=== PATIENT | female | born 2000 | race Caucasian/White ===

== ENCOUNTER → 2020-01-01 | Outpatient (CLI) | payer MEDICAID, SELFPAY ==
[2020-01-01 13:32] VITALS: BMI 37.9
[2020-01-01 17:34] LABS: Amphetamine Urine VISTA NEGATIVE (<1000 ng/mL); Barbiturate Urine VISTA NEGATIVE (< 200 ng/mL); Benzodiazepine Urine VISTA NEGATIVE (< 200 ng/mL); Cocaine Urine VISTA NEGATIVE (< 300 ng/mL); Ecstacy Urine VISTA NEGATIVE (< 500 ng/mL); Methadone Urine VISTA NEGATIVE (< 300 ng/mL); PCP Urine VISTA NEGATIVE (< 25 ng/mL); THC Urine VISTA POSITIVE (< 50 ng/mL); Vista UDS pH Range 6
[2020-01-01 20:36] LABS: Chlamydia Trachomatis by PCR Negative (Negative); Neisserai gonorrhoeae by PCR Negative (Negative); Probe Check PASS; Sample Adequacy Control PASS; Specimen Processing Control PASS
== END | disposition home or self-care (01) ==
LOC: LABSPEC 16:46
PROVIDERS: PCP Nurse Practitioner Family; Referring Provider Nurse Practitioner Women's Health; Visit Provider Nurse Practitioner Women's Health
DX: Z34.91 Encounter for supervision of normal pregnancy, unspecified, first trimester (principal)
CPT/HCPCS: 80307; 87086; 87088; 87491; 87591

== ENCOUNTER → 2020-01-13 16:02 | Outpatient (CLI) | payer MEDICAID, SELFPAY ==
[2020-01-01 13:32] VITALS: BMI 37.9
[2020-01-13 16:41] LABS: Absolute Lymphocyte Count 2.37 X10^3/uL (0.83-4.51); Absolute Neutrophil Count 10.4 X10^3/uL (2.0-7.7); Basophil# 0.05 X10^3/uL; Basophil% 0.4 % (0-1); Eosinophil# 0.09 X10^3/uL; Eosinophils% 0.7 % (0-5); Hematocrit 36.2 % (37-47); Hemoglobin 12.2 g/dL (12.0-15.0); Lymphocyte # 2.37 X10^3/ul (4.0); Lymphocyte % 17.6 % (19-41); Mean Corp Hgb Conc 33.7 g/dL (32-36); Mean Corpuscular Hgb 30.2 pg (27.0-32.0); Mean Corpuscular Volume 89.6 fL (81-99); Mean Platelet Vol. 9.8 fl (6.2-12.0); Monocyte# 0.53 X10^3/uL; Monocyte% 3.9 % (0-10); NRBC Flagged by Analyzer 0 % (0-5); Neutrophil # 10.38 X10^3/uL (2.7-7.7); Neutrophil % 76.8 % (47-70); Platelet Count 376 K/mm3 (150-450); RBC Distribution Width CV 13.7 % (11.6-14.6); RBC Distribution Width SD 45.1 fl (35.1-43.9); Red Blood Count 4.04 M/mm3 (4.2-5.4); White Blood Count 13.5 K/mm3 (4.4-11.0)
[2020-01-13 17:11] LABS: NATERA MAILED SPECIMEN
[2020-01-14 10:53] LABS: HIV - WCH Non-Reactive (Nonreactive); Hepatitis B Surface Antigen Non-Reactive (Nonreactive); Hepatitis C Antibody Non-Reactive (Nonreactive); Rubella IgG 307.7 IU/mL
[2020-01-15 03:25] LABS: Rapid Plasmin Reagin (RPR) NONREACTIVE (NONREACTIVE)
== END ==
PROVIDERS: PCP Nurse Practitioner Family; Referring Provider Nurse Practitioner Women's Health; Visit Provider Nurse Practitioner Women's Health
DX: Z31.430 Encounter of female for testing for genetic disease carrier status for procreative management (principal)
CPT/HCPCS: 36415; 85025; 86592; 86703; 86762; 86803; 86850; 86900; 86901; 87340

== ENCOUNTER → 2020-01-30 | Outpatient (CLI) | payer MEDICAID, SELFPAY ==
[2020-01-30 13:47] VITALS: BMI 37.9
[2020-01-30 17:07] LABS: Amphetamine Urine VISTA NEGATIVE (<1000 ng/mL); Barbiturate Urine VISTA NEGATIVE (< 200 ng/mL); Benzodiazepine Urine VISTA NEGATIVE (< 200 ng/mL); Cocaine Urine VISTA NEGATIVE (< 300 ng/mL); Ecstacy Urine VISTA NEGATIVE (< 500 ng/mL); Methadone Urine VISTA NEGATIVE (< 300 ng/mL); PCP Urine VISTA NEGATIVE (< 25 ng/mL); THC Urine VISTA POSITIVE (< 50 ng/mL); Vista UDS pH Range 6
== END | disposition home or self-care (01) ==
LOC: LABSPEC 16:17
PROVIDERS: PCP Nurse Practitioner Family; Referring Provider Obstetrics & Gynecology; Visit Provider Obstetrics & Gynecology
DX: O09.90 Supervision of high risk pregnancy, unspecified, unspecified trimester (principal); O23.40 Unspecified infection of urinary tract in pregnancy, unspecified trimester; O99.320 Drug use complicating pregnancy, unspecified trimester; F12.90 Cannabis use, unspecified, uncomplicated; Z3A.00 Weeks of gestation of pregnancy not specified
CPT/HCPCS: 80307; 87086; 87088

== ENCOUNTER → 2020-02-26 | Outpatient (CLI) | payer MEDICAID, SELFPAY ==
[2020-02-26 15:05] VITALS: BMI 37.9
== END | disposition home or self-care (01) ==
LOC: LABSPEC 15:52
PROVIDERS: PCP Nurse Practitioner Family; Referring Provider Obstetrics & Gynecology; Visit Provider Obstetrics & Gynecology
DX: Z36.9 Encounter for antenatal screening, unspecified (principal)
CPT/HCPCS: 36415

== ENCOUNTER → 2020-03-16 15:18 | Outpatient (CLI) | payer MEDICAID, SELFPAY ==
[2020-02-26 15:05] VITALS: BMI 37.9
[2020-03-16 15:30] VITALS: BP 127/75; PULSE 83; RESP 16; TEMP 36.1; O2SAT 97; BMI 40.7
[2020-03-16] MEDS: 0.9% NaCl Peripheral Flush Adult/Peds IV (15:45)
[2020-03-16] MEDS: Dextrose 5%-Lactated Ringers 1,000 ML 999 ML IV (15:45)
[2020-03-16] MEDS: Ondansetron 4 MG/2 ML Vial IV (16:01)
[2020-03-16 16:59] VITALS: BP 145/71; PULSE 79; TEMP 36.7
== END ==
PROVIDERS: PCP Nurse Practitioner Family; Referring Provider Nurse Practitioner Women's Health; Visit Provider Nurse Practitioner Women's Health
DX: E86.0 Dehydration (principal)
CPT/HCPCS: 96361; 96374; A4216; J2405

== ENCOUNTER → 2020-03-24 | Outpatient (CLI) | payer MEDICAID, SELFPAY ==
[2020-03-24 13:24] VITALS: BMI 41.1
[2020-03-24 18:54] LABS: Amphetamine Urine VISTA NEGATIVE (<1000 ng/mL); Barbiturate Urine VISTA NEGATIVE (< 200 ng/mL); Benzodiazepine Urine VISTA NEGATIVE (< 200 ng/mL); Cocaine Urine VISTA NEGATIVE (< 300 ng/mL); Ecstacy Urine VISTA NEGATIVE (< 500 ng/mL); Methadone Urine VISTA NEGATIVE (< 300 ng/mL); PCP Urine VISTA NEGATIVE (< 25 ng/mL); THC Urine VISTA POSITIVE (< 50 ng/mL); Vista UDS pH Range 5
== END | disposition home or self-care (01) ==
LOC: LABSPEC 17:30
PROVIDERS: PCP Nurse Practitioner Family; Referring Provider Nurse Practitioner Women's Health; Visit Provider Nurse Practitioner Women's Health
DX: F12.90 Cannabis use, unspecified, uncomplicated (principal)
CPT/HCPCS: 80307

== ENCOUNTER 2020-04-23 16:00 | Emergency (ER) | payer MEDICAID, SELFPAY ==
[2020-03-24 13:24] VITALS: BMI 41.1
[2020-04-23 16:01] VITALS: BP 135/88; PULSE 82; RESP 15; TEMP 36.3; O2SAT 100; BMI 42.0
--- NOTE | 2020-04-23 16:28 | ED.DCSUM_ITS ---
History of Present Illness Chief Complaint: Chest Other Informant: Patient Narrative: Patient states that she woke about 5 days ago with pain of the anterior aspect of the left lower chest. It is worse with movement touch breathing. She went to urgent care and was felt to be a pulled muscle. States that she was told to follow-up with her [employer] so she called them and they told her to come to the emergency department. She denies any significant cough or fevers. No rashes. She denies any known trauma. She noticed the pain when she woke from sleep. She does state that yesterday she took it easy and it felt better today. Past Medical History - Allergies and Home Meds Allergies/Adverse Reactions: Allergies No Known Allergies Allergy (Verified 04/23/20 16:04) Primary Care Physician: Bianca Borrero NP, TRACK REPAIRER-C [Primary Care Provider] - 1 Week if not improving Prior records reviewed: Yes Past Medical History: None Surgical History: noncontributory Smoking Status: Former smoker Drugs: None Review of Systems General: Denies: Chills, Fever, Sweats Eyes: Denies: Visual changes - bilaterally, Diplopia ENT: Denies: Rhinorrhea, Sore throat Cardiovascular: Reports: Chest pain. Denies: Palpitations Respiratory: Denies: Dyspnea, Cough, Dyspnea on exertion Gastrointestinal: Denies: Abdominal pain, Nausea, Vomiting, Diarrhea, Melena, Hematochezia Genitourinary: Denies: Dysuria, Hematuria, Frequency Musculoskeletal: Denies: Back pain, Extremity Pain Skin: Denies: Rash, Wounds Neurological: Denies: Headache, Weakness, Numbness Physical Exam Vital Signs/Narrative: Vital Signs Temp Pulse Resp BP Pulse Ox 04/23/20 16:01 97.3 F L 82 15 135/88 H 100 General: Well nourished, Well developed, No Acute Distress Head: Normocephalic, Atraumatic Eyes: Perrl, EOMI ENT: Moist mucous membranes, No rhinorrhea Neck: Supple, Nontender Cardiovascular: Regular rate, Regular rhythm, No murmurs Respiratory: No distress, CTA bilaterally, Chest tenderness - To palpation anterior lower left chest wall. Reproduces her pain. Abdomen: Soft, Nontender, Nondistended, Normal bowel sounds Back: Nontender, Normal Inspection Extremities: Nontender, No edema Skin: Normal color, No rash Neurological: Alert, Oriented x3, Cranial nerves II-XII grossly intact, Normal Strength, Normal Sensation Psychological: Normal affect, Normal Mood Diagnostic/Tx/Re-eval - Medical Decision Making Rib series does not show anything acute. I believe this to be chest wall related. Would recommend anti-inflammatories and rest. ED Disposition - Plan for ED Patient: Disposition: Home or Assisted Living Diagnosis: Chest wall pain Instructions: ED CHEST PAIN [place], ED Strain Chest Wall Referrals: Bianca Borrero TRACK REPAIRER, TRACK REPAIRER-C [Primary Care Provider] - 1 Week if not improving Additional Instructions: I would recommend taking Motrin 600 mg with food every 6-8 hours.
--- NOTE | 2020-04-23 16:35 | RAD_ITS ---
STUDY: X-RAY - UNILATERAL RIBS ( LEFT ) WITH CHEST REASON FOR EXAM: Female, 19 years old. LEFT ANTERIOR RIB PAIN UNDER BREAST. NO KNOWN INJURY. TECHNIQUE - RIBS: 4 view(s) of the ribs. TECHNIQUE - CHEST: Frontal view of the chest COMPARISON: None. FINDINGS - RIBS: Normal visualized ribs without a demonstrated fracture. FINDINGS - CHEST: The lungs are clear and expanded. There is no demonstrated pleural abnormality. Normal size heart. Normal mediastinum and marlene. Normal visualized pulmonary arteries. Normal visualized aortic arch and descending thoracic aorta. Normal visualized thoracic spine. Normal visualized ribs, clavicles, and shoulders. There is no demonstrated abnormality of the visualized soft tissue structures of the upper abdomen. RAD/Ribs Uni Min 3V w/PA Chest IMPRESSION: RIBS: Normal x-ray examination of the ribs. CHEST: Normal x-ray examination of the chest. Electronically Signed: Tony Harkins, at 16:53 EDT Tel , Service support ,
== END 2020-04-23 17:05 | disposition home or self-care (01) ==
LOC: ED 16:58
PROVIDERS: Emergency Provider Emergency Medicine; PCP Nurse Practitioner Family
DX: R07.89 Other chest pain (principal); Z87.891 Personal history of nicotine dependence
CPT/HCPCS: 71101; 99281

== ENCOUNTER → 2020-05-24 15:19 | Outpatient (CLI) | payer MEDICAID, SELFPAY ==
[2020-04-26 13:39] VITALS: BMI 42.7
[2020-05-24 15:28] LABS: Absolute Lymphocyte Count 2.11 X10^3/uL (0.83-4.51); Absolute Neutrophil Count 10.6 X10^3/uL (2.0-7.7); Basophil# 0.06 X10^3/uL; Basophil% 0.4 % (0-1); Eosinophil# 0.08 X10^3/uL; Eosinophils% 0.6 % (0-5); Hematocrit 34.8 % (37-47); Hemoglobin 11.3 g/dL (12.0-15.0); Lymphocyte # 2.11 X10^3/ul (4.0); Lymphocyte % 15.3 % (19-41); Mean Corp Hgb Conc 32.5 g/dL (32-36); Mean Corpuscular Hgb 29.7 pg (27.0-32.0); Mean Corpuscular Volume 91.3 fL (81-99); Mean Platelet Vol. 9.9 fl (6.2-12.0); Monocyte# 0.77 X10^3/uL; Monocyte% 5.6 % (0-10); NRBC Flagged by Analyzer 0 % (0-5); Neutrophil # 10.56 X10^3/uL (2.7-7.7); Neutrophil % 76.8 % (47-70); Platelet Count 352 K/mm3 (150-450); RBC Distribution Width CV 13.8 % (11.6-14.6); RBC Distribution Width SD 45.8 fl (35.1-43.9); Red Blood Count 3.81 M/mm3 (4.2-5.4); White Blood Count 13.8 K/mm3 (4.4-11.0)
[2020-05-24 15:39] LABS: Glucose Challenge Gest 1H 50g 122 mg/dL (70-140)
== END ==
PROVIDERS: PCP Nurse Practitioner Family; Referring Provider Obstetrics & Gynecology; Visit Provider Obstetrics & Gynecology
DX: Z34.90 Encounter for supervision of normal pregnancy, unspecified, unspecified trimester (principal); Z13.1 Encounter for screening for diabetes mellitus
CPT/HCPCS: 36415; 82950; 85025

== ENCOUNTER 2020-07-06 11:45 | Outpatient (CLI) | payer MEDICAID, SELFPAY ==
[2020-07-05 15:45] VITALS: BMI 45.7
[2020-07-06] VITALS (7 sets, daily range): BP systolic 132–140; BP diastolic 80–95; PULSE 79–90; TEMP 36.6–36.8; O2SAT 98; BMI 44.6
[2020-07-06] MEDS: Lactated Ringers 1,000 ML 999 ML IV (13:15)
[2020-07-06 13:31] LABS: Hematocrit 36.8 % (37-47); Hemoglobin 11.9 g/dL (12.0-15.0); Mean Corp Hgb Conc 32.3 g/dL (32-36); Mean Corpuscular Hgb 28.5 pg (27.0-32.0); Mean Corpuscular Volume 88.2 fL (81-99); Mean Platelet Vol. 10.6 fl (6.2-12.0); Platelet Count 329 K/mm3 (150-450); RBC Distribution Width SD 45.1 fl (35.1-43.9); Red Blood Count 4.17 M/mm3 (4.2-5.4); White Blood Count 14.4 K/mm3 (4.4-11.0)
[2020-07-06] MEDS: Ondansetron 4 MG/2 ML Vial IV (13:33)
[2020-07-06] MEDS: HYDROmorphone 1 MG/ML Syringe IV ×2 (13:40→15:37)
[2020-07-06 14:01] LABS: ALB/GLOB Ratio 0.7 RATIO (0.9-2.4); AST(SGOT) 10 U/L (15-37); Alanine Aminotransfer ALT/SGPT 8 U/L (13-56); Albumin, Serum 2.7 g/dL (3.2-5.0); Alkaline Phosphatase 145 U/L (45-117); Anion Gap 9 (5-15); BUN 11 mg/dL (7-18); BUN/Creat Ratio 17.7 RATIO (10-20); Chloride 107 mmol/L (98-107); Creatinine, Serum 0.62 mg/dL (0.55-1.02); EST Glomerular Filtration Rate 130 mL/min (>60); Est Glom Filt Rate - Afr Amer 158 mL/min (>60); Globulin 4.1 g/dL (2.2-4.2); Glucose 94 mg/dL (74-106); Protein, Total 6.8 g/dL (6.4-8.2); Sodium Level 138 mmol/L (136-145)
[2020-07-06] MEDS: Lactated Ringers 1,000 ML 200 ML IV (14:17)
--- NOTE | 2020-07-06 14:54 | US_ITS ---
STUDY: RENAL ULTRASOUND - COMPLETE REASON FOR EXAM: Female, 19 years old. right flank pain . Third trimester . TECHNIQUE: Ultrasound evaluation of the kidneys was performed with real-time and static soler-scale imaging. COMPARISON: None. FINDINGS: RIGHT KIDNEY: Normal location of the right kidney, which is normal in size. The right kidney measures 13.7 x 7.1 x 6.1 cm. There is a normal cortex of the right kidney. The renal cortex measures 1.7 cm. There is no right renal mass or cyst. There are no right renal calculi. There is mild to moderate right hydronephrosis. DISTAL RIGHT URETER: There is non-visualization of the distal right ureter. There is no demonstrated right ureterovesical junction calculus. There is no demonstrated right ureteral jet. LEFT KIDNEY: Normal location of the left kidney, which is normal in size. The left kidney measures 12.6 x 6.0 x 6.0 cm. There is a normal cortex of the left kidney. The renal cortex measures 1.9 cm. There is no left renal mass or cyst. There are no left renal calculi. There is an extra-renal pelvis of the left kidney. There is no distention of the renal calyces. DISTAL LEFT URETER: There is non-visualization of the distal left ureter. There is no demonstrated left ureterovesical junction calculus. There is no demonstrated left ureteral jet. BLADDER: Nonvisualized. US/Kidney and Bladder IMPRESSION: Mild to moderate hydronephrosis of the right kidney. Electronically Signed: Estevan Yusuf MD at 17:52 EST , Service support ,
[2020-07-06 15:12] LABS: Bacteria 0 SEEN /hpf (None Seen); Red Blood Cells-Urine 0 SEEN /hpf (0-5)
[2020-07-06 15:20] LABS: Color, Urine Yellow (Yellow); Glucose, Dipstick Normal (Normal); Ketone-Dipstick 50 mg/dl (Negative); Leukocyte Esterase-Dipstick Negative /ul (Negative); Nitrite-Dipstick Negative (Negative); Occult Blood-Urine Negative /ul (Negative); Protein-Dipstick Negative (Negative); Urine Bilirubin Dipstick Negative (Negative); Urine Clarity Sl. Cloudy (Clear); Urine Urobilinogen Normal (Normal)
[2020-07-06 16:08] LABS: Amorphous Sediment 1+ URATE; Mucous, Urine RARE /hpf (<or=2+); Squamous Epithelial Cells - UA 0-5 SEEN /hpf (5-10); White Blood Cells 0-5 SEEN /hpf (0-5)
--- NOTE | 2020-07-06 18:13 | OB.TRI.PN_ITS ---
Progress Notes Date of Service: 07/06/20 Progress Note: Patient presents for triage evaluation secondary to right flank pain kidney stones suspected FHT: 140 Moderate variability reactive no decelerations category I tracing [place]: no regular Contractions Assessment and plan: suspected nephrolithiasis- renal ultrasound no blockage seen, ivfs and iv narcotic given, Reactive NST, reassuring maternal and status patient discharged to home to follow-up as scheduled in office percocet given to go home. See problem list details for additional plan information. Laboratory Studies: Laboratory Tests 07/06/20 07/06/20 07/06/20 Range/Units 15:05 13:15 13:15 WBC 14.4 H (4.4-11.0) K/mm3 RBC 4.17 L (4.2-5.4) M/mm3 Hgb 11.9 L (12.0-15.0) g/dL Hct 36.8 L (37-47) % MCV 88.2 (81-99) fL MCH 28.5 (27.0-32.0) pg MCHC 32.3 (32-36) g/dL RDW Std Deviation 45.1 H (35.1-43.9) fl RDW Coeff of Elver 14.0 (11.6-14.6) % Plt Count 329 (150-450) K/mm3 MPV 10.6 (6.2-12.0) fl Sodium 138 (136-145) mmol/L Potassium 4.0 (3.5-5.1) mmol/L Chloride 107 (98-107) mmol/L Carbon Dioxide 22.0 (21.0-32.0) mmol/L Anion Gap 9 (5-15) BUN 11 (7-18) mg/dL Creatinine 0.62 (0.55-1.02) mg/dL Est GFR (MDRD) Af Amer 158 (>60) mL/min Est GFR (MDRD) Non-Af 130 (>60) mL/min BUN/Creatinine Ratio 17.7 (10-20) RATIO Glucose 94 (74-106) mg/dL Calcium 9.0 (8.5-10.1) mg/dL Total Bilirubin 0.20 (0.20-1.00) mg/dL AST 10 L (15-37) U/L ALT 8 L (13-56) U/L Alkaline Phosphatase 145 H (45-117) U/L Total Protein 6.8 (6.4-8.2) g/dL Albumin 2.7 L (3.2-5.0) g/dL Globulin 4.1 (2.2-4.2) g/dL Albumin/Globulin Ratio 0.7 L (0.9-2.4) RATIO Urine Color Yellow (Yellow) Urine Clarity Sl. Cloudy (Clear) Urine pH 6.0 (5.0 - 8.0) Ur Specific [place] 1.020 (1.002-1.030) Urine Protein Negative (Negative) mg/dl Urine Glucose (UA) Normal (Normal) mg/dl Urine Ketones 50 H (Negative) mg/dl Urine Occult Blood Negative (Negative) /ul Urine Nitrite Negative (Negative) Urine Bilirubin Negative (Negative) mg/dL Urine Urobilinogen Normal (Normal) mg/dl Ur Leukocyte Esterase Negative (Negative) /ul Urine RBC 0 SEEN (0-5) /hpf Urine WBC 0-5 SEEN (0-5) /hpf Ur Squamous Epith Cells 0-5 SEEN (5-10) /hpf Amorphous Sediment 1+ URATE Urine Bacteria 0 SEEN (None Seen) /hpf Urine Mucus RARE (<or=2+) /hpf - Problem List (1) Nephrolithiasis Status: Acute Comment: triage 07/06 suspected given 10 percocet script to fill PRN (2) Influenza vaccine administered Status: Acute Comment: 03/24/2020sc (3) Supervision of high-risk Status: Acute Qualifiers: Comment: PRR ANNA MARIE 08/08/20 boy Andre IV boyfriend Andre (goes by Reuben) (4) Marijuana use Status: Acute Comment: encouraged cessation, plan random tox screen. Positive 12/06/19, 01/30/20, 03/24/20 (5) Status: Acute Qualifiers: Comment: NIPT low risk, carrier negative . AFP negative, anatomy normal Multi Select Codes - Urinary/Genital Urinary/Genital CPT Codes: 70522-16 non-stress test Interp
== END 2020-07-06 18:20 | disposition home or self-care (01) ==
LOC: WPOUT 11:50 → WP 11:51
PROVIDERS: PCP Nurse Practitioner Family; Referring Provider Obstetrics & Gynecology; Visit Provider Obstetrics & Gynecology
DX: O99.891 Other specified diseases and conditions complicating pregnancy (principal); N13.30 Unspecified hydronephrosis; O09.93 Supervision of high risk pregnancy, unspecified, third trimester; O99.323 Drug use complicating pregnancy, third trimester; F12.90 Cannabis use, unspecified, uncomplicated; Z3A.00 Weeks of gestation of pregnancy not specified
CPT/HCPCS: 96361 ×5; 96374; 96375; 96376; 36415; 59025; 59050; 76770; 80053; 81001; 85027; 99218; J7120; G0378; J2405

== ENCOUNTER 2020-07-10 09:10 | Outpatient (CLI) | payer MEDICAID, SELFPAY ==
[2020-07-06 14:03] VITALS: BMI 44.6
[2020-07-10] VITALS (10 sets, daily range): BP systolic 128–145; BP diastolic 68–86; PULSE 82–90; TEMP 36.2–36.3; BMI 45.7
[2020-07-10] MEDS: Acetaminophen/Butalbital/Caffe 1 Tablet 2 TABLET PO (10:00)
[2020-07-10 10:19] LABS: Hemoglobin 11.3 g/dL (12.0-15.0); Mean Corp Hgb Conc 32.3 g/dL (32-36); Mean Corpuscular Volume 89.7 fL (81-99); Mean Platelet Vol. 10.6 fl (6.2-12.0); Platelet Count 324 K/mm3 (150-450); RBC Distribution Width CV 14.1 % (11.6-14.6); RBC Distribution Width SD 45.4 fl (35.1-43.9); White Blood Count 11.6 K/mm3 (4.4-11.0)
[2020-07-10 10:28] LABS: Protein, Urine (Random) 22.2 mg/dL (<11.9); Protein:Creat Ratio 255 mg/g CRE (0-200)
[2020-07-10 10:35] LABS: AST(SGOT) 9 U/L (15-37); Alanine Aminotransfer ALT/SGPT 7 U/L (13-56); Creatinine, Serum 0.59 mg/dL (0.55-1.02); EST Glomerular Filtration Rate 139 mL/min (>60); Est Glom Filt Rate - Afr Amer 168 mL/min (>60); Estimated Creatinine Clearance 126.87 ml/min; Uric Acid 4.8 mg/dL (2.6-6.0)
[2020-07-10] MEDS: Betamethasone/Betamethasone 30 MG/5 ML Vial 12 MG IM (10:57)
--- NOTE | 2020-07-10 12:37 | OB.TRI.NOTE ---
- Problem List (1) Gestational hypertension Status: Acute Comment: seen 07/10 given bmz x 1 bps 140/90 nl labs home bp checks repeat celestone fu in office sunday (2) Nephrolithiasis Status: Acute Comment: triage 07/06 suspected given 10 percocet script to fill PRN (3) Influenza vaccine administered Status: Acute Comment: 03/24/2020sc (4) Supervision of high-risk Status: Acute Qualifiers: Comment: PRR ANNA MARIE 08/08/20 boy Andre IV boyfriend Andre (goes by Reuben) (5) Marijuana use Status: Acute Comment: encouraged cessation, plan random tox screen. Positive 12/06/19, 01/30/20, 03/24/20 (6) Status: Acute Qualifiers: Comment: NIPT low risk, carrier negative . AFP negative, anatomy normal History of Present Illness Date of Service: 07/10/20 Was patient seen by the physician?: Yes Reason For Visit: ELEVATED BLOOD PRESSURE History of Present Illness: 19-year-old at 3 5 weeks 6 days presents with elevated blood pressure and right frontal headache. Headache resolved with Fioricet and blood pressures were in the 140s over 90s. Patient has been treated for kidney stones this week. Patient denies any change in vision or right upper quadrant pain. She denies any vaginal bleeding or loss of fluid admits good movement no regular contractions Allergies No Known Allergies Allergy (Verified 07/10/20 09:26) - Pertinent Past Medical History Medical History: Past Medical History (Last Reviewed 07/05/20 @ 15:47 by Silvia Christine) Anxiety Laboratory Studies: Laboratory Tests 07/10/20 07/10/20 07/10/20 Range/Units 09:58 09:58 09:58 WBC 11.6 H (4.4-11.0) K/mm3 RBC 3.90 L (4.2-5.4) M/mm3 Hgb 11.3 L (12.0-15.0) g/dL Hct 35.0 L (37-47) % MCV 89.7 (81-99) fL MCH 29.0 (27.0-32.0) pg MCHC 32.3 (32-36) g/dL RDW Std Deviation 45.4 H (35.1-43.9) fl RDW Coeff of Elver 14.1 (11.6-14.6) % Plt Count 324 (150-450) K/mm3 MPV 10.6 (6.2-12.0) fl Creatinine 0.59 (0.55-1.02) mg/dL Estim Creat Clear Calc 126.87 ml/min Est GFR (MDRD) Af Amer 168 (>60) mL/min Est GFR (MDRD) Non-Af 139 (>60) mL/min Uric Acid 4.8 (2.6-6.0) mg/dL AST 9 L (15-37) U/L ALT 7 L (13-56) U/L U Random Total Protein 22.2 H (<11.9) mg/dL Urine Creatinine 87.10 (NO RANGE EST.) mg/dL Protein/Creatinin Ratio 255 H (0-200) mg/g CRE Physical Exam Vitals: Vital Signs Temp Pulse BP 97.3 F L 87 145/86 H 07/10/20 09:31 07/10/20 10:52 07/10/20 10:52 General: Alert, Oriented x3 HEENT: Normocephalic Cardiovascular: Regular rate Lungs: Clear to auscultation Abdomen: Soft, Non Tender, Non-Distended Neurological: Deep Tendon Reflexes 2+/4 and Symmetrical, Neuro grossly intact. Negative for: Clonus NST - FHR Rate Baby A Baseline: 140 Variability:: Moderate Accelerations:: 15 x 15 Decelerations:: None NST Reactive:: Yes, Appropriate for gestational age FHR Category:: Category I Uterine Activity:: no Regular Impression/Plan 19-year-old at 35 weeks 6 days with gestational hypertension, plan home blood pressure checks and follow-up in the office on Sunday. Celestone given now and will repeat tomorrow in 24 hours. Reviewed preeclampsia precautions. Preeclampsia panel within normal limits negative proteinuria. Multi Select Codes - Visit Charges Office Visit/Consults: 11359 OV L3 Est - Urinary/Genital Urinary/Genital CPT Codes: 73443-07 non-stress test Interp
== END 2020-07-10 11:05 | disposition home or self-care (01) ==
LOC: WPOUT 09:14 → WP 09:14
PROVIDERS: PCP Nurse Practitioner Family; Referring Provider Obstetrics & Gynecology; Visit Provider Obstetrics & Gynecology
DX: O13.3 Gestational [pregnancy-induced] hypertension without significant proteinuria, third trimester (principal); O09.93 Supervision of high risk pregnancy, unspecified, third trimester; O99.323 Drug use complicating pregnancy, third trimester; F12.90 Cannabis use, unspecified, uncomplicated; Z3A.35 35 weeks gestation of pregnancy
CPT/HCPCS: 36415; 59025; 59050; 82565; 82570; 84156; 84450; 84460; 84550; 85027; 96372; 99218; G0378; J0702

== ENCOUNTER 2020-07-11 11:05 | Outpatient (CLI) | payer MEDICAID, SELFPAY ==
[2020-07-10 09:19] VITALS: BMI 45.7
[2020-07-11 11:18] VITALS: BP 137/82; PULSE 84; O2SAT 99
--- NOTE | 2020-07-11 11:19 | NURSING ---
Patient vital sign: 96.0 temporal 80 bpm monitor 137/82 R. upper arm 99% room air
[2020-07-11] MEDS: Betamethasone/Betamethasone 30 MG/5 ML Vial 12 MG IM (11:58)
--- NOTE | 2020-07-11 13:34 | OB.TRI.PN ---
Progress Notes Date of Service: 07/11/20 Progress Note: celestone given for ghtn and prematurity Multi Select Codes - Urinary/Genital Urinary/Genital CPT Codes: No Charge - report visit
--- NOTE | 2020-07-11 13:42 | NURSING ---
Dr. Johnson notified of patient's vital signs. Ok with plan to have patient seen in office on July 12.
== END 2020-07-11 12:05 | disposition home or self-care (01) ==
LOC: WPOUT 11:07 → WP 11:08
PROVIDERS: PCP Nurse Practitioner Family; Visit Provider Obstetrics & Gynecology
DX: O13.9 Gestational [pregnancy-induced] hypertension without significant proteinuria, unspecified trimester (principal); O60.00 Preterm labor without delivery, unspecified trimester; Z3A.00 Weeks of gestation of pregnancy not specified
CPT/HCPCS: 96372; 99218; G0378; J0702

== ENCOUNTER → 2020-07-12 | Outpatient (CLI) | payer MEDICAID, SELFPAY ==
[2020-07-12 16:29] VITALS: BMI 44.6
[2020-07-12 18:40] LABS: Protein, Urine (Random) 23.5 mg/dL (<11.9); Protein:Creat Ratio 358 mg/g CRE (0-200)
== END | disposition home or self-care (01) ==
LOC: LABSPEC 18:09
PROVIDERS: PCP Nurse Practitioner Family; Visit Provider Obstetrics & Gynecology
DX: O16.3 Unspecified maternal hypertension, third trimester (principal); Z3A.00 Weeks of gestation of pregnancy not specified
CPT/HCPCS: 82570; 84156

== ENCOUNTER → 2020-07-15 13:46 | Outpatient (CLI) | payer MEDICAID, SELFPAY ==
[2020-07-12 16:29] VITALS: BMI 44.6
--- NOTE | 2020-07-15 13:49 | US_ITS ---
STUDY: SECOND AND THIRD TRIMESTER OBSTETRICAL ULTRASOUND - LIMITED REASON FOR EXAM: Female, 19 years old GROWTH, HYPERTENSION LMP: PRIOR ULTRASOUND: None. TECHNIQUE: Transabdominal TECHNICAL QUALITY: Adequate. FINDINGS: There is a single intrauterine fetus. The fetus is in a cephalic presentation. There is demonstrated cardiac activity with a heart rate of 167 bpm. There is a normal amniotic fluid volume. The largest amniotic fluid pocket measures 5.5 cm. The amniotic fluid index (LUCERO) is 13.6 cm. The placenta is anterior in location and is not low lying. There are Grade 2 placental changes. BIOMETRY: BPD: 8.9 cm: 35 weeks, 6 days HC: 31.7 cm: 35 weeks, 4 days AC: 34.63 cm: 38 weeks, 3 days FL: 6.98 cm: 25 weeks, 5 days Age by LMP: 36 weeks, 4 days. ANNA MARIE by LMP: 08/08/2020. age by current US: 35 weeks, 6 days. ANNA MARIE by current US: 08/13/2020. Estimated weight: 3232 grams, +/- 485 grams, 78 percentile. US/OB Limited With Biometrics IMPRESSION: Single live intrauterine gestation with mean gestational age of 35 weeks and 6 days. Electronically Signed: Eduardo Eugene, at 15:18 EST , Service support ,
== END ==
PROVIDERS: PCP Nurse Practitioner Family; Visit Provider Obstetrics & Gynecology
DX: O09.93 Supervision of high risk pregnancy, unspecified, third trimester (principal); O13.3 Gestational [pregnancy-induced] hypertension without significant proteinuria, third trimester; Z3A.35 35 weeks gestation of pregnancy
CPT/HCPCS: 76816; 87081

== ENCOUNTER 2020-07-18 18:53 | Inpatient (IN) | payer MEDICAID, SELFPAY ==
[2020-07-15 14:47] VITALS: BMI 43.4
[2020-07-18 19:35] VITALS: BMI 44.7
[2020-07-18 19:36] VITALS: BP 142/70; PULSE 103; TEMP 37.1; O2SAT 98
[2020-07-18 19:37] VITALS: BP 142/70; PULSE 105
[2020-07-18] MEDS: Lactated Ringers 1,000 ML 50 ML IV (19:50)
--- NOTE | 2020-07-18 19:55 | PCM.HPOB.BLA ---
- Problem List (1) Encounter for induction of labor Status: Acute (2) 36 weeks gestation of Status: Acute Comment: electronic covid test ordered 07/16/20 (3) Pre-eclampsia Status: Acute Comment: home bp monitoring, plan IOL 37 weeks. nl growth and LUCERO reviewed preeclampsia precautions (4) Nephrolithiasis Status: Acute Comment: triage 07/06 suspected given 10 percocet script to fill PRN (5) Influenza vaccine administered Status: Acute Comment: 03/24/2020sc (6) Supervision of high-risk Status: Acute Qualifiers: Comment: PRR ANNA MARIE 08/08/20 boy Andre IV boyfriend Andre (goes by Reuben) (7) Marijuana use Status: Acute Comment: encouraged cessation, plan random tox screen. Positive 12/06/19, 01/30/20, 03/24/20 (8) Status: Acute Qualifiers: Comment: NIPT low risk, carrier negative . AFP negative, anatomy normal History and Physical Date of Admission: 07/18/20 Intake Vital Signs 07/15/20 Height 5 ft 4 in 07/15/20 Weight: 253 lb 4 oz 07/15/20 BP 144/100 H Intake Visit Reasons: BP check, coming after Growth u/s Allergies No Known Allergies Allergy (Verified 07/12/20 16:30) Last Menstral Period: 11/02/19 [facility] Medical History Anxiety (Acute) Family History Mother Diabetes Grandfather Diabetes Social History (Updated 07/15/20 @ 17:[address] Fadumo Johnson MD) Smoking Status: Former smoker alcohol intake: never substance use type: marijuana caffeine: Yes what type of physical activity do you participate in: none seatbelt use: always do you feel safe at home: Yes additional social history: Patient works at [employer]- Works at [employer] Pregancy History 1 Elective abortions Hx Para Spontaneous abortions Hx # Term Pregnancies Ectopic pregnancies Hx # Pregnancies Multiple births # of living children HPI BP check, coming after Growth u/s: Details: AZAEL JOHNSON is a 19 year old @ 37 weeks presents for IOL preeclampsia. she was given bmz 1 week ago for GHTN and then developed proteinuria the end of this past week. She denies any PANTOJA BV admits good FM no regular ctx. OB Visit ANNA MARIE Calculator Estimated Delivery Date Method Current WG Current Estimate 08/08/20 LMP (Certain) 36w 4d Expected Delivery Route/Plan Labor Preferences- CB/BF classes: considering labor support person: Reuben labor intervention preferences: [] pain management options preferred: undecided cut cord/dad catch: maybe : yes PP control planned: discussed possible routes of delivery and associated risks: [] special requests: [] Specific Issue/Plans flu vaccine: given tdap vaccine: given rhogam: na LARC form signed: yes movement and labor precautions reviewed. Initial Weight: 227 lb Date EGA Weight BP Urine Prot Glucose FHR FuHt Pres Dilation Effaced St Visit Note 01/01/20 8w 4d 227 lb 8 oz (+8 oz) 114/76 163 01/30/20 12w 5d 226 lb 6 oz (-10 oz) 122/80 Negative Negative 155 SM- no vb cramping SM- no vb cramping, questionable uti symptoms- repeat urine culture 02/26/20 16w 4d 232 lb 6 oz (+5 lb 6 oz) 130/80 Negative Negative 155 Sm- no vb cramping afp today 03/24/20 20w 3d 232 lb (+5 lb) 130/80 Negative Negative 142 MH-No VB, LOF. Feeling flutters. MH-No VB, LOF. Feeling flutters. 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 Rpt tox screen. Unable to swollow PNV, Rx flintstone chewables. 04/26/20 25w 1d 241 lb (+14 lb) 110/88 140 SM- no vb lof good fm no regualr ctx 05/24/20 29w 1d 243 lb (+16 lb) 112/78 135 29 SM- no vb lof good fm no regular ctx tdap today nl cbc gct 06/07/20 31w 1d 245 lb (+18 lb) 118/76 Trace Negative 159 31 MH-NO Vb, LOF. Good FM. 07/05/20 35w 1d 258 lb (+31 lb) 122/84 Negative Negative 140 35 SM- no vb lof good fm no regular ctx 07/12/20 36w 1d 260 lb (+33 lb) 132/83 Trace Negative 140 36 SM- reivewed bps at home, isolated elevation overall normal, repeat urine protein today and fu . s/p BMZ x 2. reviewed preeclampsia precautions 07/15/20 36w 4d 253 lb 4 oz (+26 lb 4 oz) 144/100 ACOG Second Trimester Second Trimester: Signs and Symptoms of Labor, Selecting a care provider, Reproductive Life Planning, Care Planning, Depression/Anxiety and Intimate Partner Violence; discussed Tobacco Cessation Diagnostics Diagnostics Diagnostics Blood Type O POSITIVE 01/13/20 Antibody Screen NEGATIVE 01/13/20 Glucose 1 Hr 50 gm 122 mg/dL (70-140) 05/24/20 HIV 1&2 Antibody Non-Reactive (Nonreactive) 01/13/20 Rubella IgG Antibody 307.7 IU/mL 01/13/20 Hgb 11.3 g/dL (12.0-15.0) L 07/10/20 Hct 35.0 % (37-47) L 07/10/20 RPR NONREACTIVE (NONREACTIVE) 01/13/20 Details: HIV: Urine Culture: Sequential Screen: NIPT Screen: ROS Const Reports system reviewed and no additional complaints, except as docu Card Reports system reviewed and no additional complaints, except as docu Resp Reports system reviewed and no additional complaints, except as docu GI Reports system reviewed and no additional complaints, except as docu, Reports nausea Reports system reviewed and no additional complaints, except as docu Musc Reports system reviewed and no additional complaints, except as docu Exam Const General: cooperative, healthy appearing, comfortable, anxious [facility] Head: normal to inspection Nose: external nose normal Face and sinus: normal facial exam Neck Neck: normal visual inspection, full ROM, no lymphadenopathy Thyroid: thyroid normal Chest Chest palpation & inspection: normal inspection of the chest Resp Effort & Inspection: normal respiratory effort GI Inspection: normal to inspection Palpation: soft, other (gravid uterus) Other: infant vertex and appropriate size for gestational age Other: Cervical Exam: 0 thi high Extrem General: pedal edema Assessment & Plan Problems 1. Pre-eclampsia O14.90 home bp monitoring, plan IOL 37 weeks. nl growth and LUCERO reviewed preeclampsia precautions 2. Influenza vaccine administered Z23 03/24/2020sc 3. Supervision of high-risk O09.90 PRR ANNA MARIE 08/08/20 boy Andre IV boyfriend Andre (goes by Reuben) 4. Marijuana use F12.90 encouraged cessation, plan random tox screen. Positive 12/06/19, 01/30/20, 03/24/20 5. Z34.90 NIPT low risk, carrier negative . AFP negative, anatomy normal Plan plan IOL at 37 weeks Patient presents IOL, plan management for with cytotec. Pain management: plans epidural. Management of any complications: preeclampsia with mild features I have reviewed the [facility] and made any clinically relevant updates. Orders Orders: Comprehensive Metabolic Profil Today O14.93 CBC W/Diff, Automated Today O14.93 Culture, Group B Streptococcus Today O09.90 Coding Level of Care Code Off vis,est,level 3 Diagnoses Pre-eclampsia O14.90 Influenza vaccine administered Z23 Supervision of high-risk O09.90 Marijuana use F12.90 Z34.90
[2020-07-18 20:12] LABS: Absolute Lymphocyte Count 2.22 X10^3/uL (0.83-4.51); Absolute Neutrophil Count 10.3 X10^3/uL (2.0-7.7); Basophil# 0.07 X10^3/uL; Basophil% 0.5 % (0-1); Eosinophil# 0.05 X10^3/uL; Eosinophils% 0.4 % (0-5); Hematocrit 34.1 % (37-47); Hemoglobin 11.3 g/dL (12.0-15.0); Lymphocyte # 2.22 X10^3/ul (4.0); Lymphocyte % 16.1 % (19-41); Mean Corp Hgb Conc 33.1 g/dL (32-36); Mean Corpuscular Hgb 29.2 pg (27.0-32.0); Mean Corpuscular Volume 88.1 fL (81-99); Mean Platelet Vol. 10.7 fl (6.2-12.0); Monocyte% 6.5 % (0-10); NRBC Flagged by Analyzer 0 % (0-5); Neutrophil # 10.34 X10^3/uL (2.7-7.7); Platelet Count 331 K/mm3 (150-450); RBC Distribution Width CV 14.2 % (11.6-14.6); RBC Distribution Width SD 45.6 fl (35.1-43.9); Red Blood Count 3.87 M/mm3 (4.2-5.4); White Blood Count 13.8 K/mm3 (4.4-11.0)
[2020-07-18 20:17] LABS: Partial Thromboplast Time 27.5 Seconds (24.1-36.2); Prothrombin Time (Protime)PT. 12.6 SECONDS (11.7-14.9)
[2020-07-18 20:27] LABS: AST(SGOT) 9 U/L (15-37); Alanine Aminotransfer ALT/SGPT 7 U/L (13-56); Creatinine, Serum 0.79 mg/dL (0.55-1.02); EST Glomerular Filtration Rate 99 mL/min (>60); Est Glom Filt Rate - Afr Amer 119 mL/min (>60); Estimated Creatinine Clearance 94.75 ml/min; Uric Acid 4.2 mg/dL (2.6-6.0)
[2020-07-18] MEDS: miSOPROStol 25 MCG TABLET VAGINAL (20:39)
[2020-07-18 21:05] VITALS: TEMP 36.6
[2020-07-18 21:06] VITALS: BP 134/83; PULSE 93; O2SAT 97
[2020-07-18 21:30] LABS: Protein, Urine (Random) 44.2 mg/dL (<11.9); Protein:Creat Ratio 354 mg/g CRE (0-200)
[2020-07-18 22:17] LABS: Amphetamine Urine VISTA NEGATIVE (<1000 ng/mL); Barbiturate Urine VISTA POSITIVE (< 200 ng/mL); Benzodiazepine Urine VISTA NEGATIVE (< 200 ng/mL); Cocaine Urine VISTA NEGATIVE (< 300 ng/mL); Ecstacy Urine VISTA NEGATIVE (< 500 ng/mL); Methadone Urine VISTA NEGATIVE (< 300 ng/mL); PCP Urine VISTA NEGATIVE (< 25 ng/mL); THC Urine VISTA POSITIVE (< 50 ng/mL); Vista UDS pH Range 5
[2020-07-18] MEDS: DiphenhydrAMINE 25 MG Capsule 50 MG PO (22:39)
[2020-07-18 22:46] LABS: Group B Strep DNA By PCR Negative (Negative); Internal Control PASS; Probe Check PASS; Specimen Processing Control PASS
[2020-07-18] MEDS: Lactated Ringers 500 ML 999 ML IV (22:51)
[2020-07-19] VITALS (38 sets, daily range): BP systolic 109–178; BP diastolic 56–104; PULSE 58–105; TEMP 36.1–37.2; O2SAT 82–100
[2020-07-19] MEDS: miSOPROStol 50 MCG TABLET VAGINAL (00:45)
[2020-07-19] MEDS: Mag Hydrox/Al Hydrox/Simeth 30 ML UDC PO (00:52)
[2020-07-19] MEDS: Ondansetron 4 MG/2 ML Vial IV ×2 (04:43→19:59)
[2020-07-19] MEDS: miSOPROStol 25 MCG TABLET PO (08:50)
[2020-07-19] MEDS: 0.9% Normal Saline Single 100 ML IV.SOLN. INTRA-UTER (08:51)
[2020-07-19] MEDS: Acetaminophen 500 MG Tablet PO (09:20)
[2020-07-19] MEDS: Lactated Ringers 500 ML 999 ML IV ×3 (10:00→19:34)
[2020-07-19] MEDS: fentaNYL-bupivacaine (epidural) 100 ML BAG EPIDURAL ×2 (12:10→19:55)
[2020-07-19] MEDS: Oxytocin 30 units/NS 500 ml 30 UNITS/500 ML IV.SOLN IV (13:10)
[2020-07-19] MEDS: Lactated Ringers 1,000 ML 200 ML IV ×2 (13:18→19:02)
[2020-07-19] MEDS: proCHLORPERazine 10 MG/2 ML Vial IV (22:40)
[2020-07-20] VITALS (26 sets, daily range): BP systolic 114–189; BP diastolic 63–95; PULSE 74–113; RESP 18; TEMP 36.5–38.1; O2SAT 93–100
[2020-07-20] MEDS: Lactated Ringers 1,000 ML 200 ML IV ×2 (00:23→05:39)
[2020-07-20] MEDS: fentaNYL-bupivacaine (epidural) 100 ML BAG EPIDURAL ×3 (02:05→10:39)
[2020-07-20] MEDS: Ondansetron 4 MG/2 ML Vial IV ×2 (05:39→14:42)
[2020-07-20] MEDS: Lactated Ringers 500 ML 999 ML IV ×2 (06:24→11:45)
[2020-07-20] MEDS: Oxytocin 30 units/NS 500 ml 30 UNITS/500 ML IV.SOLN IV (06:24)
[2020-07-20] MEDS: Acetaminophen 500 MG Tablet PO (08:20)
[2020-07-20] MEDS: DiphenhydrAMINE 50 MG/ML Syringe IV (09:59)
--- NOTE | 2020-07-20 11:50 | PN_ITS ---
Progress Note Patient now transitioning into active labor has may change from 6 to 8 cm 100% and +1 station with caput and some cervical swelling Antibiotics were started due to rising temp and tachycardia suspected triple I current tracing: FHT: 160 minimal to moderate variability no decelerations positive scalp stimulation no decelerations cat II [place]: iupc replaced multiple times but still difficult to read, appears to have regular contractions reviewed tracing abnormalities since last note: Periods of absent to minimal variability no recurrent decelerations. Patient making adequate cervical change now, Pitocin decreased and fluid bolus given. Will monitor and if no change in cat II tracing will reevaluate labor management STROKE Vital Signs/Narrative: Vital Signs Temp Pulse BP Pulse Ox 07/20/20 11:26 98.0 F 96 126/85 H 100 07/20/20 10:30 85 134/82 H 98 07/20/20 09:52 98.3 F 81 135/85 H 97 07/20/20 08:28 82 136/63 H 98
--- NOTE | 2020-07-20 12:45 | PCM.PN.BLA ---
Progress Note clindamycin added for elevated temp, suspected triple I and on amp, gent, and clinda now. 10 cm will start pushing STROKE Vital Signs/Narrative: Vital Signs Temp Pulse BP Pulse Ox 07/20/20 12:34 100.6 F H 100 121/92 H 98 07/20/20 11:26 98.0 F 96 126/85 H 100 07/20/20 10:30 85 134/82 H 98 07/20/20 09:52 98.3 F 81 135/85 H 97
[2020-07-20] MEDS: Oxytocin 30 units/NS 500 ml 30 UNITS/500 ML IV.SOLN 334 UNITS IV (14:09)
[2020-07-20] MEDS: Methylergonovine 0.2 MG/ML Ampul IM (14:11)
[2020-07-20] MEDS: Carboprost Tromethamine 250 MCG/ML Ampul IM (14:13)
--- NOTE | 2020-07-20 14:32 | PLAC_PTH ---
PATIENT: AZALE SULTANA LOC: WP U#:[id number] AGE/SX: 19 ROOM: WP002 RE07/18/[address]: Dr. Fadumo Johnson MD : 2000 BED: 1 DIS: 07/22/2020 SPEC #: [id number] RECD: 07/20/20 15:00 STATUS: JOSH PAUL #: [id number] REMY: 07/20/20 14:[address]: Fadumo Johnson DEPT: SURGICAL PATHOLOGY RECD BY: Eros Snyder ENTERED: 07/21/20 11:06 SP TYPE: PLACENTA OTHR DR: Bianca Borrero, CLIENT TECHNICAL PROFESSIONAL-C Tissues: Placenta, NOS Procedures: Surgery Specimen Level V HEADER OPERATION: Vaginal delivery PRE-OP DIAGNOSIS: Labor TISSUE SUBMITTED: Placenta MICROSCOPIC DIAGNOSIS Ingram placenta (463 gm): Umbilical cord - trivascular with no evidence of inflammation. Placental membranes - acute chorioamnionitis and acute deciduitis. Placental disc - Hector-Ruben change and acute vasculitis of superficial placental vessels and focal organizing intraparenchymal hemorrhage. AM:katlin 07/22/2020 MICROSCOPIC DESCRIPTION Slides are reviewed. GROSS DESCRIPTION SPECIMEN: PLACENTA / CLINICAL INFORMATION: A. Weight: 3.49 kg B. Gestational Age: 37 weeks C. Sex: Male PLACENTAL WEIGHT (POST FIXATION): 463 gm PLACENTAL DIMENSIONS: 18.5 x 18 x 3 cm PLACENTAL SHAPE: Usual ovoid PLACENTAL WEIGHT FOR GESTATIONAL AGE: Within 10-99th percentile (over/under percentile) MEMBRANES - Present A. Insertion: Marginal B. Site of rupture from edge: At edge of placental disc C. Color of membrane: Spencer-mcclellan D. Abnormalities: None UMBILICAL CORD - Present A. Color: Spencer-mcclellan B. Insertion: Eccentric C. Length: 35 cm D. Diameter: 1.2 cm E. Number of vessels: Three F. Abnormalities: None PLACENTAL DISC - Present A. Color of surface: Spencer-mcclellan B. surface abnormalities: None C. Maternal cotyledons: Intact with minimal tears D. Attached retro placental clot: No clot E. Cut surface: Dark red and spongy F. Lesions: None G. Separate clot: Absent SECTIONS SUBMITTED: 1. Umbilical cord ( end notched) 2. Umbilical cord, placental end 3. Membrane roll 4. Placental disc, and maternal surfaces 5. Placental disc, and maternal surfaces 6. Placental disc, and maternal surfaces AM:katlin 07/21/20 TC:2 CPT: 53587
[2020-07-20 15:02] LABS: Pathology Specimen OB SEE PATHOLOGY REPORT
--- NOTE | 2020-07-20 17:06 | PCM.OPRPT ---
Problem List (1) Encounter for induction of labor Status: Acute (2) 36 weeks gestation of Status: Acute Comment: electronic covid test ordered 07/16/20 (3) Pre-eclampsia Status: Acute Comment: home bp monitoring, plan IOL 37 weeks. nl growth and LUCERO reviewed preeclampsia precautions (4) Nephrolithiasis Status: Acute Comment: triage 07/06 suspected given 10 percocet script to fill PRN (5) Influenza vaccine administered Status: Acute Comment: 03/24/2020sc (6) Supervision of high-risk Status: Acute Qualifiers: Comment: PRR ANNA MARIE 08/08/20 elizabeth Powell IV boyfriensmith Powell (goes by Reuben) (7) Marijuana use Status: Acute Comment: encouraged cessation, plan random tox screen. Positive 12/06/19, 01/30/20, 03/24/20 (8) Status: Acute Qualifiers: Comment: NIPT low risk, carrier negative . AFP negative, anatomy normal Vaginal Delivery Maternal Presentation: Medically Indicated Induction iol preeclampsia Method of Induction: Pitocin Medical Reason for Induction: Preeclampsia, eclampsia Amniotic Membrane Rupture Type: Artificial Amniotic Fluid Description: Clear Final ANNA MARIE: 08/08/20 Gestational age: 37 Weeks and 2 Days Date of Procedure: 07/20/20 Pre-Operative Diagnosis: iol preeclampsia suspected triple I with tachycardia Post-Operative Diagnosis: same Surgery/ Procedure Performed: Vacuum Assisted Vaginal Delivery Type of Anesthesia: Epidural Description of Procedure: Patient began pushing and had tachycardia with progressive minimal variability and therefore the decision was made to proceed with operative vaginal delivery. Patient was consented and agreed. It was noted to be KYAW in the +3 station. Kiwi vacuum was applied within the green zone of pressure and with 2 pulls during 1:58 contractions with no pop offs the head delivered without complication and a mild to moderate shoulder dystocia was encountered which was managed with Wagner and suprapubic pressure to deliver the left shoulder as the anterior shoulder. The rest the delivered was placed on the maternal abdomen. Cord was clamped and cut and cord gases were sent. Second-degree perineal laceration was noted and repaired in the usual fashion with 3-0 Vicryl Rapide. EBL 500 cc with mild atony treated with Methergine and Hemabate and Pitocin and bimanual massage. Placental Delivery Description: Spontaneous Placenta Disposition: [facility] Codes - Urinary/Genital Urinary/Genital CPT Codes: 33587 Vaginal Delivery global pkg - vacuum
[2020-07-20] MEDS: Naproxen 250 MG Tablet 500 MG PO (19:54)
[2020-07-20] MEDS: Acetaminophen 500 MG Tablet 1000 MG PO (23:58)
[2020-07-20] MEDS: 0.9% Saline Lock 10 ML Syringe IV (23:59)
[2020-07-21 02:25] VITALS: BP 118/68; PULSE 87; RESP 18; TEMP 35.9
[2020-07-21] MEDS: Enoxaparin 40 MG/0.4 ML Syringe SC (04:45)
[2020-07-21 05:00] VITALS: BP 130/84; PULSE 88; RESP 18; TEMP 36.7
[2020-07-21 06:09] LABS: Hematocrit 25.4 % (37-47); Hemoglobin 8.7 g/dL (12.0-15.0); Mean Corp Hgb Conc 34.3 g/dL (32-36); Mean Corpuscular Hgb 29.9 pg (27.0-32.0); Mean Corpuscular Volume 87.3 fL (81-99); Mean Platelet Vol. 10.4 fl (6.2-12.0); Platelet Count 238 K/mm3 (150-450); RBC Distribution Width CV 14.3 % (11.6-14.6); RBC Distribution Width SD 44.8 fl (35.1-43.9); Red Blood Count 2.91 M/mm3 (4.2-5.4); White Blood Count 15.8 K/mm3 (4.4-11.0)
[2020-07-21 11:37] VITALS: BP 124/66; PULSE 89; RESP 18; TEMP 35.9
[2020-07-21] MEDS: Senna/Docusate Sodium 1 Tablet PO (11:51)
[2020-07-21] MEDS: Naproxen 250 MG Tablet 500 MG PO ×2 (11:52→21:10)
--- NOTE | 2020-07-21 17:00 | CASEMGMT ---
Social Work Assessment Labor and Delivery Unit Patient Address: [address] [place] [address] Phone number: [phone] Date of Referral: 07.18.2020 Time of Referral: 1946 Referred By: Dr. Johnson Date of Intervention: 07.21.20 Time of Intervention: 170 Reason for Referral: maternal history of THC use. History obtained from: medical records and mother of baby (MOB) Susie Mendoza; father of baby (FOB) Andre Cain also present for part of conversation. Household composition: MOB and the FOB live together and home situation is reported as safe and adequate. Plan to take to this residence. Patient's parent/guardian status: JOE is a 19 year old female, to the FOB who is 21 years old ( 7). Together for 2 years, and in December 2019. Privately, JOE denies any form of abuse in relationship with the FOB. baby is the first for both parents. is to be named, Andre Cain IV (born 07.20.2020). Medical History: JOE is G1, P0 to 1 after delivering Baby Andre. care started at 8 weeks gestation and regular thereafter. Deliver at 37 weeks. Agpars 8 and 9 at 1 and 5 minutes of life. Birthweight for Baby Andre pounds 11 ounces. Educational Status: JOE reports to have graduated from high school. No issues with reading, writing, or learning comprehension. Financial Status: JOE works at the [employer] and at [employer]. FOAshleigh works at [employer] but is in process of trying to be hired at [employer]. Infant Supplies: MOB and FOB report to have needed supplies including bassinet, crib, pack-n-play, cradle, car seat, clothing, diapers, wipes. Planning to both breast and bottle feed at this time. Childcare/Caregiver(s): MOB and FOB combined. Transportation: Both parents report to drive. Programs/Agencies Involved: Involved with [facility] for medical. Active with WIC. Verbally agrees to a [facility] referral. History of counseling, but not currently. Children Services/Legal Issues: MOB denies any legal issues. VIRA is on probation until December 2019. No reported children services involvement. Behavioral Health Issues: Mental Health History: MOB reports history of anxiety. Denies any history of suicidal ideation, planning or intent. [place] depression screen at score of 5 this date. Substance Use History: MOB reports history of substance use since teen years and even went to [facility] residential treatment through [facility] when MOB was 16. MOB endorses use of marijuana during and unable to provide a particulare reason that used this substance throughout. Last use is reported as 07.14.2020. MOB reports was prescribed Percocet from OBGYN office 2 weeks ago for kidney stones, and took 2 of those pills. MOB reports was given Dilaudid when at hospital for kidney pain issues. Also reports was given Flexeril. Has used Benadryl as needed. Besides these mentioned drugs, MOB denies nay other substance use during . 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 MOB denies history of heroin, opiates, other pills, ecstasy. Family History: Reports a brother with Bipolar disorder. FOB reports history of substance use issues, has used meth in the past and has reportedly been sober of this about a year Drug Screens: Maternal drug screens consistently positive for marijuana during with positive screens on - 7., 01.30.2020, 03.24.2020, and 07.18.2020. Screen on 07.18.2020 also showing positive for Barbiturates. MOB states to be unsure how this happened and denies use of barbiturates. 's urine drug screen positive for marijuana. Meconium is pending. Family/Social Stressors: [place] , but accepted. Both parents with history of substance use issues, and maternal use of marijuana in . MOB voices being upset about the positive barbiturates as states to be uncertain how this could be in system. Baby has been admitted to the [facility] for respiratory distress issues, for which has been a stress as well. Support Systems: MOB reports FOB, MOB's mother and grandmother rex all supports. Family lives in the area and are reportedly willing to help MOB with baby when and if needed. MOB reports to know about local AA and NA meetings, with preference for AA should MOB feel the need to get more support again in the future regarding substance use concerns. Depression/Shaken Baby/Safe Sleeping: MOB and FOB educated to shaken baby prevention and safe sleeping. Educated to depression, anxiety, psychosis. Educated that both moms and dads can be affected, risk factors, and importance of seeking out help and support should symptoms arise. Touched on the Baby Blues versus PPD. ASSESSMENT: Met with MOB and FOB together and then with MOB alone. Parents both cooperative and pleasant with social and political studies professor. Nondefensive in conversation, good eye contact. Mood anxious, affect constricted. MOB did become tearful and cried when discussing drug use in and worry about why MOB had Barbiturates in system, concern about baby's health. Supportive listening and encouragement given; emotional support offered. Discussed possibility of children service involvement due tot exposure to drugs in utero. Allowed opportunity to ask questions. Parents reports to have needed supplies to care for baby and access to outside sober supports to help with baby if needed. Parents agree to a [facility] referral. MOB declines a referral to counseling at this time. Educated MOB and FOB that this senior mortgage underwriter provides social work to the [facility] and that information from assessment will also be use for the [facility] social work assessment. MOB expressed understanding. Safe Plan of Care for related to substance use: Abstain from substance use. If something changes would not breast feed, would give formula to baby. Would have a sober person care for the baby. PLAN: MOB has been provided with packet on mood and anxiety disorders and a [facility] resource list. Will be calling [facility] Children Services due to substance exposed in utero. Will continue to follow. -ANNAMARIA Holloway, BLOSSOM
[2020-07-21 18:00] VITALS: BP 123/75; PULSE 92; RESP 18; TEMP 36.3
[2020-07-21 21:12] VITALS: BP 139/73; PULSE 99; RESP 16; TEMP 36.4
[2020-07-22 01:20] VITALS: BP 138/76; PULSE 95; RESP 16; TEMP 36.4
[2020-07-22] MEDS: Enoxaparin 40 MG/0.4 ML Syringe SC (03:55)
--- NOTE | 2020-07-22 07:40 | PN.OBGYN_ITS ---
Patient Problems: Active and Suspected Problems (Last Reviewed 07/15/20 @ 14:47 by Maribel Crisostomo) Encounter for induction of labor (Acute) 36 weeks gestation of (Acute) electronic covid test ordered 07/16/20 Pre-eclampsia (Acute) home bp monitoring, plan IOL 37 weeks. nl growth and LUCERO reviewed preeclampsia precautions Nephrolithiasis (Acute) triage 07/06 suspected given 10 percocet script to fill PRN Influenza vaccine administered (Acute) 03/24/2020sc Supervision of high-risk (Acute) PRR ANNA MARIE 08/08/20 boy Andre IV boyfriend Andre (goes by Reuben) Marijuana use (Acute) encouraged cessation, plan random tox screen. Positive 12/06/19, 01/30/20, 03/24/20 (Acute) NIPT low risk, carrier negative . AFP negative, anatomy normal Subjective: LATE ENTRY: PATIENT SEEN 07/21/20 at 0730 Patient doing well without complaints. Tolerating PO. Ambulating and voiding without difficulty. Breast feeding well. Denies chest pain, shortness of breath, calf pain/swelling, fevers, chills, lightheadedness. Objective: Laboratory Tests 07/21/20 07/18/20 07/18/20 Range/Units 06:05 21:00 21:00 WBC 15.8 H (4.4-11.0) K/mm3 RBC 2.91 L (4.2-5.4) M/mm3 Hgb 8.7 L (12.0-15.0) g/dL Hct 25.4 L (37-47) % MCV 87.3 (81-99) fL MCH 29.9 (27.0-32.0) pg MCHC 34.3 (32-36) g/dL RDW Std Deviation 44.8 H (35.1-43.9) fl RDW Coeff of Elver 14.3 (11.6-14.6) % Plt Count 238 (150-450) K/mm3 MPV 10.4 (6.2-12.0) fl Immature Gran % (Auto) (0.0-0.9) % Neut % (Auto) (47-70) % Lymph % (Auto) (19-41) % [place] % (Auto) (0-10) % Eos % (Auto) (0-5) % Baso % (Auto) (0-1) % Absolute Neuts (auto) (2.0-7.7) X10^3/uL Absolute Lymphs (auto) (0.83-4.51) X10^3/uL Nucleated RBC % (0-5) % PT (11.7-14.9) SECONDS INR APTT (24.1-36.2) Seconds Creatinine (0.55-1.02) mg/dL Estim Creat Clear Calc ml/min Est GFR (MDRD) Af Amer (>60) mL/min Est GFR (MDRD) Non-Af (>60) mL/min Uric Acid (2.6-6.0) mg/dL AST (15-37) U/L ALT (13-56) U/L U Random Total Protein 44.2 H (<11.9) mg/dL Urine Creatinine 125.00 (NO RANGE EST.) mg/dL Protein/Creatinin Ratio 354 H (0-200) mg/g CRE Urine Opiates Screen NEGATIVE (< 300 ng/mL) Urine Methadone Screen NEGATIVE (< 300 ng/mL) Ur Barbiturates Screen POSITIVE H (< 200 ng/mL) Ur Phencyclidine Scrn NEGATIVE (< 25 ng/mL) Ur Amphetamines Screen NEGATIVE (<1000 ng/mL) U Methamphetamin-MDMA NEGATIVE (< 500 ng/mL) U Benzodiazepines Scrn NEGATIVE (< 200 ng/mL) Urine Cocaine Screen NEGATIVE (< 300 ng/mL) U Cannabinoids Screen POSITIVE H (< 50 ng/mL) Ur Drug Screen Comment Group B Strep DNA (Negative) Specimen Comment Blood Type Antibody Screen 07/18/20 07/18/20 07/18/20 Range/Units 21:00 19:20 19:20 WBC (4.4-11.0) K/mm3 RBC (4.2-5.4) M/mm3 Hgb (12.0-15.0) g/dL Hct (37-47) % MCV (81-99) fL MCH (27.0-32.0) pg MCHC (32-36) g/dL RDW Std Deviation (35.1-43.9) fl RDW Coeff of Elver (11.6-14.6) % Plt Count (150-450) K/mm3 MPV (6.2-12.0) fl Immature Gran % (Auto) (0.0-0.9) % Neut % (Auto) (47-70) % Lymph % (Auto) (19-41) % [place] % (Auto) (0-10) % Eos % (Auto) (0-5) % Baso % (Auto) (0-1) % Absolute Neuts (auto) (2.0-7.7) X10^3/uL Absolute Lymphs (auto) (0.83-4.51) X10^3/uL Nucleated RBC % (0-5) % PT 12.6 (11.7-14.9) SECONDS INR 1.0 APTT 27.5 (24.1-36.2) Seconds Creatinine 0.79 (0.55-1.02) mg/dL Estim Creat Clear Calc 94.75 ml/min Est GFR (MDRD) Af Amer 119 (>60) mL/min Est GFR (MDRD) Non-Af 99 (>60) mL/min Uric Acid 4.2 (2.6-6.0) mg/dL AST 9 L (15-37) U/L ALT 7 L (13-56) U/L U Random Total Protein (<11.9) mg/dL Urine Creatinine (NO RANGE EST.) mg/dL Protein/Creatinin Ratio (0-200) mg/g CRE Urine Opiates Screen (< 300 ng/mL) Urine Methadone Screen (< 300 ng/mL) Ur Barbiturates Screen (< 200 ng/mL) Ur Phencyclidine Scrn (< 25 ng/mL) Ur Amphetamines Screen (<1000 ng/mL) U Methamphetamin-MDMA (< 500 ng/mL) U Benzodiazepines Scrn (< 200 ng/mL) Urine Cocaine Screen (< 300 ng/mL) U Cannabinoids Screen (< 50 ng/mL) Ur Drug Screen Comment Group B Strep DNA Negative (Negative) Specimen Comment Not Reportable Blood Type Antibody Screen 07/18/20 07/18/20 Range/Units 19:20 19:20 WBC 13.8 H (4.4-11.0) K/mm3 RBC 3.87 L (4.2-5.4) M/mm3 Hgb 11.3 L (12.0-15.0) g/dL Hct 34.1 L (37-47) % MCV 88.1 (81-99) fL MCH 29.2 (27.0-32.0) pg MCHC 33.1 (32-36) g/dL RDW Std Deviation 45.6 H (35.1-43.9) fl RDW Coeff of Elver 14.2 (11.6-14.6) % Plt Count 331 (150-450) K/mm3 MPV 10.7 (6.2-12.0) fl Immature Gran % (Auto) 1.500 H (0.0-0.9) % Neut % (Auto) 75.0 H (47-70) % Lymph % (Auto) 16.1 L (19-41) % [place] % (Auto) 6.5 (0-10) % Eos % (Auto) 0.4 (0-5) % Baso % (Auto) 0.5 (0-1) % Absolute Neuts (auto) 10.3 H (2.0-7.7) X10^3/uL Absolute Lymphs (auto) 2.22 (0.83-4.51) X10^3/uL Nucleated RBC % 0 (0-5) % PT (11.7-14.9) SECONDS INR APTT (24.1-36.2) Seconds Creatinine (0.55-1.02) mg/dL Estim Creat Clear Calc ml/min Est GFR (MDRD) Af Amer (>60) mL/min Est GFR (MDRD) Non-Af (>60) mL/min Uric Acid (2.6-6.0) mg/dL AST (15-37) U/L ALT (13-56) U/L U Random Total Protein (<11.9) mg/dL Urine Creatinine (NO RANGE EST.) mg/dL Protein/Creatinin Ratio (0-200) mg/g CRE Urine Opiates Screen (< 300 ng/mL) Urine Methadone Screen (< 300 ng/mL) Ur Barbiturates Screen (< 200 ng/mL) Ur Phencyclidine Scrn (< 25 ng/mL) Ur Amphetamines Screen (<1000 ng/mL) U Methamphetamin-MDMA (< 500 ng/mL) U Benzodiazepines Scrn (< 200 ng/mL) Urine Cocaine Screen (< 300 ng/mL) U Cannabinoids Screen (< 50 ng/mL) Ur Drug Screen Comment Group B Strep DNA (Negative) Specimen Comment Blood Type O POSITIVE Antibody Screen NEGATIVE - Physical Exam Vitals/I&O's: Vital Signs Temp Pulse Resp BP Pulse Ox 97.6 F L 95 16 138/76 H 98 07/22/20 01:20 07/22/20 01:20 07/22/20 01:20 07/22/20 01:20 07/20/20 12:34 Oxygen Delivery Method Room Air Weight: 256 lb 13.416 oz Body Mass Index (BMI) 44.7 Intake and Output for Last 24 Hours 07/20/20 07/21/20 07/22/20 23:59 23:59 23:59 Intake Total 5966.72 / 5966.72 106 / 106 Output Total 2400 / 2400 Balance 3566.72 / 3566.72 106 / 106 General: Alert, Oriented x3, Cooperative HEENT: Atraumatic, PERRLA, EOMI, Normocephalic Neck: Supple, No JVD Lungs: Clear to auscultation, Normal air movement Cardiovascular: Regular rate, No murmurs Abdomen: Bowel Sounds Present, Soft, Non Tender, - - fundus firm Extremities: No edema, No Calf Tenderness Neurological: Cranial nerves II-XII grossly intact, Neuro grossly intact Psych/Mental Status: Normal Affect, Appropriate Microbiology Past 72 Hours 07/18/20 Unknown Genital vaginal Group B Streptococcus Culture - Final Group B Beta Streptococcus is not isolated. Current Medications Acetaminophen (Acetaminophen 500 Mg Tablet) 1,000 mg PO Q8H PRN PRN PRN Reason: Pain Score 1-3 Last Admin: 07/20/20 23:58 Dose: 1,000 mg Documented by: Bisacodyl (Bisacodyl 10 Mg Suppository) 10 mg RECTAL UD PRN PRN Reason: If no BM Dibucaine (Dibucaine 30 Gm Tube) 1 applic TOPICAL TID PRN PRN; Protocol PRN Reason: Discomfort Enoxaparin Sodium (Enoxaparin 40 Mg/0.4 Ml Syringe) 40 mg SC DAILY@0300 PETRA Last Admin: 07/22/20 03:55 Dose: 40 mg Documented by: Hydrocortisone (Hydrocortisone 2.5% Crm) 1 applic TOPICAL TID PRN PRN; Protocol PRN Reason: Discomfort Methylergonovine Maleate (Methylergonovine 0.2 Mg/Ml Ampul) 0.2 mg IM X1 PRN PRN Reason: Excess bleeding/uterine atony Last Admin: 07/20/20 14:11 Dose: 0.2 mg Documented by: Naproxen (Naproxen 250 Mg Tablet) 500 mg PO Q8H PRN PRN PRN Reason: Pain Score 1-3 Last Admin: 07/21/20 21:10 Dose: 500 mg Documented by: Ondansetron HCl (Ondansetron 4 Mg/2 Ml Vial) 4 mg IV Q4H PRN PRN PRN Reason: Nausea Oxycodone HCl (Oxycodone 5 Mg Tablet) 5 - 10 mg PO Q4H PRN PRN PRN Reason: Pain Score 4-10 Senna/Docusate Sodium (Senna/Docusate Sodium 1 Tablet) 1 - 2 tablet PO DAILY PRN PRN PRN Reason: Constipation Last Admin: 07/21/20 11:51 Dose: 2 tablet Documented by: Simethicone (Simethicone 80 Mg Tablet) 80 mg PO PCHS PRN PRN Reason: Indigestion/Stomach pain Sodium Chloride (0.9% Saline Lock 10 Ml Syringe) 5 - 15 ml IV UD PRN PRN Reason: SALINE FLUSH Last Admin: 07/20/20 23:59 Dose: 10 ml Documented by: Medical Necessity - Tobacco Use Smoking Status: Former smoker Assessment/Plan All Active Problems (Last Reviewed 07/15/20 @ 14:47 by Maribel Crisostomo) Encounter for induction of labor (Acute) 36 weeks gestation of (Acute) Pre-eclampsia (Acute) Nephrolithiasis (Acute) Influenza vaccine administered (Acute) Supervision of high-risk (Acute) Marijuana use (Acute) (Acute) Proteinuria affecting in third trimester (Resolved) Gestational hypertension (Ruled-out) s/p PPD # 1 1. routine post delivery care 2. breast feeding- support given 3. rh positive 4. rubella immune
--- NOTE | 2020-07-22 08:21 | DCINST_ITS ---
Discharge Diet: No Restrictions Discharge Activity: Return to Normal Activity, May not drive while taking narcotic pain medications., May Shower May resume sexual activity in: 4-6 weeks Call your doctor if your incision/area has: Continuous Slow Oozing, Sudden Increased Bleeding, Increased Pain/ Swelling, Increased Redness, Foul Smelling Discharge Additional Instructions: If you experience any of the following, contact your healthcare provider. * Bleeding that soaks a pad every hour for 2 hours * Fever 100.4 or higher * Unrelieved incision or abdominal pain * Swelling, redness, discharge or bleeding from your incision or episiotomy site * Your incision begins to separate * Problems urinating (including inability to urinate or burning while urinating). * Visual changes * Severe headache * Flu-like symptoms * Pain or redness in one of both of your breasts * Pain, warmth, tenderness or swelling in your legs, especially the calf area * Frequent nausea and vomiting * Symptoms of depression or anxiety If you experience any of the following, call 911 or go to the nearest Emergency Room. * Chest pain * Problems breathing * Seizure activity * Partial or complete paralysis of a body part, slurred speech, weakness or drooping of the face, or a sudden inability to walk or hold your balance Allergies/Adverse Reactions: Allergies No Known Allergies Allergy (Verified 07/12/20 16:30) Medications to take at Discharge vitamin#30 30 mg iron-10 mg iron-folic acid 1 mg-omg3 capsule 1 cap PO DAILY 04/26/20 Acetaminophen [Tylenol Extra Strength] 1,000 mg PO Q6H PRN PRN 07/06/20 oxycodone 5 mg capsule 5 mg PO Q6H PRN #15 cap 07/07/20 Naproxen [Naprosyn] 250 - 500 mg PO Q8H PRN PRN #30 tab 07/22/20 The following prescriptions were given: Naproxen [Naprosyn] 250 - 500 mg PO Q8H PRN PRN #30 tab PRN Reason: MILD PAIN Transmission Status: Pending to [facility] Please Follow Up With: Fadumo Johnson MD - [phone] When: Call to make an appointment with your doctor in 6 weeks. If you had elevated Blood pressure or 4th degree laceration you will need to be seen in 2 weeks. Primary Care Physician: Bianca Borrero NP, [employer] [Primary Care Provider] - Test Results: Test results from this visit will be discussed in further detail at your follow- up appointment, if applicable.
--- NOTE | 2020-07-22 08:21 | PCM.PN.OB ---
Patient Problems: Active and Suspected Problems Nephrolithiasis (Acute) triage 07/06 suspected given 10 percocet script to fill PRN Influenza vaccine administered (Acute) 03/24/2020sc Marijuana use (Acute) encouraged cessation, plan random tox screen. Positive 12/06/19, 01/30/20, 03/24/20 Subjective: Patient doing well without complaints. Tolerating PO. Ambulating and voiding without difficulty. feeding well. Denies chest pain, shortness of breath, calf pain/swelling, fevers, chills, lightheadedness. - Physical Exam Vitals/I&O's: Vital Signs Temp Pulse Resp BP Pulse Ox 97.6 F L 95 16 138/76 H 98 07/22/20 01:20 07/22/20 01:20 07/22/20 01:20 07/22/20 01:20 07/20/20 12:34 Oxygen Delivery Method Room Air Weight: 256 lb 13.416 oz Body Mass Index (BMI) 44.7 Intake and Output for Last 24 Hours 07/20/20 07/21/20 07/22/20 23:59 23:59 23:59 Intake Total 5966.72 / 5966.72 106 / 106 Output Total 2400 / 2400 Balance 3566.72 / 3566.72 106 / 106 General: Alert, Oriented x3 Microbiology Past 72 Hours 07/18/20 Unknown Genital vaginal Group B Streptococcus Culture - Final Group B Beta Streptococcus is not isolated. Current Medications Acetaminophen (Acetaminophen 500 Mg Tablet) 1,000 mg PO Q8H PRN PRN PRN Reason: Pain Score 1-3 Last Admin: 07/20/20 23:58 Dose: 1,000 mg Documented by: Bisacodyl (Bisacodyl 10 Mg Suppository) 10 mg RECTAL UD PRN PRN Reason: If no BM Dibucaine (Dibucaine 30 Gm Tube) 1 applic TOPICAL TID PRN PRN; Protocol PRN Reason: Discomfort Enoxaparin Sodium (Enoxaparin 40 Mg/0.4 Ml Syringe) 40 mg SC DAILY@0300 PETRA Last Admin: 07/22/20 03:55 Dose: 40 mg Documented by: Hydrocortisone (Hydrocortisone 2.5% Crm) 1 applic TOPICAL TID PRN PRN; Protocol PRN Reason: Discomfort Methylergonovine Maleate (Methylergonovine 0.2 Mg/Ml Ampul) 0.2 mg IM X1 PRN PRN Reason: Excess bleeding/uterine atony Last Admin: 07/20/20 14:11 Dose: 0.2 mg Documented by: Naproxen (Naproxen 250 Mg Tablet) 500 mg PO Q8H PRN PRN PRN Reason: Pain Score 1-3 Last Admin: 07/21/20 21:10 Dose: 500 mg Documented by: Ondansetron HCl (Ondansetron 4 Mg/2 Ml Vial) 4 mg IV Q4H PRN PRN PRN Reason: Nausea Oxycodone HCl (Oxycodone 5 Mg Tablet) 5 - 10 mg PO Q4H PRN PRN PRN Reason: Pain Score 4-10 Senna/Docusate Sodium (Senna/Docusate Sodium 1 Tablet) 1 - 2 tablet PO DAILY PRN PRN PRN Reason: Constipation Last Admin: 07/21/20 11:51 Dose: 2 tablet Documented by: Simethicone (Simethicone 80 Mg Tablet) 80 mg PO PCHS PRN PRN Reason: Indigestion/Stomach pain Sodium Chloride (0.9% Saline Lock 10 Ml Syringe) 5 - 15 ml IV UD PRN PRN Reason: SALINE FLUSH Last Admin: 07/20/20 23:59 Dose: 10 ml Documented by: Medical Necessity - Tobacco Use Smoking Status: Former smoker Assessment/Plan All Active Problems (Last Updated 07/22/20 @ 09:11 by Angy Ayon) Nephrolithiasis (Acute) Influenza vaccine administered (Acute) Marijuana use (Acute) 36 weeks gestation of (Resolved) Encounter for induction of labor (Resolved) Pre-eclampsia (Resolved) (Resolved) Supervision of high-risk (Resolved) Proteinuria affecting in third trimester (Resolved) Gestational hypertension (Ruled-out) s/p PPD # 2 1. routine post delivery care 2. breast feeding- support given 3. rh positive 4. rubella immune
--- NOTE | 2020-07-22 08:21 | PCM.DCVAG ---
Discharge Diet: No Restrictions Discharge Activity: Return to Normal Activity, May not drive while taking narcotic pain medications., May Shower May resume sexual activity in: 4-6 weeks Call your doctor if your incision/area has: Continuous Slow Oozing, Sudden Increased Bleeding, Increased Pain/ Swelling, Increased Redness, Foul Smelling Discharge Additional Instructions: If you experience any of the following, contact your healthcare provider. Bleeding that soaks a pad every hour for 2 hours Fever 100.4 or higher Unrelieved incision or abdominal pain Swelling, redness, discharge or bleeding from your incision or episiotomy site Your incision begins to separate Problems urinating (including inability to urinate or burning while urinating). Visual changes Severe headache Flu-like symptoms Pain or redness in one of both of your breasts Pain, warmth, tenderness or swelling in your legs, especially the calf area Frequent nausea and vomiting Symptoms of depression or anxiety If you experience any of the following, call 911 or go to the nearest Emergency Room. Chest pain Problems breathing Seizure activity Partial or complete paralysis of a body part, slurred speech, weakness or drooping of the face, or a sudden inability to walk or hold your balance Allergies/Adverse Reactions: Allergies No Known Allergies Allergy (Verified 07/12/20 16:30) Medications to take at Discharge vitamin#30 30 mg iron-10 mg iron-folic acid 1 mg-omg3 capsule 1 cap PO DAILY 04/26/20 Acetaminophen [Tylenol Extra Strength] 1,000 mg PO Q6H PRN PRN 07/06/20 oxycodone 5 mg capsule 5 mg PO Q6H PRN #15 cap 07/07/20 Naproxen [Naprosyn] 250 - 500 mg PO Q8H PRN PRN #30 tab 07/22/20 The following prescriptions were given: Naproxen [Naprosyn] 250 - 500 mg PO Q8H PRN PRN #30 tab PRN Reason: MILD PAIN Transmission Status: Pending to [facility] Please Follow Up With: Fadumo Johnson MD - [phone] When: Call to make an appointment with your doctor in 6 weeks. If you had elevated Blood pressure or 4th degree laceration you will need to be seen in 2 weeks. Primary Care Physician: Bianca Borrero NP, [employer] [Primary Care Provider] - Test Results: Test results from this visit will be discussed in further detail at your follow-up appointment, if applicable.
[2020-07-22 10:23] VITALS: BP 134/65; PULSE 87; RESP 16; TEMP 36.3
--- NOTE | 2020-07-22 16:30 | CASEMGMT ---
Social Work Labor and Delivery Unit Referral to [facility] ([facility]) today, to Michelle De Los Santos, regarding substance exposed infant in utero. Other concerns/risk factors reviewed. Brief maternal and histories provided. Received call from Kamila Dowd at [facility] who is the assigned worker to this family, to investigate referral made by this bond underwriter. Kamila will attempt phone contact with the MOB today. MOB is discharging today, but will remain in a courtesy room on the unit so as to be close to bay who remains in the [facility]. Social work will continue to follow this family while baby is hospitalized in the [facility]. MOB has been given community resource information for [facility] and mood and anxiety disorder packet. [facility]G referral will be completed at time of baby's discharge from the [facility]. No other services requested or indicated. -ROBERT Holloway, WIPER BLENDER
--- NOTE | 2020-07-27 16:00 | CASEMGMT ---
Social Work Labor and Delivery Patient has been discharged as a patient, but for continuity of care from this delivery admission (this policy writer typist has continued to work with family while the baby is on the [facility]) this policy writer typist assisted MOB with a mental health follow up for intake assessment at [facility]. Release of information signed by patient/mother of baby this date. Follow up set for 08.27.2020 at 1000 with Yon Kebede. This will be a phone interview. Typed out information and provided to the patient. No other services requested or indicated. -ROBERT Holloway, CLERICAL WAREHOUSE WORKER
== END 2020-07-22 12:10 | disposition home or self-care (01) | DRG 560 ==
PROVIDERS: Admitting Provider Obstetrics & Gynecology; PCP Nurse Practitioner Family; Visit Provider Obstetrics & Gynecology
DX: O14.04 Mild to moderate pre-eclampsia, complicating childbirth (principal); O75.2 Pyrexia during labor, not elsewhere classified; O66.0 Obstructed labor due to shoulder dystocia; O70.1 Second degree perineal laceration during delivery; Z3A.36 36 weeks gestation of pregnancy; Z37.0 Single live birth
CPT/HCPCS: 59025; 59050; 76816; 80307; 82565; 82570; 84156; 84450; 84460; 84550; 85025; 85027; 85610; 85730; 86850; 86900; 86901; 87081; 87426; 87653; 88307; 99218; J7120; A4216; G0378; J2405

== ENCOUNTER → 2020-08-03 15:31 | Outpatient (CLI) | payer MEDICAID, SELFPAY ==
[2020-07-27 13:27] VITALS: BMI 41.0
[2020-08-03 16:04] LABS: Absolute Lymphocyte Count 2.37 X10^3/uL (0.83-4.51); Absolute Neutrophil Count 11.2 X10^3/uL (2.0-7.7); Basophil# 0.12 X10^3/uL; Basophil% 0.8 % (0-1); Eosinophil# 0.24 X10^3/uL; Eosinophils% 1.6 % (0-5); Hematocrit 34.6 % (37-47); Hemoglobin 11.1 g/dL (12.0-15.0); Lymphocyte # 2.37 X10^3/ul (4.0); Mean Corp Hgb Conc 32.1 g/dL (32-36); Mean Corpuscular Hgb 28.6 pg (27.0-32.0); Mean Corpuscular Volume 89.2 fL (81-99); Mean Platelet Vol. 9.6 fl (6.2-12.0); Monocyte# 0.72 X10^3/uL; Monocyte% 4.9 % (0-10); NRBC Flagged by Analyzer 0 % (0-5); Neutrophil # 11.21 X10^3/uL (2.7-7.7); POSITIVE COUNT YES; Platelet Count 583 K/mm3 (150-450); RBC Distribution Width CV 13.7 % (11.6-14.6); RBC Distribution Width SD 44.8 fl (35.1-43.9); Red Blood Count 3.88 M/mm3 (4.2-5.4); White Blood Count 14.8 K/mm3 (4.4-11.0)
[2020-08-03 16:06] LABS: Differential Indicated SCAN CRITERIA MET
[2020-08-03 16:27] LABS: ALB/GLOB Ratio 0.8 RATIO (0.9-2.4); AST(SGOT) 20 U/L (15-37); Alanine Aminotransfer ALT/SGPT 11 U/L (13-56); Albumin, Serum 3.2 g/dL (3.2-5.0); Alkaline Phosphatase 151 U/L (45-117); Anion Gap 6 (5-15); BUN 18 mg/dL (7-18); BUN/Creat Ratio 26.6 RATIO (10-20); Calcium,Total 9.5 mg/dL (8.5-10.1); Chloride 109 mmol/L (98-107); Creatinine, Serum 0.68 mg/dL (0.55-1.02); EST Glomerular Filtration Rate 118 mL/min (>60); Est Glom Filt Rate - Afr Amer 143 mL/min (>60); Globulin 4.1 g/dL (2.2-4.2); Glucose 76 mg/dL (74-106); Potassium 4.4 mmol/L (3.5-5.1); Protein, Total 7.3 g/dL (6.4-8.2); Sodium Level 139 mmol/L (136-145)
[2020-08-03 16:49] LABS: Differential Comment SCANNED
== END ==
PROVIDERS: PCP Nurse Practitioner Family; Referring Provider Obstetrics & Gynecology; Visit Provider Obstetrics & Gynecology
DX: R03.0 Elevated blood-pressure reading, without diagnosis of hypertension (principal)
CPT/HCPCS: 36415; 80053; 85025

== ENCOUNTER 2021-07-05 11:09 | Emergency (ER) | payer MEDICAID, SELFPAY ==
[2021-07-05 11:11] VITALS: BP 122/84; PULSE 105; RESP 18; TEMP 36.1; O2SAT 99; BMI 43.5
--- NOTE | 2021-07-05 13:01 | US_ITS ---
STUDY: FIRST TRIMESTER OBSTETRICAL ULTRASOUND REASON FOR EXAM: Female, 20 years old preg and bleeding LMP: 05/26/2021 TECHNIQUE: Transvaginal TECHNICAL QUALITY: Adequate. PRIOR ULTRASOUND: None. FINDINGS: There is visualization of a single gestational sac in a normal intrauterine position. The mean sac diameter (MSD) measures 5 mm, indicating an estimated gestational age (EGA) of 5 weeks, 1 days. The gestational sac shape is within normal limits. There is no demonstrated yolk sac.. The placenta is non-visualized. There is visualization of a embryo. The crown-rump length (CRL) measures 2 mm, indicating an estimated gestational age (EGA) of weeks, days.. The estimated gestation age (EGA) by LMP is 5 weeks, 5 days. The estimated date of delivery (ANNA MARIE) by LMP is 03/02/2022. The estimated gestation age (EGA) by US is 5 weeks, 1 days. The estimated date of delivery (ANNA MARIE) by US is 03/06/2022. The uterus measures 7.8 x 3.8 x 4.0 cm. There is no demonstrated uterine fibroid. The cervix is closed. The right ovary measures 1.6 x 1.3 x 1.8 cm. There is no right ovarian cyst. There is no visualized right adnexal mass or complex lesion. The left ovary measures 2.1 x 1.4 x 1.4 cm. There is no left ovarian cyst. There is no visualized left adnexal mass or complex lesion. There is no fluid in the cul de sac. US/Transvaginal w/Preg US IMPRESSION: Early intrauterine gestational sac in the lower uterine segment with no definite heart tones. Differential diagnosis includes an early intrauterine , intrauterine demise with incomplete . Correlation with serial beta HC measurements is recommended. Electronically Signed: Keenan Alvarado MD at 14:40 EST Tel , Service support ,
--- NOTE | 2021-07-05 13:03 | EDS_ITS ---
HPI HPI - Female History of Present Illness Chief Complaint: Vag Bld, Preg Informant: patient Pain Pain: Positive for Pelvic Pain Onset: Yesterday Context: Gradual Onset Timing: Intermittent Quality: Positive for Cramping Current Severity: Mild Maximum Severity: Mild Bleeding Issue: Positive for Vaginal bleeding and Passing clots Onset: Today and Yesterday Timing: Intermittent Current Severity: Mild Associated Symptoms Test: Positive P: 1 Ab: 0 Narrative Narrative: 20-year-old female G2, P1 Ab0. Had a child beginning of 2020. Currently is about 5 weeks . She has had no care. Her last menstrual period was around May 26. She has had no care as of yet. Said last night she started some mild vaginal bleeding today had a few small clots. No tissue. And mild pelvic cramping. No discharge. No dysuria. She was seen in the emergency department last night reportedly had an ultrasound that was okay according to her. Stated the bleeding started after that. Prior similar symptoms: No Recent Illness/Hospitalization: No PFSH PFSH Medical History (Updated 07/05/21 @ 15:[address] Guero Oviedo MD) Anxiety Pre-eclampsia Home Medications NK 07/05/21 [History Last Taken Unknown] Allergy/AdvReac Type Severity Reaction Status Date / Time No Known Allergies Allergy Verified 07/05/21 11:11 Family History Mother Diabetes Grandfather Diabetes Social History Smoking Status: Current some day smoker tobacco type: cigarettes alcohol intake: never substance use type: marijuana caffeine: Yes what type of physical activity do you participate in: none seatbelt use: always do you feel safe at home: Yes additional social history: Patient works at [employer]- Works at [employer] ROS ROS ED ROS Narrative Vaginal bleeding. Review of Systems ROS Unobtainable: Denies due to encephalopathy Constitutional Constitutional ED: Denies chills, fever(s) or subjective Eyes Eyes: Denies blurry vision or change in vision ENT ENT ED: Denies ear pain or rhinorrhea Cardiovascular Cardiovascular: Denies chest pain or palpitations Respiratory/Chest Respiratory/Chest: Denies cough or dyspnea Gastrointestinal Gastrointestinal: Denies abdominal pain, diarrhea, nausea or vomiting Genitourinary Genitourinary ED: Denies dysuria Musculoskeletal Musculoskeletal: Denies arthralgias or myalgias Integumentary Denies abscess or rash Neurologic Neurologic: Denies headache(s) or weakness Psychiatric Psychiatric: Denies anxiety or depression Endocrine Endocrinology: Denies polydipsia or polyuria Hematologic/Lymphatic Hematologic/Lymphatic: Denies easy bruising Allergic/Immunologic Allergic/Immunologic ED: Denies urticaria EXAM Physical Exam Narrative Exam Narrative: 20-year-old female no acute distress. Vital signs stable afebrile. HEENT exam unremarkable. Lungs are clear. Heart regular rhythm no murmur. Abdomen soft nontender. Moving all 4 extremities. Nontender no edema. Const Vital Signs: 07/05/21 11:11 07/05/21 13:08 Temperature 97.0 F L Temperature Source Temporal Pulse Rate 105 H 82 Respiratory Rate 18 16 Blood Pressure 122/84 H 128/85 H Blood Pressure Mean 96 99 Pulse Ox 99 97 Oxygen Delivery Method Room Air Room Air Positive well nourished, well developed and obese; Negative for cachectic, contractures or unkempt General Appearance ED: well developed and NAD; Negative for unkempt, cachectic, contractures or pallor Nutritional Appearance: obese; Negative for cachectic HEENT Reports moist mucous membranes Negative for trauma or tenderness Eyes PERRL and EOMs intact bilaterally Neck no lymphadenopathy, supple and no JVD Thyroid: Negative for tender Chest Wall inspection of chest normal and palpation of chest normal Resp normal respiratory effort and clear to auscultation bilaterally Cardio regular rate, regular rhythm, S1 normal heart sound and no murmurs; Negative for no JVD Rhythm: Negative for abnormal rhythm GI normal to inspection, nondistended, normoactive bowel sounds, soft to palpation, non-tender, non-distended and no masses Auscultation: normoactive bowel sounds Palpation: Negative for tender, guarding or rigid Back/Spine no CVA tenderness General Back: Negative for CVA tenderness Extremity normal to inspection and full ROM General Extremety ED: Negative for edema or tenderness General Extremity: Negative for edema Neuro oriented x3 Sensorium / Orientation: alert, oriented to person, oriented to place and oriented to time Motor Exam: strength 5/5 throughout Psych mental status grossly normal Appearance: Negative for unkempt Mood & Affect: Negative for depressed or tearful Skin no rashes or lesions noted and no wounds General Skin Exam: Negative for jaundice or pallor MDM MDM MDM Narrative Medical decision making narrative: Old G2, P1 AB female with vaginal bleeding started last night and currently 5 weeks . On old labs her prior blood type is O+. We will get a quant and a pelvic ultrasound. Quantitative hCG was 1013. Ultrasound showed a sac with no heart tones. Consistent with either early or early incomplete miscarriage. I discussed this with the patient. I spoke to her MULTIMEDIA ARTIST Dr. Fadumo Johnson. Patient has appointment to see her on . Most likely they will repeat a quant and/or ultrasound. Patient is comfortable being discharged home. She knows return if she has heavy bleeding. Lab Data Attestation: I reviewed the patient's lab results. Labs: Laboratory Results - last 24 hr 07/05/21 13:17 HCG, Quant 1013 H Radiography Diagnostic Testing: Clinical Impression(s) from Imaging Studies Obstetrics Ultrasound 07/05/21 13:01 IMPRESSION: Early intrauterine gestational sac in the lower uterine segment with no definite heart tones. Differential diagnosis includes an early intrauterine , intrauterine demise with incomplete . Correlation with serial beta HC measurements is recommended. Electronically Signed: Keenan Alvarado MD at 14:40 EST Tel , Service support , Discharge Plan Triage Chief Complaint: Vag Bld, Preg ED Provider: Guero Oviedo Dx/Rx/DC Orders Clinical Impression: Intrauterine , Vaginal bleeding, Threatened miscarriage Instructions: ED Possible Miscarriage ... Prescriptions: No Action NK RF: 0 Primary Care Provider: Bianca Borrero NP Referrals: Fadumo Johnson MD [STAFF PHYSICIAN] - 2 Days Bianca Borrero NP, [employer]-[facility] [Primary Care Provider] - Activity Restrictions/Additional Instructions: Keep your scheduled appointment to see Dr. Fadumo Johnson. Most likely they will do a repeat quant and a repeat ultrasound in 48 hours. This could be a threatened miscarriage or still could possibly be an early which is vaginal bleeding. Tylenol for pain. No heavy lifting. No intercourse. Return if heavy bleeding with clots. Otherwise follow-up with your MULTIMEDIA ARTIST's office on . Disposition Disposition: Home, Self Care
[2021-07-05 13:08] VITALS: BP 128/85; PULSE 82; RESP 16; O2SAT 97
[2021-07-05 14:22] LABS: hCG Titer Quant., Serum 1013 mIU/mL (1-3)
[2021-07-05 15:14] VITALS: BP 128/82; PULSE 88; RESP 16; O2SAT 98
== END 2021-07-05 15:16 | disposition home or self-care (01) ==
PROVIDERS: Emergency Provider Emergency Medicine; PCP Nurse Practitioner Family; Visit Provider Emergency Medicine
DX: O20.0 Threatened abortion (principal); O99.321 Drug use complicating pregnancy, first trimester; F12.90 Cannabis use, unspecified, uncomplicated; R10.2 Pelvic and perineal pain; Z3A.01 Less than 8 weeks gestation of pregnancy; F17.210 Nicotine dependence, cigarettes, uncomplicated; O99.331 Smoking (tobacco) complicating pregnancy, first trimester
CPT/HCPCS: 76817; 84702; 99283; J7030

== ENCOUNTER 2021-07-06 17:45 | Outpatient (CLI) | payer MEDICAID, SELFPAY ==
[2021-07-06 18:45] LABS: hCG Titer Quant., Serum 697 mIU/mL (1-3)
== END 2021-07-06 23:59 | disposition short-term general hospital (02) ==
PROVIDERS: PCP Nurse Practitioner Family; Visit Provider Obstetrics & Gynecology
DX: O20.9 Hemorrhage in early pregnancy, unspecified (principal); Z3A.00 Weeks of gestation of pregnancy not specified
CPT/HCPCS: 36415; 84702

== ENCOUNTER → 2023-01-25 | Outpatient (CLI) | payer OTHER, MEDICAID, SELFPAY ==
--- NOTE | 2023-01-25 12:26 | US_ITS ---
STUDY: FIRST TRIMESTER OBSTETRICAL ULTRASOUND REASON FOR EXAM: Female, 22 years old . Dating. LMP: November 23, 2022. TECHNIQUE: Transvaginal TECHNICAL QUALITY: Adequate. PRIOR ULTRASOUND: None. FINDINGS: There is visualization of a single gestational sac in a normal intrauterine position. The mean sac diameter (MSD) measures 3.3 cm, indicating an estimated gestational age (EGA) of 8 weeks, 3 days. The gestational sac shape is within normal limits. There is a visualized yolk sac. The yolk sac measures 4 mm.. The placenta is non-visualized. There is visualization of a live embryo. The crown-rump length (CRL) measures 2.3 cm, indicating an estimated gestational age (EGA) of 8 weeks, 5 days. There is demonstrated cardiac activity with a heart rate of 179 bpm. The estimated gestation age (EGA) by LMP is 9 weeks, 0 days. The estimated date of delivery (ANNA MARIE) by LMP is August. The estimated gestation age (EGA) by US is 8 weeks, 4 days. The estimated date of delivery (ANNA MARIE) by US is September 01, 2022. The uterus measures 9.8 cm x 7 cm x 6.1 cm. There is no demonstrated uterine fibroid. The cervix is closed. The right ovary measures 1.6 cm x 1 cm x 1.1 cm. There is no right ovarian cyst. There is no visualized right adnexal mass or complex lesion. The left ovary measures 2.1 cm x 1.8 cm x 1.5 cm. There is no left ovarian cyst. There is no visualized left adnexal mass or complex lesion. There is no fluid in the cul de sac. US/Transvaginal w/Preg US IMPRESSION: Single live intrauterine gestation with a mean gestational age of 8 weeks and 4 days. Electronically Signed: Eduardo Eugene MD at 15:35 EDT ,
[2023-01-25 13:59] LABS: Amphetamine Urine VISTA NEGATIVE (<1000 ng/mL); Barbiturate Urine VISTA NEGATIVE (< 200 ng/mL); Benzodiazepine Urine VISTA NEGATIVE (< 200 ng/mL); Cocaine Urine VISTA NEGATIVE (< 300 ng/mL); Ecstacy Urine VISTA NEGATIVE (< 500 ng/mL); Methadone Urine VISTA NEGATIVE (< 300 ng/mL); PCP Urine VISTA NEGATIVE (< 25 ng/mL); THC Urine VISTA POSITIVE (< 50 ng/mL); Vista UDS pH Range 5
[2023-01-25 14:01] LABS: Protein, Urine (Random) 44.5 mg/dL (<11.9); Protein:Creat Ratio 129 mg/g CRE (0-200)
[2023-01-27 12:08] LABS: Chlamydia By Nucleic Acid AMP Positive (Negative); Gonococcus By Nucleic Acid AMP Negative (Negative)
[2023-01-29 16:09] LABS: HPV APTIMA, High Risk Negative (Negative)
== END | disposition home or self-care (01) ==
PROVIDERS: PCP Nurse Practitioner Family; Referring Provider Obstetrics & Gynecology; Visit Provider Obstetrics & Gynecology
DX: O09.299 Supervision of pregnancy with other poor reproductive or obstetric history, unspecified trimester (principal); F12.99 Cannabis use, unspecified with unspecified cannabis-induced disorder; O99.320 Drug use complicating pregnancy, unspecified trimester; Z3A.00 Weeks of gestation of pregnancy not specified
CPT/HCPCS: 76817; 80307; 82570; 84156; 87086; 87088; 87491; 87591; 87624; 88175; G0145

== ENCOUNTER → 2023-02-08 | Outpatient (CLI) | payer OTHER, MEDICAID, SELFPAY ==
[2023-02-08 14:04] LABS: Absolute Neutrophil Count 9.1 X10^3/uL (2.0-7.7); Basophil# 0.05 X10^3/uL; Basophil% 0.4 % (0-1); Eosinophil# 0.07 X10^3/uL; Eosinophils% 0.6 % (0-5); Hematocrit 38.2 % (37-47); Hemoglobin 12.5 g/dL (12.0-15.0); Lymphocyte % 17.8 % (19-41); Mean Corp Hgb Conc 32.7 g/dL (32-36); Mean Corpuscular Hgb 29.4 pg (27.0-32.0); Mean Corpuscular Volume 89.9 fL (81-99); Mean Platelet Vol. 9.6 fl (6.2-12.0); Monocyte% 3.4 % (0-10); NRBC Flagged by Analyzer 0 % (0-5); Platelet Count 375 K/mm3 (150-450); RBC Distribution Width CV 14.5 % (11.6-14.6); RBC Distribution Width SD 47.7 fl (35.1-43.9); Red Blood Count 4.25 M/mm3 (4.2-5.4); White Blood Count 11.8 K/mm3 (4.4-11.0)
[2023-02-08 14:35] LABS: ALB/GLOB Ratio 0.7 RATIO (0.9-2.4); AST(SGOT) 9 U/L (15-37); Alanine Aminotransfer ALT/SGPT < 6 U/L (13-56); Alkaline Phosphatase 92 U/L (45-117); Anion Gap 7 (5-15); BUN 8 mg/dL (7-18); BUN/Creat Ratio 13.9 RATIO (10-20); Calcium,Total 9.1 mg/dL (8.5-10.1); Chloride 105 mmol/L (98-107); Creatinine, Serum 0.58 mg/dL (0.55-1.02); EST Glomerular Filtration Rate 139 mL/min (>60); Est Glom Filt Rate - Afr Amer 168 mL/min (>60); Globulin 4.3 g/dL (2.2-4.2); Glucose 187 mg/dL (74-106); Glucose Challenge Gest 1H 50g 187 mg/dL (70-140); Potassium 3.8 mmol/L (3.5-5.1); Protein, Total 7.3 g/dL (6.4-8.2); Sodium Level 136 mmol/L (136-145)
[2023-02-08 14:55] LABS: NATERA MAILED SPECIMEN
[2023-02-08 15:13] LABS: HIV - WCH Non-Reactive (Nonreactive); Hepatitis B Surface Antigen Non-Reactive (Nonreactive); Hepatitis C Antibody Non-Reactive (Nonreactive); Rubella IgG Reactive (Nonreactive); Syphilis Antibodies Non-reactive
== END | disposition home or self-care (01) ==
LOC: PAVLAB 13:27
PROVIDERS: PCP Nurse Practitioner Family; Referring Provider Obstetrics & Gynecology; Visit Provider Obstetrics & Gynecology
DX: O09.299 Supervision of pregnancy with other poor reproductive or obstetric history, unspecified trimester (principal); O99.210 Obesity complicating pregnancy, unspecified trimester; Z3A.00 Weeks of gestation of pregnancy not specified
CPT/HCPCS: 36415; 80053; 82950; 85025; 86703; 86762; 86780; 86803; 86850; 86900; 86901; 87340

== ENCOUNTER → 2023-03-23 | Outpatient (CLI) | payer MEDICAID, SELFPAY ==
[2023-03-26 22:06] LABS: Chlamydia By Nucleic Acid AMP Negative (Negative); Gonococcus By Nucleic Acid AMP Negative (Negative)
== END | disposition home or self-care (01) ==
PROVIDERS: PCP Nurse Practitioner Family; Referring Provider Obstetrics & Gynecology; Visit Provider Obstetrics & Gynecology
DX: O98.819 Other maternal infectious and parasitic diseases complicating pregnancy, unspecified trimester (principal); A74.9 Chlamydial infection, unspecified; Z3A.00 Weeks of gestation of pregnancy not specified
CPT/HCPCS: 87491; 87591

== ENCOUNTER → 2023-04-12 | Outpatient (CLI) | payer SELFPAY ==
--- NOTE | 2023-04-12 13:39 | US_ITS ---
STUDY: SECOND AND THIRD TRIMESTER OBSTETRICAL ULTRASOUND REASON FOR EXAM: Female, 22 years old Anatomy Scan LMP: 11/23/2022. TECHNIQUE: Transabdominal TECHNICAL QUALITY: Adequate. PRIOR ULTRASOUND: 01/25/2023. FINDINGS: There is a single intrauterine fetus. The fetus is in a cephalic presentation. There is demonstrated cardiac activity with a heart rate of 150 bpm. There is a normal amniotic fluid volume. The largest amniotic fluid pocket measures 4.9 cm. The placenta is anterior in location and is not low lying. There are Grade 0 placental changes. The cervix measures 3.5 cm in length. The cervix is closed. The adnexal regions are not visualized. BIOMETRY: BPD: 4.79 cm: 20 weeks, 3 days HC: 17.51 cm: 20 weeks, 4 days AC: 14.88 cm: 20 weeks, 1 days FL: 3.3 cm: 20 weeks, 2 days CI: 77.82 FL/BPD: 69.21 FL/HC: 18.82 FL/AC: 22.16 HC/AC: 1.18 age by current US: 20 weeks, 0 days. ANNA MARIE by current US: 08/30/2023. Estimated weight: 342 grams, +/- 51 grams, 60 %. ANNA MARIE by prior US: 09/02/2023. Age by LMP: 20 weeks, 0 days. ANNA MARIE by LMP: 08/30/2023. ANATOMY: Gender: Male Cranium: Normal lateral ventricles. Normal choroid plexus. Normal cerebellum. Normal cisterna magna. Normal face, nose and lips. Chest: Normal 4-chamber heart. Abdomen/Pelvis: Normal diaphragm. Normal stomach. Normal abdominal wall. Normal cord insertion. Normal 3 vessel cord. Normal kidneys. Normal bladder. Spine: Suboptimally seen spine with some of the axial plane images otherwise unremarkable spine with no gross dysraphism seen. Extremities: Normal visualized bilateral upper extremities. Normal visualized bilateral lower extremities. US/OB Anatomy w/ Transvaginal IMPRESSION: Single intrauterine with ultrasound age of 20 weeks and 0 days and estimated date of delivery of 08/30/2023. Vertex presentation. Anterior placenta with no previa. Normal amniotic fluid. Normal cardiac activity. Limited anatomy with no gross anomaly. Electronically Signed: Ernestina Chavez MD at 22:58 EDT ,
== END | disposition home or self-care (01) ==
PROVIDERS: PCP Nurse Practitioner Family; Referring Provider Obstetrics & Gynecology; Visit Provider Obstetrics & Gynecology
DX: O09.90 Supervision of high risk pregnancy, unspecified, unspecified trimester (principal); Z3A.00 Weeks of gestation of pregnancy not specified
CPT/HCPCS: 76805; 76817

== ENCOUNTER 2023-06-14 13:42 | Outpatient (CLI) | payer MEDICAID, SELFPAY ==
--- NOTE | 2023-06-14 13:43 | US_ITS ---
STUDY: RENAL ULTRASOUND - COMPLETE REASON FOR EXAM: Female, 22 years old. Back pain/flank pain. Patient is 28 weeks . TECHNIQUE: Ultrasound evaluation of the kidneys was performed with real-time and static soler-scale imaging. COMPARISON: 07/06/2020. FINDINGS: RIGHT KIDNEY: Normal location of the right kidney, which is normal in size. The right kidney measures 12.5 x 5.3 x 6.0 cm. There is a normal cortex of the right kidney. The renal cortex measures 1.4 cm. There is no right renal mass or cyst. There are no right renal calculi. There is no right hydronephrosis. DISTAL RIGHT URETER: There is non-visualization of the distal right ureter. There is no demonstrated right ureterovesical junction calculus. There is a visualized right ureteral jet. LEFT KIDNEY: Normal location of the left kidney, which is normal in size. The left kidney measures 13.1 x 4.7 x 5.5 cm. There is a normal cortex of the left kidney. The renal cortex measures 1.9 cm. There is no left renal mass or cyst. There are no left renal calculi. There is no left hydronephrosis. DISTAL LEFT URETER: There is non-visualization of the distal left ureter. There is no demonstrated left ureterovesical junction calculus. There is a visualized left ureteral jet. BLADDER: The distended urinary bladder has a volume of 20.96 ml. No post void urinary bladder was obtained. There is a normal 2.4 mm wall thickness of the distended urinary bladder. There is no demonstrated mass within the urinary bladder. There are no demonstrated bladder calculi. US/Kidney and Bladder IMPRESSION: 1. Normal ultrasound of the kidneys and urinary bladder. 2. Interval improvement of right hydronephrosis when compared to 07/06/2020. Electronically Signed: Berny Purdy MD at 16:38 EST ,
--- OUTSIDE RECORDS SUMMARY | 2023-06-14 14:12 | XMS RPT_ITS | CCD ---
Author Name Unknown Address [address] [place] [address] Organization [facility] Care Team Providers Care [employer] Name Role Phone Sukumar Joya Unavailable Unavailable *SELF, REFERRED Unavailable Unavailable Sukumar Joya Unavailable Unavailable CAROLYNE CURRY Unavailable Unavailable Michelle Roberts Unavailable Unavailable Maribel Mccabe Unavailable Unavailable BIRD RUIZ CNP Consulting Unavailable BIRD RUIZ CNP Attending Unavailable BIRD RUIZ CNP Admitting Unavailable BIRD RUIZ CNP Primary Care Unavailable PROVIDER, UNKNOWN Consulting Unavailable PROVIDER, UNKNOWN Consulting Unavailable TRISTA SAMS-C Admitting Unavaila ble SAMSTRISTA BRIGGS HYPO DIPPER-C Primary Care Unavaila tera SAMSTRISTA BRIGGS-C Attending Unavaila BIRD Barros CNP Consulting Unavailable PROVIDER, UNKNOWN Consulting Unavailable PROVIDER, UNKNOWN Consulting Unavailable BIRD RUIZ CNP Consulting Unavailable BIRD RUIZ CNP Attending Unavailable BIRD RUIZ CNP Admitting Unavailable BIRD RUIZ CNP Primary Care Unavailable PROVIDER, UNKNOWN Consulting Unavailable PROVIDER, UNKNOWN Consulting Unavailable BIRD RUIZ CNP Attending Unavailable BIRD RUIZ CNP Admitting Unavailable BIRD RUIZ CNP Primary Care Unavailable BIRD RUIZ CNP Consulting Unavailable PROVIDER, UNKNOWN Consulting Unavailable PROVIDER, UNKNOWN Consulting Unavailable Problems Active Problems Problem Classification Problem Date Documented Da te Episodic/Chronic Malaise and fatigue (1 source) Other fatigue; Translations: [Other fatigue] Onset: 10-16-2022 Episodic Mood disorders (1 source) Major depressive disorder, single episode, unspecified; Translations: [Major depressive disorder, single episode, unspecified] Onset: 10-16-2022 Chronic Other screening for suspected conditions (not mental disorders or infectious disease) (1 source) Encounter for screening for lipoid disorders; Translations: [Encounter for screening for lipoid disorders] Onset: 10-16-2022 Episodic Substance-related disorders (1 source) Other psychoactive substance abuse, in remission; Translations: [Other psychoactive substance abuse, in remission] Onset: 10-16-2022 Chronic Unclassified (1 source) Nausea / R11.0(ICD-10) Onset: 07-31-2017 Unclassified (1 source) Unspecified abdominal pain / R10.9(ICD-10) Onset: 07-31-2017 Unclassified (1 source) Obesity, unspecified / E66.9(ICD-10) Onset: 07-31-2017 Unclassified (2 sources) Unknown / UNK(Unknown) Onset: 04-02-2017 Past or Other Problems Problem Classification Problem Date Documented Da te Episodic/Chronic Unclassified (1 source) PRE EMP UDS [place] Onset: 06-05-2017 Unclassified (1 source) Z79.899 Onset: 04-02-2017 Results Test Name Value Interpretation Reference Range Facil ity Encounters Encounter Date Encounter Type Care Provider Facility Start: 12-07-2022 End: 12-07-2022 ambulatory BIRD [facility] Start: 11-09-2022 End: 11-09-2022 ambulatory TRISTA VALLE [facility] Start: 10-16-2022 End: 10-16-2022 ambulatory BIRD [facility] Start: 07-18-2022 End: 07-18-2022 ambulatory BIRD [facility] Start: 08-14-2017 Ambulatory Ali Alban Mahnaz Facil ity:[facility] Start: 07-31-2017 Ambulatory Ali Alban Mahnaz Facil ity:[facility] Start: 06-05-2017 Ambulatory CAROLYNE Lowe ty:[facility] Start: 04-02-2017 Ambulatory Michelle Baez y:[facility] Payers Date Payer Category Payer Unknown [id number] 2000 Unknown [id number] 2.16.84 [id number] 2000 Unknown [id number] 2.16.84 [id number] 2000 Unknown [id number] 2.16.84 [id number] 2000 Unknown [id number] 2.16.84 [id number] Unknown [id number] Unknown M Worker's Compensation [id number] Summary Purpose Family History No Family History Records FoundNo Family History Records FoundNo Family History Records FoundNo Family History Records FoundNo Family History Records FoundNo Family History Records Found Advance Directives No Advanced Directives Records FoundNo Advanced Directives Records FoundNo Advanced Directives Records FoundNo Advanced Directives Records FoundNo Advanced Directives Records FoundNo Advanced Directives Records Found Additional Source Comments INFORMATION SOURCE (unrecogn ized section and content) DATE CREATED AUTHOR AUTHOR'S ORGANIZ ATION 12/25/2017 [facility] DATE CREATED AUTHOR AUTHOR'S ORGANIZ ATION 12/26/2017 [facility] DATE CREATED AUTHOR AUTHOR'S ORGANIZ ATION 11/28/2018 [facility] DATE CREATED AUTHOR AUTHOR'S ORGANIZ ATION 12/12/2022 [facility] DATE CREATED AUTHOR AUTHOR'S ORGANIZ ATION 05/12/2023 [facility] ([place]) FOR RECORDS PERTAINING TO PATIENTS WHO ARE OR HAVE BEEN ENROLLED IN A CHEMICAL DEPENDENCY/SUBSTANCEABUSE PROGRAM, SOME INFORMATION MAY BE OMITTED. This clinical summary was aggregated from multiple sources. Caution should be exercised in using it in the provision of clinical care. This summary normalizes information from multiple sources, and as a consequence, information in this document may materially change the coding, format and clinical context of patient data. In addition, data may be omitted in some cases. CLINICAL DECISIONS SHOULD BE BASED ON THE PRIMARY CLINICAL RECORDS. [facility]. provides no warranty or guarantee of the accuracy or completeness of information in this document.
[2023-06-14 14:25] LABS: Absolute Lymphocyte Count 1.82 X10^3/uL (0.83-4.51); Absolute Neutrophil Count 9.1 X10^3/uL (2.0-7.7); Basophil# 0.05 X10^3/uL; Basophil% 0.4 % (0-1); Eosinophil# 0.08 X10^3/uL; Eosinophils% 0.7 % (0-5); Hematocrit 35.3 % (37-47); Hemoglobin 11.2 g/dL (12.0-15.0); Lymphocyte # 1.82 X10^3/ul (0.83-4.51); Lymphocyte % 15.6 % (19-41); Mean Corp Hgb Conc 31.7 g/dL (32-36); Mean Corpuscular Hgb 29.6 pg (27.0-32.0); Mean Corpuscular Volume 93.1 fL (81-99); Monocyte# 0.45 X10^3/uL; Monocyte% 3.9 % (0-10); NRBC Flagged by Analyzer 0 % (0-5); Neutrophil # 9.07 X10^3/uL (2.7-7.7); Neutrophil % 77.7 % (47-70); Platelet Count 315 K/mm3 (150-450); RBC Distribution Width SD 47.8 fl (35.1-43.9); Red Blood Count 3.79 M/mm3 (4.2-5.4); White Blood Count 11.7 K/mm3 (4.4-11.0)
[2023-06-14 15:16] LABS: HIV - WCH Non-Reactive (Nonreactive); Syphilis Antibodies Non-reactive
== END 2023-06-14 23:59 | disposition home or self-care (01) ==
PROVIDERS: PCP Nurse Practitioner Family; Referring Provider Nurse Practitioner Women's Health; Visit Provider Nurse Practitioner Women's Health
DX: O99.891 Other specified diseases and conditions complicating pregnancy (principal); M54.9 Dorsalgia, unspecified; Z3A.00 Weeks of gestation of pregnancy not specified; O09.90 Supervision of high risk pregnancy, unspecified, unspecified trimester
CPT/HCPCS: 36415; 76770; 85025; 86703; 86780

== ENCOUNTER → 2023-06-20 | Outpatient (CLI) | payer MEDICAID, SELFPAY ==
--- NOTE | 2023-06-20 11:19 | US_ITS ---
STUDY: ABDOMINAL ULTRASOUND - RIGHT UPPER QUADRANT REASON FOR VISIT: Female, 22 years old RUQ pain TECHNIQUE: Ultrasound evaluation of the right upper quadrant was performed with real-time and static mcclellan-scale imaging. TECHNICAL QUALITY: Adequate. COMPARISON: None. FINDINGS: Liver: The liver measures 16.3 cm. There is mild increased echogenicity consistent with mild degree of fatty infiltration. The bile ducts are within normal limits. There is hepatic color flow. The direction of portal flow is hepatopetal. There is no demonstrated mass lesion. Gallbladder: Normal distended gallbladder. The gallbladder wall measures 2.3 mm. There is a negative sonographic Alvarado''s sign. There is no pericholecystic fluid. There are no gallstones. Common Bile Duct (C.B.D.): The common bile duct measures 4.0 mm. Pancreas: Normal size of the head, body of the pancreas. The tail portion is obscured due to overlying bowel gas. There is normal echogenicity of the pancreas. There is no demonstrated pancreatic mass or cyst. Right Kidney: Normal size of the right kidney. The right kidney measures 12.3 cm x 6.1 cm x 4.9 cm. Normal renal cortex. The right cortex measures 1.6 cm. There is no demonstrated renal mass or cyst. There is no right hydronephrosis. US/Gallbladder IMPRESSION: Mild degree of fatty infiltration of the liver. Electronically Signed: Eduardo Eugene MD at 14:57 EST ,
== END | disposition home or self-care (01) ==
LOC: US 11:17
PROVIDERS: PCP Nurse Practitioner Family; Referring Provider Nurse Practitioner Women's Health; Visit Provider Nurse Practitioner Women's Health
DX: O99.891 Other specified diseases and conditions complicating pregnancy (principal); M54.9 Dorsalgia, unspecified; Z3A.00 Weeks of gestation of pregnancy not specified
CPT/HCPCS: 76705

== ENCOUNTER → 2023-07-06 | Outpatient (CLI) | payer MEDICAID, SELFPAY ==
--- NOTE | 2023-07-06 14:12 | US_ITS ---
STUDY: OBSTETRICAL ULTRASOUND - BIOPHYSICAL PROFILE REASON FOR EXAM: Female, 22 years old Gestational diabetes LMP: Unknown. PRIOR ULTRASOUND: April 12, 2023 TECHNIQUE: Transabdominal TECHNICAL QUALITY: Adequate. FINDINGS: There is a single intrauterine fetus. The fetus is in a cephalic presentation. There is demonstrated cardiac activity with a heart rate of 148 bpm. There is a normal amniotic fluid volume. The largest amniotic fluid pocket measures 5.9 cm. The amniotic fluid index (LUCERO) is 12.8 cm. The placenta is anterior in location and is not low lying. There are Grade 1 placental changes. age by current US: 33 weeks, 3 days. ANNA MARIE by current US: August 21, 2023. BIOPHYSICAL PROFILE: Breathing Movements (FBM): 2 Gross Body Movements (GBM): 2 Tone (FT): 2 Amniotic Fluid Volume (AFV): 2 TOTAL SCORE: 8 / 8 US/Biophysical Prof W/O Non Stres IMPRESSION: Normal biophysical profile of 02/06. Electronically Signed: Chris Sullivan MD at 15:30 EST ,
--- NOTE | 2023-07-06 14:12 | US_ITS ---
STUDY: SECOND AND THIRD TRIMESTER OBSTETRICAL ULTRASOUND - LIMITED REASON FOR EXAM: Female, 22 years old . Gestational diabetes, well being LMP: Unknown. PRIOR ULTRASOUND: April 12, 2023 TECHNIQUE: Transabdominal TECHNICAL QUALITY: Adequate. FINDINGS: There is a single intrauterine fetus. The fetus is in a cephalic presentation. There is demonstrated cardiac activity with a heart rate of 148 bpm. There is a normal amniotic fluid volume. The largest amniotic fluid pocket measures 5.9 cm. The amniotic fluid index (LUCERO) is 12.8 cm. The placenta is anterior in location and is not low lying. There are Grade 1 placental changes. BIOMETRY: BPD: 8.5 cm: 34 weeks, 1 days HC: 30.9 cm: 34 weeks, 3 days AC: 9.0 cm: 33 weeks, 0 days FL: 6.2 cm: 32 weeks, 2 days age by current US: 33 weeks, 3 days. ANNA MARIE by current US: August 21, 2023. Estimated weight: 2117 grams, +/- 318 grams US/OB Limited With Biometrics IMPRESSION: Single intrauterine gestation 33 weeks 3 days with estimated due date August 21, 2023. Estimated weight 2117 g. Electronically Signed: Chris Sullivan MD at 15:32 EST ,
--- OUTSIDE RECORDS SUMMARY | 2023-07-06 14:30 | XMS RPT_ITS | CCD ---
Author Name Unknown Address [address] [place] [address] Organization [facility] Care Team Providers Care Buttermilk Drier Operator Name Role Phone Sukumar Joya Unavailable Unavailable *SELF, REFERRED Unavailable Unavailable Sukumar Joya Unavailable Unavailable CAROLYNE CURRY Unavailable Unavailable Michelle Roberts Unavailable Unavailable Maribel Mccabe Unavailable Unavailable BIRD RUIZ CNP Consulting Unavailable BIRD RUIZ CNP Attending Unavailable BIRD RUIZ CNP Admitting Unavailable BIRD RUIZ CNP Primary Care Unavailable PROVIDER, UNKNOWN Consulting Unavailable PROVIDER, UNKNOWN Consulting Unavailable TRISTA SAMS-C Admitting Unavaila ble SAMSTRISTA BRIGGS OPTICAL FABRICATOR-C Primary Care Unavaila tera SAMSTRISTA BRIGGS-C Attending [...] Facility Start: 12-07-2022 End: 12-07-2022 ambulatory [facility] Start: 11-09-2022 End: 11-09-2022 ambulatory TRISTA VALLE [facility] Start: 10-16-2022 End: 10-16-2022 ambulatory [facility] Start: 07-18-2022 End: 07-18-2022 ambulatory [facility] Start: 08-14-2017 Ambulatory Ali Alban Mahnaz Facil ity:[facility] Start: 07-31-2017 Ambulatory Ali Alban Mahnaz Facil ity:[facility] Start: 06-05-2017 Ambulatory CAROLYNE Lowe ty:UNI Start: 04-02-2017 Ambulatory Michelle Baez y:[facility] Payers Date Payer Category Payer Unknown [id number] 2000 Unknown [id number] 2.16.84 [id number] 2000 Unknown [id number] 2.16.84 [id number] 2000 Unknown [id number] 2.16.84 [id number] 2000 Unknown [id number] 2.16.84 [id number] Unknown [id number] Unknown M Worker's Compensation [id number] Summary Purpose Family History No Family [...] DATE CREATED AUTHOR AUTHOR'S ORGANIZ ATION 12/25/2017 [facility] DATE CREATED AUTHOR AUTHOR'S ORGANIZ ATION 12/26/2017 [facility] DATE CREATED AUTHOR AUTHOR'S ORGANIZ ATION 11/28/2018 [facility] DATE CREATED AUTHOR AUTHOR'S ORGANIZ ATION 12/12/2022 [facility] DATE CREATED AUTHOR AUTHOR'S ORGANIZ ATION 05/12/2023 [facility] FOR RECORDS PERTAINING TO PATIENTS WHO ARE [...] BE BASED ON THE PRIMARY CLINICAL RECORDS. [facility] [email or web address] [facility]. provides no warranty or guarantee of the accuracy or completeness of information in this document.
== END | disposition home or self-care (01) ==
PROVIDERS: PCP Nurse Practitioner Family; Referring Provider Nurse Practitioner Women's Health; Visit Provider Nurse Practitioner Women's Health
DX: O24.419 Gestational diabetes mellitus in pregnancy, unspecified control (principal); Z3A.00 Weeks of gestation of pregnancy not specified
CPT/HCPCS: 76816; 76819

== ENCOUNTER → 2023-07-24 | Outpatient (CLI) | payer MEDICAID, SELFPAY ==
--- OUTSIDE RECORDS SUMMARY | 2023-07-24 16:40 | XMS RPT_ITS | CCD ---
Author Name Unknown Address [address] [place] [address] Organization [facility] Care Team Providers Care Neon Sign Servicer Name Role Phone Sukumar Joya Unavailable Unavailable *SELF, REFERRED Unavailable Unavailable Sukumar Joya Unavailable Unavailable CAROLYNE CURRY Unavailable Unavailable Michelle Roberts Unavailable Unavailable Maribel Mccabe Unavailable Unavailable BIRD RUIZ CNP Consulting Unavailable BIRD RUIZ CNP Attending Unavailable BIRD RUIZ CNP Admitting Unavailable BIRD RUIZ CNP Primary Care Unavailable PROVIDER, UNKNOWN Consulting Unavailable PROVIDER, UNKNOWN Consulting Unavailable TRISTA SAMS-C Admitting Unavaila ble SAMSTRISTA BRIGGS RESIDENTIAL APPRAISER-C Primary Care Unavaila tera SAMSTRISTA BRIGGS-C Attending [...] Facility Start: 12-07-2022 End: 12-07-2022 ambulatory [facility] Start: 11-09-2022 End: 11-09-2022 ambulatory TRISTA VALLE [facility] Start: 10-16-2022 End: 10-16-2022 ambulatory [facility] Start: 07-18-2022 End: 07-18-2022 ambulatory [facility] Start: 08-14-2017 Ambulatory Ali Alban Mahnaz Facil ity:[facility] Start: 07-31-2017 Ambulatory Ali Alban Mahnaz Facil ity:[facility] Start: 06-05-2017 Ambulatory CAROLYNE Lowe ty:UNI Start: 04-02-2017 Ambulatory Michelle Baez y:[facility] Payers Date Payer Category Payer Unknown [id number] 2000 Unknown [id number] 2.16.84 [id number] 2000 Unknown [id number] 2.16.84 [id number] 2000 Unknown [id number] 2.16.84 [id number] 2000 Unknown [id number] 2.16.84 [id number] Unknown [id number] Unknown M Worker's Compensation [id number] Summary Purpose Family History No Family [...] CREATED AUTHOR AUTHOR'S ORGANIZ ATION 12/25/2017 [facility] DATE CREATED AUTHOR AUTHOR'S ORGANIZ ATION 12/26/2017 [facility] DATE CREATED AUTHOR AUTHOR'S ORGANIZ ATION 11/28/2018 [facility] DATE CREATED AUTHOR AUTHOR'S ORGANIZ ATION 12/12/2022 [facility] DATE CREATED AUTHOR AUTHOR'S ORGANIZ ATION 05/12/[address] [facility] FOR RECORDS PERTAINING TO PATIENTS WHO ARE [...] BE BASED ON THE PRIMARY CLINICAL RECORDS. [facility] [employer] [facility]. provides no warranty or guarantee of the accuracy or completeness of information in this document.
== END | disposition home or self-care (01) ==
LOC: LABSPEC 16:30
PROVIDERS: PCP Nurse Practitioner Family; Referring Provider Advanced Practice Midwife; Visit Provider Advanced Practice Midwife
DX: R35.0 Frequency of micturition (principal)
CPT/HCPCS: 87086

== ENCOUNTER 2023-07-25 15:00 | Outpatient (CLI) | payer MEDICAID, SELFPAY ==
[2023-07-25] VITALS (10 sets, daily range): BP systolic 119–145; BP diastolic 65–74; PULSE 85–102; TEMP 36.7; O2SAT 98; BMI 46.0
[2023-07-25 16:07] LABS: ROM Internal Control Test YES-OK TO RESULT pt. (Internal QC); ROM Patient Test Negative (Negative)
--- NOTE | 2023-07-25 16:59 | OB.TRI.HP_ITS ---
HPI - General General Date of Admission: 07/25/23 HPI Narrative AZAEL SULTANA, is a 22 y/o @ 34 weeks 6 days who presents to L&D to rule out rupture of membranes. She denies vaginal bleeding or decreased movement. Maternal Data Information ANNA MARIE Calculator Estimated Delivery Date Method Current WG Current Estimate 08/30/23 LMP (Certain) 34w 6d Other Estimates 09/02/23 Ultrasound #1 34w 3d PFSH PFSH Medical History Adopted Anxiety Complete Gestational diabetes Marijuana use Pre-eclampsia Home Medications multivit-min no.71-iron fum 28 mg-folate no.1 1 mg-dha 300 mg capsule (PNV- [place]) cap PO 01/11/23 [History Last Taken 07/24/23] aspirin 81 mg tablet,delayed release 81 mg PO DAILY #90 tabs 01/25/23 [Rx Last Taken Unknown] blood sugar diagnostic (Blood Glucose Test strips) #120 ea 02/08/23 [Rx Last Taken Unknown] 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 meter #1 ea 02/08/23 [Rx Last Taken Unknown] lancets #200 ea 02/08/23 [Rx Last Taken Unknown] BD Ultra-Fine Shelley Pen Needle 32 gauge x 5/32 (pen needle, diabetic) #150 ea 02/13/23 [Rx Last Taken Unknown] 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 sensor (FreeStyle Dot 3 Sensor device) #2 ea 02/13/23 [Rx Last Taken Unknown] insulin degludec 200 unit/mL (3 mL) subcutaneous pen (Tresiba FlexTouch U-200 insulin) 36 unit subcut DAILY 06/06/23 [History Last Taken Unknown] Allergy/AdvReac Type Severity Reaction Status Date / Time No Known Allergies Allergy Verified 07/24/23 14:03 Family History Mother Diabetes Grandfather Diabetes Surgical History History of dental surgery Social History adopted: Yes (limited family medical history known) household members: family number of children: 1 current occupational status: employed current occupation: [employer] current occupational exposures/hazards: No pets and animals: Yes (Not managing litterbox) pets and animals: cat(s) and dog(s) history of recent travel: No sexually active: Yes Smoking Status: Former smoker quit date: 10/30/22 quit status: quit date established counseling given: counseling >3 minutes alcohol intake: former details: social drinking prior to substance use type: marijuana well-balanced diet: daily or most days caffeine: Yes Type: carbonated beverages Number of servings: 1 eating out: 1-3 times/week during the past year weight has: remained stable what type of physical activity do you participate in: walking frequency: 1-2 times per week duration: 30-45 minutes/day matt/uatsdin: None seatbelt use: always do you feel safe at home: Yes additional social history: Patient works at [employer]- Works at [employer] History 3 Elective abortions Hx Para 1 Spontaneous abortions 1 Hx # Term Pregnancies 1 Ectopic pregnancies Hx # Pregnancies Multiple births # of living children 1 Past Pregnancies Del. Date Name GA/Weeks Outcome Route Bth Weight Gen Labor Lgth Anesthesia Del Locatn Provider FOB 07/20/20 Andre 37 live - full term vacuum Male [facility] Marcanthony Delivery Date: 07/20/20 Last Updated by: Angy Ayon IOL pre-eclampsia VAVD triple I Visit Details Expected Delivery Route/Plan Labor Preferences- CB/BF classes: no labor support person: Andre (goes by Reuben) labor intervention preferences: [] pain management options preferred: epidural cut cord/dad catch: cord : maybe PP control planned: discussed discussed possible routes of delivery and associated risks: [] special requests: [] Plans Covid status: discussed Flu vaccine: discussed Tdap vaccine: done Rhogam: na LARC form signed: done Problem list reviewed and updated with the most current plan of care details and appropriate orders placed. Relevant counseling for the gestational age provided. Continue routine care and follow up unless otherwise noted in visit notes/problem list details OB Flowsheet Initial Weight: 240 lb Date -?-?-?-?-?-?-?-?-?-?-?-?- EGA Weight BP Urine Prot -?-?-?-?-?-?-?-?-?-?-?-?- Glucose FHR FuHt Pres Dilation -?-?-?-?-?-?-?-?-?-?-?-?- Effaced St Visit Note 01/25/23 -?-?-?-?-?-?-?-?-?-?-?-?- 9w 0d 240 lb 8 oz (+8 oz) 129/80 -?-?-?-?-?-?-?-?-?-?-?-?- -?-?-?-?-?-?-?-?-?-?-?-?- JV- bedside ultr asound shows + FHt and CRL measurs 25.5 mm 9 weeks 3 days. formal scan ordered for better visualization. desires NIPT. starting baby asa, pih baseline labs, phenergan for nausea. 02/23/23 -?-?-?-?-?-?-?-?-?-?-?-?- 13w 1d 243 lb (+3 lb) 112/80 Negative -?-?-?-?-?-?-?-?-?-?-?-?- 500 g/dL 159 -?-?-?-?-?-?-?-?-?-?-?-?- KW- no vb/crampi ng. Discussed AFP. Formal US ordered. Reports good BS, sees Dr Vaughan. on 22 units of insulin in the evening. 03/23/23 -?-?-?-?-?-?-?-?-?-?-?-?- 17w 1d 244 lb (+4 lb) 110/69 Negative -?-?-?-?-?-?-?-?-?-?-?-?- Negative 150 -?-?-?-?-?-?-?-?-?-?-?-?- SM no vb lof aircraft refueler mping 05/18/23 -?-?-?-?-?-?-?-?-?-?-?-?- 25w 1d 247 lb 7 oz (+7 lb 7 oz) 130/83 Negative -?-?-?-?-?-?-?-?-?-?-?-?- Negative 145 -?-?-?-?-?-?-?-?-?-?-?-?- KW- no vb/lof/ct x. good fm. 36 units of insulin at HS. BS controlled. discussed NSTs at 32 weeks. Requesting waiting to repeat urine tox screen until a later appt due to testing positive last week for work. 06/06/23 -?-?-?-?-?-?-?-?-?-?-?-?- 27w 6d 258 lb (+18 lb) 116/82 Negative -?-?-?-?-?-?-?-?-?-?-?-?- Negative 150 28 -?-?-?-?-?-?-?-?-?-?-?-?- MH-No VB, LOF. G ood FM. States insulin same dosage, reports to Dr Vuaghan. Audra, tdap, 28 wk labs 06/20/23 -?-?-?-?-?-?-?-?-?-?-?-?- 29w 6d 257 lb 5 oz (+17 lb 5 oz) 122/82 Negative -?-?-?-?-?-?-?-?-?-?-?-?- Negative -?-?-?-?-?-?-?-?-?-?-?-?- -nurse visit f or vision issues. No headache. Normal BP and urine. Pain mid to upper back-GB US today 06/22/23 -?-?-?-?-?-?-?-?-?-?-?-?- 30w 1d 258 lb 4 oz (+18 lb 4 oz) 91/53 Negative -?-?-?-?-?-?-?-?-?-?-?-?- Negative 145 34 -?-?-?-?-?-?-?-?-?-?-?-?- kw-no vb/lof/ctx . good fm. blood sugars in the 50s throughout day. pt asymptomatic. encouraged to contact Dr Vaughan with numbers to see if insulin needs adjusted. BP low today and reports not drinking much fluid. encouraged to hydrate. overall doing well. 07/06/23 -?-?-?-?-?-?-?-?-?-?-?-?- 32w 1d 268 lb (+28 lb) 120/76 Negative -?-?-?-?-?-?-?-?-?-?-?-?- Negative 140 150 32 -?-?-?-?-?-?-?-?-?-?-?-?- SM- unable to ke ep on monitor for nst due to body habitus, sent for bpp. no vb lof good fm n oregular ctx BS controlled 07/13/23 -?-?-?-?-?-?-?-?-?-?-?-?- 33w 1d 259 lb 6 oz (+19 lb 6 oz) 124/80 -?-?-?-?-?-?-?-?-?-?-?-?- 140 -?-?-?-?-?-?-?-?-?-?-?-?- JV- nst reactivc e. normal growth last week. has rpt at 36 weeks. glucose levels normal but had to go up a little on her insulin. 07/17/23 -?-?-?-?-?-?-?-?-?-?-?-?- 33w 5d 262 lb (+22 lb) 122/77 Negative -?-?-?-?-?-?-?-?-?-?-?-?- Negative 140 -?-?-?-?-?-?-?-?-?-?-?-?- NST only reactiv e 07/24/23 -?-?-?-?-?-?-?-?-?-?-?-?- 34w 5d 262 lb 2 oz (+22 lb 2 oz) 120/81 -?-?-?-?-?-?-?-?-?-?-?-?- 140 35 -?-?-?-?-?-?-?-?-?-?-?-?- KW- no vb/crampi ng. good fm. reactive NST. Increase in insulin again. good fm. having increase urinary frequency. urine culture sent. ROS Constitutional Constitutional: Reports systems reviewed and no addt'l complaints, except as documented Gastrointestinal Gastrointestinal: Denies bloating, constipation, cramping, diarrhea, nausea or vomiting Genitourinary Genitourinary: Reports other Details: Denies vaginal odor, vaginal bleeding, or vaginal discharge ; Denies difficulty urinating or flank pain NST FHR Rate Baby A Baseline: 140 Variability:: Moderate Accelerations:: 15 x 15 Decelerations:: None NST Reactive:: Yes FHR Category:: Category I Assessment & Plan (1) Back pain affecting : QUALIFIERS: Trimester: second trimester Qualified Code(s): O99.891 - Other specified diseases and conditions complicating ; M54.9 - Dorsalgia, unspecified (2) Gestational diabetes: QUALIFIERS: Gestational diabetes mellitus control: insulin- controlled Trimester: first trimester Qualified Code(s): O24.414 - Gestational diabetes mellitus in , insulin controlled COMMENT: on insulin started at 11 weeks. 40 units insulin NSTs starting 32 weeks twice weekly (3) Chlamydia infection affecting : QUALIFIERS: Trimester: third trimester Qualified Code(s): O98.813 - Other maternal infectious and parasitic diseases complicating , third trimester; A74.9 - Chlamydial infection, unspecified COMMENT: Treated 01/29/23. 02/07/23:reexposure and retreated. 03/23/23- neg (4) History of shoulder dystocia in prior , currently : COMMENT: check growth US at end of . 07/06/23 EFW 66% (5) Obesity affecting : QUALIFIERS: Trimester: third trimester Obesity type affecting : unspecified obesity Qualified Code(s): O99.213 - Obesity complicating , third trimester COMMENT: 1 tm gct abnl, encouraged healthy weight gain (6) Former cigarette smoker: COMMENT: Quit in October 2022. (7) H/O pre-eclampsia in prior , currently : COMMENT: baseline PIH labs at start of preg- prot: cr normal. (8) H/O depression, currently : (9) Marijuana use: COMMENT: encouraged cessation, plan random tox screen. Positive 12/06/19, 01/30/20, 03/24/20-01/24/23 Pt has medical marijuana card. Pt is using marijuana vape 2-3 times per day and states trying to quit. Counseling provided. (10) Supervision of high risk , antepartum: COMMENT: PRR , ANNA MARIE 08/30/23, boy, PC Andre, Andre (11) : QUALIFIERS: Weeks of gestation: 34 weeks Qualified Code(s): Z3A.34 - 34 weeks gestation of COMMENT: NIPT low risk, declined carrier testing (12) False labor before 37 completed weeks of gestation in third trimester: COMMENT: ROM plus negative on 07/25/23 PLAN: Plan rom plus negative. cx 1 cm dilated per nurse ok to dc to home with labor precautions. keep next scheduled appt in the office. Charges/Coding Multi Select Codes Urinary/Genital Urinary/Genital CPT Codes: 69770-67 non-stress test Interp
== END 2023-07-25 16:35 | disposition home or self-care (01) ==
LOC: WPOUT 15:05 → WP 15:05
PROVIDERS: PCP Nurse Practitioner Family; Referring Provider Obstetrics & Gynecology; Visit Provider Obstetrics & Gynecology
DX: O47.03 False labor before 37 completed weeks of gestation, third trimester (principal); O24.414 Gestational diabetes mellitus in pregnancy, insulin controlled; O98.813 Other maternal infectious and parasitic diseases complicating pregnancy, third trimester; A74.9 Chlamydial infection, unspecified; O99.213 Obesity complicating pregnancy, third trimester; Z87.891 Personal history of nicotine dependence; Z79.899 Other long term (current) drug therapy; Z3A.34 34 weeks gestation of pregnancy
CPT/HCPCS: 59025; 59050; 84112; 99221; G0378

== ENCOUNTER → 2023-08-03 | Outpatient (CLI) | payer MEDICAID, SELFPAY ==
--- NOTE | 2023-08-03 12:33 | US_ITS ---
STUDY: SECOND AND THIRD TRIMESTER OBSTETRICAL ULTRASOUND - LIMITED REASON FOR EXAM: Female, 22 years old well being . Gestational diabetes. LMP: November 23, 2022. PRIOR ULTRASOUND: Comparison is made with prior examination dated January 04, 2024. TECHNIQUE: Transabdominal TECHNICAL QUALITY: Adequate. FINDINGS: There is a single intrauterine fetus. The fetus is in a cephalic presentation. There is demonstrated cardiac activity with a heart rate of 148 bpm. There is a normal amniotic fluid volume. The largest amniotic fluid pocket measures 7.7 cm. The amniotic fluid index (LUCERO) is 17.1 cm. The placenta is anterior in location and is not low lying. There are Grade 1 placental changes. The cervical length was not measured due to the head position. BIOMETRY: BPD: 9.32 cm: 37 weeks, 6 days HC: 33.9 cm: 38 weeks, 6 days AC: 32.84 cm: 36 weeks, 5 days FL: 6.87 cm: 35 weeks, 2 days Age by LMP: 36 weeks, 1 days. ANNA MARIE by LMP: August 30, 2023. age by prior US: 37 weeks, 3 days. ANNA MARIE by prior US: August 21, 2023. age by current US: 37 weeks, 3 days. ANNA MARIE by current US: August 21, 2023. Estimated weight: 3008 grams, +/- 451 grams, 67 percentile. US/OB Limited With Biometrics IMPRESSION: Single live uterine gestation with a mean gestational age of 37 weeks and 3 days. The measurements obtained today fall within the normal expected range. Electronically Signed: Eduardo Eugene MD at 15:02 EST ,
--- OUTSIDE RECORDS SUMMARY | 2023-08-03 15:54 | XMS RPT_ITS | CCD ---
Author Name Unknown Address [address] [place] [address] Organization [facility] Care Team Providers Care Automobile [employer] Travel Counselor Name Role Phone Sukumar Joya Unavailable Unavailable *SELF, REFERRED Unavailable Unavailable Sukumar Joya Unavailable Unavailable CAROLYNE CURRY Unavailable Unavailable Michelle Roberts Unavailable Unavailable Maribel Mccabe Unavailable Unavailable BIRD RUIZ CNP Consulting Unavailable BIRD RUIZ CNP Attending Unavailable BIRD RUIZ CNP Admitting Unavailable BIRD RUIZ CNP Primary Care Unavailable PROVIDER, UNKNOWN Consulting Unavailable PROVIDER, UNKNOWN Consulting Unavailable TRISTA SAMS-C Admitting Unavaila ble SAMSTRISTA BRIGGS SAUSAGE STRINGER-C Primary Care Unavaila tera SAMSTRISTA BRIGGS-C Attending [...] Facility Start: 12-07-2022 End: 12-07-2022 ambulatory BIRD [facility] Start: 11-09-2022 End: 11-09-2022 ambulatory TRISTA VALLE [facility] Start: 10-16-2022 End: 10-16-2022 ambulatory [facility] Start: 07-18-2022 End: 07-18-2022 ambulatory [facility] Start: 08-14-2017 Ambulatory Ali Alban Mahnaz Facil ity:[facility] Start: 07-31-2017 Ambulatory Ali Alban Mahnaz Facil ity:[facility] Start: 06-05-2017 Ambulatory CAROLYNE Lowe ty:UNI Start: 04-02-2017 Ambulatory Michelle Baez y:[facility] Payers Date Payer Category Payer Unknown [id number] 2000 Unknown [id number] 2.16.84 [id number] 2000 Unknown [id number] 2.16.84 [id number] 2000 Unknown [id number] 2.16.84 [id number] 2000 Unknown [id number] 2.16.84 [id number] Unknown [id number] Unknown M Worker's Compensation [id number] Summary Purpose Family History No Family [...] AUTHOR AUTHOR'S ORGANIZ ATION 12/25/2017 [facility] DATE CREATED AUTHOR AUTHOR'S ORGANIZ ATION 12/26/2017 [facility] DATE CREATED AUTHOR AUTHOR'S ORGANIZ ATION 11/28/2018 [facility] DATE CREATED AUTHOR AUTHOR'S ORGANIZ ATION 12/12/2022 [facility] DATE CREATED AUTHOR AUTHOR'S ORGANIZ ATION 05/12/2023 [facility] FOR RECORDS PERTAINING TO PATIENTS WHO ARE [...] BE BASED ON THE PRIMARY CLINICAL RECORDS. [facility] [employer] [facility]. provides no warranty or guarantee of the accuracy or completeness of information in this document.
[2023-08-03 18:01] LABS: Group B Strep DNA By PCR Negative (Negative); Internal Control PASS; Probe Check PASS; Specimen Processing Control PASS
== END | disposition home or self-care (01) ==
PROVIDERS: Advanced Practice Midwife; PCP Nurse Practitioner Family; Referring Provider Nurse Practitioner Women's Health; Visit Provider Nurse Practitioner Women's Health
DX: O24.419 Gestational diabetes mellitus in pregnancy, unspecified control (principal); Z3A.00 Weeks of gestation of pregnancy not specified
CPT/HCPCS: 76816; 87081; 87653

== ENCOUNTER → 2023-08-07 | Outpatient (CLI) | payer MEDICAID, SELFPAY ==
--- OUTSIDE RECORDS SUMMARY | 2023-08-07 16:31 | XMS RPT_ITS | CCD ---
Author Name Unknown Address [address] [place] [address] Organization [facility] Care Team Providers Care Rn Wellness Name Role Phone Sukumar Joya Unavailable Unavailable *SELF, REFERRED Unavailable Unavailable Sukumar Joya Unavailable Unavailable CAROLYNE CURRY Unavailable Unavailable Michelle Roberts Unavailable Unavailable Maribel Mccabe Unavailable Unavailable BIRD RUIZ CNP Consulting Unavailable BIRD RUIZ CNP Attending Unavailable BIRD RUIZ CNP Admitting Unavailable BIRD RUIZ CNP Primary Care Unavailable PROVIDER, UNKNOWN Consulting Unavailable PROVIDER, UNKNOWN Consulting Unavailable TRISTA SAMS-C Admitting Unavaila ble SAMSTRISTA BRIGGS MEDICAL CONCIERGE-C Primary Care Unavaila tera SAMSTRISTA BRIGGS-C Attending [...] Facility Start: 12-07-2022 End: 12-07-2022 ambulatory BIRD [facility] Start: 11-09-2022 End: 11-09-2022 ambulatory TRISTA VALLE [facility] Start: 10-16-2022 End: 10-16-2022 ambulatory B[facility] Start: 07-18-2022 End: 07-18-2022 ambulatory BIRD [facility] Start: 08-14-2017 Ambulatory Ali Alban Mahnaz Facil ity:[facility] Start: 07-31-2017 Ambulatory Ali Alban Mahnaz Facil ity:[facility] Start: 06-05-2017 Ambulatory CAROLYNE Lowe ty:UNI Start: 04-02-2017 Ambulatory Michelle Baez y:[facility] Payers Date Payer Category Payer Unknown [id number] 2000 Unknown [id number] 2.16.84 [id number] 2000 Unknown [id number] 2.16.84 [id number] 2000 Unknown [id number] 2.16.84 [id number] 2000 Unknown [id number] 2.16.84 [id number] Unknown [id number] Unknown M Worker's Compensation [id number] Summary Purpose Family History No Family [...] CREATED AUTHOR AUTHOR'S ORGANIZ ATION 12/25/2017 [facility] DATE CREATED AUTHOR AUTHOR'S ORGANIZ ATION 12/26/2017 [facility] DATE CREATED AUTHOR AUTHOR'S ORGANIZ ATION 11/28/2018 [facility] DATE CREATED AUTHOR AUTHOR'S ORGANIZ ATION 12/12/2022 [facility] DATE CREATED AUTHOR AUTHOR'S ORGANIZ ATION 05/12/2023 [facility] [place] [facility] FOR RECORDS PERTAINING TO PATIENTS WHO ARE [...] PRIMARY CLINICAL RECORDS. [facility]. provides no warranty or guarantee of the accuracy or completeness of information in this document.
== END | disposition home or self-care (01) ==
LOC: LABSPEC 12:10
PROVIDERS: PCP Nurse Practitioner Family; Referring Provider Advanced Practice Midwife; Visit Provider Advanced Practice Midwife
DX: O98.819 Other maternal infectious and parasitic diseases complicating pregnancy, unspecified trimester (principal); A74.9 Chlamydial infection, unspecified; Z3A.00 Weeks of gestation of pregnancy not specified
CPT/HCPCS: 87491; 87591

== ENCOUNTER → 2023-08-17 | Outpatient (CLI) | payer MEDICAID, SELFPAY ==
--- NOTE | 2023-08-17 08:41 | US_ITS ---
STUDY: OBSTETRICAL ULTRASOUND - BIOPHYSICAL PROFILE REASON FOR EXAM: Female, 22 years old GDM LMP: November 23, 2022. PRIOR ULTRASOUND: Comparison is made with prior study of August 03, 2023. TECHNIQUE: Transabdominal TECHNICAL QUALITY: Adequate. FINDINGS: There is a single intrauterine fetus. The fetus is in a cephalic presentation. There is demonstrated cardiac activity with a heart rate of 132 bpm. There is a normal amniotic fluid volume. The largest amniotic fluid pocket measures 4.9 cm. The amniotic fluid index (LUCERO) is 11 cm. The placenta is anterior in location and is not low lying. There are Grade 2 placental changes. Age by LMP: 38 weeks, 1 days. ANNA MARIE by LMP: August 30, 2023. age by prior US: 39 weeks, 3 days. ANNA MARIE by prior US: August 21, 2023. BIOPHYSICAL PROFILE: Breathing Movements (FBM): 2 Gross Body Movements (GBM): 2 Tone (FT): 2 Amniotic Fluid Volume (AFV): 2 TOTAL SCORE: 8 / 8 US/Biophysical Prof W/O Non Stres IMPRESSION: Normal biophysical profile of 02/06. Electronically Signed: Eduardo Eugene MD at 9:40 EST ,
--- OUTSIDE RECORDS SUMMARY | 2023-08-17 08:55 | XMS RPT_ITS | CCD ---
Author Name Unknown Address [address] [place] [address] Organization [facility] Care Team Providers Care Consumer Loan Manager Name Role Phone Sukumar Joya Unavailable Unavailable *SELF, REFERRED Unavailable Unavailable Sukumar Joya Unavailable Unavailable CAROLYNE CURRY Unavailable Unavailable Michelle Roberts Unavailable Unavailable Maribel Mccabe Unavailable Unavailable BIRD RUIZ CNP Consulting Unavailable BIRD RUIZ CNP Attending Unavailable BIRD RUIZ CNP Admitting Unavailable BIRD RUIZ CNP Primary Care Unavailable PROVIDER, UNKNOWN Consulting Unavailable PROVIDER, UNKNOWN Consulting Unavailable TRISTA SAMS-C Admitting Unavaila ble SAMSTRISTA BRIGGS SIGN WIRER-C Primary Care Unavaila tera SAMSTRISTA BRIGGS-C Attending [...] Facility Start: 12-07-2022 End: 12-07-2022 ambulatory BIRD [facility] Start: 11-09-2022 End: 11-09-2022 ambulatory TRISTA VALLE [facility] Start: 10-16-2022 End: 10-16-2022 ambulatory BIRD [facility] Start: 07-18-2022 End: 07-18-2022 ambulatory BIRD [facility] Start: 08-14-2017 Ambulatory Ali Alban Mahnaz Facil ity:[facility] Start: 07-31-2017 Ambulatory Ali Alban Mahnaz Facil ity:[facility] Start: 06-05-2017 Ambulatory CAROLYNE Lowe ty:UNI Start: 04-02-2017 Ambulatory Michelle Baez y:[facility] Payers Date Payer Category Payer Unknown [id number] 2000 Unknown [id number] 2.16.84 [id number] 2000 Unknown [id number] 2.16.84 [id number] 2000 Unknown [id number] 2.16.84 [id number] 2000 Unknown [id number] 2.16.84 [id number] Unknown [id number] Unknown M Worker's Compensation [id number] Summary Purpose Family History No Family [...] DATE CREATED AUTHOR AUTHOR'S ORGANIZ ATION 12/25/2017 [facility] DATE CREATED AUTHOR AUTHOR'S ORGANIZ ATION 12/26/2017 [facility] DATE CREATED AUTHOR AUTHOR'S ORGANIZ ATION 11/28/2018 [facility] DATE CREATED AUTHOR AUTHOR'S ORGANIZ ATION 12/12/2022 [facility] DATE CREATED AUTHOR AUTHOR'S ORGANIZ ATION 05/12/2023 [facility] ([place]) FOR RECORDS PERTAINING TO PATIENTS WHO ARE [...] BE BASED ON THE PRIMARY CLINICAL RECORDS. [facility] [employer] [facility]. provides no warranty or guarantee of the accuracy or completeness of information in this document.
== END | disposition home or self-care (01) ==
LOC: US 08:38
PROVIDERS: PCP Nurse Practitioner Family; Referring Provider Obstetrics & Gynecology; Visit Provider Obstetrics & Gynecology
DX: O24.419 Gestational diabetes mellitus in pregnancy, unspecified control (principal); Z3A.00 Weeks of gestation of pregnancy not specified
CPT/HCPCS: 76819

== ENCOUNTER 2023-08-20 05:30 | Inpatient (IN) | payer MEDICAID, SELFPAY ==
[2023-08-20] VITALS (18 sets, daily range): BP systolic 120–143; BP diastolic 58–87; PULSE 64–99; RESP 12–22; TEMP 35.8–36.8; O2SAT 96–100; BMI 47.9
--- NOTE | 2023-08-20 05:43 | NURSING ---
Pt has continuous blood glucose monitor in right arm, current blood sugar 116.
[2023-08-20] MEDS: Lactated Ringers 1,000 ML 999 ML IV (05:50)
[2023-08-20] MEDS: Acetaminophen 500 MG Tablet 1000 MG PO ×3 (06:10→19:19)
[2023-08-20 06:19] LABS: Absolute Lymphocyte Count 2.62 X10^3/uL (0.83-4.51); Absolute Neutrophil Count 10.9 X10^3/uL (2.0-7.7); Basophil# 0.11 X10^3/uL; Basophil% 0.7 % (0-1); Eosinophil# 0.11 X10^3/uL; Eosinophils% 0.7 % (0-5); Hematocrit 34.7 % (37-47); Hemoglobin 11.2 g/dL (12.0-15.0); Lymphocyte # 2.62 X10^3/ul (0.83-4.51); Lymphocyte % 17.6 % (19-41); Mean Corp Hgb Conc 32.3 g/dL (32-36); Mean Corpuscular Hgb 28.4 pg (27.0-32.0); Mean Corpuscular Volume 88.1 fL (81-99); Monocyte# 0.91 X10^3/uL; Monocyte% 6.1 % (0-10); NRBC Flagged by Analyzer 0 % (0-5); Neutrophil # 10.89 X10^3/uL (2.7-7.7); Neutrophil % 73.2 % (47-70); Platelet Count 335 K/mm3 (150-450); RBC Distribution Width CV 14.6 % (11.6-14.6); Red Blood Count 3.94 M/mm3 (4.2-5.4); White Blood Count 14.9 K/mm3 (4.4-11.0)
[2023-08-20 07:10] LABS: Amphetamine Urine VISTA NEGATIVE (<1000 ng/mL); Barbiturate Urine VISTA NEGATIVE (< 200 ng/mL); Benzodiazepine Urine VISTA NEGATIVE (< 200 ng/mL); Cocaine Urine VISTA NEGATIVE (< 300 ng/mL); Ecstacy Urine VISTA NEGATIVE (< 500 ng/mL); Methadone Urine VISTA NEGATIVE (< 300 ng/mL); PCP Urine VISTA NEGATIVE (< 25 ng/mL); THC Urine VISTA POSITIVE (< 50 ng/mL); Vista UDS pH Range 5
--- NOTE | 2023-08-20 07:35 | HP.PCM_ITS ---
History and Physical Date of Admission: 08/20/23 Vital Signs 05/18/2313:53 08/10/2413:17 08/14/2410:12 08/14/2410:12 Height 5 ft 3 in 5 ft 3 in 5 ft 3 in 5 ft 3 in Weight: 267 lb 2 oz BMI 47.3 BP 124/79 H Intake Visit Reasons: NST Basin Cleaner Required: No Is patient in pain?: No Allergies No Known Allergies Allergy (Verified 08/14/23 11:11) Medications multivit-min no.71-iron fum 28 mg-folate no.1 1 mg-dha 300 mg capsule (PNV- [place]) cap PO 01/11/23 [History Confirmed 08/14/23] aspirin 81 mg tablet,delayed release 81 mg PO DAILY #90 tabs 01/25/23 [Rx Confirmed 08/14/23] blood sugar diagnostic (Blood Glucose Test strips) #120 ea 02/08/23 [Rx Confirmed 08/14/23] 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 meter #1 ea 02/08/23 [Rx Confirmed 08/14/23] lancets #200 ea 02/08/23 [Rx Confirmed 08/14/23] BD Ultra-Fine Shelley Pen Needle 32 gauge x 5/32 (pen needle, diabetic) #150 ea 02/13/23 [Rx Confirmed 08/14/23] 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 sensor (FreeStyle Dot 3 Sensor device) #2 ea 02/13/23 [Rx Confirmed 08/14/23] insulin degludec 200 unit/mL (3 mL) subcutaneous pen (Tresiba FlexTouch U-200 insulin) 60 unit subcut DAILY 08/14/23 [History Confirmed 08/14/23] Last Menstrual Period: 11/23/22 Zika: Zika virus screening: Negative : No PFSH PFSH Medical History (Updated 08/19/23 @ 12:[address] Fadumo Johnson MD) Adopted Anxiety Complete Gestational diabetes Marijuana use Pre-eclampsia Surgical History History of dental surgery Family History Mother DiabetesGrandfather Diabetes Social History adopted: Yes (limited family medical history known) household members: family number of children: 1 current occupational status: employed current occupation: [employer] current occupational exposures/hazards: No pets and animals: Yes (Not managing litterbox) pets and animals: cat(s) and dog(s) history of recent travel: No sexually active: Yes Smoking Status: Former smoker quit date: 10/30/22 quit status: quit date established counseling given: counseling >3 minutes alcohol intake: former details: social drinking prior to substance use type: marijuana well-balanced diet: daily or most days caffeine: Yes Type: carbonated beverages Number of servings: 1 eating out: 1-3 times/week during the past year weight has: remained stable what type of physical activity do you participate in: walking frequency: 1-2 times per week duration: 30-45 minutes/day matt/confucianist: None seatbelt use: always do you feel safe at home: Yes additional social history: Patient works at [employer] Andre- Works at [employer] History 3 Elective abortions Hx Para 1 Spontaneous abortions 1 Hx # Term Pregnancies 1 Ectopic pregnancies Hx # Pregnancies Multiple births # of living children 1 Past Pregnancies Del. Date Name GA/Weeks Outcome Route Bth Weight Gen Labor Lgth Anesthesia Del Locatn Provider FOB 07/20/20 Andre 37 live - full term va cuum Male [facility] Delivery Date: 07/20/20 Last Updated by: Angy Ayon IOL pre-eclampsia VAVD triple I HPI NST Details: AZAEL SULTANA is a 22 year old @ 38w4d who presents for primary low transverse section due to uncontrolled diabetes, increased insulin demands and history of shoulder dystocia with EFW similar to previous infant. patient was counseled regarding risks of shoulder dystocia recurrence and prematurity, and decision is made to proceed with delivery. OB Visit ANNA MARIE Calculator Estimated Delivery Date Method Current WG Current Estimate 08/30/23 LMP (Certain) 38w 3d Other Estimates 09/02/23 Ultrasound #1 38w 0d Expected Delivery Route/Plan Labor Preferences- CB/BF classes: no labor support person: Andre (goes by Reuben) labor intervention preferences: [] pain management options preferred: epidural cut cord/dad catch: cord : maybe PP control planned: discussed discussed possible routes of delivery and associated risks: [] special requests: [] Specific Issue/Plans Covid status: discussed Flu vaccine: discussed Tdap vaccine: done Rhogam: na LARC form signed: done Problem list reviewed and updated with the most current plan of care details and appropriate orders placed. Relevant counseling for the gestational age provided. Continue routine care and follow up unless otherwise noted in visit notes/problem list details Initial Weight: 240 lb Date -?-?-?-?-?-?-?-?-?-?-?-?- EGA Weight BP Urine Prot -?-?-?-?-?-?-?-?-?-?-?-?- Glucose FHR FuHt Pres Dilation -?-?-?-?-?-?-?-?-?-?-?-?- Effaced St Visit Note 01/25/23-?-?-?-?-?-?-?-?-?-?-?-?- 9w 0d 240 lb 8 oz(+8 oz) 129/80 -?-?-?-?-?-?-?-?-?-?-?-?- -?-?-?-?-?-?-?-?-?-?-?-?- JV- bedside ultrasound shows + FHt and CRL measurs 25.5 mm 9 weeks 3 days. formal scan ordered for better visualization. desires NIPT. starting baby asa, pih baseline labs, phenergan for nausea. 02/23/23-?-?-?-?-?-?-?-?-?-?-?-?- 13w 1d 243 lb(+3 lb) 112/80 Negative -?-?-?-?-?-?-?-?-?-?-?-?- 500 g/dL 159 -?-?-?-?-?-?-?-?-?-?-?-?- KW- no vb/cramping. Discussed AFP. Formal US ordered. Reports good BS, sees Dr Vaughan. on 22 units of insulin in the evening. 03/23/23-?-?-?-?-?-?-?-?-?-?-?-?- 17w 1d 244 lb(+4 lb) 110/69 Negative -?-?-?-?-?-?-?-?-?-?-?-?- Negative 150 -?-?-?-?-?-?-?-?-?-?-?-?- SM no vb lof cramping 05/18/23-?-?-?-?-?-?-?-?-?-?-?-?- 25w 1d 247 lb 7 oz(+7 lb 7 oz) 130/83 Negative -?-?-?-?-?-?-?-?-?-?-?-?- Negative 145 -?-?-?-?-?-?-?-?-?-?-?-?- KW- no vb/lof/ctx. good fm. 36 units of insulin at HS. BS controlled. discussed NSTs at 32 weeks. Requesting waiting to repeat urine tox screen until a later appt due to testing positive last week for work. 06/06/23-?-?-?-?-?-?-?-?-?-?-?-?- 27w 6d 258 lb(+18 lb) 116/82 Negative -?-?-?-?-?-?-?-?-?-?-?-?- Negative 150 28 -?-?-?-?-?-?-?-?-?-?-?-?- -No VB, LOF. Good FM. States insulin same dosage, reports to Dr Vaughan. Audra, tdap, 28 wk labs 06/20/23-?-?-?-?-?-?-?-?-?-?-?-?- 29w 6d 257 lb 5 oz(+17 lb 5 oz) 122/82 Negative -?-?-?-?-?-?-?-?-?-?-?-?- Negative -?-?-?-?-?-?-?-?-?-?-?-?- -nurse visit for vision issues. No headache. Normal BP and urine. Pain mid to upper back-GB US today 06/22/23-?-?-?-?-?-?-?-?-?-?-?-?- 30w 1d 258 lb 4 oz(+18 lb 4 oz) 91/53 Negative -?-?-?-?-?-?-?-?-?-?-?-?- Negative 145 34 -?-?-?-?-?-?-?-?-?-?-?-?- kw-no vb/lof/ctx. good fm. blood sugars in the 50s throughout day. pt asymptomatic. encouraged to contact Dr Vaughan with numbers to see if insulin needs adjusted. BP low today and reports not drinking much fluid. encouraged to hydrate. overall doing well. 07/06/23-?-?-?-?-?-?-?-?-?-?-?-?- 32w 1d 268 lb(+28 lb) 120/76 Negative -?-?-?-?-?-?-?-?-?-?-?-?- Negative [id number] 32 -?-?-?-?-?-?-?-?-?-?-?-?- SM- unable to keep on monitor for nst due to body habitus, sent for bpp. no vb lof good fm n oregular ctx BS controlled 07/13/23-?-?-?-?-?-?-?-?-?-?-?-?- 33w 1d 259 lb 6 oz(+19 lb 6 oz) 124/80 -?-?-?-?-?-?-?-?-?-?-?-?- 140 -?-?-?-?-?-?-?-?-?-?-?-?- JV- nst reactivce. normal growth last week. has rpt at 36 weeks. glucose levels normal but had to go up a little on her insulin. 07/17/23-?-?-?-?-?-?-?-?-?-?-?-?- 33w 5d 262 lb(+22 lb) 122/77 Negative -?-?-?-?-?-?-?-?-?-?-?-?- Negative 140 -?-?-?-?-?-?-?-?-?-?-?-?- NST only reactive 07/24/23-?-?-?-?-?-?-?-?-?-?-?-?- 34w 5d 262 lb 2 oz(+22 lb 2 oz) 120/81 -?-?-?-?-?-?-?-?-?-?-?-?- 140 35 -?-?-?-?-?-?-?-?-?-?-?-?- KW- no vb/cramping. good fm. reactive NST. Increase in insulin again. good fm. having increase urinary frequency. urine culture sent. 07/27/23-?-?-?-?-?-?-?-?-?-?-?-?- 35w 1d 262 lb 2 oz(+22 lb 2 oz) 113/79 Negative -?-?-?-?-?-?-?-?-?-?-?-?- Negative 140 -?-?-?-?-?-?-?-?-?-?-?-?- JV- nst reactive. up to 50 of NPH at night. planning 39 week delivery. pt wants to avoid induction. may not be possible to avoid. 07/31/23-?-?-?-?-?-?-?-?-?-?-?-?- 35w 5d 260 lb(+20 lb) 124/84 Negative -?-?-?-?-?-?-?-?-?-?-?-?- Negative 140 -?-?-?-?-?-?-?-?-?-?-?-?- kw- NST only. reactive. growth US on sunday before appt 08/03/23-?-?-?-?-?-?-?-?-?-?-?-?- 36w 1d 263 lb(+23 lb) 123/77 Negative -?-?-?-?-?-?-?-?-?-?-?-?- Negative 145 Cephalic 2-?-?-?-?-?-?-?-?-?-?-?-?- 70 -1 kw- no vb/lof/cramping. g rowth today 66%. gbs today kw- no vb/lof/cramping. growth today 66%. gbs today. would like to discuss timing of delivery with physician due to another increase in insulin over the last week. kw- no vb/lof/cramping. growth today 66%. gbs today. would like to discuss timing of delivery with physician due to another increase in insulin over the last week. Rescreen gcc next week. 08/07/23-?-?-?-?-?-?-?-?-?-?-?-?- 36w 5d 267 lb(+27 lb) 120/76 Negative -?-?-?-?-?-?-?-?-?-?-?-?- Negative 145 Cephalic -?-?-?-?--?-?-?-?-?-?-?-?- kw- NST only. urine GCC sent 08/10/23-?-?-?-?-?-?-?-?-?-?-?-?- 37w 1d 267 lb 2 oz(+27 lb 2 oz) 125/84 Negative -?-?-?-?-?-?-?-?-?-?-?-?- Negative 145 Cephalic 3-?-?-?-?-?-?-?-?-?-?-?-?- 60 -2 KW-Reactive NST. KW-Reactive NST. GCC neg. good fm. labor precautions reviewed. Had SD with 6hg43jp (approx 3486g) baby. This baby EFW 3458 at 38 weeks. Discussed possible P C/S with patient for Hx SD. Risk and benefits of vs P C/S. many questions addressed. Will discuss with SM on . 08/14/23-?-?-?-?-?-?-?-?-?-?-?-?- 37w 5d 267 lb 2 oz(+27 lb 2 oz) 124/79 Negative -?-?-?-?-?-?-?-?-?-?-?-?- Negative 140 -?-?-?-?-?-?-?-?-?-?-?-?- SM- BS reviewed and continuing increased insulin demands- uncontrolled. reviewed risks of shoulder dystocia, recommend primary cseciton due to EFW similar to last baby and now she is a diabetic. also uncontrolled diabetes recommend 38 week delivery due to this. will proceed with 38 weeks delivery. due to c seciton availability scheduled for sunday, phoebe scheudled for end of week, if reassuring proceed with delivery sunday ACOG First Trimester First Trimester: Discussed Second Trimester Second Trimester: Signs and Symptoms of Labor, Selecting a care provider, Reproductive Life Planning & Contreception, Care Planning, Depression/Anxiety and Intimate Partner Violence; Discussed Tobacco Cessation Third Trimester Third Trimester: Pain Management Plans, Labor support person(s), Immediate Larc, Circumcision preference, Movement Monitoring, Signs and Symptoms of Preeclampsia, Infant Feeding No and Family Medical Leave or Disability Forms; Discussed Tobacco Cessation ROS Const Reports system reviewed and no additional complaints, except as documented Card Reports system reviewed and no additional complaints, except as documented Resp Reports system reviewed and no additional complaints, except as documented GI Reports system reviewed and no additional complaints, except as documented and Reports nausea Reports system reviewed and no additional complaints, except as documented Musc Reports system reviewed and no additional complaints, except as documented Exam Const General: cooperative, healthy appearing, comfortable and anxious HENNV Head: normal to inspection Nose: external nose normal Face and sinus: normal facial exam Neck Neck: normal visual inspection, full ROM and no lymphadenopathy Thyroid: thyroid normal Chest Chest palpation & inspection: normal inspection of the chest Resp Effort & Inspection: normal respiratory effort GI Inspection: normal to inspection Palpation: soft and other (gravid uterus) Other: infant vertex and appropriate size for gestational age Other: Cervical Exam: Extrem General: pedal edema Office Procedures Non-stress Test Non-Stress Test Indications for Monitoring: Yes diabetes Heart Rate Baseline: 140 Heart Rate Variability: moderate Movement: Present Heart Rate Accelerations: Present Decelerations: Absent Contractions: Absent Impression: Yes Reactive Non-Stress Test Category 1 Results POC Urinalysis 2 Dip (Clinic) Office Urine Glucose Negative Last Edit by Maribel Crisostomo on 08/14/23 11:55 Office Urine Protein Negative Last Edit by Maribel Crisostomo on 08/14/23 11:55 Coding Level of Care Code Off vis,est,level 3 Diagnoses False labor before 37 completed weeks of gestation in third trimester O47.03 Back pain affecting in second trimester O99.891; M54.9 Trimester: second trimester Insulin controlled gestational diabetes mellitus (GDM) in first trimester O24.414 Gestational diabetes mellitus control: insulin-controlled Trimester: first trimester Chlamydia infection affecting in third trimester O98.813; A74.9 Trimester: third trimester History of shoulder dystocia in prior , currently O09.299 Obesity affecting in third trimester, unspecified obesity type O99.213 Obesity type affecting : unspecified obesity Trimester: third trimester Former cigarette smoker Z87.891 H/O pre-eclampsia in prior , currently O09.299 H/O depression, currently O99.891; Z86.59 Marijuana use F12.90 Supervision of high risk , antepartum O09.90 37 weeks gestation of Z3A.37 Weeks of gestation: 37 weeks CPT Codes Non-Stress Test (32707) Assessment and Plan Assessment and Plan (1) False labor before 37 completed weeks of gestation in third trimester: Status: Acute Comment: ROM plus negative on 07/25/23 (2) Back pain affecting : Status: Acute Qualifiers: Trimester: second trimester Qualified Code(s): O99.891 - Other specified diseases and conditions complicating ; M54.9 - Dorsalgia, unspecified (3) Gestational diabetes: Status: Acute Qualifiers: Gestational diabetes mellitus control: insulin-controlled Trimester: first trimester Qualified Code(s): O24.414 - Gestational diabetes mellitus in , insulin controlled Comment: primary csection 08/20 @ 7:15 with SM on insulin started at 11 weeks. NSTs starting 32 weeks twice weekly Growth US at 37 wk:67%. increasing insulin demands weekly, with limited control recommend delivery at 38 weeks (4) Chlamydia infection affecting : Status: Acute Qualifiers: Trimester: third trimester Qualified Code(s): O98.813 - Other maternal infectious and parasitic diseases complicating , third trimester; A74.9 - Chlamydial infection, unspecified Comment: Treated 01/29/23. 02/07/23:reexposure and retreated. 03/23/23- neg 08/07/23-neg (5) History of shoulder dystocia in prior , currently : Status: Acute Comment: EFW similar to last baby with moderate shoulder dystocia, and this rpegnancy is complicated with uncontrolled diabetes. recommend proceeding with primary cseciton at 38 weeks (6) Obesity affecting : Status: Acute Qualifiers: Obesity type affecting : unspecified obesity Trimester: third trimester Qualified Code(s): O99.213 - Obesity complicating , third trimester Comment: 1 tm gct abnl, encouraged healthy weight gain (7) Former cigarette smoker: Status: Acute Comment: Quit in October 2022. (8) H/O pre-eclampsia in prior , currently : Status: Acute Comment: baseline PIH labs at start of preg- prot: cr normal. (9) H/O depression, currently : Status: Acute (10) Marijuana use: Status: Acute Comment: encouraged cessation, plan random tox screen. Positive 12/06/19, 01/30/20, 03/24/20-01/24/23 Pt has medical marijuana card. Pt is using marijuana vape 2-3 times per day and states trying to quit. Counseling provided. (11) Supervision of high risk , antepartum: Status: Acute Comment: PRR , ANNA MARIE 08/30/23, boy, MAX Powell, Andre (12) : Status: Acute Qualifiers: Weeks of gestation: 37 weeks Qualified Code(s): Z3A.37 - 37 weeks gestation of Comment: GBS neg, NIPT low risk, declined carrier testing Orders: Orders proceed with LTCS for history of shoulder dystocia, proceed now due to uncontrolled diabetes with increased insulin needs.
--- NOTE | 2023-08-20 07:40 | OP.PCM_ITS ---
Assessment & Plan (1) Chlamydia infection affecting : QUALIFIERS: Trimester: third trimester Qualified Code(s): O98.813 - Other maternal infectious and parasitic diseases complicating , third trimester; A74.9 - Chlamydial infection, unspecified COMMENT: Treated 01/29/23. 02/07/23:reexposure and retreated. 03/23/23- neg 08/07/23-neg (2) History of shoulder dystocia in prior , currently : COMMENT: EFW similar to last baby with moderate shoulder dystocia, and this rpegnancy is complicated with uncontrolled diabetes. recommend proceeding with primary cseciton at 38 weeks (3) Obesity affecting : QUALIFIERS: Obesity type affecting : unspecified obesity Trimester: third trimester Qualified Code(s): O99.213 - Obesity complicating , third trimester COMMENT: 1 tm gct abnl, encouraged healthy weight gain (4) Former cigarette smoker: COMMENT: Quit in October 2022. (5) H/O pre-eclampsia in prior , currently : COMMENT: baseline PIH labs at start of preg- prot: cr normal. (6) H/O depression, currently : (7) Supervision of high risk , antepartum: COMMENT: PRR , ANNA MARIE 08/30/23, boy, MAX Powell, Andre (8) : QUALIFIERS: Weeks of gestation: 37 weeks Qualified Code(s): Z3A.37 - 37 weeks gestation of COMMENT: GBS neg, NIPT low risk, declined carrier testing (9) Gestational diabetes: QUALIFIERS: Gestational diabetes mellitus control: insulin- controlled Trimester: first trimester Qualified Code(s): O24.414 - Gestational diabetes mellitus in , insulin controlled COMMENT: primary csection 08/20 @ 7:15 with SM on insulin started at 11 weeks. NSTs starting 32 weeks twice weekly Growth US at 37 wk:67%. increasing insulin demands weekly, with limited control recommend delivery at 38 weeks (10) Marijuana use: COMMENT: encouraged cessation, plan random tox screen. Positive 12/06/19, 01/30/20, 03/24/20-01/24/23 Pt has medical marijuana card. Pt is using marijuana vape 2-3 times per day and states trying to quit. Counseling provided. (11) delivery delivered: COMMENT: SM boy 38 GDM LTCS history of shoulder dystocia Maternal Data Information ANNA MARIE Calculator Estimated Delivery Date Method Current WG Current Estimate 08/30/23 LMP (Certain) 38w 4d Other Estimates 09/02/23 Ultrasound #1 38w 1d Final ANNA MARIE Source: LMP Details Operative Information Date of Procedure: 08/20/23 Pre-Operative Diagnosis: history shoulder dystocia, uncontrolled diabetes Post-Operative Diagnosis: same Indications for : - (history shoulder dysotcia, uncontrolled diabetes) Indications Narrative: Surgeon: Fadumo Johnson MD Classification: Scheduled Procedure Type: low transverse Type of Anesthesia: Spinal Special Medications: none Drain: Arceo to straight drain Fluids Replaced: crystalloid Procedure Start Time: 08:56 Procedure Stop Time: 09:33 Findings Description of Procedure: Spinal anesthesia was placed without difficulty. Arceo catheter was placed. The patient was placed in the dorsal supine position with leftward tilt. Patient was prepped and draped in the normal sterile fashion. Pfannenstiel skin incision was made with the scalpel and carried through to the underlying layer of fascia with the scalpel. Fascia was nicked in the midline and the incision extended laterally. The rectus bellies were dissected off superiorly and inferiorly with out complication both sharply and bluntly. The peritoneum was entered digitally. The incision was stretched and a low transverse uterine incision was made with the scalpel. The infant's head was delivered atraumatically followed by the anterior and posterior shoulders without complication the rest of the delivered. The cord was clamped and cut and the infant was handed off to awaiting nurse. The placenta was delivered spontaneously immediately following and was noted to be intact and have a three- vessel cord. The uterus was exteriorized cleared of all clots and debris, and the incision was closed in a single layer closure using #1 Monocryl. The ovaries and fallopian tubes were noted to be within normal limits. The uterus was returned to the maternal abdomen and gutters were cleared of all clots and debris. The peritoneum was closed with 3-0 Monocryl in a running fashion. Fascia was closed with 0 PDS in a running fashion. Subcutaneous tissue was copiously irrigated and the skin was closed with 3-0 Monocryl in a subcuticular fashion. Mepilex dressing was applied without complication. Patient was taken to recovery in stable condition. It was discussed with the patient that based on the clinical information obtained during this encounter, combined with her history, at this time I would recommend cesareans for future deliveries if further pregnancies are desired. Amniotic Membrane Rupture Type: Artificial Amniotic Fluid Description: Clear Placenta Disposition: [facility] Cord Vessel Description: 3 Vessels Delayed Cord Clamping: Yes Complications Risks of Surgery Discussed w/Patient: Bleeding, Infection, Need for Future C- Sections and Injury to surrounding structure(s) including bowel and bladder Vaginal Delivery Complication Complications: None Admit VTE Documentation VTE Present on Admission: No VTE Mechan Device Prophylaxis: SCD's Procedures Urinary/Genital 52xxx-59xxx: 11340 delivery+PP Care([facility])
--- NOTE | 2023-08-20 07:45 | PCM.DC ---
Discharge Instructions Diet Discharge Diet: No restrictions Activity Discharge Activity: May Not Drive (for 2 weeks or while taking narcotic pain medications.), May Shower and May Take a Tub Bath (in 7 days) May shower in (days): 0 May resume sexual activity in: 4-6 weeks Weight Bearing Status: Full weight bearing Lifting Restrictions: 20 pounds Dressing / Incision Call your doctor if your incision/area has: Continuous Slow Oozing, Sudden Increased Bleeding, Increased Pain/ Swelling, Increased Redness and Foul Smelling Discharge Call your doctor if you observe: Fever of 101 or Higher and Using more than 1 pad per hour (for 2 hours) Suture Line Care: Avoid Pulling/Pushing and Avoid Pinching/Bending Cleanse incision/area with: Soap & Water and Keep Dressing Clean & Dry Follow Up Care Please Follow Up With: Fadumo Johnson MD When: Call [phone] to make an appointment for an incision check in 1-2 weeks. Test Results: Test results from this visit will be discussed in further detail at your follow-up appointment, if applicable. Discharge Plan Admission Admit Date/Time: 08/20/23 05:30 Attending Provider: Fadumo Johnson Primary Care Provider: Bianca Borrero EXPORT SPECIALIST Discharge Orders/Prescriptions Prescriptions: No Action PNV-[place] 28-1-300 mg capsule 300 cap PO DAILY aspirin 81 mg tablet,delayed release (DR/EC) 81 mg PO DAILY Qty: 90 3RF insulin degludec [Tresiba FlexTouch U-200] 200 unit/mL (3 mL) insulin pen 60 unit subcut DAILY Rx Instructions: 60 units HS (DME) pen needle, diabetic [BD Ultra-Fine Shelley Pen Needle] 32 gauge x 5/32 needle See Rx Instructions .ROUTE .MEDSUPPLY Qty: 150 6RF Rx Instructions: 4 times daily (DME) FreeStyle Dot 3 Sensor Device See Rx Instructions .Route Qty: 2 6RF Rx Instructions: As directed (DME) 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 meter Misc See Rx Instructions .MEDSUPPLY Qty: 1 0RF Rx Instructions: As directed- Test fasting and 2 hours after meals (DME) lancets Misc See Rx Instructions .MEDSUPPLY Qty: 200 8RF Rx Instructions: As directed- fasting and 2 HR post meals (DME) Blood Glucose Test Strip See Rx Instructions .Route Qty: 120 11RF Rx Instructions: As directed fasting and 2 hr post meals Referrals / Follow Up: Bianca Borrero NP, EXPORT SPECIALIST-C [Primary Care Provider] - Disposition Disposition (needs filled in before D/C Order can be placed): Home, Self Care
[2023-08-20 07:56] LABS: Syphilis Antibodies Non-reactive
[2023-08-20] MEDS: Sodium Citrate/Citric Acid 30 ML UDC PO (08:23)
[2023-08-20] MEDS: Cefazolin 3 GM in 0.9% Normal Saline (100mL Bag) 100 ML IV (08:43)
[2023-08-20] MEDS: Oxytocin 15 Units/NS 250ml 15 UNITS/250 ML IV.SOLN 83 UNITS IV (09:55)
[2023-08-20] MEDS: Ketorolac 30 MG/ML Syringe IV ×3 (10:04→23:48)
[2023-08-20 10:33] LABS: Bedside Glucose 121 mg/dL (74-106)
[2023-08-20] MEDS: HYDROmorphone Inj 0.2 MG/ML SYRINGE 0.200000000000000011 MG IV ×2 (11:56→20:17)
[2023-08-20 14:14] LABS: Bedside Glucose 90 mg/dL (74-106)
[2023-08-20] MEDS: Senna/Docusate Sodium 1 Tablet PO (15:04)
[2023-08-20 19:52] LABS: Bedside Glucose 56 mg/dL (74-106)
[2023-08-20] MEDS: Enoxaparin 40 MG/0.4 ML Syringe SC (20:08)
[2023-08-20 20:41] LABS: Bedside Glucose 78 mg/dL (74-106)
[2023-08-20 23:10] LABS: Bedside Glucose 118 mg/dL (74-106)
[2023-08-20] MEDS: 0.9% Saline Lock 10 ML Syringe IV (23:48)
[2023-08-21] MEDS: Acetaminophen 500 MG Tablet 1000 MG PO ×4 (00:42→20:17)
[2023-08-21 03:10] VITALS: BP 134/73; PULSE 88; RESP 18; TEMP 36.5; O2SAT 99
[2023-08-21] MEDS: Ketorolac 30 MG/ML Syringe IV (05:26)
[2023-08-21] MEDS: 0.9% Saline Lock 10 ML Syringe IV (05:26)
[2023-08-21 05:47] LABS: Hematocrit 26.5 % (37-47); Hemoglobin 8.3 g/dL (12.0-15.0); Mean Corp Hgb Conc 31.3 g/dL (32-36); Mean Corpuscular Volume 89.5 fL (81-99); Mean Platelet Vol. 10.1 fl (6.2-12.0); Platelet Count 250 K/mm3 (150-450); RBC Distribution Width CV 14.6 % (11.6-14.6); RBC Distribution Width SD 47.7 fl (35.1-43.9); Red Blood Count 2.96 M/mm3 (4.2-5.4); White Blood Count 11.2 K/mm3 (4.4-11.0)
[2023-08-21 07:18] LABS: Bedside Glucose 100 mg/dL (74-106)
--- NOTE | 2023-08-21 08:07 | PN.OBGYN_ITS ---
Subjective Subjective Patient doing well without complaints. Tolerating PO. Ambulating and voiding without difficulty. Feeding well. Denies chest pain, shortness of breath, calf pain/swelling, fevers, chills, lightheadedness. Objective Data Objective Data Vital Signs: Vital Signs Temp Pulse Resp BP Pulse Ox O2 Del Method 97.7 F L 88 18 134/73 H 99 Room Air 08/21/23 03:10 08/21/23 03:10 08/21/23 03:10 08/21/23 03:10 08/21/23 03:10 08/21/23 03:10 Oxygen Delivery Method Room Air Weight: 270 lb 9.6 oz Body Mass Index (BMI) 47.9 Intake & Output: Intake and Output for Last 24 Hours 08/19/23 08/20/23 08/21/23 23:59 23:59 23:59 Intake Total 1365 / 1365 Output Total 1400 / 1400 200 / 200 Balance -35 / -35 -200 / -200 Lab / Micro Data Attestation: I reviewed the patient's lab results. 08/21/23 05:37 Labs: Laboratory Results - last 24 hr 08/20/23 10:10: POC Glucose 121 H 08/20/23 13:55: POC Glucose 90 08/20/23 19:24: POC Glucose 56 L 08/20/23 20:01: POC Glucose 78 08/20/23 22:05: POC Glucose 118 H 08/21/23 05:37: WBC 11.2 H, RBC 2.96 L, Hgb 8.3 L, Hct 26.5 L, MCV 89.5, MCH 28.0, MCHC 31.3 L, RDW Std Deviation 47.7 H, RDW Coeff of Elver 14.6, Plt Count 250, MPV 10.1 08/21/23 06:59: POC Glucose 100 ROS Constitutional Constitutional: Reports systems reviewed and no addt'l complaints, except as documented; Denies anorexia or headache(s) Cardiovascular Cardiovascular: Reports systems reviewed and no addt'l complaints, except as documented; Denies dizziness, dyspnea, nausea or tachypnea Respiratory/Chest Respiratory/Chest: Reports systems reviewed and no addt'l complaints, except as documented; Denies cough, dyspnea, shortness of breath at rest or tachypnea Gastrointestinal Gastrointestinal: Reports systems reviewed and no addt'l complaints, except as documented; Denies abdominal pain, constipation or nausea Genitourinary Genitourinary: Reports systems reviewed and no addt'l complaints, except as documented; Denies burning urination, difficulty urinating, dysuria, urinary frequency or urinary incontinence Musculoskeletal Musculoskeletal: Reports systems reviewed and no addt'l complaints, except as documented Integumentary Integumentary: Reports systems reviewed and no addt'l complaints, except as documented Neurologic Neurologic: Reports systems reviewed and no addt'l complaints, except as documented; Denies abnormal speech, dizziness or headache(s) Psychiatric Psychiatric: Reports systems reviewed and no addt'l complaints, except as documented Endocrine Endocrinology: Reports systems reviewed and no addt'l complaints, except as documented Hematologic/Lymphatic Hematologic/Lymphatic: Reports systems reviewed and no addt'l complaints, except as documented Physical Exam Const alert, oriented x3 and no apparent distress Neck full ROM Resp normal respiratory effort, normal air movement and no retractions Effort and Inspection: able to speak in complete sentences and symmetric chest movement GI soft to palpation Inspection: incision intact Bladder / Kidney Exam: bladder normal to palpation Uterus Palpation: uterus fundus Extremity normal to inspection and full ROM Skin no rashes or lesions noted Neuro moves all extremities Psych mental status grossly normal, thought process normal and cooperative Assessment & Plan (1) delivery delivered: COMMENT: SM boy 38 GDM LTCS history of shoulder dystocia PLAN: s/p LTCS PPD # 1 1. routine post care 2. breast feeding- support given 3. rh positive 4. rubella immune 5. Discharge Home (2) Gestational diabetes: QUALIFIERS: Gestational diabetes mellitus control: insulin- controlled Trimester: first trimester Qualified Code(s): O24.414 - Gestational diabetes mellitus in , insulin controlled COMMENT: primary csection 08/20 @ 7:15 with SM on insulin started at 11 weeks. NSTs starting 32 weeks twice weekly Growth US at 37 wk:67%. increasing insulin demands weekly, with limited control recommend delivery at 38 weeks (3) Marijuana use: COMMENT: encouraged cessation, plan random tox screen. Positive 12/06/19, 01/30/20, 03/24/20-01/24/23 Pt has medical marijuana card. Pt is using marijuana vape 2-3 times per day and states trying to quit. Counseling provided. Charges/Coding Multi Select Codes Urinary/Genital Urinary/Genital CPT Codes: No Charge
[2023-08-21] MEDS: Enoxaparin 40 MG/0.4 ML Syringe SC ×2 (08:16→20:18)
[2023-08-21 08:34] VITALS: BP 118/66; PULSE 88; RESP 16; TEMP 36.6; O2SAT 98
[2023-08-21] MEDS: Senna/Docusate Sodium 1 Tablet PO (10:42)
[2023-08-21] MEDS: Naproxen 500 MG Tablet PO ×2 (10:42→18:24)
[2023-08-21 12:21] LABS: Bedside Glucose 83 mg/dL (74-106)
[2023-08-21 12:44] LABS: Hemoglobin 8.8 g/dL (12.0-15.0); Mean Corp Hgb Conc 32.6 g/dL (32-36); Mean Corpuscular Hgb 28.6 pg (27.0-32.0); Mean Corpuscular Volume 87.7 fL (81-99); Mean Platelet Vol. 10.7 fl (6.2-12.0); Platelet Count 284 K/mm3 (150-450); RBC Distribution Width CV 14.7 % (11.6-14.6); RBC Distribution Width SD 46.5 fl (35.1-43.9); Red Blood Count 3.08 M/mm3 (4.2-5.4); White Blood Count 11.7 K/mm3 (4.4-11.0)
--- NOTE | 2023-08-21 14:04 | CASEMGMT ---
Social Work Assessment Labor and Delivery Unit Patient Address:[address] [place] [address] Phone number: [phone] Date of Referral: 08/20/23 Time of Referral:? 629 Referred By: Fadumo Johnson Date of Intervention: ?08/21/23? Time of Intervention:? 1000 Reason for Referral:? THC use, anxiety, depression Sw completed chart review and acknowledges social work consult received. Sw presented to bedside and introduced self to mother of baby (MOB- Susie) and father of baby (FOB- Andre). Sw explained reason for sw intervention and completed psychosocial assessment. Sw asked FOB to step out of room momentarily so that MOB could complete [place] Depression Scale and SDOH. FOB left room respectfully and without issue. History obtained from: medical records, MOB and FOB Household composition: JOE states that currently herself, FOB, their two year old son and now reside with her parent. No concerns with housing at this time. Somehow SDOH was tripped, and indicated that there are housing concerns. JOE completed SDOH screening tool and states that at this time she has reliable and safe housing and is not in jeopardy of losing it. Patient's parent/guardian status:? ?JOE states that she and FOB have been together for 5 years, they were introduced to each other by a mutual friend. While meeting with MOB privately, she denies any concerns with domestic violence or intimate partner violence. Medical History: ?JOE is 22 year old female who is 3, para 1-now 2 following labor and deliery of . JOE received routine care during with [facility]. JOE delivered baby on 08/20/23 via scheduled at 38 weeks gestation. Baby boy, named Radames Elizondo, was born weighing 7lb 8oz and his apgars were 8 and 9 at one and five minutes of life, respectfully. Baby will be followed by Dr. Hutson for pediatrics. JOE states that she is breast feeding and it is going well. JOE states that her first baby has hypoglycemia and struggled with feeds, which resulted in an admission at [facility] where he was given an NG tube. JOE states that this time she is still planning on breast feeding since it is going well, but hopes that this baby does not have same issues that her first baby did. Sw provided support and encouraged JOE to utilize assistance from when warranted. Educational Status:? FOAshleigh graduated from high school. MOB is currently in classes to obtain her nursing degree. Parents deny concerns with reading, learning or comprehension. Financial Status: Both parents are gainfully employed outside of the home. 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 Supplies:?? Parents state that they have obtained all necessary baby supplies, including: car seat, safe sleep space, clothes, diapers and wipes. Childcare/Caregiver(s):?MOB is the primary caregiver to baby, along with FOB when he is not at work. MOB states that her parents are also a big help when it comes to childcare needs. Transportation:??Both parents have their drivers license and reliable means of transportation. No barriers at this time. Programs/Agencies Involved: ??MOB states that they are not connected to any community resources that assist them financially at this time. Children Services/Legal Issues: When their first child was born (Andre: 07/20/20) a referral was made to Children Services due to MOB substance use during (THC). MOB states that she was also prescribed percocept during due to kidney stone, so when baby was born she tested positive for an opiate. MOB states that at that time children services remains involved due to that issue. - REID informed MOB that there is need for sw to make referral at this time due to MOB use of THC during . MOB expressed understanding. - Reid called [facility] and spoke to hotline screenerMalu. Behavioral Health Issues: ??Mental Health History:?FOB states that he has been recently diagnosed with anxiety, and is prescribed zoloft. FOB states that he works third shift, and when he would come home from work it would be hard for him to shut his brain off. FOB states that since starting the medication he has been less anxious. MOB states that she has been diagnosed with anxiety, and was formerly prescribed zoloft. MOB states that after her first son was born he was transferred to the Special Care Unit, and then to [facility] due to feeding difficulties. MOB states that during that time it was also COVID and she was struggling to balance life between home and the NICU and this contributed to her mental health significantly. MOB states that she did experience depression at that time due to this issues. MOB completed [place] depression scale and her score was a 5. Sw provided education and support. ?? Substance Use History:?JOE admits to smoking THC regularly throughout this due to loss of appetite. MOB states that she does have her medical card. 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 FOB admits to also using marijuana but not as frequent as MOB. ? Family History: MOB states that her father also smokes marijuana. ? Drug Screens: ??Drug screens for MOB and baby at time of delivery were positive for THC. Family/Social Stressors:? Parents deny concerns or stressors at this time. Support Systems: JOE states that FOB and her parents are her biggest supports. Depression/Shaken Baby/Safe Sleeping:? Sw educated parents on signs and symptoms of baby blues and depression, parents express understanding. Sw educated parents on shaken baby prevention and ABCs of safe sleep, parents express understanding. ASSESSMENT:? MOB and baby admitted following labor and delivery. MOB required and will be admitted through tomorrow. MOB and FOB actively participated in completion of psychosocial assessment. Parents open and honest regarding history of and current substance use. MOB observed providing loving and appropriate hands on care of . Parents have obtained all necessary baby supplies for baby and have natural supports in place. MOB with mental health history positive for anxiety and depression. MOB encouraged to talk to OBGYN if she feels as though her mental health is struggling and get back on medication or start counseling. MOB receptive to recommendations. Safe Plan of Care for infant related to substance use:? JOE does not plan to continue smoking now that baby has been born. Both parents provided education and encouraged to smoke outside of the home and to change clothes/ wash hands. Parents express understanding. PLAN:? MOB and baby to be discharged when medically ready. If Children Services screens in referral they will follow up with them at home once discharged. ?No other services requested or indicated. Jenna Martel, CONCESSION CASHIER, MARKETING COMPLIANCE MANAGER
[2023-08-21 15:00] VITALS: BP 108/55; PULSE 82; RESP 18; TEMP 36.6; O2SAT 98
[2023-08-21 18:10] LABS: Bedside Glucose 80 mg/dL (74-106)
[2023-08-21 20:30] VITALS: BP 152/91; PULSE 88; RESP 16; TEMP 36.4; O2SAT 98
[2023-08-21 21:40] VITALS: BP 145/85
[2023-08-22] MEDS: Naproxen 500 MG Tablet PO (02:30)
[2023-08-22] MEDS: Acetaminophen 500 MG Tablet 1000 MG PO ×2 (02:30→08:35)
[2023-08-22 02:35] VITALS: BP 136/70; PULSE 82; RESP 18; TEMP 36.3; O2SAT 100
--- NOTE | 2023-08-22 07:53 | PN.OBGYN_ITS ---
Subjective Subjective Patient doing well without complaints. Tolerating PO. Ambulating and voiding without difficulty. Feeding well. Denies chest pain, shortness of breath, calf pain/swelling, fevers, chills, lightheadedness. Objective Data Objective Data Vital Signs: Vital Signs Temp Pulse Resp BP Pulse Ox O2 Del Method 97.3 F L 82 18 136/70 H 100 Room Air 08/22/23 02:35 08/22/23 02:35 08/22/23 02:35 08/22/23 02:35 08/22/23 02:35 08/22/23 02:35 Oxygen Delivery Method Room Air Weight: 270 lb 9.6 oz Body Mass Index (BMI) 47.9 Intake & Output: Intake and Output for Last 24 Hours 08/20/23 08/21/23 08/22/23 23:59 23:59 23:59 Intake Total 1365 / 1365 Output Total 1400 / 1400 200 / 200 Balance -35 / -35 -200 / -200 Lab / Micro Data 08/21/23 12:26 Labs: Laboratory Results - last 24 hr 08/21/23 12:03: POC Glucose 83 08/21/23 12:26: WBC 11.7 H, RBC 3.08 L, Hgb 8.8 L, Hct 27.0 L, MCV 87.7, MCH 28.6, MCHC 32.6, RDW Std Deviation 46.5 H, RDW Coeff of Elver 14.7 H, Plt Count 284, MPV 10.7 08/21/23 17:52: POC Glucose 80 Physical Exam Const alert and oriented x3 HEENT normocephalic Eyes PERRL Neck full ROM Resp normal respiratory effort GI soft to palpation GI Narrative: FF below U. Dressing dry and intact Palpation: tender other (appropriately) Assessment & Plan (1) delivery delivered: COMMENT: SM boy 38 GDM LTCS history of shoulder dystocia (2) Gestational diabetes: QUALIFIERS: Gestational diabetes mellitus control: insulin- controlled Trimester: first trimester Qualified Code(s): O24.414 - Gestational diabetes mellitus in , insulin controlled COMMENT: primary csection 08/20 @ 7:15 with SM on insulin started at 11 weeks. PLAN: Plan s/p LTCS PPD # 2 1. routine post care 2. breast feeding- support given 3. rh positive 4. rubella immune 5. glucose and BP stable 6. home today
[2023-08-22] MEDS: Enoxaparin 40 MG/0.4 ML Syringe SC (08:34)
[2023-08-22] MEDS: Senna/Docusate Sodium 1 Tablet PO (08:35)
[2023-08-22 08:42] VITALS: BP 124/70; PULSE 93; RESP 16; TEMP 36.3; O2SAT 98
== END 2023-08-22 10:00 | disposition home or self-care (01) | DRG 540 ==
PROVIDERS: Advanced Practice Midwife; Admitting Provider Obstetrics & Gynecology; PCP Nurse Practitioner Family; Visit Provider Obstetrics & Gynecology
PROC: 10D00Z1 Extraction of Products of Conception, Low, Open Approach (ICD-10-PCS; CPT 59514; principal; 2023-08-20 07:00)
DX: O24.424 Gestational diabetes mellitus in childbirth, insulin controlled (principal); O98.32 Other infections with a predominantly sexual mode of transmission complicating childbirth; F12.90 Cannabis use, unspecified, uncomplicated; O99.324 Drug use complicating childbirth; O99.214 Obesity complicating childbirth; E66.8 Other obesity; Z37.0 Single live birth; Z3A.38 38 weeks gestation of pregnancy; Z87.891 Personal history of nicotine dependence; A74.9 Chlamydial infection, unspecified; Z86.59 Personal history of other mental and behavioral disorders
CPT/HCPCS: 59025; 59050; 76819; 80307; 82962; 85025; 85027; 86780; 86850; 86900; 86901; 99221; J7120; A4216; G0378; J2405

== ENCOUNTER 2024-01-07 17:11 | Outpatient (RCR) | payer OTHER, MEDICAID, SELFPAY ==
--- NOTE | 2024-01-08 15:08 | HP.PTEVAL_ITS ---
Patient's Visit Information Visit Information Visit Information: AZAEL SULTANA is a 23 year old F referred to Physical Therapy by Rubia Barker CNM with a diagnosis of URINARY INCONTINENCE. Date of Evaluation: 01/07/24 Physical Therapist: Megan Serrato PT, Cert MDT Visit Plan Frequency: 1x/Week Duration: 2-4 Months Plan: PF THERAPY FOR STRENGTHENING, LENGTHENING/RELAXATION AND ENDURANCE TRA INING. URINARY URGE AND FREQUENCY EDUCATION. HEALTHY BLADDER HABIT EDUCATION. TRAINING IN COORDINATION OF PELVIC FLOOR MUSCULATURE WITH HIP AND CORE (TRANSVERSE ABDOMINUS) MUSCULATURE. CORE STRENGTHENING. JOSEPHINE LE ROM, STRETCHING AND STRENGTHENING. TRAINING IN ABDOMINAL CAVITY PRESSURE MGMT WITH ADL'S. 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 2 KIDS AGES 3 AND 4 MONTHS. FIRST DELIVERY WAS VAGINAL AND SECOND WAS . PATIENT REPORTS HER FIRST BABY GOT STUCK BUT BABY AND MOM WERE BOTH OK. Present symptoms: URINARY INCONTINENE. PATIENT REPORTS SHE IS NOT HERE FOR PAIN. Present since: 2018 Is it getting better, worse or staying the same: STAYING THE SAME Commenced as a result of: NO APPARENT REASON BUT STARTED DURING . Symptoms at onset: STARTED OCCURING WITH VOMITING AND PATIENT REPORTS SHE HAD A LOT OF MORNING SICKNESS. Worse: RISING FROM SITTING, GETTING UP FROM LYING DOWN, ROLLING OVER IN LYING, JUMPING ON TRAMPOLINE, RUNNING, COUGHING, SNEEZING, SOMETIMES JUST WALKING, SQUATTING, PUSHING AND PULLING CLIENTS AT WORK, SON JUMPING ON STOMACH, GETTING OUT OF TRUCK (HIGH SO JUMPING DOWN). Better: WENT AWAY FOR ABOUT A WEEK AFTER . Disturbed sleep: URINATING 1-2 TIMES AT NIGHT APPROX'LY Previous history/Previous treatment: NO PRIOR TREATMENTS. Treatment this episode: NO CURRENT TREATMENTS. Gait: NORMAL How long can you delay the need to urinate: 5 TO 30 MINUTES Prolapse (Falling out feeling): YES - FIRST NOTICED THIS ABOUT 2 YEARS AGO BUT HAS NOT MENTIONED IT TO A DOCTOR. HAPPENED ONCE ON TRAMPOLINE AND THEN FELT IT AGAIN SHORTLY AFTER LAST PHYSICIAN VISIT WHEN WIPING INTERMITTENTLY. WILL NOTIFY DOCTOR. Frequency of Urination: ABOUT EVERY 2 HOURS. Ability to stop urine flow: ABLE TO SLOW IT DOWN BUT NOT STOP IT Ability to initiate urine stream: YES Dyspareunia: SOMETIMES Bowel Incontinence: NO Accidents: NO Unexplained weight loss: NO Imaging: NO PMH/Recent major surgery: LOW BACK PAIN AND UPPER BACK PAIN - TREATED WITH CHIROPRACTIC. ANXIETY. OTHER: CURRENTLY BREAST FEEDING. Objective Objective: Sitting/Standing Posture: ANT PELVIC TILT. NO RELEVANT LATERAL SHIFT Other Observations: INDEP GAIT AND TRANSFERS Sensory deficit: JOSEPHINE LE LIGHT TOUCH SENSATION GROSSLY INTACT AND SYMMETRICAL ROM deficit: MILD JOSEPHINE LE HS AND HIP ER TIGHTNESS. Motor deficit: JOSEPHINE LE'S GROSSLY 5/5 WITH MMT'ING. PELVIC FLOOR STRENGHT GRADED 3/5 WITH INTERNAL MANUAL VAGAINAL TESTING X 4 SEC X 4. Dural Signs: NEGATIVE JOSEPHINE LE'S. Lumbar mvmt loss: flex - NIL ext - MIN R SG - NIL L SG - NIL PATIENT C/O SOME SORENESS AND TIGHTNESS WHEN MOVING SIDE TO SIDE BUT NW A RESULT. Core strength: FAIR Palpation: NO TENDERNESS, HIGH TONE OR TRIGGER POINTS PALPATED WITH INTERNAL MANUAL VAGINAL PALPATION OF PELVIC FLOOR MUSCUALTURE. FUNCTIONAL SCREEN: Incontinence Impact Questionnaire Score: 12 Urogenital Distress Inventory Score: 9 Goals Goal 1:: DECREASE URINARY LEAKAGE EPISODES TO ONE OR LESS PER DAY Goal Time Frame: 8-12 Weeks Goal 2:: PATIENT WILL SUCCESSFULLY DELAY VOIDING LONG NEEDED WHEN URGENCY OCCURS TO SUCCESSFULLY MAKE IT TO THE BATHROOM. Goal Time Frame: 6-8 Weeks Goal 3:: PATIENT WILL DEMONSTRATE/COMMUNICATE 10 CONSISTENT AND CONSECUTIVE 10 SECOND PELVIC FLOOR MUSCLE CONTRACTIONS TO DEMONSTRATE IMPROVED PELVIC FLOOR ENDURANCE. Goal Time Frame: 8-12 Weeks Goal 4:: DEVELOP HEALTHY FLUID INTAKE HABITS WITH FLUID INTAKE OF ? BODY WEIGHT IN OUNCES PER DAY AND 2/3 BEING WATER. Goal Time Frame: 2-4 Weeks Goal 5:: NORMALIZE VOIDING FREQUENCEY TO EVERY 3-4 HOURS. Goal Time Frame: 4-6 Weeks Goal 6:: PATIENT WILL BE INDEP WITH A HEP/HOME INSTRUCTIONS FOR CONTINUED IMPROVEMENT ONCE FORMAL PHYSICAL THERAPY CONCLUDES. Goal Time Frame: 8-12 Weeks Rehabilitation Potential Physical Therapy Diagnosis: URINARY INCONTINENCE WITH CORE AND PELVIC FLOOR WEAKNESS AND LE TIGHTNESS. Rehabilitation Potential: Good Anticipated Interventions Patient/Client Instruction: Educate patient on: Condition, Plan of Care and Risk Factors For the Purpose of:: To improve self management Therapeutic Exercise to Include: Strength training, Endurance training, Coordination, Body mechanics, Postural training, Flexibilty training, Neuromotor development and Relaxation training For the Purpose of:: To improve muscle performance and motor function, To improve ability of physical actions for home/community/work/leisure, To increase flexibility/ROM and To improve self management Text: Thank you for the opportunity to evaluate your patient. For Medicare and Medicare HMO plans, please review the plan of care and approve it. It will need to be FAXED BACK to us at [phone] for Medicare purposes. For Medicare only, by signing this I certify the plan of care. Please let me know if there are questions or concerns regarding this plan of care. Physician Signature: Date:
--- NOTE | 2024-06-26 14:28 | HP.PTDCNRP_ITS ---
Patient Information Patient Information: AZAEL SULTANA was seen in my office for initial evaluation on 01/07/24. The following Plan of Care was established for this patient: POC Established Initial Frequency: 1x/Week Initial Duration: 2-4 Months Anticipated Interventions Patient/Client Instruction: Educate patient on: Condition, Plan of Care and Risk Factors For the Purpose of:: To improve self management Therapeutic Exercise to Include: Strength training, Endurance training, Coordination, Body mechanics, Postural training, Flexibilty training, Neuromotor development and Relaxation training For the Purpose of:: To improve muscle performance and motor function, To improve ability of physical actions for home/community/work/leisure, To increase flexibility/ROM and To improve self management Last Seen Last Seen: This patient was last seen in our office 01/07/24. Pertinent comments regarding their Physical therapy will appear below: It has been my pleasure to see this patient for a total of 1 visits. This patient has not returned to Physical Therapy for more visits and is appropriate to return to MD for further follow-up as needed. At this point I will be discontinuing this patient from physical therapy. I wou ld be happy to see this patient again in the future if found appropriate by the physician. Thank you! Megan Serrato, PT, Cert MDT
== END 2024-01-07 19:00 | disposition home or self-care (01) ==
LOC: PT 17:11
PROVIDERS: PCP Nurse Practitioner Family; Referring Provider Registered Nurse; Visit Provider Registered Nurse
DX: R32 Unspecified urinary incontinence (principal)
CPT/HCPCS: 97162

== ENCOUNTER → 2024-07-03 | Outpatient (CLI) | payer MEDICAID, SELFPAY ==
[2024-07-08 07:06] LABS: Chlamydia By Nucleic Acid AMP Negative (Negative); Gonococcus By Nucleic Acid AMP Negative (Negative)
== END | disposition home or self-care (01) ==
LOC: LABSPEC 15:30
PROVIDERS: PCP Nurse Practitioner Family; Referring Provider Advanced Practice Midwife; Visit Provider Advanced Practice Midwife
DX: O00.90 Unspecified ectopic pregnancy without intrauterine pregnancy (principal); O99.210 Obesity complicating pregnancy, unspecified trimester; O09.299 Supervision of pregnancy with other poor reproductive or obstetric history, unspecified trimester
CPT/HCPCS: 87086; 87088; 87491; 87591

== ENCOUNTER → 2024-07-21 | Outpatient (CLI) | payer MEDICAID, SELFPAY ==
[2024-07-21 16:35] LABS: Absolute Lymphocyte Count 1.97 X10^3/uL (0.83-4.51); Absolute Neutrophil Count 6.5 X10^3/uL (2.0-7.7); Basophil# 0.03 X10^3/uL; Basophil% 0.3 % (0-1); Eosinophil# 0.08 X10^3/uL; Eosinophils% 0.9 % (0-5); Hematocrit 35.2 % (37-47); Hemoglobin 11.4 g/dL (12.0-15.0); Lymphocyte # 1.97 X10^3/ul (0.83-4.51); Lymphocyte % 21.8 % (19-41); Mean Corp Hgb Conc 32.4 g/dL (32-36); Mean Corpuscular Hgb 28.6 pg (27.0-32.0); Mean Corpuscular Volume 88.4 fL (81-99); Mean Platelet Vol. 10.2 fl (6.2-12.0); Monocyte# 0.45 X10^3/uL; NRBC Flagged by Analyzer 0 % (0-5); Neutrophil # 6.46 X10^3/uL (2.7-7.7); Neutrophil % 71.6 % (47-70); Platelet Count 329 K/mm3 (150-450); RBC Distribution Width CV 15.9 % (11.6-14.6); Red Blood Count 3.98 M/mm3 (4.2-5.4)
[2024-07-21 16:45] LABS: Glucose Challenge Gest 1H 50g 130 mg/dL (70-140)
[2024-07-21 16:57] LABS: ALB/GLOB Ratio 0.7 RATIO (0.9-2.4); AST(SGOT) 8 U/L (15-37); Alanine Aminotransfer ALT/SGPT 11 U/L (13-56); Albumin, Serum 2.8 g/dL (3.2-5.0); Alkaline Phosphatase 82 U/L (45-117); Anion Gap 5 (5-15); BUN 8 mg/dL (7-18); BUN/Creat Ratio 15.8 RATIO (10-20); Chloride 106 mmol/L (98-107); EST Glomerular Filtration Rate 160 mL/min (>60); Est Glom Filt Rate - Afr Amer 193 mL/min (>60); Globulin 3.9 g/dL (2.2-4.2); Glucose 138 mg/dL (74-106); Potassium 3.6 mmol/L (3.5-5.1); Protein, Total 6.7 g/dL (6.4-8.2); Sodium Level 135 mmol/L (136-145)
[2024-07-21 17:00] LABS: Protein, Urine (Random) 12.9 mg/dL (<11.9); Protein:Creat Ratio 98 mg/g CRE (0-200)
[2024-07-21 17:03] LABS: Hemoglobin A1c 5.5 % (3.8-5.6)
[2024-07-21 17:30] LABS: Amphetamine Urine NEGATIVE (<1000 ng/mL); Barbiturate Urine VISTA NEGATIVE (< 200 ng/mL); Benzodiazepine Urine VISTA NEGATIVE (< 200 ng/mL); Cocaine Urine VISTA NEGATIVE (< 300 ng/mL); Ecstacy Urine VISTA NEGATIVE (< 500 ng/mL); HIV - WCH Non-Reactive (Nonreactive); Hepatitis B Surface Antigen Non-Reactive (Nonreactive); Hepatitis C Antibody Non-Reactive (Nonreactive); Methadone Urine VISTA NEGATIVE (< 300 ng/mL); PCP Urine VISTA NEGATIVE (< 25 ng/mL); Rubella IgG Reactive (Nonreactive); Syphilis Antibodies Non-reactive; THC Urine VISTA POSITIVE (< 50 ng/mL); Vista UDS pH Range 5
== END | disposition home or self-care (01) ==
LOC: BWCLAB 14:35
PROVIDERS: PCP Nurse Practitioner Family; Referring Provider Advanced Practice Midwife; Visit Provider Advanced Practice Midwife
DX: O99.320 Drug use complicating pregnancy, unspecified trimester (principal); F12.20 Cannabis dependence, uncomplicated; Z3A.00 Weeks of gestation of pregnancy not specified; O99.210 Obesity complicating pregnancy, unspecified trimester; O09.299 Supervision of pregnancy with other poor reproductive or obstetric history, unspecified trimester; Z13.1 Encounter for screening for diabetes mellitus
CPT/HCPCS: 36415; 80053; 80307; 82570; 82950; 83036; 84156; 85025; 86703; 86762; 86780; 86803; 86850; 86900; 86901; 87340

== ENCOUNTER → 2024-11-11 | Outpatient (CLI) | payer SELFPAY ==
[2024-11-11 16:02] LABS: Absolute Lymphocyte Count 1.79 X10^3/uL (0.83-4.51); Absolute Neutrophil Count 8.6 X10^3/uL (2.0-7.7); Basophil# 0.06 X10^3/uL; Basophil% 0.5 % (0-1); Eosinophil# 0.11 X10^3/uL; Hematocrit 35.7 % (37-47); Hemoglobin 11.8 g/dL (12.0-15.0); Lymphocyte # 1.79 X10^3/ul (0.83-4.51); Mean Corp Hgb Conc 33.1 g/dL (32-36); Mean Corpuscular Hgb 29.6 pg (27.0-32.0); Mean Corpuscular Volume 89.7 fL (81-99); Mean Platelet Vol. 10.7 fl (6.2-12.0); Monocyte# 0.42 X10^3/uL; Monocyte% 3.8 % (0-10); NRBC Flagged by Analyzer 0 % (0-5); Neutrophil # 8.59 X10^3/uL (2.7-7.7); Neutrophil % 76.6 % (47-70); Platelet Count 347 K/mm3 (150-450); RBC Distribution Width SD 45.7 fl (35.1-43.9); Red Blood Count 3.98 M/mm3 (4.2-5.4); White Blood Count 11.2 K/mm3 (4.4-11.0)
[2024-11-11 17:08] LABS: Glucose Challenge Gest 1H 50g 194 mg/dL (70-140); HIV Nonreactive (Nonreactive); Syphilis Antibodies Nonreactive (Nonreactive)
== END | disposition home or self-care (01) ==
PROVIDERS: Advanced Practice Midwife; PCP Nurse Practitioner Family; Referring Provider Nurse Practitioner Women's Health; Visit Provider Nurse Practitioner Women's Health
DX: O09.90 Supervision of high risk pregnancy, unspecified, unspecified trimester (principal); Z3A.26 26 weeks gestation of pregnancy
CPT/HCPCS: 36415; 82950; 85025; 86703; 86780

== ENCOUNTER → 2024-12-17 | Outpatient (CLI) | payer MEDICAID, SELFPAY ==
--- NOTE | 2024-12-17 15:38 | US_ITS ---
PROCEDURE: OB LIMITED WITH BIOMETRICS 12/17/2024 REASON FOR EXAM: 31WK GESTATION GROWTH US TECHNIQUE: OB LIMITED WITH BIOMETRICS COMPARISON: None FINDINGS Number: 1 Position: Vertex Placental Position: Anterior Placental Abnormalities: No evidence of previa. DIMENSIONS: Biparietal Diameter: 8 cm: 32 weeks and 1 day: 26th percentile/ Head Circumference: 30.7 cm: 34 weeks and 2 days: 53rd percentile/ Abdominal Circumference: 30.1 cm: 34 weeks and 1 day: 86 percentile/ Femur Length: 6.7 cm: 33 weeks and 2 days: 52nd percentile/ ESTIMATED WEIGHT: 2237 g plus/-336 g ESTIMATED WEIGHT PERCENTILE (24+ weeks): 69 ESTIMATED GESTATIONAL AGE: Baseline: 32 weeks and 5 days By Ultrasound: 33 weeks and 3 days ESTIMATED DATE OF DELIVERY: Baseline: February 06, 2025 By Ultrasound: February 01, 2025 BIOPHYSICAL ASSESSMENT: Amniotic Fluid Volume: 3.9 Amniotic Fluid Index: 10.5 (8-24 cm normal range) Cardiac Motion: 164 beats per minute (average) Trunk and Limb Motion: Present. MATERNAL ANATOMY: Adnexa: Neither maternal ovary is successfully identified. Cervical Length (if measured): 4 cm US/OB Limited With Biometrics IMPRESSION: Single live intrauterine gestation with a mean gestational age of 33 weeks and 3 days. Reading Location: [facility]-
== END | disposition home or self-care (01) ==
LOC: US 15:35
PROVIDERS: PCP Nurse Practitioner Family; Referring Provider Advanced Practice Midwife; Visit Provider Advanced Practice Midwife
DX: O43.113 Circumvallate placenta, third trimester (principal); Z3A.31 31 weeks gestation of pregnancy
CPT/HCPCS: 76816

== ENCOUNTER → 2024-12-26 | Outpatient (CLI) | payer MEDICAID, SELFPAY ==
[2024-12-26 15:04] LABS: Absolute Lymphocyte Count 2.01 X10^3/uL (0.83-4.51); Absolute Neutrophil Count 10.1 X10^3/uL (2.0-7.7); Basophil# 0.07 X10^3/uL; Basophil% 0.5 % (0-1); Eosinophil# 0.08 X10^3/uL; Eosinophils% 0.6 % (0-5); Hematocrit 37.3 % (37-47); Hemoglobin 12.3 g/dL (12.0-15.0); Lymphocyte # 2.01 X10^3/ul (0.83-4.51); Lymphocyte % 15.3 % (19-41); Mean Corpuscular Hgb 29.5 pg (27.0-32.0); Mean Corpuscular Volume 89.4 fL (81-99); Mean Platelet Vol. 10.4 fl (6.2-12.0); Monocyte# 0.63 X10^3/uL; Monocyte% 4.8 % (0-10); NRBC Flagged by Analyzer 0 % (0-5); Neutrophil # 10.11 X10^3/uL (2.7-7.7); Neutrophil % 77.2 % (47-70); Platelet Count 340 K/mm3 (150-450); RBC Distribution Width CV 14.6 % (11.6-14.6); RBC Distribution Width SD 47.1 fl (35.1-43.9); Red Blood Count 4.17 M/mm3 (4.2-5.4); White Blood Count 13.1 K/mm3 (4.4-11.0)
[2024-12-26 15:16] LABS: Protein, Urine (Random) 28.8 mg/dL (0.0-12.0); Protein:Creat Ratio 182 mg/g CRE (0-200)
[2024-12-26 15:28] LABS: ALB/GLOB Ratio 1.2 RATIO (0.9-2.4); AST(SGOT) 12 U/L (<=31); Alanine Aminotransfer ALT/SGPT < 5 U/L (<=34); Albumin, Serum 3.7 g/dL (3.5-5.0); Alkaline Phosphatase 124 U/L (35-104); Anion Gap 12 (5-15); BUN 7 mg/dL (4-19); BUN/Creat Ratio 14.4 RATIO (10-20); Calcium,Total 9.6 mg/dL (7.6-11.0); Carbon Dioxide 21.8 mmol/L (21.0-32.0); Chloride 100 mmol/L (98-108); Creatinine, Serum 0.49 mg/dL (0.70-1.20); EST Glomerular Filtration Rate 135 (>60); Globulin 3.1 g/dL (2.2-4.2); Glucose 109 mg/dL (70-99); Protein, Total 6.8 g/dL (5.9-8.4); Sodium Level 133 mmol/L (133-145); Total Bilirubin 0.18 mg/dL (0.00-1.30)
== END | disposition home or self-care (01) ==
PROVIDERS: PCP Nurse Practitioner Family; Referring Provider Obstetrics & Gynecology; Visit Provider Obstetrics & Gynecology
DX: O16.9 Unspecified maternal hypertension, unspecified trimester (principal); Z3A.00 Weeks of gestation of pregnancy not specified
CPT/HCPCS: 36415; 80053; 82570; 84156; 85025

== ENCOUNTER → 2025-01-01 | Outpatient (CLI) | payer SELFPAY | END | disposition home or self-care (01) | PROVIDERS: PCP Nurse Practitioner Family; Referring Provider Advanced Practice Midwife; Visit Provider Advanced Practice Midwife | DX: O26.899 Other specified pregnancy related conditions, unspecified trimester (principal); R51.9 Headache, unspecified; Z3A.34 34 weeks gestation of pregnancy | CPT/HCPCS: 76819 ==

== ENCOUNTER 2025-01-08 12:36 | Outpatient (CLI) | payer SELFPAY ==
[2025-01-08] VITALS (7 sets, daily range): BP systolic 118–146; BP diastolic 59–74; PULSE 76–89; RESP 16; TEMP 36.1; O2SAT 98; BMI 47.9
--- NOTE | 2025-01-08 12:39 | US_ITS ---
PROCEDURE: OB BIOPHYSICAL PROF W/O NST 01/08/2025 REASON FOR EXAM: WELL BEING TECHNIQUE: OB BIOPHYSICAL PROF W/O NST COMPARISON: January 01, 2025. FINDINGS Number: 1 Position: Vertex Placental Position: Anterior and not low-lying. Placental Abnormalities: No evidence of previa. ESTIMATED GESTATIONAL AGE: Baseline: 35 weeks and 6 days By Ultrasound: ESTIMATED DATE OF DELIVERY: Baseline: BIOPHYSICAL ASSESSMENT: Amniotic Fluid Volume: 9.4 cm Amniotic Fluid Index: 20.5 (8-24 cm normal range) Cardiac Motion: 155 beats per minute (average) Trunk and Limb Motion: Present. MATERNAL ANATOMY: Adnexa: Neither maternal ovary is successfully identified. Biophysical profile: Breathing movements: 2 Gross body movements: 2 tone: 2 Amniotic fluid volume: 2 Total score: 8/8 US/OB Biophysical Prof W/O NST IMPRESSION: Normal biophysical profile score of 8/8 Reading Location: [place] [address]
[2025-01-08 14:56] LABS: Hematocrit 34.3 % (37-47); Hemoglobin 11.4 g/dL (12.0-15.0); Mean Corp Hgb Conc 33.2 g/dL (32-36); Mean Corpuscular Volume 88.4 fL (81-99); Mean Platelet Vol. 10.8 fl (6.2-12.0); Platelet Count 301 K/mm3 (150-450); RBC Distribution Width CV 14.7 % (11.6-14.6); RBC Distribution Width SD 47.6 fl (35.1-43.9); Red Blood Count 3.88 M/mm3 (4.2-5.4); White Blood Count 11.7 K/mm3 (4.4-11.0)
[2025-01-08 16:08] LABS: Uric Acid 4.9 mg/dL (2.6-6.0)
[2025-01-08 16:09] LABS: AST(SGOT) 12 U/L (<=31); Alanine Aminotransfer ALT/SGPT < 5 U/L (<=34); Estimated Creatinine Clearance 212.26 ml/min (50-250)
[2025-01-08 17:02] LABS: Creatinine, Urine (random) 263.00 mg/dL (28.00-217.00); Protein, Urine (Random) 25.5 mg/dL (0.0-12.0); Protein:Creat Ratio 97 mg/g CRE (0-200)
--- NOTE | 2025-01-08 19:15 | OB.TRI.NOTE ---
HPI - General General Date of Admission: 01/08/25 HPI Narrative AZAEL SULTANA, is a 24 y/o @ 35 weeks 6 days who presents to L&D with headaches. She had a bp in the office of 140/80. She states that she has had a headache on and off during the and today it is actually better than it has been. Maternal Data Information ANNA MARIE Calculator Estimated Delivery Date Method Current WG Current Estimate 02/06/25 LMP (Certain) 35w 6d Other Estimates 02/05/25 Ultrasound #1 36w 0d PFSH PFSH Medical History Seasonal allergies Hx of chlamydia infection Adopted Chlamydia infection affecting Anxiety Home Medications ?Medication ?Instructions ?Recorded ?Last Taken ?Type multivit-min no.71-iron fum 28 300 cap PO DAILY 01/11/23 08/18/23 History mg-folate no.1 1 mg-dha 300 mg capsule ([facility]) ondansetron 4 mg disintegrating 4 mg PO Q4H PRN nausea and 06/18/24 Unknown Rx tablet vomiting #60 tabs metoclopramide HCl 10 mg tablet 10 mg PO TID nausea #90 tabs 08/27/24 Unknown Rx (Reglan) 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 sensor (FreeStyle #1 ea 12/03/24 Unknown Rx Dot 3 Sensor device) 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,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,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 ea 12/03/24 Unknown Rx (FreeStyle Dot 3 [place]) metformin 1,000 mg tablet 1,000 mg PO BID #60 tabs 12/16/24 Unknown Rx insulin degludec 100 unit/mL (3 30 unit subcut QHS 01/08/25 Unknown History mL) subcutaneous pen (Tresiba FlexTouch U-100 insulin) Allergy/AdvReac Type Severity Reaction Status Date / Time adhesive tape Allergy Mild Rash Verified 01/08/25 13:48 Family History Mother Diabetes Grandfather Diabetes Surgical History History of dental surgery Social History adopted: Yes (limited family medical history known) household members: spouse, family and children number of children: 2 current occupational status: employed current occupation: [employer] current occupational exposures/hazards: No pets and animals: Yes pets and animals: dog(s) history of recent travel: No sexually active: Yes Smoking Status: Former smoker quit date: 10/30/22 how long ago did patient quit smokin year ago quit status: quit date established alcohol intake: former details: social drinking prior to substance use type: marijuana well-balanced diet: about half the time caffeine: Yes Type: carbonated beverages Number of servings: 1 eating out: 1-3 times/week during the past year weight has: increased > 10 lbs what type of physical activity do you participate in: none matt/oriental orthodox: None seatbelt use: always do you feel safe at home: Yes additional social history: Patient works at [employer]- Works at [employer] History 4 Elective abortions Hx Para 2 Spontaneous abortions 1 Hx # Term Pregnancies 2 Ectopic pregnancies Hx # Pregnancies Multiple births # of living children 2 Past Pregnancies Del. Date Name GA/Weeks Outcome Route Bth Weight Infant Gen Labor Lgth Anesthesia Del Locatn Provider FOB 07/20/20 Andre 37 live - full term vacuum 8# 11oz Male [facility] Alex 08/20/23 Radames Elizondo 38 live - full term 7lbs 8oz Male [facility] Delivery Date: 07/20/20 Last Updated by: Fadumo Johnson MD IOL pre-eclampsia VAVD triple I, shoulder dystocia Delivery Date: 08/20/23 Last Updated by: Fadumo Johnson MD secondary to shoulder dystocia with the first Visit Details Expected Delivery Route/Plan RLTCS Labor Preferences- CB/BF classes: n0 labor support person: Andre-rpt c section labor intervention preferences: [] pain management options preferred: [] cut cord/dad catch: [] : [] PP control planned: [] discussed possible routes of delivery and associated risks: [] special requests: [] Plans Covid status: [] Flu vaccine: [] Tdap vaccine: given Rhogam: na LARC form signed: yes Problem list reviewed and updated with the most current plan of care details and appropriate orders placed. Relevant counseling for the gestational age provided. Continue routine care and follow up unless otherwise noted in visit notes/problem list details OB Flowsheet Initial Weight: 247 lb Date <del>?</del> EGA Weight BP Urine Prot <del>?</del> Glucose FHR FuHt Pres Dilation <del>?</del> Effaced St Visit Note 07/03/24 <del>?</del> 8w 6d 247 lb 6 oz (+6 oz) 127/78 <del>?</del> 174 <del>?</del> KW- CRL cons with dates. accepts NIPT. KW- CRL cons with dates. accepts NIPT. planning early gct due to hx of GDM and obesity. will start asa at 12 weeks 08/01/24 <del>?</del> 13w 0d 250 lb 6 oz (+3 lb 6 oz) 124/83 Negative <del>?</del> Negative 150 <del>?</del> SM- no vb lof cramping having trouble sleeping 08/27/24 <del>?</del> 16w 5d 255 lb 4 oz (+8 lb 4 oz) 135/82 <del>?</del> 150 <del>?</del> SM- having headaches and dizziness, approve intermittent FMLA as needed for symptoms. discussed supprotive care ordered reglan. anatomy us ordered 10/02/24 <del>?</del> 21w 6d 258 lb 2 oz (+11 lb 2 oz) 122/82 <del>?</del> 150 <del>?</del> KW- no vb/cramping. +fm. no longer having headaches. US reviewed. growth US q 4 weeks- requesting to do them at [facility] because insurance lapsed. 10/31/24 <del>?</del> 26w 0d 264 lb 4 oz (+17 lb 4 oz) 129/84 Negative <del>?</del> Negative 145 <del>?</del> KW- no vb/lof/ctx. good fm. glucose info given for next visit. US scheduled for 11/1311/11/24 <del>?</del> 27w 4d 261 lb 8 oz (+14 lb 8 oz) 120/82 Negative <del>?</del> Negative 135 33 <del>?</del> KW- no vb/lof/ctx. good fm. glucose done. request for PFPT for pelvic pain. R c/s requested at 39 weeks-but wants to consider 12/11/24 <del>?</del> 31w 6d 263 lb 4 oz (+16 lb 4 oz) 124/78 Negative <del>?</del> Negative 152 34 <del>?</del> MH-NO VB, LOF. Good FM. Growth Us ordered and gave number to call. Glucose readings not brought with her but states 2 hr pp running 150s. Sees Dr Vaughan early next week to discuss insulin. 12/26/24 <del>?</del> 34w 0d 264 lb 6 oz (+17 lb 6 oz) 138/82 Trace <del>?</del> Negative 140 36 <del>?</del> SM- no vb lof good fm n oregular ctx feeling uncomfortable, going to start leave now 01/08/25 <del>?</del> 35w 6d 271 lb 4 oz (+24 lb 4 oz) 140/82 Trace <del>?</del> Negative 142 38 <del>?</del> MH-No VB, LOF. Good FM. States had normal BPP earlier today. Slight headache. Dr Vaughan increased insulin to 30 U QHS today. To [facility] for further evaluation/discussed with NORA CORMIER Constitutional Constitutional: Reports systems reviewed and no addt'l complaints, except as documented Gastrointestinal Gastrointestinal: Denies bloating, constipation, cramping, diarrhea, nausea or vomiting Genitourinary Genitourinary: Reports other Details: Denies vaginal odor, vaginal bleeding, or vaginal discharge ; Denies difficulty urinating or flank pain NST FHR Rate Baby A Baseline: 140 Variability:: Moderate Accelerations:: 15 x 15 Decelerations:: None NST Reactive:: Yes FHR Category:: Category I Assessment & Plan (1) Headache in : QUALIFIERS: Trimester: third trimester Qualified Code(s): O26.893 - Other specified related conditions, third trimester; R51.9 - Headache, unspecified (2) Gestational diabetes mellitus (GDM) affecting , antepartum: (3) Circumvallate placenta: QUALIFIERS: Trimester: third trimester Qualified Code(s): O43.113 - Circumvallate placenta, third trimester COMMENT: growth US Q4w (4) Obesity affecting : QUALIFIERS: Trimester: third trimester Obesity type affecting : unspecified obesity Qualified Code(s): O99.213 - Obesity complicating , third trimester COMMENT: HgbA1c (5) History of miscarriage, currently : (6) Anxiety: (7) Mild depression: (8) Adopted: COMMENT: limited known family history (9) Marijuana use: COMMENT: positive at NOB, encouraged cessation, pt aware of random tox screens, Pt states uses 4 days/week in morning due to lack of appetite (10) History of pre-eclampsia in prior , currently : COMMENT: asa and pre e labs (11) Hx of gestational diabetes in prior , currently : COMMENT: early 1 hour gct (12) Supervision of high-risk : QUALIFIERS: Trimester: third trimester Qualified Code(s): O09.93 - Supervision of high risk , unspecified, third trimester COMMENT: PRR, , ANNA MARIE 02[birth year], PC Radames Powell, Andre- goes by Reuben (13) : QUALIFIERS: Weeks of gestation: 35 weeks Qualified Code(s): Z3A.35 - 35 weeks gestation of COMMENT: NIPT low risk (14) Previous section: PLAN: Plan pre-e workup negative and normal bp's with exception of one in the 140's/ 70's when her child was in the room. reactive nst ok to dc to home with close office follow up Charges/Coding Multi Select Codes Urinary/Genital Urinary/Genital CPT Codes: 32005-53 non-stress test Interp
== END 2025-01-08 17:33 | disposition home or self-care (01) ==
LOC: US 14:24 → WP 14:28
PROVIDERS: PCP Nurse Practitioner Family; Referring Provider Obstetrics & Gynecology; Visit Provider Obstetrics & Gynecology
DX: O99.891 Other specified diseases and conditions complicating pregnancy (principal); R80.9 Proteinuria, unspecified; Z87.891 Personal history of nicotine dependence; N96 Recurrent pregnancy loss; O24.419 Gestational diabetes mellitus in pregnancy, unspecified control; O43.113 Circumvallate placenta, third trimester; O99.213 Obesity complicating pregnancy, third trimester; O99.343 Other mental disorders complicating pregnancy, third trimester; F41.9 Anxiety disorder, unspecified; Z3A.35 35 weeks gestation of pregnancy; F32.A Depression, unspecified; O34.219 Maternal care for unspecified type scar from previous cesarean delivery; O99.323 Drug use complicating pregnancy, third trimester; F12.99 Cannabis use, unspecified with unspecified cannabis-induced disorder; R51.9 Headache, unspecified
CPT/HCPCS: 59050; 76819; 82565; 82570; 84156; 84450; 84460; 84550; 85027; 99221; G0378

== ENCOUNTER 2025-01-13 18:37 | Outpatient (CLI) | payer SELFPAY ==
--- NOTE | 2025-01-13 19:12 | OB.TRI.HP_ITS ---
HPI - General HPI Narrative AZAEL SULTANA, is a 24 y/o @ 36 weeks 4 days who presents to L&D with possible rupture of membranes. Maternal Data Information ANNA MARIE Calculator Estimated Delivery Date Method Current WG Current Estimate 02/06/25 LMP (Certain) 36w 6d Other Estimates 02/05/25 Ultrasound #1 37w 0d PFSH PFSH Medical History Seasonal allergies Hx of chlamydia infection Adopted Chlamydia infection affecting Anxiety Home Medications ?Medication ?Instructions ?Recorded ?Last Taken ?Type multivit-min no.71-iron fum 28 300 cap PO DAILY pregna ncy 01/11/23 01/12/25 History mg-folate no.1 1 mg-dha 300 mg capsule (PNV-[place]) ondansetron 4 mg disintegrating 4 mg PO Q4H PRN nausea and 06/18/24 Unknown Rx tablet vomiting #60 tabs metoclopramide HCl 10 mg tablet 10 mg PO TID nausea #9 0 tabs 08/27/24 Unknown Rx (Reglan) 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 sensor (FreeStyle #1 ea 12/03/24 Unknown Rx Dot 3 Sensor device) 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,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,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 ea 12/03/24 Unknown Rx (FreeStyle Dto 3 [place]) insulin degludec 100 unit/mL (3 42 unit subcut QHS 04/2501/12/25 History mL) subcutaneous pen (Tresiba FlexTouch U-100 insulin) Allergy/AdvReac Type Severity Reaction Status Date / Time adhesive tape Allergy Mild Rash Verified 01/13/25 19:20 Family History Mother Diabetes Grandfather Diabetes Surgical History History of dental surgery Social History adopted: Yes (limited family medical history known) household members: spouse, family and children number of children: 2 current occupational status: employed current occupation: [employer] current occupational exposures/hazards: No pets and animals: Yes pets and animals: dog(s) history of recent travel: No sexually active: Yes Smoking Status: Former smoker quit date: 10/30/22 how long ago did patient quit smokin year ago quit status: quit date established alcohol intake: former details: social drinking prior to substance use type: marijuana well-balanced diet: about half the time caffeine: Yes Type: carbonated beverages Number of servings: 1 eating out: 1-3 times/week during the past year weight has: increased > 10 lbs what type of physical activity do you participate in: none matt/hindu: None seatbelt use: always do you feel safe at home: Yes additional social history: Patient works at [employer] Andre- Works at [employer] History 4 Elective abortions Hx Para 2 Spontaneous abortions 1 Hx # Term Pregnancies 2 Ectopic pregnancies Hx # Pregnancies Multiple births # of living children 2 Past Pregnancies Del. Date Name GA/Weeks Outcome Route Bth Weight Gen Labor Lgth Anesthesia Del Locatn Provider FOB 07/20/20 Andre 37 live - full term vacuum 8# 11oz Male [facility] Alex 08/20/23 Radames Mikhail 38 live - full term 7lbs 8oz Male [facility] Delivery Date: 07/20/20 Last Updated by: Fadumo Johnson MD IOL pre-eclampsia VAVD triple I, shoulder dystocia Delivery Date: 08/20/23 Last Updated by: Fadumo Johnson MD secondary to shoulder dystocia with the first Visit Details Expected Delivery Route/Plan RLTCS Labor Preferences- CB/BF classes: n0 labor support person: Andre-adilene c section labor intervention preferences: [] pain management options preferred: [] cut cord/dad catch: [] : [] PP control planned: [] discussed possible routes of delivery and associated risks: [] special requests: [] Plans Covid status: [] Flu vaccine: [] Tdap vaccine: given Rhogam: na LARC form signed: yes Problem list reviewed and updated with the most current plan of care details and appropriate orders placed. Relevant counseling for the gestational age provided. Continue routine care and follow up unless otherwise noted in visit notes/problem list details OB Flowsheet Initial Weight: 247 lb Date -?-?-?-?-?-?-?-?-?-?-?-?- EGA Weight BP Urine Prot -?-?-?-?-?-?-?-?-?-?-?-?- Glucose FHR FuHt Pres Dilation -?-?-?-?-?-?-?-?-?-?-?-?- Effaced St Visit Note 07/03/24 -?-?-?-?-?-?-?-?-?-?-?-?- 8w 6d 247 lb 6 oz (+6 oz) 127/78 -?-?-?-?-?-?-?--?-?-?-?-?- 174 -?-?-?-?-?-?-?-?-?-?-?-?- KW- CRL cons wit h dates. accepts NIPT. KW- CRL cons with dates. acc epts NIPT. planning early gct due to hx of GDM and obesity. will start asa at 12 weeks 08/01/24 -?-?-?-?-?-?-?-?-?-?-?-?- 13w 0d 250 lb 6 oz (+3 lb 6 oz) 124/83 Negative -?-?-?-?-?-?-?-?-?-?-?--?- Negative 150 -?-?-?-?-?-?-?-?-?-?-?-?- SM- no vb lof cr amping having trouble sleeping 08/27/24 -?-?-?-?-?-?-?-?-?-?-?-?- 16w 5d 255 lb 4 oz (+8 lb 4 oz) 135/82 -?-?-?-?-?-?-?-?-?-?-?-?- 150 -?-?-?-?-?-?-?-?-?-?-?-?- SM- having heada ches and dizziness, approve intermittent FMLA as needed for symptoms. discussed supprotive care ordered reglan. anatomy us ordered 10/02/24 -?-?-?-?-?-?-?-?-?-?-?-?- 21w 6d 258 lb 2 oz (+11 lb 2 oz) 122/82 -?-?-?-?-?-?-?-?-?-?-?-?- 150 -?-?-?-?-?-?-?-?-?-?-?-?- KW- no vb/crampi ng. +fm. no longer having headaches. US reviewed. growth US q 4 weeks- requesting to do them at [facility] because insurance lapsed. 10/31/24 -?-?-?-?-?-?-?-?-?-?-?-?- 26w 0d 264 lb 4 oz (+17 lb 4 oz) 129/84 Negative -?-?-?-?-?-?-?-?-?-?-?-?- Negative 145 -?-?-?-?-?-?-?-?-?-?-?-?- KW- no vb/lof/ct x. good fm. glucose info given for next visit. US scheduled for 11/1311/11/24 -?-?-?-?-?-?-?-?-?-?-?-?- 27w 4d 261 lb 8 oz (+14 lb 8 oz) 120/82 Negative -?-?-?-?-?-?-?-?-?-?-?-?- Negative 135 33 -?-?-?-?-?-?-?-?-?-?-?-?- KW- no vb/lof/ct x. good fm. glucose done. request for PFPT for pelvic pain. R c/s requested at 39 weeks-but wants to consider 12/11/24 -?-?-?-?-?-?-?-?-?-?-?-?- 31w 6d 263 lb 4 oz (+16 lb 4 oz) 124/78 Negative -?-?-?-?-?-?-?-?-?-?-?-?- Negative 152 34 -?-?-?-?-?-?-?-?-?-?-?-?- MH-NO VB, LOF. G ood FM. Growth Us ordered and gave number to call. Glucose readings not brought with her but states 2 hr pp running 150s. Sees Dr Vaughan early next week to discuss insulin. 12/26/24 -?-?-?-?-?-?-?-?-?-?-?-?- 34w 0d 264 lb 6 oz (+17 lb 6 oz) 138/82 Trace -?-?-?-?-?-?-?-?-?-?--?-?- Negative 140 36 -?-?-?-?-?-?-?-?-?-?-?-?- SM- no vb lof go od fm n oregular ctx feeling uncomfortable, going to start leave now 01/08/25 -?-?-?-?-?-?-?-?-?-?-?-?- 35w 6d 271 lb 4 oz (+24 lb 4 oz) 140/82 Trace -?-?-?-?-?-?-?-?-?-?-?-?- Negative 142 38 -?-?-?-?-?-?-?--?-?-?-?-?- MH-No VB, LOF. G ood FM. States had normal BPP earlier today. Slight headache. Dr Vaughan increased insulin to 30 U QHS today. To for further evaluation/discussed with NORA CORMIER Constitutional Constitutional: Reports systems reviewed and no addt'l complaints, except as documented Gastrointestinal Gastrointestinal: Denies bloating, constipation, cramping, diarrhea, nausea or vomiting Genitourinary Genitourinary: Reports other Details: Denies vaginal odor, vaginal bleeding, or vaginal discharge ; Denies difficulty urinating or flank pain NST FHR Rate Baby A Baseline: 140 Variability:: Moderate Accelerations:: 15 x 15 Decelerations:: None NST Reactive:: Yes FHR Category:: Category I Assessment & Plan (1) Headache in : QUALIFIERS: Trimester: third trimester Qualified Code(s): O26.893 - Other specified related conditions, third trimester; R51.9 - H eadache, unspecified (2) Gestational diabetes mellitus (GDM) affecting , antepartum: (3) Circumvallate placenta: QUALIFIERS: Trimester: third trimester Qualified Code(s): O43.113 - Circumvallate placenta, third trimester COMMENT: growth US Q4w (4) Obesity affecting : QUALIFIERS: Trimester: third trimester Obesity type affecting : unspecified obesity Qualified Code(s): O99.213 - Obesity complicating , third trimester COMMENT: HgbA1c (5) History of miscarriage, currently : (6) Anxiety: (7) Mild depression: (8) Adopted: COMMENT: limited known family history (9) Marijuana use: COMMENT: positive at NOB, encouraged cessation, pt aware of random tox screens, Pt states uses 4 days/week in morning due to lack of appetite (10) History of pre-eclampsia in prior , currently : COMMENT: asa and pre e labs (11) Hx of gestational diabetes in prior , currently : COMMENT: early 1 hour gct (12) Supervision of high-risk : QUALIFIERS: Trimester: third trimester Qualified Code(s): O09.93 - Supervision of high risk , unspecified, third trimester COMMENT: PRR, , ANNA MARIE 02/06/25, PC Radames Powell, Andre- goes by Reuben (13) : QUALIFIERS: Weeks of gestation: 35 weeks Qualified Code(s): Z3A.35 - 35 weeks gestation of COMMENT: NIPT low risk (14) Previous section: (15) Pelvic floor dysfunction in female: (16) Allergy to adhesive tape: PLAN: Plan false labor- rom + neg NST reactive ok to dc to home. Charges/Coding Multi Select Codes Urinary/Genital Urinary/Genital CPT Codes: 66055-92 non-stress test Interp
--- NOTE | 2025-01-13 19:12 | OB.TRI.HP_ITS ---
HPI - General HPI Narrative AZAEL SULTANA, is a 24 y/o @ 36 weeks 4 days who presents to L&D with possible rupture of membranes. Maternal Data Information ANNA MARIE Calculator Estimated Delivery Date Method Current WG Current Estimate 02/06/25 LMP (Certain) 36w 6d Other Estimates 02/05/25 Ultrasound #1 37w 0d PFSH PFSH Medical History Seasonal allergies Hx of chlamydia infection Adopted Chlamydia infection affecting Anxiety Home Medications ?Medication ?Instructions ?Recorded ?Last Taken ?Type multivit-min no.71-iron fum 28 300 cap PO DAILY pregna ncy 01/11/23 01/12/25 History mg-folate no.1 1 mg-dha 300 mg capsule (PNV-[place]) ondansetron 4 mg disintegrating 4 mg PO Q4H PRN nausea and 06/18/24 Unknown Rx tablet vomiting #60 tabs metoclopramide HCl 10 mg tablet 10 mg PO TID nausea #9 0 tabs 08/27/24 Unknown Rx (Reglan) 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 sensor (FreeStyle #1 ea 12/03/24 Unknown Rx Dot 3 Sensor device) 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,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,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 12/03/24 Unknown Rx (FreeStyle Dot 3 [place]) insulin degludec 100 unit/mL (3 42 unit subcut QHS 04/2501/12/25 History mL) subcutaneous pen (Tresiba FlexTouch U-100 insulin) Allergy/AdvReac Type Severity Reaction Status Date / Time adhesive tape Allergy Mild Rash Verified 01/13/25 19:20 Family History Mother Diabetes Grandfather Diabetes Surgical History History of dental surgery Social History adopted: Yes (limited family medical history known) household members: spouse, family and children number of children: 2 current occupational status: employed current occupation: [employer] current occupational exposures/hazards: No pets and animals: Yes pets and animals: dog(s) history of recent travel: No sexually active: Yes Smoking Status: Former smoker quit date: 10/30/22 how long ago did patient quit smokin year ago quit status: quit date established alcohol intake: former details: social drinking prior to substance use type: marijuana well-balanced diet: about half the time caffeine: Yes Type: carbonated beverages Number of servings: 1 eating out: 1-3 times/week during the past year weight has: increased > 10 lbs what type of physical activity do you participate in: none matt/confucianist: None seatbelt use: always do you feel safe at home: Yes additional social history: Patient works at [employer]- Works at [employer] History 4 Elective abortions Hx Para 2 Spontaneous abortions 1 Hx # Term Pregnancies 2 Ectopic pregnancies Hx # Pregnancies Multiple births # of living children 2 Past Pregnancies Del. Date Name GA/Weeks Outcome Route Bth Weight Gen Labor Lgth Anesthesia Del Locatn Provider FOB 07/20/20 Andre 37 live - full term vacuum 8# 11oz Male [facility] Alex 08/20/23 Radames Mikhail 38 live - full term 7lbs 8oz Male [facility] Delivery Date: 07/20/20 Last Updated by: Fadumo Johnson MD IOL pre-eclampsia VAVD triple I, shoulder dystocia Delivery Date: 08/20/23 Last Updated by: Fadumo Johnson MD secondary to shoulder dystocia with the first Visit Details Expected Delivery Route/Plan RLTCS Labor Preferences- CB/BF classes: n0 labor support person: Andre-adilene c section labor intervention preferences: [] pain management options preferred: [] cut cord/dad catch: [] : [] PP control planned: [] discussed possible routes of delivery and associated risks: [] special requests: [] Plans Covid status: [] Flu vaccine: [] Tdap vaccine: given Rhogam: na LARC form signed: yes Problem list reviewed and updated with the most current plan of care details and appropriate orders placed. Relevant counseling for the gestational age provided. Continue routine care and follow up unless otherwise noted in visit notes/problem list details OB Flowsheet Initial Weight: 247 lb Date -?-?-?-?-?-?-?-?-?-?-?-?- EGA Weight BP Urine Prot -?-?-?-?-?-?-?-?-?-?-?-?- Glucose FHR FuHt Pres Dilation -?-?-?-?-?-?-?-?-?-?-?-?- Effaced St Visit Note 07/03/24 -?-?-?-?-?-?-?-?-?-?-?-?- 8w 6d 247 lb 6 oz (+6 oz) 127/78 -?-?-?-?-?-?-?--?-?-?-?-?- 174 -?-?-?-?-?-?-?-?-?-?-?-?- KW- CRL cons wit h dates. accepts NIPT. KW- CRL cons with dates. acc epts NIPT. planning early gct due to hx of GDM and obesity. will start asa at 12 weeks 08/01/24 -?-?-?-?-?-?-?-?-?-?-?-?- 13w 0d 250 lb 6 oz (+3 lb 6 oz) 124/83 Negative -?-?-?-?-?-?-?-?-?-?-?--?- Negative 150 -?-?-?-?-?-?-?-?-?-?-?-?- SM- no vb lof cr amping having trouble sleeping 08/27/24 -?-?-?-?-?-?-?-?-?-?-?-?- 16w 5d 255 lb 4 oz (+8 lb 4 oz) 135/82 -?-?-?-?-?-?-?-?-?-?-?-?- 150 -?-?-?-?-?-?-?-?-?-?-?-?- SM- having heada ches and dizziness, approve intermittent FMLA as needed for symptoms. discussed supprotive care ordered reglan. anatomy us ordered 10/02/24 -?-?-?-?-?-?-?-?-?-?-?-?- 21w 6d 258 lb 2 oz (+11 lb 2 oz) 122/82 -?-?-?-?-?-?-?-?-?-?-?-?- 150 -?-?-?-?-?-?-?-?-?-?-?-?- KW- no vb/crampi ng. +fm. no longer having headaches. US reviewed. growth US q 4 weeks- requesting to do them at [facility] because insurance lapsed. 10/31/24 -?-?-?-?-?-?-?-?-?-?-?-?- 26w 0d 264 lb 4 oz (+17 lb 4 oz) 129/84 Negative -?-?-?-?-?-?-?-?-?-?-?-?- Negative 145 -?-?-?-?-?-?-?-?-?-?-?-?- KW- no vb/lof/ct x. good fm. glucose info given for next visit. US scheduled for 11/1311/11/24 -?-?-?-?-?-?-?-?-?-?-?-?- 27w 4d 261 lb 8 oz (+14 lb 8 oz) 120/82 Negative -?-?-?-?-?-?-?-?-?-?-?-?- Negative 135 33 -?-?-?-?-?-?-?-?-?-?-?-?- KW- no vb/lof/ct x. good fm. glucose done. request for PFPT for pelvic pain. R c/s requested at 39 weeks-but wants to consider 12/11/24 -?-?-?-?-?-?-?-?-?-?-?-?- 31w 6d 263 lb 4 oz (+16 lb 4 oz) 124/78 Negative -?-?-?-?-?-?-?-?-?-?-?-?- Negative 152 34 -?-?-?-?-?-?-?-?-?-?-?-?- MH-NO VB, LOF. G ood FM. Growth Us ordered and gave number to call. Glucose readings not brought with her but states 2 hr pp running 150s. Sees Dr Vaughan early next week to discuss insulin. 12/26/24 -?-?-?-?-?-?-?-?-?-?-?-?- 34w 0d 264 lb 6 oz (+17 lb 6 oz) 138/82 Trace -?-?-?-?-?-?-?-?-?-?--?-?- Negative 140 36 -?-?-?-?-?-?-?-?-?-?-?-?- SM- no vb lof go od fm n oregular ctx feeling uncomfortable, going to start leave now 01/08/25 -?-?-?-?-?-?-?-?-?-?-?-?- 35w 6d 271 lb 4 oz (+24 lb 4 oz) 140/82 Trace -?-?-?-?-?-?-?-?-?-?-?-?- Negative 142 38 -?-?-?-?-?-?-?--?-?-?-?-?- MH-No VB, LOF. G ood FM. States had normal BPP earlier today. Slight headache. Dr Vaughan increased insulin to 30 U QHS today. To for further evaluation/discussed with NORA CORMIER Constitutional Constitutional: Reports systems reviewed and no addt'l complaints, except as documented Gastrointestinal Gastrointestinal: Denies bloating, constipation, cramping, diarrhea, nausea or vomiting Genitourinary Genitourinary: Reports other Details: Denies vaginal odor, vaginal bleeding, or vaginal discharge ; Denies difficulty urinating or flank pain NST FHR Rate Baby A Baseline: 140 Variability:: Moderate Accelerations:: 15 x 15 Decelerations:: None NST Reactive:: Yes FHR Category:: Category I Assessment & Plan (1) Headache in : QUALIFIERS: Trimester: third trimester Qualified Code(s): O26.893 - Other specified related conditions, third trimester; R51.9 - H eadache, unspecified (2) Gestational diabetes mellitus (GDM) affecting , antepartum: (3) Circumvallate placenta: QUALIFIERS: Trimester: third trimester Qualified Code(s): O43.113 - Circumvallate placenta, third trimester COMMENT: growth US Q4w (4) Obesity affecting : QUALIFIERS: Trimester: third trimester Obesity type affecting : unspecified obesity Qualified Code(s): O99.213 - Obesity complicating , third trimester COMMENT: HgbA1c (5) History of miscarriage, currently : (6) Anxiety: (7) Mild depression: (8) Adopted: COMMENT: limited known family history (9) Marijuana use: COMMENT: positive at NOB, encouraged cessation, pt aware of random tox screens, Pt states uses 4 days/week in morning due to lack of appetite (10) History of pre-eclampsia in prior , currently : COMMENT: asa and pre e labs (11) Hx of gestational diabetes in prior , currently : COMMENT: early 1 hour gct (12) Supervision of high-risk : QUALIFIERS: Trimester: third trimester Qualified Code(s): O09.93 - Supervision of high risk , unspecified, third trimester COMMENT: PRR, , ANNA MARIE 02/06/25, PC Radames Powell, Andre- goes by Reuben (13) : QUALIFIERS: Weeks of gestation: 35 weeks Qualified Code(s): Z3A.35 - 35 weeks gestation of COMMENT: NIPT low risk (14) Previous section: (15) Pelvic floor dysfunction in female: (16) Allergy to adhesive tape: PLAN: Plan false labor- rom + neg NST reactive ok to dc to home. Charges/Coding Multi Select Codes Urinary/Genital Urinary/Genital CPT Codes: 35297-48 non-stress test Interp
[2025-01-13 19:17] VITALS: BP 128/66; PULSE 86; RESP 16; TEMP 36.4
[2025-01-13 19:19] VITALS: BMI 48.5
[2025-01-13 19:29] LABS: ROM Internal Control Test YES-OK TO RESULT pt. (Internal QC); ROM Patient Test Negative (Negative); Record Kit Lot#, ROM+ K3358
== END 2025-01-13 19:51 | disposition home or self-care (01) ==
LOC: WPOUT 18:51 → WP 18:52
PROVIDERS: PCP Nurse Practitioner Family; Referring Provider Obstetrics & Gynecology; Visit Provider Obstetrics & Gynecology
DX: O26.893 Other specified pregnancy related conditions, third trimester (principal); O24.419 Gestational diabetes mellitus in pregnancy, unspecified control; N96 Recurrent pregnancy loss; Z3A.36 36 weeks gestation of pregnancy; Z87.891 Personal history of nicotine dependence; O99.213 Obesity complicating pregnancy, third trimester; O43.113 Circumvallate placenta, third trimester; R51.9 Headache, unspecified; O34.219 Maternal care for unspecified type scar from previous cesarean delivery; O99.323 Drug use complicating pregnancy, third trimester; F12.99 Cannabis use, unspecified with unspecified cannabis-induced disorder; O99.343 Other mental disorders complicating pregnancy, third trimester; F32.A Depression, unspecified; F41.9 Anxiety disorder, unspecified
CPT/HCPCS: 59025; 59050; 84112; 99221; G0378

== ENCOUNTER → 2025-01-16 | Outpatient (CLI) | payer SELFPAY ==
--- NOTE | 2025-01-16 16:38 | US_ITS ---
PROCEDURE: OB LIMITED WITH BIOMETRICS 01/16/2025 REASON FOR EXAM: GROWTH US EVERY 4 WEEKS TECHNIQUE: OB LIMITED WITH BIOMETRICS COMPARISON: January 08, 2025 FINDINGS There is a live intrauterine . Position is cephalic, placenta is anterior not low, grade 2. Cervix is not visible. heart motion = 155 beats per minute LUCERO = 17.2 cm, max pocket = 6.0 cm. BPD = 9.22 cm, 37 weeks 3 days, 77% OFD = 11.21 cm, 37 weeks 1 day, 60% Head circumference = 32.74 cm, 37 weeks 1 day, 28% Abdominal circumference = 34.97 cm, 38 weeks 6 days, 96% Femur length = 7.11 cm, 36 weeks 3 days, 34% Estimated weight 3412 g, 83rd percentile age by current ultrasound = 37 weeks 2 days Estimated due date by current ultrasound February 04, 2025 survey was not performed. US/OB Limited With Biometrics IMPRESSION: age by current ultrasound = 37 weeks 2 days Estimated due date by current ultrasound February 04, 2025 Reading Location: [facility]
== END | disposition home or self-care (01) ==
PROVIDERS: PCP Nurse Practitioner Family; Referring Provider Obstetrics & Gynecology; Visit Provider Obstetrics & Gynecology
DX: O09.93 Supervision of high risk pregnancy, unspecified, third trimester (principal); Z3A.00 Weeks of gestation of pregnancy not specified
CPT/HCPCS: 76816; 87081

== ENCOUNTER 2025-01-22 13:33 | Outpatient (CLI) | payer SELFPAY ==
--- NOTE | 2025-01-22 13:34 | US_ITS ---
PROCEDURE: OB BIOPHYSICAL PROF W/O NST 01/22/2025 REASON FOR EXAM: WELL BEING TECHNIQUE: OB BIOPHYSICAL PROF W/O NST COMPARISON: Prior study dated January 08, 2025. FINDINGS Number: 1 Position: Vertex Placental Position: Anterior and not low-lying Placental Abnormalities: No evidence of previa. ESTIMATED GESTATIONAL AGE: Baseline: 37 weeks and 6 days Delete ESTIMATED DATE OF DELIVERY: Baseline: February 06, 2025. BIOPHYSICAL ASSESSMENT: Amniotic Fluid Volume: 6.6 cm Amniotic Fluid Index: 17 (8-24 cm normal range) Cardiac Motion: 153 beats per minute (average) Trunk and Limb Motion: Present. MATERNAL ANATOMY: Adnexa: Neither maternal ovary is successfully identified. Biophysical profile: Breathing movements: 2 Gross body movements: 2 tone: 2 Amniotic fluid volume: 2 Total score: 8/8 US/OB Biophysical Prof W/O NST IMPRESSION: Normal biophysical profile with a score of 8/8. Reading Location: [place]
--- OUTSIDE RECORDS SUMMARY | 2025-01-22 22:44 | XMS RPT_ITS | CCD ---
Author Organization [facility] Care Team Providers Care Management Professor Name Role Phone Mahnaz, Ali Alban Unavailable Unavailable *SELF, REFERRED Unavailable Unavailable Sukumar Joya Unavailable Unavailable CAROLYNE CURRY Unavailable Unavailable Michelle Roberts Unavailable Unavailable Maribel Mccabe Unavailable Unavailable Joseph INDUSTRIAL PSYCHOLOGY PROFESSOR, INDUSTRIAL PSYCHOLOGY PROFESSOR-C Bird Primary Care Provider [phone] Joseph INDUSTRIAL PSYCHOLOGY PROFESSOR, INDUSTRIAL PSYCHOLOGY PROFESSOR-C Bird Referring Provider [phone] Dr. Evelin Cardona Attending Provider Dr. Sha Vaughan Attending Provider RACHAEL Ghosh Attending Provider [phone] Dr. Fadumo Zelaya Attending Provider Joseph ZURITA, INDUSTRIAL PSYCHOLOGY PROFESSOR-C Bird Primary Care Provider [phone] Joseph ZURITA, INDUSTRIAL PSYCHOLOGY PROFESSOR-C Bird Referring Provider [phone] RACHAEL Ghosh Attending Provider Dr. Fadumo Zelaya Attending Provider Dr. Sha Vaughan Attending Provider Neymar INDUSTRIAL PSYCHOLOGY PROFESSOR, INDUSTRIAL PSYCHOLOGY PROFESSOR-C Anisa Attending Provider Joseph ZURITA, INDUSTRIAL PSYCHOLOGY PROFESSOR-C Bird Primary Care Provider Joseph ZURITA, INDUSTRIAL PSYCHOLOGY PROFESSOR-C Bird Referring Provider RACHAEL Ghosh Attending Provider [phone] Joseph INDUSTRIAL PSYCHOLOGY PROFESSOR, INDUSTRIAL PSYCHOLOGY PROFESSOR-C Bird Primary Care Provider Joseph INDUSTRIAL PSYCHOLOGY PROFESSOR, INDUSTRIAL PSYCHOLOGY PROFESSOR-C Bird Referring Provider [phone] Dr. Fadumo Zelaya Attending Provider Dr. Evelin Cardona Attending Provider [phone] Dr. Evelin Cardona Referring Provider [phone] Dr. Evelin Cardona Other Provider Dr. Fadumo Zelaya Admit Provider [phone] Dr. Fadumo Zelaya Other Provider [phone] JOSEPH, BIRD CERVANTES Primary Care Unavailable JOSEPH, BIRD HALAL BUTCHER Consulting Unavailable JOSEPH, BIRD HALAL BUTCHER Attending Unavailable JOSEPH, BIRD HALAL BUTCHER Admitting Unavailable PROVIDER, UNKNOWN Consulting Unavailable PROVIDER, UNKNOWN Consulting Unavailable JOSEPH, BIRD HALAL BUTCHER Primary Care Unavailable JOSEPH, BIRD HALAL BUTCHER Consulting Unavailable JOSEPH, BIRD HALAL BUTCHER Attending Unavailable JOSEPH, BIRD HALAL BUTCHER Admitting Unavailable PROVIDER, UNKNOWN Consulting Unavailable PROVIDER, UNKNOWN Consulting Unavailable JOSEPH, BIRD HALAL BUTCHER Primary Care Unavailable JOSEPH, BIRD HALAL BUTCHER Consulting Unavailable JOSEPH, BIRD HALAL BUTCHER Attending Unavailable JOSEPH, BIRD HALAL BUTCHER Admitting Unavailable PROVIDER, UNKNOWN Consulting Unavailable PROVIDER, UNKNOWN Consulting Unavailable Joseph INDUSTRIAL PSYCHOLOGY PROFESSOR-C, Bird Primary Care Provider Marietta Ghosh CNM Attending Provider [phone] Marietta Ghosh CNM Referring Provider [phone] Joseph INDUSTRIAL PSYCHOLOGY PROFESSOR-C, Bird Referring Provider Dr. Fadumo Zelaya MD Attending Provider Neymar INDUSTRIAL PSYCHOLOGY PROFESSOR-CAnisa Attending Provider [phone] Neymar INDUSTRIAL PSYCHOLOGY PROFESSOR-CAnisa Referring Provider [phone] BIRD RUIZ Primary Care Unavailable FADUMO ZELAYA Referring Unavailabl e FADUMO ZELAYA Attending Unavailabl e FADUMO ZELAYA Attending Unavailabl e BIRD RUIZ Primary Care Unavailable FADUMO ZELAYA Referring Unavailabl e Joseph INDUSTRIAL PSYCHOLOGY PROFESSOR-C, Bird Primary Care Provider [phone] Joseph ZURITA-CBird Referring Provider Dr. Fadumo Zelaya MD Attending Provider Marietta Ghosh CNM Attending Provider [phone] Dr. Sha Vaughan MD Attending Provider Augie CNM, [place] Referring Provider [phone] Joseph INDUSTRIAL PSYCHOLOGY PROFESSOR-C, Bird Primary Care Provider [phone] Joseph INDUSTRIAL PSYCHOLOGY PROFESSOR-C, Bird Referring Provider [phone] Alex LUNA, Dr. Thorne Attending Provider Alex LUNA, Dr. Thorne Referring Provider [phone] Alex LUNA, Dr. Thorne Other Provider [phone] Pooja Porter DO, Dr. Waters Attending Provider Pooja Porter DO, Dr. Waters Other Provider [phone] Pooja Porter DO, Dr. Waters Referring Provider Joseph INDUSTRIAL PSYCHOLOGY PROFESSOR, Bird Referring Unavailable Joseph INDUSTRIAL PSYCHOLOGY PROFESSOR, Bird Primary Care Unavailable [place] Ghosh Attending Unavailable Joseph INDUSTRIAL PSYCHOLOGY PROFESSOR, Bird Referring Unavailable Joseph INDUSTRIAL PSYCHOLOGY PROFESSOR, Bird Primary Care Unavailable [place] Ghosh Attending Unavailable MarcanthonyReddyon Referring Unavailable MarcanthonyFadumo Consulting Unavailable Joseph INDUSTRIAL PSYCHOLOGY PROFESSOR, Bird Primary Care Unavailable Vande Velsergio Evelin Attending Unavailabl e Vande Velde, Evelin Consulting Unavailabl e Joseph INDUSTRIAL PSYCHOLOGY PROFESSOR, Bird Referring Unavailable Joseph INDUSTRIAL PSYCHOLOGY PROFESSOR, Bird Primary Care Unavailable Augie [place] Attending Unavailable Marcanthony, Fadumo Referring Unavailable Joseph INDUSTRIAL PSYCHOLOGY PROFESSOR, Bird Primary Care Unavailable Fadumo Zelaya Attending Unavailable Fadumo Zelaya Referring Unavailable Joseph INDUSTRIAL PSYCHOLOGY PROFESSOR, Bird Primary Care Unavailable Fadumo Zelaya Attending Unavailable Joseph INDUSTRIAL PSYCHOLOGY PROFESSOR, Bird Primary Care Unavailable Augie [place] Referring Unavailable Augie [place] Attending Unavailable Joseph INDUSTRIAL PSYCHOLOGY PROFESSOR, Bird Primary Care Unavailable Vande Velde, Evelin Attending Unavailabl e Vande Velde, Evelin Referring Unavailabl e Vande Velde, Evelin Consulting Unavailabl e Joseph INDUSTRIAL PSYCHOLOGY PROFESSOR, Bird Referring Unavailable Joseph INDUSTRIAL PSYCHOLOGY PROFESSOR, Bird Primary Care Unavailable Neymar INDUSTRIAL PSYCHOLOGY PROFESSOR, Anisa Attending Unavailable Joseph INDUSTRIAL PSYCHOLOGY PROFESSOR, Bird Referring Unavailable Joseph INDUSTRIAL PSYCHOLOGY PROFESSOR, Bird Primary Care Unavailable [place] INDUSTRIAL PSYCHOLOGY PROFESSOR, Anisa Attending Unavailable Joseph INDUSTRIAL PSYCHOLOGY PROFESSOR, Bird Referring Unavailable Marcanthony, Fadumo Attending Unavailable Joseph INDUSTRIAL PSYCHOLOGY PROFESSOR, Bird Primary Care Unavailable Joseph INDUSTRIAL PSYCHOLOGY PROFESSOR, Bird Referring Unavailable MykeanthonyReddyon Attending Unavailable Joseph INDUSTRIAL PSYCHOLOGY PROFESSOR, Bird Primary Care Unavailable Marcanthony, Fadumo Attending Unavailable Joseph INDUSTRIAL PSYCHOLOGY PROFESSOR, Bird Referring Unavailable Joseph INDUSTRIAL PSYCHOLOGY PROFESSOR, Bird Primary Care Unavailable Augie, [place] Attending Unavailable Augie, [place] Referring Unavailable Joseph INDUSTRIAL PSYCHOLOGY PROFESSOR, Bird Primary Care Unavailable Augie, [place] Attending Unavailable Aguie, [place] Referring Unavailable Joseph INDUSTRIAL PSYCHOLOGY PROFESSOR, Bird Primary Care Unavailable Marcanthony, Fadumo Consulting Unavailable Joseph INDUSTRIAL PSYCHOLOGY PROFESSOR, Bird Primary Care Unavailable Augie, [place] Attending Unavailable Augie, [place] Referring Unavailable Marcanthony, Fadumo Attending Unavailable Marcanthony, Fadumo Referring Unavailable Joseph INDUSTRIAL PSYCHOLOGY PROFESSOR, Bird Primary Care Unavailable Joseph INDUSTRIAL PSYCHOLOGY PROFESSOR, Bird Primary Care Unavailable [place] INDUSTRIAL PSYCHOLOGY PROFESSOR, Anisa Attending Unavailable Neymar INDUSTRIAL PSYCHOLOGY PROFESSOR, Anisa Referring Unavailable Joseph INDUSTRIAL PSYCHOLOGY PROFESSOR, Bird Referring Unavailable Augie, [place] Attending Unavailable Joseph INDUSTRIAL PSYCHOLOGY PROFESSOR, Bird Primary Care Unavailable Joseph INDUSTRIAL PSYCHOLOGY PROFESSOR, Bird Primary Care Unavailable Pooja Porter, Evelin Attending Unavailabl e Nicolee Velde, Evelin Referring Unavailabl e Marcanthony, Fadumo Referring Unavailable Marcanthony, Fadumo Consulting Unavailable Joseph INDUSTRIAL PSYCHOLOGY PROFESSOR, Bird Primary Care Unavailable Pooja Porter, Evelin Attending Unavailabl e Joseph INDUSTRIAL PSYCHOLOGY PROFESSOR, Bird Referring Unavailable Joseph INDUSTRIAL PSYCHOLOGY PROFESSOR, Bird Primary Care Unavailable Neymar INDUSTRIAL PSYCHOLOGY PROFESSOR, Anisa Attending Unavailable Joseph INDUSTRIAL PSYCHOLOGY PROFESSOR, Bird Referring Unavailable Joseph INDUSTRIAL PSYCHOLOGY PROFESSOR, Bird Primary Care Unavailable Marcanthony, Fadumo Attending Unavailable Joseph INDUSTRIAL PSYCHOLOGY PROFESSOR, Bird Referring Unavailable Joseph INDUSTRIAL PSYCHOLOGY PROFESSOR, Bird Primary Care Unavailable Augie, [place] Attending Unavailable Joseph INDUSTRIAL PSYCHOLOGY PROFESSOR, Bidr Referring Unavailable Joseph INDUSTRIAL PSYCHOLOGY PROFESSOR, Bird Primary Care Unavailable Sha Vaughan Attending Unavailable Joseph INDUSTRIAL PSYCHOLOGY PROFESSOR, Bird Referring Unavailable Joseph INDUSTRIAL PSYCHOLOGY PROFESSOR, Bird Primary Care Unavailable Arturo Valentine Attending Unavailable Allergies Allergy Classification Reported Allergen(s) Allergy Type Date of Onset Reaction(s) Facility (15 sources) Adhesive Tape; Translations: [adhesive tape] Allergy to substance 11-11-2024 [facility] Comment on above: mepilex dressing Medications Current Medications Medication Drug Class(es) Dates Sig (Normalized) Sig (Original) Blood-Glucose Meter (11 sources) Start: 02-08-2023 Blood-Glucose Meter Active 0 .MEDSUPPLY 1 February 07, 2023 11:00pm As directed- Test fasting and 2 hours after meals Start: 02-08-2023 Blood-Glucose Meter Active 0 .MEDSUPPLY 1 February 08, 2023 12:00am As directed- Test fasting and 2 hours after meals Blood-Glucose Sensor (Freest yle Dot 3 Sensor) device (20 sources) Start: 12-03-2024 Blood-Glucose Sensor (Freestyle Dot 3 Sensor) device Active 0 .Route 1 8 December 03, 2024 12:00am As directed Start: 12-03-2024 Blood-Glucose Sensor (Freestyle Dot 3 Sensor) device Active 0 .Route 1 December 03, 2024 12:00am As directed Start: 02-13-2023 End: 09-04-2023 Blood-Glucose Sensor (Freest yle Dot 3 Sensor) device Discontinued 0 .Route 2 February 13, 2023 12:00am September 04, 2023 11:00am As directed Start: 02-13-2023 End: 09-04-2023 Blood-Glucose Sensor (Freest yle Dot 3 Sensor) device Discontinued 0 .Route 2 February 13, 2023 12:00am September 04, 2023 11:00am As directed Start: 02-13-2023 Blood-Glucose Sensor (Freestyle Dot 3 Sensor) device Active 0 .Route 2 February 12, 2023 11:00pm As directed Start: 02-13-2023 Blood-Glucose Sensor (Freestyle Dot 3 Sensor) device Active 0 .Route 2 February 13, 2023 12:00am As directed Blood-Glucose,Cooperative Manager,Cont (Freestyle Dot 3 Jenners) misc (12 sources) Start: 12-03-2024 Blood-Glucose,Cooperative Manager,Cont (Freestyle Dot 3 Jenners) misc Active 0 .Route 1 0 December 03, 2024 12:00am As directed Start: 12-03-2024 Blood-Glucose, Cooperative Manager,Cont (Freestyle Dot 3 Jenners) misc Active 0 .Route 1 December 03, 2024 12:00am As directed Insulin Degludec (Tresiba Flextouch U-100) 100 unit/mL (3 mL) insulin pen (10 sources) Start: 01-16-2025 Insulin Deglud ec (Tresiba Flextouch U-100) 100 unit/mL (3 mL) insulin pen Active 46 U SC AT BEDTIME January 16, 2025 4:07pm Start: 01-08-2025 End: 01-16-2025 Insulin Degludec (Tresiba Fl extouch U-100) 100 unit/mL (3 mL) insulin pen Discontinued 42 U SC AT BEDTIME January 08, 2025 12:00am January 16, 2025 4:07pm Start: 01-08-2025 Insulin Deglud ec (Tresiba Flextouch U-100) 100 unit/mL (3 mL) insulin pen Active 42 U SC AT BEDTIME January 08, 2025 12:00am Start: 01-08-2025 Insulin Deglud ec (Tresiba Flextouch U-100) 100 unit/mL (3 mL) insulin pen Active 30 U SC AT BEDTIME January 08, 2025 12:00am metoclopramide 10 mg oral tablet (14 sources) Dopamine-2 Receptor Antagonist Start: 08-27-2024 take 5 tablets by mouth three times daily as needed Metoclopramide Hcl (Reglan) 10 mg tablet Active 10 mg PO THREE TIMES A DAY August 27, 2024 1:00am nausea take as needed for headaches with 1000mg of tylenol and 50 mg of caffeine Mv-Mins 18-Ywwy-Uywoz No.1-Dha (Pnv-Clothier) 28-1-300 mg capsule (20 sources) Start: 01-11-2023 Mv-Mins 49-Nwrw-Enkhe No.1-Dha (Pnv-Clothier) 28-1-300 mg capsule Active 300 NMA PO DAILY January 11, 2023 12:00am Start: 01-11-2023 Mv-Mins 71-Iro n-Folic No.1-Dha (Pnv-Clothier) 28-1-300 mg capsule Active 300 NMA PO DAILY January 11, 2023 12:00am Start: 01-11-2023 take 1 capsule by mo uth once daily Mv-Mins 78-Cmco-Kkhzb No.1-Dha (Pnv-Clothier) 28-1-300 mg capsule Active 300 CAP PO DAILY January 10, 2023 11:00pm Start: 01-11-2023 take 1 capsule by mouth once M v-Mins 81-Uyhp-Bamhf No.1-Dha (Pnv-Clothier) 28-1-300 mg capsule Active CAP PO January 10, 2023 11:00pm Start: 01-11-2023 take 1 capsule by mouth once M v-Mins 40-Gxmq-Frqyp No.1-Dha (Pnv-Clothier) 28-1-300 mg capsule Active CAP PO January 11, 2023 12:00am ondansetron 4 mg disintegrating oral tablet (20 sources) Serotonin-3 Receptor Antagonist Start: 06-18-2024 take 1 tablet by mouth every four hours as needed for nausea and vomiting Ondansetron 4 mg tablet,disintegrating Active 4 mg PO Q4H as needed for nausea and vomiting 60 2 June 18, 2024 1:00am Start: 08-23-2023 End: 09-04-2023 take 1 tablet by mouth every eight hours Ondansetron Hcl 4 mg tablet Discontinued 4 mg PO Q8H 30 August 23, 2023 4:12pm September 04, 2023 11:00am N/V Start: 07-24-2017 End: 01-01-2020 take 1 tablet by mouth every eight hours as needed for nausea Ondansetron 4 MG tablet Discontinued 4 mg PO EVERY 8 HOURS NEEDED as needed for Nausea July 24, 2017 1:00am January 01, 2020 1:30pm Completed/Discontinued Medications Medication Drug Class(es) Dates Sig (Normalized) Sig (Original) acetaminophen 500 mg oral tablet (20 sources) Start: 07-06-2020 End: 08-16-2020 take 1-10 tablets by mouth every six hours as needed for pain Acetaminophen 500 MG tablet Discontinued 1000 mg PO EVERY 6 HOURS NEEDED as needed for Pain 1-10 Or Fever July 06, 2020 1:00am August 16, 2020 3:35pm Start: 07-06-2020 End: 08-16-2020 take 1000 mg by mouth every six hours as needed Acetaminophen Discontinued 1000 MG PO EVERY 6 HOURS NEEDED July 06, 2020 12:00am August 16, 2020 2:35pm aspirin 81 mg delayed release oral tablet (20 sources) Platelet Aggregation Inhibitor, Nonsteroidal Anti-inflammatory Drug Start: 01-25-2023 End: 09-04-2023 take 1 tablet by mouth once daily Aspirin 81 mg tablet,delayed release (DR/EC) Discontinued 81 mg PO DAILY 90 3 January 25, 2023 12:00am September 04, 2023 11:00am pre-e prevention azithromycin 500 mg oral tablet (20 sources) Macrolide Antimicrobial Start: 01-29-2023 End: 02-13-2023 Azithromycin 500 mg tablet Discontinued 1000 mg PO .COMPLEX 2 0 February 07, 2023 1:17pm February 13, 2023 8:39am 1 dose. Start: 01-29-2023 End: 02-13-2023 Azithromycin Discontinued 10 00 MG PO .COMPLEX 2 February 07, 2023 12:17pm February 13, 2023 7:39am 1 dose. betamethasone 0.5 mg/ml / clotrimazole 10 mg/ml topical cream (14 sources) Azole Antifungal, Corticosteroid Start: 09-04-2023 End: 06-30-2024 Clotrimazole-Betamethasone 1-0.05 % cream Discontinued 1 NMA TOPICAL TWICE A DAY 45 14 September 04, 2023 1:00am June 30, 2024 12:21pm Blood-Glucose Meter misc (14 sources) Start: 02-08-2023 End: 09-04-2023 Blood-Glucose Meter misc Discontinued 0 .MEDSUPPLY 1 0 February 08, 2023 12:00am September 04, 2023 11:00am As directed- Test fasting and 2 hours after meals Start: 02-08-2023 End: 09-04-2023 Blood-Glucose Meter misc Dis continued 0 .MEDSUPPLY 1 February 08, 2023 12:00am September 04, 2023 11:00am As directed- Test fasting and 2 hours after meals Flash Glucose Scanning Reade r (Freestyle Dot 2 Jenners) misc (13 sources) Start: 11-12-2024 End: 12-16-2024 Flash Glucose Scanning Reade r (Freestyle Dot 2 Jenners) misc Discontinued 0 .Route 1 0 November 12, 2024 12:00am December 16, 2024 10:41am As directed Start: 11-12-2024 End: 12-16-2024 Flash Glucose Scanning Reade r (Freestyle Dot 2 Jenners) misc Discontinued 0 .Route 1 November 12, 2024 12:00am December 16, 2024 10:41am As directed Start: 11-12-2024 Flash Glucose Scanning Jenners (Freestyle Dot 2 Jenners) misc Active 0 .Route 1 November 12, 2024 12:00am As directed Flash Glucose Sensor (Freest yle Dot 2 Sensor) kit (13 sources) Start: 11-12-2024 End: 12-16-2024 Flash Glucose Sensor (Freest yle Dot 2 Sensor) kit Discontinued 0 .Route 1 0 November 12, 2024 12:00am December 16, 2024 10:41am As directed Start: 11-12-2024 End: 12-16-2024 Flash Glucose Sensor (Freest yle Dot 2 Sensor) kit Discontinued 0 .Route 1 November 12, 2024 12:00am December 16, 2024 10:41am As directed Start: 11-12-2024 Flash Glucose Sensor (Freestyle Dot 2 Sensor) kit Active 0 .Route 1 November 12, 2024 12:00am As directed 3 ml insulin degludec 200 unt/ml pen injector (20 sources) Insulin Analog Start: 02-13-2023 End: 03-23-2023 Insulin Degludec (Tresiba Flextouch U-200) 200 unit/mL (3 mL) insulin pen Discontinued 40 U SC DAILY 03 07February 13, 2023 12:00am March 23, 2023 2:13pm Insulin Degludec (Tresiba Flextouch U-200) 200 unit/mL (3 mL) insulin pen (20 sources) Start: 08-14-2023 End: 09-04-2023 Insulin Degludec (Tresiba Flextouch U-200) 200 unit/mL (3 mL) insulin pen Discontinued 60 U SC DAILY August 14, 2023 12:22pm September 04, 2023 11:00am gestational diabetes 60 units HS Start: 08-14-2023 End: 09-04-2023 Insulin Degludec (Tresiba Fl extouch U-200) 200 unit/mL (3 mL) insulin pen Discontinued 60 U SC DAILY August 14, 2023 12:22pm September 04, 2023 11:00am 60 units HS Start: 08-14-2023 Insulin Deglud ec (Tresiba Flextouch U-200) 200 unit/mL (3 mL) insulin pen Active 60 UNIT SC DAILY August 14, 2023 11:22am 60 units HS Start: 08-03-2023 End: 08-14-2023 Insulin Degludec (Tresiba Fl extouch U-200) 200 unit/mL (3 mL) insulin pen Discontinued 55 U SC DAILY August 03, 2023 2:21pm August 14, 2023 12:22pm Start: 08-03-2023 End: 08-14-2023 Insulin Degludec (Tresiba Fl extouch U-200) 200 unit/mL (3 mL) insulin pen Discontinued 55 UNIT SC DAILY August 03, 2023 1:21pm August 14, 2023 11:22am Start: 08-03-2023 Insulin Deglud ec (Tresiba Flextouch U-200) 200 unit/mL (3 mL) insulin pen Active 55 UNIT SC DAILY August 03, 2023 1:21pm Start: 06-06-2023 End: 08-03-2023 Insulin Degludec (Tresiba Fl extouch U-200) 200 unit/mL (3 mL) insulin pen Discontinued 36 U SC DAILY June 06, 2023 2:40pm August 03, 2023 2:21pm Start: 06-06-2023 End: 08-03-2023 Insulin Degludec (Tresiba Fl extouch U-200) 200 unit/mL (3 mL) insulin pen Discontinued 36 UNIT SC DAILY June 06, 2023 1:40pm August 03, 2023 1:21pm Start: 06-06-2023 Insulin Deglud ec (Tresiba Flextouch U-200) 200 unit/mL (3 mL) insulin pen Active 36 UNIT SC DAILY June 06, 2023 1:40pm Start: 03-23-2023 End: 06-06-2023 Insulin Degludec (Tresiba Fl extouch U-200) 200 unit/mL (3 mL) insulin pen Discontinued 28 U SC DAILY March 23, 2023 2:13pm June 06, 2023 2:41pm Start: 03-23-2023 End: 06-06-2023 Insulin Degludec (Tresiba Fl extouch U-200) 200 unit/mL (3 mL) insulin pen Discontinued 28 UNIT SC DAILY March 23, 2023 1:13pm June 06, 2023 1:41pm Start: 03-23-2023 Insulin Deglud ec (Tresiba Flextouch U-200) 200 unit/mL (3 mL) insulin pen Active 28 UNIT SC DAILY March 23, 2023 2:13pm metFORMIN hydrochloride 1000 mg oral tablet (11 sources) Biguanide Start: 12-16-2024 End: 01-13-2025 take 1 tablet by mouth twice daily Metformin 1,000 mg tablet Discontinued 1000 mg PO TWICE A DAY 60 1 December 16, 2024 12:00am January 13, 2025 7:22pm naproxen 500 mg oral tablet (20 sources) Nonsteroidal Anti-inflammatory Drug Start: 03-11-2024 End: 06-30-2024 take 1 tablet by mouth twice daily as needed for pain Naproxen 500 mg tablet Discontinued 500 mg PO TWICE A DAY as needed for pain 28 0 March 11, 2024 12:00am June 30, 2024 12:22pm Start: 07-22-2020 End: 08-16-2020 take 250-500 mg by mouth every eight hours as needed for pain Naproxen 250 MG tablet Discontinued 250 - 500 mg PO EVERY 8 HOURS NEEDED as needed for MILD PAIN 30 1 July 22, 2020 1:00am August 16, 2020 3:35pm oxyCODONE hydrochloride 5 mg oral tablet (20 sources) Opioid Agonist Start: 08-21-2023 End: 09-04-2023 take 5-10 mg by mouth every four hours as needed for pain Oxycodone 5 mg Tablet Discontinued 5 - 10 mg PO EVERY 4 HOURS NEEDED as needed for Pain Score 6-10 10 3 0 August 21, 2023 September 04, 2023 11:00am delivery delivered Encounter for delivery without indication Start: 07-07-2020 End: 08-16-2020 take 1 capsule by mouth every six hours as needed for pain Oxycodone 5 mg capsule Discontinued 5 mg PO EVERY 6 HOURS as needed for pain 15 0 July 07, 2020 August 16, 2020 3:35pm Pediatric Yvzlyypz-Vwtu-Mgd (Flintstones Complete (Iron)) tablet,chewable (20 sources) Start: 03-24-2020 End: 04-26-2020 Pediatric Jcaebznk-Qaol-Ssf (Flintstones Complete (Iron)) tablet,chewable Discontinued 2 {tbl} PO DAILY 90 3 March 24, 2020 12:00am April 26, 2020 1:40pm administer with a meal Start: 03-24-2020 End: 04-26-2020 Pediatric Aygerzvf-Mucs-Xcb (Flintstones Complete (Iron)) tablet,chewable Discontinued 2 {tbl} PO DAILY March 24, 2020 12:00am April 26, 2020 1:40pm administer with a meal Start: 03-24-2020 End: 04-26-2020 take 2 tablets by mouth once daily Pediatric Gfzsrmrw-Pnlc-Oja (Flintstones Complete (Iron)) tablet,chewable Discontinued 2 TABLET PO DAILY March 23, 2020 11:00pm April 26, 2020 12:40pm administer with a meal Start: 03-24-2020 End: 04-26-2020 take 2 tablets by mouth once daily Pediatric Hrmqeccp-Zjan-Bgf (Flintstones Complete (Iron)) tablet,chewable Discontinued 2 TABLET PO DAILY March 24, 2020 12:00am April 26, 2020 1:40pm administer with a meal Pnv #09-Volo-Auvdm Acid-Omeg a3 30 mg iron-10 mg iron-1 mg capsule (20 sources) Start: 04-26-2020 End: 08-16-2020 Pnv #68-Dfam-Atkcw Acid-Omeg a3 30 mg iron-10 mg iron-1 mg capsule Discontinued 1 NMA PO DAILY April 26, 2020 12:00am August 16, 2020 3:35pm vitamin Start: 04-26-2020 End: 08-16-2020 Pnv #75-Utte-Prghw Acid-Omeg a3 30 mg iron-10 mg iron-1 mg capsule Discontinued 1 NMA PO DAILY April 26, 2020 12:00am August 16, 2020 3:35pm Start: 01-19-2020 End: 01-30-2020 Pnv #91-Qvyq-Wrdyq Acid-Omeg a3 30 mg iron-10 mg iron-1 mg capsule Discontinued 1 NMA PO daily 30 06January 19, 2020 1:47pm January 30, 2020 1:50pm Start: 01-19-2020 End: 01-30-2020 Pnv #04-Cbtj-Jikxn Acid-Omeg a3 30 mg iron-10 mg iron-1 mg capsule Discontinued 1 NMA PO daily January 19, 2020 1:47pm January 30, 2020 1:50pm Start: 01-01-2020 End: 01-19-2020 Pnv #23-Exfi-Qskvl Acid-Omeg a3 30 mg iron-10 mg iron-1 mg capsule Discontinued NMA PO January 01, 2020 12:00am January 19, 2020 1:48pm [id number] 400 mcg-om3 35 mg-dha 25 mg-epa 5 mg-fish oil chewable tablet (12 sources) Start: 01-30-2020 End: 03-24-2020 take 2 tablets by mouth once daily [id number] 400 mcg-om3 35 mg-dha 25 mg-epa 5 mg-fish oil chewable tablet Discontinued 2 TABLET PO DAILY 60 January 29, 2020 11:00pm March 24, 2020 12:38pm Start: 01-30-2020 End: 03-24-2020 take 2 tablets by mouth once daily [id number] 400 mcg-om3 35 mg-dha 25 mg-epa 5 mg-fish oil chewable tablet Discontinued 2 TABLET PO DAILY 60 January 30, 2020 12:00am March 24, 2020 1:38pm Njr88-Ay-Gr1-Umc-Nph-Bvuq Oi l ( Gummy) 400 mcg-35 mg -25 mg-5 mg tablet,chewable (14 sources) Start: 01-30-2020 End: 03-24-2020 Wwt53-Xo-Sl0-Pdt-Kne-Qujv Oi l ( Gummy) 400 mcg-35 mg -25 mg-5 mg tablet,chewable Discontinued 2 {tbl} PO DAILY 60 January 30, 2020 12:00am March 24, 2020 1:38pm Start: 01-30-2020 End: 03-24-2020 Mjy56-Yo-Vz1-Gyw-Fgk-Aczy Oi l ( Gummy) 400 mcg-35 mg - 25 mg-5 mg tablet,chewable Discontinued 2 {tbl} PO DAILY 60 January 30, 2020 12:00am March 24, 2020 1:38pm vitamin#30 30 mg iron-10 mg iron-folic acid 1 mg-omg3 capsule (20 sources) Start: 04-26-2020 End: 08-16-2020 take 1 capsule by mouth once daily vitamin#30 30 mg iron-10 mg iron-folic acid 1 mg-omg3 capsule Discontinued 1 CAP PO DAILY April 25, 2020 11:00pm August 16, 2020 2:35pm Start: 04-26-2020 End: 08-16-2020 take 1 capsule by mouth once daily vitamin#30 30 mg iron-10 mg iron-folic acid 1 mg-omg3 capsule Discontinued 1 CAP PO DAILY April 26, 2020 12:00am August 16, 2020 3:35pm Start: 01-19-2020 End: 01-30-2020 take 1 capsule by mouth once daily vitamin#30 30 mg iron-10 mg iron-folic acid 1 mg-omg3 capsule Discontinued 1 CAP PO daily January 19, 2020 12:47pm January 30, 2020 12:50pm Start: 01-19-2020 End: 01-30-2020 take 1 capsule by mouth once daily vitamin#30 30 mg iron-10 mg iron-folic acid 1 mg-omg3 capsule Discontinued 1 CAP PO daily January 19, 2020 1:47pm January 30, 2020 1:50pm Start: 01-01-2020 End: 01-19-2020 vitamin#30 30 mg ir on-10 mg iron-folic acid 1 mg-omg3 capsule Discontinued CAP PO December 31, 2019 11:00pm January 19, 2020 12:48pm Start: 01-01-2020 End: 01-19-2020 vitamin#30 30 mg ir on-10 mg iron-folic acid 1 mg-omg3 capsule Discontinued CAP PO January 01, 2020 12:00am January 19, 2020 1:48pm promethazine hydrochloride 25 mg oral tablet (20 sources) Phenothiazine Start: 08-01-2024 End: 10-02-2024 take 1 tablet by mouth every six hours as needed for headache Promethazine 25 mg tablet Discontinued 25 mg PO EVERY 6 HOURS as needed for headache 60 2 August 01, 2024 1:00am October 02, 2024 2:59pm Start: 01-25-2023 End: 02-24-2023 take 1-2 tablets by mouth every six hours as needed for nausea Promethazine 12.5 mg tablet Discontinued 12.5 mg PO EVERY 6 HOURS as needed for nausea 120 30 0 January 25, 2023 12:00am February 23, 2023 12:00am February 24, 2023 12:10am 1-2 tabs every 6 hours as needed for nausea Start: 01-01-2020 End: 03-15-2020 take 1 tablet by mouth every six hours as needed for nausea and vomiting Promethazine 12.5 mg tablet Discontinued 12.5 mg PO EVERY 6 HOURS as needed for nausea and vomiting 60 2 January 01, 2020 12:00am March 15, 2020 8:44am Problems Active Problems Problem Classification Problem Date Documented Date Episodic/Chronic Abdominal pain (1 source) Pelvic and perineal pain; Translations: [Pelvic and perineal pain] Onset: 12-26-2024 Episodic Administrative/social admission (20 sources) Adopted; Translations: [Encounter for adoption services] Onset: 06-13-2024 01-11-2023 Episodic Comment on above: limited known family history Allergic reactions (20 sources) Allergy to adhesive agent; Translations: [Other nonmedicinal substance allergy status] Onset: 01-16-2025 08-23-2023 Episodic Anxiety disorders (20 sources) Anxiety; Translations: [Anxiety disorder, unspecified] Onset: 01-16-2025 06-30-2024 Chronic Calculus of urinary tract (20 sources) Kidney stone; Translations: [Calculus of kidney] 07-07-2021 Episodic Comment on above: triage 07/06 suspected given 10 percocet script to fill PRN Conditions associated with dizziness or vertigo (14 sources) Lightheadedness; Translations: [Dizziness and giddiness] 06-30-2024 Episodic Diabetes or abnormal glucose tolerance complicating ; childbirth; or the puerperium (1 source) Pre-existing diabetes mellitus in ; Translations: [Unspecified pre-existing diabetes mellitus in , first trimester] 02-08-2023 Chronic Diabetes or abnormal glucose tolerance complicating ; childbirth; or the puerperium (20 sources) Gestational diabetes mellitus; Translations: [Gestational diabetes mellitus in , unspecified control] Onset: 01-16-2025 02-13-2023 Episodic Comment on above: primary csection 08/02 9 @ 7:15 with SMon insulin started at 11 weeks.2 hour GTT recommended and ordered. testing 4 QID, nutri tion consult continuous monitorin g/seeing Dr Vaughan. nutrition consult on NPH insulin at [facility]. discussed if polyhydramnios may recommend 38 week delivery Early or threatened labor (20 sources) False labor before 37 completed weeks of gestation; Translations: [False labor before 37 completed weeks of gestation, third trimester] 07-25-2023 Episodic Comment on above: ROM plus negative on 07/25/23 Genitourinary symptoms and ill-defined conditions (14 sources) Urinary incontinence; Translations: [Unspecified urinary incontinence] 06-30-2024 Chronic Comment on above: stress and urge inco ntinences. s/p cs at 38 weeks. Genitourinary symptoms and ill-defined conditions (2 sources) Proteinuria, unspecified; Translations: [Proteinuria, unspecified] Onset: 01-15-2025 Episodic Headache; including migraine (2 sources) Headache; including migraine; Translations: [Headache, unspecified] Onset: 12-26-2024 Hemorrhage during ; abruptio placenta; placenta previa (20 sources) Threatened miscarriage; Translations: [Threatened ] 07-13-2021 Episodic Hypertension complicating ; childbirth and the puerperium (1 source) Unspecified maternal hypertension, unspecified trimester; Translations: [Unspecified maternal hypertension, unspecified trimester] Onset: 01-20-2025 Chronic Hypertension complicating ; childbirth and the puerperium (20 sources) Pre-eclampsia; Translations: [Unspecified pre-eclampsia, unspecified trimester] 07-22-2020 Episodic Comment on above: home bp monitoring, plan IOL 37 weeks. nl growth and LUCERO reviewed preeclampsia precautions Immunizations and screening for infectious disease (20 sources) Influenza vaccination given; Translations: [Encounter for immunization] 07-07-2021 Episodic Comment on above: 03/24/2020sc Mood disorders (20 sources) Mild depression; Translations: [Mild depression] 06-30-2024 Chronic Mood disorders (2 sources) Mood disorders; Translations: [Depression, unspecified] Onset: 01-16-2025 Nonspecific chest pain (20 sources) Chest wall pain; Translations: [Other chest pain] 04-24-2020 Episodic Other complications of ; puerperium affecting management of mother (16 sources) Deliveries by ; Translations: [Encounter for delivery without indication] 08-22-2023 Episodic Comment on above: SM boy Radames 38 GDM [facility] history of shoulder dystocia Other complications of ; puerperium affecting management of mother (2 sources) Encounter for delivery without indication; Translations: [ delivery, without mention of indication, delivered, with or without mention of antepartum condition] 08-22-2023 Episodic Other complications of (20 sources) Maternal obesity complicating , childbirth and the puerperium, antepartum; Translations: [Obesity complicating , unspecified trimester] 01-25-2023 Chronic Comment on above: HgbA1c 1 tm gct abnl, encou raged healthy weight gain Other complications of (20 sources) Obesity complicating , unspecified trimester; Translations: [Obesity complicating , childbirth, or the puerperium, unspecified as to episode of care or not applicable] Onset: 12-24-2024 01-25-2023 Chronic Other complications of (2 sources) Obesity complicating , third trimester; Translations: [Obesity complicating , third trimester] Onset: 01-16-2025 Chronic Other complications of (20 sources) H/O: miscarriage; Translations: [Supervision of with other poor reproductive or obstetric history, unspecified trimester] 01-11-2023 Episodic Other complications of (20 sources) High risk ; Translations: [Supervision of high risk , unspecified, unspecified trimester] 07-22-2020 Episodic Comment on above: PRR, , ANNA MARIE 5, Radames Samuel, Andre- goes by Reuben PRR ANNA MARIE 08/08/20 boy Andre IV boyfriend Andre (goes by Reuben) PRR , ANNA MARIE , boy, MAX Powell, Andre PRR, , ANNA MARIE 5, girl Radames Samuel, Andre- goes by Reuben Other complications of (20 sources) Proteinuria; Translations: [Gestational proteinuria, third trimester] 07-18-2020 Episodic Comment on above: home bp monitoring, overall nl bps but isolated elevation. repeat office evaluation and labs, growth us NL Other complications of (20 sources) Chlamydia trachomatis infection in ; Translations: [Other maternal infectious and parasitic diseases complicating , unspecified trimester] 01-29-2023 Episodic Comment on above: Treated 01/29/23. 02/07:reexposure and retreated. 9/22/23- neg2/12/23-neg Other complications of (20 sources) History of pre-eclampsia; Translations: [Supervision of with other poor reproductive or obstetric history, unspecified trimester] 01-25-2023 Episodic Comment on above: asa and pre e labs baseline PIH labs at start of preg- prot: cr normal. Other complications of (20 sources) H/O: depression; Translations: [History of depression, currently ] 01-11-2023 Episodic Other complications of (20 sources) History of shoulder dystocia; Translations: [Supervision of with other poor reproductive or obstetric history, unspecified trimester] 01-25-2023 Episodic Comment on above: EFW similar to last baby with moderate shoulder dystocia, and this rpegnancy is complicated with uncontrolled diabetes. recommend proceeding with primary cseciton at 38 weeks Other complications of (20 sources) Supervision of with other poor reproductive or obstetric history, unspecified trimester; Translations: [Supervision of high-risk with history of ] Onset: 01-16-2025 01-25-2023 Episodic Other complications of (20 sources) Supervision of high risk , unspecified, unspecified trimester; Translations: [Supervision of unspecified high-risk ] Onset: 12-24-2024 01-25-2023 Episodic Other complications of (20 sources) Other maternal infectious and parasitic diseases complicating , unspecified trimester; Translations: [Other viral diseases in the mother, unspecified as to episode of care or not applicable] 02-23-2023 Episodic Other complications of (20 sources) Back pain complicating ; Translations: [Back pain affecting ] 06-06-2023 Episodic Other complications of (20 sources) History of gestational diabetes mellitus; Translations: [Supervision of with other poor reproductive or obstetric history, unspecified trimester] 07-03-2024 Episodic Comment on above: early 1 hour gct Other complications of (20 sources) Placenta circumvallata; Translations: [Circumvallate placenta, unspecified trimester] 09-17-2024 Episodic Comment on above: growth US Q4w Other complications of (20 sources) Headache; Translations: [Other specified related conditions, unspecified trimester] 12-26-2024 Episodic Other complications of (2 sources) Other specified related conditions, unspecified trimester; Translations: [Other specified related conditions, unspecified trimester] Onset: 01-09-2025 Episodic Other complications of (2 sources) Circumvallate placenta, unspecified trimester; Translations: [Circumvallate placenta, unspecified trimester] Onset: 12-24-2024 Episodic Other complications of (2 sources) Circumvallate placenta, third trimester; Translations: [Circumvallate placenta, third trimester] Onset: 01-16-2025 Episodic Other complications of (2 sources) Supervision of high risk , unspecified, third trimester; Translations: [Supervision of high risk , unspecified, third trimester] Onset: 01-16-2025 Episodic Other complications of (1 source) Other specified related conditions, third trimester; Translations: [Other specified related conditions, third trimester] Onset: 01-19-2025 Episodic Other complications of (1 source) Supervision of with other poor reproductive or obstetric history, third trimester; Translations: [Supervision of with other poor reproductive or obstetric history, third trimester] Onset: 01-19-2025 Episodic Other connective tissue disease (20 sources) Female pelvic floor dysfunction; Translations: [Other specified disorders of muscle] 11-16-2023 Episodic Other connective tissue disease (2 sources) Other specified disorders of muscle; Translations: [Other specified disorders of muscle] Onset: 01-16-2025 Episodic Other female genital disorders (20 sources) Vaginal bleeding; Translations: [Abnormal uterine and vaginal bleeding, unspecified] 07-13-2021 Chronic Other and delivery including normal (20 sources) Patient encounter status; Translations: [Encounter for supervision of normal , unspecified, unspecified trimester] 07-22-2020 Episodic Comment on above: NIPT low risk NIPT low risk, ilene er negative . AFP negative, anatomy normal GBS neg, NIPT low ri sk, declined carrier testing Other upper respiratory disease (20 sources) Seasonal allergy; Translations: [Other seasonal allergic rhinitis] 01-11-2023 Chronic Other upper respiratory disease (9 sources) Other seasonal allergic rhinitis; Translations: [Allergic rhinitis, cause unspecified] 01-25-2023 Chronic Residual codes; unclassified (20 sources) Maternal history of diabetes mellitus; Translations: [Family history of diabetes mellitus] 04-23-2020 Episodic Comment on above: biological mother Residual codes; unclassified (2 sources) History of uterine scar from previous surgery; Translations: [History of uterine scar from previous surgery] Onset: 01-16-2025 Episodic Residual codes; unclassified (1 source) 37 weeks gestation of ; Translations: [37 weeks gestation of ] Onset: 01-16-2025 Episodic Residual codes; unclassified (1 source) 35 weeks gestation of ; Translations: [35 weeks gestation of ] Onset: 01-19-2025 Episodic Residual codes; unclassified (1 source) 31 weeks gestation of ; Translations: [31 weeks gestation of ] Onset: 12-11-2024 Episodic Residual codes; unclassified (1 source) 27 weeks gestation of ; Translations: [27 weeks gestation of ] Onset: 11-11-2024 Episodic Residual codes; unclassified (1 source) 26 weeks gestation of ; Translations: [26 weeks gestation of ] Onset: 12-24-2024 Episodic Screening and history of mental health and substance abuse codes (20 sources) Ex-cigarette smoker; Translations: [Personal history of nicotine dependence] 01-11-2023 Episodic Comment on above: Quit in October 2022. Spontaneous (20 sources) with abortive outcome; Translations: [Complete or unspecified spontaneous without complication] 07-07-2021 Episodic Comment on above: quant decreasing, US shows 6 mm lining no GS seen now. repeat HCG in 2 weeks to confirm negative Sprains and strains (20 sources) Shoulder strain; Translations: [Strain of unspecified muscle, fascia and tendon at shoulder and upper arm level, left arm, initial encounter] 09-26-2024 Episodic Substance-related disorders (20 sources) Marijuana user; Translations: [Cannabis use, unspecified, uncomplicated] Onset: 08-14-2024 01-25-2023 Episodic Comment on above: positive at [facility], enc ouraged cessation, pt aware of random tox screens, Pt states uses 4 days/week in morning due to lack of appetite encouraged cessation , plan random tox screen. Positive 12/06/19, 01/30/20, 03/24/20-01/24/23 Pt has medical marijuana card. Pt is using marijuana vape 2-3 times per day and states trying to quit. Counseling provided. Unclassified (1 source) Nausea / R11.0(ICD-10) Onset: 07-31-2017 Unclassified (1 source) Unspecified abdominal pain / R10.9(ICD-10) Onset: 07-31-2017 Unclassified (1 source) Obesity, unspecified / E66.9(ICD-10) Onset: 07-31-2017 Unclassified (2 sources) Unknown / UNK(Unknown) Onset: 04-02-2017 Unclassified (13 sources) Z3A.27 - 27 weeks gestation of ,M62.89 - Other specified disorders of muscle Unclassified (9 sources) Unclassified (9 sources) Pelvic floor dysfunction in female Past or Other Problems Problem Classification Problem Date Documented Da te Episodic/Chronic Other screening for suspected conditions (not mental disorders or infectious disease) (3 sources) Encounter for screening for diabetes mellitus; Translations: [Encounter for screening for diseases of the blood and blood-forming organs and certain disorders involving the immune mechanism] Onset: 06-13-2024 Episodic Residual codes; unclassified (1 source) 21 weeks gestation of ; Translations: [21 weeks gestation of ] Onset: 10-02-2024 Episodic Unclassified (1 source) PRE EMP UDS [place] Onset: 06-05-2017 Unclassified (1 source) Z79.899 Onset: 04-02-2017 Results Test Name Value Interpretation Reference Range Facility Rule out Beta Strep (Grp. B) on 01-18-2025 KEL Group B Beta Streptococcus is not isolated. Normal [facility] Comment on above: Performed By: #### M 100.3400 #### [facility] Laboratory [address] [place], [address] Laboratory - Chemistry and C hemistry - challengeOrdered By: Fadumo Zelaya on 01-16-2025 Glucose Ql (U) Negative [facility] Laboratory - UrinalysisOrder ed By: Fadumo Zelaya on 01-16-2025 Protein Ql (U) Negative [facility] OB Limited With Biometricson 01-16-2025 OB Limited With Biometrics [facility] Imaging Services [address] [place], [place] [id number] OB Limited With Biometrics MR#: [id number] Acct: [id number] Name: AZAEL SULTANA Rep #: [id number] : 2000 F 24 From: Sumit Puckett MD PCP: MING Sagastume Status: REG CLI Study: OB Limited With Biometrics Date of Exam: 01/16 Exam# [id number] Ordering Dr: Marietta Ghosh CNM PROCEDURE: OB LIMITED WITH BIOMETRICS 01/16/2025 REASON FOR EXAM: GROWTH US EVERY 4 WEEKS TECHNIQUE: OB LIMITED WITH BIOMETRICS COMPARISON: January 08, 2025 FINDINGS There is a live intrauterine . Position is cephalic, placenta is anterior not low, grade 2. Cervix is not visible. heart motion = 155 beats per minute LUCERO = 17.2 cm, max pocket = 6.0 cm. BPD = 9.22 cm, 37 weeks 3 days, 77% OFD = 11.21 cm, 37 weeks 1 day, 60% Head circumference = 32.74 cm, 37 weeks 1 day, 28% Abdominal circumference = 34.97 cm, 38 weeks 6 days, 96% Femur length = 7.11 cm, 36 weeks 3 days, 34% Estimated weight 3412 g, 83rd percentile age by current ultrasound = 37 weeks 2 days Estimated due date by current ultrasound February 04, 2025 survey was not performed. US/OB Limited With Biometrics IMPRESSION: age by current ultrasound = 37 weeks 2 days Estimated due date by current ultrasound February 04, 2025 Reading Location: [facility] CC: RACHAEL Ghosh; MING Ruiz Orientation And Mobility Specialist: Signed Normal [facility] Crm Marketing Executive Office Visit Reporton 01-16-2025 Crm Marketing Executive Office Visit Report [facility] [address], [address] [place] [address] OFFICE VISIT Date of Service: 01/16/25 MR#: [id number] Acct: [id number] Name: AZAEL SULTANA Rep #: [id number] : 2000 Provider: Dr. Fadumo smith MD Age/Sex: 24/F Location: [facility] Status: Signed Intake Vital Signs 12/11/24 15:58 01/13/25 19:19 01/16/25 16:03 01/16/25 16:07 Height 5 ft 3 in 5 ft 3 in 5 ft 3 in 5 ft 3 in Weight: 272 lb 2 oz BMI 48.2 BP 121/83 H Intake Visit Reasons: 37wk ob *csection Chief Complaint: 37 Week OB Cane Loader Required: No Is patient in pain?: No Allergies adhesive tape Allergy (Mild, Verified 01/16/25 16:02) Rash Medications ???Medication ???Instructions ???Recorded ???Confirmed ???Type multivit-min no.71-iron fum 28 300 cap PO DAILY 3 01/16/25 History mg-folate no.1 1 mg-dha 300 mg capsule (PNV-Clothier) ondansetron 4 mg disintegrating 4 mg PO Q4H PRN nausea and 4 01/16/25 Rx tablet vomiting #60 tabs metoclopramide HCl 10 mg tablet 10 mg PO TID nausea #90 tabs 08/2701/16/25 Rx (Reglan) 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 sensor (FreeStyle #1 ea 12/03/24 01/16/25 Rx Dot 3 Sensor device) 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,hand gluer and slicer, cont #1 ea 12/03/24 01/16/25 Rx (FreeStyle Dot 3 Jenners) insulin degludec 100 unit/mL (3 46 unit subcut QHS 01/16/25 History mL) subcutaneous pen (Tresiba FlexTouch U-100 insulin) Last Menstrual Period: 05/02/24 Zika: Zika virus screening: Negative : No PFSH PFSH Medical History Seasonal allergies Hx of chlamydia infection Adopted Chlamydia infection affecting Anxiety Surgical History History of dental surgery Family History Mother Diabetes Grandfather Diabetes Social History adopted: Yes (limited family medical history known) household members: spouse, family and children number of children: 2 current occupational status: employed current occupation: [employer] current occupational exposures/hazards: No pets and animals: Yes pets and animals: dog(s) history of recent travel: No sexually active: Yes Smoking Status: Former smoker quit date: 10/30/22 how long ago did patient quit smokin year ago quit status: quit date established alcohol intake: former details: social drinking prior to substance use type: marijuana well-balanced diet: about half the time caffeine: Yes Type: carbonated beverages Number of servings: 1 eating out: 1-3 times/week during the past year weight has: increased > 10 lbs what type of physical activity do you participate in: none matt/adventist: None seatbelt use: always do you feel safe at home: Yes additional social history: Patient works at [employer]- Works at [employer] History 4 Elective abortions Hx Para 2 Spontaneous abortions 1 Hx # Term Pregnancies 2 Ectopic pregnancies Hx # Pregnancies Multiple births # of living children 2 Past Pregnancies Del. Date Name GA/Weeks Outcome Route Bth Weight Gen Labor Lgth Anesthesia Del Locatn Provider FOB 07/20/20 Andre 37 live - full term vacuum 8# 11oz Male [facility] Myke ellison 08/20/23 Radames Elizondo 38 live - full term 7lbs 8oz Male [facility] Delivery Date: 07/20/20 Last Updated by: Fadumo Zelaya MD IOL pre-eclampsia VAVD triple I, shoulder dystocia Delivery Date: 08/20/23 Last Updated by: Fadumo Zelaya MD secondary to shoulder dystocia with the first HPI 37wk ob *csection Details: AZAEL SULTANA is a 24 year old who presents for routine OB visit. OB Visit ANNA MARIE Calculator Estimated Delivery Date Method Current WG Current Estimate 02/06/25 LMP (Certain) 37w 0d Other Estimates 02/05/25 Ultrasound #1 37w 1d Expected Delivery Route/Plan RLTCS Labor Preferences- CB/BF classes: n0 labor support person: Andre-adilene c section labor intervention preferences: [] pain management options preferred: [] cut cord/dad catch: [] : [] PP control planned: [] discussed possible routes of delivery and associated risks: [] special requests: [] Specific Issue/Plans Covid status: [] Flu vaccine: [] Tdap vaccine: given Rhogam: na LARC form signed: yes Problem list reviewed and updated with the most current plan of care details and appropriate orders placed. Relevant counseling for the gestational age provided. Continue routine care and follow up unless otherwise noted in visit notes/problem list detai (more content not included)... Normal [facility] Screening beta-hemolytic Str eptococcus cultureOrdered By: Fadumo Zelaya on 01-16-2025 Beta-hemolytic Streptococcus culture Group B Beta Streptococcus is not isolated. [facility] (ROM) Rupture Of Membraneson 01-13-2025 ROM Negative Normal Negative [facility] Comment on above: Result Comment: Amni otic fluid not present indicates No Rupture of Membranes at time of specimen collection. Performed By: #### L 205.1000 #### [facility] Laboratory [address] [place], [address] OB Triage Physician Noteon 0 01-13-2025 OB Triage Physician Note [facility] Medical Records Department [address] [place] [address] OB Triage Physician Note 01/13/25 1912 MR#: [id number] Acct: [id number] Name: AZAEL SULTANA Rep #: [id number] : 2000 24 From: Evelin Cardona DO PCP: MING Sagastume Status:DEP CLI Y Location: [facility] HPI - General HPI Narrative AZAEL SULTANA, is a 24 y/o @ 36 weeks 4 days who presents to D with possible rupture of membranes. Maternal Data Information ANNA MARIE Calculator Estimated Delivery Date Method Current WG Current Estimate 02/06/25 LMP (Certain) 36w 6d Other Estimates 02/05/25 Ultrasound #1 37w 0d PFSH PFSH Medical History Seasonal allergies Hx of chlamydia infection Adopted Chlamydia infection affecting Anxiety Home Medications ???Medication ???Instructions ???Recorded ???Last Taken ???Type multivit-min no.71-iron fum 28 300 cap PO DAILY 3 01/12/25 History mg-folate no.1 1 mg-dha 300 mg capsule (PNV-Clothier) ondansetron 4 mg disintegrating 4 mg PO Q4H PRN nausea and 4 Unknown Rx tablet vomiting #60 tabs metoclopramide HCl 10 mg tablet 10 mg PO TID nausea #90 tabs 08/27 Unknown Rx (Reglan) 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 sensor (FreeStyle #1 ea 12/03/24 Unknown Rx Dot 3 Sensor device) 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,hand gluer and slicer, cont #1 ea 12/03/24 Unknown Rx (FreeStyle Dot 3 Jenners) insulin degludec 100 unit/mL (3 42 unit subcut QHS 01/08/25 History mL) subcutaneous pen (Tresiba FlexTouch U-100 insulin) Allergy/AdvReac Type Severity Reaction Status Date / Time adhesive tape Allergy Mild Rash Verified 01/13/25 19:20 Family History Mother Diabetes Grandfather Diabetes Surgical History History of dental surgery Social History adopted: Yes (limited family medical history known) household members: spouse, family and children number of children: 2 current occupational status: employed current occupation: [employer] current occupational exposures/hazards: No pets and animals: Yes pets and animals: dog(s) history of recent travel: No sexually active: Yes Smoking Status: Former smoker quit date: 10/30/22 how long ago did patient quit smokin year ago quit status: quit date established alcohol intake: former details: social drinking prior to substance use type: marijuana well-balanced diet: about half the time caffeine: Yes Type: carbonated beverages Number of servings: 1 eating out: 1-3 times/week during the past year weight has: increased > 10 lbs what type of physical activity do you participate in: none matt/adventist: None seatbelt use: always do you feel safe at home: Yes additional social history: Patient works at [employer]- Works at [employer] History 4 Elective abortions Hx Para 2 Spontaneous abortions 1 Hx # Term Pregnancies 2 Ectopic pregnancies Hx # Pregnancies Multiple births # of living children 2 Past Pregnancies Del. Date Name GA/Weeks Outcome Route Bth Weight Gen Labor Lgth Anesthesia Del Locatn Provider FOB 07/20/20 Andre 37 live - full term vacuum 8# 11oz Male [facility] Myke ellison 08/20/23 Radames Elizondo 38 live - full term 7lbs 8oz Male [facility] Delivery Date: 07/20/20 Last Updated by: Fadumo Zelaya MD IOL pre-eclampsia VAVD triple I, shoulder dystocia Delivery Date: 08/20/23 Last Updated by: Fadumo Zelaya MD secondary to shoulder dystocia with the first Visit Details Expected Delivery Route/Plan RLTCS Labor Preferences- CB/BF classes: n0 labor support person: Andre-adilene c section labor intervention preferences: [] pain management options preferred: [] cut cord/dad catch: [] : [] PP control planned: [] discussed possible routes of delivery and associated risks: [] special requests: [] Plans Covid status: [] Flu vaccine: [] Tdap vaccine: given Rhogam: na LARC form signed: yes Problem list reviewed and updated with the most current plan of care details and appropriate orders placed. Relevant counseling for the gestational age provided. Continue routine care and follow up unless otherwise noted in visit notes/problem list details OB Flowsheet Initial Weight: 247 lb Date -???-???-???-???-???-?? ?-???-???-???-???-???-? ??- EGA Weight BP Urine Prot -???-???-???-???-???-?? ?-???-???-???-???-???-? ??- Glucose FHR FuHt Pres Dilation -???-???-???-???-???-?? ?-???-???-???-???-???-? ??- Effaced St Visit Note 07/03/24 -???-???-???-???-???-?? ?-???- (more content not included)... Normal [facility] AST(SGOT)on 01-08-2025 AST [Catalytic activity/Vol] 12 U/L Normal <=31 [facility] Comment on above: Performed By: #### M 100.3400 #### [facility] [address] [place], [address] Alanine Aminotransferas (SGP T)on 01-08-2025 ALT [Catalytic activity/Vol] U/L Normal <=34 [facility] Comment on above: Performed By: #### M 100.3400 #### [facility] [address] [place], [address] CBC-Complete Blood Cnt No Di ffon 01-08-2025 Erythrocyte distribution width (RBC) [Ratio] 14.7 % High 11.6-14.6 [facility] Comment on above: Performed By: #### M 100.3400 #### [facility] [address] [place], [address] Hematocrit (Bld) [Volume fraction] 34.3 % Low 37-47 [facility] Comment on above: Performed By: #### M 100.3400 #### [facility] [address] [place], [address] Hemoglobin (Bld) [Mass/Vol] 11.4 g/dL Low 12.0-15.0 [facility] Comment on above: Performed By: #### M 100.3400 #### [facility] [address] [place], [address] MCH (RBC) [Entitic mass] 29.4 pg Normal 27.0-32.0 [facility] Comment on above: Performed By: #### M 100.3400 #### [facility] [address] [place], [address] MCHC (RBC) [Mass/Vol] 33.2 g/dL Normal 32-36 [facility] Comment on above: Performed By: #### M 100.3400 #### [facility] [address] [place], [address] MCV (RBC) [Entitic vol] 88.4 fL Normal 81-99 [facility] Comment on above: Performed By: #### M 100.3400 #### [facility] [address] [place], [address] Platelet mean volume (Bld) [Entitic vol] 10.8 fL Normal 6.2-12.0 [facility] Comment on above: Performed By: #### M 100.3400 #### [facility] [address] [place], [address] Platelets (Bld) [#/Vol] 301 10*3/uL Normal 150-450 [facility] Comment on above: Performed By: #### M 100.3400 #### [facility] [address] [place], [address] RBC (Bld) [#/Vol] 3.88 10*6/uL Low 4.2-5.4 [facility] Comment on above: Performed By: #### M 100.3400 #### [facility] [address] [place], [address] RDW SD 47.6 fl High 35.1-43.9 [facility] Comment on above: Performed By: #### M 100.3400 #### [facility] [address] [place], [address] WBC (Bld) [#/Vol] 11.7 10*3/uL High 4.4-11.0 [facility] Comment on above: Performed By: #### M 100.3400 #### [facility] [address] [place], [address] Erythrocyte distribution wid th ratioOrdered By: Evelin Porter on 01-08-2025 Erythrocyte distribution width (RBC) [Ratio] 14.7 % High 11.6-14.6 [facility] Erythrocyte distribution wid th standard deviationOrdered By: Evelin Porter on 01-08-2025 Erythrocyte distribution width (RBC) [Ratio] 47.6 fl High 35.1-43.9 [facility] Glomerular filtration rate ( GFR) estimation/1.73 sq m using serum, plasma, or whole bOrdered By: Evelin Porter on 01-08-2025 GFR/1.73 sq M.predicted among non-blacks MDRD (S/P/Bld) [Vol rate/Area] 133 mL/min/{1.73_m2} >60 [facility] Comment on above: mL/min/1.73m2 CKD-EP I Creatinine Equation (2020) Hematocrit Auto (Bld) [Volum e fraction]Ordered By: Evelin Porter on 01-08-2025 Hematocrit (Bld) [Volume fraction] 34.3 % Low 37-47 [facility] Hemoglobin measurementOrdere d By: Evelin Porter on 01-08-2025 Hemoglobin (Bld) [Mass/Vol] 11.4 g/dL Low 12.0-15.0 [facility] Laboratory - Chemistry and C hemistry - challengeOrdered By: Evelin Porter on 01-08-2025 AST [Catalytic activity/Vol] 12 U/L <32 [facility] - Chemistry and C hemistry - challengeOrdered By: Anisa Blackmon on 01-08-2025 Glucose Ql (U) Negative [facility] - UrinalysisOrder ed By: Anisa Blackmon on 01-08-2025 Protein Ql (U) Trace [facility] MCV (mean corpuscular volume ) determinationOrdered By: Evelin Porter on 01-08-2025 MCV (RBC) [Entitic vol] 88.4 fL 81-99 [facility] Mean corpuscular hemoglobin (MCH) determinationOrdered By: Evelin Porter on 01-08-2025 MCH (RBC) [Entitic mass] 29.4 pg 27.0-32.0 [facility] Mean corpuscular hemoglobin concentration (MCHC) determinationOrdered By: Evelin Porter on 01-08-2025 MCHC (RBC) [Mass/Vol] 33.2 g/dL 32-36 [facility] Mean platelet volume determi nationOrdered By: Evelin Porter on 01-08-2025 Platelet mean volume (Bld) [Entitic vol] 10.8 fL 6.2-12.0 [facility] OB Biophysical Prof W/O NSTo n 01-08-2025 OB Biophysical Prof W/O NST [facility] Imaging Services [address] [place], [place] [address] OB Biophysical Prof W/O NST MR#: [id number] Acct: [id number] Name: AZAEL SULTANA Rep #: [id number] : 2000 F 24 From: Eduardo noe MD PCP: MING Sagastume Status: REG CLI Study: OB Biophysical Prof W/O NST Date of Exam: 12/30 Exam# [id number] Ordering Dr: Fadumo Zelaya PROCEDURE: OB BIOPHYSICAL PROF W/O NST 01/08/2025 REASON FOR EXAM: WELL BEING TECHNIQUE: OB BIOPHYSICAL PROF W/O NST COMPARISON: January 01, 2025. FINDINGS Number: 1 Position: Vertex Placental Position: Anterior and not low-lying. Placental Abnormalities: No evidence of previa. ESTIMATED GESTATIONAL AGE: Baseline: 35 weeks and 6 days By Ultrasound: ESTIMATED DATE OF DELIVERY: Baseline: BIOPHYSICAL ASSESSMENT: Amniotic Fluid Volume: 9.4 cm Amniotic Fluid Index: 20.5 (8-24 cm normal range) Cardiac Motion: 155 beats per minute (average) Trunk and Limb Motion: Present. MATERNAL ANATOMY: Adnexa: Neither maternal ovary is successfully identified. Biophysical profile: Breathing movements: 2 Gross body movements: 2 tone: 2 Amniotic fluid volume: 2 Total score: 8/8 US/OB Biophysical Prof W/O NST IMPRESSION: Normal biophysical profile score of 8/8 Reading Location: [place] [address] CC: INDUSTRIAL PSYCHOLOGY PROFESSOR-C Bird Ruiz; Dr. Fadumo Zelaya MD Orientation And Mobility Specialist: Signed Normal [facility] OB Triage Physician Noteon 0 01-08-2025 OB Triage Physician Note [facility] Medical Records Department [address] [place] [address] OB Triage Physician Note 01/08/251914 MR#: [id number] Acct: [id number] Name: AZAEL SULTANA Rep #: [id number] : 2000 24 From: Evelin Cardona DO PCP: BOSSMAN SagastumeC Status:DEP CLI Y Location: HPI - General General Date of Admission: 01/08/25 HPI Narrative AZAEL SULTANA, is a 24 y/o @ 35 weeks 6 days who presents to L D with headaches. She had a bp in the office of 140/80. She states that she has had a headache on and off during the and today it is actually better than it has been. Maternal Data Information ANNA MARIE Calculator Estimated Delivery Date Method Current WG Current Estimate 02/06/25 LMP (Certain) 35w 6d Other Estimates 02/05/25 Ultrasound #1 36w 0d PFSH PFSH Medical History Seasonal allergies Hx of chlamydia infection Adopted Chlamydia infection affecting Anxiety Home Medications ???Medication ???Instructions ???Recorded ???Last Taken ???Type multivit-min no.71-iron fum 28 300 cap PO DAILY 3 08/18/23 History mg-folate no.1 1 mg-dha 300 mg capsule (PNV-Clothier) ondansetron 4 mg disintegrating 4 mg PO Q4H PRN nausea and 4 Unknown Rx tablet vomiting #60 tabs metoclopramide HCl 10 mg tablet 10 mg PO TID nausea #90 tabs 08/27 Unknown Rx (Reglan) 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 sensor (FreeStyle #1 ea 12/03/24 Unknown Rx Dot 3 Sensor device) 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,hand gluer and slicer, cont #1 ea 12/03/24 Unknown Rx (FreeStyle Dot 3 Jenners) metformin 1,000 mg tablet 1,000 mg PO BID #60 tabs 12/16/24 Unknown Rx insulin degludec 100 unit/mL (3 30 unit subcut QHS 01/08/25 Unknow n History mL) subcutaneous pen (Tresiba FlexTouch U-100 insulin) Allergy/AdvReac Type Severity Reaction Status Date / Time adhesive tape Allergy Mild Rash Verified 01/08/25 13:48 Family History Mother Diabetes Grandfather Diabetes Surgical History History of dental surgery Social History adopted: Yes (limited family medical history known) household members: spouse, family and children number of children: 2 current occupational status: employed current occupation: [employer] current occupational exposures/hazards: No pets and animals: Yes pets and animals: dog(s) history of recent travel: No sexually active: Yes Smoking Status: Former smoker quit date: 10/30/22 how long ago did patient quit smokin year ago quit status: quit date established alcohol intake: former details: social drinking prior to substance use type: marijuana well-balanced diet: about half the time caffeine: Yes Type: carbonated beverages Number of servings: 1 eating out: 1-3 times/week during the past year weight has: increased > 10 lbs what type of physical activity do you participate in: none matt/adventist: None seatbelt use: always do you feel safe at home: Yes additional social history: Patient works at [employer]- Works at [employer] History 4 Elective abortions Hx Para 2 Spontaneous abortions 1 Hx # Term Pregnancies 2 Ectopic pregnancies Hx # Pregnancies Multiple births # of living children 2 Past Pregnancies Del. Date Name GA/Weeks Outcome Route Bth Weight Infant Gen Labor Lgth Anesthesia Del Locatn Provider FOB 07/20/20 Andre 37 live - full term vacuum 8# 11oz Male [facility] Myke ellison 08/20/23 Radames Elizondo 38 live - full term 7lbs 8oz Male [facility] Delivery Date: 07/20/20 Last Updated by: Fadumo Zelaya MD IOL pre-eclampsia VAVD triple I, shoulder dystocia Delivery Date: 08/20/23 Last Updated by: Fadumo Zelaya MD secondary to shoulder dystocia with the first Visit Details Expected Delivery Route/Plan RLTCS Labor Preferences- CB/BF classes: n0 labor support person: Marla johnson section labor intervention preferences: [] pain management options preferred: [] cut cord/dad catch: [] : [] PP control planned: [] discussed possible routes of delivery and associated risks: [] special requests: [] Plans Covid status: [] Flu vaccine: [] Tdap vaccine: given Rhogam: na LARC form signed: yes Problem list reviewed and updated with the most current plan of care details and appropriate orders placed. Relevant counseling for the gestational age provided. Continue routine care and follow up unless otherwise noted in visit notes/problem list details OB Flowsheet Initial Weight: 247 lb Date -???-???-???-???-???-?? ?-???-???-? (more content not included)... Normal [facility] Crm Marketing Executive Office Visit Reporton 01-08-2025 Crm Marketing Executive Office Visit Report [facility] [address], [facility] [address] [place] [address] OFFICE VISIT Date of Service: 01/08/25 MR#: [id number] Acct: [id number] Name: AZAEL SULTANA Rep #: [id number] : 2000 Provider: MING cordero Age/Sex: 24/F Location: [facility] Status: Signed Intake Vital Signs 12/11/24 15:58 12/26/24 14:28 01/08/25 13:50 01/08/25 13:57 Height 5 ft 3 in 5 ft 3 in 5 ft 3 in 5 ft 3 in Weight: 271 lb 4 oz BMI 48.0 BP 140/82 H Intake Visit Reasons: 36wk ob Chief Complaint: 36 Week OB Cane Loader Required: No Is patient in pain?: No Allergies adhesive tape Allergy (Mild, Verified 01/08/25 13:48) Rash Medications ???Medication ???Instructions ???Recorded ???Confirmed ???Type multivit-min no.71-iron fum 28 300 cap PO DAILY 3 01/08/25 History mg-folate no.1 1 mg-dha 300 mg capsule (PNV-Clothier) ondansetron 4 mg disintegrating 4 mg PO Q4H PRN nausea and 4 01/08/25 Rx tablet vomiting #60 tabs metoclopramide HCl 10 mg tablet 10 mg PO TID nausea #90 tabs 08/2701/08/25 Rx (Reglan) 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 sensor (FreeStyle #1 ea 12/03/24 01/08/25 Rx Dot 3 Sensor device) 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,hand gluer and slicer, cont #1 ea 12/03/24 01/08/25 Rx (FreeStyle Dot 3 Jenners) metformin 1,000 mg tablet 1,000 mg PO BID #60 tabs 12/16/24 01/08/25 Rx insulin degludec 100 unit/mL (3 30 unit subcut QHS 01/08/25 History mL) subcutaneous pen (Tresiba FlexTouch U-100 insulin) Last Menstrual Period: 05/02/24 Zika: Zika virus screening: Negative : No PFSH PFSH Medical History Seasonal allergies Hx of chlamydia infection Adopted Chlamydia infection affecting Anxiety Surgical History History of dental surgery Family History Mother Diabetes Grandfather Diabetes Social History adopted: Yes (limited family medical history known) household members: spouse, family and children number of children: 2 current occupational status: employed current occupation: [employer] current occupational exposures/hazards: No pets and animals: Yes pets and animals: dog(s) history of recent travel: No sexually active: Yes Smoking Status: Former smoker quit date: 10/30/22 how long ago did patient quit smokin year ago quit status: quit date established alcohol intake: former details: social drinking prior to substance use type: marijuana well-balanced diet: about half the time caffeine: Yes Type: carbonated beverages Number of servings: 1 eating out: 1-3 times/week during the past year weight has: increased > 10 lbs what type of physical activity do you participate in: none matt/adventist: None seatbelt use: always do you feel safe at home: Yes additional social history: Patient works at [email or web address]- Works at [employer] History 4 Elective abortions Hx Para 2 Spontaneous abortions 1 Hx # Term Pregnancies 2 Ectopic pregnancies Hx # Pregnancies Multiple births # of living children 2 Past Pregnancies Del. Date Name GA/Weeks Outcome Route Bth Weight Infant Gen Labor Lgth Anesthesia Del Locatn Provider FOB 07/20/20 Andre 37 live - full term vacuum 8# 11oz Male [facility] Myke ellison 08/20/23 Radames Elizondo 38 live - full term 7lbs 8oz Male [facility] SM Delivery Date: 07/20/20 Last Updated by: Fadumo Zelaya MD IOL pre-eclampsia VAVD triple I, shoulder dystocia Delivery Date: 08/20/23 Last Updated by: Fadumo Zelaya MD secondary to shoulder dystocia with the first HPI 36wk ob Details: AZAEL SULTANA is a 24 year old who presents for routine OB visit. OB Visit ANNA MARIE Calculator Estimated Delivery Date Method Current WG Current Estimate 02/06/25 LMP (Certain) 35w 6d Other Estimates 02/05/25 Ultrasound #1 36w 0d Expected Delivery Route/Plan RLTCS SM Labor Preferences- CB/BF classes: n0 labor support person: Andre-adilene c section labor intervention preferences: [] pain management options preferred: [] cut cord/dad catch: [] : [] PP control planned: [] discussed possible routes of delivery and associated risks: [] special requests: [] Specific Issue/Plans Covid status: [] Flu vaccine: [] Tdap vaccine: given Rhogam: na LARC form signed: yes Problem list reviewed and updated with the most current plan of care details and appropriate orders placed. Relevant counseling for the gestational age provided. Continue routine care and follow up unless (more content not included)... Normal [facility] Platelet countOrdered By: Davi Porter on 01-08-2025 Platelets (Bld) [#/Vol] 301 10*3/uL 150-450 [facility] Protein+Creatinine Ratio,Uri neon 01-08-2025 PROT:CRE RATIO 97 mg/g CRE Normal 0-200 [facility] Comment on above: Performed By: #### M 100.3400 #### [facility] [address] [place], [address] Protein (U) [Mass/Vol] 25.5 mg/dL High 0.0-12.0 [facility] Comment on above: Performed By: #### M 100.3400 #### [facility] [address] [place], [address] UR CREAT 263.00 mg/dL High 28.00-217.00 [facility] Comment on above: Performed By: #### M 100.3400 #### [facility] [address] [place], [address] RBC Auto (Bld) [#/Vol]Ordere d By: Evelin Porter on 01-08-2025 RBC (Bld) [#/Vol] 3.88 10*6/uL Low 4.2-5.4 [facility] urine creatinine jose cruz urement (mass/volume)Ordered By: Evelin Porter on 01-08-2025 Creatinine Unsp time (U) [Mass/Vol] 263.00 mg/dL High 28.00-217.00 [facility] Serum Creatinine AND GFRon 0 01-08-2025 Creatinine [Mass/Vol] 0.52 mg/dL Low 0.70-1.20 [facility] Comment on above: Performed By: #### M 100.3400 #### [facility] [address] [place], [address] ECRCL 212.26 ml/min Normal 50-250 [facility] Comment on above: Performed By: #### M 100.3400 #### [facility] [address] [place], [address] GFR/1.73 sq M.predicted among non-blacks MDRD (S/P/Bld) [Vol rate/Area] 133 mL/min/{1.73_m2} Normal >60 [facility] Comment on above: Result Comment: mL/m in/1.73m2 CKD-EPI Creatinine Equation (2020) Performed By: #### M 100.3400 #### [facility] [address] [facility] [place], [place], [address] Serum creatinine measurement (mass/volume)Ordered By: Evelin Porter on 01-08-2025 Creatinine [Mass/Vol] 0.52 mg/dL Low 0.70-1.20 [facility] Serum or plasma alanine purdy otransferase (ALT) measurementOrdered By: Evelin Porter on 01-08-2025 ALT [Catalytic activity/Vol] U/L <35 [facility] Serum or plasma uric acid me asurement (mass/volume)Ordered By: Evelin Porter on 01-08-2025 Urate [Mass/Vol] 4.9 mg/dL 2.6-6.0 [facility] Comment on above: The drugs N-Acetylcy steine and Metamizole may falsely depress this assay. Uric Acidon 01-08-2025 URIC 4.9 mg/dL Normal 2.6-6.0 [facility] Comment on above: Result Comment: The drugs N-Acetylcysteine and Metamizole may falsely depress this assay. Performed By: #### M 100.3400 #### [facility] [address] [facility] [place], [place], [address] Urine protein measurement (m ass/volume)Ordered By: Evelin Porter on 01-08-2025 Protein (U) [Mass/Vol] 25.5 mg/dL High 0.0-12.0 [facility] Urine protein/creatinine mas s ratioOrdered By: Evelin Porter on 01-08-2025 Protein/Creatinine (U) [Mass ratio] 97 mg/g CRE 0-200 [facility] White blood cell (WBC) count Ordered By: Evelin Porter on 01-08-2025 WBC (Bld) [#/Vol] 11.7 10*3/uL High 4.4-11.0 [facility] OB Biophysical Prof W/O NSTo n 01-01-2025 OB Biophysical Prof W/O NST [facility] Imaging Services [address] [place] [address] OB Biophysical Prof W/O NST MR#: [id number] Acct: [id number] Name: AZAEL SULTANA Rep #: [id number] : 2000 F 24 From: Franki Vanessa DO PCP: MING Sagastume Status: REG CLI Study: OB Biophysical Prof W/O NST Date of Exam: 09/23 Exam# [id number] Ordering Dr: Fadumo Zelaya PROCEDURE: OB BIOPHYSICAL PROF W/O nonstress test 01/01/2025 REASON FOR EXAM: WELL BEING TECHNIQUE: OB BIOPHYSICAL PROF W/O nonstress test COMPARISON: None. FINDINGS Number: 1 Position: Breech Placental Position: Anterior Placental Abnormalities: Not low-lying ESTIMATED GESTATIONAL AGE: Baseline: 34 weeks, 6 days By Ultrasound: 35 weeks, 4 days ESTIMATED DATE OF DELIVERY: Baseline: February 07, 2020 By Ultrasound: February 02, 2020 BIOPHYSICAL ASSESSMENT: Amniotic Fluid Volume: Normal Amniotic Fluid Index: 14.6 (8-24 cm normal range) Cardiac Motion: 158 (average) Trunk and Limb Motion: Present. US/OB Biophysical Prof W/O NST IMPRESSION: Biophysical profile score: 8/8 Reading Location: [facility] CC: INDUSTRIAL PSYCHOLOGY PROFESSOR-C Bird Ruiz; Dr. Fadumo Zelaya MD Orientation And Mobility Specialist: Signed Normal [facility] Absolute lymphocyte countOrd ered By: Fadumo Zelaya on 12-26-2024 Lymphocytes Auto (Unsp spec) [#/Vol] 2.01 10*3/uL 0.83-4.51 [facility] Absolute neutrophil countOrd ered By: Fadumo Zelaya on 12-26-2024 Neutrophils (Bld) [#/Vol] 10.1 10*3/uL High 2.0-7.7 [facility] Anion gap in Serum or Plasma Ordered By: Fadumo Zelaya on 12-26-2024 Anion gap [Moles/Vol] 12 mmol/L 5-15 [facility] Automated lymphocyte count a s percentage of total leukocytesOrdered By: Fadumo Zelaya on 12-26-2024 Lymphocytes/100 WBC Auto (Unsp spec) 15.3 % Low 19-41 [facility] BUN/creatinine ratioOrdered By: Fadumo Zelaya on 12-26-2024 Urea nitrogen/Creatinine [Mass ratio] 14.4 mg/mg 10-20 [facility] Basophil percentageOrdered B y: Fadumo Zelaya on 12-26-2024 Basophils/100 WBC (Bld) 0.5 % 0-1 [facility] Bilirubin, totalOrdered By: Fadumo Zelaya on 12-26-2024 Bilirubin [Mass/Vol] 0.18 mg/dL 0.00-1.30 [facility] CBC W/Diff, Automatedon 12-01 Absolute Lymph 2.01 X10 3/uL Normal 0.83-4.51 [facility] Comment on above: Performed By: #### L 100.0100, L500.4050 #### [facility] [address] [place], [address] Absolute Neut 10.1 X10 3/uL High 2.0-7.7 [facility] Comment on above: Performed By: #### L 100.0100, L500.4050 #### [facility] [address] [place], [address] Basophils/100 WBC (Bld) 0.5 % Normal 0-1 [facility] Comment on above: Performed By: #### L 100.0100, L500.4050 #### [facility] [address] [place], [address] Eosinophils/100 WBC (Bld) 0.6 % Normal 0-5 [facility] Comment on above: Performed By: #### L 100.0100, L500.4050 #### [facility] [address] [place], [address] Erythrocyte distribution width (RBC) [Ratio] 14.6 % Normal 11.6-14.6 [facility] Comment on above: Performed By: #### L 100.0100, L500.4050 #### [facility] [address] [place], [address] Hematocrit (Bld) [Volume fraction] 37.3 % Normal 37-47 [facility] Comment on above: Performed By: #### L 100.0100, L500.4050 #### [facility] [address] [place], [address] Hemoglobin (Bld) [Mass/Vol] 12.3 g/dL Normal 12.0-15.0 [facility] Comment on above: Performed By: #### L 100.0100, L500.4050 #### [facility] [address] [place], [address] IG% 1.600 High 0.0-0.9 [facility] Comment on above: Result Comment: IG% - Immature Granulocytes (promyelocytes, myelocytes and metamyelocytes) > 1% indicates that a LEFT SHIFT is Present. Performed By: #### L 100.0100, L500.4050 #### [facility] [address] [place], [address] Lymphocytes/100 WBC (Bld) 15.3 % Low 19-41 [facility] Comment on above: Performed By: #### L 100.0100, L500.4050 #### [facility] [address] [place], [address] MCH (RBC) [Entitic mass] 29.5 pg Normal 27.0-32.0 [facility] Comment on above: Performed By: #### L 100.0100, L500.4050 #### [facility] [address] [place], [address] MCHC (RBC) [Mass/Vol] 33.0 g/dL Normal 32-36 [facility] Comment on above: Performed By: #### L 100.0100, L500.4050 #### [facility] [address] [place], [address] MCV (RBC) [Entitic vol] 89.4 fL Normal 81-99 [facility] Comment on above: Performed By: #### L 100.0100, L500.4050 #### [facility] [address] [place], [address] Monocytes/100 WBC (Bld) 4.8 % Normal 0-10 [facility] Comment on above: Performed By: #### L 100.0100, L500.4050 #### [facility] [address] [place], [address] Neutrophils/100 WBC (Bld) 77.2 % High 47-70 [facility] Comment on above: Performed By: #### L 100.0100, L500.4050 #### [facility] [address] [place], [address] Nucleated RBC (Bld) [#/Vol] 0 10*3/uL Normal 0-5 [facility] Comment on above: Performed By: #### L 100.0100, L500.4050 #### [facility] [address] [place], [address] Platelet mean volume (Bld) [Entitic vol] 10.4 fL Normal 6.2-12.0 [facility] Comment on above: Performed By: #### L 100.0100, L500.4050 #### [facility] [address] [place], [address] Platelets (Bld) [#/Vol] 340 10*3/uL Normal 150-450 [facility] Comment on above: Performed By: #### L 100.0100, L500.4050 #### [facility] [address] [place], [address] RBC (Bld) [#/Vol] 4.17 10*6/uL Low 4.2-5.4 [facility] Comment on above: Performed By: #### L 100.0100, L500.4050 #### [facility] [address] [place], [address] RDW SD 47.1 fl High 35.1-43.9 [facility] Comment on above: Performed By: #### L 100.0100, L500.4050 #### [facility] [address] [place], [address] WBC (Bld) [#/Vol] 13.1 10*3/uL High 4.4-11.0 [facility] Comment on above: Performed By: #### L 100.0100, L500.4050 #### [facility] [address] [place], [address] Carbon dioxide, total [Moles /volume] in Central venous bloodOrdered By: Fadumo Zelaya on 12-26-2024 CO2 [Moles/Vol] 21.8 mmol/L 21.0-32.0 [facility] Chloride assayOrdered By: Ene Zelaya on 12-26-2024 Chloride [Moles/Vol] 100 mmol/L 98-108 [facility] Comprehensive Metabolic Prof ilon 12-26-2024 Albumin [Mass/Vol] 3.7 g/dL Normal 3.5-5.0 [facility] Comment on above: Performed By: #### L 100.0100, L500.4050 #### [facility] [address] [place], [address] Albumin/Globulin [Mass ratio] 1.2 {ratio} Normal 0.9-2.4 [facility] Comment on above: Performed By: #### L 100.0100, L500.4050 #### [facility] [address] [place], [address] ALK PHOS 124 U/L High 35-104 [facility] Comment on above: Performed By: #### L 100.0100, L500.4050 #### [facility] [address] [place], [address] ALT [Catalytic activity/Vol] U/L Normal <=34 [facility] Comment on above: Performed By: #### L 100.0100, L500.4050 #### [facility] [address] [place], [address] AST [Catalytic activity/Vol] 12 U/L Normal <=31 [facility] Comment on above: Performed By: #### L 100.0100, L500.4050 #### [facility] [address] [place], [address] Bilirubin [Mass/Vol] 0.18 mg/dL Normal 0.00-1.30 [facility] Comment on above: Performed By: #### L 100.0100, L500.4050 #### [facility] [address] [place], [address] BUN/CRE 14.4 RATIO Normal 10-20 [facility] Comment on above: Performed By: #### L 100.0100, L500.4050 #### [facility] [address] [place], [address] Calcium [Mass/Vol] 9.6 mg/dL Normal 7.6-11.0 [facility] Comment on above: Performed By: #### L 100.0100, L500.4050 #### [facility] [address] [place], [address] Chloride [Moles/Vol] 100 mmol/L Normal 98-108 [facility] Comment on above: Performed By: #### L 100.0100, L500.4050 #### [facility] [address] [place], [address] CO2 [Moles/Vol] 21.8 mmol/L Normal 21.0-32.0 [facility] Comment on above: Performed By: #### L 100.0100, L500.4050 #### [facility] [address] [place], [address] Creatinine [Mass/Vol] 0.49 mg/dL Low 0.70-1.20 [facility] Comment on above: Performed By: #### L 100.0100, L500.4050 #### [facility] [address] [place], [address] GAP 12 Normal 5-15 [facility] Comment on above: Performed By: #### L 100.0100, L500.4050 #### [facility] [address] [place], [address] GFR/1.73 sq M.predicted among non-blacks MDRD (S/P/Bld) [Vol rate/Area] 135 mL/min/{1.73_m2} Normal >60 [facility] Comment on above: Result Comment: mL/m in/1.73m2 CKD-EPI Creatinine Equation (2020) Performed By: #### L 100.0100, L500.4050 #### [facility] [address] [place], [address] Globulin (S) [Mass/Vol] 3.1 g/dL Normal 2.2-4.2 [facility] Comment on above: Performed By: #### L 100.0100, L500.4050 #### [facility] [address] [place], [address] Glucose [Mass/Vol] 109 mg/dL High 70-99 [facility] Comment on above: Performed By: #### L 100.0100, L500.4050 #### [facility] [address] [place], [address] Potassium [Moles/Vol] 4.0 mmol/L Normal 3.3-5.1 [facility] Comment on above: Performed By: #### L 100.0100, L500.4050 #### [facility] [address] [place], [address] Sodium [Moles/Vol] 133 mmol/L Normal 133-145 [facility] Comment on above: Performed By: #### L 100.0100, L500.4050 #### [facility] [address] [place], [address] T PROT 6.8 g/dL Normal 5.9-8.4 [facility] Comment on above: Performed By: #### L 100.0100, L500.4050 #### [facility] [address] [place], [address] Urea nitrogen [Mass/Vol] 7 mg/dL Normal 4-19 [facility] Comment on above: Performed By: #### L 100.0100, L500.4050 #### [facility] [address] [place], [address] Eosinophil percentageOrdered By: Fadumo Zelaya on 12-26-2024 Eosinophils/100 WBC (Bld) 0.6 % 0-5 [facility] Erythrocyte distribution wid th ratioOrdered By: Fadumo Zelaya on 12-26-2024 Erythrocyte distribution width (RBC) [Ratio] 14.6 % 11.6-14.6 [facility] Erythrocyte distribution wid th standard deviationOrdered By: Fadumo Zelaya on 12-26-2024 Erythrocyte distribution width (RBC) [Ratio] 47.1 fl High 35.1-43.9 [facility] Glomerular filtration rate ( GFR) estimation/1.73 sq m using serum, plasma, or whole bOrdered By: Fadumo Zelaya on 12-26-2024 GFR/1.73 sq M.predicted among non-blacks MDRD (S/P/Bld) [Vol rate/Area] 135 mL/min/{1.73_m2} >60 [facility] Comment on above: mL/min/1.73m2 CKD-EP I Creatinine Equation (2020) Hematocrit Auto (Bld) [Volum e fraction]Ordered By: Fadumo Zelaya on 12-26-2024 Hematocrit (Bld) [Volume fraction] 37.3 % 37-47 [facility] Hemoglobin measurementOrdere d By: Fadumo Zelaya on 12-26-2024 Hemoglobin (Bld) [Mass/Vol] 12.3 g/dL 12.0-15.0 [facility] Immature granulocytes/100 WB C Auto (Bld)Ordered By: Fadumo Zelaya on 12-26-2024 Immature granulocytes/100 WBC (Bld) 1.600 % High 0.0-0.9 [facility] Comment on above: IG% - Immature Granu locytes (promyelocytes, myelocytes and metamyelocytes) > 1% indicates that a LEFT SHIFT is Present. Laboratory - Chemistry and C hemistry - challengeOrdered By: Fadumo Zelaya on 12-26-2024 AST [Catalytic activity/Vol] 12 U/L <32 [facility] - Chemistry and C hemistry - challengeOrdered By: Evelin Porter on 12-26-2024 Bilirubin Ql (U) Negative [facility] Glucose Ql (U) Negative [facility] Ketones Ql (U) Negative [facility] pH (U) 5.0 [pH] [facility] Specific gravity (U) [Rel density] 1.025 [facility] Urobilinogen (U) [Mass/Vol] 0.0920898 mg/dL [facility] - Hematology and Cell countsOrdered By: Evelin Porter on 12-26-2024 Hemoglobin Ql (U) Negative [facility] - Specimen inform ationOrdered By: Evelin Porter on 12-26-2024 Clarity (U) Cloudy [facility] Color (U) STRAW [facility] - UrinalysisOrder ed By: Evelin Porter on 12-26-2024 Nitrite Ql (U) Negative [facility] Protein Ql (U) Trace [facility] MCV (mean corpuscular volume ) determinationOrdered By: Fadumo Zelaya on 12-26-2024 MCV (RBC) [Entitic vol] 89.4 fL 81-99 [facility] Mean corpuscular hemoglobin (MCH) determinationOrdered By: Fadumo Zelaya on 12-26-2024 MCH (RBC) [Entitic mass] 29.5 pg 27.0-32.0 [facility] Mean corpuscular hemoglobin concentration (MCHC) determinationOrdered By: Fadumo Zelaya on 12-26-2024 MCHC (RBC) [Mass/Vol] 33.0 g/dL 32-36 [facility] Mean platelet volume determi nationOrdered By: Fadumo Zelaya on 12-26-2024 Platelet mean volume (Bld) [Entitic vol] 10.4 fL 6.2-12.0 [facility] Monocyte percentageOrdered B y: Fadumo Zelaya on 12-26-2024 Monocytes/100 WBC (Bld) 4.8 % 0-10 [facility] Neutrophil percentageOrdered By: Fadumo Zelaya on 12-26-2024 Neutrophils/100 WBC (Bld) 77.2 % High 47-70 [facility] No Panel InformationOrdered By: Evelin Porter on 12-26-2024 Urine Leukocytes Negatve [facility] Nucleated red blood cell per centageOrdered By: Fadumo Zelaya on 12-26-2024 Nucleated RBC/100 WBC (Bld) [Ratio] 0 % 0-5 [facility] [employer] Office Visit Reporton 12-26-2024 [employer] Office Visit Report [facility] [address], [address] [place] [address] OFFICE VISIT Date of Service: 12/26/24 MR#: [id number] Acct: [id number] Name: AZAEL SULTANA Rep #: [id number] : 2000 Provider: Dr. Fadumo smith MD Age/Sex: 24/F Location: [facility] Status: Signed Intake Vital Signs 07/03/24 13:01 12/16/24 10:39 12/26/24 14:26 12/26/24 14:28 Height 5 ft 3 in 5 ft 3 in 5 ft 3 in 5 ft 3 in Weight: 264 lb 6 oz BMI 46.8 BP 138/82 H Intake Visit Reasons: 34 WK OB Cane Loader Required: No Is patient in pain?: No Allergies adhesive tape Allergy (Mild, Verified 12/26/24 14:26) Rash Medications ???Medication ???Instructions ???Recorded ???Confirmed ???Type multivit-min no.71-iron fum 28 300 cap PO DAILY 3 12/26/24 History mg-folate no.1 1 mg-dha 300 mg capsule (PNV-Clothier) ondansetron 4 mg disintegrating 4 mg PO Q4H PRN nausea and 4 12/26/24 Rx tablet vomiting #60 tabs metoclopramide HCl 10 mg tablet 10 mg PO TID nausea #90 tabs 08/2712/26/24 Rx (Reglan) 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 sensor (FreeStyle #1 ea 12/03/24 12/26/24 Rx Dot 3 Sensor device) 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,hand gluer and slicer, cont #1 ea 12/03/24 12/26/24 Rx (FreeStyle Dot 3 Jenners) metformin 1,000 mg tablet 1,000 mg PO BID #60 tabs 12/16/24 12/26/24 Rx Last Menstrual Period: 05/02/24 Zika: Zika virus screening: Negative : No PFSH PFSH Medical History Seasonal allergies Hx of chlamydia infection Adopted Chlamydia infection affecting Anxiety Surgical History History of dental surgery Family History Mother Diabetes Grandfather Diabetes Social History adopted: Yes (limited family medical history known) household members: spouse, family and children number of children: 2 current occupational status: employed current occupation: [employer] current occupational exposures/hazards: No pets and animals: Yes pets and animals: dog(s) history of recent travel: No sexually active: Yes Smoking Status: Former smoker quit date: 10/30/22 how long ago did patient quit smokin year ago quit status: quit date established alcohol intake: former details: social drinking prior to substance use type: marijuana well-balanced diet: about half the time caffeine: Yes Type: carbonated beverages Number of servings: 1 eating out: 1-3 times/week during the past year weight has: increased > 10 lbs what type of physical activity do you participate in: none matt/adventist: None seatbelt use: always do you feel safe at home: Yes additional social history: Patient works at [employer]- Works at [employer] History 4 Elective abortions Hx Para 2 Spontaneous abortions 1 Hx # Term Pregnancies 2 Ectopic pregnancies Hx # Pregnancies Multiple births # of living children 2 Past Pregnancies Del. Date Name GA/Weeks Outcome Route Bth Weight Gen Labor Lgth Anesthesia Del Locatn Provider FOB 07/20/20 Andre 37 live - full term vacuum 8# 11oz Male [facility] Myke ellison 08/20/23 Radames Nayakon 38 live - full term 7lbs 8oz Male [facility] SM Delivery Date: 07/20/20 Last Updated by: Fadumo Zelaya MD IOL pre-eclampsia VAVD triple I, shoulder dystocia Delivery Date: 08/20/23 Last Updated by: Fadumo Zelaya MD secondary to shoulder dystocia with the first HPI 34 WK OB Details: AZAEL SULTANA is a 24 year old who presents for routine OB visit. OB Visit ANNA MARIE Calculator Estimated Delivery Date Method Current WG Current Estimate 02/06/25 LMP (Certain) 34w 0d Other Estimates 02/05/25 Ultrasound #1 34w 1d Expected Delivery Route/Plan RLTCS SM Labor Preferences- CB/BF classes: n0 labor support person: Andre-adilene c section labor intervention preferences: [] pain management options preferred: [] cut cord/dad catch: [] : [] PP control planned: [] discussed possible routes of delivery and associated risks: [] special requests: [] Specific Issue/Plans Covid status: [] Flu vaccine: [] Tdap vaccine: given Rhogam: na LARC form signed: yes Problem list reviewed and updated with the most current plan of care details and appropriate orders placed. Relevant counseling for the gestational age provided. Continue routine care and follow up unless otherwise noted in visit notes/problem list details Initial Weight: 247 lb Date -???-???-???-???-???-?? ?-???-???-???-???-???-? ??- EGA Weight BP Urine Pr (more content not included)... Normal [facility] Platelet countOrdered By: Ene Zelaya on 12-26-2024 Platelets (Bld) [#/Vol] 340 10*3/uL 150-450 [facility] Potassium measurement (mass/ volume)Ordered By: Fadumo Zelaya on 12-26-2024 Potassium (Unsp spec) [Mass/Vol] 4.0 mmol/L 3.3-5.1 [facility] Protein+Creatinine Ratio,Uri neon 12-26-2024 PROT:CRE RATIO 182 mg/g CRE Normal 0-200 [facility] Comment on above: Performed By: #### L 3890.6006, L100.0100, L501.0250, L509.8002 #### [facility] [address] [place], [address] Protein (U) [Mass/Vol] 28.8 mg/dL High 0.0-12.0 [facility] Comment on above: Performed By: #### L 3890.6006, L100.0100, L501.0250, L509.8002 #### [facility] [address] [place], [address] UR CREAT 158.00 mg/dL Normal 28.00-217.00 [facility] Comment on above: Performed By: #### L 3890.6006, L100.0100, L501.0250, L509.8002 #### [facility] [address] [place], [address] RBC Auto (Bld) [#/Vol]Ordere d By: Fadumo Zelaya on 12-26-2024 RBC (Bld) [#/Vol] 4.17 10*6/uL Low 4.2-5.4 [facility] urine creatinine jose cruz urement (mass/volume)Ordered By: Fadumo Zelaya on 12-26-2024 Creatinine Unsp time (U) [Mass/Vol] 158.00 mg/dL 28.00-217.00 [facility] Serum creatinine measurement (mass/volume)Ordered By: Fadumo Zelaya on 12-26-2024 Creatinine [Mass/Vol] 0.49 mg/dL Low 0.70-1.20 [facility] Serum globulin measurementOr dered By: Faudmo Zelaya on 12-26-2024 Globulin (S) [Mass/Vol] 3.1 g/dL 2.2-4.2 [facility] Serum glucose measurement (m ass/volume)Ordered By: Fadumo Zelaya on 12-26-2024 Glucose [Mass/Vol] 109 mg/dL High 70-99 [facility] Serum or plasma alanine purdy otransferase (ALT) measurementOrdered By: Fadumo Zelaya on 12-26-2024 ALT [Catalytic activity/Vol] U/L <35 [facility] Serum or plasma albumin jose cruz urement (mass/volume)Ordered By: Fadumo Zelaya on 12-26-2024 Albumin [Mass/Vol] 3.7 g/dL 3.5-5.0 [facility] Serum or plasma albumin/glob ulin mass ratioOrdered By: Fadumo Zelaya on 12-26-2024 Albumin/Globulin [Mass ratio] 1.2 {ratio} 0.9-2.4 [facility] Serum or plasma alkaline silvio sphatase measurementOrdered By: Fadumo Zelaya on 12-26-2024 ALP [Catalytic activity/Vol] 124 U/L High 35-104 [facility] Serum or plasma calcium jose cruz urement (mass/volume)Ordered By: Fadumo Zelaya on 12-26-2024 Calcium [Mass/Vol] 9.6 mg/dL 7.6-11.0 [facility] Serum or plasma urea nitroge n measurement (mass/volume)Ordered By: Fadumo Zelaya on 12-26-2024 Urea nitrogen [Mass/Vol] 7 mg/dL 4-19 [facility] Sodium levelOrdered By: Reddy Zelaya on 12-26-2024 Sodium [Moles/Vol] 133 mmol/L 133-145 [facility] Total proteinOrdered By: Eb Zelaya on 12-26-2024 Protein [Mass/Vol] 6.8 g/dL 5.9-8.4 [facility] Urine protein measurement (m ass/volume)Ordered By: Fadumo Alex on 12-26-2024 Protein (U) [Mass/Vol] 28.8 mg/dL High 0.0-12.0 [facility] Urine protein/creatinine mas s ratioOrdered By: Fadumo Zelaya on 12-26-2024 Protein/Creatinine (U) [Mass ratio] 182 mg/g CRE 0-200 [facility] White blood cell (WBC) count Ordered By: Fadumo Zelaya on 12-26-2024 WBC (Bld) [#/Vol] 13.1 10*3/uL High 4.4-11.0 [facility] OB Limited With Biometricson 12-17-2024 OB Limited With Biometrics [facility] Services [address] [place], [place] [id number] OB Limited With Biometrics MR#: [id number] Acct: [id number] Name: AZAEL SULTANA Rep #: [id number] : 2000 F 24 From: Eduardo noe MD PCP: MING Sagastume Status: REG CLI Study: OB Limited With Biometrics Date of Exam: 12/17 Exam# [id number] Ordering Dr: Marietta Ghosh CNM PROCEDURE: OB LIMITED WITH BIOMETRICS 12/17/2024 REASON FOR EXAM: 31WK GESTATION GROWTH US TECHNIQUE: OB LIMITED WITH BIOMETRICS COMPARISON: None FINDINGS Number: 1 Position: Vertex Placental Position: Anterior Placental Abnormalities: No evidence of previa. DIMENSIONS: Biparietal Diameter: 8 cm: 32 weeks and 1 day: 26th percentile/ Head Circumference: 30.7 cm: 34 weeks and 2 days: 53rd percentile/ Abdominal Circumference: 30.1 cm: 34 weeks and 1 day: 86 percentile/ Femur Length: 6.7 cm: 33 weeks and 2 days: 52nd percentile/ ESTIMATED WEIGHT: 2237 g plus/-336 g ESTIMATED WEIGHT PERCENTILE (24+ weeks): 69 ESTIMATED GESTATIONAL AGE: Baseline: 32 weeks and 5 days By Ultrasound: 33 weeks and 3 days ESTIMATED DATE OF DELIVERY: Baseline: February 06, 2025 By Ultrasound: February 01, 2025 BIOPHYSICAL ASSESSMENT: Amniotic Fluid Volume: 3.9 Amniotic Fluid Index: 10.5 (8-24 cm normal range) Cardiac Motion: 164 beats per minute (average) Trunk and Limb Motion: Present. MATERNAL ANATOMY: Adnexa: Neither maternal ovary is successfully identified. Cervical Length (if measured): 4 cm US/OB Limited With Biometrics IMPRESSION: Single live intrauterine gestation with a mean gestational age of 33 weeks and 3 days. Reading Location: [place] [address] CC: RACHAEL Ghosh; MING Ruiz Orientation And Mobility Specialist: Signed Normal [facility] Endocrinology Visit Reporton 12-16-2024 Endocrinology Visit Report [facility] [address] [place] [address] OFFICE VISIT Date of Service: 12/16/24 MR#: [id number] Acct: [id number] Name: AZAEL SULTANA Rep #: [id number] : 2000 Provider: Shaneka Dooley Age/Sex: 24/F Location: [facility] Status: Signed Intake Vital Signs 11/11/24 15:03 12/11/24 15:58 12/16/24 10:39 Height 5 ft 3 in 5 ft 3 in 5 ft 3 in Weight: 267 lb BMI 47.2 BP 120/77 Blood Pressure Location Lt brachial Position Sitting Pulse 88 Pulse Source Monitor Pulse Oximetry (%) 97 Oxygen Delivery Method room air Intake Visit Reasons: Gestational Diabetes Chief Complaint: GDM Cane Loader Required: No Accompanied by: Self Is patient in pain?: No Allergies adhesive tape Allergy (Mild, Verified 12/16/24 10:40) Rash Medications ???Medication ???Instructions ???Recorded ???Confirmed ???Type multivit-min no.71-iron fum 28 300 cap PO DAILY 3 12/16/24 History mg-folate no.1 1 mg-dha 300 mg capsule (PNV-Clothier) ondansetron 4 mg disintegrating 4 mg PO Q4H PRN nausea and 4 12/16/24 Rx tablet vomiting #60 tabs metoclopramide HCl 10 mg tablet 10 mg PO TID nausea #90 tabs 08/2712/16/24 Rx (Reglan) 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 sensor (FreeStyle #1 ea 12/03/24 12/16/24 Rx Dot 3 Sensor device) 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,hand gluer and slicer, cont #1 ea 12/03/24 12/16/24 Rx (FreeStyle Dot 3 Jenners) metformin 1,000 mg tablet 1,000 mg PO BID #60 tabs 12/16/24 12/16/24 Rx Patient : Yes (32wks 5days) PFSH Medical History Seasonal allergies Hx of chlamydia infection Adopted Chlamydia infection affecting Anxiety Surgical History History of dental surgery Family History Mother Diabetes Grandfather Diabetes Social History adopted: Yes (limited family medical history known) household members: spouse, family and children number of children: 2 current occupational status: employed current occupation: [employer] current occupational exposures/hazards: No pets and animals: Yes pets and animals: dog(s) history of recent travel: No sexually active: Yes Smoking Status: Former smoker quit date: 10/30/22 how long ago did patient quit smokin year ago quit status: quit date established alcohol intake: former details: social drinking prior to substance use type: marijuana well-balanced diet: about half the time caffeine: Yes Type: carbonated beverages Number of servings: 1 eating out: 1-3 times/week during the past year weight has: increased > 10 lbs what type of physical activity do you participate in: none matt/adventist: None seatbelt use: always do you feel safe at home: Yes additional social history: Patient works at [employer]- Works at [employer] Female Reproductive History Menstrual Ab spontaneous: 1 HPI HPI Chief Complaint: GDM Details: AZAEL SULTANA, is a 24 F who presents to the office today for follow up. She saw me in 2022 for GDM. She is 33 weeks . She is wearing Dot CGM. Fasting numbers are > 100. She is 97% time in range. Her diet is poor. Yesterday she had [employer] for lunch, 2 meatball subs for dinner and a Nutty bar for a snack. She lost her insurance and she doesn't have funds. She can't get groceries until Sunday. She says she won't be able to pay for insulin. ROS Const Constitutional: No fatigue, weakness or weight change Cardio Cardiology: No chest pain at rest, chest pain with exertion or shortness of breath Musc Musculoskeletal: No numbness Neuro Neurology: No weakness or numbness Skin Skin: No wounds Endo Endocrine: No fatigue or weight change Exam Const General: cooperative, healthy appearing, comfortable, no acute distress, well developed and not cushingoid Nutritional Appearance: well nourished and obese Orientation: alert, awake and oriented x3 HENMT Head: normal to inspection Ears: hearing grossly normal bilaterally Nose: external nose normal Mouth: oral mucosae normal Eyes General: appearance normal, both eyes and all related structures Alignment and Position: alignment normal Periorbital: periorbital findings normal Eyelids: eyelids normal Conjunctivae: conjunctivae normal Neck Neck: normal visual inspection Neck mass: No Chest Chest palpation inspection: normal inspection of the chest Resp Effort Inspection: normal respiratory effort, able to speak in complete sentences, symmetric chest movement, no audible wheezes and no cough Cardio Rate (more content not included)... Normal [facility] - Chemistry and C hemistry - challengeOrdered By: Anisa Blackmon on 12-11-2024 Glucose Ql (U) Negative [facility] - UrinalysisOrder ed By: Anisa Blackmon on 12-11-2024 Protein Ql (U) Negative [facility] [employer] Office Visit Reporton 12-11-2024 Crm [employer] Executive Office Visit Report [facility]'s [address], [address] [place] [address] OFFICE VISIT Date of Service: 12/11/24 MR#: [id number] Acct: [id number] Name: AZAEL SULTANA Rep #: [id number] : 2000 Provider: MING cordero Age/Sex: 24/F Location: [facility] ADDENDUM by Chelsie Garcia on 12/11/24 at 1620 Office Procedure Documentation entered by Chelsie Garcia 12/11/24 16:20: Immunizations Adacel(Tdap Adolesn/Adult)(PF) 2 Lf-(2.5-5-3-5)-5 Lf/0.5 mL IM syringe Performing Provider: Anisa Blackmon INDUSTRIAL PSYCHOLOGY PROFESSOR, MING Performing Location: [facility] [place] [facility] Administered by: Chelsie Garcia on 12/11/24 16:19 Dose Route Admin Location Dispensed Lot Number Expiration Date [place] Man ufacturer 0.5 mL IM Left Deltoid 0.5 mL [id number] 11/29/25 75156-097-88 [employer] VIS Given Date VIS Provided VIS Publication Date 12/11/24 Single Vaccine 24 Eligibility Eligibility Date Funding Source Not Applicable Date cc: * Signed Intake Vital Signs 07/03/24 13:01 11/11/24 15:03 12/11/24 15:51 12/11/24 15:58 Height 5 ft 3 in 5 ft 3 in 5 ft 3 in 5 ft 3 in Weight: 263 lb 4 oz BMI 46.6 BP 124/78 H Intake Visit Reasons: 32 WK OB Chief Complaint: 32 Week OB Cane Loader Required: No Is patient in pain?: No Allergies adhesive tape Allergy (Mild, Verified 12/11/24 15:49) Rash Medications ???Medication ???Instructions ???Recorded ???Confirmed ???Type multivit-min no.71-iron fum 28 300 cap PO DAILY 3 12/11/24 History mg-folate no.1 1 mg-dha 300 mg capsule (PNV-Clothier) ondansetron 4 mg disintegrating 4 mg PO Q4H PRN nausea and 4 12/11/24 Rx tablet vomiting #60 tabs metoclopramide HCl 10 mg tablet 10 mg PO TID nausea #90 tabs 08/2712/11/24 Rx (Reglan) flash glucose scanning reader #1 ea 11/12/24 12/11/24 Rx (FreeStyle Dot 2 Jenners) flash glucose sensor (FreeStyle #1 ea 11/12/24 12/11/24 Rx Dot 2 Sensor kit) 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 sensor (FreeStyle #1 ea 12/03/24 12/11/24 Rx Dot 3 Sensor device) 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,hand gluer and slicer, cont #1 ea 12/03/24 12/11/24 Rx (FreeStyle Dot 3 Jenners) Last Menstrual Period: 05/02/24 Zika: Zika virus screening: Negative : No PFSH PFSH Medical History Seasonal allergies Hx of chlamydia infection Adopted Chlamydia infection affecting Anxiety Surgical History History of dental surgery Family History Mother Diabetes Grandfather Diabetes Social History adopted: Yes (limited family medical history known) household members: spouse, family and children number of children: 2 current occupational status: employed current occupation: [employer] current occupational exposures/hazards: No pets and animals: Yes pets and animals: dog(s) history of recent travel: No sexually active: Yes Smoking Status: Former smoker quit date: 10/30/22 how long ago did patient quit smokin year ago quit status: quit date established alcohol intake: former details: social drinking prior to substance use type: marijuana well-balanced diet: about half the time caffeine: Yes Type: carbonated beverages Number of servings: 1 eating out: 1-3 times/week during the past year weight has: increased > 10 lbs what type of physical activity do you participate in: none matt/adventist: None seatbelt use: always do you feel safe at home: Yes additional social history: Patient works at [employer]- Works at [employer] History 4 Elective abortions Hx Para 2 Spontaneous abortions 1 Hx # Term Pregnancies 2 Ectopic pregnancies Hx # Pregnancies Multiple births # of living children 2 Past Pregnancies Del. Date Name GA/Weeks Outcome Route Bth Weight Infant Gen Labor Lgth Anesthesia Del Locatn Provider FOB 07/20/20 Andre 37 live - full term vacuum 8# 11oz Male [facility] Myke ellison 08/20/23 Radames Elizondo 38 live - full term 7lbs 8oz Male [facility] SM Delivery Date: 07/20/20 Last Updated by: Fadumo Zelaya MD IOL pre-eclampsia VAVD triple I, shoulder dystocia Delivery Date: 08/20/23 Last Updated by: Fadumo Zelaya MD secondary to shoulder dystocia with the first HPI 32 WK OB Details: AZAEL SULTANA is a 24 year old who presents for routine OB visit. OB Visit ANNA MARIE Calculator Estimated Delivery Date Method Current WG Current Estimate 02/06/25 LMP (Certain) 31w 6d Other (more content not included)... Normal [facility] Absolute lymphocyte countOrd ered By: Marietta Ghosh on 11-11-2024 Lymphocytes Auto (Unsp spec) [#/Vol] 1.79 10*3/uL 0.83-4.51 [facility] Absolute neutrophil countOrd ered By: Marietta Ghosh on 11-11-2024 Neutrophils (Bld) [#/Vol] 8.6 10*3/uL High 2.0-7.7 [facility] Automated lymphocyte count a s percentage of total leukocytesOrdered By: Marietta Ghosh on 11-11-2024 Lymphocytes/100 WBC Auto (Unsp spec) 16.0 % Low 19-41 [facility] Basophil percentageOrdered B y: Marietta Ghosh on 11-11-2024 Basophils/100 WBC (Bld) 0.5 % 0-1 [facility] CBC W/Diff, Automatedon 10-30 Absolute Lymph 1.79 X10 3/uL Normal 0.83-4.51 [facility] Comment on above: Performed By: #### L 3890.6006, L100.0100, L501.0250, L509.8002 #### [facility] [address] [place], [address] Absolute Neut 8.6 X10 3/uL High 2.0-7.7 [facility] Comment on above: Performed By: #### L 3890.6006, L100.0100, L501.0250, L509.8002 #### [facility] [address] [place], [address] Basophils/100 WBC (Bld) 0.5 % Normal 0-1 [facility] Comment on above: Performed By: #### L 3890.6006, L100.0100, L501.0250, L509.8002 #### [facility] [address] [place], [address] Eosinophils/100 WBC (Bld) 1.0 % Normal 0-5 [facility] Comment on above: Performed By: #### L 3890.6006, L100.0100, L501.0250, L509.8002 #### [facility] [address] [place], [address] Erythrocyte distribution width (RBC) [Ratio] 14.0 % Normal 11.6-14.6 [facility] Comment on above: Performed By: #### L 3890.6006, L100.0100, L501.0250, L509.8002 #### [facility] [address] [place], [address] Hematocrit (Bld) [Volume fraction] 35.7 % Low 37-47 [facility] Comment on above: Performed By: #### L 3890.6006, L100.0100, L501.0250, L509.8002 #### [facility] [address] [place], [address] Hemoglobin (Bld) [Mass/Vol] 11.8 g/dL Low 12.0-15.0 [facility] Comment on above: Performed By: #### L 3890.6006, L100.0100, L501.0250, L509.8002 #### [facility] [address] [place], [address] IG% 2.100 High 0.0-0.9 [facility] Comment on above: Result Comment: IG% - Immature Granulocytes (promyelocytes, myelocytes and metamyelocytes) > 1% indicates that a LEFT SHIFT is Present. Performed By: #### L 3890.6006, L100.0100, L501.0250, L509.8002 #### [facility] [address] [place], [address] Lymphocytes/100 WBC (Bld) 16.0 % Low 19-41 [facility] Comment on above: Performed By: #### L 3890.6006, L100.0100, L501.0250, L509.8002 #### [facility] [address] [place], [address] MCH (RBC) [Entitic mass] 29.6 pg Normal 27.0-32.0 [facility] Comment on above: Performed By: #### L 3890.6006, L100.0100, L501.0250, L509.8002 #### [facility] [address] [place], [address] MCHC (RBC) [Mass/Vol] 33.1 g/dL Normal 32-36 [facility] Comment on above: Performed By: #### L 3890.6006, L100.0100, L501.0250, L509.8002 #### [facility] [address] [place], [address] MCV (RBC) [Entitic vol] 89.7 fL Normal 81-99 [facility] Comment on above: Performed By: #### L 3890.6006, L100.0100, L501.0250, L509.8002 #### [facility] [address] [place], [address] Monocytes/100 WBC (Bld) 3.8 % Normal 0-10 [facility] Comment on above: Performed By: #### L 3890.6006, L100.0100, L501.0250, L509.8002 #### [facility] [address] [place], [address] Neutrophils/100 WBC (Bld) 76.6 % High 47-70 [facility] Comment on above: Performed By: #### L 3890.6006, L100.0100, L501.0250, L509.8002 #### [facility] [address] [place], [address] Nucleated RBC (Bld) [#/Vol] 0 10*3/uL Normal 0-5 [facility] Comment on above: Performed By: #### L 3890.6006, L100.0100, L501.0250, L509.8002 #### [facility] [address] [place], [address] Platelet mean volume (Bld) [Entitic vol] 10.7 fL Normal 6.2-12.0 [facility] Comment on above: Performed By: #### L 3890.6006, L100.0100, L501.0250, L509.8002 #### [facility] [address] [place], [address] Platelets (Bld) [#/Vol] 347 10*3/uL Normal 150-450 [facility] Comment on above: Performed By: #### L 3890.6006, L100.0100, L501.0250, L509.8002 #### [facility] [address] [place], [address] RBC (Bld) [#/Vol] 3.98 10*6/uL Low 4.2-5.4 [facility] Comment on above: Performed By: #### L 3890.6006, L100.0100, L501.0250, L509.8002 #### [facility] [address] [place], [address] RDW SD 45.7 fl High 35.1-43.9 [facility] Comment on above: Performed By: #### L 3890.6006, L100.0100, L501.0250, L509.8002 #### [facility] [address] [place], [address] WBC (Bld) [#/Vol] 11.2 10*3/uL High 4.4-11.0 [facility] Comment on above: Performed By: #### L 3890.6006, L100.0100, L501.0250, L509.8002 #### [facility] [address] [place], [address] Eosinophil percentageOrdered By: Marietta Ghosh on 11-11-2024 Eosinophils/100 WBC (Bld) 1.0 % 0-5 [facility] Erythrocyte distribution wid th ratioOrdered By: Marietta Ghosh on 11-11-2024 Erythrocyte distribution width (RBC) [Ratio] 14.0 % 11.6-14.6 [facility] Erythrocyte distribution wid th standard deviationOrdered By: Marietta Ghosh on 11-11-2024 Erythrocyte distribution width (RBC) [Ratio] 45.7 fl High 35.1-43.9 [facility] Glucose Challenge Gest 1H 50 qi 11-11-2024 GLU GEST 50g 1H 194 mg/dL High 70-140 [facility] Comment on above: Performed By: #### L 3890.6006, L100.0100, L501.0250, L509.8002 #### [facility] [address] [place], [address] Glucose measurement at 2 marvin rs post-dose gestational glucose tolerance testOrdered By: Marietta Ghosh on 11-11-2024 Glucose [Mass/Vol] 194 mg/dL High 70-140 [facility] HIVon 11-11-2024 HIV Non-Reactive Normal Nonreactive [facility] Comment on above: Result Comment: Non- Reactive Reactive Repeatedly reactive samples must be confirmed according to CDC recommended confirmatory algorithms. The subresults for either HIVAG or AHIV can be used as an aid in the selection of the confirmation algorithm for reactive samples. Send out specimens with Reactive results to [facility] for confirmation. Order the HIV antibody detection and differentiation: lc#[id number] Performed By: #### L 3890.6006, L100.0100, L501.0250, L509.8002 #### [facility] [address] [place], [address] Hematocrit Auto (Bld) [Volum e fraction]Ordered By: Mairetta Ghosh on 11-11-2024 Hematocrit (Bld) [Volume fraction] 35.7 % Low 37-47 [facility] Hemoglobin measurementOrdere d By: Marietta Ghosh on 11-11-2024 Hemoglobin (Bld) [Mass/Vol] 11.8 g/dL Low 12.0-15.0 [facility] Immature granulocytes/100 WB C Auto (Bld)Ordered By: Marietta Ghosh on 11-11-2024 Immature granulocytes/100 WBC (Bld) 2.100 % High 0.0-0.9 [facility] Comment on above: IG% - Immature Granu locytes (promyelocytes, myelocytes and metamyelocytes) > 1% indicates that a LEFT SHIFT is Present. Laboratory - Chemistry and C hemistry - challengeOrdered By: Marietta Ghosh on 11-11-2024 Glucose Ql (U) Negative [facility] - UrinalysisOrder ed By: Marietta Ghosh on 11-11-2024 Protein Ql (U) Negative [facility] MCV (mean corpuscular volume ) determinationOrdered By: Marietta Ghosh on 11-11-2024 MCV (RBC) [Entitic vol] 89.7 fL 81-99 [facility] Mean corpuscular hemoglobin (MCH) determinationOrdered By: Marietta Ghosh on 11-11-2024 MCH (RBC) [Entitic mass] 29.6 pg 27.0-32.0 [facility] Mean corpuscular hemoglobin concentration (MCHC) determinationOrdered By: Marietta Ghosh on 11-11-2024 MCHC (RBC) [Mass/Vol] 33.1 g/dL 32-36 [facility] Mean platelet volume determi nationOrdered By: Marietta Ghosh on 11-11-2024 Platelet mean volume (Bld) [Entitic vol] 10.7 fL 6.2-12.0 [facility] Monocyte percentageOrdered B y: Marietta Ghosh on 11-11-2024 Monocytes/100 WBC (Bld) 3.8 % 0-10 [facility] Neutrophil percentageOrdered By: Marietta Ghosh on 11-11-2024 Neutrophils/100 WBC (Bld) 76.6 % High 47-70 [facility] No Panel InformationOrdered By: Marietta Ghosh on 11-11-2024 HIV (1&2) Antibody Non-Reactive Nonreactive [facility] Comment on above: Non-ReactiveReactive Repeatedly reactive samples must be confirmed according to CDC recommended confirmatory algorithms. The subresults for either HIVAG or AHIV can be used as an aid in the selection of the confirmation algorithm for reactive samples.Send out specimens with Reactive results to [facility] for confirmation.Order the HIV antibody detection and differentiation: #[id number] Nucleated red blood cell per centageOrdered By: Marietta Ghosh on 11-11-2024 Nucleated RBC/100 WBC (Bld) [Ratio] 0 % 0-5 [facility] [employer] Office Visit Reporton 11-11-2024 Crm Marketing Executive Office Visit Report [facility] [address], [facility] [address] [place] [address] OFFICE VISIT Date of Service: 11/11/24 MR#: [id number] Acct: [id number] Name: KAYYAZAEL MUÑOZ Rep #: [id number] : 2000 Provider: RACHAEL Gutiérrez ams Age/Sex: 24/F Location: [facility] Status: Signed Intake Vital Signs 10/31/24 14:10 11/11/24 15:03 Height 5 ft 3 in 5 ft 3 in Weight: 264 lb 4 oz 261 lb 8 oz BMI 46.7 46.3 BP 129/84 H 120/82 H Intake Visit Reasons: 28 wk ob/glucose Chief Complaint: 28wk OB Cane Loader Required: No Is patient in pain?: No Allergies adhesive tape Allergy (Mild, Verified 11/11/24 15:01) Rash Medications ???Medication ???Instructions ???Recorded ???Confirmed ???Type multivit-min no.71-iron fum 28 300 cap PO DAILY 3 11/11/24 History mg-folate no.1 1 mg-dha 300 mg capsule (PNV-Clothier) ondansetron 4 mg disintegrating 4 mg PO Q4H PRN nausea and 4 11/11/24 Rx tablet vomiting #60 tabs metoclopramide HCl 10 mg tablet 10 mg PO TID nausea #90 tabs 08/2711/11/24 Rx (Reglan) Last Menstrual Period: 05/02/24 : No Have you fallen in the past year?: No PFSH PFSH Medical History Seasonal allergies Hx of chlamydia infection Adopted Chlamydia infection affecting Anxiety Surgical History History of dental surgery Family History Mother Diabetes Grandfather Diabetes Social History adopted: Yes (limited family medical history known) household members: spouse, family and children number of children: 2 current occupational status: employed current occupation: [employer] current occupational exposures/hazards: No pets and animals: Yes pets and animals: dog(s) history of recent travel: No sexually active: Yes Smoking Status: Former smoker quit date: 10/30/22 how long ago did patient quit smokin year ago quit status: quit date established alcohol intake: former details: social drinking prior to substance use type: marijuana well-balanced diet: about half the time caffeine: Yes Type: carbonated beverages Number of servings: 1 eating out: 1-3 times/week during the past year weight has: increased > 10 lbs what type of physical activity do you participate in: none matt/adventist: None seatbelt use: always do you feel safe at home: Yes additional social history: Patient works at [employer]- Works at [employer] History 4 Elective abortions Hx Para 2 Spontaneous abortions 1 Hx # Term Pregnancies 2 Ectopic pregnancies Hx # Pregnancies Multiple births # of living children 2 Past Pregnancies Del. Date Name GA/Weeks Outcome Route Bth Weight Infant Gen Labor Lgth Anesthesia Del Locatn Provider FOB 07/20/20 Andre 37 live - full term vacuum 8# 11oz Male [facility] Myke ellison 08/20/23 Radames Elizondo 38 live - full term 7lbs 8oz Male [facility] SM Delivery Date: 07/20/20 Last Updated by: Fadumo Zelaya MD IOL pre-eclampsia VAVD triple I, shoulder dystocia Delivery Date: 08/20/23 Last Updated by: Fadumo Zelaya MD secondary to shoulder dystocia with the first HPI 28 wk ob/glucose Details: AZAEL SULTANA is a 24 year old who presents for routine OB visit. OB Visit ANNA MARIE Calculator Estimated Delivery Date Method Current WG Current Estimate 02/06/25 LMP (Certain) 27w 4d Other Estimates 02/05/25 Ultrasound #1 27w 5d Expected Delivery Route/Plan Labor Preferences- CB/BF classes: [] labor support person: [] labor intervention preferences: [] pain management options preferred: [] cut cord/dad catch: [] : [] PP control planned: [] discussed possible routes of delivery and associated risks: [] special requests: [] Specific Issue/Plans Covid status: [] Flu vaccine: [] Tdap vaccine: [] Rhogam: [] LARC form signed: [] Problem list reviewed and updated with the most current plan of care details and appropriate orders placed. Relevant counseling for the gestational age provided. Continue routine care and follow up unless otherwise noted in visit notes/problem list details Initial Weight: 247 lb Date -???-???-???-???-???-?? ?-???-???-???-???-???-? ??- EGA Weight BP Urine Prot -???-???-???-???-???-?? ?-???-???-???-???-???-? ??- Glucose FHR FuHt Pres Dilation -???-???-???-???-???-?? ?-???-???-???-???-???-? ??- Effaced St Visit Note 07/03/24 -???-???-???-???-???-?? ?-???-???-???-???-???-? ??- 8w 6d 247 lb 6 oz (+6 oz) 127/78 -???-???-???-???-???-?? ?-??? (more content not included)... Normal [facility] Platelet countOrdered By: Jovan Ghosh on 11-11-2024 Platelets (Bld) [#/Vol] 347 10*3/uL 150-450 [facility] RBC Auto (Bld) [#/Vol]Ordere d By: Marietta Ghosh on 11-11-2024 RBC (Bld) [#/Vol] 3.98 10*6/uL Low 4.2-5.4 [facility] Syphilis Antibodieson 2024 Syphilis Abs Non-Reactive Normal Nonreactive [facility] Comment on above: Performed By: #### L 3890.6006, L100.0100, L501.0250, L509.8002 #### [facility] [address] [place], [place], [id number] White blood cell (WBC) count Ordered By: Marietta Ghosh on 11-11-2024 WBC (Bld) [#/Vol] 11.2 10*3/uL High 4.4-11.0 [facility] - Chemistry and C hemistry - challengeOrdered By: Marietta Ghosh on 10-31-2024 Glucose Ql (U) Negative [facility] - UrinalysisOrder ed By: Marietta Ghosh on 10-31-2024 Protein Ql (U) Negative [facility] [employer] Office Visit Reporton 10-31-2024 Crm Marketing Executive Office Visit Report [facility] [address], [address] [place] [address] OFFICE VISIT Date of Service: 10/31/24 MR#: [id number] Acct: [id number] Name: AZAEL SULTANA Rep #: [id number] : 2000 Provider: RACHAEL Gutiérrez ams Age/Sex: 23/F Location: [facility] Status: Signed Intake Vital Signs 07/03/24 13:01 10/02/24 15:00 10/31/24 14:10 Height 5 ft 3 in 5 ft 3 in 5 ft 3 in Weight: 264 lb 4 oz BMI 46.7 BP 129/84 H Intake Visit Reasons: 24 WK OB Chief Complaint: 26wk OB Cane Loader Required: No Is patient in pain?: No Allergies adhesive tape Allergy (Mild, Verified 10/31/24 14:08) Rash Medications ???Medication ???Instructions ???Recorded ???Confirmed ???Type multivit-min no.71-iron fum 28 300 cap PO DAILY 3 10/31/24 History mg-folate no.1 1 mg-dha 300 mg capsule (PNV-Clothier) ondansetron 4 mg disintegrating 4 mg PO Q4H PRN nausea and 4 10/31/24 Rx tablet vomiting #60 tabs metoclopramide HCl 10 mg tablet 10 mg PO TID nausea #90 tabs 08/2710/31/24 Rx (Reglan) Last Menstrual Period: 05/02/24 : No PFSH PFSH Medical History Seasonal allergies Hx of chlamydia infection Adopted Chlamydia infection affecting Anxiety Surgical History History of dental surgery Family History Mother Diabetes Grandfather Diabetes Social History adopted: Yes (limited family medical history known) household members: spouse, family and children number of children: 2 current occupational status: employed current occupation: [employer] current occupational exposures/hazards: No pets and animals: Yes pets and animals: dog(s) history of recent travel: No sexually active: Yes Smoking Status: Former smoker quit date: 10/30/22 how long ago did patient quit smokin year ago quit status: quit date established alcohol intake: former details: social drinking prior to substance use type: marijuana well-balanced diet: about half the time caffeine: Yes Type: carbonated beverages Number of servings: 1 eating out: 1-3 times/week during the past year weight has: increased > 10 lbs what type of physical activity do you participate in: none matt/adventist: None seatbelt use: always do you feel safe at home: Yes additional social history: Patient works at [email or web address]- Works at [employer] History 4 Elective abortions Hx Para 2 Spontaneous abortions 1 Hx # Term Pregnancies 2 Ectopic pregnancies Hx # Pregnancies Multiple births # of living children 2 Past Pregnancies Del. Date Name GA/Weeks Outcome Route Bth Weight Infant Gen Labor Lgth Anesthesia Del Locatn Provider FOB 07/20/20 Andre 37 live - full term vacuum 8# 11oz Male [facility] Myke ellison 08/20/23 Radames Elizondo 38 live - full term 7lbs 8oz Male [facility] SM Delivery Date: 07/20/20 Last Updated by: Fadumo Zelaya MD IOL pre-eclampsia VAVD triple I, shoulder dystocia Delivery Date: 08/20/23 Last Updated by: Fadumo Zelaya MD secondary to shoulder dystocia with the first HPI 24 WK OB Details: AZAEL SULTANA is a 23 year old who presents for routine OB visit. OB Visit ANNA MARIE Calculator Estimated Delivery Date Method Current WG Current Estimate 02/06/25 LMP (Certain) 26w 0d Other Estimates 02/05/25 Ultrasound #1 26w 1d Expected Delivery Route/Plan Labor Preferences- CB/BF classes: [] labor support person: [] labor intervention preferences: [] pain management options preferred: [] cut cord/dad catch: [] : [] PP control planned: [] discussed possible routes of delivery and associated risks: [] special requests: [] Specific Issue/Plans Covid status: [] Flu vaccine: [] Tdap vaccine: [] Rhogam: [] LARC form signed: [] Problem list reviewed and updated with the most current plan of care details and appropriate orders placed. Relevant counseling for the gestational age provided. Continue routine care and follow up unless otherwise noted in visit notes/problem list details Initial Weight: 247 lb Date -???-???-???-???-???-?? ?-???-???-???-???-???-? ??- EGA Weight BP Urine Prot -???-???-???-???-???-?? ?-???-???-???-???-???-? ??- Glucose FHR FuHt Pres Dilation -???-???-???-???-???-?? ?-???-???-???-???-???-? ??- Effaced St Visit Note 07/03/24 -???-???-???-???-???-?? ?-???-???-???-???-???-? ??- 8w 6d 247 lb 6 oz (+6 oz) 127/78 -???-???-???-???-???-?? ?-???-???-???-???-???-? ??- 174 -???-???-???-???-???-?? ?- (more content not included)... Normal [facility] [employer] Office Visit Reporton 10-02-2024 Crm Marketing Executive Office Visit Report [facility]'s [address], [address] [place] [address] OFFICE VISIT Date of Service: 10/02/24 MR#: [id number] Acct: [id number] Name: AZAEL SULTANA Rep #: [id number] : 2000 Provider: RACHAEL Gutiérrez ams Age/Sex: 23/F Location: [facility] Status: Signed Intake Vital Signs 08/27/24 15:32 10/02/24 15:00 10/02/24 15:00 Height 5 ft 3 in 5 ft 3 in 5 ft 3 in Weight: 258 lb 2 oz BMI 45.7 BP 122/82 H Intake Visit Reasons: 20WK OB Chief Complaint: 20wk ob Cane Loader Required: No Is patient in pain?: No Allergies adhesive tape Allergy (Mild, Verified 10/02/24 14:54) Rash Medications ???Medication ???Instructions ???Recorded ???Confirmed ???Type multivit-min no.71-iron fum 28 300 cap PO DAILY 3 10/02/24 History mg-folate no.1 1 mg-dha 300 mg capsule (PNV-Clothier) ondansetron 4 mg disintegrating 4 mg PO Q4H PRN nausea and 4 10/02/24 Rx tablet vomiting #60 tabs metoclopramide HCl 10 mg tablet 10 mg PO TID nausea #90 tabs 08/2710/02/24 Rx (Reglan) Last Menstrual Period: 05/02/24 : No PFSH PFSH Medical History Seasonal allergies Hx of chlamydia infection Adopted Chlamydia infection affecting Anxiety Surgical History History of dental surgery Family History Mother Diabetes Grandfather Diabetes Social History adopted: Yes (limited family medical history known) household members: spouse, family and children number of children: 2 current occupational status: employed current occupation: [employer] [place] current occupational exposures/hazards: No pets and animals: Yes pets and animals: dog(s) history of recent travel: No sexually active: Yes Smoking Status: Former smoker quit date: 10/30/22 how long ago did patient quit smokin year ago quit status: quit date established alcohol intake: former details: social drinking prior to substance use type: marijuana well-balanced diet: about half the time caffeine: Yes Type: carbonated beverages Number of servings: 1 eating out: 1-3 times/week during the past year weight has: increased > 10 lbs what type of physical activity do you participate in: none matt/adventist: None seatbelt use: always do you feel safe at home: Yes additional social history: Patient works at [employer]- Works at [employer] History 4 Elective abortions Hx Para 2 Spontaneous abortions 1 Hx # Term Pregnancies 2 Ectopic pregnancies Hx # Pregnancies Multiple births # of living children 2 Past Pregnancies Del. Date Name GA/Weeks Outcome Route Bth Weight Infant Gen Labor Lgth Anesthesia Del Locatn Provider FOB 07/20/20 Andre 37 live - full term vacuum 8# 11oz Male [facility] Myke ellison 08/20/23 Radames Elizondo 38 live - full term 7lbs 8oz Male [facility] SM Delivery Date: 07/20/20 Last Updated by: Fadumo Zelaya MD IOL pre-eclampsia VAVD triple I, shoulder dystocia Delivery Date: 08/20/23 Last Updated by: Fadumo Zelaya MD secondary to shoulder dystocia with the first HPI 20WK OB Details: AZAEL SULTANA is a 23 year old who presents for routine OB visit. OB Visit ANNA MARIE Calculator Estimated Delivery Date Method Current WG Current Estimate 02/06/25 LMP (Certain) 21w 6d Other Estimates 02/05/25 Ultrasound #1 22w 0d Expected Delivery Route/Plan Labor Preferences- CB/BF classes: [] labor support person: [] labor intervention preferences: [] pain management options preferred: [] cut cord/dad catch: [] : [] PP control planned: [] discussed possible routes of delivery and associated risks: [] special requests: [] Specific Issue/Plans Covid status: [] Flu vaccine: [] Tdap vaccine: [] Rhogam: [] LARC form signed: [] Problem list reviewed and updated with the most current plan of care details and appropriate orders placed. Relevant counseling for the gestational age provided. Continue routine care and follow up unless otherwise noted in visit notes/problem list details Initial Weight: 247 lb Date -???-???-???-???-???-?? ?-???-???-???-???-???-? ??- EGA Weight BP Urine Prot -???-???-???-???-???-?? ?-???-???-???-???-???-? ??- Glucose FHR FuHt Pres Dilation -???-???-???-???-???-?? ?-???-???-???-???-???-? ??- Effaced St Visit Note 07/03/24 -???-???-???-???-???-?? ?-???-???-???-???-???-? ??- 8w 6d 247 lb 6 oz (+6 oz) 127/78 -???-???-???-???-???-?? ?-???-???-???-???-???-? ??- 174 -???-???-???-???-???-?? ?-?? (more content not included)... Normal [facility] SHOULDER COMPLETE RTon 09-23 SHOULDER COMPLETE RT [place] [phone] Patient: AZAEL SULTANA Phone#: : [phone] Age: 23 Gender: F Pt. Type: Out Account: [id number] Location: 2 Ordering: BIRD RUIZ Exam Date: 09/23/2024/14:30 Family Phys: Charge Code: 564504 Physician: [place] Order #: [id number] Dose#: PROCEDURE: X-RAY SHOULDER COMPLETE RT MIN 2 VIEWS COMPARISON: None. INDICATIONS: Right anterior shoulder pain. FINDINGS: BONES: Normal. No significant arthropathy or acute abnormality. Humeral head is normal in contour. Glenohumeral joint space is maintained. No fracture or dislocation. SOFT TISSUES: Negative. No visible soft tissue swelling. EFFUSION: None visible. OTHER: Negative. CONCLUSION: 1. Unremarkable right shoulder radiograph Dictated by: Celine Fraser MD on 09/23/2024 at 15:44 Approved by: Celine Fraser MD on 09/23/2024 at 15:45 Normal [facility] [employer] Executive Office Visit Reporton 08-27-2024 Crm Marketing Executive Office Visit Report [facility]'s [address], [address] [place] [address] OFFICE VISIT Date of Service: 08/27/24 MR#: [id number] Acct: [id number] Name: AZAEL SULTANA Rep #: [id number] : 2000 Provider: Dr. Fadumo smith MD Age/Sex: 23/F Location: [facility] Status: Signed Intake Vital Signs 07/03/24 13:01 08/01/24 11:40 08/27/24 15:30 08/27/24 15:32 Height 5 ft 3 in 5 ft 3 in 5 ft 3 in 5 ft 3 in Weight: 255 lb 4 oz BMI 45.2 BP 135/82 H Intake Visit Reasons: 16 WK OB Cane Loader Required: No Is patient in pain?: No Feel stressed/tense/nervous/ anxious/difficulty sleeping: not at all Allergies adhesive tape Allergy (Mild, Verified 08/27/24 15:30) Rash Medications ???Medication ???Instructions ???Recorded ???Confirmed ???Type multivit-min no.71-iron fum 28 300 cap PO DAILY 3 08/27/24 History mg-folate no.1 1 mg-dha 300 mg capsule (PNV-Clothier) ondansetron 4 mg disintegrating 4 mg PO Q4H PRN nausea and 4 08/27/24 Rx tablet vomiting #60 tabs promethazine 25 mg tablet 25 mg PO Q6H PRN headache #60 tabs 08/01/24 08/27/24 Rx metoclopramide HCl 10 mg tablet 10 mg PO TID nausea #90 tabs 08/2708/27/24 Rx (Reglan) Last Menstrual Period: 05/02/24 Zika: Zika virus screening: Negative : No PFSH PFSH Medical History Seasonal allergies Hx of chlamydia infection Adopted Chlamydia infection affecting Anxiety Surgical History History of dental surgery Family History Mother Diabetes Grandfather Diabetes Social History adopted: Yes (limited family medical history known) household members: spouse, family and children number of children: 2 current occupational status: employed current occupation: [employer] current occupational exposures/hazards: No pets and animals: Yes pets and animals: dog(s) history of recent travel: No sexually active: Yes Smoking Status: Former smoker quit date: 10/30/22 how long ago did patient quit smokin year ago quit status: quit date established alcohol intake: former details: social drinking prior to substance use type: marijuana well-balanced diet: about half the time caffeine: Yes Type: carbonated beverages Number of servings: 1 eating out: 1-3 times/week during the past year weight has: increased > 10 lbs what type of physical activity do you participate in: none matt/adventist: None seatbelt use: always do you feel safe at home: Yes additional social history: Patient works at [employer]- Works at [employer] History 4 Elective abortions Hx Para 2 Spontaneous abortions 1 Hx # Term Pregnancies 2 Ectopic pregnancies Hx # Pregnancies Multiple births # of living children 2 Past Pregnancies Del. Date Name GA/Weeks Outcome Route Bth Weight Infant Gen Labor Lgth Anesthesia Del Locatn Provider FOB 07/20/20 Andre 37 live - full term vacuum 8# 11oz Male [facility] Myke ellison 08/20/23 Radames Elizondo 38 live - full term 7lbs 8oz Male [facility] SM Delivery Date: 07/20/20 Last Updated by: Fadumo Zelaya MD IOL pre-eclampsia VAVD triple I, shoulder dystocia Delivery Date: 08/20/23 Last Updated by: aFdumo Zelaya MD secondary to shoulder dystocia with the first HPI 16 WK OB Details: AZAEL SULTANA is a 23 year old who presents for routine OB visit. OB Visit ANNA MARIE Calculator Estimated Delivery Date Method Current WG Current Estimate 02/06/25 LMP (Certain) 16w 5d Other Estimates 02/05/25 Ultrasound #1 16w 6d Expected Delivery Route/Plan Labor Preferences- CB/BF classes: [] labor support person: [] labor intervention preferences: [] pain management options preferred: [] cut cord/dad catch: [] : [] PP control planned: [] discussed possible routes of delivery and associated risks: [] special requests: [] Specific Issue/Plans Covid status: [] Flu vaccine: [] Tdap vaccine: [] Rhogam: [] LARC form signed: [] Problem list reviewed and updated with the most current plan of care details and appropriate orders placed. Relevant counseling for the gestational age provided. Continue routine care and follow up unless otherwise noted in visit notes/problem list details Initial Weight: 247 lb Date -???-???-???-???-???-?? ?-???-???-???-???-???-? ??- EGA Weight BP Urine Prot -???-???-???-???-???-?? ?-???-???-???-???-???-? ??- Glucose FHR FuHt Pres Dilation -???-???-???-???-???-?? ?-???-???-???-???-???-? ??- (more content not included)... Normal [facility] Laboratory - Chemistry and C hemistry - challengeOrdered By: Fadumo Zelaya on 08-01-2024 Glucose Ql (U) Negative [facility] - UrinalysisOrder ed By: Fadumo Zelaya on 08-01-2024 Protein Ql (U) Negative [facility] Crm Marketing Executive Office Visit Reporton 08-01-2024 Crm Marketing Executive Office Visit Report [facility] [address], [address] [place] [address] OFFICE VISIT Date of Service: 08/01/24 MR#: [id number] Acct: [id number] Name: AZAEL SULTANA Rep #: [id number] : 2000 Provider: Dr. Fadumo smith MD Age/Sex: 23/F Location: [facility] Status: Signed Intake Vital Signs 03/11/24 08:55 07/03/24 13:01 08/01/24 11:40 Height 5 ft 3 in 5 ft 3 in 5 ft 3 in Weight: 250 lb 6 oz BMI 44.3 BP 124/83 H Intake Visit Reasons: 12wk OB Chief Complaint: 12 wk ob Is patient in pain?: No Allergies adhesive tape Allergy (Mild, Verified 08/01/24 11:47) Rash Medications ???Medication ???Instructions ???Recorded ???Confirmed ???Type multivit-min no.71-iron fum 28 300 cap PO DAILY 3 08/01/24 History mg-folate no.1 1 mg-dha 300 mg capsule (PNV-Clothier) ondansetron 4 mg disintegrating 4 mg PO Q4H PRN nausea and 4 08/01/24 Rx tablet vomiting #60 tabs promethazine 25 mg tablet 25 mg PO Q6H PRN headache #60 tabs 08/01/24 08/01/24 Rx Last Menstrual Period: 05/02/24 PFSH PFSH Medical History Seasonal allergies Hx of chlamydia infection Adopted Chlamydia infection affecting Anxiety Surgical History History of dental surgery Family History Mother Diabetes Grandfather Diabetes Social History adopted: Yes (limited family medical history known) household members: spouse, family and children number of children: 2 current occupational status: employed current occupation: [employer] current occupational exposures/hazards: No pets and animals: Yes pets and animals: dog(s) history of recent travel: No sexually active: Yes Smoking Status: Former smoker quit date: 10/30/22 how long ago did patient quit smokin year ago quit status: quit date established alcohol intake: former details: social drinking prior to substance use type: marijuana well-balanced diet: about half the time caffeine: Yes Type: carbonated beverages Number of servings: 1 eating out: 1-3 times/week during the past year weight has: increased > 10 lbs what type of physical activity do you participate in: none matt/adventist: None seatbelt use: always do you feel safe at home: Yes additional social history: Patient works at [employer]- Works at [employer] History 4 Elective abortions Hx Para 2 Spontaneous abortions 1 Hx # Term Pregnancies 2 Ectopic pregnancies Hx # Pregnancies Multiple births # of living children 2 Past Pregnancies Del. Date Name GA/Weeks Outcome Route Bth Weight Gen Labor Lgth Anesthesia Del Locatn Provider FOB 07/20/20 Andre 37 live - full term vacuum 8# 11oz Male [facility] Myke ellison 08/20/23 Radames Elizondo 38 live - full term 7lbs 8oz Male [facility] SM Delivery Date: 07/20/20 Last Updated by: Angy Ayon IOL pre-eclampsia VAVD triple I HPI 12wk OB Details: AZAEL SULTANA is a 23 year old who presents for routine OB visit. OB Visit ANNA MARIE Calculator Estimated Delivery Date Method Current WG Current Estimate 02/06/25 LMP (Certain) 13w 0d Other Estimates 02/05/25 Ultrasound #1 13w 1d Expected Delivery Route/Plan Labor Preferences- CB/BF classes: [] labor support person: [] labor intervention preferences: [] pain management options preferred: [] cut cord/dad catch: [] : [] PP control planned: [] discussed possible routes of delivery and associated risks: [] special requests: [] Specific Issue/Plans Covid status: [] Flu vaccine: [] Tdap vaccine: [] Rhogam: [] LARC form signed: [] Problem list reviewed and updated with the most current plan of care details and appropriate orders placed. Relevant counseling for the gestational age provided. Continue routine care and follow up unless otherwise noted in visit notes/problem list details Initial Weight: 247 lb Date -???-???-???-???-???-?? ?-???-???-???-???-???-? ??- EGA Weight BP Urine Prot -???-???-???-???-???-?? ?-???-???-???-???-???-? ??- Glucose FHR FuHt Pres Dilation -???-???-???-???-???-?? ?-???-???-???-???-???-? ??- Effaced St Visit Note 07/03/24 -???-???-???-???-???-?? ?-???-???-???-???-???-? ??- 8w 6d 247 lb 6 oz (+6 oz) 127/78 -???-???-???-???-???-?? ?-???-???-???-???-???-? ??- 174 -???-???-???-???-???-?? ?-???-???-???-???-???-? ??- KW- CRL cons with dates. accepts NIPT. KW- CRL cons with dates. accepts N IPT. planning early gct due to hx of GDM and obesity. will start asa at 12 weeks 01 (more content not included)... Normal [facility] HEP B SURFACE AB, QUANT [CCL ]on 07-22-2024 HepB Surface Ab,Qual Negative Normal [facility] Comment on above: Result Comment: No s erological evidence of immunity to Hepatitis B Virus. Performed By: #### 2 [id number] #### [facility],[address] [place] [address] HepB SurfaceAb,Quant <8.00 Normal [facility] Comment on above: Result Comment: <8 m IU/mL: No serological evidence of immunity to Hepatitis B Virus. >/= 8 to <12 mIU/mL: No serological evidence of immunity to Hepatitis B Virus. >/= 12 mIU/mL: Consistent with serological evidence of immunity to Hepatitis B Virus. [facility] [address] [place] [address] Ruben Stephenson III, M.D. [id number] Performed By: #### 2 15848 #### [facility],[address] [place] [address] MEASLES IGG ANTIBODY [CCL]on 07-22-2024 Measles IgG, Qual Positive Normal Positive [facility] Comment on above: Result Comment: The result suggests recent or past exposure to Measles virus or Measles vaccination. The current test does not detect neutralizing antibodies. Positive result may also be seen due to presence of passively-transferred antibodies. Please correlate with patient's history. [place] [id number] Ruben Stephenson III, M.D. [id number] Performed By: #### 2 23438 #### [address] [address] MUMPS IGG AB [CCL]on 025 Mumps IgG, Qual Positive Normal Positive [facility] Comment on above: Result Comment: The result suggests recent or past exposure to Mumps virus or Mumps vaccination. The current test does not detect neutralizing antibodies. Positive result may also be seen due to presence of passively-transferred antibodies. Please correlate with patient's history[place] [address] Ruben Stephenson III, M.D. [id number] Performed By: #### 2 47152 #### [address] [address] RUBELLA IgG ANTIBODY [CCL]on 07-22-2024 Rubella IgG Ab, Qual Positive Normal Positive [facility] Comment on above: Result Comment: The result suggests recent or past exposure to Rubella virus or history of Rubella vaccination. Positive result may also be seen due to presence of passively-transferred antibodies. Please correlate with [place] [address] Ruben Stephenson III, M.D. [id number] Performed By: #### 2 47643 #### [address] [address] VARICELLA ZOSTER IGG AB [CCL ]on 07-22-2024 V. zoster IgG, Qual Positive Normal Positive [facility] Comment on above: Result Comment: The result suggests recent or past exposure to Varicella-Zoster virus or chickenpox vaccination or zoster vaccination. Positive result may also be seen due to presence of passively-transferred antibodies. Please correlate with patient's history. [place] [address] [place] [address] Ruben Stephenson III, M.D. [id number] Performed By: #### 2 08449 #### [facility],[address] [facility] [address] Absolute lymphocyte countOrd ered By: Marietta Ghosh on 07-21-2024 Lymphocytes Auto (Unsp spec) [#/Vol] 1.97 10*3/uL 0.83-4.51 [facility] Absolute neutrophil countOrd ered By: Marietta Ghosh on 07-21-2024 Neutrophils (Bld) [#/Vol] 6.5 10*3/uL 2.0-7.7 [facility] Albumin to globulin ratioOrd ered By: Marietta Ghosh on 07-21-2024 Albumin/Globulin [Mass ratio] 0.7 {ratio} Low 0.9-2.4 [facility] Automated lymphocyte count a s percentage of total leukocytesOrdered By: Marietta Ghosh on 07-21-2024 Lymphocytes/100 WBC Auto (Unsp spec) 21.8 % 19-41 [facility] Basophil percentageOrdered B y: Marietta Ghosh on 07-21-2024 Basophils/100 WBC (Bld) 0.3 % 0-1 [facility] Bilirubin, totalOrdered By: aMrietta Ghosh on 07-21-2024 Bilirubin [Mass/Vol] 0.10 mg/dL Low 0.20-1.00 [facility] Comment on above: For patients on eltr ombopag therapy, use of Dimension Hunter TBIL is not recommended. Blood urea nitrogen (BUN)/cr eatinine ratioOrdered By: Marietta Ghosh on 07-21-2024 Urea nitrogen/Creatinine [Mass ratio] 15.8 mg/mg 04-20 [facility] CBC W/Diff, Automatedon 07-03 Absolute Lymph 1.97 X10 3/uL Normal 0.83-4.51 [facility] Comment on above: Performed By: #### L 509.8000, BTS, L3890.6300, L500.4050, L3890.6100, L100.0100, L501.9985, L900.0098, L505.5000, L509.4005, L3890.6005 ####[facility] [id number] [facility] [place], [address] Absolute Neut 6.5 X10 3/uL Normal 2.0-7.7 [facility] Comment on above: Performed By: #### L 509.8000, BTS, L3890.6300, L500.4050, L3890.6100, L100.0100, L501.9985, L900.0098, L505.5000, L509.4005, L3890.6005 ####[facility] [id number] [facility] [place], [address] Basophils/100 WBC (Bld) 0.3 % Normal 0-1 [facility] Comment on above: Performed By: #### L 509.8000, BTS, L3890.6300, L500.4050, L3890.6100, L100.0100, L501.9985, L900.0098, L505.5000, L509.4005, L3890.6005 ####[facility] [id number] [facility] [place], [address] Eosinophils/100 WBC (Bld) 0.9 % Normal 0-5 [facility] Comment on above: Performed By: #### L 509.8000, BTS, L3890.6300, L500.4050, L3890.6100, L100.0100, L501.9985, L900.0098, L505.5000, L509.4005, L3890.6005 ####[facility] [id number] [facility] [place], [address] Erythrocyte distribution width (RBC) [Ratio] 15.9 % High 11.6-14.6 [facility] Comment on above: Performed By: #### L 509.8000, BTS, L3890.6300, L500.4050, L3890.6100, L100.0100, L501.9985, L900.0098, L505.5000, L509.4005, L3890.6005 ####[facility] [address] [place], [address] Hematocrit (Bld) [Volume fraction] 35.2 % Low 37-47 [facility] Comment on above: Performed By: #### L 509.8000, BTS, L3890.6300, L500.4050, L3890.6100, L100.0100, L501.9985, L900.0098, L505.5000, L509.4005, L3890.6005 ####[facility] [id number] [place], [address] Hemoglobin (Bld) [Mass/Vol] 11.4 g/dL Low 12.0-15.0 [facility] Comment on above: Performed By: #### L 509.8000, BTS, L3890.6300, L500.4050, L3890.6100, L100.0100, L501.9985, L900.0098, L505.5000, L509.4005, L3890.6005 ####[facility] [address] [place], [address] IG% 0.400 Normal 0.0-0.9 [facility] Comment on above: Result Comment: IG% - Immature Granulocytes (promyelocytes, myelocytes and metamyelocytes) > 1% indicates that a LEFT SHIFT is Present. Performed By: #### L 509.8000, BTS, L3890.6300, L500.4050, L3890.6100, L100.0100, L501.9985, L900.0098, L505.5000, L509.4005, L3890.6005 ####[facility] [address] [place], [address] Lymphocytes/100 WBC (Bld) 21.8 % Normal 19-41 [facility] Comment on above: Performed By: #### L 509.8000, BTS, L3890.6300, L500.4050, L3890.6100, L100.0100, L501.9985, L900.0098, L505.5000, L509.4005, L3890.6005 ####[facility] [address] [place], [address] MCH (RBC) [Entitic mass] 28.6 pg Normal 27.0-32.0 [facility] Comment on above: Performed By: #### L 509.8000, BTS, L3890.6300, L500.4050, L3890.6100, L100.0100, L501.9985, L900.0098, L505.5000, L509.4005, L3890.6005 ####[facility] [address] [place], [place], [phone] MCHC (RBC) [Mass/Vol] 32.4 g/dL Normal 32-36 [facility] Comment on above: Performed By: #### L 509.8000, BTS, L3890.6300, L500.4050, L3890.6100, L100.0100, L501.9985, L900.0098, L505.5000, L509.4005, L3890.6005 ####[facility] [address] [place], [place], [phone] MCV (RBC) [Entitic vol] 88.4 fL Normal 81-99 [facility] Comment on above: Performed By: #### L 509.8000, BTS, L3890.6300, L500.4050, L3890.6100, L100.0100, L501.9985, L900.0098, L505.5000, L509.4005, L3890.6005 ####[facility] [address] [place], [address]( Monocytes/100 WBC (Bld) 5.0 % Normal 0-10 [facility] Comment on above: Performed By: #### L 509.8000, BTS, L3890.6300, L500.4050, L3890.6100, L100.0100, L501.9985, L900.0098, L505.5000, L509.4005, L3890.6005 ####[facility] [address] [place], [phone] Neutrophils/100 WBC (Bld) 71.6 % High 47-70 [facility] Comment on above: Performed By: #### L 509.8000, BTS, L3890.6300, L500.4050, L3890.6100, L100.0100, L501.9985, L900.0098, L505.5000, L509.4005, L3890.6005 ####[facility] [address] [facility] [place], [address] Nucleated RBC (Bld) [#/Vol] 0 10*3/uL Normal 0-5 [facility] Comment on above: Performed By: #### L 509.8000, BTS, L3890.6300, L500.4050, L3890.6100, L100.0100, L501.9985, L900.0098, L505.5000, L509.4005, L3890.6005 ####[facility] [address] [place], [address] Platelet mean volume (Bld) [Entitic vol] 10.2 fL Normal 6.2-12.0 [facility] Comment on above: Performed By: #### L 509.8000, BTS, L3890.6300, L500.4050, L3890.6100, L100.0100, L501.9985, L900.0098, L505.5000, L509.4005, L3890.6005 ####[facility] [address] [place], [address] Platelets (Bld) [#/Vol] 329 10*3/uL Normal 150-450 [facility] Comment on above: Performed By: #### L 509.8000, BTS, L3890.6300, L500.4050, L3890.6100, L100.0100, L501.9985, L900.0098, L505.5000, L509.4005, L3890.6005 ####[facility] [address] [place], [address] RBC (Bld) [#/Vol] 3.98 10*6/uL Low 4.2-5.4 [facility] Comment on above: Performed By: #### L 509.8000, BTS, L3890.6300, L500.4050, L3890.6100, L100.0100, L501.9985, L900.0098, L505.5000, L509.4005, L3890.6005 ####[facility] [address] [place], [address] RDW SD 52.0 fl High 35.1-43.9 [facility] Comment on above: Performed By: #### L 509.8000, BTS, L3890.6300, L500.4050, L3890.6100, L100.0100, L501.9985, L900.0098, L505.5000, L509.4005, L3890.6005 ####[facility] [address] [place], [address] WBC (Bld) [#/Vol] 9.0 10*3/uL Normal 4.4-11.0 [facility] Comment on above: Performed By: #### L 509.8000, BTS, L3890.6300, L500.4050, L3890.6100, L100.0100, L501.9985, L900.0098, L505.5000, L509.4005, L3890.6005 ####[facility] [address] [place], [place], [phone] Carbon dioxide measurementOr dered By: Marietta Ghosh on 07-21-2024 CO2 [Moles/Vol] 24.0 mmol/L 21.0-32.0 [facility] Chloride measurementOrdered By: Marietta Ghosh on 07-21-2024 Chloride [Moles/Vol] 106 mmol/L 98-107 [facility] Comprehensive Metabolic Prof ilon 07-21-2024 Albumin [Mass/Vol] 2.8 g/dL Low 3.2-5.0 [facility] Comment on above: Order Comment: NIPT with Gender Performed By: #### L 509.8000, BTS, L3890.6300, L500.4050, L3890.6100, L100.0100, L501.9985, L900.0098, L505.5000, L509.4005, L3890.6005 ####[facility] [address] [place], [address] Albumin/Globulin [Mass ratio] 0.7 {ratio} Low 0.9-2.4 [facility] Comment on above: Order Comment: NIPT with Gender Performed By: #### L 509.8000, BTS, L3890.6300, L500.4050, L3890.6100, L100.0100, L501.9985, L900.0098, L505.5000, L509.4005, L3890.6005 ####[facility] [address] [place], [address] ALK P 82 U/L Normal 45-117 [facility] Comment on above: Order Comment: NIPT with Gender Performed By: #### L 509.8000, BTS, L3890.6300, L500.4050, L3890.6100, L100.0100, L501.9985, L900.0098, L505.5000, L509.4005, L3890.6005 ####[facility] [address] [place], [address] ALT [Catalytic activity/Vol] 11 U/L Low 13-56 [facility] Comment on above: Order Comment: NIPT with Gender Performed By: #### L 509.8000, BTS, L3890.6300, L500.4050, L3890.6100, L100.0100, L501.9985, L900.0098, L505.5000, L509.4005, L3890.6005 ####[facility] [address] [place], [address] AST [Catalytic activity/Vol] 8 U/L Low 15-37 [facility] Comment on above: Order Comment: NIPT with Gender Performed By: #### L 509.8000, BTS, L3890.6300, L500.4050, L3890.6100, L100.0100, L501.9985, L900.0098, L505.5000, L509.4005, L3890.6005 ####[facility] [address] [place], [address] Bilirubin [Mass/Vol] 0.10 mg/dL Low 0.20-1.00 [facility] Comment on above: Order Comment: NIPT with Gender Result Comment: For patients on eltrombopag therapy, use of Dimension Hunter TBIL is not recommended. Performed By: #### L 509.8000, BTS, L3890.6300, L500.4050, L3890.6100, L100.0100, L501.9985, L900.0098, L505.5000, L509.4005, L3890.6005 ####[facility] [address] [place], [address] BUN/CRE 15.8 RATIO Normal 10-20 [facility] Comment on above: Order Comment: NIPT with Gender Performed By: #### L 509.8000, BTS, L3890.6300, L500.4050, L3890.6100, L100.0100, L501.9985, L900.0098, L505.5000, L509.4005, L3890.6005 ####[facility] [address] [place], [address] CA,Total 9.0 mg/dL Normal 8.5-10.1 [facility] Comment on above: Order Comment: NIPT with Gender Performed By: #### L 509.8000, BTS, L3890.6300, L500.4050, L3890.6100, L100.0100, L501.9985, L900.0098, L505.5000, L509.4005, L3890.6005 ####[facility] [address] [place], [place], [phone] Chloride [Moles/Vol] 106 mmol/L Normal 98-107 [facility] Comment on above: Order Comment: NIPT with Gender Performed By: #### L 509.8000, BTS, L3890.6300, L500.4050, L3890.6100, L100.0100, L501.9985, L900.0098, L505.5000, L509.4005, L3890.6005 ####[facility] [address] [place], [place], [phone] CO2 [Moles/Vol] 24.0 mmol/L Normal 21.0-32.0 [facility] Comment on above: Order Comment: NIPT with Gender Performed By: #### L 509.8000, BTS, L3890.6300, L500.4050, L3890.6100, L100.0100, L501.9985, L900.0098, L505.5000, L509.4005, L3890.6005 ####[facility] [address] [place], [place], [phone] Creatinine [Mass/Vol] 0.50 mg/dL Low 0.55-1.02 [facility] Comment on above: Order Comment: NIPT with Gender Result Comment: The validity of the calculated GFR GFRAA in patients over 70 years has not been determined. Clinical correlation is essential. Performed By: #### L 509.8000, BTS, L3890.6300, L500.4050, L3890.6100, L100.0100, L501.9985, L900.0098, L505.5000, L509.4005, L3890.6005 ####[facility] [address] [place], [place], [phone] EST GFR - AA 193 mL/min Normal >60 [facility] Comment on above: Order Comment: NIPT with Gender Result Comment: Afri can Wallisian GFR Calc Performed By: #### L 509.8000, BTS, L3890.6300, L500.4050, L3890.6100, L100.0100, L501.9985, L900.0098, L505.5000, L509.4005, L3890.6005 ####[facility] [address] [place], [place], [phone] GAP 5 Normal 5-15 [facility] Comment on above: Order Comment: NIPT with Gender Performed By: #### L 509.8000, BTS, L3890.6300, L500.4050, L3890.6100, L100.0100, L501.9985, L900.0098, L505.5000, L509.4005, L3890.6005 ####[facility] [address] [place], [place], [phone] GFR/1.73 sq M.predicted among non-blacks MDRD (S/P/Bld) [Vol rate/Area] 160 mL/min/{1.73_m2} Normal >60 [facility] Comment on above: Order Comment: NIPT with Gender Result Comment: Non- GFR Calc Performed By: #### L 509.8000, BTS, L3890.6300, L500.4050, L3890.6100, L100.0100, L501.9985, L900.0098, L505.5000, L509.4005, L3890.6005 ####[facility] [address] [place], [address] Globulin (S) [Mass/Vol] 3.9 g/dL Normal 2.2-4.2 [facility] Comment on above: Order Comment: NIPT with Gender Performed By: #### L 509.8000, BTS, L3890.6300, L500.4050, L3890.6100, L100.0100, L501.9985, L900.0098, L505.5000, L509.4005, L3890.6005 ####[facility] [address] [place], [address] Glucose [Mass/Vol] 138 mg/dL High 74-106 [facility] Comment on above: Order Comment: NIPT with Gender Result Comment: Fast ing Glucose result greater than or equal to 126 mg/dL suggests DIABETES MELLITUS per A.D.A. criteria. Performed By: #### L 509.8000, BTS, L3890.6300, L500.4050, L3890.6100, L100.0100, L501.9985, L900.0098, L505.5000, L509.4005, L3890.6005 ####[facility] [address] [place], [address] Potassium [Moles/Vol] 3.6 mmol/L Normal 3.5-5.1 [facility] Comment on above: Order Comment: NIPT with Gender Performed By: #### L 509.8000, BTS, L3890.6300, L500.4050, L3890.6100, L100.0100, L501.9985, L900.0098, L505.5000, L509.4005, L3890.6005 ####[facility] [address] [place], [address] Sodium [Moles/Vol] 135 mmol/L Low 136-145 [facility] Comment on above: Order Comment: NIPT with Gender Performed By: #### L 509.8000, BTS, L3890.6300, L500.4050, L3890.6100, L100.0100, L501.9985, L900.0098, L505.5000, L509.4005, L3890.6005 ####[facility] [address] [place], [place], [phone] T PROT 6.7 g/dL Normal 6.4-8.2 [facility] Comment on above: Order Comment: NIPT with Gender Performed By: #### L 509.8000, BTS, L3890.6300, L500.4050, L3890.6100, L100.0100, L501.9985, L900.0098, L505.5000, L509.4005, L3890.6005 ####[facility] [address] [place], [place], [phone] Urea nitrogen [Mass/Vol] 8 mg/dL Normal 7-18 [facility] Comment on above: Order Comment: NIPT with Gender Performed By: #### L 509.8000, BTS, L3890.6300, L500.4050, L3890.6100, L100.0100, L501.9985, L900.0098, L505.5000, L509.4005, L3890.6005 ####[facility] [address] [place], [place], [phone] Eosinophil percentageOrdered By: Marietta Ghosh on 07-21-2024 Eosinophils/100 WBC (Bld) 0.9 % 0-5 [facility] Erythrocyte distribution wid th ratioOrdered By: Marietta Ghosh on 07-21-2024 Erythrocyte distribution width (RBC) [Ratio] 15.9 % High 11.6-14.6 [facility] Erythrocyte distribution wid th standard deviationOrdered By: Marietta Ghosh on 07-21-2024 Erythrocyte distribution width (RBC) [Ratio] 52.0 fl High 35.1-43.9 [facility] Gestational diabetes screen 1-hour screen with 50g oral glucose loadOrdered By: Marietta Ghosh on 07-21-2024 Glucose 1 Hr post 50 g glucose PO [Mass/Vol] 130 mg/dL 70-140 [facility] Glomerular filtration rate ( GFR) estimationOrdered By: Marietta Ghosh on 07-21-2024 GFR/1.73 sq M.predicted among non-blacks MDRD (S/P/Bld) [Vol rate/Area] 160 mL/min/{1.73_m2} >60 [facility] Comment on above: Non- GFR Calc Glucose Challenge Gest 1H 50 qi 07-21-2024 GLU GEST 50g 1H 130 mg/dL Normal 70-140 [facility] Comment on above: Performed By: #### L 501.0250, L501.0900 ####[facility] [address] [place], [address] Glucose measurementOrdered B y: Marietta Ghosh on 07-21-2024 Glucose [Mass/Vol] 138 mg/dL High 74-106 [facility] Comment on above: Fasting Glucose resu lt greater than or equal to 126 mg/dL suggests DIABETES MELLITUS per A.D.A. criteria. HIV - WCHon 07-21-2024 HIV Non-Reactive Normal Nonreactive [facility] Comment on above: Order Comment: Reaso n for Exam: Performed By: #### M 100.3400 #### [facility] [address] [place], [address] HIV 1 and HIV-2 antibody ass ay with HIV-1 p24 antigen detectionOrdered By: Marietta Ghosh on 07-21-2024 HIV 1+2 Ab+HIV1 p24 Ag IA Ql Non-Reactive Nonreactive [facility] Hematocrit Auto (Bld) [Volum e fraction]Ordered By: Marietta Ghosh on 07-21-2024 Hematocrit (Bld) [Volume fraction] 35.2 % Low 37-47 [facility] Hemoglobin A1con 07-21-2024 HbA1c (Bld) [Mass fraction] 5.5 % Normal 3.8-5.6 [facility] Comment on above: Result Comment: Norm al < 5.7 % Prediabetic 5.7 - 6.4 % Diabetic >or= 6.5 % Please note range changes. Performed By: #### L 509.8000, BTS, L3890.6300, L500.4050, L3890.6100, L100.0100, L501.9985, L900.0098, L505.5000, L509.4005, L3890.6005 ####[facility] [address] [place], [place], [phone] Hemoglobin A1c percentageOrd ered By: Marietta Ghosh on 07-21-2024 HbA1c (Bld) [Mass fraction] 5.5 % 3.8-5.6 [facility] Comment on above: Normal < 5.7 % Predi abetic 5.7 - 6.4 % Diabetic >or= 6.5 % Please note range changes. Hemoglobin measurementOrdere d By: Marietta Ghosh on 07-21-2024 Hemoglobin (Bld) [Mass/Vol] 11.4 g/dL Low 12.0-15.0 [facility] Hepatitis B Surface Antigeno n 07-21-2024 HEP B Surf Ag Non-Reactive Normal Nonreactive [facility] Comment on above: Order Comment: Reaso n for Exam: Performed By: #### M 100.3400 #### [facility] [address] [facility] [place], [address] Hepatitis C Antibodyon 07-21 Hepatitis C AB Non-Reactive Normal Nonreactive [facility] Comment on above: Order Comment: Reaso n for Exam: Result Comment: Non Reactive: < 0.8 Equivocal: >/= 0.8 to < 1.0 Reactive: >/= 1.0 The CDC requires that a reactive/equivocal HCV antibody result be sent out for confirmation. HCV Quant by PCR testing. Performed By: #### M 100.3400 #### [facility] [address] [place], [place], [phone] Immature granulocytes/100 WB C Auto (Bld)Ordered By: Marietta Ghosh on 07-21-2024 Immature granulocytes/100 WBC (Bld) 0.400 % 0.0-0.9 [facility] Comment on above: IG% - Immature Granu locytes (promyelocytes, myelocytes and metamyelocytes) > 1% indicates that a LEFT SHIFT is Present. L509.8000on 07-21-2024 Syphilis Abs Non-Reactive Normal [facility] Comment on above: Order Comment: Reaso n for Exam: Performed By: #### L 509.8000, BTS, L3890.6300, L500.4050, L3890.6100, L100.0100, L501.9985, L900.0098, L505.5000, L509.4005, L3890.6005 ####[facility] [address] [place], [address] Laboratory - Chemistry and C hemistry - challengeOrdered By: Marietta Ghosh on 07-21-2024 AST [Catalytic activity/Vol] 8 U/L Low 15-37 [facility] MCV (mean corpuscular volume ) determinationOrdered By: Marietta Ghosh on 07-21-2024 MCV (RBC) [Entitic vol] 88.4 fL 81-99 [facility] Mean corpuscular hemoglobin (MCH) determinationOrdered By: Marietta Ghosh on 07-21-2024 MCH (RBC) [Entitic mass] 28.6 pg 27.0-32.0 [facility] Mean corpuscular hemoglobin concentration (MCHC) determinationOrdered By: Marietta Ghosh on 07-21-2024 MCHC (RBC) [Mass/Vol] 32.4 g/dL 32-36 [facility] Mean platelet volume determi nationOrdered By: Marietta Ghosh on 07-21-2024 Platelet mean volume (Bld) [Entitic vol] 10.2 fL 6.2-12.0 [facility] Monocyte percentageOrdered B y: Marietta Ghosh on 07-21-2024 Monocytes/100 WBC (Bld) 5.0 % 0-10 [facility] NATERAon 07-21-2024 NATURA SEE SCANNED REPORT Normal [facility] Comment on above: Order Comment: Comme nts: NIPT with Gender Performed By: #### L 509.8000, BTS, L3890.6300, L500.4050, L3890.6100, L100.0100, L501.9985, L900.0098, L505.5000, L509.4005, L3890.6005 ####[facility] [address] [place], [address] Neutrophil percentageOrdered By: Marietta Ghosh on 07-21-2024 Neutrophils/100 WBC (Bld) 71.6 % High 47-70 [facility] No Panel InformationOrdered By: Marietta Ghosh on 07-21-2024 Urine Drug Screen Comment [facility] Comment on above: CONFIRMATORY TESTING FOR ALL POSITIVE URINE DRUG SCREENRESULTS WILL ONLY BE SENT OUT UPON PHYSICIAN ORDER. VISTA Urine Drug Screen methods provide only preliminaryanalytical test results. A more specific alternate chemicalmethod must be used in order to obtain a confirmedanalytical result. Gas chromatography/mass spectrometery(GC/MS) is the preferred confirmatory method. Clinicalconsideration and professional judgement should be appliedto any drug of abuse test result, particularly whenpreliminary positive results are used. URINE TCA TESTING MUST BE ORDERED SEPARATELY. USE TESTMNEMONIC: [facility] Nucleated red blood cell per centageOrdered By: Marietta Ghosh on 07-21-2024 Nucleated RBC/100 WBC (Bld) [Ratio] 0 % 0-5 [facility] Platelet countOrdered By: Jovan Ghosh on 07-21-2024 Platelets (Bld) [#/Vol] 329 10*3/uL 150-450 [facility] Potassium measurementOrdered By: Marietta Ghosh on 07-21-2024 Potassium [Moles/Vol] 3.6 mmol/L 3.5-5.1 [facility] Protein+Creatinine Ratio,Uri neon 07-21-2024 PROT:CRE RATIO 98 mg/g CRE Normal 0-200 [facility] Comment on above: Performed By: #### L 501.0250, L501.0900 ####[facility] [address] [place], [address] UR CREAT 131.00 mg/dL Normal NO RANGE EST. [facility] Comment on above: Performed By: #### L 501.0250, L501.0900 ####[facility] [address] [place], [place], [phone] Quantitative urine opiates m easurementOrdered By: Marietta Ghosh on 07-21-2024 Opiates Ql (U) Negative < 300 ng/mL [facility] RBC Auto (Bld) [#/Vol]Ordere d By: Marietta Ghosh on 07-21-2024 RBC (Bld) [#/Vol] 3.98 10*6/uL Low 4.2-5.4 [facility] urine protein measure mentOrdered By: Marietta Ghosh on 07-21-2024 Protein (U) [Mass/Vol] 12.9 mg/dL High <11.9 [facility] Comment on above: Performed By: #### L 501.0250, L501.0900 ####[facility] [address] [place], [place], [phone] Rubella IgGon 07-21-2024 Rubella IgG Reactive Normal Nonreactive [facility] Comment on above: Order Comment: Reaso n for Exam: Result Comment: Anti body Results Interpretation of Immune Status Non Reactive Presumed Non-Immune Equivocal Equivocal Reactive Presumed Immune Performed By: #### L 509.8000, BTS, L3890.6300, L500.4050, L3890.6100, L100.0100, L501.9985, L900.0098, L505.5000, L509.4005, L3890.6005 ####[facility] [address] [place], [address] Serum Treponema species anti body detectionOrdered By: Marietta Ghosh on 07-21-2024 Treponema sp Ab Ql (S) Non-Reactive [facility] Serum anion gap measurementO rdered By: Marietta Ghosh on 07-21-2024 Anion gap [Moles/Vol] 5 mmol/L 5-15 [facility] Serum globulin measurementOr dered By: Marietta Ghosh on 07-21-2024 Globulin (S) [Mass/Vol] 3.9 g/dL 2.2-4.2 [facility] Serum or plasma alanine purdy otransferase (ALT) measurementOrdered By: Marietta Ghosh on 07-21-2024 ALT [Catalytic activity/Vol] 11 U/L Low 13-56 [facility] Serum or plasma albumin jose cruz urement (mass/volume)Ordered By: Marietta Ghosh on 07-21-2024 Albumin [Mass/Vol] 2.8 g/dL Low 3.2-5.0 [facility] Serum or plasma alkaline silvio sphatase measurementOrdered By: Marietta Ghosh on 07-21-2024 ALP [Catalytic activity/Vol] 82 U/L 45-117 [facility] Serum or plasma calcium jose cruz urement (mass/volume)Ordered By: Marietta Ghosh on 07-21-2024 Calcium [Mass/Vol] 9.0 mg/dL 8.5-10.1 [facility] Serum or plasma creatinine m easurement (mass/volume)Ordered By: Marietta Ghosh on 07-21-2024 Creatinine [Mass/Vol] 0.50 mg/dL Low 0.55-1.02 [facility] Comment on above: The validity of the calculated GFR & GFRAA in patients over 70 years has not been determined. Clinical correlation is essential. Serum or plasma urea nitroge n measurement (mass/volume)Ordered By: Marietta Ghosh on 07-21-2024 Urea nitrogen [Mass/Vol] 8 mg/dL 7-18 [facility] Sodium levelOrdered By: Grace Ghosh on 07-21-2024 Sodium [Moles/Vol] 135 mmol/L Low 136-145 [facility] Total proteinOrdered By: Arthur Ghosh on 07-21-2024 Protein [Mass/Vol] 6.7 g/dL 6.4-8.2 [facility] Type AND Screenon 07-21-2024 Ab SCREEN GEL Negative Normal [facility] Comment on above: Order Comment: PN Performed By: #### L 509.8000, BTS, L3890.6300, L500.4050, L3890.6100, L100.0100, L501.9985, L900.0098, L505.5000, L509.4005, L3890.6005 ####[facility] [address] [place], [place], [phone] Urine Drug Screen (VISTA)on 07-21-2024 AMPHETAMINES Negative Normal <1000 ng/mL [facility] Comment on above: Order Comment: NIPT with GenderUNK Performed By: #### L 509.8000, BTS, L3890.6300, L500.4050, L3890.6100, L100.0100, L501.9985, L900.0098, L505.5000, L509.4005, L3890.6005 ####[facility] [address] [place], [place], [phone] BARBITIURATES Negative Normal < 200 ng/mL [facility] Comment on above: Order Comment: NIPT with GenderUNK Performed By: #### L 509.8000, BTS, L3890.6300, L500.4050, L3890.6100, L100.0100, L501.9985, L900.0098, L505.5000, L509.4005, L3890.6005 ####[facility] [address] [place], [place], [phone] BENZODIAZIPINE Negative Normal < 200 ng/mL [facility] Comment on above: Order Comment: NIPT with GenderUNK Performed By: #### L 509.8000, BTS, L3890.6300, L500.4050, L3890.6100, L100.0100, L501.9985, L900.0098, L505.5000, L509.4005, L3890.6005 ####[facility] [address] [place], [place], [phone] COCAINE Negative Normal < 300 ng/mL [facility] Comment on above: Order Comment: NIPT with GenderUNK Performed By: #### L 509.8000, BTS, L3890.6300, L500.4050, L3890.6100, L100.0100, L501.9985, L900.0098, L505.5000, L509.4005, L3890.6005 ####[facility] [address] [place], [place], [phone] ECSTACY Negative Normal < 500 ng/mL [facility] Comment on above: Order Comment: NIPT with GenderUNK Performed By: #### L 509.8000, BTS, L3890.6300, L500.4050, L3890.6100, L100.0100, L501.9985, L900.0098, L505.5000, L509.4005, L3890.6005 ####[facility] [address] [place], [address] METHADONE Negative Normal < 300 ng/mL [facility] Comment on above: Order Comment: NIPT with GenderUNK Performed By: #### L 509.8000, BTS, L3890.6300, L500.4050, L3890.6100, L100.0100, L501.9985, L900.0098, L505.5000, L509.4005, L3890.6005 ####[facility] [address] [place], [address] OPIATES Negative Normal < 300 ng/mL [facility] Comment on above: Order Comment: NIPT with GenderUNK Performed By: #### L 509.8000, BTS, L3890.6300, L500.4050, L3890.6100, L100.0100, L501.9985, L900.0098, L505.5000, L509.4005, L3890.6005 ####[facility] [address] [place], [address] PCP Negative Normal < 25 ng/mL [facility] Comment on above: Order Comment: NIPT with GenderUNK Performed By: #### L 509.8000, BTS, L3890.6300, L500.4050, L3890.6100, L100.0100, L501.9985, L900.0098, L505.5000, L509.4005, L3890.6005 ####[facility] [address] [place], [place], [id number] THC Positive Abnormal < 50 ng/mL [facility] Comment on above: Order Comment: NIPT with GenderUNK Performed By: #### L 509.8000, BTS, L3890.6300, L500.4050, L3890.6100, L100.0100, L501.9985, L900.0098, L505.5000, L509.4005, L3890.6005 ####[facility] [id number] [place], [place], [id number] [facility]DS PH 5 Normal [facility] Comment on above: Order Comment: NIPT with GenderUNK Performed By: #### L 509.8000, BTS, L3890.6300, L500.4050, L3890.6100, L100.0100, L501.9985, L900.0098, L505.5000, L509.4005, L3890.6005 ####[facility] [id number] [place], [place], [id number] Urine amphetamine measuremen tOrdered By: Marietta Ghosh on 07-21-2024 Amphetamines Ql (U) Negative <1000 ng/mL [facility] [facility] Urine benzodiazepine levelOr dered By: Marietta Ghosh on 07-21-2024 Benzodiazepines Ql (U) Negative < 200 ng/mL [facility] Urine cocaine levelOrdered B y: Marietta Ghosh on 07-21-2024 Cocaine Ql (U) Negative < 300 ng/mL [facility] Urine creatinine measurement (mass/volume)Ordered By: Marietta Ghosh on 07-21-2024 Creatinine (U) [Mass/Vol] 131.00 mg/dL NO RANGE EST. [facility] Urine snpmd-2-lhguvfiybgbohw abinol (THC) measurementOrdered By: Marietta Ghosh on 07-21-2024 Cannabinoids Screen Ql (U) Positive High < 50 ng/mL [facility] Urine phencyclidine (PCP) de tectionOrdered By: Marietta Ghosh on 07-21-2024 Phencyclidine Ql (U) Negative < 25 ng/mL [facility] Urine protein/creatinine mas s ratioOrdered By: Marietta Ghosh on 07-21-2024 Protein/Creatinine (U) [Mass ratio] 98 mg/g CRE 0-200 [facility] White blood cell (WBC) count Ordered By: Marietta Ghosh on 07-21-2024 WBC (Bld) [#/Vol] 9.0 10*3/uL 4.4-11.0 [facility] Chlamydia/GC AMBER aptimaon CHLAMY,NUC ACID Negative Normal Negative [facility] Comment on above: Performed By: #### L 3890.6006, L100.0100, L501.0250, L509.8002 #### [facility] [address] [place], [place], [id number] GC BY NUC ACID Negative Normal Negative [facility] Comment on above: Result Comment: Perf ormed at: =G - [facility] [address] [id number] .Net Programmer: Cely Funk MD, Phone: [phone] Performed By: #### L 3890.6006, L100.0100, L501.0250, L509.8002 #### [facility] [address] [place], [place], [address] Urine Cultureon 07-05-2024 [facility] Mixed Gram Pos Gram Neg Org [place] Count 80,000-100,000 MIXC Mixed contaminants. Submit a new specimen if indicated. Normal [facility] Comment on above: Performed By: #### L 3890.6006, L100.0100, L501.0250, L509.8002 #### [facility] [address] [place], [place], [id number] [employer] Office Visit Reporton 07-03-2024 [employer] Office Visit Report [facility]'[address], [address] [place] [address] OFFICE VISIT Date of Service: 07/03/24 MR#: [id number] Acct: [id number] Name: AZAEL SULTANA Rep #: [id number] : 2000 Provider: RACHAEL Gutiérrez ams Age/Sex: 23/F Location: [facility] Status: Signed Intake Vital Signs 03/11/24 08:55 07/03/24 13:01 Height 5 ft 3 in 5 ft 3 in Weight: 243 lb 247 lb 6 oz BMI 43.0 43.8 BP 136/88 H 127/78 H Blood Pressure Location Lt brachial Position Sitting Pulse 78 Pulse Source Monitor Temp 98.4 F Pulse Oximetry (%) 99 Intake Visit Reasons: NOB LMP 05/02 Chief Complaint: 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 Is patient in pain?: No Allergies adhesive tape Allergy (Mild, Verified 07/03/24 13:04) Rash Medications ???Medication ???Instructions ???Recorded ???Confirmed ???Type multivit-min no.71-iron fum 28 300 cap PO DAILY 01/11/23 06/30/24 History mg-folate no.1 1 mg-dha 300 mg capsule (PNV-Clothier) ondansetron 4 mg disintegrating 4 mg PO Q4H PRN nausea and 06/18/24 06/30/24 Rx tablet vomiting #60 tabs Last Menstrual Period: 05/02/24 Zika: Zika virus screening: Negative : No PFSH PFSH Medical History Seasonal allergies Hx of chlamydia infection Adopted Chlamydia infection affecting Anxiety Surgical History History of dental surgery Family History Mother Diabetes Grandfather Diabetes Social History adopted: Yes (limited family medical history known) household members: spouse, family and children number of children: 2 current occupational status: employed current occupation: [employer] current occupational exposures/hazards: No pets and animals: Yes pets and animals: dog(s) history of recent travel: No sexually active: Yes Smoking Status: Former smoker quit date: 10/30/22 how long ago did patient quit smokin year ago quit status: quit date established alcohol intake: former details: social drinking prior to substance use type: marijuana well-balanced diet: about half the time caffeine: Yes Type: carbonated beverages Number of servings: 1 eating out: 1-3 times/week during the past year weight has: increased > 10 lbs what type of physical activity do you participate in: none matt/adventist: None seatbelt use: always do you feel safe at home: Yes additional social history: Patient works at [employer]- Works at [employer] History 4 Elective abortions Hx Para 2 Spontaneous abortions 1 Hx # Term Pregnancies 2 Ectopic pregnancies Hx # Pregnancies Multiple births # of living children 2 Past Pregnancies Del. Date Name GA/Weeks Outcome Route Bth Weight Infant Gen Labor Lgth Anesthesia Del Locatn Provider FOB 07/20/20 Andre 37 live - full term vacuum 8# 11oz Male [facility] Myke ellison 08/20/23 Radames Elizondo 38 live - full term 7lbs 8oz Male [facility] SM Delivery Date: 07/20/20 Last Updated by: Angy Ayon IOL pre-eclampsia VAVD triple I HPI NOB LMP 05/02 Details: AZAEL SULTANA is a 23 year old who presents for New OB visit. OB Visit ANNA MARIE Calculator Estimated Delivery Date Method Current WG Current Estimate 02/06/25 LMP (Certain) 8w 6d Other Estimates 02/05/25 Ultrasound #1 9w 0d Comments: HIV: Urine Culture: Sequential Screen: NIPT Screen: Estimated Due Date: 02/06/25 Expected Delivery Route/Plan Labor Preferences- CB/BF classes: [] labor support person: [] labor intervention preferences: [] pain management options preferred: [] cut cord/dad catch: [] : [] PP control planned: [] discussed possible routes of delivery and associated risks: [] special requests: [] Specific Issue/Plans Covid status: [] Flu vaccine: [] Tdap vaccine: [] Rhogam: [] LARC form signed: [] Problem list reviewed and updated with the most current plan of care details and appropriate orders placed. Relevant counseling for the gestational age provided. Continue routine care and follow up unless otherwise noted in visit notes/problem list details Initial Weight: 247 lb Date -???-???-???-???-???-?? ?-???-???-???-???-???-? ??- EGA Weight BP Urine Prot -???-???-???-???-???-?? ?-???-???-???-???-???-? ??- Glucose FHR FuHt Pres Dilation -???-???-???-???-???-?? ?-???-???-???-???-???-? ??- Effaced St Visit Note 07/03/24 -???-???-???-???-???-?? ?-???-???-???-???-???-? ??- 8w 6d 247 lb 6 oz (+6 oz) 127/78 -???-???-???-???-???-?? ? (more content not included)... Normal [facility] QUANTIFERON TB INCUBATED [CC L]on 06-16-2024 Mitogen minus Nil >10.00 Normal >=0.50 [facility] Comment on above: Performed By: #### 2 68315 #### [place] [address] TB Gamma Interpretation Infection with M . tuberculosis complex is unlikely. If latent tuberculosis infec Normal [facility] Comment on above: Result Comment: [facility] [address] [place] [address] Ruben Stephenson III, M.D. [id number] Performed By: #### 2 18684 #### [place] [id number] TB NIL 0.00 IU/mL Normal <=8.00 [facility] Comment on above: Performed By: #### 2 61028 #### [place] [id number] TB Result Negative Normal [facility] Comment on above: Performed By: #### 2 12288 #### [facility],[address] [place] [address] TB1 Ag minus Nil 0.00 IU/mL Normal <0.35 [facility] Comment on above: Performed By: #### 2 91423 #### [facility],[address] [place] [address] TB2 Ag minus Nil 0.00 IU/mL Normal <0.35 [facility] Comment on above: Performed By: #### 2 39879 #### [facility],[address] [place] [address] HEP B SURFACE AG [CCL]on Hepatitis B Surf. Ag Negative Normal Negative [facility] Comment on above: Result Comment: [place] [address] [place] [address] Ruben Stephenson III, M.D. [id number] Performed By: #### 2 19231 #### [place] [address] CBC + DIFFon 06-13-2024 Baso # 0.03 x10EE3/UL Normal 0.00 - 0.10 [facility] Comment on above: Performed By: #### 2 60800 #### [facility],[address] [place] [address] Basophils/100 WBC (Bld) 0.3 % Normal 0.0 - 2.0 [facility] Comment on above: Performed By: #### 2 75890 #### [facility],[address] [place] [address] CBC + DIFF Normal [facility] Comment on above: Result Comment: CBC- COMPLETE BLOOD COUNT Performed By: #### 2 48169 #### [facility],[address] [place] [address] EO # 0.11 x10EE3/UL Normal 0.00 - 0.50 [facility] Comment on above: Performed By: #### 2 70739 #### [facility],[address] [place] [address] Eosinophils/100 WBC (Bld) 1.1 % Normal 0.0 - 7.0 [facility] Comment on above: Performed By: #### 2 44327 #### [facility],[address] [place] [address] Erythrocyte distribution width (RBC) [Ratio] 15.5 % Normal 12.0 - 15.6 [facility] Comment on above: Performed By: #### 2 65031 #### [facility],[address] [place] [address] Hematocrit (Bld) [Volume fraction] 42.1 % Normal 34.0 - 46.0 [facility] Comment on above: Performed By: #### 2 08146 #### [facility],[address] [place], [place] [id number] Hemoglobin (Bld) [Mass/Vol] 13.9 g/dL Normal 12.0 - 16.0 [facility] Comment on above: Performed By: #### 2 29089 #### [facility],[address] [place] [address] Lymph # 2.29 x10EE3/UL Normal 0.80 - 2.80 [facility] Comment on above: Performed By: #### 2 72048 #### [facility],[address] [place] [address] Lymphocytes/100 WBC (Bld) 24.4 % Normal 20.0 - 45.0 [facility] Comment on above: Performed By: #### 2 96548 #### [facility],[address] [place] [address] MANUAL DIFF N/A Normal [facility] Comment on above: Performed By: #### 2 63489 #### [facility],[address] [place] [address] MCH (RBC) [Entitic mass] 28 pg Normal 27 - 33 [facility] Comment on above: Performed By: #### 2 81162 #### [facility],[address] [place] [address] MCHC 33 X10 3 Normal 32 - 36 [facility] Comment on above: Performed By: #### 2 24404 #### [facility],[address] [place] [address] MCV (RBC) [Entitic vol] 85 fL Normal 80 - 99 [facility] Comment on above: Performed By: #### 2 70231 #### [facility],[address] [place] [address] Pratt # 0.48 x10EE3/UL Normal 0.20 - 1.00 [facility] Comment on above: Performed By: #### 2 12121 #### [facility],[address] [place] [address] MONOS % 5.1 % Normal 0.0 - 10.0 [facility] Comment on above: Performed By: #### 2 78576 #### [facility],[address] [place] [address] Morphology Armand (Bld) [Interp] N/A Normal [facility] Comment on above: Performed By: #### 2 60243 #### [place] [address] Neut # 6.47 x10EE3/UL Normal 1.50 - 7.10 [facility] Comment on above: Performed By: #### 2 80564 #### [place] [address] Neutrophils/100 WBC (Bld) 69.0 % Normal 46.0 - 76.0 [facility] Comment on above: Performed By: #### 2 78950 #### [place] [id number] PLATELET 467 x10EE3/UL High 150 - 450 [facility] Comment on above: Performed By: #### 2 46126 #### [facility],[address] [place] [address] Platelet mean volume (Bld) [Entitic vol] 8.5 fL Normal 6.6 - 10.5 [facility] Comment on above: Result Comment: AUTO MATED DIFFERENTIAL Performed By: #### 2 96236 #### [facility],[address] [place] [address]1800 RBC 4.93 x 10EE6/UL Normal 4.10 - 5.30 [facility] Comment on above: Performed By: #### 2 85099 #### [facility],[address] [place] [address] WBC 9.4 x 10EE3/UL Normal 4.5 - 10.8 [facility] Comment on above: Performed By: #### 2 29033 #### [facility],[address] [place], [place] [id number] CMP with eGFRon 06-13-2024 AGE 23 years Normal [facility] Comment on above: Performed By: #### 2 70400 #### [facility],[address] [place] [address] 13916 Albumin [Mass/Vol] 3.8 g/dL Normal 3.4 - 5.0 [facility] Comment on above: Performed By: #### 2 73071 #### [facility],[address] [place] [address]644 Albumin/Globulin [Mass ratio] 1.1 {ratio} Normal 0.9 - 1.6 [facility] Comment on above: Performed By: #### 2 64707 #### [facility],[address] [place] [address] 33986 ALK PHOS 133 U/L High 46 - 116 [facility] Comment on above: Performed By: #### 2 65985 #### [facility],[address] [place] [address] 49695 ALT [Catalytic activity/Vol] 7 U/L Low 16 - 63 [facility] Comment on above: Performed By: #### 2 49351 #### [facility],[address] [place] [address]1004 Anion gap [Moles/Vol] 9 mmol/L Low 10 - 20 [facility] Comment on above: Performed By: #### 2 52758 #### [facility],[address] [place] [address] 95808 AST [Catalytic activity/Vol] 14 U/L Normal 13 - 39 [facility] Comment on above: Performed By: #### 2 33104 #### [facility],[address] [place], [place] [id number] B/C RATIO 15 ratio Normal 0 - 30 [facility] Comment on above: Performed By: #### 2 07534 #### [facility],[address] [place] [address]41 Bilirubin [Mass/Vol] 0.4 mg/dL Normal 0.2 - 1.0 [facility] Comment on above: Performed By: #### 2 55700 #### [facility],[address] [place] [address] 68571 Calcium [Mass/Vol] 9.6 mg/dL Normal 8.5 - 10.1 [facility] Comment on above: Performed By: #### 2 86944 #### [facility],[address] [place] [address]3262 Chloride [Moles/Vol] 99 mmol/L Normal 98 - 107 [facility] Comment on above: Performed By: #### 2 65285 #### [facility],[address] [place] [address] 21680 CMP with eGFR Normal [facility] Comment on above: Result Comment: COMP REHENSIVE METABOLIC PANEL Performed By: #### 2 43882 #### [facility],[address] [place] [address]0316 CO2 [Moles/Vol] 28.4 mmol/L Normal 21.0 - 32.0 [facility] Comment on above: Performed By: #### 2 93306 #### [facility],[address] [place] [address]151 Creatinine [Mass/Vol] 0.73 mg/dL Normal 0.55 - 1.02 [facility] Comment on above: Performed By: #### 2 25136 #### [facility],[address] [place] [address]199 GFR/1.73 sq M.predicted among non-blacks MDRD (S/P/Bld) [Vol rate/Area] mL/min/{1.73_m2} Normal 60 - 999 [facility] Comment on above: Performed By: #### 2 87291 #### [facility],[address] [place] [address] Result Comment: ACCO RDING TO THE NATIONAL KIDNEY DISEASE EDUCATION PROGRAM(NKDE), A NORMAL eGFR IS A VALUE GREATER THAN OR EQUAL TO 60 ML/MIN/1.73 SQ METERS. CHRONIC KIDNEY DISEASE: <60mL/MIN/1.73 SQ METERS KIDNEY FAILURE: <15mL/MIN/1.73 SQ METERS THIS TEST SHOULD ONLY BE USED FOR PATIENTS 18 YEARS OF AGE AND OLDER. Globulin (S) [Mass/Vol] 3.6 g/dL Normal 1.5 - 3.8 [facility] Comment on above: Performed By: #### 2 73623 #### [facility],[address] [place] [address] 87686 Glucose [Mass/Vol] 128 mg/dL High 74 - 106 [facility] Comment on above: Performed By: #### 2 87192 #### [address] [address] Potassium [Moles/Vol] 3.9 mmol/L Normal 3.5 - 5.1 [facility] Comment on above: Performed By: #### 2 77167 #### [facility],[address] [place] [address]1429 Protein [Mass/Vol] 7.4 g/dL Normal 6.4 - 8.2 [facility] Comment on above: Performed By: #### 2 78341 #### [facility],[address] [place] [address] 35181 Sodium [Moles/Vol] 132 mmol/L Low 136 - 145 [facility] Comment on above: Performed By: #### 2 39201 #### [facility],[address] [place] [address] 47315 Urea nitrogen [Mass/Vol] 11 mg/dL Normal 7 - 18 [facility] Comment on above: Performed By: #### 2 92494 #### [facility],[address] [place] [address] 42801 LIPID PROFILEon 06-13-2024 Cholesterol [Mass/Vol] 189 mg/dL Normal 0 - 240 [facility] Comment on above: Performed By: #### 2 34786 #### [facility],[address] [place] [address] 36816 Cholesterol in HDL [Mass/Vol] 59 mg/dL Normal 40 - 60 [facility] Comment on above: Performed By: #### 2 34364 #### [facility],[address] [place] [address] 19010 Cholesterol in LDL [Mass/Vol] 111 mg/dL Normal 0 - 129 [facility] Comment on above: Performed By: #### 2 40502 #### [facility],[address] [place] [address] Cholesterol.total/[place] sterol in HDL [Mass ratio] 3.2 {ratio} Normal 0.0 - 5.0 [facility] Comment on above: Performed By: #### 2 44803 #### [facility],[address] [place] [address] 17969 Lipid 1996 panel Normal [facility] Comment on above: Result Comment: LIPI D PROFILE Performed By: #### 2 35356 #### [facility],[address] [place] [address] 65543 Triglyceride [Mass/Vol] 95 mg/dL Normal 0 - 150 [facility] Comment on above: Performed By: #### 2 60251 #### [facility],[address] [place] [address] Office Visit Reporton 2023 Office Visit Report [facility] [place] [address] OFFICE VISIT Date of Service: 03/11/24 MR#: [id number] Acct: [id number] Patient: AZAEL SULTANA Rep #: [id number] : 2000 Provider: DEANA Burgess Age/Sex: 23/F Location: [facility] Status: Signed Intake Vital Signs 10/10/23 15:41 03/11/24 08:55 Height 1.6 m 1.6 m Weight: 110.223 kg BMI 43.0 BP 136/88 H Blood Pressure Location Lt brachial Position Sitting Pulse 78 Pulse Source Monitor Temp 98.4 F Temp Source Temporal Pulse Oximetry (%) 99 Intake Visit Reasons: ARMS NUMB/ TINGLY COMES AND GOES/ Chief Complaint: BL shoulder/arm pain/numbness Allergies adhesive tape Allergy (Mild, Verified 03/11/24 08:56) Rash Medications ???Medication ???Instructions ???Recorded ???Confirmed ???Type multivit-min no.71-iron fum 28 300 cap PO DAILY 01/11/23 03/11/24 History mg-folate no.1 1 mg-dha 300 mg capsule (PNV-Clothier) clotrimazole-betamethas one 1 1 applic topical BID 2 weeks #45 09/04/23 03/11/24 Rx %-0.05 % topical cream grams naproxen 500 mg tablet 500 mg PO BID PRN pain #28 tabs 03/11/24 03/11/24 Rx PFSH Medical History Adopted Anxiety Chlamydia infection affecting Complete Gestational diabetes Marijuana use Pre-eclampsia Surgical History History of dental surgery Family History Mother Diabetes Grandfather Diabetes Social History adopted: Yes (limited family medical history known) household members: family number of children: 1 current occupational status: employed current occupation: [employer] current occupational exposures/hazards: No pets and animals: Yes (Not managing litterbox) pets and animals: cat(s) and dog(s) history of recent travel: No sexually active: Yes Smoking Status: Former smoker quit date: 10/30/22 quit status: quit date established alcohol intake: former details: social drinking prior to substance use type: marijuana well-balanced diet: daily or most days caffeine: Yes Type: carbonated beverages Number of servings: 1 eating out: 1-3 times/week during the past year weight has: remained stable what type of physical activity do you participate in: walking frequency: 1-2 times per week duration: 30-45 minutes/day matt/adventist: None seatbelt use: always do you feel safe at home: Yes additional social history: Patient works at [employer]- Works at [employer] Female Reproductive History Menstrual Ab spontaneous: 1 HPI HPI Chief Complaint: BL shoulder/arm pain/numbness Details: AZAEL SULTANA, is a 23 F who presents to the office today for BL shoulder/arm pain/numbness. This began this AM. She worked last night and denies any injury, any pain and swelling. She went to bed at about 3 am without any symptoms. She woke up several hours later with symptoms. She describes aching BL shoulder pain starting in the deltoid area and radiating down the arms, and elbows. R is somewhat worse than Left. There is some numbness and tingling associated with it. She got up and moved around but it did not improve. She has normal ROM and strength tho ROM of the arms elicits pain. She has not tried taking anything for this. She has no pain along the neck or back at this time. ROS Const Constitutional: No body ache, chills, fatigue or fever(s) Musc Musculoskeletal: Positive for joint pain, numbness, stiffness and tingling; No back pain, joint swelling or limited range of motion Neuro Neurology: Positive for numbness and tingling Endo Endocrine: No fatigue Exam Const General: cooperative, healthy appearing, comfortable, no acute distress, well developed and well groomed Nutritional Appearance: overweight Orientation: alert, awake and oriented x3 HENMT Head: normocephalic and atraumatic [facility] Other: Neck and c spine normal ROM and nontender. Shoulders and arm non tender to palpation. Shoulders/arms ROM / strength - intact and = BL. pain elicited with ROM especially overhead reach and abduction. 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 Coding Level of Care Code Off vis,new,level 2 Diagnoses Right shoulder strain S46.911A Left shoulder strain S46.912A Assessment and Plan Assessment and Plan (1) Right shoulder strain: Status: Acute Plan: She appears to have slept in such a way that she strained both shoulders and now has pain, numbness and tingling starting in the deltoid region radiating down both arms. She has no pain or tenderness in the neck. She is nontender and has normal ROM and strength tho the ROM exercises were painful for her. There (more content not included)... Normal [facility] Basophil percentageOrdered B y: Marietta Ghosh on 08-21-2023 Hemoglobin (Bld) [Mass/Vol] 8.8 g/dL 12.0-15.0 [facility] WBC (Bld) [#/Vol] 11.7 10*3/uL 4.4-11.0 [facility] Determination of erythrocyte mean corpuscular volume (MCV)Ordered By: Marietta Ghosh on 08-21-2023 MCV (RBC) [Entitic vol] 87.7 fL 81-99 [facility] Erythrocyte distribution wid th ratioOrdered By: Marietta Ghosh on 08-21-2023 Erythrocyte distribution width (RBC) [Ratio] 14.7 % 11.6-14.6 [facility] Erythrocyte distribution wid th standard deviationOrdered By: Marietta Ghosh on 08-21-2023 Erythrocyte distribution width (RBC) [Entitic vol] 46.5 fL 35.1-43.9 [facility] Hematocrit Auto (Bld) [Volum e fraction]Ordered By: Marietta Ghosh on 08-21-2023 Hematocrit (Bld) [Volume fraction] 27.0 % 37-47 [facility] Laboratory - Hematology and Cell countsOrdered By: Marietta Ghosh on 08-21-2023 MCH (RBC) [Entitic mass] 28.6 pg 27.0-32.0 [facility] MCHC (RBC) [Mass/Vol] 32.6 g/dL 32-36 [facility] Platelet mean volume (Bld) [Entitic vol] 10.7 fL 6.2-12.0 [facility] Platelets (Bld) [#/Vol] 284 10*3/uL 150-450 [facility] RBC Auto (Bld) [#/Vol]Ordere d By: Marietta Ghosh on 08-21-2023 RBC (Bld) [#/Vol] 3.08 10*6/uL 4.2-5.4 [facility] Thin prep Papanicolaou smear with manual screeningOrdered By: Fadumo Zelaya on 08-21-2023 Thin prep Papanicolaou smear with manual screening 80 mg/dL 74-106 [facility] Comment on above: MANAGEMENT OF PATIEN T CARE PER NURSING PROTOCOL Absolute lymphocyte countOrd ered By: Fadumo Zelaya on 08-20-2023 Lymphocytes Auto (Unsp spec) [#/Vol] 2.62 10*3/uL 0.83-4.51 [facility] Automated lymphocyte count a s percentage of total leukocytesOrdered By: Fadumo Zelaya on 08-20-2023 Lymphocytes/100 WBC Auto (Unsp spec) 17.6 % 19-41 [facility] Basophil percentageOrdered B y: Fadumo Zelaya on 08-20-2023 Basophils/100 WBC (Bld) 0.7 % 0-1 [facility] Eosinophils/100 WBC (Bld) 0.7 % 0-5 [facility] Monocytes/100 WBC (Bld) 6.1 % 0-10 [facility] Neutrophils (Bld) [#/Vol] 10.9 10*3/uL 2.0-7.7 [facility] Neutrophils/100 WBC (Bld) 73.2 % 47-70 [facility] Immature granulocytes/100 WB C Auto (Bld)Ordered By: Fadumo Zelaya on 08-20-2023 Immature granulocytes/100 WBC (Bld) 1.700 % 0.0-0.9 [facility] Comment on above: IG% - Immature Granu locytes (promyelocytes, myelocytes and metamyelocytes) > 1% indicates that a LEFT SHIFT is Present. Laboratory - Drug toxicology Ordered By: Fadumo Zelaya on 08-20-2023 Amphetamines Ql (U) Negative <1000 ng/mL [facility] Benzodiazepines Ql (U) Negative < 200 ng/mL [facility] Cannabinoids Screen Ql (U) Positive < 50 ng/mL [facility] Cocaine Ql (U) Negative < 300 ng/mL [facility] Opiates Ql (U) Negative < 300 ng/mL [facility] Laboratory - Hematology and Cell countsOrdered By: Fadumo Zelaya on 08-20-2023 Nucleated RBC/100 WBC (Bld) [Ratio] 0 % 0-5 [facility] No Panel InformationOrdered By: Fadumo Zelaya on 08-20-2023 MDMA (Ecstasy) Screen Negative < 500 ng/mL [facility] Urine Barbiturates Screen Negative < 200 ng/mL [facility] Urine Drug Screen Comment [facility] Comment on above: CONFIRMATORY TESTING FOR ALL POSITIVE URINE DRUG SCREENRESULTS WILL ONLY BE SENT OUT UPON PHYSICIAN ORDER. [facility]ISTA Urine Drug Screen methods provide only preliminaryanalytical test results. A more specific alternate chemicalmethod must be used in order to obtain a confirmedanalytical result. Gas chromatography/mass spectrometery(GC/MS) is the preferred confirmatory method. Clinicalconsideration and professional judgement should be appliedto any drug of abuse test result, particularly whenpreliminary positive results are used. URINE TCA TESTING MUST BE ORDERED SEPARATELY. USE TESTMNEMONIC: [facility] Urine Methadone Screen Negative < 300 ng/mL [facility] Serum Treponema species anti body detectionOrdered By: Fadumo Zelaya on 08-20-2023 Treponema sp Ab Ql (S) Non-Reactive [facility] Urine phencyclidine (PCP) de tectionOrdered By: Fadumo Zelaya on 08-20-2023 Phencyclidine Ql (U) Negative < 25 ng/mL [facility] Laboratory - Chemistry and C hemistry - challengeon 08-14-2023 Glucose Ql (U) Negative [facility] Laboratory - Urinalysison Protein Ql (U) Negative [facility] Laboratory - Chemistry and C hemistry - challengeon 08-10-2023 Glucose Ql (U) Negative [facility] Laboratory - Urinalysison Protein Ql (U) Negative [facility] Laboratory - Chemistry and C hemistry - challengeon 08-07-2023 Glucose Ql (U) Negative [facility] Laboratory - Urinalysison Protein Ql (U) Negative [facility] Neisseria gonorrhoeae genita l PCROrdered By: Marietta Ghosh on 08-07-2023 N. gonorrhoeae DNA AMBER+probe Ql (Genital specimen) [facility] No Panel InformationOrdered By: Marietta Ghosh on 08-07-2023 Chlamydia trachomatis (PCR) [facility] Laboratory - Chemistry and C hemistry - challengeon 08-03-2023 Glucose Ql (U) Negative [facility] Laboratory - Urinalysison Protein Ql (U) Negative [facility] No Panel InformationOrdered By: Marietta Ghosh on 08-03-2023 Group B Streptococcus Culture Group B Beta Streptococcus is not isolated. [facility] Specimen Comment (Misc) Not Reportable [facility] Thin prep Papanicolaou smear with manual screeningOrdered By: Marietta Ghosh on 08-03-2023 Thin prep Papanicolaou smear with manual screening Negative Negative [facility] Laboratory - Chemistry and C hemistry - challengeon 07-31-2023 Glucose Ql (U) Negative [facility] Laboratory - Urinalysison Protein Ql (U) Negative [facility] Laboratory - Chemistry and C hemistry - challengeon 07-27-2023 Glucose Ql (U) Negative [facility] Laboratory - Urinalysison Protein Ql (U) Negative [facility] No Panel InformationOrdered By: Evelin Porter on 07-25-2023 Vaginal Amniotic Fluid Detection Negative Negative [facility] Comment on above: Amniotic fluid not p resent indicates No Rupture of FetalMembranes at time of specimen collection. Culture, urineOrdered By: Jovan Ghosh on 07-24-2023 Bacteria identified Cx Nom (U) Culture exhibits no growth. [facility] Laboratory - Chemistry and C hemistry - challengeon 07-17-2023 Glucose Ql (U) Negative [facility] Laboratory - Urinalysison Protein Ql (U) Negative [facility] Laboratory - Chemistry and C hemistry - challengeon 07-06-2023 Glucose Ql (U) Negative [facility] Laboratory - Urinalysison Protein Ql (U) Negative [facility] Laboratory - Chemistry and C hemistry - challengeon 06-22-2023 Glucose Ql (U) Negative [facility] Laboratory - Urinalysison Protein Ql (U) Negative [facility] Laboratory - Chemistry and C hemistry - challengeon 06-20-2023 Glucose Ql (U) Negative [facility] Laboratory - Urinalysison Protein Ql (U) Negative [facility] Absolute lymphocyte countOrd ered By: Anisa Blackmon on 06-14-2023 Lymphocytes Auto (Unsp spec) [#/Vol] 1.82 10*3/uL 0.83-4.51 [facility] Basophil percentageOrdered B y: Anisa Blacmkon on 06-14-2023 Basophils/100 WBC (Bld) 0.4 % 0-1 [facility] Eosinophils/100 WBC (Bld) 0.7 % 0-5 [facility] Neutrophils (Bld) [#/Vol] 9.1 10*3/uL 2.0-7.7 [facility] Neutrophils/100 WBC (Bld) 77.7 % 47-70 [facility] WBC (Bld) [#/Vol] 11.7 10*3/uL 4.4-11.0 [facility] Blood erythrocytes count (nu mber/volume)Ordered By: Anisa Blackmon on 06-14-2023 RBC (Bld) [#/Vol] 3.79 10*6/uL 4.2-5.4 [facility] Blood hemoglobin measurement (mass/volume)Ordered By: Anisa Blackmon on 06-14-2023 Hemoglobin (Bld) [Mass/Vol] 11.2 g/dL 12.0-15.0 [facility] Blood lymphocytes/100 leukoc ytesOrdered By: Anisa Blackmon on 06-14-2023 Lymphocytes/100 WBC (Bld) 15.6 % 19-41 [facility] Blood monocytes/100 leukocyt esOrdered By: Anisa Blackmon on 06-14-2023 Monocytes/100 WBC (Bld) 3.9 % 0-10 [facility] Blood platelet mean volumeOr dered By: Anisa Blackmon on 06-14-2023 Platelet mean volume (Bld) [Entitic vol] 10.0 fL 6.2-12.0 [facility] Determination of erythrocyte mean corpuscular volume (MCV)Ordered By: Anisa Blackmon on 06-14-2023 MCV (RBC) [Entitic vol] 93.1 fL 81-99 [facility] HIV 1 and HIV-2 antibody ass ay with HIV-1 p24 antigen detectionOrdered By: Anisa Blackmon on 06-14-2023 HIV 1+2 Ab+HIV1 p24 Ag IA Ql Non-Reactive Nonreactive [facility] Hematocrit Auto (Bld) [Volum e fraction]Ordered By: Anisa Blackmon on 06-14-2023 Hematocrit (Bld) [Volume fraction] 35.3 % 37-47 [facility] Laboratory - Hematology and Cell countsOrdered By: Anisa Blackmon on 06-14-2023 Erythrocyte distribution width (RBC) [Entitic vol] 47.8 fL 35.1-43.9 [facility] Erythrocyte distribution width (RBC) [Ratio] 14.0 % 11.6-14.6 [facility] Immature granulocytes/100 WBC (Bld) 1.700 % 0.0-0.9 [facility] Comment on above: IG% - Immature Granu locytes (promyelocytes, myelocytes and metamyelocytes) > 1% indicates that a LEFT SHIFT is Present. MCH (RBC) [Entitic mass] 29.6 pg 27.0-32.0 [facility] Nucleated RBC/100 WBC (Bld) [Ratio] 0 % 0-5 [facility] MCHC Auto (RBC) [Mass/Vol]Or dered By: Anisa Blackmon on 06-14-2023 MCHC (RBC) [Mass/Vol] 31.7 g/dL 32-36 [facility] Platelets bldOrdered By: Fidel Blackmon on 06-14-2023 Platelets (Bld) [#/Vol] 315 10*3/uL 150-450 [facility] Serum Treponema species anti body detectionOrdered By: Anisa Blackmon on 06-14-2023 Treponema sp Ab Ql (S) Non-Reactive [facility] Laboratory - Chemistry and C hemistry - challengeon 06-06-2023 Glucose Ql (U) Negative [facility] Laboratory - Urinalysison Protein Ql (U) Negative [facility] Laboratory - Chemistry and C hemistry - challengeon 05-18-2023 Glucose Ql (U) Negative [facility] Laboratory - Urinalysison Protein Ql (U) Negative [facility] Laboratory - Hematology and Cell countson 05-11-2023 HbA1c (Bld) [Mass fraction] 5.3 % 4.2-6.3 [facility] RUBEOon 05-11-2023 Rubeola IgG Ab Positive Normal [facility] ([place]) Comment on above: Result Comment: INTE RPRETATION OF RUBEOLA (MEASLES) IgG BY EIA: Negative: No detectable Measles IgG antibody. Presumed non-immune to measles virus. Positive: Measles IgG antibody Detected. Presumed immune to measles virus. If clinically indicated, order Measles IgM to rule out active infection. Equivocal: Equivocal for antibodies to Measles. Suggest repeat testing 10-14 days. Performed By: #### R UBIS, VARIS, HBSAB, RUBEO #### [place] [address] VARISon 05-11-[address] Positive Normal [facility] ([place]) Comment on above: Result Comment: INTE RPRETATION OF VARICELLA IMMUNE STATUS IgG BY EIA: Negative: No detectable VZV IgG antibody. Positive: VZV IgG antibody Detected. If clinically indicated, order Varicella IgM to rule out recent infection. Equivocal: Equivocal for antibodies to VZV. Suggest repeat testing in 10-14 days. Performed By: #### R UBIS, VARIS, HBSAB, RUBEO #### [place] [address] RUBISon 05-10-[address] Positive Normal Positive [facility] ([place]) Comment on above: Result Comment: This immune status assay detects IgM and/or IgG antibody to Rubella. Interpret results in conjunction with clinical history. POS: Antibody detected; exposure at undetermined recent or distant time. If clinically indicated, order Rubella IGM to rule out recent infection. NEG: No antibody detected. Performed By: #### R UBIS, VARIS, HBSAB, RUBEO #### [address] [address] HBSABon 05-09-2023 Hep B Surf Ab 8.8 mIU/mL Low >=10.0 [facility] ([place]) Comment on above: Result Comment: 0 to < 10.0 mIU/mL Nonreactive Patient is considered not to have protective immunity to HBV infection >/= 10.0 mIU/mL Reactive Patient is considered to have protective immunity to HBV infection. This assay is traceable to the World Health Organization (WHO) Hepatitis B Immunoglobulin 1st International Reference Preparation (1976). The accepted criteria for immunity to HBV is anti-HBs activity >/= 10.0 mIU/mL, as defined by the WHO International Reference Preparation. Performed By: #### R UBIS, VARIS, HBSAB, RUBEO #### [address] [address] Chlamydia trachomatis rRNA d etection by probe and target amplification methodOrdered By: Fadumo Zelaya on 03-23-2023 C. trachomatis rRNA AMBER+probe Ql (Unsp spec) Negative Negative [facility] Laboratory - Chemistry and C hemistry - challengeon 03-23-2023 Glucose Ql (U) Negative [facility] Laboratory - Microbiology an d Antimicrobial susceptibilityOrdered By: Fadumo Zelaya on 03-23-2023 N. gonorrhoeae DNA AMBER+probe Ql (Unsp spec) Negative Negative [facility] Comment on above: Performed at: =[facility] [id number] Director: Cely Funk MD, Phone: [phone] Laboratory - Urinalysison Protein Ql (U) Negative [facility] Laboratory - Chemistry and C hemistry - challengeon 02-23-2023 Glucose Ql (U) 500 g/dL [facility] Laboratory - Urinalysison Protein Ql (U) Negative [facility] Laboratory - Hematology and Cell countson 02-13-2023 HbA1c (Bld) [Mass fraction] 5.6 % 4.2-6.3 [facility] Absolute lymphocyte countOrd ered By: Evelin Porter on 02-08-2023 Lymphocytes Auto (Unsp spec) [#/Vol] 2.10 10*3/uL 0.83-4.51 [facility] Basophil percentageOrdered B y: Evelin Porter on 02-08-2023 Basophils/100 WBC (Bld) 0.4 % 0-1 [facility] Bilirubin [Mass/Vol] 0.20 mg/dL 0.20-1.00 [facility] Comment on above: For patients on eltr ombopag therapy, use of Dimension Hunter TBIL is not recommended. Chloride [Moles/Vol] 105 mmol/L 98-107 [facility] Eosinophils/100 WBC (Bld) 0.6 % 0-5 [facility] Glucose [Mass/Vol] 187 mg/dL 74-106 [facility] Comment on above: Fasting Glucose resu lt greater than or equal to 126 mg/dL suggests DIABETES MELLITUS per A.D.A. criteria. Neutrophils (Bld) [#/Vol] 9.1 10*3/uL 2.0-7.7 [facility] Neutrophils/100 WBC (Bld) 77.0 % 47-70 [facility] Potassium [Moles/Vol] 3.8 mmol/L 3.5-5.1 [facility] Protein [Mass/Vol] 7.3 g/dL 6.4-8.2 [facility] Sodium [Moles/Vol] 136 mmol/L 136-145 [facility] WBC (Bld) [#/Vol] 11.8 10*3/uL 4.4-11.0 [facility] Blood erythrocytes count (nu mber/volume)Ordered By: Evelin Porter on 02-08-2023 RBC (Bld) [#/Vol] 4.25 10*6/uL 4.2-5.4 [facility] Blood hemoglobin measurement (mass/volume)Ordered By: Evelin Porter on 02-08-2023 Hemoglobin (Bld) [Mass/Vol] 12.5 g/dL 12.0-15.0 [facility] Blood lymphocytes/100 leukoc ytesOrdered By: Evelin Porter on 02-08-2023 Lymphocytes/100 WBC (Bld) 17.8 % 19-41 [facility] Blood monocytes/100 leukocyt esOrdered By: Evelin Porter on 02-08-2023 Monocytes/100 WBC (Bld) 3.4 % 0-10 [facility] Blood platelet mean volumeOr dered By: Evelin Porter on 02-08-2023 Platelet mean volume (Bld) [Entitic vol] 9.6 fL 6.2-12.0 [facility] Determination of erythrocyte mean corpuscular volume (MCV)Ordered By: Evelin Porter on 02-08-2023 MCV (RBC) [Entitic vol] 89.9 fL 81-99 [facility] Gestational diabetes screen 1-hour screen with 50g oral glucose loadOrdered By: Evelin Porter on 02-08-2023 Glucose 1 Hr post 50 g glucose PO [Mass/Vol] 187 mg/dL 70-140 [facility] HIV 1 and HIV-2 antibody ass ay with HIV-1 p24 antigen detectionOrdered By: Evelin Porter on 02-08-2023 HIV 1+2 Ab+HIV1 p24 Ag IA Ql Non-Reactive Nonreactive [facility] Hematocrit Auto (Bld) [Volum e fraction]Ordered By: Evelin Porter on 02-08-2023 Hematocrit (Bld) [Volume fraction] 38.2 % 37-47 [facility] Laboratory - Chemistry and C hemistry - challengeOrdered By: Evelin Porter on 02-08-2023 ALP [Catalytic activity/Vol] 92 U/L 45-117 [facility] ALT [Catalytic activity/Vol] U/L 13-56 [facility] CO2 [Moles/Vol] 24.0 mmol/L 21.0-32.0 [facility] Globulin (S) [Mass/Vol] 4.3 g/dL 2.2-4.2 [facility] Urea nitrogen/Creatinine [Mass ratio] 13.9 mg/mg 10-20 [facility] Laboratory - Hematology and Cell countsOrdered By: Evelin Porter on 02-08-2023 Erythrocyte distribution width (RBC) [Entitic vol] 47.7 fL 35.1-43.9 [facility] Erythrocyte distribution width (RBC) [Ratio] 14.5 % 11.6-14.6 [facility] Immature granulocytes/100 WBC (Bld) 0.800 % 0.0-0.9 [facility] Comment on above: IG% - Immature Granu locytes (promyelocytes, myelocytes and metamyelocytes) > 1% indicates that a LEFT SHIFT is Present. MCH (RBC) [Entitic mass] 29.4 pg 27.0-32.0 [facility] Nucleated RBC/100 WBC (Bld) [Ratio] 0 % 0-5 [facility] MCHC Auto (RBC) [Mass/Vol]Or dered By: Evelin Porter on 02-08-2023 MCHC (RBC) [Mass/Vol] 32.7 g/dL 32-36 [facility] No Panel InformationOrdered By: Evelin Porter on 02-08-2023 Estimated GFR (MDRD) Amer 168 mL/min >60 [facility] Comment on above: GFR Calc Estimated GFR (MDRD) Non-Af Amer 139 mL/min >60 [facility] Comment on above: Non- GFR Calc Hepatitis B Surface Antigen Non-Reactive Nonreactive [facility] Hepatitis C Antibody Non-Reactive Nonreactive [facility] Comment on above: Non Reactive: < 0.8 Equivocal: >/= 0.8 to < 1.0 Reactive: >/= 1.0The CDC recommends that a reactive/equivocal HCV antibody result be followed up by the HCV Nucleic Acid Amplificationtest (774836) Miscellaneous Test Comment MAILED SPECIMEN [facility] Rubella IgG Antibody Reactive Nonreactive [facility] Comment on above: Antibody Results Int erpretation of Immune Status Non Reactive Presumed Non-Immune Equivocal Equivocal Reactive Presumed Immune Platelets bldOrdered By: Gladis Porter on 02-08-2023 Platelets (Bld) [#/Vol] 375 10*3/uL 150-450 [facility] Serum Treponema species anti body detectionOrdered By: Evelin Porter on 02-08-2023 Treponema sp Ab Ql (S) Non-Reactive [facility] Serum or plasma albumin jose cruz urement (mass/volume)Ordered By: Evelin Porter on 02-08-2023 Albumin [Mass/Vol] 3.0 g/dL 3.2-5.0 [facility] Serum or plasma albumin/glob ulin mass ratioOrdered By: Evelin Porter on 02-08-2023 Albumin/Globulin [Mass ratio] 0.7 {ratio} 0.9-2.4 [facility] Serum or plasma calcium jose cruz urement (mass/volume)Ordered By: Evelin Porter on 02-08-2023 Calcium [Mass/Vol] 9.1 mg/dL 8.5-10.1 [facility] Serum or plasma creatinine m easurement (mass/volume)Ordered By: Evelin Porter on 02-08-2023 Creatinine [Mass/Vol] 0.58 mg/dL 0.55-1.02 [facility] Comment on above: The validity of the calculated GFR & GFRAA in patients over 70 years has not been determined. Clinical correlation is essential. Serum or plasma urea nitroge n measurement (mass/volume)Ordered By: Evelin Porter on 02-08-2023 Urea nitrogen [Mass/Vol] 8 mg/dL 7-18 [facility] Thin prep Papanicolaou smear with manual screeningOrdered By: Evelin Porter on 02-08-2023 Thin prep Papanicolaou smear with manual screening 9 U/L 15-37 [facility] Thin prep Papanicolaou smear with manual screening 7 5-15 [facility] Cervical or vagninal specime n microscopic examination by cytology stain (reported asOrdered By: Evelin Porter on 01-25-2023 Cytology report Cyto stain Doc (Cvx/Vag) Comment . [facility] Comment on above: The Pap smear is a s creening test designed to aid in thedetection of premalignant and malignant conditions of theuterine cervix. It is not a diagnostic procedure andshould not be used as the sole means of detecting cervicalcancer. Both false-positive and false-negative reports dooccur. Chlamydia trachomatis rRNA d etection by probe and target amplification methodOrdered By: Evelin Porter on 01-25-2023 C. trachomatis rRNA AMBER+probe Ql (Unsp spec) Positive Negative [facility] Culture, urineOrdered By: Davi Porter on 01-25-2023 Bacteria identified Cx Nom (U) Positive [facility] Detection in cervical specim en of any of human papilloma virus (HPV) 16, 18, 31, 33,Ordered By: Evelin Porter on 01-25-2023 HPV 16+18+31+33+35+39+45+51 +52+56+58+59+66+68 DNA Probe+sig amp Ql (Cvx) Negative Negative [facility] Comment on above: This nucleic acid am plification test detects fourteen high-risk HPV types (16,18,31,33,35,39,45,51,52,56,58,59,66,68)without differentiation. Laboratory - CytologyOrdered By: Evelin Porter on 01-25-2023 Mgmt Consultant Cyto stain Nom (Cvx/Vag) [ID] Comment . [facility] Comment on above: Guillermo Coates totechnologist (ASCP) Laboratory - Drug toxicology Ordered By: Evelin Porter on 01-25-2023 Amphetamines Ql (U) Negative <1000 ng/mL [facility] Benzodiazepines Ql (U) Negative < 200 ng/mL [facility] Cannabinoids Screen Ql (U) Positive < 50 ng/mL [facility] Cocaine Ql (U) Negative < 300 ng/mL [facility] Opiates Ql (U) Negative < 300 ng/mL [facility] Laboratory - Microbiology an d Antimicrobial susceptibilityOrdered By: Evelin Porter on 01-25-2023 N. gonorrhoeae DNA AMBER+probe Ql (Unsp spec) Negative Negative [facility] Comment on above: Performed at: =[facility] [address] [place] [id number] Director: Cely Funk MD, Phone: [phone] Laboratory - Miscellaneous t estsOrdered By: Evelin Porter on 01-25-2023 Service comment (Unsp spec) [Interp] Comment . [facility] Comment on above: This liquid based Th inPrep(R) pap test was screened withthe use of an image guided system. Service comment (Unsp spec) [Interp] . . [facility] Liquid-based cerv Pap + CT/G C by AMBER w reflex to high-risk HPV for ASCUSOrdered By: Evelin Porter on 01-25-2023 Cytology report Cyto stain.thin prep Doc (Cvx/Vag) Comment . [facility] Comment on above: Criteria not met, HP V Genotype not performed.Performed at: - [address] [id number] Director: Cely Funk MD, Phone: [phone] at: =[facility] [id number] Director: Cely Funk MD, Phone: [phone] No Panel InformationOrdered By: Evelin Porter on 01-25-2023 MDMA (Ecstasy) Screen Negative < 500 ng/mL [facility] Pathology report final diagnosis Narrative Comment . [facility] Comment on above: NEGATIVE FOR INTRAEP ITHELIAL LESION OR MALIGNANCY. Urine Barbiturates Screen Negative < 200 ng/mL [facility] Urine Drug Screen Comment [facility] Comment on above: CONFIRMATORY TESTING FOR ALL POSITIVE URINE DRUG SCREENRESULTS WILL ONLY BE SENT OUT UPON PHYSICIAN ORDER. [facility]ISTA Urine Drug Screen methods provide only preliminaryanalytical test results. A more specific alternate chemicalmethod must be used in order to obtain a confirmedanalytical result. Gas chromatography/mass spectrometery(GC/MS) is the preferred confirmatory method. Clinicalconsideration and professional judgement should be appliedto any drug of abuse test result, particularly whenpreliminary positive results are used. URINE TCA TESTING MUST BE ORDERED SEPARATELY. USE TESTMNEMONIC: [facility] Urine Methadone Screen Negative < 300 ng/mL [facility] Urine creatinine measurement (mass/volume)Ordered By: Evelin Porter on 01-25-2023 Creatinine (U) [Mass/Vol] 344.00 mg/dL NO RANGE EST. [facility] Urine phencyclidine (PCP) de tectionOrdered By: Evelin Porter on 01-25-2023 Phencyclidine Ql (U) Negative < 25 ng/mL [facility] Urine protein measurement (m ass/volume)Ordered By: Evelin Porter on 01-25-2023 Protein (U) [Mass/Vol] 44.5 mg/dL 0.0-11.8 [facility] Urine protein/creatinine mas s ratioOrdered By: Evelin Porter on 01-25-2023 Protein/Creatinine (U) [Mass ratio] 129 mg/g CRE 0-200 [facility] CBCon 04-02-2017 Erythrocyte distribution width Auto Ratio (RBC) 13.0 % Normal 11-14.5 [facility] Comment on above: Performed By: #### L [id number] ####[facility] [id number] [place], [place] [address]Cm# [phone] Erythrocytes (RBC) 0.0 % Normal [facility] than 1 [facility] Comment on above: Performed By: #### L [id number] ####[facility] [id number] [place], [place] [address]Xg# [phone] Erythrocytes (RBC) 4.40 M/CU MM Normal 3.90-5.30 [facility] Comment on above: Performed By: #### L [id number] ####[facility] [id number] [place], [place] [address]Oq# [phone] Hematocrit (HCT) 38.7 % Normal 35.0-47.0 [facility] Comment on above: Performed By: #### L [id number] ####[facility] [id number] [place], [place] [address]Jg# [phone] Hemoglobin mass conc (Bld) 13.1 g/dL Normal 11.5-15.5 [facility] Comment on above: Performed By: #### L [id number] ####[facility] [id number] [place], [place] [address]Ic# [phone] MCHC mass conc (RBC) 33.9 g/dL Normal 32.0-36.0 [facility] Comment on above: Performed By: #### L [id number] ####[facility] [id number] [place], [place] [address]Fv# [phone] MCV 88.0 fL Normal 80.0-99.0 [facility] Comment on above: Performed By: #### L [id number] ####[facility] [id number] [place], [place] [address]Np# [phone] Platelet mean volume (PMV) 10.2 fL Normal 9.4-12.4 [facility] Comment on above: Performed By: #### L 200.93164 ####[facility] [id number] [place], [place] [address]Vw# [phone] Platelets 364 K/CU MM Normal 150-450 [facility] [facility] Comment on above: Performed By: #### L 200.87274 ####[facility] [id number] [place], [place] [address]Qf# [phone] WBC (Leukocytes) 9.9 K/CU MM Normal 4.5-11.0 [facility] Comment on above: Performed By: #### L 200.25677 ####[facility] [id number] [place] [address]Bm# [phone] CMPon 04-02-2017 Alanine aminotransferase (ALT) 11 U/L Low 13-61 [facility] Comment on above: Performed By: #### L 500.50497, L500.55761 ####[facility] [id number] [place], [place] [address]Xr# [phone] Albumin 3.9 g/dL Normal 3.2-5.0 [facility] Comment on above: Performed By: #### L 500.28877, L500.66585 ####[facility] [id number] [place], [place] [address]Mb# [phone] Albumin/Globulin Ratio 1.1 {ratio} Normal 0.8-2.0 [facility] Comment on above: Performed By: #### L 500.01997, L500.19590 ####[facility] [id number] [place], [place] [address]Rk# [phone] ALK PHOS 160 U/L High 45-117 [facility] Comment on above: Performed By: #### L 500.96691, L500.77690 ####[facility] [id number] [place], [place] [address]Re# [phone] Anion gap 8 mmol/L Normal 5-16 [facility] Comment on above: Performed By: #### L 500.23830, L500.23804 ####[facility] [id number] [place], [place] [address]Ma# [phone] BILI TOTAL 0.3 MG/DL Normal 0.2-1.0 [facility] Comment on above: Performed By: #### L 500.77562, L500.98720 ####[facility] [id number] [place], [place] [address]Lk# [phone] BUN/Creatinine Ratio 13 mg/mg Low 15-24 [facility] Comment on above: Performed By: #### L 500.58963, L500.95411 ####[facility] [id number] [place], [place] [address]Zl# [phone] Calcium 9.3 mg/dL Normal 8.5-10.1 [facility] Comment on above: Performed By: #### L 500.54366, L500.00316 ####[facility] [id number] [place], [place] [address]Sr# [phone] Chloride 106 mmol/L Normal 98-107 [facility] Comment on above: Performed By: #### L 500.20627, L500.51691 ####[facility] [id number] [place], [place] [address]Pf# [phone] CO2 24 mmol/L Normal 21-32 [facility] Comment on above: Performed By: #### L 500.22440, L500.41582 ####[facility] [id number] [place], [place] [address]Ur# [phone] Creatinine 0.957 mg/dL High 0.510-0.950 [facility] Comment on above: Result Comment: Marlyn ents receiving either N-Acetylcysteine (NAC) orMetamizole prior to venipuncture, may have falsely depressedresults. Performed By: #### L 500.35821, L500.49413 ####[facility] [id number] [place], [place] [address]Sg# [phone] Globulin 3.4 g/dL Normal 2.2-4.2 [facility] Comment on above: Performed By: #### L 500.62567, L500.64480 ####[facility] [id number] [place], [place] [address]Gi# [phone] Glucose mass conc 76 mg/dL Normal 70-100 [facility] Comment on above: Result Comment: 70-1 00-Normal Fasting; 279-240-Rvcvitwg Fasting; greaterthan 126 on more than one result-Diabetes. ADA guidelines Performed By: #### L 500.99371, L500.70888 ####[facility] [id number] [place], [place] [address]Eo# [phone] Potassium molar conc 4.2 mmol/L Normal 3.5-5.1 [facility] Comment on above: Performed By: #### L 500.83490, L500.72948 ####[facility] [id number] [place], [place] [address]Tr# [phone] Protein 7.3 g/dL Normal 6.0-8.5 [facility] Comment on above: Performed By: #### L 500.78450, L500.36013 ####[facility] [id number] [place], [place] [address]Uq# [phone] SGOT (AST) 10 U/L Normal 8-34 [facility] Comment on above: Performed By: #### L 500.46004, L500.41362 ####[facility] [id number] [place], [place] [address]Ux# [phone] Sodium 138 mmol/L Normal 136-145 [facility] Comment on above: Performed By: #### L 500.44783, L500.00407 ####[facility] [id number] [place], [place] [address]Lr# [phone] Urea nitrogen 12 mg/dL Normal 7-26 [facility] Comment on above: Performed By: #### L 500.27244, L500.11884 ####[facility] [id number] [place] [address]On# [phone] TSHon 04-02-2017 Thyroid stimulating hormone (TSH) 1.350 UIU/ML Normal 0.438-3.980 [facility] Comment on above: Result Comment: 3rd generation ultra sensitive TSH Performed By: #### L 500.02878, L500.22325 ####[facility] [id number] [place] [address]Cj# [phone] UR DRUG ABUSEon 04-02-2017 UR AMPH Negative Normal Kiondq=6790 [facility] Comment on above: Performed By: #### L 600.90538 ####[facility] [id number] [place] [address]Zi# [phone] UR SAGRARIO Negative Normal Vqyjdp=180 [facility] Comment on above: Performed By: #### L 600.81093 ####[facility] [id number] [place] [address]Ij# [phone] UR LULU Negative Normal Ozfpqz=318 [facility] Comment on above: Performed By: #### L 600.94920 ####[facility] [id number] [place] [address]Wq# [phone] UR ADRIANNE/THC Negative Normal Cutoff=50 [facility] Comment on above: Performed By: #### L 600.71556 ####[facility] [id number] [place] [address]Sz# [phone] UR TIP Negative Normal Vvggop=296 [facility] Comment on above: Performed By: #### L 600.54556 ####[facility] [id number] [place], [place] [address]Hg# [phone] UR OPIAT Negative Normal Wzztej=339 [facility] Comment on above: Performed By: #### L 600.02681 ####[facility] [id number] [place], [place] [address]Od# [phone] UR PCP Negative Normal Cutoff=25 [facility] Comment on above: Performed By: #### L 600.36756 ####[facility] [id number] [place], [place] [address]Xr# [phone] DRAB COMMENT Normal [facility] Comment on above: Result Comment: [employer] [employer] results are qualitative, providing apreliminary analytical result. A positive result for anassay should be confirmed by another nonimmunological,reference method. A negative result indicates that theassay material is either not present, or present at levelsbelow the cutoff threshold for the analytical method range(AMR) validation. Performed By: #### L 600.77253 ####[facility] [id number] [place] [address]Bq# [phone] Vital Signs Date Time Vital Sign Value Performing Clinician Wilfrido lewis 01-22-2025 14:48-0400 Body height 160.02 cm Bird KEITAC Work Phone: [facility] 01-22-2025 14:48-0400 Body mass index (BMI) [Ratio] 48.4 kg/m2 Bird Ruiz NP-C Work Phone: [facility] 01-22-2025 14:48-0400 Body weight 124 kg Bird Ruiz NP-C Work Phone: [facility] 01-22-2025 14:48-0400 Diastolic blood pressure 84 mm[Hg] Bird Ruiz NP-C Work Phone: [facility] 01-22-2025 14:48-0400 Systolic blood pressure 125 mm[Hg] Bird Ruiz NP-C Work Phone: [facility] 01-16-2025 16:07-0400 Body height 160.02 cm Bird Ruiz INDUSTRIAL PSYCHOLOGY PROFESSOR-C Work Phone: [facility] 01-16-2025 16:03-0400 Body mass index (BMI) [Ratio] 48.2 kg/m2 Bird Ruiz INDUSTRIAL PSYCHOLOGY PROFESSOR-C Work Phone: [facility] 01-16-2025 16:03-0400 Body weight 123.43 kg Bird Ruiz INDUSTRIAL PSYCHOLOGY PROFESSOR-C Work Phone: [facility] 01-16-2025 16:03-0400 Diastolic blood pressure 83 mm[Hg] Bird Ruiz INDUSTRIAL PSYCHOLOGY PROFESSOR-C Work Phone: [facility] 01-16-2025 16:03-0400 Systolic blood pressure 121 mm[Hg] Bird Ruiz INDUSTRIAL PSYCHOLOGY PROFESSOR-C Work Phone: [facility] 01-13-2025 19:19-0400 Body height 160.02 cm Bird Ruiz INDUSTRIAL PSYCHOLOGY PROFESSOR-C Work Phone: [facility] 01-13-2025 19:19-0400 Body mass index (BMI) [Ratio] 48.5 kg/m2 Bird Ruiz INDUSTRIAL PSYCHOLOGY PROFESSOR-C Work Phone: [facility] 01-13-2025 19:19-0400 Body weight 124.28 kg Bird Ruiz INDUSTRIAL PSYCHOLOGY PROFESSOR-C Work Phone: [facility] 01-13-2025 19:17-0400 Body temperature 97.6 [degF] Bird Ruiz INDUSTRIAL PSYCHOLOGY PROFESSOR-C Work Phone: [facility] 01-13-2025 19:17-0400 Diastolic blood pressure 66 mm[Hg] Bird Ruiz INDUSTRIAL PSYCHOLOGY PROFESSOR-C Work Phone: [facility] 01-13-2025 19:17-0400 Heart rate 86 /min Bird Ruiz INDUSTRIAL PSYCHOLOGY PROFESSOR-C Work Phone: [facility] 01-13-2025 19:17-0400 Respiratory rate 16 /min Bird Ruiz INDUSTRIAL PSYCHOLOGY PROFESSOR-C Work Phone: [facility] 01-13-2025 19:17-0400 Systolic blood pressure 128 mm[Hg] Bird Ruiz INDUSTRIAL PSYCHOLOGY PROFESSOR-C Work Phone: [facility] 01-08-2025 15:50-0400 Diastolic blood pressure 74 mm[Hg] Bird Ruiz INDUSTRIAL PSYCHOLOGY PROFESSOR-C Work Phone: [facility] 01-08-2025 15:50-0400 Heart rate 76 /min Bird Ruiz INDUSTRIAL PSYCHOLOGY PROFESSOR-C Work Phone: [facility] 01-08-2025 15:50-0400 Systolic blood pressure 135 mm[Hg] Bird Ruiz INDUSTRIAL PSYCHOLOGY PROFESSOR-C Work Phone: [facility] 01-08-2025 14:35-0400 SaO2% (BldA) [Mass fraction] 98 % Bird Ruiz INDUSTRIAL PSYCHOLOGY PROFESSOR-C Work Phone: [facility] 01-08-2025 14:30-0400 Body height 160.02 cm Bird Ruiz INDUSTRIAL PSYCHOLOGY PROFESSOR-C Work Phone: [facility] 01-08-2025 14:30-0400 Body mass index (BMI) [Ratio] 47.9 kg/m2 Bird Ruiz INDUSTRIAL PSYCHOLOGY PROFESSOR-C Work Phone: [facility] 01-08-2025 14:30-0400 Body temperature 96.9 [degF] Bird Ruiz INDUSTRIAL PSYCHOLOGY PROFESSOR-C Work Phone: [facility] 01-08-2025 14:30-0400 Body weight 122.9 kg Bird Ruiz INDUSTRIAL PSYCHOLOGY PROFESSOR-C Work Phone: [facility] 01-08-2025 14:30-0400 Respiratory rate 16 /min Bird Ruiz INDUSTRIAL PSYCHOLOGY PROFESSOR-C Work Phone: [facility] 01-08-2025 13:57-0400 Body height 160.02 cm Bird Ruiz INDUSTRIAL PSYCHOLOGY PROFESSOR-C Work Phone: [facility] 01-08-2025 13:50-0400 Body mass index (BMI) [Ratio] 48 kg/m2 Bird Ruiz INDUSTRIAL PSYCHOLOGY PROFESSOR-C Work Phone: [facility] 01-08-2025 13:50-0400 Body weight 123.03 kg Bird Ruiz INDUSTRIAL PSYCHOLOGY PROFESSOR-C Work Phone: [facility] 01-08-2025 13:50-0400 Diastolic blood pressure 82 mm[Hg] Bird Ruiz INDUSTRIAL PSYCHOLOGY PROFESSOR-C Work Phone: [facility] 01-08-2025 13:50-0400 Systolic blood pressure 140 mm[Hg] Bird Ruiz INDUSTRIAL PSYCHOLOGY PROFESSOR-C Work Phone: 5(025)537-8[address] [place] [address] 12-26-2024 14:28-0400 Body height 160.02 cm Bird Ruiz INDUSTRIAL PSYCHOLOGY PROFESSOR-C Work Phone: 1(516)864-[address] [place] [address] 12-26-2024 14:26-0400 Body mass index (BMI) [Ratio] 46.8 kg/m2 Bird Ruiz INDUSTRIAL PSYCHOLOGY PROFESSOR-C Work Phone: [facility] 12-26-2024 14:26-0400 Body weight 119.91 kg Bird Ruiz INDUSTRIAL PSYCHOLOGY PROFESSOR-C Work Phone: [facility] 12-26-2024 14:26-0400 Diastolic blood pressure 82 mm[Hg] Bird Ruiz INDUSTRIAL PSYCHOLOGY PROFESSOR-C Work Phone: [facility] 12-26-2024 14:26-0400 Systolic blood pressure 138 mm[Hg] Bird Ruiz INDUSTRIAL PSYCHOLOGY PROFESSOR-C Work Phone: [facility] 12-16-2024 10:39-0400 Body height 160.02 cm Bird Ruiz INDUSTRIAL PSYCHOLOGY PROFESSOR-C Work Phone: 7(454)[phone] [place] [address] 12-16-2024 10:39-0400 Body mass index (BMI) [Ratio] 47.2 kg/m2 Bird Ruiz INDUSTRIAL PSYCHOLOGY PROFESSOR-C Work Phone: [facility] 12-16-2024 10:39-0400 Body weight 121.1 kg Bird Ruiz INDUSTRIAL PSYCHOLOGY PROFESSOR-C Work Phone: [facility] 12-16-2024 10:39-0400 Diastolic blood pressure 77 mm[Hg] Bird Ruiz INDUSTRIAL PSYCHOLOGY PROFESSOR-C Work Phone: [facility] 12-16-2024 10:39-0400 Heart rate 88 /min Bird Ruiz INDUSTRIAL PSYCHOLOGY PROFESSOR-C Work Phone: [facility] 12-16-2024 10:39-0400 SaO2% (BldA) [Mass fraction] 97 % Bird Ruiz INDUSTRIAL PSYCHOLOGY PROFESSOR-C Work Phone: [facility] 12-16-2024 10:39-0400 Systolic blood pressure 120 mm[Hg] Bird Ruiz INDUSTRIAL PSYCHOLOGY PROFESSOR-C Work Phone: [facility] 12-11-2024 15:58-0400 Body height 160.02 cm Bird Ruiz INDUSTRIAL PSYCHOLOGY PROFESSOR-C Work Phone: [facility] 12-11-2024 15:51-0400 Body mass index (BMI) [Ratio] 46.6 kg/m2 Bird Ruiz INDUSTRIAL PSYCHOLOGY PROFESSOR-C Work Phone: [facility] 12-11-2024 15:51-0400 Body weight 119.4 kg Bird Ruiz INDUSTRIAL PSYCHOLOGY PROFESSOR-C Work Phone: [facility] 12-11-2024 15:51-0400 Diastolic blood pressure 78 mm[Hg] Bird Ruiz INDUSTRIAL PSYCHOLOGY PROFESSOR-C Work Phone: [facility] 12-11-2024 15:51-0400 Systolic blood pressure 124 mm[Hg] Bird Ruiz INDUSTRIAL PSYCHOLOGY PROFESSOR-C Work Phone: [facility] 11-11-2024 15:03-0400 Body height 160.02 cm Bird Ruiz INDUSTRIAL PSYCHOLOGY PROFESSOR-C Work Phone: [facility] 11-11-2024 15:03-0400 Body mass index (BMI) [Ratio] 46.3 kg/m2 Bird Ruiz INDUSTRIAL PSYCHOLOGY PROFESSOR-C Work Phone: [facility] 11-11-2024 15:03-0400 Body weight 118.61 kg Bird Ruiz INDUSTRIAL PSYCHOLOGY PROFESSOR-C Work Phone: [facility] 11-11-2024 15:03-0400 Diastolic blood pressure 82 mm[Hg] Bird Ruiz INDUSTRIAL PSYCHOLOGY PROFESSOR-C Work Phone: [facility] 11-11-2024 15:03-0400 Systolic blood pressure 120 mm[Hg] Bird Ruiz INDUSTRIAL PSYCHOLOGY PROFESSOR-C Work Phone: 9(935)203-[address] [place] [address] 10-31-2024 14:10-0400 Body mass index (BMI) [Ratio] 46.7 kg/m2 Bird Ruiz INDUSTRIAL PSYCHOLOGY PROFESSOR-C Work Phone: 3(574)943-278198 [place] [address] 10-31-2024 14:10-0400 Body weight 119.86 kg Bird Ruiz INDUSTRIAL PSYCHOLOGY PROFESSOR-C Work Phone: 4(572)153-086798 [place] [address] 10-31-2024 14:10-0400 Diastolic blood pressure 84 mm[Hg] Bird Ruiz INDUSTRIAL PSYCHOLOGY PROFESSOR-C Work Phone: 9(478)822-278798 [place] [address] 10-31-2024 14:10-0400 Systolic blood pressure 129 mm[Hg] Bird Ruiz INDUSTRIAL PSYCHOLOGY PROFESSOR-C Work Phone: 9(902)990-765[address] [place] [address] 10-02-2024 15:00-0400 Body mass index (BMI) [Ratio] 45.7 kg/m2 Bird Ruiz INDUSTRIAL PSYCHOLOGY PROFESSOR-C Work Phone: 3(407)062-287098 [place] [address] 10-02-2024 15:00-0400 Body weight 117.08 kg Bird Ruiz INDUSTRIAL PSYCHOLOGY PROFESSOR-C Work Phone: 1(605)332-947898 [place] [address] 10-02-2024 15:00-0400 Diastolic blood pressure 82 mm[Hg] Bird Ruiz INDUSTRIAL PSYCHOLOGY PROFESSOR-C Work Phone: 3(299)570-123298 [place] [address] 10-02-2024 15:00-0400 Systolic blood pressure 122 mm[Hg] Bird Ruiz INDUSTRIAL PSYCHOLOGY PROFESSOR-C Work Phone: 0(826)113-469398 [place] [address] 08-27-2024 15:30-0500 Body mass index (BMI) [Ratio] 45.2 kg/m2 Bird Ruiz INDUSTRIAL PSYCHOLOGY PROFESSOR-C Work Phone: [facility] 08-27-2024 15:30-0500 Body weight 115.77 kg Bird Ruiz INDUSTRIAL PSYCHOLOGY PROFESSOR-C Work Phone: [facility] 08-27-2024 15:30-0500 Diastolic blood pressure 82 mm[Hg] Bird Ruiz INDUSTRIAL PSYCHOLOGY PROFESSOR-C Work Phone: [facility] 08-27-2024 15:30-0500 Systolic blood pressure 135 mm[Hg] Bird Ruiz INDUSTRIAL PSYCHOLOGY PROFESSOR-C Work Phone: [facility] 08-01-2024 11:40-0500 Body mass index (BMI) [Ratio] 44.3 kg/m2 Bird Ruiz INDUSTRIAL PSYCHOLOGY PROFESSOR-C Work Phone: [facility] 08-01-2024 11:40-0500 Body weight 113.56 kg Bird Ruiz INDUSTRIAL PSYCHOLOGY PROFESSOR-C Work Phone: [facility] 08-01-2024 11:40-0500 Diastolic blood pressure 83 mm[Hg] Bird Ruiz INDUSTRIAL PSYCHOLOGY PROFESSOR-C Work Phone: [facility] 08-01-2024 11:40-0500 Systolic blood pressure 124 mm[Hg] Bird Ruiz INDUSTRIAL PSYCHOLOGY PROFESSOR-C Work Phone: [facility] 08-22-2023 08:42-0500 Body temperature 97.4 [degF] INDUSTRIAL PSYCHOLOGY PROFESSOR-C Bird Ruiz INDUSTRIAL PSYCHOLOGY PROFESSOR Work Phone: [facility] 08-22-2023 08:42-0500 Diastolic blood pressure 70 mm[Hg] INDUSTRIAL PSYCHOLOGY PROFESSOR-C Bird Ruiz INDUSTRIAL PSYCHOLOGY PROFESSOR Work Phone: [facility] 08-22-2023 08:42-0500 Heart rate 93 /min INDUSTRIAL PSYCHOLOGY PROFESSOR-C Bird Ruiz INDUSTRIAL PSYCHOLOGY PROFESSOR Work Phone: [facility] 08-22-2023 08:42-0500 Respiratory rate 16 /min INDUSTRIAL PSYCHOLOGY PROFESSOR-C Bird Ruiz INDUSTRIAL PSYCHOLOGY PROFESSOR Work Phone: [facility] 08-22-2023 08:42-0500 SaO2% (BldA) [Mass fraction] 98 % INDUSTRIAL PSYCHOLOGY PROFESSOR-Holden Ruiz INDUSTRIAL PSYCHOLOGY PROFESSOR Work Phone: [facility] 08-22-2023 08:42-0500 Systolic blood pressure 124 mm[Hg] INDUSTRIAL PSYCHOLOGY PROFESSOR-Holden Ruiz INDUSTRIAL PSYCHOLOGY PROFESSOR Work Phone: [facility] 08-20-2023 06:16-0500 Body height 160.02 cm INDUSTRIAL PSYCHOLOGY PROFESSOR-C Bird Ruiz INDUSTRIAL PSYCHOLOGY PROFESSOR Work Phone: [facility] 08-20-2023 06:16-0500 Body mass index (BMI) [Ratio] 47.9 kg/m2 INDUSTRIAL PSYCHOLOGY PROFESSOR-Holden Ruiz INDUSTRIAL PSYCHOLOGY PROFESSOR Work Phone: [facility] 08-20-2023 06:16-0500 Body weight 122.74 kg INDUSTRIAL PSYCHOLOGY PROFESSOR-Holden Ruiz INDUSTRIAL PSYCHOLOGY PROFESSOR Work Phone: [facility] 08-14-2023 11:12-0500 Body mass index (BMI) [Ratio] 47.3 kg/m2 INDUSTRIAL PSYCHOLOGY PROFESSOR-Holden Ruiz INDUSTRIAL PSYCHOLOGY PROFESSOR Work Phone: [facility] 08-14-2023 11:12-0500 Body weight 121.16 kg INDUSTRIAL PSYCHOLOGY PROFESSOR-Holden Ruiz INDUSTRIAL PSYCHOLOGY PROFESSOR Work Phone: [facility] 08-14-2023 11:12-0500 Diastolic blood pressure 79 mm[Hg] INDUSTRIAL PSYCHOLOGY PROFESSOR-Holden Ruiz INDUSTRIAL PSYCHOLOGY PROFESSOR Work Phone: [facility] 08-14-2023 11:12-0500 Systolic blood pressure 124 mm[Hg] INDUSTRIAL PSYCHOLOGY PROFESSOR-Holden Ruiz INDUSTRIAL PSYCHOLOGY PROFESSOR Work Phone: [facility] 08-10-2023 14:17-0500 Body height 160.02 cm PARMINDER-Holden Ruiz INDUSTRIAL PSYCHOLOGY PROFESSOR Work Phone: [facility] 08-10-2023 14:17-0500 Body mass index (BMI) [Ratio] 47.3 kg/m2 INDUSTRIAL PSYCHOLOGY PROFESSOR-Holden Ruiz INDUSTRIAL PSYCHOLOGY PROFESSOR Work Phone: [facility] 08-10-2023 14:17-0500 Body weight 121.16 kg INDUSTRIAL PSYCHOLOGY PROFESSOR-Holden Ruiz INDUSTRIAL PSYCHOLOGY PROFESSOR Work Phone: [facility] 08-10-2023 14:17-0500 Diastolic blood pressure 84 mm[Hg] INDUSTRIAL PSYCHOLOGY PROFESSOR-C Bird Ruiz INDUSTRIAL PSYCHOLOGY PROFESSOR Work Phone: [facility] 08-10-2023 14:17-0500 Systolic blood pressure 125 mm[Hg] INDUSTRIAL PSYCHOLOGY PROFESSOR-C Bird Ruiz INDUSTRIAL PSYCHOLOGY PROFESSOR Work Phone: [facility] 08-07-2023 11:21-0500 Body height 160.02 cm INDUSTRIAL PSYCHOLOGY PROFESSOR-Holden Ruiz INDUSTRIAL PSYCHOLOGY PROFESSOR Work Phone: [facility] 08-07-2023 11:18-0500 Body mass index (BMI) [Ratio] 47.2 kg/m2 INDUSTRIAL PSYCHOLOGY PROFESSOR-Holden Ruiz INDUSTRIAL PSYCHOLOGY PROFESSOR Work Phone: [facility] 08-07-2023 11:18-0500 Body weight 121.1 kg INDUSTRIAL PSYCHOLOGY PROFESSOR-Holden Ruiz INDUSTRIAL PSYCHOLOGY PROFESSOR Work Phone: [facility] 08-07-2023 11:18-0500 Diastolic blood pressure 76 mm[Hg] INDUSTRIAL PSYCHOLOGY PROFESSOR-Holden Ruiz INDUSTRIAL PSYCHOLOGY PROFESSOR Work Phone: [facility] 08-07-2023 11:18-0500 Systolic blood pressure 120 mm[Hg] INDUSTRIAL PSYCHOLOGY PROFESSOR-Holden Ruiz INDUSTRIAL PSYCHOLOGY PROFESSOR Work Phone: [facility] 08-03-2023 13:12-0500 Body mass index (BMI) [Ratio] 46.5 kg/m2 INDUSTRIAL PSYCHOLOGY PROFESSOR-Holden Ruiz INDUSTRIAL PSYCHOLOGY PROFESSOR Work Phone: [facility] 08-03-2023 13:12-0500 Body weight 119.29 kg INDUSTRIAL PSYCHOLOGY PROFESSOR-Holden Ruiz INDUSTRIAL PSYCHOLOGY PROFESSOR Work Phone: [facility] 08-03-2023 13:12-0500 Diastolic blood pressure 77 mm[Hg] PARMINDER-Holden Ruiz INDUSTRIAL PSYCHOLOGY PROFESSOR Work Phone: [facility] 08-03-2023 13:12-0500 Systolic blood pressure 123 mm[Hg] INDUSTRIAL PSYCHOLOGY PROFESSOR-C Bird Ruiz INDUSTRIAL PSYCHOLOGY PROFESSOR Work Phone: [facility] 07-31-2023 13:41-0500 Body mass index (BMI) [Ratio] 46 kg/m2 INDUSTRIAL PSYCHOLOGY PROFESSOR-C Bird Ruiz INDUSTRIAL PSYCHOLOGY PROFESSOR Work Phone: [facility] 07-31-2023 13:41-0500 Body weight 117.93 kg INDUSTRIAL PSYCHOLOGY PROFESSOR-C Bird Ruiz INDUSTRIAL PSYCHOLOGY PROFESSOR Work Phone: [facility] 07-31-2023 13:41-0500 Diastolic blood pressure 84 mm[Hg] INDUSTRIAL PSYCHOLOGY PROFESSOR-C Bird Ruiz INDUSTRIAL PSYCHOLOGY PROFESSOR Work Phone: [facility] 07-31-2023 13:41-0500 Systolic blood pressure 124 mm[Hg] INDUSTRIAL PSYCHOLOGY PROFESSOR-C Bird Ruiz INDUSTRIAL PSYCHOLOGY PROFESSOR Work Phone: [facility] 07-27-2023 14:43-0500 Body mass index (BMI) [Ratio] 46.4 kg/m2 INDUSTRIAL PSYCHOLOGY PROFESSOR-C Bird Ruiz INDUSTRIAL PSYCHOLOGY PROFESSOR Work Phone: [facility] 07-27-2023 14:43-0500 Body weight 118.89 kg INDUSTRIAL PSYCHOLOGY PROFESSOR-C Bird Ruiz INDUSTRIAL PSYCHOLOGY PROFESSOR Work Phone: [facility] 07-27-2023 14:43-0500 Diastolic blood pressure 79 mm[Hg] INDUSTRIAL PSYCHOLOGY PROFESSOR-C Bird Ruiz INDUSTRIAL PSYCHOLOGY PROFESSOR Work Phone: [facility] 07-27-2023 14:43-0500 Systolic blood pressure 113 mm[Hg] INDUSTRIAL PSYCHOLOGY PROFESSOR-C Bird Ruiz INDUSTRIAL PSYCHOLOGY PROFESSOR Work Phone: [facility] 07-25-2023 16:32-0500 Diastolic blood pressure 73 mm[Hg] INDUSTRIAL PSYCHOLOGY PROFESSOR-C Bird Ruiz INDUSTRIAL PSYCHOLOGY PROFESSOR Work Phone: [facility] 07-25-2023 16:32-0500 Heart rate 90 /min INDUSTRIAL PSYCHOLOGY PROFESSOR-Holden Ruiz INDUSTRIAL PSYCHOLOGY PROFESSOR Work Phone: [facility] 07-25-2023 16:32-0500 Systolic blood pressure 119 mm[Hg] INDUSTRIAL PSYCHOLOGY PROFESSOR-C Bird Ruiz INDUSTRIAL PSYCHOLOGY PROFESSOR Work Phone: [facility] 07-25-2023 15:56-0500 SaO2% (BldA) [Mass fraction] 98 % INDUSTRIAL PSYCHOLOGY PROFESSOR-Holden Ruiz INDUSTRIAL PSYCHOLOGY PROFESSOR Work Phone: [facility] 07-25-2023 15:34-0500 Body height 160.02 cm INDUSTRIAL PSYCHOLOGY PROFESSOR-Holden Ruiz INDUSTRIAL PSYCHOLOGY PROFESSOR Work Phone: [facility] 07-25-2023 15:34-0500 Body mass index (BMI) [Ratio] 46 kg/m2 INDUSTRIAL PSYCHOLOGY PROFESSOR-Holden Ruiz INDUSTRIAL PSYCHOLOGY PROFESSOR Work Phone: [facility] 07-25-2023 15:34-0500 Body weight 117.93 kg INDUSTRIAL PSYCHOLOGY PROFESSOR-Holden Ruiz INDUSTRIAL PSYCHOLOGY PROFESSOR Work Phone: [facility] 07-25-2023 15:26-0500 Body temperature 98.1 [degF] INDUSTRIAL PSYCHOLOGY PROFESSOR-C Bird Ruiz INDUSTRIAL PSYCHOLOGY PROFESSOR Work Phone: [facility] 07-24-2023 13:57-0500 Body mass index (BMI) [Ratio] 46.4 kg/m2 INDUSTRIAL PSYCHOLOGY PROFESSOR-Holden Ruiz INDUSTRIAL PSYCHOLOGY PROFESSOR Work Phone: [facility] 07-24-2023 13:57-0500 Body weight 118.89 kg INDUSTRIAL PSYCHOLOGY PROFESSOR-Holden Ruiz INDUSTRIAL PSYCHOLOGY PROFESSOR Work Phone: [facility] 07-24-2023 13:57-0500 Diastolic blood pressure 81 mm[Hg] INDUSTRIAL PSYCHOLOGY PROFESSOR-Holden Ruiz INDUSTRIAL PSYCHOLOGY PROFESSOR Work Phone: [facility] 07-24-2023 13:57-0500 Systolic blood pressure 120 mm[Hg] INDUSTRIAL PSYCHOLOGY PROFESSOR-Holden Ruiz INDUSTRIAL PSYCHOLOGY PROFESSOR Work Phone: [facility] 07-17-2023 14:39-0500 Body mass index (BMI) [Ratio] 46.4 kg/m2 INDUSTRIAL PSYCHOLOGY PROFESSOR-Holden Ruiz INDUSTRIAL PSYCHOLOGY PROFESSOR Work Phone: [facility] 07-17-2023 14:39-0500 Body weight 118.84 kg INDUSTRIAL PSYCHOLOGY PROFESSOR-C Bird Ruiz INDUSTRIAL PSYCHOLOGY PROFESSOR Work Phone: [facility] 07-17-2023 14:39-0500 Diastolic blood pressure 77 mm[Hg] INDUSTRIAL PSYCHOLOGY PROFESSOR-C Bird Ruiz INDUSTRIAL PSYCHOLOGY PROFESSOR Work Phone: [facility] 07-17-2023 14:39-0500 Systolic blood pressure 122 mm[Hg] INDUSTRIAL PSYCHOLOGY PROFESSOR-C Bird Ruiz INDUSTRIAL PSYCHOLOGY PROFESSOR Work Phone: [facility] 07-13-2023 15:20-0500 Body mass index (BMI) [Ratio] 45.9 kg/m2 INDUSTRIAL PSYCHOLOGY PROFESSOR-C Bird Ruiz INDUSTRIAL PSYCHOLOGY PROFESSOR Work Phone: [facility] 07-13-2023 15:20-0500 Body weight 117.65 kg INDUSTRIAL PSYCHOLOGY PROFESSOR-C Bird Ruiz INDUSTRIAL PSYCHOLOGY PROFESSOR Work Phone: [facility] 07-13-2023 15:20-0500 Diastolic blood pressure 80 mm[Hg] INDUSTRIAL PSYCHOLOGY PROFESSOR-C Bird Ruiz INDUSTRIAL PSYCHOLOGY PROFESSOR Work Phone: [facility] 07-13-2023 15:20-0500 Systolic blood pressure 124 mm[Hg] INDUSTRIAL PSYCHOLOGY PROFESSOR-C Bird Ruiz INDUSTRIAL PSYCHOLOGY PROFESSOR Work Phone: [facility] 07-06-2023 13:47-0500 Body height 160.02 cm INDUSTRIAL PSYCHOLOGY PROFESSOR-Holden Ruiz INDUSTRIAL PSYCHOLOGY PROFESSOR Work Phone: [facility] 07-06-2023 13:44-0500 Body mass index (BMI) [Ratio] 47.5 kg/m2 INDUSTRIAL PSYCHOLOGY PROFESSOR-C Bird Ruiz INDUSTRIAL PSYCHOLOGY PROFESSOR Work Phone: [facility] 07-06-2023 13:44-0500 Body weight 121.56 kg INDUSTRIAL PSYCHOLOGY PROFESSOR-Holden Ruiz INDUSTRIAL PSYCHOLOGY PROFESSOR Work Phone: [facility] 07-06-2023 13:44-0500 Diastolic blood pressure 76 mm[Hg] INDUSTRIAL PSYCHOLOGY PROFESSOR-Holden Ruiz INDUSTRIAL PSYCHOLOGY PROFESSOR Work Phone: [facility] 07-06-2023 13:44-0500 Systolic blood pressure 120 mm[Hg] INDUSTRIAL PSYCHOLOGY PROFESSOR-C Bird Ruiz INDUSTRIAL PSYCHOLOGY PROFESSOR Work Phone: [facility] 06-22-2023 14:12-0500 Body height 160.02 cm INDUSTRIAL PSYCHOLOGY PROFESSOR-Holden Ruiz INDUSTRIAL PSYCHOLOGY PROFESSOR Work Phone: [facility] 06-22-2023 14:07-0500 Body mass index (BMI) [Ratio] 45.7 kg/m2 INDUSTRIAL PSYCHOLOGY PROFESSOR-Holden Ruiz INDUSTRIAL PSYCHOLOGY PROFESSOR Work Phone: [facility] 06-22-2023 14:07-0500 Body weight 117.14 kg INDUSTRIAL PSYCHOLOGY PROFESSOR-C Bird Ruiz INDUSTRIAL PSYCHOLOGY PROFESSOR Work Phone: [facility] 06-22-2023 14:07-0500 Diastolic blood pressure 53 mm[Hg] INDUSTRIAL PSYCHOLOGY PROFESSOR-C Bird Ruiz INDUSTRIAL PSYCHOLOGY PROFESSOR Work Phone: [facility] 06-22-2023 14:07-0500 Systolic blood pressure 91 mm[Hg] INDUSTRIAL PSYCHOLOGY PROFESSOR-Holden Ruiz INDUSTRIAL PSYCHOLOGY PROFESSOR Work Phone: [facility] 06-20-2023 11:01-0500 Body mass index (BMI) [Ratio] 45.6 kg/m2 INDUSTRIAL PSYCHOLOGY PROFESSOR-Holden Ruiz INDUSTRIAL PSYCHOLOGY PROFESSOR Work Phone: [facility] 06-20-2023 11:01-0500 Body weight 116.71 kg INDUSTRIAL PSYCHOLOGY PROFESSOR-Holden Ruiz INDUSTRIAL PSYCHOLOGY PROFESSOR Work Phone: [facility] 06-20-2023 11:01-0500 Diastolic blood pressure 82 mm[Hg] INDUSTRIAL PSYCHOLOGY PROFESSOR-C Bird Ruiz INDUSTRIAL PSYCHOLOGY PROFESSOR Work Phone: [facility] 06-20-2023 11:01-0500 Systolic blood pressure 122 mm[Hg] INDUSTRIAL PSYCHOLOGY PROFESSOR-Holden Ruiz INDUSTRIAL PSYCHOLOGY PROFESSOR Work Phone: [facility] 06-06-2023 13:33-0500 Body height 160.02 cm INDUSTRIAL PSYCHOLOGY PROFESSOR-Holden Ruiz INDUSTRIAL PSYCHOLOGY PROFESSOR Work Phone: [facility] 06-06-2023 13:33-0500 Body mass index (BMI) [Ratio] 45.7 kg/m2 INDUSTRIAL PSYCHOLOGY PROFESSOR-C Bird Ruiz INDUSTRIAL PSYCHOLOGY PROFESSOR Work Phone: [facility] 06-06-2023 13:33-0500 Body weight 117.02 kg INDUSTRIAL PSYCHOLOGY PROFESSOR-C Bird Ruiz INDUSTRIAL PSYCHOLOGY PROFESSOR Work Phone: [facility] 06-06-2023 13:33-0500 Diastolic blood pressure 82 mm[Hg] INDUSTRIAL PSYCHOLOGY PROFESSOR-C Bird Ruiz INDUSTRIAL PSYCHOLOGY PROFESSOR Work Phone: [facility] 06-06-2023 13:33-0500 Systolic blood pressure 116 mm[Hg] INDUSTRIAL PSYCHOLOGY PROFESSOR-C Bird Ruiz INDUSTRIAL PSYCHOLOGY PROFESSOR Work Phone: [facility] 05-18-2023 13:52-0500 Body mass index (BMI) [Ratio] 43.8 kg/m2 INDUSTRIAL PSYCHOLOGY PROFESSOR-C Bird Ruiz INDUSTRIAL PSYCHOLOGY PROFESSOR Work Phone: [facility] 05-18-2023 13:52-0500 Body weight 112.23 kg INDUSTRIAL PSYCHOLOGY PROFESSOR-C Bird Ruiz INDUSTRIAL PSYCHOLOGY PROFESSOR Work Phone: [facility] 05-18-2023 13:52-0500 Diastolic blood pressure 83 mm[Hg] INDUSTRIAL PSYCHOLOGY PROFESSOR-C Bird Ruiz INDUSTRIAL PSYCHOLOGY PROFESSOR Work Phone: [facility] 05-18-2023 13:52-0500 Systolic blood pressure 130 mm[Hg] INDUSTRIAL PSYCHOLOGY PROFESSOR-C Bird Ruiz INDUSTRIAL PSYCHOLOGY PROFESSOR Work Phone: [facility] 05-11-2023 14:40-0500 Body mass index (BMI) [Ratio] 43.4 kg/m2 INDUSTRIAL PSYCHOLOGY PROFESSOR-C Bird Ruiz INDUSTRIAL PSYCHOLOGY PROFESSOR Work Phone: [facility] 05-11-2023 14:40-0500 Body temperature 98 [degF] INDUSTRIAL PSYCHOLOGY PROFESSOR-Holden Ruiz INDUSTRIAL PSYCHOLOGY PROFESSOR Work Phone: [facility] 05-11-2023 14:40-0500 Body weight 111.3 kg INDUSTRIAL PSYCHOLOGY PROFESSOR-Holden Ruiz INDUSTRIAL PSYCHOLOGY PROFESSOR Work Phone: [facility] 05-11-2023 14:40-0500 Diastolic blood pressure 68 mm[Hg] INDUSTRIAL PSYCHOLOGY PROFESSOR-C Bird Ruiz INDUSTRIAL PSYCHOLOGY PROFESSOR Work Phone: [facility] 05-11-2023 14:40-0500 Heart rate 76 /min INDUSTRIAL PSYCHOLOGY PROFESSOR-C Bird Ruiz INDUSTRIAL PSYCHOLOGY PROFESSOR Work Phone: [facility] 05-11-2023 14:40-0500 Respiratory rate 16 /min INDUSTRIAL PSYCHOLOGY PROFESSOR-C Bird Ruiz INDUSTRIAL PSYCHOLOGY PROFESSOR Work Phone: [facility] 05-11-2023 14:40-0500 SaO2% (BldA) [Mass fraction] 97 % INDUSTRIAL PSYCHOLOGY PROFESSOR-C Bird Ruiz INDUSTRIAL PSYCHOLOGY PROFESSOR Work Phone: [facility] 05-11-2023 14:40-0500 Systolic blood pressure 102 mm[Hg] INDUSTRIAL PSYCHOLOGY PROFESSOR-C Bird Ruiz INDUSTRIAL PSYCHOLOGY PROFESSOR Work Phone: [facility] 03-23-2023 14:09-0400 Body height 160.02 cm INDUSTRIAL PSYCHOLOGY PROFESSOR-C Bird Ruiz INDUSTRIAL PSYCHOLOGY PROFESSOR Work Phone: [facility] 03-23-2023 14:06-0400 Body mass index (BMI) [Ratio] 43.2 kg/m2 INDUSTRIAL PSYCHOLOGY PROFESSOR-C Bird Ruiz INDUSTRIAL PSYCHOLOGY PROFESSOR Work Phone: [facility] 03-23-2023 14:06-0400 Body weight 110.67 kg INDUSTRIAL PSYCHOLOGY PROFESSOR-C Bird Ruiz INDUSTRIAL PSYCHOLOGY PROFESSOR Work Phone: [facility] 03-23-2023 14:06-0400 Diastolic blood pressure 69 mm[Hg] INDUSTRIAL PSYCHOLOGY PROFESSOR-C Bird Ruiz INDUSTRIAL PSYCHOLOGY PROFESSOR Work Phone: [facility] 03-23-2023 14:06-0400 Systolic blood pressure 110 mm[Hg] INDUSTRIAL PSYCHOLOGY PROFESSOR-C Bird Ruiz INDUSTRIAL PSYCHOLOGY PROFESSOR Work Phone: [facility] 02-23-2023 13:14-0400 Body mass index (BMI) [Ratio] 43 kg/m2 INDUSTRIAL PSYCHOLOGY PROFESSOR-C Bird Ruiz INDUSTRIAL PSYCHOLOGY PROFESSOR Work Phone: [facility] 02-23-2023 13:14-0400 Body weight 110.22 kg INDUSTRIAL PSYCHOLOGY PROFESSOR-C Bird Ruiz INDUSTRIAL PSYCHOLOGY PROFESSOR Work Phone: [facility] 02-23-2023 13:14-0400 Diastolic blood pressure 80 mm[Hg] INDUSTRIAL PSYCHOLOGY PROFESSOR-C Bird Ruiz INDUSTRIAL PSYCHOLOGY PROFESSOR Work Phone: [facility] 02-23-2023 13:14-0400 Systolic blood pressure 112 mm[Hg] INDUSTRIAL PSYCHOLOGY PROFESSOR-C Bird Ruiz INDUSTRIAL PSYCHOLOGY PROFESSOR Work Phone: [facility] 02-13-2023 08:32-0400 Body mass index (BMI) [Ratio] 43.7 kg/m2 INDUSTRIAL PSYCHOLOGY PROFESSOR-C Bird Ruiz INDUSTRIAL PSYCHOLOGY PROFESSOR Work Phone: [facility] 02-13-2023 08:32-0400 Body temperature 98.4 [degF] INDUSTRIAL PSYCHOLOGY PROFESSOR-C Bird Ruiz INDUSTRIAL PSYCHOLOGY PROFESSOR Work Phone: [facility] 02-13-2023 08:32-0400 Body weight 112.09 kg INDUSTRIAL PSYCHOLOGY PROFESSOR-C Bird Ruiz INDUSTRIAL PSYCHOLOGY PROFESSOR Work Phone: [facility] 02-13-2023 08:32-0400 Diastolic blood pressure 84 mm[Hg] INDUSTRIAL PSYCHOLOGY PROFESSOR-C Bird Ruiz INDUSTRIAL PSYCHOLOGY PROFESSOR Work Phone: [facility] 02-13-2023 08:32-0400 Heart rate 80 /min INDUSTRIAL PSYCHOLOGY PROFESSOR-C Bird Ruiz INDUSTRIAL PSYCHOLOGY PROFESSOR Work Phone: [facility] 02-13-2023 08:32-0400 Respiratory rate 16 /min INDUSTRIAL PSYCHOLOGY PROFESSOR-C Bird Ruiz INDUSTRIAL PSYCHOLOGY PROFESSOR Work Phone: [facility] 02-13-2023 08:32-0400 SaO2% (BldA) [Mass fraction] 97 % INDUSTRIAL PSYCHOLOGY PROFESSOR-C Bird Ruiz INDUSTRIAL PSYCHOLOGY PROFESSOR Work Phone: [facility] 02-13-2023 08:32-0400 Systolic blood pressure 112 mm[Hg] INDUSTRIAL PSYCHOLOGY PROFESSOR-C Bird Ruiz INDUSTRIAL PSYCHOLOGY PROFESSOR Work Phone: [facility] 01-25-2023 10:49-0400 Body height 160.02 cm INDUSTRIAL PSYCHOLOGY PROFESSOR-C Bird Ruiz INDUSTRIAL PSYCHOLOGY PROFESSOR Work Phone: [facility] 01-25-2023 10:48-0400 Body mass index (BMI) [Ratio] 42.5 kg/m2 INDUSTRIAL PSYCHOLOGY PROFESSOR-C Bird Ruiz INDUSTRIAL PSYCHOLOGY PROFESSOR Work Phone: [facility] 01-25-2023 10:48-0400 Body weight 109.08 kg INDUSTRIAL PSYCHOLOGY PROFESSOR-C Bird Ruiz INDUSTRIAL PSYCHOLOGY PROFESSOR Work Phone: [facility] 01-25-2023 10:48-0400 Diastolic blood pressure 80 mm[Hg] INDUSTRIAL PSYCHOLOGY PROFESSOR-C Bird Riuz INDUSTRIAL PSYCHOLOGY PROFESSOR Work Phone: [facility] 01-25-2023 10:48-0400 Systolic blood pressure 129 mm[Hg] INDUSTRIAL PSYCHOLOGY PROFESSOR-C Bird Ruiz INDUSTRIAL PSYCHOLOGY PROFESSOR Work Phone: [facility] Encounters Encounter Date Encounter Type Care Provider Facility Start: 01-22-2025 End: 01-22-2025 ambulatory Bird Ruiz INDUSTRIAL PSYCHOLOGY PROFESSOR-C Work Phone: -[facility][1] Start: 01-22-2025 End: 01-22-[address] Fadumo Zelaya MD -[facility][1] Work Phone: Start: 01-22-[address] Fadumo Zelaya MD -[facility] Work Phone: Start: 01-22-2025 ambulatory Fadumo Anna lity:[facility] Start: 01-16-2025 End: 01-16-[address] Fadumo Zelaya MD -[facility][1] Work Phone: Start: 01-16-2025 End: 01-16-2025 ambulatory Bird Ruiz INDUSTRIAL PSYCHOLOGY PROFESSOR-C Work Phone: -[facility][1] Start: 01-13-2025 Non-patient / Non-visit Dr. Evelin Cardona DO -[facility] Start: 01-13-2025 End: 01-13-2025 ambulatory Bird Ruiz INDUSTRIAL PSYCHOLOGY PROFESSOR-C Work Phone: -[facility] Start: 01-13-2025 End: 01-13-[address] Evelin Cardona DO -[facility] Work Phone: Start: 01-08-2025 ambulatory Fadumo Thomasoni lity:[facility] Start: 01-08-2025 Non-patient / Non-visit Dr. Evelin Cardona DO -[facility] Start: 01-08-2025 End: 01-08-2025 Patient encounter procedure Anisa Blackmon INDUSTRIAL PSYCHOLOGY PROFESSOR-C -[facility][1] Work Phone: Start: 01-08-2025 End: 01-08-2025 ambulatory Bird Ruiz INDUSTRIAL PSYCHOLOGY PROFESSOR-C Work Phone: -[facility][1] Start: 01-08-2025 End: 01-08-[address] Fadumo Zelaya MD -Ultrasound [facility] Work Phone: Start: 01-08-2025 End: 01-08-2025 ambulatory Bird Ruiz INDUSTRIAL PSYCHOLOGY PROFESSOR-C Work Phone: -Ultrasound [facility] Start: 01-01-2025 End: 01-01-2025 ambulatory Bird Ruiz INDUSTRIAL PSYCHOLOGY PROFESSOR-C Work Phone: -Ultrasound [facility] Start: 01-01-2025 End: 01-01-2025 Patient encounter procedure Marietta Ghosh CNM -Ultrasound [facility] Work Phone: Start: 01-01-2025 End: 01-01-2025 ambulatory Fadumo Zelaya Facility:[facility] Start: 12-26-2024 End: 12-26-[address] Fadumo Zelaya MD -[facility][1] Work Phone: Start: 12-26-2024 End: 12-26-2024 ambulatory Bird Ruiz INDUSTRIAL PSYCHOLOGY PROFESSOR-C Work Phone: -[facility][1] Start: 12-26-2024 End: 12-26-2024 ambulatory Fadumo Zelaya Facility:[facility] Start: 12-17-2024 End: 12-17-2024 ambulatory Bird Ruiz INDUSTRIAL PSYCHOLOGY PROFESSOR-C Work Phone: [facility] Work Phone: Start: 12-17-2024 End: 12-17-2024 Patient encounter procedure Marietta Ghosh CNM -[facility] Work Phone: Start: 12-16-2024 End: 12-16-[address] Sha Vaughan MD -[facility] Work Phone: Start: 12-16-2024 End: 12-17-2024 ambulatory Bird Ruiz INDUSTRIAL PSYCHOLOGY PROFESSOR-C Work Phone: [facility] Work Phone: Start: 12-11-2024 End: 12-11-2024 Patient encounter procedure Anisa KEITAC -[facility] Work Phone: Start: 12-11-2024 End: 12-11-2024 ambulatory Bird Ruiz NP-C Work Phone: [facility] Work Phone: Start: 12-01-2024 ambulatory Bird Ruiz NP [facility] ity:[facility] Start: 11-13-2024 End: 11-13-2024 ambulatory BIRD RUIZ [facility] Start: 11-11-2024 End: 11-11-2024 Patient encounter procedure [facility] Work Phone: Start: 11-11-2024 End: 11-11-2024 ambulatory Bird Ruiz INDUSTRIAL PSYCHOLOGY PROFESSOR-C Work Phone: [facility] Work Phone: Start: 11-11-2024 End: 11-11-2024 ambulatory Bird Ruiz NP Facility:[facility] Start: 10-31-2024 End: 10-31-2024 Patient encounter procedure [facility]osh [facility] Work Phone: Start: 10-31-2024 End: 10-31-2024 ambulatory Bird Ruiz NP Facility:[facility] Start: 10-02-2024 End: 10-02-2024 Patient encounter procedure Marietta Ghohs CNM -[facility][1] Work Phone: Start: 10-02-2024 End: 10-02-2024 ambulatory Bird Ruiz INDUSTRIAL PSYCHOLOGY PROFESSOR Facility:[facility] Start: 09-26-2024 ambulatory Bird Ruiz NP Facil ity:[facility] Start: 09-23-2024 End: 09-23-2024 ambulatory BIRD CERVANTES [facility] Start: 09-16-2024 End: 09-16-2024 ambulatory FADUMO ZELAYA [facility] Start: 08-27-2024 End: 08-27-[address] Fadumo Zelaya MD -[facility][1] Work Phone: Start: 08-27-2024 End: 08-27-2024 ambulatory Bird Ruiz NP Facility:[facility] Start: 08-01-2024 End: 08-01-[address] Fadumo Zelaya MD -[facility][1] Work Phone: Start: 08-01-2024 End: 08-01-2024 ambulatory Bird Ruiz NP Facility:[facility] Start: 07-21-2024 End: 07-21-2024 ambulatory BIRD CERVANTES [facility] Start: 07-21-2024 End: 07-21-2024 Patient encounter procedure Marietta FLOWERS -[facility][1] Start: 07-21-2024 End: 07-21-2024 ambulatory Marietta Ghosh Facility:[facility] Start: 07-03-2024 End: 07-03-2024 ambulatory Bird Ruiz NP Facility:[facility] Start: 07-03-2024 End: 07-03-2024 ambulatory Marietta Ghosh Facility:[facility] Start: 06-13-2024 End: 06-13-2024 ambulatory BIRD CERVANTES [facility] Start: 06-13-2024 End: 06-13-2024 Encounter for general adult medical examination with abnormal findings BIRD CERVANTES [facility] Start: 03-11-2024 End: 03-11-2024 ambulatory Bird Ruiz INDUSTRIAL PSYCHOLOGY PROFESSOR Facility:[facility] Start: 08-22-2023 Non-patient / Non-visit INDUSTRIAL PSYCHOLOGY PROFESSOR-C Bird Ruiz INDUSTRIAL PSYCHOLOGY PROFESSOR Work Phone: [facility] Start: 08-21-2023 Non-patient / Non-visit INDUSTRIAL PSYCHOLOGY PROFESSOR-C Bird Ruiz INDUSTRIAL PSYCHOLOGY PROFESSOR Work Phone: [facility] Start: 08-20-2023 Non-patient / Non-visit INDUSTRIAL PSYCHOLOGY PROFESSOR-C Bird Ruiz INDUSTRIAL PSYCHOLOGY PROFESSOR Work Phone: [facility] Start: 08-20-2023 End: 08-22-2023 Evaluation and management of inpatient INDUSTRIAL PSYCHOLOGY PROFESSOR-C Bird Ruiz INDUSTRIAL PSYCHOLOGY PROFESSOR Work Phone: [facility] Work Phone: Start: 08-17-2023 End: 08-17-2023 ambulatory INDUSTRIAL PSYCHOLOGY PROFESSOR-C Bird Ruiz INDUSTRIAL PSYCHOLOGY PROFESSOR Work Phone: [facility] Work Phone: Start: 08-17-2023 End: 08-17-2023 Patient encounter procedure INDUSTRIAL PSYCHOLOGY PROFESSOR-C Bird Ruiz INDUSTRIAL PSYCHOLOGY PROFESSOR Work Phone: [facility] Work Phone: Start: 08-14-2023 End: 08-14-2023 Patient encounter procedure INDUSTRIAL PSYCHOLOGY PROFESSOR-C Bird Ruiz INDUSTRIAL PSYCHOLOGY PROFESSOR Work Phone: [facility] Work Phone: Start: 08-10-2023 End: 08-10-2023 Patient encounter procedure INDUSTRIAL PSYCHOLOGY PROFESSOR-C Bird Ruiz INDUSTRIAL PSYCHOLOGY PROFESSOR Work Phone: [facility] Work Phone: Start: 08-07-2023 End: 08-07-2023 ambulatory INDUSTRIAL PSYCHOLOGY PROFESSOR-C Bird Ruiz INDUSTRIAL PSYCHOLOGY PROFESSOR Work Phone: [facility] Work Phone: Start: 08-07-2023 End: 08-07-2023 Patient encounter procedure INDUSTRIAL PSYCHOLOGY PROFESSOR-C Bird Ruiz INDUSTRIAL PSYCHOLOGY PROFESSOR Work Phone: [facility]-Laboratory, Specimen Work Phone: Start: 08-07-2023 End: 08-07-2023 Patient encounter procedure INDUSTRIAL PSYCHOLOGY PROFESSOR-C Bird Ruiz INDUSTRIAL PSYCHOLOGY PROFESSOR Work Phone: [facility] Work Phone: Start: 08-03-2023 End: 08-03-2023 ambulatory INDUSTRIAL PSYCHOLOGY PROFESSOR-C Bird Ruiz INDUSTRIAL PSYCHOLOGY PROFESSOR Work Phone: [facility] Work Phone: Start: 08-03-2023 End: 08-03-2023 Patient encounter procedure INDUSTRIAL PSYCHOLOGY PROFESSOR-C Bird Ruiz INDUSTRIAL PSYCHOLOGY PROFESSOR Work Phone: [facility] Work Phone: Start: 07-31-2023 End: 07-31-2023 Patient encounter procedure INDUSTRIAL PSYCHOLOGY PROFESSOR-C Bird Ruiz INDUSTRIAL PSYCHOLOGY PROFESSOR Work Phone: [facility] Work Phone: Start: 07-27-2023 End: 07-27-2023 Patient encounter procedure INDUSTRIAL PSYCHOLOGY PROFESSOR-C Bird Ruiz INDUSTRIAL PSYCHOLOGY PROFESSOR Work Phone: [facility] Work Phone: Start: 07-25-2023 Non-patient / Non-visit INDUSTRIAL PSYCHOLOGY PROFESSOR-C Bird Ruiz INDUSTRIAL PSYCHOLOGY PROFESSOR Work Phone: [facility] Start: 07-25-2023 End: 07-25-2023 ambulatory INDUSTRIAL PSYCHOLOGY PROFESSOR-C Bird Ruiz INDUSTRIAL PSYCHOLOGY PROFESSOR Work Phone: [facility] Work Phone: Start: 07-25-2023 End: 07-25-2023 Patient encounter procedure INDUSTRIAL PSYCHOLOGY PROFESSOR-C Bird Ruiz INDUSTRIAL PSYCHOLOGY PROFESSOR [facility] Work Phone: Start: 07-24-2023 End: 07-24-2023 ambulatory INDUSTRIAL PSYCHOLOGY PROFESSOR-C Bird Ruiz INDUSTRIAL PSYCHOLOGY PROFESSOR Work Phone: [facility] Work Phone: Start: 07-24-2023 End: 07-24-2023 Patient encounter procedure INDUSTRIAL PSYCHOLOGY PROFESSOR-C Bird Ruiz INDUSTRIAL PSYCHOLOGY PROFESSOR Work Phone: [facility]-Laboratory, Specimen Work Phone: Start: 07-24-2023 End: 07-24-2023 Patient encounter procedure INDUSTRIAL PSYCHOLOGY PROFESSOR-C Bird Ruiz INDUSTRIAL PSYCHOLOGY PROFESSOR Work Phone: [facility] Work Phone: Start: 07-17-2023 End: 07-17-2023 Patient encounter procedure INDUSTRIAL PSYCHOLOGY PROFESSOR-C Bird Ruiz INDUSTRIAL PSYCHOLOGY PROFESSOR Work Phone: [facility] Work Phone: Start: 07-13-2023 End: 07-13-2023 Patient encounter procedure INDUSTRIAL PSYCHOLOGY PROFESSOR-C Bird Ruiz INDUSTRIAL PSYCHOLOGY PROFESSOR Work Phone: [facility] Work Phone: Start: 07-06-2023 End: 07-06-2023 ambulatory INDUSTRIAL PSYCHOLOGY PROFESSOR-C Bird Ruiz INDUSTRIAL PSYCHOLOGY PROFESSOR Work Phone: [facility] Work Phone: Start: 07-06-2023 End: 07-06-2023 Patient encounter procedure INDUSTRIAL PSYCHOLOGY PROFESSOR-C Bird Ruiz INDUSTRIAL PSYCHOLOGY PROFESSOR Work Phone: [facility] Work Phone: Start: 06-22-2023 End: 06-22-2023 Patient encounter procedure INDUSTRIAL PSYCHOLOGY PROFESSOR-C Bird Ruiz INDUSTRIAL PSYCHOLOGY PROFESSOR Work Phone: [facility] Work Phone: Start: 06-20-2023 End: 06-20-2023 ambulatory INDUSTRIAL PSYCHOLOGY PROFESSOR-C Bird Ruiz INDUSTRIAL PSYCHOLOGY PROFESSOR Work Phone: [facility] Work Phone: Start: 06-20-2023 End: 06-20-2023 Patient encounter procedure INDUSTRIAL PSYCHOLOGY PROFESSOR-Holden Ruiz INDUSTRIAL PSYCHOLOGY PROFESSOR Work Phone: [facility] Work Phone: Start: 06-14-2023 End: 06-14-2023 ambulatory INDUSTRIAL PSYCHOLOGY PROFESSOR-C Bird Ruiz INDUSTRIAL PSYCHOLOGY PROFESSOR Work Phone: [facility] Work Phone: Start: 06-14-2023 End: 06-14-2023 Patient encounter procedure INDUSTRIAL PSYCHOLOGY PROFESSOR-C Bird Ruiz INDUSTRIAL PSYCHOLOGY PROFESSOR Work Phone: [facility]-Ultrasound, [facility] Work Phone: Start: 06-06-2023 End: 06-06-2023 Patient encounter procedure INDUSTRIAL PSYCHOLOGY PROFESSOR-C Bird Ruiz INDUSTRIAL PSYCHOLOGY PROFESSOR Work Phone: [facility] Work Phone: Start: 05-18-2023 End: 05-18-2023 Patient encounter procedure INDUSTRIAL PSYCHOLOGY PROFESSOR-C Bird Ruiz INDUSTRIAL PSYCHOLOGY PROFESSOR Work Phone: [facility] Work Phone: Start: 05-11-2023 End: 05-11-2023 Patient encounter procedure INDUSTRIAL PSYCHOLOGY PROFESSOR-Holden Ruiz INDUSTRIAL PSYCHOLOGY PROFESSOR Work Phone: [facility] Work Phone: Start: 04-12-2023 End: 04-12-2023 ambulatory INDUSTRIAL PSYCHOLOGY PROFESSOR-C Bird Ruiz INDUSTRIAL PSYCHOLOGY PROFESSOR Work Phone: [facility] Work Phone: Start: 04-12-2023 End: 04-12-2023 Patient encounter procedure INDUSTRIAL PSYCHOLOGY PROFESSOR-C Bird Ruiz INDUSTRIAL PSYCHOLOGY PROFESSOR Work Phone: [facility]Outpatient [facility] Ultrasound Work Phone: Start: 03-23-2023 End: 03-23-2023 Patient encounter procedure INDUSTRIAL PSYCHOLOGY PROFESSOR-C Bird Ruiz INDUSTRIAL PSYCHOLOGY PROFESSOR Work Phone: [facility]-Laboratory, Specimen Work Phone: Start: 03-23-2023 End: 03-23-2023 Patient encounter procedure INDUSTRIAL PSYCHOLOGY PROFESSOR-C Bird Ruiz INDUSTRIAL PSYCHOLOGY PROFESSOR Work Phone: [facility] Work Phone: Start: 02-23-2023 End: 02-23-2023 Patient encounter procedure INDUSTRIAL PSYCHOLOGY PROFESSOR-C Bird Ruiz INDUSTRIAL PSYCHOLOGY PROFESSOR Work Phone: [facility] Work Phone: Start: 02-13-2023 End: 02-13-2023 Patient encounter procedure INDUSTRIAL PSYCHOLOGY PROFESSOR-C Bird Ruiz INDUSTRIAL PSYCHOLOGY PROFESSOR Work Phone: [facility] Work Phone: Start: 02-08-2023 End: 02-08-2023 ambulatory INDUSTRIAL PSYCHOLOGY PROFESSOR-C Bird Ruiz INDUSTRIAL PSYCHOLOGY PROFESSOR Work Phone: [facility] Work Phone: Start: 02-08-2023 End: 02-08-2023 Patient encounter procedure INDUSTRIAL PSYCHOLOGY PROFESSOR-C Bird Ruiz INDUSTRIAL PSYCHOLOGY PROFESSOR Work Phone: [facility]Laboratory, [facility] Start: 01-25-2023 End: 01-25-2023 ambulatory INDUSTRIAL PSYCHOLOGY PROFESSOR-C Bird Ruiz INDUSTRIAL PSYCHOLOGY PROFESSOR Work Phone: [facility] Work Phone: Start: 01-25-2023 End: 01-25-2023 Patient encounter procedure INDUSTRIAL PSYCHOLOGY PROFESSOR-C Bird Ruiz INDUSTRIAL PSYCHOLOGY PROFESSOR Work Phone: [facility] Ultrasound Work Phone: Start: 01-25-2023 End: 01-25-2023 Patient encounter procedure INDUSTRIAL PSYCHOLOGY PROFESSOR-C Bird Ruiz INDUSTRIAL PSYCHOLOGY PROFESSOR Work Phone: [facility] Work Phone: Start: 08-14-2017 Ambulatory Sukumar Joya Facil ity:[facility] Start: 07-31-2017 Ambulatory Sukumar Joya Facil ity:[facility] Start: 06-05-2017 Ambulatory CAROLYNE Lowe ty:[facility]I Start: 04-02-2017 Ambulatory Michelle Munroe Armando Facilit y:[facility] Procedures Date Procedure Procedure Detail Performing Clinician Start: 01-16-2025 Ultrasound scan for growth Bird Ruiz INDUSTRIAL PSYCHOLOGY PROFESSOR-[employer] Work Phone: Start: 01-16-2025 Beta-hemolytic Streptococcus culture Bird [employer] Work Phone: Start: 01-13-2025 Measurement of pH in vaginal fluid specimen using nitrazine yellow for detection of rupture of amniotic membrane Bird Ruiz INDUSTRIAL PSYCHOLOGY PROFESSOR-[employer] Work Phone: Comment on above: Amniotic fluid not p resent indicates No Rupture of FetalMembranes at time of specimen collection. Start: 01-08-2025 Estimated creatinine clearance Bird Donnellyler INDUSTRIAL PSYCHOLOGY PROFESSOR-[employer] Work Phone: Start: 01-08-2025 Ultrasonography for biophysical profile without non-stress testing Bird Joseph INDUSTRIAL PSYCHOLOGY PROFESSOR-C Work Phone: Start: 01-01-2025 Ultrasonography for biophysical profile without non-stress testing Bird Donnellyler INDUSTRIAL PSYCHOLOGY PROFESSOR-C Work Phone: Start: 12-17-2024 Ultrasound scan for growth Bird Ruiz INDUSTRIAL PSYCHOLOGY PROFESSOR-[facility] Work Phone: Start: 11-11-2024 Serologic test for syphilis Bird Donnellyler [employer] Work Phone: Start: 07-21-2024 Hepatitis B surface antigen measurement Bird Donnellyler INDUSTRIAL PSYCHOLOGY PROFESSOR-[facility] Work Phone: Start: 07-21-2024 Hepatitis C antibody measurement Bird Joseph INDUSTRIAL PSYCHOLOGY PROFESSOR-[employer] Work Phone: Comment on above: Non Reactive: < 0.8 Equivocal: >/= 0.8 to < 1.0 Reactive: >/= 1.0The CDC requires that a reactive/equivocal HCV antibody result be sent out for confirmation. HCV Quant by PCR testing. Start: 07-21-2024 Measurement of 3,4-methylenedioxymethamph etamine in urine Bird Ruiz INDUSTRIAL PSYCHOLOGY PROFESSOR-C Work Phone: Start: 07-21-2024 Measurement of renal function Bird Ruiz INDUSTRIAL PSYCHOLOGY PROFESSOR-C Work Phone: Comment on above: GFR Calc Start: 07-21-2024 Methadone measuremen t, urine Bird Donnellyler INDUSTRIAL PSYCHOLOGY PROFESSOR-C Work Phone: Start: 07-21-2024 Procedure Bird castañedaer INDUSTRIAL PSYCHOLOGY PROFESSOR-C Work Phone: Start: 07-21-2024 Rubella IgG measurement Bird Ruiz INDUSTRIAL PSYCHOLOGY PROFESSOR-C Work Phone: Comment on above: Antibody Results Int erpretation of Immune Status Non Reactive Presumed Non-Immune Equivocal Equivocal Reactive Presumed Immune Start: 07-21-2024 Urine barbiturate measurement Bird Ruiz INDUSTRIAL PSYCHOLOGY PROFESSOR-C Work Phone: Start: 08-17-2023 Ultrasonography for biophysical profile without non-stress testing INDUSTRIAL PSYCHOLOGY PROFESSOR-C Bird Donnellyler INDUSTRIAL PSYCHOLOGY PROFESSOR Work Phone: Start: 08-07-2023 Bacterial nucleic ac id assay INDUSTRIAL PSYCHOLOGY PROFESSOR-C Bird Ruiz INDUSTRIAL PSYCHOLOGY PROFESSOR Work Phone: Start: 08-07-2023 Chlamydia trachomati s (PCR) INDUSTRIAL PSYCHOLOGY PROFESSOR-C Bird Donnellyler INDUSTRIAL PSYCHOLOGY PROFESSOR Work Phone: Start: 08-03-2023 Group B Streptococcu s Culture INDUSTRIAL PSYCHOLOGY PROFESSOR-C Bird Ruiz INDUSTRIAL PSYCHOLOGY PROFESSOR Work Phone: Start: 08-03-2023 Ultrasound scan for growth INDUSTRIAL PSYCHOLOGY PROFESSOR-C Bird Donnellyler INDUSTRIAL PSYCHOLOGY PROFESSOR Work Phone: Start: 07-24-2023 Urine culture INDUSTRIAL PSYCHOLOGY PROFESSOR-C Charanjit Donnellyler INDUSTRIAL PSYCHOLOGY PROFESSOR Work Phone: Start: 07-06-2023 Ultrasonography for biophysical profile without non-stress testing INDUSTRIAL PSYCHOLOGY PROFESSOR-C Bird Donnellyler INDUSTRIAL PSYCHOLOGY PROFESSOR Work Phone: Start: 06-20-2023 US scan of gallbladder INDUSTRIAL PSYCHOLOGY PROFESSOR-C Bird Ruiz INDUSTRIAL PSYCHOLOGY PROFESSOR Work Phone: Start: 06-14-2023 US urinary tract INDUSTRIAL PSYCHOLOGY PROFESSOR-C Bartolo george Joseph INDUSTRIAL PSYCHOLOGY PROFESSOR Work Phone: Start: 04-12-2023 Ultrasonography in f irst trimester INDUSTRIAL PSYCHOLOGY PROFESSOR-C Bird Ruiz INDUSTRIAL PSYCHOLOGY PROFESSOR Work Phone: Start: 01-25-2023 Urine culture INDUSTRIAL PSYCHOLOGY PROFESSOR-C Charanjit waters Joseph INDUSTRIAL PSYCHOLOGY PROFESSOR Work Phone: Start: 01-25-2023 Transvaginal obstetr ic ultrasonography INDUSTRIAL PSYCHOLOGY PROFESSOR-C Bird Ruiz INDUSTRIAL PSYCHOLOGY PROFESSOR Work Phone: H/O: section Previous c esarean section Bird Ruiz INDUSTRIAL PSYCHOLOGY PROFESSOR-C Work Phone: H/O: section Previous c esarean section Dr. Fadumo Zelaya MD H/O: section Previous c esarean section Dr. Fadumo Zelaya MD H/O: section Previous c esarean section Marietta Ghosh CNM H/O: section Previous c esarean section Marietta Ghosh CNM H/O: section Previous c esarean section Marietta Ghosh CNM H/O: section Previous c esarean section Anisa Blackmon INDUSTRIAL PSYCHOLOGY PROFESSOR-C H/O: section Previous c esarean section Dr. Fadumo Zelaya MD H/O: section Previous c esarean section Anisa Blackmon INDUSTRIAL PSYCHOLOGY PROFESSOR-C H/O: section Previous c esarean section Dr. Evelin Cardona DO H/O: section Previous c esarean section Dr. Evelin Cardona DO H/O: section Previous c esarean section Dr. Fadumo Zelaya MD H/O: section Previous c esarean section Dr. Fadumo Zelaya MD Plan of Treatment Date Care Activity Detail Author Start: 01-22-2025 Biophysical profile panel US [facility] Start: 01-22-2025 Ultrasonography for biophysical profile without non-stress testing OB Biophysical Prof W/O NST [facility] Start: 01-13-2025 Nonstress test [facility] Start: 01-13-2025 Obstetric monitoring [facility] Start: 01-13-2025 [facility] Start: 01-13-2025 Vital signs measurements [facility] Start: 01-08-2025 Nonstress test [facility] Start: 01-08-2025 Obstetric monitoring [facility] Start: 01-08-2025 [facility] Start: 01-08-2025 Vital signs measurements [facility] Start: 01-08-2025 Biophysical profile panel US [facility] Start: 01-08-2025 Ultrasonography for biophysical profile without non-stress testing OB Biophysical Prof W/O NST [facility] Start: 01-08-2025 Patient discharge [facility] Start: 12-26-2024 CBC W Auto Differential panel - Blood [facility] Start: 12-26-2024 Comprehensive metabolic 2000 panel - Serum or Plasma [facility] Start: 11-11-2024 CBC W Auto Differential panel - Blood [facility] Start: 11-11-2024 Measurement of glucose 2 hours after glucose challenge for glucose tolerance test [facility] Start: 11-11-2024 Serologic test for syphilis [facility] Start: 11-11-2024 [facility] Start: 11-11-2024 Patient referral [facility] Work Phone: Start: 08-22-2023 Patient discharge [facility] Start: 08-21-2023 [facility] Start: 08-21-2023 Application of abdominal corset [facility] Start: 08-20-2023 Administration of medication [facility] Start: 08-20-2023 Ambulation therapy management [facility] Start: 08-20-2023 Application of device [facility] Start: 08-20-2023 End: 08-20-2023 Application of intermittent pneumatic compression device [facility] Start: 08-20-2023 Assessment of risk of venous thromboembolism [facility] Start: 08-20-2023 Catheterization of vein [facility] Start: 08-20-2023 Deep breathing and coughing exercises [facility] Start: 08-20-2023 Exercises [facility] Start: 08-20-2023 Measuring intake and output [facility] Start: 08-20-2023 Notification of physician [facility] Start: 08-20-2023 Procedure discontinued [facility] Start: 08-20-2023 Provision of activity privileges [facility] Start: 08-20-2023 Skin care [facility] Start: 08-20-2023 Vital signs measurements [facility] Start: 08-20-2023 Wound care [facility] Start: 08-20-2023 [facility] Start: 08-20-2023 Application of abdominal corset [facility] Start: 08-20-2023 section Primary C Section (Not Applicable) [facility] Start: 08-20-2023 Admission procedure [facility] Start: 08-20-2023 Consultation [facility] Start: 08-17-2023 biophysical profile w/o non-stress testing BIOPHYS PROFIL W/O NST [facility] Start: 07-25-2023 Nonstress test [facility] Start: 07-25-2023 Obstetric monitoring [facility] Start: 07-25-2023 Vital signs measurements [facility] Start: 07-25-2023 [facility] Start: 07-25-2023 Patient discharge [facility] Start: 07-24-2023 [facility] Start: 07-24-2023 Bacteria identified in Urine by Culture [facility] Alanine aminotransfe rase [Enzymatic activity/volume] in Serum or Plasma [facility] Albumin [Mass/volume ] in Serum or Plasma [facility] Alkaline phosphatase [Enzymatic activity/volume] in Serum or Plasma [facility] Anion gap in Serum o r Plasma [facility] Bilirubin, total measurement [facility] BUN/Creatinine ratio [facility] Calcium [Mass/volume ] in Serum or Plasma [facility] Carbon dioxide, tota l [Moles/volume] in Central venous blood [facility] CBC W Auto Different ial panel - Blood [facility] CBC W Auto Different ial panel - Blood [facility] Comprehensive metabo lic 2000 panel - Serum or Plasma [facility] Creatinine [Mass/vol ume] in Serum or Plasma [facility] Erythrocyte mean corpuscular volume determination [facility] Erythrocyte mean corpuscular volume determination [facility] Biophysical pr ofile panel US [facility] Glucose [Mass/volume ] in Serum or Plasma [facility] Glucose [Mass/volume ] in Serum or Plasma --1 hour post 50 g glucose PO [facility] Hematocrit [Volume Fraction] of Blood [facility] Hematocrit [Volume Fraction] of Blood [facility] Hemoglobin [Mass/vol ume] in Blood [facility] Hemoglobin [Mass/vol ume] in Blood [facility] Hepatitis B surface antigen measurement [facility] Hepatitis C antibody measurement [facility] HIV 1+2 Ab+HIV1 p24 Ag [Presence] in Serum or Plasma by Immunoassay [facility] Leukocytes [#/volume ] in Blood [facility] Leukocytes [#/volume ] in Blood [facility] Mean corpuscular hem oglobin concentration determination [facility] Mean corpuscular hem oglobin concentration determination [facility] Mean corpuscular hem oglobin determination [facility] Mean corpuscular hem oglobin determination [facility] Measurement of renal function [facility] Neutrophil count [facility] Neutrophil count [facility] Neutrophil percent differential count [facility] Neutrophil percent differential count [facility] Patient Education Kick Counts ED False Labor OB Triage: Return to Hospital or Notify Physician if you Experience: [facility] Work Phone: Patient referral [facility] Work Phone: Platelets [#/volume] in Blood [facility] Platelets [#/volume] in Blood [facility] Potassium measurement [facility] Protein/Creatinine [ Ratio] in Urine [facility] Protein/Creatinine [ Ratio] in Urine [facility] Red blood cell count [facility] Red blood cell count [facility] Red cell distributio n width determination [facility] Red cell distributio n width determination [facility] Rubella IgG measurement [facility] Serum chloride measurement [facility] Sodium measurement [facility] Streptococcus agalac tiae [Presence] in Unspecified specimen by Organism specific culture [facility] Total protein measurement [facility] Treponema sp Ab [Pre sence] in Serum [facility] Ultrasound scan for growth [facility] Ultrasound scan for growth [facility] Ultrasound scan for growth [facility] Urea nitrogen [Mass/ volume] in Serum or Plasma [facility] Immunizations Immunization Date Immunization Notes Care Provider Shikha pérez 12-11-2024 tetanus toxoid, redu thomas diphtheria toxoid, and acellular pertussis vaccine, adsorbed Bird Ruiz INDUSTRIAL PSYCHOLOGY PROFESSOR-C Work Phone: [facility] 06-06-2023 influenza, injectabl e, quadrivalent, preservative free INDUSTRIAL PSYCHOLOGY PROFESSOR-C Bird Ruiz INDUSTRIAL PSYCHOLOGY PROFESSOR Work Phone: [facility] 06-06-2023 tetanus toxoid, redu thomas diphtheria toxoid, and acellular pertussis vaccine, adsorbed INDUSTRIAL PSYCHOLOGY PROFESSOR-C Bird Ruiz INDUSTRIAL PSYCHOLOGY PROFESSOR Work Phone: [facility] 05-24-2020 tetanus toxoid, redu thomas diphtheria toxoid, and acellular pertussis vaccine, adsorbed INDUSTRIAL PSYCHOLOGY PROFESSOR-C Bird Ruiz INDUSTRIAL PSYCHOLOGY PROFESSOR Work Phone: [facility] 03-24-2020 influenza, injectable,quadrivalent , preservative free, 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 Bird Ruiz INDUSTRIAL PSYCHOLOGY PROFESSOR Work Phone: [facility] Payers Date Payer Category Payer Medicaid [id number] 2024 Private Health Insurance [id number] 2024 Self-pay [id number] 2016 Unknown [id number] 2000 Unknown [id number] 2000 Unknown [id number] 2000 Unknown [id number] 2..840.1.585858.3.579.2.479 2000 Unknown [id number] 2.16.840.1.956423.3.579.2.479 Unknown [id number] Unknown [facility] [id number] Unknown [facility] P[employer] . [id number] Unknown [id number] 2.16.840.1.971474.3.579.2.462 Unknown [id number] 2.16.840.1.798820.3.579.2.462 Unknown [id number] 2.16.840.1.488178.3.579.2.462 Unknown [id number] 2.16.840.1.867484.3.579.2.462 Unknown [id number] 2.16.840.1.341384.3.579.2.462 Unknown [id number] 2.16.840.1.929721.3.579.2.462 Unknown [id number] 2.16.840.1.453218.3.579.2.462 Unknown [id number] 2.16.840.1.067357.3.579.2.462 Unknown [id number] 2.16.840.1.063438.3.579.2.462 Unknown [id number] 2.16.840.1.599957.3.579.2.462 Unknown [id number] 2.16.840.1.366498.3.579.2.462 Unknown [id number] 2.16.840.1.460268.3.579.2.462 Unknown [id number] 2.16.840.1.782855.3.579.2.462 Unknown [id number] 2.16.840.1.452863.3.579.2.462 Unknown [id number] 2.16.840.1.012659.3.579.2.462 Unknown [id number] 2.16.840.1.422430.3.579.2.462 Unknown [id number] 2.16.840.1.527925.3.579.2.462 Unknown [id number] 2.16.840.1.041841.3.579.2.462 Unknown [id number] 2.16.840.1.273261.3.579.2.462 Unknown [id number] 2.16.840.1.241073.3.579.2.462 Unknown [id number] 2.16.840.1.995573.3.579.2.462 Unknown [id number] 2.16.840.1.462425.3.579.2.462 Unknown [id number] 2.16.840.1.698605.3.579.2.462 Unknown [id number] 2.16.840.1.424383.3.579.2.462 Unknown [id number] 2.16.840.1.879751.3.579.2.462 Unknown [id number] 2.16.840.1.507472.3.579.2.462 Social History Date Type Detail Facility Start: 01-25-2023 End: 08-20-2023 Tobacco smoking status ILIS Unknown if ever smoked [facility] Start: 04-23-2020 None [facility] Start: 2000 Sex Assigned At Female W [facility] Start: 06-30-2024 Tobacco smoking stat us ILIS Ex-smoker (finding) [facility] Medical Equipment Procedure Code Equipment Code Equipment Origin al Text Equipment Identifier Dates Blood Sugar Diagnostic (Blood Glucose Test) strip Start: 02-08-2023 Lancets Start: 02-08-2023 Blood Sugar Diagnostic (Blood Glucose Test) strip Start: 02-08-2023 Lancets Start: 02-08-2023 Pen Needle, Diab etic (Bd Ultra-Fine Shelley Pen Needle) 32 gauge x 5/32" needle Start: 02-13-2023 Blood Sugar Diagnostic (Blood Glucose Test) strip Start: 02-08-2023 Lancets Start: 02-08-2023 Pen Needle, Diab etic (Bd Ultra-Fine Shelely Pen Needle) 32 gauge x 5/32" needle Start: 02-13-2023 Blood Sugar Diagnostic (Blood Glucose Test) strip Start: 02-08-2023 Lancets Start: 02-08-2023 Pen Needle, Diab etic (Bd Ultra-Fine Shelley Pen Needle) 32 gauge x 5/32" needle Start: 02-13-2023 Blood Sugar Diagnostic (Blood Glucose Test) strip Start: 02-08-2023 Lancets Start: 02-08-2023 Pen Needle, Diab etic (Bd Ultra-Fine Shelley Pen Needle) 32 gauge x 5/32" needle Start: 02-13-2023 Blood Sugar Diagnostic (Blood Glucose Test) strip Start: 02-08-2023 Lancets Start: 02-08-2023 Pen Needle, Diab etic (Bd Ultra-Fine Shelley Pen Needle) 32 gauge x 5/32" needle Start: 02-13-2023 Blood Sugar Diagnostic (Blood Glucose Test) strip Start: 02-08-2023 Lancets Start: 02-08-2023 Pen Needle, Diab etic (Bd Ultra-Fine Shelley Pen Needle) 32 gauge x 5/32" needle Start: 02-13-2023 Blood Sugar Diagnostic (Blood Glucose Test) strip Start: 02-08-2023 Lancets Start: 02-08-2023 Pen Needle, Diab etic (Bd Ultra-Fine Shelley Pen Needle) 32 gauge x 5/32" needle Start: 02-13-2023 Blood Sugar Diagnostic (Blood Glucose Test) strip Start: 02-08-2023 Lancets Start: 02-08-2023 Pen Needle, Diab etic (Bd Ultra-Fine Shelley Pen Needle) 32 gauge x 5/32" needle Start: 02-13-2023 Blood Sugar Diagnostic (Blood Glucose Test) strip Start: 02-08-2023 Lancets Start: 02-08-2023 Pen Needle, Diab etic (Bd Ultra-Fine Shelley Pen Needle) 32 gauge x 5/32" needle Start: 02-13-2023 Blood Sugar Diagnostic (Blood Glucose Test) strip Start: 02-08-2023 Lancets Start: 02-08-2023 Pen Needle, Diab etic (Bd Ultra-Fine Shelley Pen Needle) 32 gauge x 5/32" needle Start: 02-13-2023 Blood Sugar Diagnostic (Blood Glucose Test) strip Start: 02-08-2023 End: 09-04-2023 Lancets misc Start: 02-08-2023 End: 09-04-2023 Pen Needle, Diab etic (Bd Ultra-Fine Shelley Pen Needle) 32 gauge x 5/32" needle Start: 02-13-2023 End: 09-04-2023 Blood Sugar Diagnostic (Blood Glucose Test) strip Start: 02-08-2023 End: 09-04-2023 Lancets misc Start: 02-08-2023 End: 09-04-2023 Pen Needle, Diab etic (Bd Ultra-Fine Shelley Pen Needle) 32 gauge x 5/32" needle Start: 02-13-2023 End: 09-04-2023 Blood Sugar Diagnostic (Blood Glucose Test) strip Start: 02-08-2023 End: 09-04-2023 Lancets misc Start: 02-08-2023 End: 09-04-2023 Pen Needle, Diab etic (Bd Ultra-Fine Shelley Pen Needle) 32 gauge x 5/32" needle Start: 02-13-2023 End: 09-04-2023 Blood Sugar Diagnostic (Blood Glucose Test) strip Start: 02-08-2023 End: 09-04-2023 Lancets misc Start: 02-08-2023 End: 09-04-2023 Pen Needle, Diab etic (Bd Ultra-Fine Shelley Pen Needle) 32 gauge x 5/32" needle Start: 02-13-2023 End: 09-04-2023 Blood Sugar Diagnostic (Blood Glucose Test) strip Start: 02-08-2023 End: 09-04-2023 Lancets misc Start: 02-08-2023 End: 09-04-2023 Pen Needle, Diab etic (Bd Ultra-Fine Shelley Pen Needle) 32 gauge x 5/32" needle Start: 02-13-2023 End: 09-04-2023 Blood Sugar Diagnostic (Blood Glucose Test) strip Start: 02-08-2023 End: 09-04-2023 Lancets misc Start: 02-08-2023 End: 09-04-2023 Pen Needle, Diab etic (Bd Ultra-Fine Shelley Pen Needle) 32 gauge x 5/32" needle Start: 02-13-2023 End: 09-04-2023 Blood Sugar Diagnostic (Blood Glucose Test) strip Start: 02-08-2023 End: 09-04-2023 Lancets misc Start: 02-08-2023 End: 09-04-2023 Pen Needle, Diab etic (Bd Ultra-Fine Shelley Pen Needle) 32 gauge x 5/32" needle Start: 02-13-2023 End: 09-04-2023 Blood Sugar Diagnostic (Blood Glucose Test) strip Start: 02-08-2023 End: 09-04-2023 Lancets misc Start: 02-08-2023 End: 09-04-2023 Pen Needle, Diab etic (Bd Ultra-Fine Shelley Pen Needle) 32 gauge x 5/32" needle Start: 02-13-2023 End: 09-04-2023 Blood Sugar Diagnostic (Blood Glucose Test) strip Start: 02-08-2023 End: 09-04-2023 Lancets misc Start: 02-08-2023 End: 09-04-2023 Pen Needle, Diab etic (Bd Ultra-Fine Shelley Pen Needle) 32 gauge x 5/32" needle Start: 02-13-2023 End: 09-04-2023 Blood Sugar Diagnostic (Blood Glucose Test) strip Start: 02-08-2023 End: 09-04-2023 Lancets misc Start: 02-08-2023 End: 09-04-2023 Pen Needle, Diab etic (Bd Ultra-Fine Shelley Pen Needle) 32 gauge x 5/32" needle Start: 02-13-2023 End: 09-04-2023 Blood Sugar Diagnostic (Blood Glucose Test) strip Start: 02-08-2023 End: 09-04-2023 Lancets misc Start: 02-08-2023 End: 09-04-2023 Pen Needle, Diab etic (Bd Ultra-Fine Shelley Pen Needle) 32 gauge x 5/32" needle Start: 02-13-2023 End: 09-04-2023 Blood Sugar Diagnostic (Blood Glucose Test) strip Start: 02-08-2023 End: 09-04-2023 Lancets misc Start: 02-08-2023 End: 09-04-2023 Pen Needle, Diab etic (Bd Ultra-Fine Shelley Pen Needle) 32 gauge x 5/32" needle Start: 02-13-2023 End: 09-04-2023 Blood Sugar Diagnostic (Blood Glucose Test) strip Start: 02-08-2023 End: 09-04-2023 Lancets misc Start: 02-08-2023 End: 09-04-2023 Pen Needle, Diab etic (Bd Ultra-Fine Shelley Pen Needle) 32 gauge x 5/32" needle Start: 02-13-2023 End: 09-04-2023 Blood Sugar Diagnostic (Blood Glucose Test) strip Start: 02-08-2023 End: 09-04-2023 Lancets misc Start: 02-08-2023 End: 09-04-2023 Pen Needle, Diab etic (Bd Ultra-Fine Shelley Pen Needle) 32 gauge x 5/32" needle Start: 02-13-2023 End: 09-04-2023 Goals Date Patient Goal Desired Activity /State Mental Status Date Assessment Result Facility 08-22-2023 Cognitive function Awake;Alert;A ppropriate;Fol lows Commands [facility] Work Phone: Clinical Notes 01-25-2023 to 01-21-2025 Note Date & Type Note Facility 01-21-2025 Radiology Diagnostic study note [facility] Imaging Services [address], [place] [id number] OB Limited With Biometrics MR#: [id number] Acct: [id number] Name: AZAEL SULTANA Rep #: [id number] : 2000 F 24 From: Zahra Puckett MD PCP: MING Sagastume Status: REG C DEREK Study:OB Limited With Biometrics Date of Exam : 01/16/25 Exam# [id number] Ordering Dr: Marietta Ghosh CNM PROCEDURE: OB LIMITED WITH BIOMETRICS 01/16/2025 REASON FOR EXAM: GROWTH US EVERY 4 WEEKS TECHNIQUE: OB LIMITED WITH BIOMETRICS COMPARISON: January 08, 2025 FINDINGS There is a live intrauterine . Position is cephalic, placenta is anterior not low, grade 2. Cervix is not visible. heart motion = 155 beats per minute LUCERO = 17.2 cm, max pocket = 6.0 cm. BPD = 9.22 cm, 37 weeks 3 days, 77% OFD = 11.21 cm, 37 weeks 1 day, 60% Head circumference = 32.74 cm, 37 weeks 1 day, 28% Abdominal circumference = 34.97 cm, 38 weeks 6 days, 96% Femur length = 7.11 cm, 36 weeks 3 days, 34% Estimated weight 3412 g, 83rd percentile age by current ultrasound = 37 weeks 2 days Estimated due date by current ultrasound February 04, 2025 survey was not performed. US/OB Limited With Biometrics IMPRESSION: age by current ultrasound = 37 weeks 2 days Estimated due date by current ultrasound February 04, 2025 Reading Location: [facility] CC: RACHAEL Ghosh; MING Ruiz ~ Orientation And Mobility Specialist: Signed [facility] 01-16-2025 Progress note [facility] 01-16-2025 Progress note Note Date/Time January 16, 2025 4:31pm [facility] [address], [address] [place] [address] OFFICE VISIT Date of Service: 01/16/25 MR#: [id number] Acct: [id number] Name: AZAEL SULTANA Rep #: [id number] : 2000 Provider: Dr. Reddy Zelaya MD Age/Sex: 24/F Location: [facility] Status: Signed Intake Vital Signs 12/11/24 15:58 01/13/25 19:19 01/16/25 16:03 01/16/25 16:07 Height 5 ft 3 in 5 ft 3 in 5 ft 3 in 5 ft 3 in Weight: 272 lb 2 oz BMI 48.2 BP 121/83 H Intake Visit Reasons: 37wk ob *csection Chief Complaint: 37 Week OB Cane Loader Required: No Is patient in pain?: No Allergies adhesive tape Allergy (Mild, Verified 01/16/25 16:02) Rash Medications ?Medication ?Instructions ?Recorded ?Confirmed ?Type multivit-min no.71-iron fum 28 300 cap PO DAILY pregna ncy 01/11/23 01/16/25 History mg-folate no.1 1 mg-dha 300 mg capsule (PNV-Clothier) ondansetron 4 mg disintegrating 4 mg PO Q4H PRN nausea and 06/18/24 01/16/25 Rx tablet vomiting #60 tabs metoclopramide HCl 10 mg tablet 10 mg PO TID nausea #9 0 tabs 08/27/24 01/16/25 Rx (Reglan) 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 sensor (FreeStyle #1 ea 12/03/24 5 Rx Dot 3 Sensor device) 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,hand gluer and slicer,cont #1 ea 12/03/24 01/16/25 Rx (FreeStyle Dot 3 Jenners) insulin degludec 100 unit/mL (3 46 unit subcut QHS 01/16/25 History mL) subcutaneous pen (Tresiba FlexTouch U-100 insulin) Last Menstrual Period: 05/02/24 Zika: Zika virus screening: Negative : No PFSH PFSH Medical History Seasonal allergies Hx of chlamydia infection Adopted Chlamydia infection affecting Anxiety Surgical History History of dental surgery Family History Mother Diabetes Grandfather Diabetes Social History adopted: Yes (limited family medical history known) household members: spouse, family and children number of children: 2 current occupational status: employed current occupation: [employer] current occupational exposures/hazards: No pets and animals: Yes pets and animals: dog(s) history of recent travel: No sexually active: Yes Smoking Status: Former smoker quit date: 10/30/22 how long ago did patient quit smokin year ago quit status: quit date established alcohol intake: former details: social drinking prior to substance use type: marijuana well-balanced diet: about half the time caffeine: Yes Type: carbonated beverages Number of servings: 1 eating out: 1-3 times/week during the past year weight has: increased > 10 lbs what type of physical activity do you participate in: none matt/adventist: None seatbelt use: always do you feel safe at home: Yes additional social history: Patient works at [email or web address]- Works at [employer] History 4 Elective abortions Hx Para 2 Spontaneous abortions 1 Hx # Term Pregnancies 2 Ectopic pregnancies Hx # Pregnancies Multiple births # of living children 2 Past Pregnancies Del. Date Name GA/Weeks Outcome Route Bth Weight Infant Gen Labor Lgth Anesthesia Del Locatn Provider FOB 07/20/20 Andre 37 live - full term vacuum 8# 11oz Male [facility] Alex 08/20/23 Radames Elizondo 38 live - full term 7lbs 8oz Male [facility] SM Delivery Date: 07/20/20 Last Updated by: Fadumo Zelaya MD IOL pre-eclampsia VAVD triple I, shoulder dystocia Delivery Date: 08/20/23 Last Updated by: Fadumo Zelaya MD secondary to shoulder dystocia with the first HPI 37wk ob *csection Details: AZAEL SULTANA is a 24 year old who presents for routine OB visit. OB Visit ANNA MARIE Calculator Estimated Delivery Date Method Current WG Current Estimate 02/06/25 LMP (Certain) 37w 0d Other Estimates 02/05/25 Ultrasound #1 37w 1d Expected Delivery Route/Plan RLTCS SM Labor Preferences- CB/BF classes: n0 labor support person: Andre-adilene c section labor intervention preferences: [] pain management options preferred: [] cut cord/dad catch: [] : [] PP control planned: [] discussed possible routes of delivery and associated risks: [] special requests: [] Specific Issue/Plans Covid status: [] Flu vaccine: [] Tdap vaccine: given Rhogam: na LARC form signed: yes Problem list reviewed and updated with the most current plan of care details and appropriate orders placed. Relevant counseling for the gestational age provided. Continue routine care and follow up unless otherwise noted in visit notes/problem list details Initial Weight: 247 lb Date -?-?-?-?-?-?-?-?-?-?-?-?- EGA Weight BP Urine Prot -?-?-?-?-?-?-?-?-?-?-?-?- Glucose FHR FuHt Pres Dilation -?-?-?-?-?-?-?-?-?-?-?-?- Effaced St Visit Note 07/03/24 -?-?-?-?-?-?-?-?-?-?-?-?- 8w 6d 247 lb 6 oz (+6 oz) 127/78 -?-?-?-?-?-?-?-?-?-?-?-?- 174 -?-?-?-?-?-?-?-?-?-?-?-?- KW- CRL cons wit h dates. accepts NIPT. KW- CRL cons with dates. acc epts NIPT. planning early gct due to hx of GDM and obesity. will start asa at 12 weeks 08/01/24 -?-?-?-?-?-?-?-?-?-?-?-?- 13w 0d 250 lb 6 oz (+3 lb 6 oz) 124/83 Negative -?-?-?-?-?-?-?-?-?-?-?-?- Negative 150 -?-?-?-?-?-?-?-?-?-?-?-?- SM- no vb lof cr amping having trouble sleeping 08/27/24 -?-?-?-?-?-?-?-?-?-?-?-?- 16w 5d 255 lb 4 oz (+8 lb 4 oz) 135/82 -?-?-?-?-?-?-?-?-?-?-?-?- 150 -?-?-?-?-?-?-?-?-?-?-?-?- SM- having heada ches and dizziness, approve intermittent FMLA as needed for symptoms. discussed supprotive care ordered reglan. anatomy us ordered 10/02/24 -?-?-?-?-?-?-?-?-?-?-?-?- 21w 6d 258 lb 2 oz (+11 lb 2 oz) 122/82 -?-?-?-?-?-?-?-?-?-?-?-?- 150 -?-?-?-?-?-?-?-?-?-?-?-?- KW- no vb/crampi ng. +fm. no longer having headaches. US reviewed. growth US q 4 weeks- requesting to do them at [facility] because insurance lapsed. 10/31/24 -?-?-?-?-?-?-?-?-?-?-?-?- 26w 0d 264 lb 4 oz (+17 lb 4 oz) 129/84 Negative -?-?-?-?-?-?-?-?-?-?-?-?- Negative 145 -?-?-?-?-?-?-?-?-?-?-?-?- KW- no vb/lof/ct x. good fm. glucose info given for next visit. US scheduled for 11/1311/11/24 -?-?-?-?-?-?-?-?-?-?-?-?- 27w 4d 261 lb 8 oz (+14 lb 8 oz) 120/82 Negative -?-?-?-?-?-?-?-?-?-?-?-?- Negative 135 33 -?-?-?-?-?-?-?-?-?-?-?-?- KW- no vb/lof/ct x. good fm. glucose done. request for PFPT for pelvic pain. R c/s requested at 39 weeks-but wants to consider 12/11/24 -?-?-?-?-?-?-?-?-?-?-?-?- 31w 6d 263 lb 4 oz (+16 lb 4 oz) 124/78 Negative -?-?-?-?-?-?-?-?-?-?-?-?- Negative 152 34 -?-?-?-?-?-?-?-?-?-?-?-?- MH-NO VB, LOF. G ood FM. Growth Us ordered and gave number to call. Glucose readings not brought with her but states 2 hr pp running 150s. Sees Dr Vaughan early next week to discuss insulin. 12/26/24 -?-?-?-?-?-?-?-?-?-?-?-?- 34w 0d 264 lb 6 oz (+17 lb 6 oz) 138/82 Trace -?-?-?-?-?-?-?-?-?-?-?-?- Negative 140 36 -?-?-?-?-?-?-?-?-?--?-?-?- SM- no vb lof go od fm n oregular ctx feeling uncomfortable, going to start leave now 01/08/25 -?-?-?-?-?-?-?-?-?-?-?-?- 35w 6d 271 lb 4 oz (+24 lb 4 oz) 140/82 Trace -?-?-?-?-?-?-?-?-?-?-?-?- Negative 142 38 -?-?-?-?-?-?-?-?-?-?-?-?- MH-No VB, LOF. G ood FM. States had normal BPP earlier today. Slight headache. Dr Vaughan increased insulin to 30 U QHS today. To WP for further evaluation/discussed with JKenny 01/16/25 -?-?-?-?-?-?-?-?-?-?-?-?- 37w 0d 272 lb 2 oz (+25 lb 2 oz) 121/83 -?-?-?-?-?-?-?-?-?-?-?-?- 140 39 Cephalic 1.5 -?-?-?-?-?-?-?-?-?-?-?-?- 50 -2 SM- no vb lof good fm no regular ctx increased night time insulin, discussed may move up to 38 wek delivery if polyhydramnios ACOG First Trimester First Trimester: Discussed Second Trimester Second Trimester: Signs and Symptoms of Labor, Selecting a care provider, Reproductive Life Planning & Contreception, Care Planning, Depression/Anxiety and Intimate Partner Violence; Discussed Tobacco Cessation Third Trimester Third Trimester: Pain Management Plans, Labor support person(s), Immediate Larc, Circumcision preference, Movement Monitoring, Signs and Symptoms of Preeclampsia, Infant Feeding No and Family Medical Leave or Disability Forms; Discussed Tobacco Cessation ROS Const Denies fever(s) GI Reports as per HPI and Denies abdominal pain Reports as per HPI, Denies abnormal vaginal bleeding, Denies dysuria and Denies vaginal discharge Exam Const General: healthy appearing, comfortable and no acute distress GI Inspection: normal to inspection Palpation: soft and nontender Coding Level of Care Code OB Routine Diagnoses 37 weeks gestation of Z3A.37 Weeks of gestation: 37 weeks Supervision of high risk in third trimester O09.93 Trimester: third trimester Hx of gestational diabetes in prior , currently O09.299; Z86.32 History of pre-eclampsia in prior , currently O09.299 Marijuana use F12.90 Adopted Z02.82 Mild depression F32.A Anxiety F41.9 History of miscarriage, currently O09.299 Obesity affecting in third trimester, unspecified obesity type O99.213 Obesity type affecting : unspecified obesity Trimester: third trimester Circumvallate placenta in third trimester O43.113 Trimester: third trimester Gestational diabetes mellitus (GDM) affecting , antepartum O24.419 Previous section Z98.891 Pelvic floor dysfunction in female M62.89 Allergy to adhesive tape Z91.048 Assessment and Plan Assessment and Plan (1) : Status: Acute Qualifiers: Weeks of gestation: 37 weeks Qualified Code(s): Z3A.37 - 37 weeks gestation of Comment: NIPT low risk (2) Supervision of high-risk : Status: Acute Qualifiers: Trimester: third trimester Qualified Code(s): O09.93 - Supervision of high risk , unspecified, third trimester Comment: PRR, , ANNA MARIE 02/06/25, girl PC Radames Powell, Andre- goes by Reuben (3) Hx of gestational diabetes in prior , currently : Status: Acute Comment: early 1 hour gct (4) History of pre-eclampsia in prior , currently : Status: Acute Comment: asa and pre e labs (5) Marijuana use: Status: Acute Comment: positive at NOB, encouraged cessation, pt aware of random tox screens, Pt states uses 4 days/week in morning due to lack of appetite (6) Adopted: Status: Acute Comment: limited known family history (7) Mild depression: Status: Acute (8) Anxiety: Status: Acute (9) History of miscarriage, currently : Status: Acute (10) Obesity affecting : Status: Acute Qualifiers: Obesity type affecting : unspecified obesity Trimester: third trimester Qualified Code(s): O99.213 - Obesity complicating , third trimester Comment: HgbA1c (11) Circumvallate placenta: Status: Acute Qualifiers: Trimester: third trimester Qualified Code(s): O43.113 - Circumvallate placenta, third trimester Comment: growth US Q4w (12) Gestational diabetes mellitus (GDM) affecting , antepartum: Status: Acute Comment: on NPH insulin at night. discussed if polyhydramnios may recommend 38 week delivery (13) Previous section: Status: Acute (14) Pelvic floor dysfunction in female: Status: Acute (15) Allergy to adhesive tape: Status: Acute Orders: Orders POC Urinalysis 2 Dip (Clinic) Today Culture, Group B Streptococcus Today O09.93 - Supervision of high risk , unspecified, third trimester 01/16/25 1631 <Electronically signed by Fadumo osborn MD> Date _ Fadumo Zelaya MD Cosigner Signature: Date (if applicable) CC: ~ [facility] Work Phone: [phone] 498-538907-10-2025 Radiology Diagnostic study note [facility] Imaging Services [address], [place] [address] OB Biophysical Prof W/O NST MR#: [id number] Acct: [id number] Name: AZAEL SULTANA Rep #: [id number] : 2000 F 24 From: Guille Eugene MD PCP: MING Sagastume Status: REG C DEREK Study:OB Biophysical Prof W/O NST Date of Exa m: 01/08/25 Exam# [id number] Ordering Dr: Fadumo Zhang MD PROCEDURE: OB BIOPHYSICAL PROF W/O NST 01/08/2025 REASON FOR EXAM: WELL BEING TECHNIQUE: OB BIOPHYSICAL PROF W/O NST COMPARISON: January 01, 2025. FINDINGS Number: 1 Position: Vertex Placental Position: Anterior and not low-lying. Placental Abnormalities: No evidence of previa. ESTIMATED GESTATIONAL AGE: Baseline: 35 weeks and 6 days By Ultrasound: ESTIMATED DATE OF DELIVERY: Baseline: BIOPHYSICAL ASSESSMENT: Amniotic Fluid Volume: 9.4 cm Amniotic Fluid Index: 20.5 (8-24 cm normal range) Cardiac Motion: 155 beats per minute (average) Trunk and Limb Motion: Present. MATERNAL ANATOMY: Adnexa: Neither maternal ovary is successfully identified. Biophysical profile: Breathing movements: 2 Gross body movements: 2 tone: 2 Amniotic fluid volume: 2 Total score: 8/8 US/OB Biophysical Prof W/O NST IMPRESSION: Normal biophysical profile score of 8/8 Reading Location: [place] [address] CC: MING Ruiz; Dr. Fadumo Zelaya MD ~ Orientation And Mobility Specialist: Signed [facility]07-06-2025 Radiology Diagnostic study note [facility] Imaging Services [address] [place] [id number] OB Biophysical Prof W/O NST MR#: [id number] Acct: [id number] Name: AZAEL SULTANA Rep #: [id number] : 2000 F 24 From: Pet er Peer DO PCP: MING Sagastume Status: REG C DEREK Study:OB Biophysical Prof W/O NST Date of Exa m: 01/01/25 Exam# [id number] Ordering Dr: Fadumo Zhang MD PROCEDURE: OB BIOPHYSICAL PROF W/O nonstress test 01/01/2025 REASON FOR EXAM: WELL BEING TECHNIQUE: OB BIOPHYSICAL PROF W/O nonstress test COMPARISON: None. FINDINGS Number: 1 Position: Breech Placental Position: Anterior Placental Abnormalities: Not low-lying ESTIMATED GESTATIONAL AGE: Baseline: 34 weeks, 6 days By Ultrasound: 35 weeks, 4 days ESTIMATED DATE OF DELIVERY: Baseline: February 07, 2020 By Ultrasound: February 02, 2020 BIOPHYSICAL ASSESSMENT: Amniotic Fluid Volume: Normal Amniotic Fluid Index: 14.6 (8-24 cm normal range) Cardiac Motion: 158 (average) Trunk and Limb Motion: Present. US/OB Biophysical Prof W/O NST IMPRESSION: Biophysical profile score: 8/8 Reading Location: [facility] CC: MING Ruiz; Dr. Fadumo Zelaya MD ~ Orientation And Mobility Specialist: Signed [facility]06-27-2025 [facility] [address], [address] [place] [address] OFFICE VISIT Date of Service: 12/26/24 MR#: [id number] Acct: [id number] Name: AZAEL SULTANA Rep #: [id number] : 2000 Provider: Dr. Reddy Zelaya MD Age/Sex: 24/F Location: [facility] Status: Signed Intake Vital Signs 07/03/24 13:01 12/16/24 10:39 12/26/24 14:26 12/26/24 14:28 Height 5 ft 3 in 5 ft 3 in 5 ft 3 in 5 ft 3 in Weight: 264 lb 6 oz BMI 46.8 BP 138/82 H Intake Visit Reasons: 34 WK OB Cane Loader Required: No Is patient in pain?: No Allergies adhesive tape Allergy (Mild, Verified 12/26/24 14:26) Rash Medications ?Medication ?Instructions ?Recorded ?Confirmed ?Type multivit-min no.71-iron fum 28 300 cap PO DAILY pregna ncy 01/11/23 12/26/24 History mg-folate no.1 1 mg-dha 300 mg capsule (PNV-Clothier) ondansetron 4 mg disintegrating 4 mg PO Q4H PRN nausea and 06/18/24 12/26/24 Rx tablet vomiting #60 tabs metoclopramide HCl 10 mg tablet 10 mg PO TID nausea #9 0 tabs 08/27/24 12/26/24 Rx (Reglan) 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 sensor (FreeStyle #1 ea 12/03/24 5 Rx Dot 3 Sensor device) 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,hand gluer and slicer,cont #1 ea 12/03/24 12/26/24 Rx (FreeStyle Dot 3 Jenners) metformin 1,000 mg tablet 1,000 mg PO BID #60 tabs 12/26/24 Rx Last Menstrual Period: 05/02/24 Zika: Zika virus screening: Negative : No PFSH PFSH Medical History Seasonal allergies Hx of chlamydia infection Adopted Chlamydia infection affecting Anxiety Surgical History History of dental surgery Family History Mother Diabetes Grandfather Diabetes Social History adopted: Yes (limited family medical history known) household members: spouse, family and children number of children: 2 current occupational status: employed current occupation: [employer] current occupational exposures/hazards: No pets and animals: Yes pets and animals: dog(s) history of recent travel: No sexually active: Yes Smoking Status: Former smoker quit date: 10/30/22 how long ago did patient quit smokin year ago quit status: quit date established alcohol intake: former details: social drinking prior to substance use type: marijuana well-balanced diet: about half the time caffeine: Yes Type: carbonated beverages Number of servings: 1 eating out: 1-3 times/week during the past year weight has: increased > 10 lbs what type of physical activity do you participate in: none matt/adventist: None seatbelt use: always do you feel safe at home: Yes additional social history: Patient works at [employer]- Works at [employer] History 4 Elective abortions Hx Para 2 Spontaneous abortions 1 Hx # Term Pregnancies 2 Ectopic pregnancies Hx # Pregnancies Multiple births # of living children 2 Past Pregnancies Del. Date Name GA/Weeks Outcome Route Bth Weight Gen Labor Lgth Anesthesia Del Locatn Provider FOB 07/20/20 Andre 37 live - full term vacuum 8# 11oz Male [facility] Alex 08/20/23 Radames Elizondo 38 live - full term 7lbs 8oz Male [facility] SM Delivery Date: 07/20/20 Last Updated by: Fadumo Zelaya MD IOL pre-eclampsia VAVD triple I, shoulder dystocia Delivery Date: 08/20/23 Last Updated by: Fadumo Zelaya MD secondary to shoulder dystocia with the first HPI 34 WK OB Details: AZAEL SULTANA is a 24 year old who presents for routine OB visit. OB Visit ANNA MARIE Calculator Estimated Delivery Date Method Current WG Current Estimate 02/06/25 LMP (Certain) 34w 0d Other Estimates 02/05/25 Ultrasound #1 34w 1d Expected Delivery Route/Plan RLTCS SM Labor Preferences- CB/BF classes: n0 labor support person: Marla johnson section labor intervention preferences: [] pain management options preferred: [] cut cord/dad catch: [] : [] PP control planned: [] discussed possible routes of delivery and associated risks: [] special requests: [] Specific Issue/Plans Covid status: [] Flu vaccine: [] Tdap vaccine: given Rhogam: na LARC form signed: yes Problem list reviewed and updated with the most current plan of care details and appropriate ordersplaced. Relevant counseling for the gestational age provided. Continue routine care and follow up unless otherwise noted in visit notes/problem list details Initial Weight: 247 lb Date -?-?-?-?-?-?-?-?-?-?-?-?- EGA Weight BP Urine Prot -?-?-?-?-?-?-?-?-?-?-?-?- Glucose FHR FuHt Pres Dilation -?-?-?-?-?-?-?-?-?-?-?-?- Effaced St Visit Note 07/03/24 -?-?-?-?-?-?-?-?-?-?-?-?- 8w 6d 247 lb 6 oz (+6 oz) 127/78 -?-?-?-?-?-?-?-?-?-?-?-?- 174 -?-?-?-?-?-?-?-?-?-?-?-?- KW- CRL cons wit h dates. accepts NIPT. KW- CRL cons with dates. acc epts NIPT. planning early gct due to hx of GDM and obesity. will start asa at 12 weeks 08/01/24 -?-?-?-?-?-?-?-?-?-?-?-?- 13w 0d 250 lb 6 oz (+3 lb 6 oz) 124/83 Negative -?-?-?-?-?-?-?-?-?-?-?-?- Negative 150 -?-?-?-?-?-?-?-?-?-?-?-?- SM- no vb lof cr amping having trouble sleeping 08/27/24 -?-?-?-?-?-?-?-?-?-?-?-?- 16w 5d 255 lb 4 oz (+8 lb 4 oz) 135/82 -?-?-?-?-?-?-?-?-?-?-?-?- 150 -?-?-?-?-?-?-?-?-?-?-?-?- SM- having heada ches and dizziness, approve intermittent FMLA as needed for symptoms. discussed supprotive care ordered reglan. anatomy us ordered 10/02/24 -?-?-?-?-?-?-?-?-?-?-?-?- 21w 6d 258 lb 2 oz (+11 lb 2 oz) 122/82 -?-?-?-?-?-?-?-?-?-?-?-?- 150 -?-?-?-?-?-?-?-?-?-?-?-?- KW- no vb/crampi ng. +fm. no longer having headaches. US reviewed. growth US q 4 weeks- requesting to do them at [facility] because insurance lapsed. 10/31/24 -?-?-?-?-?-?-?-?-?-?-?-?- 26w 0d 264 lb 4 oz (+17 lb 4 oz) 129/84 Negative -?-?-?-?-?-?-?-?-?-?-?-?- Negative 145 -?-?-?-?-?-?-?-?-?-?-?-?- KW- no vb/lof/ct x. good fm. glucose info given for next visit. US scheduled for 11/1311/11/24 -?-?-?-?-?-?-?-?-?-?-?-?- 27w 4d 261 lb 8 oz (+14 lb 8 oz) 120/82 Negative -?-?-?-?-?-?-?-?-?-?-?-?- Negative 135 33 -?-?-?-?-?-?-?-?-?-?-?-?- KW- no vb/lof/ct x. good fm. glucose done. request for PFPT for pelvic pain. R c/s requested at 39 weeks-but wants to consider 12/11/24 -?-?-?-?-?-?-?-?-?-?-?-?- 31w 6d 263 lb 4 oz (+16 lb 4 oz) 124/78 Negative -?-?-?-?-?-?-?-?-?-?-?-?- Negative 152 34 -?-?-?-?-?-?-?-?-?-?-?-?- MH-NO VB, LOF. G ood FM. Growth Us ordered and gave number to call. Glucose readings not brought with her but states 2 hr pp running 150s. Sees Dr Vaughan early next week to discuss insulin. 12/26/24 -?-?-?-?-?-?-?-?-?-?-?-?- 34w 0d 264 lb 6 oz (+17 lb 6 oz) 138/82 Trace -?-?-?-?-?-?-?-?-?-?-?-?- Negative 140 36 -?-?-?-?-?-?-?-?-?-?-?-?- SM- no vb lof go od fm n oregular ctx feeling uncomfortable, going to start leave now ACOG First Trimester First Trimester: Discussed Second Trimester Second Trimester: Signs and Symptoms of Labor, Selecting a care provider, Reproductive Life Planning & Contreception, Care Planning, Depression/Anxiety and Intimate Partner Violence; Discussed Tobacco Cessation Third Trimester Third Trimester: Pain Management Plans, Labor support person(s), Immediate Larc, Circumcision preference, Movement Monitoring, Signs and Symptoms of Preeclampsia, Feeding No and Family Medical Leave or Disability Forms; Discussed Tobacco Cessation ROS Const Denies fever(s) GI Reports as per HPI and Denies abdominal pain Reports as per HPI, Denies abnormal vaginal bleeding, Denies dysuria and Denies vaginal discharge Exam Const General: healthy appearing, comfortable and no acute distress GI Inspection: normal to inspection Palpation: soft and nontender Results POC Urinalysis Dip (Clinic) Office Urine Color STRAW Last Edit by Maribel Crisostomo on 12/26/24 14:39 Office Urine Clarity Cloudy Last Edit by Maribel Crisostomo on 12/26/24 14:39 Office Urine Glucose Negative Last Edit by Maribel Crisostomo on 12/26/24 14: 39 Office Urine Ketones Negative Last Edit by Maribel Crisostomo on 12/26/24 14: 39 Off Ur Spec [place] 1.025 Last Edit by Maribel Crisostomo on 12/26/24 14:39 Office Urine pH 5.0 Last Edit by Maribel Crisostomo on 12/26/24 14:39 Office Urine Bilirubin Negative Last Edit by Maribel Crisostomo on 12/26/24 14:39 Office Urine Urobilinogen 0.2 mg/dL Last Edit by Maribel Crisostomo on 14:39 Office Urine Blood Negative Last Edit by Maribel Crisostomo on 12/26/24 14:39 Office Urine Blood Hemolyzed Last Edit by Maribel Crisostomo on 12/26/24 14: 39 Office Urine Protein Trace Last Edit by Maribel Crisostomo on 12/26/24 14:39 Office Urine Nitrate Negative Last Edit by Maribel Crisostomo on 12/26/24 14: 39 Off Ur Leukocytes Negatve Last Edit by Maribel Crisostomo on 12/26/24 14:39 Coding Level of Care Code Off vis,est,level 3 Diagnoses Gestational diabetes mellitus (GDM) affecting , antepartum O24.419 Circumvallate placenta in third trimester O43.113 Trimester: third trimester Obesity affecting in third trimester, unspecified obesity type O99.213 Obesity type affecting : unspecified obesity Trimester: third trimester History of miscarriage, currently O09.299 Anxiety F41.9 Mild depression F32.A Adopted Z02.82 Marijuana use F12.90 History of pre-eclampsia in prior , currently O09.299 Hx of gestational diabetes in prior , currently O09.299; Z86.32 Supervision of high risk in third trimester O09.93 Trimester: third trimester 34 weeks gestation of Z3A.34 Weeks of gestation: 34 weeks Previous section Z98.891 Pelvic floor dysfunction in female M62.89 Allergy to adhesive tape Z91.048 Assessment and Plan Assessment and Plan (1) Gestational diabetes mellitus (GDM) affecting , antepartum: Status: Acute (2) Circumvallate placenta: Status: Acute Qualifiers: Trimester: third trimester Qualified Code(s): O43.113 - Circumvallate placenta, third trimester Comment: growth US Q4w (3) Obesity affecting : Status: Acute Qualifiers: Obesity type affecting : unspecified obesity Trimester: third trimester Qualified Code(s):O99.213 - Obesity complicating , third trimester Comment: HgbA1c (4) History of miscarriage, currently : Status: Acute (5) Anxiety: Status: Acute (6) Mild depression: Status: Acute (7) Adopted: Status: Acute Comment: limited known family history (8) Marijuana use: Status: Acute Comment: positive at NOB, encouraged cessation, pt aware of random tox screens, Pt states uses 4 days/week in morning due to lack of appetite (9) History of pre-eclampsia in prior , currently : Status: Acute Comment: asa and pre e labs (10) Hx of gestational diabetes in prior , currently : Status: Acute Comment: early 1 hour gct (11) Supervision of high-risk : Status: Acute Qualifiers: Trimester: third trimester Qualified Code(s): O09.93 - Supervision of high risk , unspecified, third trimester Comment: PRR, , ANNA MARIE 02/06/25, PC Radames Powell, Andre- goes by Reuben (12) : Status: Acute Qualifiers: Weeks of gestation: 34 weeks Qualified Code(s): Z3A.34 - 34 weeks gestation of Comment: NIPT low risk (13) Previous section: Status: Acute (14) Pelvic floor dysfunction in female: Status: Acute (15) Allergy to adhesive tape: Status: Acute Orders: Orders POC Urinalysis Dip (Clinic) Today Dr. vEelin Cardona DO R10.2 - Pelvic and perineal pain CBC W/Diff, Automated Today Dr. Fadumo Zelaya MD O16.9 - Unspecified maternal hypertension, unspecified trimester Comprehensive Metabolic Profil Today Dr. Fadumo Zelaya MD O16.9 - Unspecified maternal hypertension, unspecified trimester Protein+Creatinine Ratio,Urine Today Dr. Fadumo Zelaya MD O16.9 - Unspecified maternal hypertension, unspecified trimester OB Biophysical Prof W/O NST Today Dr. Fadumo Zelaya MD O26.899 - Other specified related conditions, unspecified trimester, R51.9 - Headache, unspecified OB Biophysical Prof W/O NST Today Dr. Fadumo Zelaya MD O26.899 - Other specified related conditions, unspecified trimester, R51.9 - Headache, unspecified OB Biophysical Prof W/O NST Today Dr. Fadumo Zelaya MD O26.899 - Other specified related conditions, unspecified trimester, R51.9 - Headache, unspecified OB Biophysical Prof W/O NST Today Dr. Fadumo Zelaya MD O26.899 - Other specified related conditions, unspecified trimester, R51.9 - Headache, unspecified OB Biophysical Prof W/O NST Today Dr. Fadumo Zelaya MD O26.899 - Other specified related conditions, unspecified trimester, R51.9 - Headache, unspecified OB Biophysical Prof W/O NST Today Dr. Fadumo Zelaya MD O26.899 - Other specified related conditions, unspecified trimester, R51.9 - Headache, unspecified 12/26/24 145Shelley osborn MD> Date _ Fadumo Ferris Signature: Date (if applicable) CC: ~ [facility]06-27-2025 Progress note Author Fadumo Zelaya [facility] Note Date/Time December 26, 2024 2:49 pm [facility] [address], [address] [place] [id number] OFFICE VISIT Date of Service: 12/26/24 MR#: [id number] Acct: [id number] Name: AZAEL SULTANA Rep #: [id number] : 2000 Provider: Dr. Reddy Zelaya MD Age/Sex: 24/F Location: [facility] Status: Signed Intake Vital Signs 07/03/24 13:01 12/16/24 10:39 12/26/24 14:26 12/26/24 14:28 Height 5 ft 3 in 5 ft 3 in 5 ft 3 in 5 ft 3 in Weight: 264 lb 6 oz BMI 46.8 BP 138/82 H Intake Visit Reasons: 34 WK OB Cane Loader Required: No Is patient in pain?: No Allergies adhesive tape Allergy (Mild, Verified 12/26/24 14:26) Rash Medications ?Medication ?Instructions ?Recorded ?Confirmed ?Type multivit-min no.71-iron fum 28 300 cap PO DAILY pregna ncy 01/11/23 12/26/24 History mg-folate no.1 1 mg-dha 300 mg capsule (PNV-Clothier) ondansetron 4 mg disintegrating 4 mg PO Q4H PRN nausea and 06/18/24 12/26/24 Rx tablet vomiting #60 tabs metoclopramide HCl 10 mg tablet 10 mg PO TID nausea #9 0 tabs 08/27/24 12/26/24 Rx (Reglan) 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 sensor (FreeStyle #1 ea 12/03/24 5 Rx Dot 3 Sensor device) 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,hand gluer and slicer,cont #1 ea 12/03/24 12/26/24 Rx (FreeStyle Dot 3 Jenners) metformin 1,000 mg tablet 1,000 mg PO BID #60 tabs 12/26/24 Rx Last Menstrual Period: 05/02/24 Zika: Zika virus screening: Negative : No PFSH PFSH Medical History Seasonal allergies Hx of chlamydia infection Adopted Chlamydia infection affecting Anxiety Surgical History History of dental surgery Family History Mother Diabetes Grandfather Diabetes Social History adopted: Yes (limited family medical history known) household members: spouse, family and children number of children: 2 current occupational status: employed current occupation: [employer] current occupational exposures/hazards: No pets and animals: Yes pets and animals: dog(s) history of recent travel: No sexually active: Yes Smoking Status: Former smoker quit date: 10/30/22 how long ago did patient quit smokin year ago quit status: quit date established alcohol intake: former details: social drinking prior to substance use type: marijuana well-balanced diet: about half the time caffeine: Yes Type: carbonated beverages Number of servings: 1 eating out: 1-3 times/week during the past year weight has: increased > 10 lbs what type of physical activity do you participate in: none matt/adventist: None seatbelt use: always do you feel safe at home: Yes additional social history: Patient works at [employer]- Works at [employer] History 4 Elective abortions Hx Para 2 Spontaneous abortions 1 Hx # Term Pregnancies 2 Ectopic pregnancies Hx # Pregnancies Multiple births # of living children 2 Past Pregnancies Del. Date Name GA/Weeks Outcome Route Bth Weight Gen Labor Lgth Anesthesia Del Locatn Provider FOB 07/20/20 Andre 37 live - full term vacuum 8# 11oz Male [facility] Alex 08/20/23 Radames Elizondo 38 live - full term 7lbs 8oz Male [facility] Delivery Date: 07/20/20 Last Updated by: Fadumo Zelaya MD IOL pre-eclampsia VAVD triple I, shoulder dystocia Delivery Date: 08/20/23 Last Updated by: Fadumo Zelaya MD secondary to shoulder dystocia with the first HPI 34 WK OB Details: AZAEL SULTANA is a 24 year old who presents for routine OB visit. OB Visit ANNA MARIE Calculator Estimated Delivery Date Method Current WG Current Estimate 02/06/25 LMP (Certain) 34w 0d Other Estimates 02/05/25 Ultrasound #1 34w 1d Expected Delivery Route/Plan RLTCS Labor Preferences- CB/BF classes: n0 labor support person: Marla c section labor intervention preferences: [] pain management options preferred: [] cut cord/dad catch: [] : [] PP control planned: [] discussed possible routes of delivery and associated risks: [] special requests: [] Specific Issue/Plans Covid status: [] Flu vaccine: [] Tdap vaccine: given Rhogam: na LARC form signed: yes Problem list reviewed and updated with the most current plan of care details and appropriate orders placed. Relevant counseling for the gestational age provided. Continue routine care and follow up unless otherwise noted in visit notes/problem list details Initial Weight: 247 lb Date -?-?-?-?-?-?-?-?-?-?-?-?- EGA Weight BP Urine Prot -?-?-?-?-?-?-?-?-?-?-?-?- Glucose FHR FuHt Pres Dilation -?-?-?-?-?-?-?-?-?-?-?-?- Effaced St Visit Note 07/03/24 -?-?-?-?-?-?-?-?-?-?-?-?- 8w 6d 247 lb 6 oz (+6 oz) 127/78 -?-?-?-?-?-?-?-?-?-?-?-?- 174 -?-?-?-?-?-?-?-?-?-?-?-?- KW- CRL cons wit h dates. accepts NIPT. KW- CRL cons with dates. acc epts NIPT. planning early gct due to hx of GDM and obesity. will start asa at 12 weeks 08/01/24 -?-?-?-?-?-?-?-?-?-?-?-?- 13w 0d 250 lb 6 oz (+3 lb 6 oz) 124/83 Negative -?-?-?-?-?-?-?-?-?-?-?-?- Negative 150 -?-?-?-?-?-?-?-?-?-?-?-?- SM- no vb lof cr amping having trouble sleeping 08/27/24 -?-?-?-?-?-?-?-?-?-?-?-?- 16w 5d 255 lb 4 oz (+8 lb 4 oz) 135/82 -?-?-?-?-?-?-?-?-?-?-?-?- 150 -?-?-?-?-?-?-?-?-?-?-?-?- SM- having heada ches and dizziness, approve intermittent FMLA as needed for symptoms. discussed supprotive care ordered reglan. anatomy us ordered 10/02/24 -?-?-?-?-?-?-?-?-?-?-?-?- 21w 6d 258 lb 2 oz (+11 lb 2 oz) 122/82 -?-?-?-?-?-?-?-?-?-?-?-?- 150 -?-?-?-?-?-?-?-?-?-?-?-?- KW- no vb/crampi ng. +fm. no longer having headaches. US reviewed. growth US q 4 weeks- requesting to do them at [facility] because insurance lapsed. 10/31/24 -?-?-?-?-?-?-?-?-?-?-?-?- 26w 0d 264 lb 4 oz (+17 lb 4 oz) 129/84 Negative -?-?-?-?-?-?-?-?-?-?-?-?- Negative 145 -?-?-?-?-?-?-?-?-?-?-?-?- KW- no vb/lof/ct x. good fm. glucose info given for next visit. US scheduled for 11/1311/11/24 -?-?-?-?-?-?-?-?-?-?-?-?- 27w 4d 261 lb 8 oz (+14 lb 8 oz) 120/82 Negative -?-?-?-?-?-?-?-?-?-?-?-?- Negative 135 33 -?-?-?-?-?-?-?-?-?-?-?-?- KW- no vb/lof/ct x. good fm. glucose done. request for PFPT for pelvic pain. R c/s requested at 39 weeks-but wants to consider 12/11/24 -?-?-?-?-?-?-?-?-?-?-?-?- 31w 6d 263 lb 4 oz (+16 lb 4 oz) 124/78 Negative -?-?-?-?-?-?-?-?-?-?-?-?- Negative 152 34 -?-?-?-?-?-?-?-?-?-?-?-?- MH-NO VB, LOF. G ood FM. Growth Us ordered and gave number to call. Glucose readings not brought with her but states 2 hr pp running 150s. Sees Dr Vaughan early next week to discuss insulin. 12/26/24 -?-?-?-?-?-?-?-?-?-?-?-?- 34w 0d 264 lb 6 oz (+17 lb 6 oz) 138/82 Trace -?-?-?-?-?-?-?-?-?-?-?-?- Negative 140 36 -?-?-?-?-?-?-?-?-?-?-?-?- SM- no vb lof go od fm n oregular ctx feeling uncomfortable, going to start leave now ACOG First Trimester First Trimester: Discussed Second Trimester Second Trimester: Signs and Symptoms of Labor, Selecting a care provider, Reproductive Life Planning & Contreception, Care Planning, Depression/Anxiety and Intimate Partner Violence; Discussed Tobacco Cessation Third Trimester Third Trimester: Pain Management Plans, Labor support person(s), Immediate Larc, Circumcision preference, Movement Monitoring, Signs and Symptoms of Preeclampsia, Infant Feeding No and Family Medical Leave or Disability Forms; Discussed Tobacco Cessation ROS Const Denies fever(s) GI Reports as per HPI and Denies abdominal pain Reports as per HPI, Denies abnormal vaginal bleeding, Denies dysuria and Denies vaginal discharge Exam Const General: healthy appearing, comfortable and no acute distress GI Inspection: normal to inspection Palpation: soft and nontender Results POC Urinalysis Dip (Clinic) Office Urine Color STRAW Last Edit by Maribel Crisostomo on 12/26/24 14:39 Office Urine Clarity Cloudy Last Edit by Maribel Crisostomo on 12/26/24 14:39 Office Urine Glucose Negative Last Edit by Maribelsandeep Covingtonion on 12/26/24 14: 39 Office Urine Ketones Negative Last Edit by Maribelsandeep Covingtonion on 12/26/24 14: 39 Off Ur Spec [place] 1.025 Last Edit by Maribel Covingtonion on 12/26/24 14:39 Office Urine pH 5.0 Last Edit by Maribel Covingtonion on 12/26/24 14:39 Office Urine Bilirubin Negative Last Edit by Maribel Covingtonion on 12/26/24 14:39 Office Urine Urobilinogen 0.2 mg/dL Last Edit by Maribelsandeep Covingtonion on 14:39 Office Urine Blood Negative Last Edit by Maribel Crisostomo on 12/26/24 14:39 Office Urine Blood Hemolyzed Last Edit by Maribel Covingtonion on 12/26/24 14: 39 Office Urine Protein Trace Last Edit by Maribel Covingtonion on 12/26/24 14:39 Office Urine Nitrate Negative Last Edit by Maribel Covingtonion on 12/26/24 14: 39 Off Ur Leukocytes Negatve Last Edit by Maribelsandeep Covingtonion on 12/26/24 14:39 Coding Level of Care Code Off vis,est,level 3 Diagnoses Gestational diabetes mellitus (GDM) affecting , antepartum O24.419 Circumvallate placenta in third trimester O43.113 Trimester: third trimester Obesity affecting in third trimester, unspecified obesity type O99.213 Obesity type affecting : unspecified obesity Trimester: third trimester History of miscarriage, currently O09.299 Anxiety F41.9 Mild depression F32.A Adopted Z02.82 Marijuana use F12.90 History of pre-eclampsia in prior , currently O09.299 Hx of gestational diabetes in prior , currently O09.299; Z86.32 Supervision of high risk in third trimester O09.93 Trimester: third trimester 34 weeks gestation of Z3A.34 Weeks of gestation: 34 weeks Previous section Z98.891 Pelvic floor dysfunction in female M62.89 Allergy to adhesive tape Z91.048 Assessment and Plan Assessment and Plan (1) Gestational diabetes mellitus (GDM) affecting , antepartum: Status: Acute (2) Circumvallate placenta: Status: Acute Qualifiers: Trimester: third trimester Qualified Code(s): O43.113 - Circumvallate placenta, third trimester Comment: growth US Q4w (3) Obesity affecting : Status: Acute Qualifiers: Obesity type affecting : unspecified obesity Trimester: third trimester Qualified Code(s): O99.213 - Obesity complicating , third trimester Comment: HgbA1c (4) History of miscarriage, currently : Status: Acute (5) Anxiety: Status: Acute (6) Mild depression: Status: Acute (7) Adopted: Status: Acute Comment: limited known family history (8) Marijuana use: Status: Acute Comment: positive at NOB, encouraged cessation, pt aware of random tox screens, Pt states uses 4 days/week in morning due to lack of appetite (9) History of pre-eclampsia in prior , currently : Status: Acute Comment: asa and pre e labs (10) Hx of gestational diabetes in prior , currently : Status: Acute Comment: early 1 hour gct (11) Supervision of high-risk : Status: Acute Qualifiers: Trimester: third trimester Qualified Code(s): O09.93 - Supervision of high risk , unspecified, third trimester Comment: PRR, , ANNA MARIE 02/06/25, PC Radames Powell, Andre- goes by Reuben (12) : Status: Acute Qualifiers: Weeks of gestation: 34 weeks Qualified Code(s): Z3A.34 - 34 weeks gestation of Comment: NIPT low risk (13) Previous section: Status: Acute (14) Pelvic floor dysfunction in female: Status: Acute (15) Allergy to adhesive tape: Status: Acute Orders: Orders POC Urinalysis Dip (Clinic) Today Dr. Evelin Cardona DO R10.2 - Pelvic and perineal pain CBC W/Diff, Automated Today Dr. Fadumo Zelaya MD O16.9 - Unspecified maternal hypertension, unspecified trimester Comprehensive Metabolic Profil Today Dr. Fadumo Zelaya MD O16.9 - Unspecified maternal hypertension, unspecified trimester Protein+Creatinine Ratio,Urine Today Dr. Fadumo Zelaya MD O16.9 - Unspecified maternal hypertension, unspecified trimester OB Biophysical Prof W/O NST Today Dr. Fadumo Zelaya MD O26.899 - Other specified related conditions, unspecified trimester, R51.9 - Headache, unspecified OB Biophysical Prof W/O NST Today Dr. Fadumo Zelaya MD O26.899 - Other specified related conditions, unspecified trimester, R51.9 - Headache, unspecified OB Biophysical Prof W/O NST Today Dr. Fadumo Zelaya MD O26.899 - Other specified related conditions, unspecified trimester, R51.9 - Headache, unspecified OB Biophysical Prof W/O NST Today Dr. Fadumo Zelaya MD O26.899 - Other specified related conditions, unspecified trimester, R51.9 - Headache, unspecified OB Biophysical Prof W/O NST Today Dr. Fadumo Zelaya MD O26.899 - Other specified related conditions, unspecified trimester, R51.9 - Headache, unspecified OB Biophysical Prof W/O NST Today Dr. Fadumo Zelaya MD O26.899 - Other specified related conditions, unspecified trimester, R51.9 - Headache, unspecified 12/26/24 1450 <Electronically signed by Fadumo osborn MD> Date _ Fadumo Zelaya MD Cosigner Signature: Date (if applicable) CC: ~ [employer] Work Phone: [phone]) [phone] Radiology Diagnostic study note [facility] Imaging Services [address] [place], [place] [id number] OB Limited With Biometrics MR#: [id number] Acct: [id number] Name: AZAEL SULTANA Rep #: [id number] : 2000 F 24 From: Guille Eugene MD PCP: MING Sagastume Status: REG C DEREK Study:OB Limited With Biometrics Date of Exam : 12/17/24 Exam# [id number] Ordering Dr: Marietta Ghosh CNM PROCEDURE: OB LIMITED WITH BIOMETRICS 12/17/2024 REASON FOR EXAM: 31WK GESTATION GROWTH US TECHNIQUE: OB LIMITED WITH BIOMETRICS COMPARISON: None FINDINGS Number: 1 Position: Vertex Placental Position: Anterior Placental Abnormalities: No evidence of previa. DIMENSIONS: Biparietal Diameter: 8 cm: 32 weeks and 1 day: 26th percentile/ Head Circumference: 30.7 cm: 34 weeks and 2 days: 53rd percentile/ Abdominal Circumference: 30.1 cm: 34 weeks and 1 day: 86 percentile/ Femur Length: 6.7 cm: 33 weeks and 2 days: 52nd percentile/ ESTIMATED WEIGHT: 2237 g plus/-336 g ESTIMATED WEIGHT PERCENTILE (24+ weeks): 69 ESTIMATED GESTATIONAL AGE: Baseline: 32 weeks and 5 days By Ultrasound: 33 weeks and 3 days ESTIMATED DATE OF DELIVERY: Baseline: February 06, 2025 By Ultrasound: February 01, 2025 BIOPHYSICAL ASSESSMENT: Amniotic Fluid Volume: 3.9 Amniotic Fluid Index: 10.5 (8-24 cm normal range) Cardiac Motion: 164 beats per minute (average) Trunk and Limb Motion: Present. MATERNAL ANATOMY: Adnexa: Neither maternal ovary is successfully identified. Cervical Length (if measured): 4 cm US/OB Limited With Biometrics IMPRESSION: Single live intrauterine gestation with a mean gestational age of 33 weeks and 3days. Reading Location: [place] [address] CC: RACHAEL Ghosh; MING Ruiz ~ Orientation And Mobility Specialist: Signed [facility]06-12-2025 [facility] [address], [address] [place] [address] OFFICE VISIT Date of Service: 12/11/24 MR#: [id number] Acct: [id number] Name: AZAEL SULTANA Rep #: [id number] : 2000 Provider: MING Blackmon Age/Sex: 24/F Location: [facility] Status: Signed Intake Vital Signs 07/03/24 13:01 11/11/24 15:03 12/11/24 15:51 12/11/24 15:58 Height 5 ft 3 in 5 ft 3 in 5 ft 3 in 5 ft 3 in Weight: 263 lb 4 oz BMI 46.6 BP 124/78 H Intake Visit Reasons: 32 WK OB Chief Complaint: 32 Week OB Cane Loader Required: No Is patient in pain?: No Allergies adhesive tape Allergy (Mild, Verified 12/11/24 15:49) Rash Medications ?Medication ?Instructions ?Recorded ?Confirmed ?Type multivit-min no.71-iron fum 28 300 cap PO DAILY pregna ncy 01/11/23 12/11/24 History mg-folate no.1 1 mg-dha 300 mg capsule (PNV-Clothier) ondansetron 4 mg disintegrating 4 mg PO Q4H PRN nausea and 06/18/24 12/11/24 Rx tablet vomiting #60 tabs metoclopramide HCl 10 mg tablet 10 mg PO TID nausea #9 0 tabs 08/27/24 12/11/24 Rx (Reglan) flash glucose scanning reader #1 ea 11/12/24 12/11/24 Rx (FreeStyle Dot 2 Jenners) flash glucose sensor (FreeStyle #1 ea 11/12/24 5 Rx Dot 2 Sensor kit) 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 sensor (FreeStyle #1 ea 12/03/24 5 Rx Dot 3 Sensor device) 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,hand gluer and slicer,cont #1 ea 12/03/24 12/11/24 Rx (FreeStyle Dot 3 Jenners) Last Menstrual Period: 05/02/24 Zika: Zika virus screening: Negative : No PFSH PFSH Medical History Seasonal allergies Hx of chlamydia infection Adopted Chlamydia infection affecting Anxiety Surgical History History of dental surgery Family History Mother Diabetes Grandfather Diabetes Social History adopted: Yes (limited family medical history known) household members: spouse, family and children number of children: 2 current occupational status: employed current occupation: [employer] current occupational exposures/hazards: No pets and animals: Yes pets and animals: dog(s) history of recent travel: No sexually active: Yes Smoking Status: Former smoker quit date: 10/30/22 how long ago did patient quit smokin year ago quit status: quit date established alcohol intake: former details: social drinking prior to substance use type: marijuana well-balanced diet: about half the time caffeine: Yes Type: carbonated beverages Number of servings: 1 eating out: 1-3 times/week during the past year weight has: increased > 10 lbs what type of physical activity do you participate in: none matt/adventist: None seatbelt use: always do you feel safe at home: Yes additional social history: Patient works at [employer]- Works at [employer] History 4 Elective abortions Hx Para 2 Spontaneous abortions 1 Hx # Term Pregnancies 2 Ectopic pregnancies Hx # Pregnancies Multiple births # of living children 2 Past Pregnancies Del. Date Name GA/Weeks Outcome Route Bth Weight Gen Labor Lgth Anesthesia Del Locatn Provider FOB 07/20/20 Andre 37 live - full term vacuum 8# 11oz Male [facility] Alex 08/20/23 Radameslizz Elizondo 38 live - full term 7lbs 8oz Male [facility] SM Delivery Date: 07/20/20 Last Updated by: Fadumo Zelaya MD IOL pre-eclampsia VAVD triple I, shoulder dystocia Delivery Date: 08/20/23 Last Updated by: Fadumo Zelaya MD secondary to shoulder dystocia with the first HPI 32 WK OB Details: AZAEL SULTANA is a 24 year old who presents for routine OB visit. OB Visit ANNA MARIE Calculator Estimated Delivery Date Method Current WG Current Estimate 02/06/25 LMP (Certain) 31w 6d Other Estimates 02/05/25 Ultrasound #1 32w 0d Expected Delivery Route/Plan Labor Preferences- CB/BF classes: n0 labor support person: Andre-adilene c section labor intervention preferences: [] pain management options preferred: [] cut cord/dad catch: [] : [] PP control planned: [] discussed possible routes of delivery and associated risks: [] special requests: [] Specific Issue/Plans Covid status: [] Flu vaccine: [] Tdap vaccine: given Rhogam: na LARC form signed: yes Problem list reviewed and updated with the most current plan of care details and appropriate ordersplaced. Relevant counseling for the gestational age provided. Continue routine care and follow up unless otherwise noted in visit notes/problem list details Initial Weight: 247 lb Date -?-?-?-?-?-?-?-?-?-?-?-?- EGA Weight BP Urine Prot -?-?-?-?-?-?-?-?-?-?-?-?- Glucose FHR FuHt Pres Dilation -?-?-?-?-?-?-?-?-?-?-?-?- Effaced St Visit Note 07/03/24 -?-?-?-?-?-?-?-?-?-?-?-?- 8w 6d 247 lb 6 oz (+6 oz) 127/78 -?-?-?-?-?-?-?-?-?-?-?-?- 174 -?-?-?-?-?-?-?-?-?-?-?-?- KW- CRL cons wit h dates. accepts NIPT. KW- CRL cons with dates. acc epts NIPT. planning early gct due to hx of GDM and obesity. will start asa at 12 weeks 08/01/24 -?-?-?-?-?-?-?-?-?-?-?-?- 13w 0d 250 lb 6 oz (+3 lb 6 oz) 124/83 Negative -?-?-?-?-?-?-?-?-?-?-?-?- Negative 150 -?-?-?-?-?-?-?-?-?-?-?--?- SM- no vb lof cr amping having trouble sleeping 08/27/24 -?-?-?-?-?-?-?-?-?-?-?-?- 16w 5d 255 lb 4 oz (+8 lb 4 oz) 135/82 -?-?-?-?-?-?-?-?-?-?-?-?- 150 -?-?-?-?-?-?-?-?-?-?-?-?- SM- having heada ches and dizziness, approve intermittent FMLA as needed for symptoms. discussed supprotive care ordered reglan. anatomy us ordered 10/02/24 -?-?-?-?-?-?-?-?-?-?-?-?- 21w 6d 258 lb 2 oz (+11 lb 2 oz) 122/82 -?-?-?-?-?-?-?-?-?-?-?-?- 150 -?-?-?-?-?-?-?-?-?-?-?-?- KW- no vb/crampi ng. +fm. no longer having headaches. US reviewed. growth US q 4 weeks- requesting to do them at [facility] because insurance lapsed. 10/31/24 -?-?-?-?-?-?-?-?-?-?-?-?- 26w 0d 264 lb 4 oz (+17 lb 4 oz) 129/84 Negative -?-?-?-?-?-?-?-?-?-?-?-?- Negative 145 -?-?-?-?-?-?-?-?-?-?-?-?- KW- no vb/lof/ct x. good fm. glucose info given for next visit. US scheduled for 11/1311/11/24 -?-?-?-?-?-?-?-?-?-?-?-?- 27w 4d 261 lb 8 oz (+14 lb 8 oz) 120/82 Negative -?-?-?-?-?-?-?-?-?-?-?-?- Negative 135 33 -?-?-?-?-?-?-?-?-?-?-?-?- KW- no vb/lof/ct x. good fm. glucose done. request for PFPT for pelvic pain. R c/s requested at 39 weeks-but wants to consider 12/11/24 -?-?-?-?-?-?-?-?-?-?-?-?- 31w 6d 263 lb 4 oz (+16 lb 4 oz) 124/78 -?-?-?-?-?-?-?-?-?-?-?-?- 152 34 -?-?-?-?-?-?-?-?-?-?-?-?- MH-NO VB, LOF. G ood FM. Growth Us ordered and gave number to call. Glucose readings not brought with her but states 2 hr pp running 150s. Sees Dr Vaughan early next week to discuss insulin. ACOG First Trimester First Trimester: Discussed Second Trimester Second Trimester: Signs and Symptoms of Labor, Selecting a care provider, Reproductive Life Planning & Contreception, Care Planning, Depression/Anxiety and Intimate Partner Violence; Discussed Tobacco Cessation Third Trimester Third Trimester: Pain Management Plans, Labor support person(s), Immediate Larc, Circumcision preference, Movement Monitoring, Signs and Symptoms of Preeclampsia, Feeding No and Family Medical Leave or Disability Forms; Discussed Tobacco Cessation ROS Const Reports system reviewed and no additional complaints, except as documented GI Denies abdominal pain, Denies nausea and Denies vomiting Exam Const General: cooperative Nutritional Appearance: well nourished GI Palpation: soft, nontender and other (gravid) Coding Level of Care Code Off vis,est,level 3 Diagnoses Supervision of high risk in third trimester O09.93 Trimester: third trimester 31 weeks gestation of Z3A.31 Weeks of gestation: 31 weeks Hx of gestational diabetes in prior , currently O09.299; Z86.32 History of pre-eclampsia in prior , currently O09.299 Marijuana use F12.90 Adopted Z02.82 Mild depression F32.A Anxiety F41.9 History of miscarriage, currently O09.299 Obesity affecting in third trimester, unspecified obesity type O99.213 Trimester: third trimester Obesity type affecting : unspecified obesity Circumvallate placenta in third trimester O43.113 Trimester: third trimester Gestational diabetes mellitus (GDM) affecting , antepartum O24.419 Previous section Z98.891 Pelvic floor dysfunction in female M62.89 Allergy to adhesive tape Z91.048 Assessment and Plan Assessment and Plan (1) Supervision of high-risk : Status: Acute Qualifiers: Trimester: third trimester Qualified Code(s): O09.93 - Supervision of high risk , unspecified, third trimester Comment: PRR, , ANNA MARIE 02[birth year], Radames Samuel, Andre- goes by Reuben (2) : Status: Acute Qualifiers: Weeks of gestation: 31 weeks Qualified Code(s): Z3A.31 - 31 weeks gestation of Comment: NIPT low risk (3) Hx of gestational diabetes in prior , currently : Status: Acute Comment: early 1 hour gct (4) History of pre-eclampsia in prior , currently : Status: Acute Comment: asa and pre e labs (5) Marijuana use: Status: Acute Comment: positive at NOB, encouraged cessation, pt aware of random tox screens, Pt states uses 4 days/week in morning due to lack of appetite (6) Adopted: Status: Acute Comment: limited known family history (7) Mild depression: Status: Acute (8) Anxiety: Status: Acute (9) History of miscarriage, currently : Status: Acute (10) Obesity affecting : Status: Acute Qualifiers: Trimester: third trimester Obesity type affecting : unspecified obesity Qualified Code(s):O99.213 - Obesity complicating , third trimester Comment: HgbA1c (11) Circumvallate placenta: Status: Acute Qualifiers: Trimester: third trimester Qualified Code(s): O43.113 - Circumvallate placenta, third trimester Comment: growth US Q4w (12) Gestational diabetes mellitus (GDM) affecting , antepartum: Status: Acute Comment: continuous monitoring/seeing Dr Vaughan. nutrition consult (13) Previous section: Status: Acute (14) Pelvic floor dysfunction in female: Status: Acute (15) Allergy to adhesive tape: Status: Acute Orders: Orders POC Urinalysis 2 Dip (Clinic) Today Plan problem list reviewed and updated for most current plan of care and appropriate orders placed. Relevant counseling for the gestational age appropriate provided and ACOG education checklist updated. Continue routine care and follow up. 12/11/24 1614 s INDUSTRIAL PSYCHOLOGY PROFESSOR INDUSTRIAL PSYCHOLOGY PROFESSOR-C> Date _ Anisa Blackmon INDUSTRIAL PSYCHOLOGY PROFESSOR INDUSTRIAL PSYCHOLOGY PROFESSOR-C Cosigner Signature: Date (if applicable) CC: ~ [facility]06-12-2025 Progress note Author Anisa Blackmon [facility] Note Date/Time December 11, 2024 4:14 pm [facility] [address], [address] [place] [address] OFFICE VISIT Date of Service: 12/11/24 MR#: [id number] Acct: [id number] Name: AZAEL SULTANA Rep #: [id number] : 2000 Provider: MING Blackmon Age/Sex: 24/F Location: [facility] Status: Signed Intake Vital Signs 07/03/24 13:01 11/11/24 15:03 12/11/24 15:51 12/11/24 15:58 Height 5 ft 3 in 5 ft 3 in 5 ft 3 in 5 ft 3 in Weight: 263 lb 4 oz BMI 46.6 BP 124/78 H Intake Visit Reasons: 32 WK OB Chief Complaint: 32 Week OB Cane Loader Required: No Is patient in pain?: No Allergies adhesive tape Allergy (Mild, Verified 12/11/24 15:49) Rash Medications ?Medication ?Instructions ?Recorded ?Confirmed ?Type multivit-min no.71-iron fum 28 300 cap PO DAILY pregna ncy 01/11/23 12/11/24 History mg-folate no.1 1 mg-dha 300 mg capsule (PNV-Clothier) ondansetron 4 mg disintegrating 4 mg PO Q4H PRN nausea and 06/18/24 12/11/24 Rx tablet vomiting #60 tabs metoclopramide HCl 10 mg tablet 10 mg PO TID nausea #9 0 tabs 08/27/24 12/11/24 Rx (Reglan) flash glucose scanning reader #1 ea 11/12/24 12/11/24 Rx (FreeStyle Dot 2 Jenners) flash glucose sensor (FreeStyle #1 ea 11/12/24 5 Rx Dot 2 Sensor kit) 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 sensor (FreeStyle #1 ea 12/03/24 5 Rx Dot 3 Sensor device) 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,hand gluer and slicer,cont #1 ea 12/03/24 12/11/24 Rx (FreeStyle Dot 3 Jenners) Last Menstrual Period: 05/02/24 Zika: Zika virus screening: Negative : No PFSH PFSH Medical History Seasonal allergies Hx of chlamydia infection Adopted Chlamydia infection affecting Anxiety Surgical History History of dental surgery Family History Mother Diabetes Grandfather Diabetes Social History adopted: Yes (limited family medical history known) household members: spouse, family and children number of children: 2 current occupational status: employed current occupation: [employer] current occupational exposures/hazards: No pets and animals: Yes pets and animals: dog(s) history of recent travel: No sexually active: Yes Smoking Status: Former smoker quit date: 10/30/22 how long ago did patient quit smokin year ago quit status: quit date established alcohol intake: former details: social drinking prior to substance use type: marijuana well-balanced diet: about half the time caffeine: Yes Type: carbonated beverages Number of servings: 1 eating out: 1-3 times/week during the past year weight has: increased > 10 lbs what type of physical activity do you participate in: none matt/adventist: None seatbelt use: always do you feel safe at home: Yes additional social history: Patient works at [employer]- Works at [employer] History 4 Elective abortions Hx Para 2 Spontaneous abortions 1 Hx # Term Pregnancies 2 Ectopic pregnancies Hx # Pregnancies Multiple births # of living children 2 Past Pregnancies Del. Date Name GA/Weeks Outcome Route Bth Weight Gen Labor Lgth Anesthesia Del Locatn Provider FOB 07/20/20 Andre 37 live - full term vacuum 8# 11oz Male [facility] Alex 08/20/23 Radames Elizondo 38 live - full term 7lbs 8oz Male [facility] SM Delivery Date: 07/20/20 Last Updated by: Fadumo Zelaya MD IOL pre-eclampsia VAVD triple I, shoulder dystocia Delivery Date: 08/20/23 Last Updated by: Fadumo Zelaya MD secondary to shoulder dystocia with the first HPI 32 WK OB Details: AZAEL SULTANA is a 24 year old who presents for routine OB visit. OB Visit ANNA MARIE Calculator Estimated Delivery Date Method Current WG Current Estimate 02/06/25 LMP (Certain) 31w 6d Other Estimates 02/05/25 Ultrasound #1 32w 0d Expected Delivery Route/Plan Labor Preferences- CB/BF classes: n0 labor support person: Marla c section labor intervention preferences: [] pain management options preferred: [] cut cord/dad catch: [] : [] PP control planned: [] discussed possible routes of delivery and associated risks: [] special requests: [] Specific Issue/Plans Covid status: [] Flu vaccine: [] Tdap vaccine: given Rhogam: na LARC form signed: yes Problem list reviewed and updated with the most current plan of care details and appropriate orders placed. Relevant counseling for the gestational age provided. Continue routine care and follow up unless otherwise noted in visit notes/problem list details Initial Weight: 247 lb Date -?-?-?-?-?-?-?-?-?-?-?-?- EGA Weight BP Urine Prot -?-?-?-?-?-?-?-?-?-?-?-?- Glucose FHR FuHt Pres Dilation -?-?-?-?-?-?-?-?-?-?-?-?- Effaced St Visit Note 07/03/24 -?-?-?-?-?-?-?-?-?-?-?-?- 8w 6d 247 lb 6 oz (+6 oz) 127/78 -?-?-?-?-?-?-?-?-?-?-?-?- 174 -?-?-?-?-?-?-?-?-?-?-?-?- KW- CRL cons wit h dates. accepts NIPT. KW- CRL cons with dates. acc epts NIPT. planning early gct due to hx of GDM and obesity. will start asa at 12 weeks 08/01/24 -?-?-?-?-?-?-?-?-?-?-?-?- 13w 0d 250 lb 6 oz (+3 lb 6 oz) 124/83 Negative -?-?-?-?-?-?-?-?-?-?-?-?- Negative 150 -?-?-?-?-?-?-?-?-?-?-?--?- SM- no vb lof cr amping having trouble sleeping 08/27/24 -?-?-?-?-?-?-?-?-?-?-?-?- 16w 5d 255 lb 4 oz (+8 lb 4 oz) 135/82 -?-?-?-?-?-?-?-?-?-?-?-?- 150 -?-?-?-?-?-?-?-?-?-?-?-?- SM- having heada ches and dizziness, approve intermittent FMLA as needed for symptoms. discussed supprotive care ordered reglan. anatomy us ordered 10/02/24 -?-?-?-?-?-?-?-?-?-?-?-?- 21w 6d 258 lb 2 oz (+11 lb 2 oz) 122/82 -?-?-?-?-?-?-?-?-?-?-?-?- 150 -?-?-?-?-?-?-?-?-?-?-?-?- KW- no vb/crampi ng. +fm. no longer having headaches. US reviewed. growth US q 4 weeks- requesting to do them at [facility] because insurance lapsed. 10/31/24 -?-?-?-?-?-?-?-?-?-?-?-?- 26w 0d 264 lb 4 oz (+17 lb 4 oz) 129/84 Negative -?-?-?-?-?-?-?-?-?-?-?-?- Negative 145 -?-?-?-?-?-?-?-?-?-?-?-?- KW- no vb/lof/ct x. good fm. glucose info given for next visit. US scheduled for 11/1311/11/24 -?-?-?-?-?-?-?-?-?-?-?-?- 27w 4d 261 lb 8 oz (+14 lb 8 oz) 120/82 Negative -?-?-?-?-?-?-?-?-?-?-?-?- Negative 135 33 -?-?-?-?-?-?-?-?-?-?-?-?- KW- no vb/lof/ct x. good fm. glucose done. request for PFPT for pelvic pain. R c/s requested at 39 weeks-but wants to consider 12/11/24 -?-?-?-?-?-?-?-?-?-?-?-?- 31w 6d 263 lb 4 oz (+16 lb 4 oz) 124/78 -?-?-?-?-?-?-?-?-?-?-?-?- 152 34 -?-?-?-?-?-?-?-?-?-?-?-?- MH-NO VB, LOF. G ood FM. Growth Us ordered and gave number to call. Glucose readings not brought with her but states 2 hr pp running 150s. Sees Dr Vaughan early next week to discuss insulin. ACOG First Trimester First Trimester: Discussed Second Trimester Second Trimester: Signs and Symptoms of Labor, Selecting a care provider, Reproductive Life Planning & Contreception, Care Planning, Depression/Anxiety and Intimate Partner Violence; Discussed Tobacco Cessation Third Trimester Third Trimester: Pain Management Plans, Labor support person(s), Immediate Larc, Circumcision preference, Movement Monitoring, Signs and Symptoms of Preeclampsia, Feeding No and Family Medical Leave or Disability Forms; Discussed Tobacco Cessation ROS Const Reports system reviewed and no additional complaints, except as documented GI Denies abdominal pain, Denies nausea and Denies vomiting Exam Const General: cooperative Nutritional Appearance: well nourished GI Palpation: soft, nontender and other (gravid) Coding Level of Care Code Off vis,est,level 3 Diagnoses Supervision of high risk in third trimester O09.93 Trimester: third trimester 31 weeks gestation of Z3A.31 Weeks of gestation: 31 weeks Hx of gestational diabetes in prior , currently O09.299; Z86.32 History of pre-eclampsia in prior , currently O09.299 Marijuana use F12.90 Adopted Z02.82 Mild depression F32.A Anxiety F41.9 History of miscarriage, currently O09.299 Obesity affecting in third trimester, unspecified obesity type O99.213 Trimester: third trimester Obesity type affecting : unspecified obesity Circumvallate placenta in third trimester O43.113 Trimester: third trimester Gestational diabetes mellitus (GDM) affecting , antepartum O24.419 Previous section Z98.891 Pelvic floor dysfunction in female M62.89 Allergy to adhesive tape Z91.048 Assessment and Plan Assessment and Plan (1) Supervision of high-risk : Status: Acute Qualifiers: Trimester: third trimester Qualified Code(s): O09.93 - Supervision of high risk , unspecified, third trimester Comment: PRR, , ANNA MARIE 02/06/25, PC Radames Powell, Andre- goes by Reuben (2) : Status: Acute Qualifiers: Weeks of gestation: 31 weeks Qualified Code(s): Z3A.31 - 31 weeks gestation of Comment: NIPT low risk (3) Hx of gestational diabetes in prior , currently : Status: Acute Comment: early 1 hour gct (4) History of pre-eclampsia in prior , currently : Status: Acute Comment: asa and pre e labs (5) Marijuana use: Status: Acute Comment: positive at NOB, encouraged cessation, pt aware of random tox screens, Pt states uses 4 days/week in morning due to lack of appetite (6) Adopted: Status: Acute Comment: limited known family history (7) Mild depression: Status: Acute (8) Anxiety: Status: Acute (9) History of miscarriage, currently : Status: Acute (10) Obesity affecting : Status: Acute Qualifiers: Trimester: third trimester Obesity type affecting : unspecified obesity Qualified Code(s): O99.213 - Obesity complicating , third trimester Comment: HgbA1c (11) Circumvallate placenta: Status: Acute Qualifiers: Trimester: third trimester Qualified Code(s): O43.113 - Circumvallate placenta, third trimester Comment: growth US Q4w (12) Gestational diabetes mellitus (GDM) affecting , antepartum: Status: Acute Comment: continuous monitoring/seeing Dr Vaughan. nutrition consult (13) Previous section: Status: Acute (14) Pelvic floor dysfunction in female: Status: Acute (15) Allergy to adhesive tape: Status: Acute Orders: Orders POC Urinalysis 2 Dip (Clinic) Today Plan problem list reviewed and updated for most current plan of care and appropriate orders placed. Relevant counseling for the gestational age appropriate provided and ACOG education checklist updated. Continue routine care and follow up. 12/11/24 1614 <Electronically signed by Anisa rueda INDUSTRIAL PSYCHOLOGY PROFESSOR INDUSTRIAL PSYCHOLOGY PROFESSOR-C> Date _ Anisa Blackmon INDUSTRIAL PSYCHOLOGY PROFESSOR INDUSTRIAL PSYCHOLOGY PROFESSOR-C Cosigner Signature: Date (if applicable) CC: ~ [facility] [employer] Work Phone: [phone] Progress [facility] [address], [address] [place] [address] OFFICE VISIT Date of Service: 11/11/24 MR#: [id number] Acct: [id number] Name: AZAEL SULTANA Rep #: [id number] : 2000 Provider: RACHAEL Ghosh Age/Sex: 24/F Location: [facility] Status: Signed Intake Vital Signs 10/31/24 14:10 11/11/24 15:03 Height 5 ft 3 in 5 ft 3 in Weight: 264 lb 4 oz 261 lb 8 oz BMI 46.7 46.3 BP 129/84 H 120/82 H Intake Visit Reasons: 28 wk ob/glucose Chief Complaint: 28wk OB Cane Loader Required: No Is patient in pain?: No Allergies adhesive tape Allergy (Mild, Verified 11/11/24 15:01) Rash Medications ?Medication ?Instructions ?Recorded ?Confirmed ?Type multivit-min no.71-iron fum 28 300 cap PO DAILY pregna ncy 01/11/23 11/11/24 History mg-folate no.1 1 mg-dha 300 mg capsule (PNV-Clothier) ondansetron 4 mg disintegrating 4 mg PO Q4H PRN nausea and 06/18/24 11/11/24 Rx tablet vomiting #60 tabs metoclopramide HCl 10 mg tablet 10 mg PO TID nausea #9 0 tabs 08/27/24 11/11/24 Rx (Reglan) Last Menstrual Period: 05/02/24 : No Have you fallen in the past year?: No PFSH PFSH Medical History Seasonal allergies Hx of chlamydia infection Adopted Chlamydia infection affecting Anxiety Surgical History History of dental surgery Family History Mother Diabetes Grandfather Diabetes Social History adopted: Yes (limited family medical history known) household members: spouse, family and children number of children: 2 current occupational status: employed current occupation: [employer] current occupational exposures/hazards: No pets and animals: Yes pets and animals: dog(s) history of recent travel: No sexually active: Yes Smoking Status: Former smoker quit date: 10/30/22 how long ago did patient quit smokin year ago quit status: quit date established alcohol intake: former details: social drinking prior to substance use type: marijuana well-balanced diet: about half the time caffeine: Yes Type: carbonated beverages Number of servings: 1 eating out: 1-3 times/week during the past year weight has: increased > 10 lbs what type of physical activity do you participate in: none matt/adventist: None seatbelt use: always do you feel safe at home: Yes additional social history: Patient works at [employer]- Works at [employer] History 4 Elective abortions Hx Para 2 Spontaneous abortions 1 Hx # Term Pregnancies 2 Ectopic pregnancies Hx # Pregnancies Multiple births # of living children 2 Past Pregnancies Del. Date Name GA/Weeks Outcome Route Bth Weight Infant Gen Labor Lgth Anesthesia Del Locatn Provider FOB 07/20/20 Andre 37 live - full term vacuum 8# 11oz Male [facility] Alex 08/20/23 Radames Elizondo 38 live - full term 7lbs 8oz Male [facility] SM Delivery Date: 07/20/20 Last Updated by: Fadumo Zelaya MD IOL pre-eclampsia VAVD triple I, shoulder dystocia Delivery Date: 08/20/23 Last Updated by: Fadumo Zelaya MD secondary to shoulder dystocia with the first HPI 28 wk ob/glucose Details: AZAEL SULTANA is a 24 year old who presents for routine OB visit. OB Visit ANNA MARIE Calculator Estimated Delivery Date Method Current WG Current Estimate 02/06/25 LMP (Certain) 27w 4d Other Estimates 02/05/25 Ultrasound #1 27w 5d Expected Delivery Route/Plan Labor Preferences- CB/BF classes: [] labor support person: [] labor intervention preferences: [] pain management options preferred: [] cut cord/dad catch: [] : [] PP control planned: [] discussed possible routes of delivery and associated risks: [] special requests: [] Specific Issue/Plans Covid status: [] Flu vaccine: [] Tdap vaccine: [] Rhogam: [] LARC form signed: [] Problem list reviewed and updated with the most current plan of care details and appropriate ordersplaced. Relevant counseling for the gestational age provided. Continue routine care and follow up unless otherwise noted in visit notes/problem list details Initial Weight: 247 lb Date -?-?-?-?-?-?-?-?-?-?-?-?- EGA Weight BP Urine Prot -?-?-?-?-?-?-?-?-?-?-?-?- Glucose FHR FuHt Pres Dilation -?-?-?-?-?-?-?-?-?-?-?-?- Effaced St Visit Note 07/03/24 -?-?-?-?-?-?-?-?-?-?-?-?- 8w 6d 247 lb 6 oz (+6 oz) 127/78 -?-?-?-?-?-?-?-?-?-?-?-?- 174 -?-?-?-?-?-?-?-?-?-?-?-?- KW- CRL cons wit h dates. accepts NIPT. KW- CRL cons with dates. acc epts NIPT. planning early gct due to hx of GDM and obesity. will start asa at 12 weeks 08/01/24 -?-?-?-?-?-?-?-?-?-?-?-?- 13w 0d 250 lb 6 oz (+3 lb 6 oz) 124/83 Negative -?-?-?-?-?-?-?-?-?-?-?-?- Negative 150 -?-?-?-?-?-?-?-?-?-?-?-?- SM- no vb lof cr amping having trouble sleeping 08/27/24 -?-?-?-?-?-?-?-?-?-?-?-?- 16w 5d 255 lb 4 oz (+8 lb 4 oz) 135/82 -?-?-?-?-?-?-?-?-?-?-?-?- 150 -?-?-?-?-?-?-?-?-?-?-?-?- SM- having heada ches and dizziness, approve intermittent FMLA as needed for symptoms. discussed supprotive care ordered reglan. anatomy us ordered 10/02/24 -?-?-?-?-?-?-?-?-?-?-?-?- 21w 6d 258 lb 2 oz (+11 lb 2 oz) 122/82 -?-?-?-?-?-?-?-?-?-?-?-?- 150 -?-?-?-?-?-?-?-?-?-?-?-?- KW- no vb/crampi ng. +fm. no longer having headaches. US reviewed. growth US q 4 weeks- requesting to do them at [facility] because insurance lapsed. 10/31/24 -?-?-?-?-?-?-?-?-?-?-?--?- 26w 0d 264 lb 4 oz (+17 lb 4 oz) 129/84 Negative -?-?-?-?-?-?-?-?-?-?-?-?- Negative 145 -?-?-?-?-?-?-?-?-?-?-?-?- KW- no vb/lof/ct x. good fm. glucose info given for next visit. US scheduled for 11/1311/11/24 -?-?-?-?-?-?-?-?-?-?-?-?- 27w 4d 261 lb 8 oz (+14 lb 8 oz) 120/82 Negative -?-?-?-?-?-?-?-?-?-?-?-?- Negative 135 33 -?-?-?-?-?-?-?-?-?-?-?-?- KW- no vb/lof/ct x. good fm. glucose done. request for PFPT for pelvic pain. R c/s requested at 39 weeks-but wants to consider ACOG First Trimester First Trimester: Discussed Second Trimester Second Trimester: Signs and Symptoms of Labor, Selecting a care provider, Reproductive Life Planning & Contreception, Care Planning, Depression/Anxiety and Intimate Partner Violence; Discussed Tobacco Cessation Third Trimester Third Trimester: Pain Management Plans, Labor support person(s), Immediate Larc, Circumcision preference, Movement Monitoring, Signs and Symptoms of Preeclampsia, Infant Feeding No and Family Medical Leave or Disability Forms; Discussed Tobacco Cessation ROS Const Reports system reviewed and no additional complaints, except as documented Eyes Reports system reviewed and no additional complaints, except as documented ENT Reports system reviewed and no additional complaints, except as documented Card Reports system reviewed and no additional complaints, except as documented Resp Reports system reviewed and no additional complaints, except as documented GI Reports system reviewed and no additional complaints, except as documented, Denies nausea and Denies vomiting Reports system reviewed and no additional complaints, except as documented Musc Reports system reviewed and no additional complaints, except as documented Skin/Breast Reports system reviewed and no additional complaints, except as documented Neuro Yes system reviewed and no additional complaints, except as documented Psych Reports system reviewed and no additional complaints, except as documented Endo Reports system reviewed and no additional complaints, except as documented [place]/Lymph Reports system reviewed and no additional complaints, except as documented Aller/Immun Reports system reviewed and no additional complaints, except as documented Exam Const General: cooperative, healthy appearing and no acute distress Orientation: alert, awake and oriented x3 Neck Neck: normal visual inspection and full ROM Resp Effort & Inspection: normal respiratory effort, able to speak in complete sentences and symmetric chest movement GI Inspection: normal to inspection Palpation: soft and other Other: gravid Skin General: no rashes or lesions noted Neuro General: patient alert, patient awake and patient oriented x3 Cognition: normal cognition Speech: speech normal Gait: normal gait Motor: muscle tone normal throughout Extrem General: normal to inspection and full ROM Psych Appearance: grossly normal Mental Status: mental status grossly normal Mood: congruent mood Affect: normal affect Speech and Movement: speech and movement normal Attitude: cooperative Thought Process: normal Thought Content: normal Judgment: judgment good Results POC Urinalysis 2 Dip (Clinic) Office Urine Glucose Negative Last Edit by Ysabel Callahan on 11/11/24 15:13 Office Urine Protein Negative Last Edit by Ysabel Callahan on 11/11/24 15:13 Coding Level of Care Code Off vis,est,level 3 Diagnoses 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 History of miscarriage, currently O09.299 Anxiety F41.9 Mild depression F32.A Obesity affecting O99.210 Marijuana use F12.90 Adopted Z02.82 History of pre-eclampsia in prior , currently O09.299 Hx of gestational diabetes in prior , currently O09.299; Z86.32 Supervision of high-risk O09.90 27 weeks gestation of Z3A.27 Weeks of gestation: 27 weeks Previous section Z98.891 Pelvic floor dysfunction in female M62.89 Allergy to adhesive tape Z91.048 Assessment and Plan Assessment and Plan (1) Circumvallate placenta: Status: Acute Comment: growth US Q4w (2) History of miscarriage, currently : Status: Acute (3) Anxiety: Status: Acute (4) Mild depression: Status: Acute (5) Obesity affecting : Status: Acute Comment: HgbA1c (6) Marijuana use: Status: Acute Comment: positive at NOB, encouraged cessation, pt aware of random tox screens, Pt states uses 4 days/week in morning due to lack of appetite (7) Adopted: Status: Acute Comment: limited known family history (8) History of pre-eclampsia in prior , currently : Status: Acute Comment: asa and pre e labs (9) Hx of gestational diabetes in prior , currently : Status: Acute Comment: early 1 hour gct (10) Supervision of high-risk : Status: Acute Comment: PRR, , ANNA MARIE 02/06/25, PC Radames Powell, Andre- goes by Reuben (11) : Status: Acute Qualifiers: Weeks of gestation: 27 weeks Qualified Code(s): Z3A.27 - 27 weeks gestation of Comment: NIPT low risk (12) Previous section: Status: Acute (13) Pelvic floor dysfunction in female: Status: Acute (14) Allergy to adhesive tape: Status: Acute Orders: Orders POC Urinalysis 2 Dip (Clinic) Today Plan Details Additional Comments: ACOG trimester education reviewed and updated. see problem list details for updated plan management information and see below for orders placed atthis visit. GA appropriate handout given. Clinical Quality Measures Falls Risk Screening/Assistive Devices Have you fallen in the past year?: No 11/11/24 1527 s LIONELM> Date _ Marietta Ghosh CNM Cosigner Signature: Date (if applicable) CC: ~ [facility]05-13-2025 Progress note Author Marietta Ghosh [facility] Note Date/Time November 11, 2024 3:27p [facility] [address] [place] [address], [address] [place] [address] OFFICE VISIT Date of Service: 11/11/24 MR#: [id number] Acct: [id number] Name: KAYYAZAEL MUÑOZ Rep #: [id number] : 2000 Provider: RACHAEL Ghosh Age/Sex: 24/F Location: [facility] Status: Signed Intake Vital Signs 10/31/24 14:10 11/11/24 15:03 Height 5 ft 3 in 5 ft 3 in Weight: 264 lb 4 oz 261 lb 8 oz BMI 46.7 46.3 BP 129/84 H 120/82 H Intake Visit Reasons: 28 wk ob/glucose Chief Complaint: 28wk OB Cane Loader Required: No Is patient in pain?: No Allergies adhesive tape Allergy (Mild, Verified 11/11/24 15:01) Rash Medications ?Medication ?Instructions ?Recorded ?Confirmed ?Type multivit-min no.71-iron fum 28 300 cap PO DAILY pregna ncy 01/11/23 11/11/24 History mg-folate no.1 1 mg-dha 300 mg capsule (PNV-Clothier) ondansetron 4 mg disintegrating 4 mg PO Q4H PRN nausea and 06/18/24 11/11/24 Rx tablet vomiting #60 tabs metoclopramide HCl 10 mg tablet 10 mg PO TID nausea #9 0 tabs 08/27/24 11/11/24 Rx (Reglan) Last Menstrual Period: 05/02/24 : No Have you fallen in the past year?: No PFSH PFSH Medical History Seasonal allergies Hx of chlamydia infection Adopted Chlamydia infection affecting Anxiety Surgical History History of dental surgery Family History Mother Diabetes Grandfather Diabetes Social History adopted: Yes (limited family medical history known) household members: spouse, family and children number of children: 2 current occupational status: employed current occupation: [employer] current occupational exposures/hazards: No pets and animals: Yes pets and animals: dog(s) history of recent travel: No sexually active: Yes Smoking Status: Former smoker quit date: 10/30/22 how long ago did patient quit smokin year ago quit status: quit date established alcohol intake: former details: social drinking prior to substance use type: marijuana well-balanced diet: about half the time caffeine: Yes Type: carbonated beverages Number of servings: 1 eating out: 1-3 times/week during the past year weight has: increased > 10 lbs what type of physical activity do you participate in: none matt/adventist: None seatbelt use: always do you feel safe at home: Yes additional social history: Patient works at [employer]- Works at [employer] History 4 Elective abortions Hx Para 2 Spontaneous abortions 1 Hx # Term Pregnancies 2 Ectopic pregnancies Hx # Pregnancies Multiple births # of living children 2 Past Pregnancies Del. Date Name GA/Weeks Outcome Route Bth Weight Infant Gen Labor Lgth Anesthesia Del Locatn Provider FOB 07/20/20 Andre 37 live - full term vacuum 8# 11oz Male [facility] Alex 08/20/23 Radames Elizondo 38 live - full term 7lbs 8oz Male [facility] SM Delivery Date: 07/20/20 Last Updated by: Fadumo Zelaya MD IOL pre-eclampsia VAVD triple I, shoulder dystocia Delivery Date: 08/20/23 Last Updated by: Fadumo Zelaya MD secondary to shoulder dystocia with the first HPI 28 wk ob/glucose Details: AZAEL SULTANA is a 24 year old who presents for routine OB visit. OB Visit ANNA MARIE Calculator Estimated Delivery Date Method Current WG Current Estimate 02/06/25 LMP (Certain) 27w 4d Other Estimates 02/05/25 Ultrasound #1 27w 5d Expected Delivery Route/Plan Labor Preferences- CB/BF classes: [] labor support person: [] labor intervention preferences: [] pain management options preferred: [] cut cord/dad catch: [] : [] PP control planned: [] discussed possible routes of delivery and associated risks: [] special requests: [] Specific Issue/Plans Covid status: [] Flu vaccine: [] Tdap vaccine: [] Rhogam: [] LARC form signed: [] Problem list reviewed and updated with the most current plan of care details and appropriate orders placed. Relevant counseling for the gestational age provided. Continue routine care and follow up unless otherwise noted in visit notes/problem list details Initial Weight: 247 lb Date -?-?-?-?-?-?-?-?-?-?-?-?- EGA Weight BP Urine Prot -?-?-?-?-?-?-?-?-?-?-?-?- Glucose FHR FuHt Pres Dilation -?-?-?-?-?-?-?-?-?-?-?-?- Effaced St Visit Note 07/03/24 -?-?-?-?-?-?-?-?-?-?-?-?- 8w 6d 247 lb 6 oz (+6 oz) 127/78 -?-?-?-?-?-?-?-?-?-?-?-?- 174 -?-?-?-?-?-?-?-?-?-?-?-?- KW- CRL cons wit h dates. accepts NIPT. KW- CRL cons with dates. acc epts NIPT. planning early gct due to hx of GDM and obesity. will start asa at 12 weeks 08/01/24 -?-?-?-?-?-?-?-?-?-?-?-?- 13w 0d 250 lb 6 oz (+3 lb 6 oz) 124/83 Negative -?-?-?-?-?-?-?-?-?-?-?-?- Negative 150 -?-?-?-?-?-?-?-?-?-?-?-?- SM- no vb lof cr amping having trouble sleeping 08/27/24 -?-?-?-?-?-?-?-?-?-?-?-?- 16w 5d 255 lb 4 oz (+8 lb 4 oz) 135/82 -?-?-?-?-?-?-?-?-?-?-?-?- 150 -?-?-?-?-?-?-?-?-?-?-?-?- SM- having heada ches and dizziness, approve intermittent FMLA as needed for symptoms. discussed supprotive care ordered reglan. anatomy us ordered 10/02/24 -?-?-?-?-?-?-?-?-?-?-?-?- 21w 6d 258 lb 2 oz (+11 lb 2 oz) 122/82 -?-?-?-?-?-?-?-?-?-?-?-?- 150 -?-?-?-?-?-?-?-?-?-?-?-?- KW- no vb/crampi ng. +fm. no longer having headaches. US reviewed. growth US q 4 weeks- requesting to do them at [facility] because insurance lapsed. 10/31/24 -?-?-?-?-?-?-?-?-?-?-?--?- 26w 0d 264 lb 4 oz (+17 lb 4 oz) 129/84 Negative -?-?-?-?-?-?-?-?-?-?-?-?- Negative 145 -?-?-?-?-?-?-?-?-?-?-?-?- KW- no vb/lof/ct x. good fm. glucose info given for next visit. US scheduled for 11/1311/11/24 -?-?-?-?-?-?-?-?-?-?-?-?- 27w 4d 261 lb 8 oz (+14 lb 8 oz) 120/82 Negative -?-?-?-?-?-?-?-?-?-?-?-?- Negative 135 33 -?-?-?-?-?-?-?-?-?-?-?-?- KW- no vb/lof/ct x. good fm. glucose done. request for PFPT for pelvic pain. R c/s requested at 39 weeks-but wants to consider ACOG First Trimester First Trimester: Discussed Second Trimester Second Trimester: Signs and Symptoms of Labor, Selecting a care provider, Reproductive Life Planning & Contreception, Care Planning, Depression/Anxiety and Intimate Partner Violence; Discussed Tobacco Cessation Third Trimester Third Trimester: Pain Management Plans, Labor support person(s), Immediate Larc, Circumcision preference, Movement Monitoring, Signs and Symptoms of Preeclampsia, Feeding No and Family Medical Leave or Disability Forms; Discussed Tobacco Cessation ROS Const Reports system reviewed and no additional complaints, except as documented Eyes Reports system reviewed and no additional complaints, except as documented ENT Reports system reviewed and no additional complaints, except as documented Card Reports system reviewed and no additional complaints, except as documented Resp Reports system reviewed and no additional complaints, except as documented GI Reports system reviewed and no additional complaints, except as documented, Denies nausea and Denies vomiting Reports system reviewed and no additional complaints, except as documented Musc Reports system reviewed and no additional complaints, except as documented Skin/Breast Reports system reviewed and no additional complaints, except as documented Neuro Yes system reviewed and no additional complaints, except as documented Psych Reports system reviewed and no additional complaints, except as documented Endo Reports system reviewed and no additional complaints, except as documented Cruzito/Lymph Reports system reviewed and no additional complaints, except as documented Aller/Immun Reports system reviewed and no additional complaints, except as documented Exam Const General: cooperative, healthy appearing and no acute distress Orientation: alert, awake and oriented x3 Neck Neck: normal visual inspection and full ROM Resp Effort & Inspection: normal respiratory effort, able to speak in complete sentences and symmetric chest movement GI Inspection: normal to inspection Palpation: soft and other Other: gravid Skin General: no rashes or lesions noted Neuro General: patient alert, patient awake and patient oriented x3 Cognition: normal cognition Speech: speech normal Gait: normal gait Motor: muscle tone normal throughout Extrem General: normal to inspection and full ROM Psych Appearance: grossly normal Mental Status: mental status grossly normal Mood: congruent mood Affect: normal affect Speech and Movement: speech and movement normal Attitude: cooperative Thought Process: normal Thought Content: normal Judgment: judgment good Results POC Urinalysis 2 Dip (Clinic) Office Urine Glucose Negative Last Edit by Ysabel Callahan on 11/11/24 15:13 Office Urine Protein Negative Last Edit by Ysabel Callahan on 11/11/24 15:13 Coding Level of Care Code Off vis,est,level 3 Diagnoses 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 History of miscarriage, currently O09.299 Anxiety F41.9 Mild depression F32.A Obesity affecting O99.210 Marijuana use F12.90 Adopted Z02.82 History of pre-eclampsia in prior , currently O09.299 Hx of gestational diabetes in prior , currently O09.299; Z86.32 Supervision of high-risk O09.90 27 weeks gestation of Z3A.27 Weeks of gestation: 27 weeks Previous section Z98.891 Pelvic floor dysfunction in female M62.89 Allergy to adhesive tape Z91.048 Assessment and Plan Assessment and Plan (1) Circumvallate placenta: Status: Acute Comment: growth US Q4w (2) History of miscarriage, currently : Status: Acute (3) Anxiety: Status: Acute (4) Mild depression: Status: Acute (5) Obesity affecting : Status: Acute Comment: HgbA1c (6) Marijuana use: Status: Acute Comment: positive at NOB, encouraged cessation, pt aware of random tox screens, Pt states uses 4 days/week in morning due to lack of appetite (7) Adopted: Status: Acute Comment: limited known family history (8) History of pre-eclampsia in prior , currently : Status: Acute Comment: asa and pre e labs (9) Hx of gestational diabetes in prior , currently : Status: Acute Comment: early 1 hour gct (10) Supervision of high-risk : Status: Acute Comment: PRR, , ANNA MARIE 02/06/25, PC Radames Powell, Andre- goes by Reuben (11) : Status: Acute Qualifiers: Weeks of gestation: 27 weeks Qualified Code(s): Z3A.27 - 27 weeks gestation of Comment: NIPT low risk (12) Previous section: Status: Acute (13) Pelvic floor dysfunction in female: Status: Acute (14) Allergy to adhesive tape: Status: Acute Orders: Orders POC Urinalysis 2 Dip (Clinic) Today Plan Details Additional Comments: ACOG trimester education reviewed and updated. see problem list details for updated plan management information and see below for orders placed at this visit. GA appropriate handout given. Clinical Quality Measures Falls Risk Screening/Assistive Devices Have you fallen in the past year?: No 11/11/24 1527 <Electronically signed by Marietta rueda CNM> Date _ Marietta Ghosh CNM Cosigner Signature: Date (if applicable) CC: ~ [employer] Work Phone: 1(210) 530-668504-03-2025 Evaluation note* Diagnosis Onset Date Resolution Status Admit Date Adopted acute October 02 2:52pm Allergy to adhesive tape acute October 02, 2024 2:52pm Anxiety acute October 02 2:52pm Circumvallate placenta acute Ap 2024 2:52pm History of miscarriage, currently acute October 02 2:52pm History of pre-eclampsia in prior , currently acute October 02, 2024 2:52pm Hx of gestational diabetes i n prior , currently acute October 02, 2024 2:52pm Marijuana use acute October 02, 2024 2:52pm Mild depression acute September 2:52pm Obesity affecting acute October 02, 2024 2:52pm Pelvic floor dysfunction in female acute October 02, 2024 2:52pm acute October 02 2:52pm Previous section acute October 02, 2024 2:52pm Supervision of high-risk acute October 02, 2024 2:52pm Adopted acute October 31, 2024 2:01pm Allergy to adhesive tape acute October 31, 2024 2:01pm Anxiety acute October 31, 2024 2:01pm Circumvallate placenta acute Ma y 2024 2:01pm History of miscarriage, currently acute October 31, 2024 2:01pm History of pre-eclampsia in prior , currently acute October 31, 2024 2: 01pm Hx of gestational diabetes i n prior , currently acute October 31, 2024 2: 01pm Marijuana use acute October 31 2:01pm Mild depression acute October 31, 2024 2:01pm Obesity affecting acute October 31, 2024 2:01pm Pelvic floor dysfunction in female acute October 31, 2024 2: 01pm acute October 31, 2024 2:01pm Previous section acute October 31, 2024 2:01pm Supervision of high-risk acute October 31, 2024 2: 01pm Adopted acute November 11, 2024 2:55pm Allergy to adhesive tape acute November 11, 2024 2:55pm Anxiety acute November 11, 2024 2:55pm Circumvallate placenta acute Ma y 2024 2:55pm History of miscarriage, currently acute November 11 2:55pm History of pre-eclampsia in prior , currently acute November 11, 2024 2 :55pm Hx of gestational diabetes i n prior , currently acute November 11, 2024 2 :55pm Marijuana use acute November 11, 2 025 2:55pm Mild depression acute November 11, 2024 2:55pm Obesity affecting acute November 11, 2024 2:55pm Pelvic floor dysfunction in female acute November 11, 2024 2 :55pm acute November 11, 2024 2:55pm Previous section acute November 11, 2024 2:55pm Supervision of high-risk acute November 11, 2024 2 :55pm Adopted acute December 11 3:47pm Allergy to adhesive tape acute December 11, 2024 3:47pm Anxiety acute December 11 3:47pm Circumvallate placenta acute Ju 2024 3:47pm Gestational diabetes mellitu s (GDM) affecting , antepartum acute December 11, 2024 3:47pm History of miscarriage, currently acute December 11 3:47pm History of pre-eclampsia in prior , currently acute December 11, 2024 3:47pm Hx of gestational diabetes i n prior , currently acute December 11, 2024 3:47pm Marijuana use acute December 11, 2024 3:47pm Mild depression acute November 3:47pm Obesity affecting acute December 11, 2024 3:47pm Pelvic floor dysfunction in female acute December 11, 2024 3:47pm acute December 11 3:47pm Previous section acute December 11, 2024 3:47pm Supervision of high-risk acute December 11, 2024 3:47pm Gestational diabetes mellitu s (GDM) affecting , antepartum acute December 16, 2024 10:37am Adopted acute December 26 2:34pm Allergy to adhesive tape acute December 26, 2024 2:34pm Anxiety acute December 26 2:34pm Circumvallate placenta acute 2024 2:34pm Gestational diabetes mellitu s (GDM) affecting , antepartum acute December 26, 2024 2:34pm History of miscarriage, currently acute December 26 2:34pm History of pre-eclampsia in prior , currently acute December 26, 2024 2:34pm Hx of gestational diabetes i n prior , currently acute December 26, 2024 2:34pm Marijuana use acute December 26, 2024 2:34pm Mild depression acute November 2:34pm Obesity affecting acute December 26, 2024 2:34pm Pelvic floor dysfunction in female acute December 26, 2024 2:34pm acute December 26 2:34pm Previous section acute December 26, 2024 2:34pm Supervision of high-risk acute December 26, 2024 2:34pm [employer] Work Phone: 1(313) 574-345704-03-2025 Evaluation note* Diagnosis Onset Date Resolution Status Admit Date Adopted acute October 02 2:52pm Allergy to adhesive tape acute October 02, 2024 2:52pm Anxiety acute October 02 2:52pm Circumvallate placenta acute Ap 2024 2:52pm History of miscarriage, currently acute October 02 2:52pm History of pre-eclampsia in prior , currently acute October 02, 2024 2:52pm Hx of gestational diabetes i n prior , currently acute October 02, 2024 2:52pm Marijuana use acute October 02, 2024 2:52pm Mild depression acute September 2:52pm Obesity affecting acute October 02, 2024 2:52pm Pelvic floor dysfunction in female acute October 02, 2024 2:52pm acute October 02 2:52pm Previous section acute October 02, 2024 2:52pm Supervision of high-risk acute October 02, 2024 2:52pm Adopted acute October 31, 2024 2:01pm Allergy to adhesive tape acute October 31, 2024 2:01pm Anxiety acute October 31, 2024 2:01pm Circumvallate placenta acute Ma y 2024 2:01pm History of miscarriage, currently acute October 31, 2024 2:01pm History of pre-eclampsia in prior , currently acute October 31, 2024 2: 01pm Hx of gestational diabetes i n prior , currently acute October 31, 2024 2: 01pm Marijuana use acute October 31 2:01pm Mild depression acute October 31, 2024 2:01pm Obesity affecting acute October 31, 2024 2:01pm Pelvic floor dysfunction in female acute October 31, 2024 2: 01pm acute October 31, 2024 2:01pm Previous section acute October 31, 2024 2:01pm Supervision of high-risk acute October 31, 2024 2: 01pm Adopted acute November 11, 2024 2:55pm Allergy to adhesive tape acute November 11, 2024 2:55pm Anxiety acute November 11, 2024 2:55pm Circumvallate placenta acute Ma y 2024 2:55pm History of miscarriage, currently acute November 11 2:55pm History of pre-eclampsia in prior , currently acute November 11, 2024 2 :55pm Hx of gestational diabetes i n prior , currently acute November 11, 2024 2 :55pm Marijuana use acute November 11, 025 2:55pm Mild depression acute November 11, 2024 2:55pm Obesity affecting acute November 11, 2024 2:55pm Pelvic floor dysfunction in female acute November 11, 2024 2 :55pm acute November 11, 2024 2:55pm Previous section acute November 11, 2024 2:55pm Supervision of high-risk acute November 11, 2024 2 :55pm Adopted acute December 11 3:47pm Allergy to adhesive tape acute December 11, 2024 3:47pm Anxiety acute December 11 3:47pm Circumvallate placenta acute 2024 3:47pm Gestational diabetes mellitu s (GDM) affecting , antepartum acute December 11, 2024 3:47pm History of miscarriage, currently acute December 11 3:47pm History of pre-eclampsia in prior , currently acute December 11, 2024 3:47pm Hx of gestational diabetes i n prior , currently acute December 11, 2024 3:47pm Marijuana use acute December 11, 2024 3:47pm Mild depression acute November 3:47pm Obesity affecting acute December 11, 2024 3:47pm Pelvic floor dysfunction in female acute December 11, 2024 3:47pm acute December 11 3:47pm Previous section acute December 11, 2024 3:47pm Supervision of high-risk acute December 11, 2024 3:47pm Gestational diabetes mellitu s (GDM) affecting , antepartum acute December 16, 2024 10:37am Adopted acute December 26 2:34pm Allergy to adhesive tape acute December 26, 2024 2:34pm Anxiety acute December 26 2:34pm Circumvallate placenta acute 2024 2:34pm Gestational diabetes mellitu s (GDM) affecting , antepartum acute December 26, 2024 2:34pm History of miscarriage, currently acute December 26 2:34pm History of pre-eclampsia in prior , currently acute December 26, 2024 2:34pm Hx of gestational diabetes i n prior , currently acute December 26, 2024 2:34pm Marijuana use acute December 26, 2024 2:34pm Mild depression acute November 2:34pm Obesity affecting acute December 26, 2024 2:34pm Pelvic floor dysfunction in female acute December 26, 2024 2:34pm acute December 26 2:34pm Previous section acute December 26, 2024 2:34pm Supervision of high-risk acute December 26, 2024 2:34pm Adopted acute January 08 1:46pm Allergy to adhesive tape acute January 08, 2025 1:46pm Anxiety acute January 08 1:46pm Circumvallate placenta acute 2024 1:46pm Gestational diabetes mellitu s (GDM) affecting , antepartum acute January 08, 2025 1:46pm Headache in acute Dec 1:46pm History of miscarriage, currently acute January 08 1:46pm History of pre-eclampsia in prior , currently acute January 08, 2025 1:46pm Hx of gestational diabetes i n prior , currently acute January 08, 2025 1:46pm Marijuana use acute January 08, 2025 1:46pm Mild depression acute December 1:46pm Obesity affecting acute January 08, 2025 1:46pm Pelvic floor dysfunction in female acute January 08, 2025 1:46pm acute January 08 1:46pm Previous section acute January 08, 2025 1:46pm Supervision of high-risk acute January 08, 2025 1:46pm [facility] Work Phone: [phone]) 925-183804-03-2025 Evaluation note* Diagnosis Onset Date Resolution Status Admit Date Adopted acute October 02 2:52pm Allergy to adhesive tape acute October 02, 2024 2:52pm Anxiety acute October 02 2:52pm Circumvallate placenta acute Ap 2024 2:52pm History of miscarriage, currently acute October 02 2:52pm History of pre-eclampsia in prior , currently acute October 02, 2024 2:52pm Hx of gestational diabetes i n prior , currently acute October 02, 2024 2:52pm Marijuana use acute October 02, 2024 2:52pm Mild depression acute September 2:52pm Obesity affecting acute October 02, 2024 2:52pm Pelvic floor dysfunction in female acute October 02, 2024 2:52pm acute October 02 2:52pm Previous section acute October 02, 2024 2:52pm Supervision of high-risk acute October 02, 2024 2:52pm Adopted acute October 31, 2024 2:01pm Allergy to adhesive tape acute October 31, 2024 2:01pm Anxiety acute October 31, 2024 2:01pm Circumvallate placenta acute Ma y 2024 2:01pm History of miscarriage, currently acute October 31, 2024 2:01pm History of pre-eclampsia in prior , currently acute October 31, 2024 2: 01pm Hx of gestational diabetes i n prior , currently acute October 31, 2024 2: 01pm Marijuana use acute October 31 2:01pm Mild depression acute October 31, 2024 2:01pm Obesity affecting acute October 31, 2024 2:01pm Pelvic floor dysfunction in female acute October 31, 2024 2: 01pm acute October 31, 2024 2:01pm Previous section acute October 31, 2024 2:01pm Supervision of high-risk acute October 31, 2024 2: 01pm Adopted acute November 11, 2024 2:55pm Allergy to adhesive tape acute November 11, 2024 2:55pm Anxiety acute November 11, 2024 2:55pm Circumvallate placenta acute Ma y 2024 2:55pm History of miscarriage, currently acute November 11 2:55pm History of pre-eclampsia in prior , currently acute November 11, 2024 2 :55pm Hx of gestational diabetes i n prior , currently acute November 11, 2024 2 :55pm Marijuana use acute November 11, 2 025 2:55pm Mild depression acute November 11, 2024 2:55pm Obesity affecting acute November 11, 2024 2:55pm Pelvic floor dysfunction in female acute November 11, 2024 2 :55pm acute November 11, 2024 2:55pm Previous section acute November 11, 2024 2:55pm Supervision of high-risk acute November 11, 2024 2 :55pm Adopted acute December 11 3:47pm Allergy to adhesive tape acute December 11, 2024 3:47pm Anxiety acute December 11 3:47pm Circumvallate placenta acute 2024 3:47pm Gestational diabetes mellitu s (GDM) affecting , antepartum acute December 11, 2024 3:47pm History of miscarriage, currently acute December 11 3:47pm History of pre-eclampsia in prior , currently acute December 11, 2024 3:47pm Hx of gestational diabetes i n prior , currently acute December 11, 2024 3:47pm Marijuana use acute December 11, 2024 3:47pm Mild depression acute November 3:47pm Obesity affecting acute December 11, 2024 3:47pm Pelvic floor dysfunction in female acute December 11, 2024 3:47pm acute December 11 3:47pm Previous section acute December 11, 2024 3:47pm Supervision of high-risk acute December 11, 2024 3:47pm Gestational diabetes mellitu s (GDM) affecting , antepartum acute December 16, 2024 10:37am Adopted acute December 26 2:34pm Allergy to adhesive tape acute December 26, 2024 2:34pm Anxiety acute December 26 2:34pm Circumvallate placenta acute [facility] 2024 2:34pm Gestational diabetes mellitu s (GDM) affecting , antepartum acute December 26, 2024 2:34pm History of miscarriage, currently acute December 26 2:34pm History of pre-eclampsia in prior , currently acute December 26, 2024 2:34pm Hx of gestational diabetes i n prior , currently acute December 26, 2024 2:34pm Marijuana use acute December 26, 2024 2:34pm Mild depression acute November 2:34pm Obesity affecting acute December 26, 2024 2:34pm Pelvic floor dysfunction in female acute December 26, 2024 2:34pm acute December 26 2:34pm Previous section acute December 26, 2024 2:34pm Supervision of high-risk acute December 26, 2024 2:34pm Adopted acute January 08 12:36pm Anxiety acute January 08 12:36pm Circumvallate placenta acute 2024 12:36pm Gestational diabetes mellitu s (GDM) affecting , antepartum acute January 08, 2025 12:36pm Headache in acute Dec 12:36pm History of miscarriage, currently acute January 08 12:36pm History of pre-eclampsia in prior , currently acute January 08, 2025 12:36pm Hx of gestational diabetes i n prior , currently acute January 08, 2025 12:36pm Marijuana use acute January 08, 2025 12:36pm Mild depression acute December 12:36pm Obesity affecting acute January 08, 2025 12:36pm acute January 08 12:36pm Previous section acute January 08, 2025 12:36pm Supervision of high-risk acute January 08, 2025 12:36pm Adopted acute January 08 1:46pm Allergy to adhesive tape acute January 08, 2025 1:46pm Anxiety acute January 08 1:46pm Circumvallate placenta acute 2024 1:46pm Gestational diabetes mellitu s (GDM) affecting , antepartum acute January 08, 2025 1:46pm Headache in acute Dec 1:46pm History of miscarriage, currently acute January 08 1:46pm History of pre-eclampsia in prior , currently acute January 08, 2025 1:46pm Hx of gestational diabetes i n prior , currently acute January 08, 2025 1:46pm Marijuana use acute January 08, 2025 1:46pm Mild depression acute December 1:46pm Obesity affecting acute January 08, 2025 1:46pm Pelvic floor dysfunction in female acute January 08, 2025 1:46pm acute January 08 1:46pm Previous section acute January 08, 2025 1:46pm Supervision of high-risk acute January 08, 2025 1:46pm [facility] Work Phone: [phone]) 751-339404-03-2025 Evaluation note* Diagnosis Onset Date Resolution Status Admit Date Adopted acute October 02 2:52pm Allergy to adhesive tape acute October 02, 2024 2:52pm Anxiety acute October 02 2:52pm Circumvallate placenta acute Ap 2024 2:52pm History of miscarriage, currently acute October 02 2:52pm History of pre-eclampsia in prior , currently acute October 02, 2024 2:52pm Hx of gestational diabetes i n prior , currently acute October 02, 2024 2:52pm Marijuana use acute October 02, 2024 2:52pm Mild depression acute September 2:52pm Obesity affecting acute October 02, 2024 2:52pm Pelvic floor dysfunction in female acute October 02, 2024 2:52pm acute October 02 2:52pm Previous section acute October 02, 2024 2:52pm Supervision of high-risk acute October 02, 2024 2:52pm Adopted acute October 31, 2024 2:01pm Allergy to adhesive tape acute October 31, 2024 2:01pm Anxiety acute October 31, 2024 2:01pm Circumvallate placenta acute Ma y 2024 2:01pm History of miscarriage, currently acute October 31, 2024 2:01pm History of pre-eclampsia in prior , currently acute October 31, 2024 2: 01pm Hx of gestational diabetes i n prior , currently acute October 31, 2024 2: 01pm Marijuana use acute October 31 2:01pm Mild depression acute October 31, 2024 2:01pm Obesity affecting acute October 31, 2024 2:01pm Pelvic floor dysfunction in female acute October 31, 2024 2: 01pm acute October 31, 2024 2:01pm Previous section acute October 31, 2024 2:01pm Supervision of high-risk acute October 31, 2024 2: 01pm Adopted acute November 11, 2024 2:55pm Allergy to adhesive tape acute November 11, 2024 2:55pm Anxiety acute November 11, 2024 2:55pm Circumvallate placenta acute Ma y 2024 2:55pm History of miscarriage, currently acute November 11 2:55pm History of pre-eclampsia in prior , currently acute November 11, 2024 2 :55pm Hx of gestational diabetes i n prior , currently acute November 11, 2024 2 :55pm Marijuana use acute November 11, 2 025 2:55pm Mild depression acute November 11, 2024 2:55pm Obesity affecting acute November 11, 2024 2:55pm Pelvic floor dysfunction in female acute November 11, 2024 2 :55pm acute November 11, 2024 2:55pm Previous section acute November 11, 2024 2:55pm Supervision of high-risk acute November 11, 2024 2 :55pm Adopted acute December 11 3:47pm Allergy to adhesive tape acute December 11, 2024 3:47pm Anxiety acute December 11 3:47pm Circumvallate placenta acute 2024 3:47pm Gestational diabetes mellitu s (GDM) affecting , antepartum acute December 11, 2024 3:47pm History of miscarriage, currently acute December 11 3:47pm History of pre-eclampsia in prior , currently acute December 11, 2024 3:47pm Hx of gestational diabetes i n prior , currently acute December 11, 2024 3:47pm Marijuana use acute December 11, 2024 3:47pm Mild depression acute November 3:47pm Obesity affecting acute December 11, 2024 3:47pm Pelvic floor dysfunction in female acute December 11, 2024 3:47pm acute December 11 3:47pm Previous section acute December 11, 2024 3:47pm Supervision of high-risk acute December 11, 2024 3:47pm Gestational diabetes mellitu s (GDM) affecting , antepartum acute December 16, 2024 10:37am Adopted acute December 26 2:34pm Allergy to adhesive tape acute December 26, 2024 2:34pm Anxiety acute December 26 2:34pm Circumvallate placenta acute 2024 2:34pm Gestational diabetes mellitu s (GDM) affecting , antepartum acute December 26, 2024 2:34pm History of miscarriage, currently acute December 26 2:34pm History of pre-eclampsia in prior , currently acute December 26, 2024 2:34pm Hx of gestational diabetes i n prior , currently acute December 26, 2024 2:34pm Marijuana use acute December 26, 2024 2:34pm Mild depression acute November 2:34pm Obesity affecting acute December 26, 2024 2:34pm Pelvic floor dysfunction in female acute December 26, 2024 2:34pm acute December 26 2:34pm Previous section acute December 26, 2024 2:34pm Supervision of high-risk acute December 26, 2024 2:34pm Adopted acute January 08 12:36pm Anxiety acute January 08 12:36pm Circumvallate placenta acute 2024 12:36pm Gestational diabetes mellitu s (GDM) affecting , antepartum acute January 08, 2025 12:36pm History of miscarriage, currently acute January 08 12:36pm History of pre-eclampsia in prior , currently acute January 08, 2025 12:36pm Hx of gestational diabetes i n prior , currently acute January 08, 2025 12:36pm Marijuana use acute January 08, 2025 12:36pm Mild depression acute December 12:36pm Obesity affecting acute January 08, 2025 12:36pm acute January 08 12:36pm Previous section acute January 08, 2025 12:36pm Supervision of high-risk acute January 08, 2025 12:36pm Headache in resolved Dec 12:36pm Adopted acute January 08 1:46pm Allergy to adhesive tape acute January 08, 2025 1:46pm Anxiety acute January 08 1:46pm Circumvallate placenta acute 2024 1:46pm Gestational diabetes mellitu s (GDM) affecting , antepartum acute January 08, 2025 1:46pm History of miscarriage, currently acute January 08 1:46pm History of pre-eclampsia in prior , currently acute January 08, 2025 1:46pm Hx of gestational diabetes i n prior , currently acute January 08, 2025 1:46pm Marijuana use acute January 08, 2025 1:46pm Mild depression acute December 1:46pm Obesity affecting acute January 08, 2025 1:46pm Pelvic floor dysfunction in female acute January 08, 2025 1:46pm acute January 08 1:46pm Previous section acute January 08, 2025 1:46pm Supervision of high-risk acute January 08, 2025 1:46pm Headache in resolved Dec 1:46pm Adopted acute January 13 6:37pm Allergy to adhesive tape acute January 13, 2025 6:37pm Anxiety acute January 13 6:37pm Circumvallate placenta acute Ju ly 2024 6:37pm Gestational diabetes mellitu s (GDM) affecting , antepartum acute January 13, 2025 6:37pm History of miscarriage, currently acute January 13 6:37pm History of pre-eclampsia in prior , currently acute January 13, 2025 6:37pm Hx of gestational diabetes i n prior , currently acute January 13, 2025 6:37pm Marijuana use acute January 13, 2025 6:37pm Mild depression acute December 6:37pm Obesity affecting acute January 13, 2025 6:37pm Pelvic floor dysfunction in female acute January 13, 2025 6:37pm acute January 13 6:37pm Previous section acute January 13, 2025 6:37pm Supervision of high-risk acute January 13, 2025 6:37pm Headache in resolved Dec 6:37pm Adopted acute January 16 4:01pm Allergy to adhesive tape acute January 16, 2025 4:01pm Anxiety acute January 16 4:01pm Circumvallate placenta acute Ju ly 2024 4:01pm Gestational diabetes mellitu s (GDM) affecting , antepartum acute January 16, 2025 4:01pm History of miscarriage, currently acute January 16 4:01pm History of pre-eclampsia in prior , currently acute January 16, 2025 4:01pm Hx of gestational diabetes i n prior , currently acute January 16, 2025 4:01pm Marijuana use acute January 16, 2025 4:01pm Mild depression acute December 4:01pm Obesity affecting acute January 16, 2025 4:01pm Pelvic floor dysfunction in female acute January 16, 2025 4:01pm acute January 16 4:01pm Previous section acute January 16, 2025 4:01pm Supervision of high-risk acute January 16, 2025 4:01pm [facility] Work Phone: [phone]) 808-302804-03-2025 Evaluation note* Diagnosis Onset Date Resolution Status Admit Date Adopted acute October 02 2:52pm Allergy to adhesive tape acute October 02, 2024 2:52pm Anxiety acute October 02 2:52pm Circumvallate placenta acute Ap 2024 2:52pm History of miscarriage, currently acute October 02 2:52pm History of pre-eclampsia in prior , currently acute October 02, 2024 2:52pm Hx of gestational diabetes i n prior , currently acute October 02, 2024 2:52pm Marijuana use acute October 02, 2024 2:52pm Mild depression acute September 2:52pm Obesity affecting acute October 02, 2024 2:52pm Pelvic floor dysfunction in female acute October 02, 2024 2:52pm acute October 02 2:52pm Previous section acute October 02, 2024 2:52pm Supervision of high-risk acute October 02, 2024 2:52pm Adopted acute October 31, 2024 2:01pm Allergy to adhesive tape acute October 31, 2024 2:01pm Anxiety acute October 31, 2024 2:01pm Circumvallate placenta acute Ma 2024 2:01pm History of miscarriage, currently acute October 31, 2024 2:01pm History of pre-eclampsia in prior , currently acute October 31, 2024 2: 01pm Hx of gestational diabetes i n prior , currently acute October 31, 2024 2: 01pm Marijuana use acute October 31 2:01pm Mild depression acute October 31, 2024 2:01pm Obesity affecting acute October 31, 2024 2:01pm Pelvic floor dysfunction in female acute October 31, 2024 2: 01pm acute October 31, 2024 2:01pm Previous section acute October 31, 2024 2:01pm Supervision of high-risk acute October 31, 2024 2: 01pm Adopted acute November 11, 2024 2:55pm Allergy to adhesive tape acute November 11, 2024 2:55pm Anxiety acute November 11, 2024 2:55pm Circumvallate placenta acute Ma y 2024 2:55pm History of miscarriage, currently acute November 11 2:55pm History of pre-eclampsia in prior , currently acute November 11, 2024 2 :55pm Hx of gestational diabetes i n prior , currently acute November 11, 2024 2 :55pm Marijuana use acute November 11, 025 2:55pm Mild depression acute November 11, 2024 2:55pm Obesity affecting acute November 11, 2024 2:55pm Pelvic floor dysfunction in female acute November 11, 2024 2 :55pm acute November 11, 2024 2:55pm Previous section acute November 11, 2024 2:55pm Supervision of high-risk acute November 11, 2024 2 :55pm Adopted acute December 11 3:47pm Allergy to adhesive tape acute December 11, 2024 3:47pm Anxiety acute December 11 3:47pm Circumvallate placenta acute Ju 2024 3:47pm Gestational diabetes mellitu s (GDM) affecting , antepartum acute December 11, 2024 3:47pm History of miscarriage, currently acute December 11 3:47pm History of pre-eclampsia in prior , currently acute December 11, 2024 3:47pm Hx of gestational diabetes i n prior , currently acute December 11, 2024 3:47pm Marijuana use acute December 11, 2024 3:47pm Mild depression acute November 3:47pm Obesity affecting acute December 11, 2024 3:47pm Pelvic floor dysfunction in female acute December 11, 2024 3:47pm acute December 11 3:47pm Previous section acute December 11, 2024 3:47pm Supervision of high-risk acute December 11, 2024 3:47pm Gestational diabetes mellitu s (GDM) affecting , antepartum acute December 16, 2024 10:37am Adopted acute December 26 2:34pm Allergy to adhesive tape acute December 26, 2024 2:34pm Anxiety acute December 26 2:34pm Circumvallate placenta acute Ju 2024 2:34pm Gestational diabetes mellitu s (GDM) affecting , antepartum acute December 26, 2024 2:34pm History of miscarriage, currently acute December 26 2:34pm History of pre-eclampsia in prior , currently acute December 26, 2024 2:34pm Hx of gestational diabetes i n prior , currently acute December 26, 2024 2:34pm Marijuana use acute December 26, 2024 2:34pm Mild depression acute November 2:34pm Obesity affecting acute December 26, 2024 2:34pm Pelvic floor dysfunction in female acute December 26, 2024 2:34pm acute December 26 2:34pm Previous section acute December 26, 2024 2:34pm Supervision of high-risk acute December 26, 2024 2:34pm Adopted acute January 08 12:36pm Anxiety acute January 08 12:36pm Circumvallate placenta acute 2024 12:36pm Gestational diabetes mellitu s (GDM) affecting , antepartum acute January 08, 2025 12:36pm History of miscarriage, currently acute January 08 12:36pm History of pre-eclampsia in prior , currently acute January 08, 2025 12:36pm Hx of gestational diabetes i n prior , currently acute January 08, 2025 12:36pm Marijuana use acute January 08, 2025 12:36pm Mild depression acute December 12:36pm Obesity affecting acute January 08, 2025 12:36pm acute January 08 12:36pm Previous section acute January 08, 2025 12:36pm Supervision of high-risk acute January 08, 2025 12:36pm Headache in resolved Dec 12:36pm Adopted acute January 08 1:46pm Allergy to adhesive tape acute January 08, 2025 1:46pm Anxiety acute January 08 1:46pm Circumvallate placenta acute 2024 1:46pm Gestational diabetes mellitu s (GDM) affecting , antepartum acute January 08, 2025 1:46pm History of miscarriage, currently acute January 08 1:46pm History of pre-eclampsia in prior , currently acute January 08, 2025 1:46pm Hx of gestational diabetes i n prior , currently acute January 08, 2025 1:46pm Marijuana use acute January 08, 2025 1:46pm Mild depression acute December 1:46pm Obesity affecting acute January 08, 2025 1:46pm Pelvic floor dysfunction in female acute January 08, 2025 1:46pm acute January 08 1:46pm Previous section acute January 08, 2025 1:46pm Supervision of high-risk acute January 08, 2025 1:46pm Headache in resolved Dec 1:46pm Adopted acute January 13 6:37pm Allergy to adhesive tape acute January 13, 2025 6:37pm Anxiety acute January 13 6:37pm Circumvallate placenta acute 2024 6:37pm Gestational diabetes mellitu s (GDM) affecting , antepartum acute January 13, 2025 6:37pm History of miscarriage, currently acute January 13 6:37pm History of pre-eclampsia in prior , currently acute January 13, 2025 6:37pm Hx of gestational diabetes i n prior , currently acute January 13, 2025 6:37pm Marijuana use acute January 13, 2025 6:37pm Mild depression acute December 6:37pm Obesity affecting acute January 13, 2025 6:37pm Pelvic floor dysfunction in female acute January 13, 2025 6:37pm acute January 13 6:37pm Previous section acute January 13, 2025 6:37pm Supervision of high-risk acute January 13, 2025 6:37pm Headache in resolved Dec 6:37pm Adopted acute January 16 4:01pm Allergy to adhesive tape acute January 16, 2025 4:01pm Anxiety acute January 16 4:01pm Circumvallate placenta acute Ju 2024 4:01pm Gestational diabetes mellitu s (GDM) affecting , antepartum acute January 16, 2025 4:01pm History of miscarriage, currently acute January 16 4:01pm History of pre-eclampsia in prior , currently acute January 16, 2025 4:01pm Hx of gestational diabetes i n prior , currently acute January 16, 2025 4:01pm Marijuana use acute January 16, 2025 4:01pm Mild depression acute December 4:01pm Obesity affecting acute January 16, 2025 4:01pm Pelvic floor dysfunction in female acute January 16, 2025 4:01pm acute January 16 4:01pm Previous section acute January 16, 2025 4:01pm Supervision of high-risk acute January 16, 2025 4:01pm Adopted acute January 22 2:43pm Allergy to adhesive tape acute January 22, 2025 2:43pm Anxiety acute January 22 2:43pm Circumvallate placenta acute 2024 2:43pm Gestational diabetes mellitu s (GDM) affecting , antepartum acute January 22, 2025 2:43pm History of miscarriage, currently acute January 22 2:43pm History of pre-eclampsia in prior , currently acute January 22, 2025 2:43pm Hx of gestational diabetes i n prior , currently acute January 22, 2025 2:43pm Marijuana use acute January 22, 2025 2:43pm Mild depression acute December 2:43pm Obesity affecting acute January 22, 2025 2:43pm Pelvic floor dysfunction in female acute January 22, 2025 2:43pm acute January 22 2:43pm Previous section acute January 22, 2025 2:43pm Supervision of high-risk acute January 22, 2025 2:43pm [facility] Work Phone: 1(898) 313-167902-26-2025 Evaluation note* Diagnosis Onset Date Resolution Status Admit Date Adopted acute August 27, 2024 3:25pm Allergy to adhesive tape acute August 27, 2024 3:25pm Anxiety acute August 27, 2024 3:25pm History of miscarriage, currently acute August 3:25pm History of pre-eclampsia in prior , currently acute August 27, 2 025 3:25pm Hx of gestational diabetes i n prior , currently acute August 27, 2 025 3:25pm Marijuana use acute August 272024 3:25pm Mild depression acute August 27, 2024 3:25pm Obesity affecting acute August 27, 2024 3:25pm Pelvic floor dysfunction in female acute August 27, 2 025 3:25pm acute August 27, 2024 3:25pm Previous section acute August 27, 2024 3:25pm Supervision of high-risk acute August 27, 2 025 3:25pm Left shoulder strain resolved Febr uary 2024 3:25pm Right shoulder strain resolved Feb ruary 2024 3:25pm Adopted acute October 02 2:52pm Allergy to adhesive tape acute October 02, 2024 2:52pm Anxiety acute October 02 2:52pm Circumvallate placenta acute Ap 2024 2:52pm History of miscarriage, currently acute October 02 2:52pm History of pre-eclampsia in prior , currently acute October 02, 2024 2:52pm Hx of gestational diabetes i n prior , currently acute October 02, 2024 2:52pm Marijuana use acute October 02, 2024 2:52pm Mild depression acute September 2:52pm Obesity affecting acute October 02, 2024 2:52pm Pelvic floor dysfunction in female acute October 02, 2024 2:52pm acute October 02 2:52pm Previous section acute October 02, 2024 2:52pm Supervision of high-risk acute October 02, 2024 2:52pm Adopted acute October 31, 2024 2:01pm Allergy to adhesive tape acute October 31, 2024 2:01pm Anxiety acute October 31, 2024 2:01pm Circumvallate placenta acute Ma 2024 2:01pm History of miscarriage, currently acute October 31, 2024 2:01pm History of pre-eclampsia in prior , currently acute October 31, 2024 2: 01pm Hx of gestational diabetes i n prior , currently acute October 31, 2024 2: 01pm Marijuana use acute October 31 2:01pm Mild depression acute October 31, 2024 2:01pm Obesity affecting acute October 31, 2024 2:01pm Pelvic floor dysfunction in female acute October 31, 2024 2: 01pm acute October 31, 2024 2:01pm Previous section acute October 31, 2024 2:01pm Supervision of high-risk acute October 31, 2024 2: 01pm Adopted acute November 11, 2024 2:55pm Allergy to adhesive tape acute November 11, 2024 2:55pm Anxiety acute November 11, 2024 2:55pm Circumvallate placenta acute Ma 2024 2:55pm History of miscarriage, currently acute November 11 2:55pm History of pre-eclampsia in prior , currently acute November 11, 2024 2 :55pm Hx of gestational diabetes i n prior , currently acute November 11, 2024 2 :55pm Marijuana use acute November 11, 2 2:55pm Mild depression acute November 11, 2024 2:55pm Obesity affecting acute November 11, 2024 2:55pm Pelvic floor dysfunction in female acute November 11, 2024 2 :55pm acute November 11, 2024 2:55pm Previous section acute November 11, 2024 2:55pm Supervision of high-risk acute November 11, 2024 2 :55pm Adopted acute December 11 3:47pm Allergy to adhesive tape acute December 11, 2024 3:47pm Anxiety acute December 11 3:47pm Circumvallate placenta acute Ju 2024 3:47pm Gestational diabetes mellitu s (GDM) affecting , antepartum acute December 11, 2024 3:47pm History of miscarriage, currently acute December 11 3:47pm History of pre-eclampsia in prior , currently acute December 11, 2024 3:47pm Hx of gestational diabetes i n prior , currently acute December 11, 2024 3:47pm Marijuana use acute December 11, 2024 3:47pm Mild depression acute November 3:47pm Obesity affecting acute December 11, 2024 3:47pm Pelvic floor dysfunction in female acute December 11, 2024 3:47pm acute December 11 3:47pm Previous section acute December 11, 2024 3:47pm Supervision of high-risk acute December 11, 2024 3:47pm [facility] Work Phone: 1(310) 933-260002-26-2025 Evaluation note* Diagnosis Onset Date Resolution Status Admit Date Adopted acute August 27, 2024 3:25pm Allergy to adhesive tape acute August 27, 2024 3:25pm Anxiety acute August 27, 2024 3:25pm History of miscarriage, currently acute August 3:25pm History of pre-eclampsia in prior , currently acute August 27, 2 025 3:25pm Hx of gestational diabetes i n prior , currently acute August 27, 2 025 3:25pm Marijuana use acute August 272024 3:25pm Mild depression acute August 27, 2024 3:25pm Obesity affecting acute August 27, 2024 3:25pm Pelvic floor dysfunction in female acute August 27, 2 025 3:25pm acute August 27, 2024 3:25pm Previous section acute August 27, 2024 3:25pm Supervision of high-risk acute August 27, 2 025 3:25pm Left shoulder strain resolved Febr uary 2024 3:25pm Right shoulder strain resolved Feb ruary 2024 3:25pm Adopted acute October 02 2:52pm Allergy to adhesive tape acute October 02, 2024 2:52pm Anxiety acute October 02 2:52pm Circumvallate placenta acute Ap 2024 2:52pm History of miscarriage, currently acute October 02 2:52pm History of pre-eclampsia in prior , currently acute October 02, 2024 2:52pm Hx of gestational diabetes i n prior , currently acute October 02, 2024 2:52pm Marijuana use acute October 02, 2024 2:52pm Mild depression acute September 2:52pm Obesity affecting acute October 02, 2024 2:52pm Pelvic floor dysfunction in female acute October 02, 2024 2:52pm acute October 02 2:52pm Previous section acute October 02, 2024 2:52pm Supervision of high-risk acute October 02, 2024 2:52pm Adopted acute October 31, 2024 2:01pm Allergy to adhesive tape acute October 31, 2024 2:01pm Anxiety acute October 31, 2024 2:01pm Circumvallate placenta acute Ma 2024 2:01pm History of miscarriage, currently acute October 31, 2024 2:01pm History of pre-eclampsia in prior , currently acute October 31, 2024 2: 01pm Hx of gestational diabetes i n prior , currently acute October 31, 2024 2: 01pm Marijuana use acute October 31 2:01pm Mild depression acute October 31, 2024 2:01pm Obesity affecting acute October 31, 2024 2:01pm Pelvic floor dysfunction in female acute October 31, 2024 2: 01pm acute October 31, 2024 2:01pm Previous section acute October 31, 2024 2:01pm Supervision of high-risk acute October 31, 2024 2: 01pm Adopted acute November 11, 2024 2:55pm Allergy to adhesive tape acute November 11, 2024 2:55pm Anxiety acute November 11, 2024 2:55pm Circumvallate placenta acute Ma 2024 2:55pm History of miscarriage, currently acute November 11 2:55pm History of pre-eclampsia in prior , currently acute November 11, 2024 2 :55pm Hx of gestational diabetes i n prior , currently acute November 11, 2024 2 :55pm Marijuana use acute November 11, 2 2:55pm Mild depression acute November 11, 2024 2:55pm Obesity affecting acute November 11, 2024 2:55pm Pelvic floor dysfunction in female acute November 11, 2024 2 :55pm acute November 11, 2024 2:55pm Previous section acute November 11, 2024 2:55pm Supervision of high-risk acute November 11, 2024 2 :55pm Adopted acute December 11 3:47pm Allergy to adhesive tape acute December 11, 2024 3:47pm Anxiety acute December 11 3:47pm Circumvallate placenta acute 2024 3:47pm Gestational diabetes mellitu s (GDM) affecting , antepartum acute December 11, 2024 3:47pm History of miscarriage, currently acute December 11 3:47pm History of pre-eclampsia in prior , currently acute December 11, 2024 3:47pm Hx of gestational diabetes i n prior , currently acute December 11, 2024 3:47pm Marijuana use acute December 11, 2024 3:47pm Mild depression acute November 3:47pm Obesity affecting acute December 11, 2024 3:47pm Pelvic floor dysfunction in female acute December 11, 2024 3:47pm acute December 11 3:47pm Previous section acute December 11, 2024 3:47pm Supervision of high-risk acute December 11, 2024 3:47pm Gestational diabetes mellitu s (GDM) affecting , antepartum acute December 16, 2024 10:37am [facility] Work Phone: 1([phone]) 159-766801-31-2025 Evaluation note* Diagnosis Onset Date Resolution Status Admit Date Adopted acute August 01, 2024 11:34am Allergy to adhesive tape acute August 01, 2024 11:34am Anxiety acute August 01, 2024 11:34am History of miscarriage, currently acute August 01, 2024 11:34am History of pre-eclampsia in prior , currently acute August 01 11:34am Hx of gestational diabetes i n prior , currently acute August 01 11:34am Marijuana use acute July 11:34am Mild depression acute July 042024 11:34am Obesity affecting acute August 01, 2024 11:34am Pelvic floor dysfunction in female acute August 01 11:34am acute August 01, 2024 11:34am Previous section acute August 01, 2024 11:34am Supervision of high-risk acute August 01 11:34am Left shoulder strain resolved Rodolfojann ortiz 2024 11:34am Right shoulder strain resolved Joselito carey 2024 11:34am Adopted acute August 27, 2024 3:25pm Allergy to adhesive tape acute August 27, 2024 3:25pm Anxiety acute August 27, 2024 3:25pm History of miscarriage, currently acute August 3:25pm History of pre-eclampsia in prior , currently acute August 27, 2 025 3:25pm Hx of gestational diabetes i n prior , currently acute August 27, 2 025 3:25pm Marijuana use acute August 272024 3:25pm Mild depression acute August 27, 2024 3:25pm Obesity affecting acute August 27, 2024 3:25pm Pelvic floor dysfunction in female acute August 27, 2 025 3:25pm acute August 27, 2024 3:25pm Previous section acute August 27, 2024 3:25pm Supervision of high-risk acute August 27, 2 025 3:25pm Left shoulder strain resolved Febr uary 2024 3:25pm Right shoulder strain resolved Feb ruary 2024 3:25pm Adopted acute October 02 2:52pm Allergy to adhesive tape acute October 02, 2024 2:52pm Anxiety acute October 02 2:52pm Circumvallate placenta acute Ap 2024 2:52pm History of miscarriage, currently acute October 02 2:52pm History of pre-eclampsia in prior , currently acute October 02, 2024 2:52pm Hx of gestational diabetes i n prior , currently acute October 02, 2024 2:52pm Marijuana use acute October 02, 2024 2:52pm Mild depression acute September 2:52pm Obesity affecting acute October 02, 2024 2:52pm Pelvic floor dysfunction in female acute October 02, 2024 2:52pm acute October 02 2:52pm Previous section acute October 02, 2024 2:52pm Supervision of high-risk acute October 02, 2024 2:52pm Adopted acute October 31, 2024 2:01pm Allergy to adhesive tape acute October 31, 2024 2:01pm Anxiety acute October 31, 2024 2:01pm Circumvallate placenta acute Ma 2024 2:01pm History of miscarriage, currently acute October 31, 2024 2:01pm History of pre-eclampsia in prior , currently acute October 31, 2024 2: 01pm Hx of gestational diabetes i n prior , currently acute October 31, 2024 2: 01pm Marijuana use acute October 31 2:01pm Mild depression acute October 31, 2024 2:01pm Obesity affecting acute October 31, 2024 2:01pm Pelvic floor dysfunction in female acute October 31, 2024 2: 01pm acute October 31, 2024 2:01pm Previous section acute October 31, 2024 2:01pm Supervision of high-risk acute October 31, 2024 2: 01pm Adopted acute November 11, 2024 2:55pm Allergy to adhesive tape acute November 11, 2024 2:55pm Anxiety acute November 11, 2024 2:55pm Circumvallate placenta acute Ma y 2024 2:55pm History of miscarriage, currently acute November 11 2:55pm History of pre-eclampsia in prior , currently acute November 11, 2024 2 :55pm Hx of gestational diabetes i n prior , currently acute November 11, 2024 2 :55pm Marijuana use acute November 11, 2 025 2:55pm Mild depression acute November 11, 2024 2:55pm Obesity affecting acute November 11, 2024 2:55pm Pelvic floor dysfunction in female acute November 11, 2024 2 :55pm acute November 11, 2024 2:55pm Previous section acute November 11, 2024 2:55pm Supervision of high-risk acute November 11, 2024 2 :55pm [employer] Work Phone: 1(238) 296-189502-21-2024 Progress note Author Anisa Blackmon [facility] August 22, 2023 7:55am Note Date/Time August 22, 2023 7:55am [facility] Medical Records Department [address] [place] [address] Progress Note - OBGYN 08/22/23 0753 MR#: [id number] Acct: [id number] Name: AZAEL SULTANA Rep #:[id number] : 2000 22 From: Anisa Blackmon NP INDUSTRIAL PSYCHOLOGY PROFESSOR-C PCP: MING Sagastume Status:ADM I N Location: [place] [address] Subjective Subjective Patient doing well without complaints. Tolerating PO. Ambulating and voiding without difficulty. Feeding well. Denies chest pain, shortness of breath, calf pain/swelling, fevers, chills, lightheadedness. Objective Data Objective Data Vital Signs: Vital Signs Temp Pulse Resp BP Pulse Ox O2 Del Method 97.3 F L 82 18 136/70 H 100 Room Air 08/22/23 02:35 08/22/23 02:35 08/22/23 02:35 08/22/23 02:35 08/22/23 02:35 08/22/23 02:35 Oxygen Delivery Method Room Air Weight: 270 lb 9.6 oz Body Mass Index (BMI) 47.9 Intake & Output: Intake and Output for Last 24 Hours 08/20/23 08/21/23 08/22/23 23:59 23:59 23:59 Intake Total 1365 / 1365 Output Total 1400 / 1400 200 / 200 Balance -35 / -35 -200 / -200 Lab / Micro Data 08/21/23 12:26 Labs: Laboratory Results - last 24 hr 08/21/23 12:03: POC Glucose 83 08/21/23 12:26: WBC 11.7 H, RBC 3.08 L, Hgb 8.8 L, Hct 27.0 L, MCV 87.7, MCH 28.6, MCHC 32.6, RDW Std Deviation 46.5 H, RDW Coeff of Elver 14.7 H, Plt Count 284, MPV 10.7 08/21/23 17:52: POC Glucose 80 Physical Exam Const alert and oriented x3 HEENT normocephalic Eyes PERRL Neck full ROM Resp normal respiratory effort GI soft to palpation GI Narrative: FF below U. Dressing dry and intact Palpation: tender other (appropriately) Assessment & Plan (1) delivery delivered: COMMENT: SM boy 38 GDM LTCS history of shoulder dystocia (2) Gestational diabetes: QUALIFIERS: Gestational diabetes mellitus control: insulin-controlled Trimester: first trimester Qualified Code(s): O24.414 - Gestationaldiabetes mellitus in , insulin controlled COMMENT: primary csection 08/20 @ 7:15 with SM on insulin started at 11 weeks. PLAN: Plan s/p LTCS PPD # 2 1. routine post care 2. breast feeding- support given 3. rh positive 4. rubella immune 5. glucose and BP stable 6. home today 08/22/23 5865 <Electronically signed by Anisa Blackmon NP INDUSTRIAL PSYCHOLOGY PROFESSOR-C> Cosigner Signature (if applicable): CC: ~ Signed [facility] Work Phone: 1(633) 977-935802-20-2024 Discharge summary Author Marietta Ghosh [facility] August 21, 2023 4:10pm Note Date/Time August 20, 2023 7:45am [facility] Medical Records Department [facility] [place] [address] Instructions for Home/Discharge Instructions 08/20/23 0745 MR#: [id number] Acct: [id number] Name: AZAEL SULTANA Rep #:[id number] : 2000 22 From: Fadumo lepe MD PCP: Bird Ruiz NP-C Status:ADM I N Discharge Instructions Diet Discharge Diet: No restrictions Activity Discharge Activity: May Not Drive (for 2 weeks or while taking narcotic pain medications.), May Shower and May Take a Tub Bath (in 7 days) May shower in (days): 0 May resume sexual activity in: 4-6 weeks Weight Bearing Status: Full weight bearing Lifting Restrictions: 20 pounds Dressing / Incision Call your doctor if your incision/area has: Continuous Slow Oozing, Sudden Increased Bleeding, Increased Pain/ Swelling, Increased Redness and Foul Smelling Discharge Call your doctor if you observe: Fever of 101 or Higher and Using more than 1 pad per hour (for 2 hours) Suture Line Care: Avoid Pulling/Pushing and Avoid Pinching/Bending Cleanse incision/area with: Soap & Water and Keep Dressing Clean & Dry Follow Up Care Please Follow Up With: Fadumo Zelaya MD When: Call [phone] to make an appointment for an incision check in 1-2 weeks. Test Results: Test results from this visit will be discussed in further detail at your follow- up appointment, if applicable. Discharge Plan Admission Admit Date/Time: 08/20/23 05:30 Attending Provider: Fadumo Zelaya Primary Care Provider: Bird Ruiz NP Discharge Orders/Prescriptions Prescriptions: No Action PNV-Clothier 28-1-300 mg capsule 300 cap PO DAILY aspirin 81 mg tablet,delayed release (DR/EC) 81 mg PO DAILY Qty: 90 3RF insulin degludec [Tresiba FlexTouch U-200] 200 unit/mL (3 mL) insulin pen 60 unit subcut DAILY Rx Instructions: 60 units HS (DME) pen needle, diabetic [BD Ultra-Fine Shelley Pen Needle] 32 gauge x 5/32" needle See Rx Instructions .ROUTE .MEDSUPPLY Qty: 150 6RF Rx Instructions: 4 times daily (DME) FreeStyle Dot 3 Sensor Device See Rx Instructions .Route Qty: 2 6RF Rx Instructions: As directed (DME) 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 meter Misc See Rx Instructions .MEDSUPPLY Qty: 1 0RF Rx Instructions: As directed- Test fasting and 2 hours after meals (DME) lancets Misc See Rx Instructions .MEDSUPPLY Qty: 200 8RF Rx Instructions: As directed- fasting and 2 HR post meals (DME) Blood Glucose Test Strip See Rx Instructions .Route Qty: 120 11RF Rx Instructions: As directed fasting and 2 hr post meals Referrals / Follow Up: Bird Ruiz NP, INDUSTRIAL PSYCHOLOGY PROFESSOR-C [Primary Care Provider] - Disposition Disposition (needs filled in before D/C Order can be placed): Home, Self Care 08/21/23 1411<Electronically signed by Fadumo Zelaya MD>Fadumo Zelaya MD CC: INDUSTRIAL PSYCHOLOGY PROFESSOR-C Bird Ruiz ~ Signed [facility] Work Phone: 1(405) 333-594902-20-2024 Progress note Author Marietta Ghosh [facility] August 21, 2023 8:09am Note Date/Time August 21, 2023 8:09am [facility] Medical Records Department [address] [place] [address] Progress Note - OBGYN 08/21/23 0807 MR#: [id number] Acct: [id number] Name: AZAEL SULTANA Rep #:[id number] : 2000 22 From: Marietta Ghosh CNM PCP: MING Sagastume Status:ADM I N Location: [place] [address] Subjective Subjective Patient doing well without complaints. Tolerating PO. Ambulating and voiding without difficulty. Feeding well. Denies chest pain, shortness of breath, calf pain/swelling, fevers, chills, lightheadedness. Objective Data Objective Data Vital Signs: Vital Signs Temp Pulse Resp BP Pulse Ox O2 Del Method 97.7 F L 88 18 134/73 H 99 Room Air 08/21/23 03:10 08/21/23 03:10 08/21/23 03:10 08/21/23 03:10 08/21/23 03:10 08/21/23 03:10 Oxygen Delivery Method Room Air Weight: 270 lb 9.6 oz Body Mass Index (BMI) 47.9 Intake & Output: Intake and Output for Last 24 Hours 08/19/23 08/20/23 08/21/23 23:59 23:59 23:59 Intake Total 1365 / 1365 Output Total 1400 / 1400 200 / 200 Balance -35 / -35 -200 / -200 Lab / Micro Data Attestation: I reviewed the patient's lab results. 08/21/23 05:37 Labs: Laboratory Results - last 24 hr 08/20/23 10:10: POC Glucose 121 H 08/20/23 13:55: POC Glucose 90 08/20/23 19:24: POC Glucose 56 L 08/20/23 20:01: POC Glucose 78 08/20/23 22:05: POC Glucose 118 H 08/21/23 05:37: WBC 11.2 H, RBC 2.96 L, Hgb 8.3 L, Hct 26.5 L, MCV 89.5, MCH 28.0, MCHC 31.3 L, RDW Std Deviation 47.7 H, RDW Coeff of Elver 14.6, Plt Count 250, MPV 10.1 08/21/23 06:59: POC Glucose 100 ROS Constitutional Constitutional: Reports systems reviewed and no addt'l complaints, except as documented; Denies anorexia or headache(s) Cardiovascular Cardiovascular: Reports systems reviewed and no addt'l complaints, except as documented; Denies dizziness, dyspnea, nausea or tachypnea Respiratory/Chest Respiratory/Chest: Reports systems reviewed and no addt'l complaints, except as documented; Denies cough, dyspnea, shortness of breath at rest or tachypnea Gastrointestinal Gastrointestinal: Reports systems reviewed and no addt'l complaints, except as documented; Denies abdominal pain, constipation or nausea Genitourinary Genitourinary: Reports systems reviewed and no addt'l complaints, except as documented; Denies burning urination, difficulty urinating, dysuria, urinary frequency or urinary incontinence Musculoskeletal Musculoskeletal: Reports systems reviewed and no addt'l complaints, except as documented Integumentary Integumentary: Reports systems reviewed and no addt'l complaints, except as documented Neurologic Neurologic: Reports systems reviewed and no addt'l complaints, except as documented; Denies abnormal speech, dizziness or headache(s) Psychiatric Psychiatric: Reports systems reviewed and no addt'l complaints, except as documented Endocrine Endocrinology: Reports systems reviewed and no addt'l complaints, except as documented Hematologic/Lymphatic Hematologic/Lymphatic: Reports systems reviewed and no addt'l complaints, exceptas documented Physical Exam Const alert, oriented x3 and no apparent distress Neck full ROM Resp normal respiratory effort, normal air movement and no retractions Effort and Inspection: able to speak in complete sentences and symmetric chest movement GI soft to palpation Inspection: incision intact Bladder / Kidney Exam: bladder normal to palpation Uterus Palpation: uterus fundus Extremity normal to inspection and full ROM Skin no rashes or lesions noted Neuro moves all extremities Psych mental status grossly normal, thought process normal and cooperative Assessment & Plan (1) delivery delivered: COMMENT: SM boy 38 GDM LTCS history of shoulder dystocia PLAN: s/p LTCS PPD # 1 1. routine post care 2. breast feeding- support given 3. rh positive 4. rubella immune 5. Discharge Home (2) Gestational diabetes: QUALIFIERS: Gestational diabetes mellitus control: insulin-controlled Trimester: first trimester Qualified Code(s): O24.414 - Gestationaldiabetes mellitus in , insulin controlled COMMENT: primary csection 08/20 @ 7:15 with SM on insulin started at 11 weeks. NSTs starting 32 weeks twice weekly Growth US at 37 wk:67%. increasing insulin demands weekly, with limited controlrecommend delivery at 38 weeks (3) Marijuana use: COMMENT: encouraged cessation, plan random tox screen. Positive 12/06/19, 01/30/20, 03/24/20-01/24/23 Pt has medical marijuana card. Pt is using marijuana vape 2-3 times per day and states trying to quit. Counseling provided. Charges/Coding Multi Select Codes Urinary/Genital Urinary/Genital CPT Codes: No Charge 08/21/23 0809 <Electronically signed by Marietta Ghosh CNM> Cosigner Signature (if applicable): CC: ~ Signed [facility] Work Phone: 1(952) 697-164502-19-2024 Procedure [facility] 08-20-2023 History and physical note Author Fadumo Zelaya [facility] August 20, 2023 7:40am Note Date/Time August 20, 2023 7:39am [facility] Medical Records Department [address] [place] [address] [place] [address] History & Physical Exam 08/20/23 0735 MR#: [id number] Acct: [id number] Name: AZAEL SULTANA Rep #:[id number] : 2000 22 From: Fadumo lepe MD PCP: MING Sagastume Status:ADM I N Location: [place] [address]-1 History and Physical Date of Admission: 08/20/23 Vital Signs 05/18/2313:53 08/10/2413:17 08/14/2410:12 08/14/2410:12 Height 5 ft 3 in 5 ft 3 in 5 ft 3 in 5 ft 3 in Weight: 267 lb 2 oz BMI 47.3 BP 124/79 H Intake Visit Reasons: NST Cane Loader Required: No Is patient in pain?: No Allergies No Known Allergies Allergy (Verified 08/14/23 11:11) Medications multivit-min no.71-iron fum 28 mg-folate no.1 1 mg-dha 300 mg capsule (PNV- Clothier) cap PO 01/11/23 [History Confirmed 08/14/23] aspirin 81 mg tablet,delayed release 81 mg PO DAILY #90 tabs 01/25/23 [Rx Confirmed 08/14/23] blood sugar diagnostic (Blood Glucose Test strips) #120 ea 02/08/23 [Rx Confirmed 08/14/23] 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 meter #1 ea 02/08/23 [Rx Confirmed 08/14/23] lancets #200 ea 02/08/23 [Rx Confirmed 08/14/23] BD Ultra-Fine Shelley Pen Needle 32 gauge x 5/32" (pen needle, diabetic) #150 ea 02/13/23 [Rx Confirmed 08/14/23] 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 sensor (FreeStyle Dot 3 Sensor device) #2 ea 02/13/23 [Rx Confirmed 08/14/23] insulin degludec 200 unit/mL (3 mL) subcutaneous pen (Tresiba FlexTouch U-200 insulin) 60 unit subcut DAILY 08/14/23 [History Confirmed 08/14/23] Last Menstrual Period: 11/23/22 Zika: Zika virus screening: Negative : No PFSH PFSH Medical History (Updated 08/19/23 @ 12:[address] Fadumo Zelaya MD) Adopted Anxiety Complete Gestational diabetes Marijuana use Pre-eclampsia Surgical History History of dental surgery Family History Mother DiabetesGrandfather Diabetes Social History adopted: Yes (limited family medical history known) household members: family number of children: 1 current occupational status: employed current occupation: [employer] current occupational exposures/hazards: No pets and animals: Yes (Not managing litterbox) pets and animals: cat(s) and dog(s) history of recent travel: No sexually active: Yes Smoking Status: Former smoker quit date: 10/30/22 quit status: quit date established counseling given: counseling >3 minutes alcohol intake: former details: social drinking prior to substance use type: marijuana well-balanced diet: daily or most days caffeine: Yes Type: carbonated beverages Number of servings: 1 eating out: 1-3 times/week during the past year weight has: remained stable what type of physical activity do you participate in: walking frequency: 1-2 times per week duration: 30-45 minutes/day matt/adventist: None seatbelt use: always do you feel safe at home: Yes additional social history: Patient works at [employer]- Works at [employer] History 3 Elective abortions Hx Para 1 Spontaneous abortions 1 Hx # Term Pregnancies 1 Ectopic pregnancies Hx # Pregnancies Multiple births # of living children 1 Past Pregnancies Del. Date Name GA/Weeks Outcome Route Bth Weight Infant Gen Labor Lgth Anesthesia Del Locatn Provider FOB 07/20/20 Andre 37 live - full term va cuum Male [facility] Alex Delivery Date: 07/20/20 Last Updated by: Angy Ayon IOL pre-eclampsia VAVD triple I HPI NST Details: AZAEL SULTANA is a 22 year old @ 38w4d who presents for primary low transverse section due to uncontrolled diabetes, increased insulin demands and history of shoulder dystocia with EFW similar to previous . patient was counseled regarding risks of shoulder dystocia recurrence and prematurity, and decision is made to proceed with delivery. OB Visit ANNA MARIE Calculator Estimated Delivery Date Method Current WG Current Estimate 08/30/23 LMP (Certain) 38w 3d Other Estimates 03/03/24 Ultrasound #1 38w 0d Expected Delivery Route/Plan Labor Preferences- CB/BF classes: no labor support person: Andre (goes by Reuben) labor intervention preferences: [] pain management options preferred: epidural cut cord/dad catch: cord : maybe PP control planned: discussed discussed possible routes of delivery and associated risks: [] special requests: [] Specific Issue/Plans Covid status: discussed Flu vaccine: discussed Tdap vaccine: done Rhogam: na LARC form signed: done Problem list reviewed and updated with the most current plan of care details and appropriate orders placed. Relevant counseling for the gestational age provided. Continue routine care and follow up unless otherwise noted in visit notes/problem list details Initial Weight: 240 lb Date -?-?-?-?-?-?-?-?-?-?-?-?- EGA Weight BP Urine Prot -?-?-?-?-?-?-?-?-?-?-?-?- Glucose FHR FuHt Pres Dilation -?-?-?-?-?-?-?-?-?-?-?-?- Effaced St Visit Note 01/25/23-?-?-?-?-?-?-?-?-?-?-?-?- 9w 0d 240 lb 8 oz(+8 oz) 129/80 -?-?-?-?-?-?-?-?-?-?-?-?- -?-?-?-?-?-?-?-?-?-?-?-?- JV- bedside ultrasound shows + FHt and CRL measurs 25.5 mm 9 weeks 3 days. formal scan ordered for better visualization. desires NIPT. starting baby asa, pih baseline labs, phenergan for nausea. 02/23/23-?-?-?-?-?-?-?-?-?-?-?-?- 13w 1d 243 lb(+3 lb) 112/80 Negative -?-?-?-?-?-?-?-?-?-?-?-?- 500 g/dL 159 -?-?-?-?-?-?-?-?-?-?-?-?- KW- no vb/cramping. Discussed AFP. Formal US ordered. Reports good BS, sees Dr Vaughan. on 22 units of insulin in the evening. 03/23/23-?-?-?-?-?-?-?-?-?-?-?-?- 17w 1d 244 lb(+4 lb) 110/69 Negative -?-?-?-?-?-?-?-?-?-?-?-?- Negative 150 -?-?-?-?-?-?-?-?-?-?-?-?- SM no vb lof cramping 05/18/23-?-?-?-?-?-?-?-?-?-?-?-?- 25w 1d 247 lb 7 oz(+7 lb 7 oz) 130/83 Negative -?-?-?-?-?-?-?-?-?-?-?-?- Negative 145 -?-?-?-?-?-?-?-?-?-?-?-?- KW- no vb/lof/ctx. good fm. 36 units of insulin at HS. BS controlled. discussed NSTs at 32 weeks. Requesting waiting to repeat urine tox screen until a later appt due to testing positive last week for work. 06/06/23-?-?-?-?-?-?-?-?-?-?-?-?- 27w 6d 258 lb(+18 lb) 116/82 Negative -?-?-?-?-?-?-?-?-?-?-?-?- Negative 150 28 -?-?-?-?-?-?-?-?-?-?-?-?- MH-No VB, LOF. Good FM. States insulin same dosage, reports to Dr Vaughan. Larc, tdap, 28 wk labs 06/20/23-?-?-?-?-?-?-?-?-?-?-?-?- 29w 6d 257 lb 5 oz(+17 lb 5 oz) 122/82 Negative -?-?-?-?-?-?-?-?-?-?-?-?- Negative -?-?-?-?-?-?-?-?-?-?-?-?- MH-nurse visit for vision issues. No headache. Normal BP and urine. Pain mid to upper back-GB US today 06/22/23-?-?-?-?-?-?-?-?-?-?-?-?- 30w 1d 258 lb 4 oz(+18 lb 4 oz) 91/53 Negative -?-?-?-?-?-?-?-?-?-?-?-?- Negative 145 34 -?-?-?-?-?-?-?-?-?-?-?-?- kw-no vb/lof/ctx. good fm. blood sugars in the 50s throughout day. pt asymptomatic. encouraged to contact Dr Vaughan with numbers to see if insulin needs adjusted. BP low today and reports not drinking much fluid. encouraged to hydrate. overall doing well. 07/06/23-?-?-?-?-?-?-?-?-?-?-?-?- 32w 1d 268 lb(+28 lb) 120/76 Negative -?-?-?-?-?-?-?-?-?-?-?-?- Negative [id number] 32 -?-?-?-?-?-?-?-?-?-?-?-?- SM- unable to keep on monitor for nst due to body habitus, sent for bpp. no vb lof good fm n oregular ctx BS controlled 07/13/23-?-?-?-?-?-?-?-?-?-?-?-?- 33w 1d 259 lb 6 oz(+19 lb 6 oz) 124/80 -?-?-?-?-?-?-?-?-?-?-?-?- 140 -?-?-?-?-?-?-?-?-?-?-?-?- JV- nst reactivce. normal growth last week. has rpt at 36 weeks. glucose levels normal but had to go up a little on her insulin. 07/17/23-?-?-?-?-?-?-?-?-?-?-?-?- 33w 5d 262 lb(+22 lb) 122/77 Negative -?-?-?-?-?-?-?-?-?-?-?-?- Negative 140 -?-?-?-?-?-?-?-?-?-?-?-?- NST only reactive 07/24/23-?-?-?-?-?-?-?-?-?-?-?-?- 34w 5d 262 lb 2 oz(+22 lb 2 oz) 120/81 -?-?-?-?-?-?-?-?-?-?-?-?- 140 35 -?-?-?-?-?-?-?-?-?-?-?-?- KW- no vb/cramping. good fm. reactive NST. Increase in insulin again. good fm. having increase urinary frequency. urine culture sent. 07/27/23-?-?-?-?-?-?-?-?-?-?-?-?- 35w 1d 262 lb 2 oz(+22 lb 2 oz) 113/79 Negative -?-?-?-?-?-?-?-?-?-?-?-?- Negative 140 -?-?-?-?-?-?-?-?-?-?-?-?- JV- nst reactive. up to 50 of NPH at night. planning 39 week delivery. pt wants to avoid induction. may not be possible to avoid. 07/31/23-?-?-?-?-?-?-?-?-?-?-?-?- 35w 5d 260 lb(+20 lb) 124/84 Negative -?-?-?-?-?-?-?-?-?-?-?-?- Negative 140 -?-?-?-?-?-?-?-?-?-?-?-?- kw- NST only. reactive. growth US on sunday before appt 08/03/23-?-?-?-?-?-?-?-?-?-?-?-?- 36w 1d 263 lb(+23 lb) 123/77 Negative -?-?-?-?-?-?-?-?-?-?-?-?- Negative 145 Cephalic 2-?-?-?-?-?-?-?-?-?-?-?-?- 70 -1 kw- no vb/lof/cramping. g rowth today 66%. gbs today kw- no vb/lof/cramping. growth today 66%. gbs today. would like to discuss timing of delivery with physician due to another increase in insulin over the last week. kw- no vb/lof/cramping. growth today 66%. gbs today. would like to discuss timing of delivery with physician due to another increase in insulin over the last week. Rescreen gcc next week. 08/07/23-?-?-?-?-?-?-?-?-?-?-?-?- 36w 5d 267 lb(+27 lb) 120/76 Negative -?-?-?-?-?-?-?-?-?-?-?-?- Negative 145 Cephalic -?-?-?-?-?-?-?-?-?-?-?-?- kw- NST only. urine GCC sent 08/10/23-?-?-?-?-?-?-?-?-?-?-?-?- 37w 1d 267 lb 2 oz(+27 lb 2 oz) 125/84 Negative -?-?-?-?-?-?-?-?-?-?-?-?- Negative 145 Cephalic 3-?-?-?-?-?-?-?-?-?-?-?-?- 60 -2 KW-Reactive NST. KW-Reactive NST. GCC neg. good fm. labor precautions reviewed. Had SD with 1ug05cm (approx 3486g) baby. This baby EFW 3458 at 38 weeks. Discussed possible P C/S with patient for Hx SD. Risk and benefits of vs P C/S. many questions addressed. Will discuss with SM on . 08/14/23-?-?-?-?-?-?-?-?-?-?-?-?- 37w 5d 267 lb 2 oz(+27 lb 2 oz) 124/79 Negative -?-?-?-?-?-?-?-?-?-?-?-?- Negative 140 -?-?-?-?-?-?-?-?-?-?-?-?- SM- BS reviewed and continuing increased insulin demands- uncontrolled. reviewed risks of shoulder dystocia, recommend primary cseciton due to EFW similar to last baby and now she is a diabetic. also uncontrolled diabetes recommend 38 week delivery due to this. will proceed with 38 weeks delivery. due to c seciton availability scheduled for sunday, bpp scheudled for end of week, if reassuring proceed with delivery sunday ACOG First Trimester First Trimester: Discussed Second Trimester Second Trimester: Signs and Symptoms of Labor, Selecting a care provider, Reproductive Life Planning & Contreception, Care Planning, Depression/Anxiety and Intimate Partner Violence; Discussed Tobacco Cessation Third Trimester Third Trimester: Pain Management Plans, Labor support person(s), Immediate Larc, Circumcision preference, Movement Monitoring, Signs and Symptoms of Preeclampsia, Feeding No and Family Medical Leave or Disability Forms; Discussed Tobacco Cessation ROS Const Reports system reviewed and no additional complaints, except as documented Card Reports system reviewed and no additional complaints, except as documented Resp Reports system reviewed and no additional complaints, except as documented GI Reports system reviewed and no additional complaints, except as documented and Reports nausea Reports system reviewed and no additional complaints, except as documented Musc Reports system reviewed and no additional complaints, except as documented Exam Const General: cooperative, healthy appearing, comfortable and anxious HENMT Head: normal to inspection Nose: external nose normal Face and sinus: normal facial exam Neck Neck: normal visual inspection, full ROM and no lymphadenopathy Thyroid: thyroid normal Chest Chest palpation & inspection: normal inspection of the chest Resp Effort & Inspection: normal respiratory effort GI Inspection: normal to inspection Palpation: soft and other (gravid uterus) Other: infant vertex and appropriate size for gestational age Other: Cervical Exam: Extrem General: pedal edema Office Procedures Non-stress Test Non-Stress Test Indications for Monitoring: Yes diabetes Heart Rate Baseline: 140 Heart Rate Variability: moderate Movement: Present Heart Rate Accelerations: Present Decelerations: Absent Contractions: Absent Impression: Yes Reactive Non-Stress Test Category 1 Results POC Urinalysis 2 Dip (Clinic) Office Urine Glucose Negative Last Edit by Maribel Crisostomo on 08/14/23 11:55 Office Urine Protein Negative Last Edit by Maribel Crisostomo on 08/14/23 11:55 Coding Level of Care Code Off vis,est,level 3 Diagnoses False labor before 37 completed weeks of gestation in third trimester O47.03 Back pain affecting in second trimester O99.891; M54.9 Trimester: second trimester Insulin controlled gestational diabetes mellitus (GDM) in first trimester O24.414 Gestational diabetes mellitus control: insulin-controlled Trimester: first trimester Chlamydia infection affecting in third trimester O98.813; A74.9 Trimester: third trimester History of shoulder dystocia in prior , currently O09.299 Obesity affecting in third trimester, unspecified obesity type O99.213 Obesity type affecting : unspecified obesity Trimester: third trimester Former cigarette smoker Z87.891 H/O pre-eclampsia in prior , currently O09.299 H/O depression, currently O99.891; Z86.59 Marijuana use F12.90 Supervision of high risk , antepartum O09.90 37 weeks gestation of Z3A.37 Weeks of gestation: 37 weeks CPT Codes Non-Stress Test (75108) Assessment and Plan Assessment and Plan (1) False labor before 37 completed weeks of gestation in third trimester: Status: Acute Comment: ROM plus negative on 07/25/23 (2) Back pain affecting : Status: Acute Qualifiers: Trimester: second trimester Qualified Code(s): O99.891 - Other specified diseases and conditions complicating ; M54.9 - Dorsalgia, unspecified (3) Gestational diabetes: Status: Acute Qualifiers: Gestational diabetes mellitus control: insulin-controlled Trimester: first trimester Qualified Code(s): O24.414 - Gestational diabetes mellitus in , insulin controlled Comment: primary csection 08/20 @ 7:15 with SM on insulin started at 11 weeks. NSTs starting 32 weeks twice weekly Growth US at 37 wk:67%. increasing insulin demands weekly, with limited control recommend delivery at 38 weeks (4) Chlamydia infection affecting : Status: Acute Qualifiers: Trimester: third trimester Qualified Code(s): O98.813 - Other maternal infectious and parasitic diseases complicating , third trimester; A74.9 - Chlamydial infection, unspecified Comment: Treated 01/29/23. 02/07/23:reexposure and retreated. 03/23/23- neg 08/07/23-neg (5) History of shoulder dystocia in prior , currently : Status: Acute Comment: EFW similar to last baby with moderate shoulder dystocia, and this rpegnancy is complicated with uncontrolled diabetes. recommend proceeding with primary cseciton at 38 weeks (6) Obesity affecting : Status: Acute Qualifiers: Obesity type affecting : unspecified obesity Trimester: third trimester Qualified Code(s): O99.213 - Obesity complicating , third trimester Comment: 1 tm gct abnl, encouraged healthy weight gain (7) Former cigarette smoker: Status: Acute Comment: Quit in October 2022. (8) H/O pre-eclampsia in prior , currently : Status: Acute Comment: baseline PIH labs at start of preg- prot: cr normal. (9) H/O depression, currently : Status: Acute (10) Marijuana use: Status: Acute Comment: encouraged cessation, plan random tox screen. Positive 12/06/19, 01/30/20, -01/24/23 Pt has medical marijuana card. Pt is using marijuana vape 2-3 times per day and states trying to quit. Counseling provided. (11) Supervision of high risk , antepartum: Status: Acute Comment: PRR , ANNA MARIE 08/30/23, boy, PC Andre, Andre (12) : Status: Acute Qualifiers: Weeks of gestation: 37 weeks Qualified Code(s): Z3A.37 - 37 weeks gestation of Comment: GBS neg, NIPT low risk, declined carrier testing Orders: Orders proceed with LTCS for history of shoulder dystocia, proceed now due to uncontrolled diabetes with increased insulin needs. 08/20/23 0740 <Electronically signed by Fadumo Zelaya MD> Cosigner Signature (if applicable): CC: INDUSTRIAL PSYCHOLOGY PROFESSORRaymundo Ruiz; Dr. Fadumo Zelaya MD~ Signed [facility] Work Phone: [phone]) [phone] NotePap Smear Specimen AdequacyJuly 2022 1:13pmComment.Satisfactory for evaluation. No endocervical component is identified.An endocervical component is not commonly seen in the patient.[facility] A#[id number] Hospital CompanyComment on above: Satisfactory for evaluation. No endocervical component is identified.An endocervical component is not commonly seen in the patient.01-25-2023 NotePap Smear Specimen AdequacyJuly 2022 1:13pmComment.Satisfactory for evaluation. No endocervical component is identified.An endocervical component is not commonly seen in the patient.[facility] INTER[facility] A#[id number] Hospital CompanyComhenry ford [facility] on above:Satisfactory for evaluation. No endocervical component is identified.An endocervical component is not commonly seen in the patient.01-25-2023 NotePap Smear Specimen AdequacyJuly 2022 1:13pmComment.Satisfactory for evaluation. No endocervical component is identified.An endocervical component is not commonly seen in the patient.[facility] INTER[facility] A#[id number] Hospital CompanyComment on above: Satisfactory for evaluation. No endocervical component is identified.An endocervical component is not commonly seen in the patient.Evaluation note* Diagnosis Onset Date Resolution Status Complete acute Former cigarette smoker acut e H/O miscarriage, currently acute H/O depression, currently acute H/O pre-eclampsia in prior , currently pregna nt acute History of shoulder dystocia in prior , currently acute Marijuana use acute Obesity affecting acute acute Seasonal allergies acute Supervision of high risk , antepartum acute [facility] Work Phone: Evaluation note* Diagnosis Onset Date Resolution Status Former cigarette smoker acut e H/O miscarriage, currently acute H/O depression, currently acute H/O pre-eclampsia in prior , currently pregna nt acute History of shoulder dystocia in prior , currently acute Marijuana use acute Obesity affecting acute acute Seasonal allergies acute Supervision of high risk , antepartum acute [facility] Work Phone: Evaluation note* Diagnosis Onset Date Resolution Status Former cigarette smoker acut e H/O depression, currently acute H/O pre-eclampsia in prior p regnancy, currently acute History of shoulder dystocia in prior , currently acute Marijuana use acute Obesity affecting acute acute Supervision of high risk , antepartum acute H/O miscarriage, currently resolved Seasonal allergies resolved Gestational diabetes acute Chlamydia infection affecting acute Former cigarette smoker acut e Gestational diabetes acute H/O depression, currently acute H/O pre-eclampsia in prior p regnancy, currently acute History of shoulder dystocia in prior , currently acute Marijuana use acute Obesity affecting acute acute Supervision of high risk , antepartum acute H/O miscarriage, currently resolved Seasonal allergies resolved Chlamydia infection affecting acute Former cigarette smoker acut e Gestational diabetes acute H/O depression, currently acute H/O pre-eclampsia in prior p regnancy, currently acute History of shoulder dystocia in prior , currently acute Marijuana use acute Obesity affecting acute acute Supervision of high risk , antepartum acute H/O miscarriage, currently resolved Seasonal allergies resolved [facility] Work Phone: Evaluation note* Diagnosis Onset Date Resolution Status Chlamydia infection affecting acute Former cigarette smoker acut e Gestational diabetes acute H/O depression, currently acute H/O pre-eclampsia in prior p regnancy, currently acute History of shoulder dystocia in prior , currently acute Marijuana use acute Obesity affecting acute acute Supervision of high risk , antepartum acute H/O miscarriage, currently resolved Seasonal allergies resolved Chlamydia infection affecting acute Former cigarette smoker acut e Gestational diabetes acute H/O depression, currently acute H/O pre-eclampsia in prior p regnancy, currently acute History of shoulder dystocia in prior , currently acute Marijuana use acute Obesity affecting acute acute Supervision of high risk , antepartum acute H/O miscarriage, currently resolved Seasonal allergies resolved Gestational diabetes acute Chlamydia infection affecting acute Former cigarette smoker acut e Gestational diabetes acute H/O depression, currently acute H/O pre-eclampsia in prior p regnancy, currently acute History of shoulder dystocia in prior , currently acute Marijuana use acute Obesity affecting acute acute Supervision of high risk , antepartum acute Chlamydia infection affecting acute Former cigarette smoker acut e Gestational diabetes acute H/O depression, currently acute H/O pre-eclampsia in prior p regnancy, currently acute History of shoulder dystocia in prior , currently acute Marijuana use acute Obesity affecting acute acute Supervision of high risk , antepartum acute [facility] Work Phone: Evaluation note* Diagnosis Onset Date Resolution Status Chlamydia infection affecting acute Former cigarette smoker acut e Gestational diabetes acute H/O depression, currently acute H/O pre-eclampsia in prior p regnancy, currently acute History of shoulder dystocia in prior , currently acute Marijuana use acute Obesity affecting acute acute Supervision of high risk , antepartum acute H/O miscarriage, currently resolved Seasonal allergies resolved Gestational diabetes acute Chlamydia infection affecting acute Former cigarette smoker acut e Gestational diabetes acute H/O depression, currently acute H/O pre-eclampsia in prior p regnancy, currently acute History of shoulder dystocia in prior , currently acute Marijuana use acute Obesity affecting acute acute Supervision of high risk , antepartum acute Chlamydia infection affecting acute Former cigarette smoker acut e Gestational diabetes acute H/O depression, currently acute H/O pre-eclampsia in prior p regnancy, currently acute History of shoulder dystocia in prior , currently acute Marijuana use acute Obesity affecting acute acute Supervision of high risk , antepartum acute Back pain affecting acute Gestational diabetes acute H/O depression, currently acute H/O pre-eclampsia in prior p regnancy, currently acute Marijuana use acute acute Supervision of high risk , antepartum acute Back pain affecting acute Chlamydia infection affecting acute Former cigarette smoker acut e Gestational diabetes acute H/O depression, currently acute H/O pre-eclampsia in prior p regnancy, currently acute History of shoulder dystocia in prior , currently acute Marijuana use acute Obesity affecting acute acute Supervision of high risk , antepartum acute [facility] Work Phone: Evaluation note* Diagnosis Onset Date Resolution Status Chlamydia infection affecting acute Former cigarette smoker acut e Gestational diabetes acute H/O depression, currently acute H/O pre-eclampsia in prior p regnancy, currently acute History of shoulder dystocia in prior , currently acute Marijuana use acute Obesity affecting acute acute Supervision of high risk , antepartum acute H/O miscarriage, currently resolved Seasonal allergies resolved Gestational diabetes acute Chlamydia infection affecting acute Former cigarette smoker acut e Gestational diabetes acute H/O depression, currently acute H/O pre-eclampsia in prior p regnancy, currently acute History of shoulder dystocia in prior , currently acute Marijuana use acute Obesity affecting acute acute Supervision of high risk , antepartum acute Chlamydia infection affecting acute Former cigarette smoker acut e Gestational diabetes acute H/O depression, currently acute H/O pre-eclampsia in prior p regnancy, currently acute History of shoulder dystocia in prior , currently acute Marijuana use acute Obesity affecting acute acute Supervision of high risk , antepartum acute Back pain affecting acute Gestational diabetes acute H/O depression, currently acute H/O pre-eclampsia in prior p regnancy, currently acute Marijuana use acute acute Supervision of high risk , antepartum acute Back pain affecting acute Chlamydia infection affecting acute Former cigarette smoker acut e Gestational diabetes acute H/O depression, currently acute H/O pre-eclampsia in prior p regnancy, currently acute History of shoulder dystocia in prior , currently acute Marijuana use acute Obesity affecting acute acute Supervision of high risk , antepartum acute Back pain affecting acute Chlamydia infection affecting acute Former cigarette smoker acut e Gestational diabetes acute H/O depression, currently acute H/O pre-eclampsia in prior p regnancy, currently acute History of shoulder dystocia in prior , currently acute Marijuana use acute Obesity affecting acute acute Supervision of high risk , antepartum acute [facility] Work Phone: Evaluation note* Diagnosis Onset Date Resolution Status Gestational diabetes acute Chlamydia infection affecting acute Former cigarette smoker acut e Gestational diabetes acute H/O depression, currently acute H/O pre-eclampsia in prior , currently pregna nt acute History of shoulder dystocia in prior , currently acute Marijuana use acute Obesity affecting acute acute Supervision of high risk , antepartum acute Chlamydia infection affecting acute Former cigarette smoker acut e Gestational diabetes acute H/O depression, currently acute H/O pre-eclampsia in prior , currently pregna nt acute History of shoulder dystocia in prior , currently acute Marijuana use acute Obesity affecting acute acute Supervision of high risk , antepartum acute Back pain affecting acute Gestational diabetes acute H/O depression, currently acute H/O pre-eclampsia in prior , currently pregna nt acute Marijuana use acute acute Supervision of high risk , antepartum acute Back pain affecting acute Chlamydia infection affecting acute Former cigarette smoker acut e Gestational diabetes acute H/O depression, currently acute H/O pre-eclampsia in prior , currently pregna nt acute History of shoulder dystocia in prior , currently acute Marijuana use acute Obesity affecting acute acute Supervision of high risk , antepartum acute Back pain affecting acute Chlamydia infection affecting acute Former cigarette smoker acut e Gestational diabetes acute H/O depression, currently acute H/O pre-eclampsia in prior , currently pregna nt acute History of shoulder dystocia in prior , currently acute Marijuana use acute Obesity affecting acute acute Supervision of high risk , antepartum acute Back pain affecting acute Chlamydia infection affecting acute Former cigarette smoker acut e Gestational diabetes acute H/O depression, currently acute H/O pre-eclampsia in prior , currently pregna nt acute History of shoulder dystocia in prior , currently acute Marijuana use acute Obesity affecting acute acute Supervision of high risk , antepartum acute Back pain affecting acute Chlamydia infection affecting acute Former cigarette smoker acut e Gestational diabetes acute H/O depression, currently acute H/O pre-eclampsia in prior , currently pregna nt acute History of shoulder dystocia in prior , currently acute Marijuana use acute Obesity affecting acute acute Supervision of high risk , antepartum acute Back pain affecting acute Chlamydia infection affecting acute Former cigarette smoker acut e Gestational diabetes acute H/O depression, currently acute H/O pre-eclampsia in prior , currently pregna nt acute History of shoulder dystocia in prior , currently acute Marijuana use acute Obesity affecting acute acute Supervision of high risk , antepartum acute [facility] Work Phone: Evaluation note* Diagnosis Onset Date Resolution Status Gestational diabetes acute Chlamydia infection affecting acute Former cigarette smoker acut e Gestational diabetes acute H/O depression, currently acute H/O pre-eclampsia in prior , currently pregna nt acute History of shoulder dystocia in prior , currently acute Marijuana use acute Obesity affecting acute acute Supervision of high risk , antepartum acute Chlamydia infection affecting acute Former cigarette smoker acut e Gestational diabetes acute H/O depression, currently acute H/O pre-eclampsia in prior , currently pregna nt acute History of shoulder dystocia in prior , currently acute Marijuana use acute Obesity affecting acute acute Supervision of high risk , antepartum acute Back pain affecting acute Gestational diabetes acute H/O depression, currently acute H/O pre-eclampsia in prior , currently pregna nt acute Marijuana use acute acute Supervision of high risk , antepartum acute Back pain affecting acute Chlamydia infection affecting acute Former cigarette smoker acut e Gestational diabetes acute H/O depression, currently acute H/O pre-eclampsia in prior , currently pregna nt acute History of shoulder dystocia in prior , currently acute Marijuana use acute Obesity affecting acute acute Supervision of high risk , antepartum acute Back pain affecting acute Chlamydia infection affecting acute Former cigarette smoker acut e Gestational diabetes acute H/O depression, currently acute H/O pre-eclampsia in prior , currently pregna nt acute History of shoulder dystocia in prior , currently acute Marijuana use acute Obesity affecting acute acute Supervision of high risk , antepartum acute Back pain affecting acute Chlamydia infection affecting acute Former cigarette smoker acut e Gestational diabetes acute H/O depression, currently acute H/O pre-eclampsia in prior , currently pregna nt acute History of shoulder dystocia in prior , currently acute Marijuana use acute Obesity affecting acute acute Supervision of high risk , antepartum acute Back pain affecting acute Chlamydia infection affecting acute Former cigarette smoker acut e Gestational diabetes acute H/O depression, currently acute H/O pre-eclampsia in prior , currently pregna nt acute History of shoulder dystocia in prior , currently acute Marijuana use acute Obesity affecting acute acute Supervision of high risk , antepartum acute Back pain affecting acute Chlamydia infection affecting acute Former cigarette smoker acut e Gestational diabetes acute H/O depression, currently acute H/O pre-eclampsia in prior , currently pregna nt acute History of shoulder dystocia in prior , currently acute Marijuana use acute Obesity affecting acute acute Supervision of high risk , antepartum acute Back pain affecting acute Chlamydia infection affecting acute False labor before 37 comple hiram weeks of gestation in third trimester acute Former cigarette smoker acut e Gestational diabetes acute H/O depression, currently acute H/O pre-eclampsia in prior , currently pregna nt acute History of shoulder dystocia in prior , currently acute Marijuana use acute Obesity affecting acute acute Supervision of high risk , antepartum acute [facility] Work Phone: Evaluation note* Diagnosis Onset Date Resolution Status Gestational diabetes acute Chlamydia infection affecting acute Former cigarette smoker acut e Gestational diabetes acute H/O depression, currently acute H/O pre-eclampsia in prior , currently pregna nt acute History of shoulder dystocia in prior , currently acute Marijuana use acute Obesity affecting acute acute Supervision of high risk , antepartum acute Chlamydia infection affecting acute Former cigarette smoker acut e Gestational diabetes acute H/O depression, currently acute H/O pre-eclampsia in prior , currently pregna nt acute History of shoulder dystocia in prior , currently acute Marijuana use acute Obesity affecting acute acute Supervision of high risk , antepartum acute Back pain affecting acute Gestational diabetes acute H/O depression, currently acute H/O pre-eclampsia in prior , currently pregna nt acute Marijuana use acute acute Supervision of high risk , antepartum acute Back pain affecting acute Chlamydia infection affecting acute Former cigarette smoker acut e Gestational diabetes acute H/O depression, currently acute H/O pre-eclampsia in prior , currently pregna nt acute History of shoulder dystocia in prior , currently acute Marijuana use acute Obesity affecting acute acute Supervision of high risk , antepartum acute Back pain affecting acute Chlamydia infection affecting acute Former cigarette smoker acut e Gestational diabetes acute H/O depression, currently acute H/O pre-eclampsia in prior , currently pregna nt acute History of shoulder dystocia in prior , currently acute Marijuana use acute Obesity affecting acute acute Supervision of high risk , antepartum acute Back pain affecting acute Chlamydia infection affecting acute Former cigarette smoker acut e Gestational diabetes acute H/O depression, currently acute H/O pre-eclampsia in prior , currently pregna nt acute History of shoulder dystocia in prior , currently acute Marijuana use acute Obesity affecting acute acute Supervision of high risk , antepartum acute Back pain affecting acute Chlamydia infection affecting acute Former cigarette smoker acut e Gestational diabetes acute H/O depression, currently acute H/O pre-eclampsia in prior , currently pregna nt acute History of shoulder dystocia in prior , currently acute Marijuana use acute Obesity affecting acute acute Supervision of high risk , antepartum acute Back pain affecting acute Chlamydia infection affecting acute Former cigarette smoker acut e Gestational diabetes acute H/O depression, currently acute H/O pre-eclampsia in prior , currently pregna nt acute History of shoulder dystocia in prior , currently acute Marijuana use acute Obesity affecting acute acute Supervision of high risk , antepartum acute Back pain affecting acute Chlamydia infection affecting acute False labor before 37 comple hiram weeks of gestation in third trimester acute Former cigarette smoker acut e Gestational diabetes acute H/O depression, currently acute H/O pre-eclampsia in prior , currently pregna nt acute History of shoulder dystocia in prior , currently acute Marijuana use acute Obesity affecting acute acute Supervision of high risk , antepartum acute Back pain affecting acute Chlamydia infection affecting acute False labor before 37 comple hiram weeks of gestation in third trimester acute Former cigarette smoker acut e Gestational diabetes acute H/O depression, currently acute H/O pre-eclampsia in prior , currently pregna nt acute History of shoulder dystocia in prior , currently acute Marijuana use acute Obesity affecting acute acute Supervision of high risk , antepartum acute Back pain affecting acute Chlamydia infection affecting acute False labor before 37 comple hiram weeks of gestation in third trimester acute Former cigarette smoker acut e Gestational diabetes acute H/O depression, currently acute H/O pre-eclampsia in prior , currently pregna nt acute History of shoulder dystocia in prior , currently acute Marijuana use acute Obesity affecting acute acute Supervision of high risk , antepartum acute Back pain affecting acute Chlamydia infection affecting acute False labor before 37 comple hiram weeks of gestation in third trimester acute Former cigarette smoker acut e Gestational diabetes acute H/O depression, currently acute H/O pre-eclampsia in prior , currently pregna nt acute History of shoulder dystocia in prior , currently acute Marijuana use acute Obesity affecting acute acute Supervision of high risk , antepartum acute Back pain affecting acute Chlamydia infection affecting acute False labor before 37 comple hiram weeks of gestation in third trimester acute Former cigarette smoker acut e Gestational diabetes acute H/O depression, currently acute H/O pre-eclampsia in prior , currently pregna nt acute History of shoulder dystocia in prior , currently acute Marijuana use acute Obesity affecting acute acute Supervision of high risk , antepartum acute [facility] Work Phone: Evaluation note* Diagnosis Onset Date Resolution Status Gestational diabetes acute Chlamydia infection affecting acute Former cigarette smoker acut e Gestational diabetes acute H/O depression, currently acute H/O pre-eclampsia in prior , currently pregna nt acute History of shoulder dystocia in prior , currently acute Marijuana use acute Obesity affecting acute acute Supervision of high risk , antepartum acute Chlamydia infection affecting acute Former cigarette smoker acut e Gestational diabetes acute H/O depression, currently acute H/O pre-eclampsia in prior , currently pregna nt acute History of shoulder dystocia in prior , currently acute Marijuana use acute Obesity affecting acute acute Supervision of high risk , antepartum acute Back pain affecting acute Gestational diabetes acute H/O depression, currently acute H/O pre-eclampsia in prior , currently pregna nt acute Marijuana use acute acute Supervision of high risk , antepartum acute Back pain affecting acute Chlamydia infection affecting acute Former cigarette smoker acut e Gestational diabetes acute H/O depression, currently acute H/O pre-eclampsia in prior , currently pregna nt acute History of shoulder dystocia in prior , currently acute Marijuana use acute Obesity affecting acute acute Supervision of high risk , antepartum acute Back pain affecting acute Chlamydia infection affecting acute Former cigarette smoker acut e Gestational diabetes acute H/O depression, currently acute H/O pre-eclampsia in prior , currently pregna nt acute History of shoulder dystocia in prior , currently acute Marijuana use acute Obesity affecting acute acute Supervision of high risk , antepartum acute Back pain affecting acute Chlamydia infection affecting acute Former cigarette smoker acut e Gestational diabetes acute H/O depression, currently acute H/O pre-eclampsia in prior , currently pregna nt acute History of shoulder dystocia in prior , currently acute Marijuana use acute Obesity affecting acute acute Supervision of high risk , antepartum acute Back pain affecting acute Chlamydia infection affecting acute Former cigarette smoker acut e Gestational diabetes acute H/O depression, currently acute H/O pre-eclampsia in prior , currently pregna nt acute History of shoulder dystocia in prior , currently acute Marijuana use acute Obesity affecting acute acute Supervision of high risk , antepartum acute Back pain affecting acute Chlamydia infection affecting acute Former cigarette smoker acut e Gestational diabetes acute H/O depression, currently acute H/O pre-eclampsia in prior , currently pregna nt acute History of shoulder dystocia in prior , currently acute Marijuana use acute Obesity affecting acute acute Supervision of high risk , antepartum acute Back pain affecting acute Chlamydia infection affecting acute False labor before 37 comple hiram weeks of gestation in third trimester acute Former cigarette smoker acut e Gestational diabetes acute H/O depression, currently acute H/O pre-eclampsia in prior , currently pregna nt acute History of shoulder dystocia in prior , currently acute Marijuana use acute Obesity affecting acute acute Supervision of high risk , antepartum acute Back pain affecting acute Chlamydia infection affecting acute False labor before 37 comple hiram weeks of gestation in third trimester acute Former cigarette smoker acut e Gestational diabetes acute H/O depression, currently acute H/O pre-eclampsia in prior , currently pregna nt acute History of shoulder dystocia in prior , currently acute Marijuana use acute Obesity affecting acute acute Supervision of high risk , antepartum acute Back pain affecting acute Chlamydia infection affecting acute False labor before 37 comple hiram weeks of gestation in third trimester acute Former cigarette smoker acut e Gestational diabetes acute H/O depression, currently acute H/O pre-eclampsia in prior , currently pregna nt acute History of shoulder dystocia in prior , currently acute Marijuana use acute Obesity affecting acute acute Supervision of high risk , antepartum acute Back pain affecting acute Chlamydia infection affecting acute False labor before 37 comple hiram weeks of gestation in third trimester acute Former cigarette smoker acut e Gestational diabetes acute H/O depression, currently acute H/O pre-eclampsia in prior , currently pregna nt acute History of shoulder dystocia in prior , currently acute Marijuana use acute Obesity affecting acute acute Supervision of high risk , antepartum acute Back pain affecting acute Chlamydia infection affecting acute False labor before 37 comple hiram weeks of gestation in third trimester acute Former cigarette smoker acut e Gestational diabetes acute H/O depression, currently acute H/O pre-eclampsia in prior , currently pregna nt acute History of shoulder dystocia in prior , currently acute Marijuana use acute Obesity affecting acute acute Supervision of high risk , antepartum acute Back pain affecting acute Chlamydia infection affecting acute False labor before 37 comple hiram weeks of gestation in third trimester acute Former cigarette smoker acut e Gestational diabetes acute H/O depression, currently acute H/O pre-eclampsia in prior , currently pregna nt acute History of shoulder dystocia in prior , currently acute Marijuana use acute Obesity affecting acute acute Supervision of high risk , antepartum acute [facility] Work Phone: Evaluation note* Diagnosis Onset Date Resolution Status Gestational diabetes acute Gestational diabetes acute Marijuana use acute Chlamydia infection affecting resolved Former cigarette smoker reso lved H/O depression, currently resolved H/O pre-eclampsia in prior p regnancy, currently resolved History of shoulder dystocia in prior , currently resolved Obesity affecting resolved resolved Supervision of high risk , antepartum resolved Gestational diabetes acute Marijuana use acute Chlamydia infection affecting resolved Former cigarette smoker reso lved H/O depression, currently resolved H/O pre-eclampsia in prior p regnancy, currently resolved History of shoulder dystocia in prior , currently resolved Obesity affecting resolved resolved Supervision of high risk , antepartum resolved Gestational diabetes acute Marijuana use acute Back pain affecting resolved H/O depression, currently resolved H/O pre-eclampsia in prior p regnancy, currently resolved resolved Supervision of high risk , antepartum resolved Gestational diabetes acute Marijuana use acute Back pain affecting resolved Chlamydia infection affecting resolved Former cigarette smoker reso lved H/O depression, currently resolved H/O pre-eclampsia in prior p regnancy, currently resolved History of shoulder dystocia in prior , currently resolved Obesity affecting resolved resolved Supervision of high risk , antepartum resolved Gestational diabetes acute Marijuana use acute Back pain affecting resolved Chlamydia infection affecting resolved Former cigarette smoker reso lved H/O depression, currently resolved H/O pre-eclampsia in prior p regnancy, currently resolved History of shoulder dystocia in prior , currently resolved Obesity affecting resolved resolved Supervision of high risk , antepartum resolved Gestational diabetes acute Marijuana use acute Back pain affecting resolved Chlamydia infection affecting resolved Former cigarette smoker reso lved H/O depression, currently resolved H/O pre-eclampsia in prior p regnancy, currently resolved History of shoulder dystocia in prior , currently resolved Obesity affecting resolved resolved Supervision of high risk , antepartum resolved Gestational diabetes acute Marijuana use acute Back pain affecting resolved Chlamydia infection affecting resolved Former cigarette smoker reso lved H/O depression, currently resolved H/O pre-eclampsia in prior p regnancy, currently resolved History of shoulder dystocia in prior , currently resolved Obesity affecting resolved resolved Supervision of high risk , antepartum resolved Gestational diabetes acute Marijuana use acute Back pain affecting resolved Chlamydia infection affecting resolved Former cigarette smoker reso lved H/O depression, currently resolved H/O pre-eclampsia in prior p regnancy, currently resolved History of shoulder dystocia in prior , currently resolved Obesity affecting resolved resolved Supervision of high risk , antepartum resolved Gestational diabetes acute Marijuana use acute Back pain affecting resolved Chlamydia infection affecting resolved False labor before 37 comple hiram weeks of gestation in third trimester resolved Former cigarette smoker reso lved H/O depression, currently resolved H/O pre-eclampsia in prior p regnancy, currently resolved History of shoulder dystocia in prior , currently resolved Obesity affecting resolved resolved Supervision of high risk , antepartum resolved Gestational diabetes acute Marijuana use acute Back pain affecting resolved Chlamydia infection affecting resolved False labor before 37 comple hiram weeks of gestation in third trimester resolved Former cigarette smoker reso lved H/O depression, currently resolved H/O pre-eclampsia in prior p regnancy, currently resolved History of shoulder dystocia in prior , currently resolved Obesity affecting resolved resolved Supervision of high risk , antepartum resolved Gestational diabetes acute Marijuana use acute Back pain affecting resolved Chlamydia infection affecting resolved False labor before 37 comple hiram weeks of gestation in third trimester resolved Former cigarette smoker reso lved H/O depression, currently resolved H/O pre-eclampsia in prior p regnancy, currently resolved History of shoulder dystocia in prior , currently resolved Obesity affecting resolved resolved Supervision of high risk , antepartum resolved Gestational diabetes acute Marijuana use acute Back pain affecting resolved Chlamydia infection affecting resolved False labor before 37 comple hiram weeks of gestation in third trimester resolved Former cigarette smoker reso lved H/O depression, currently resolved H/O pre-eclampsia in prior p regnancy, currently resolved History of shoulder dystocia in prior , currently resolved Obesity affecting resolved resolved Supervision of high risk , antepartum resolved Gestational diabetes acute Marijuana use acute Back pain affecting resolved Chlamydia infection affecting resolved False labor before 37 comple hiram weeks of gestation in third trimester resolved Former cigarette smoker reso lved H/O depression, currently resolved H/O pre-eclampsia in prior p regnancy, currently resolved History of shoulder dystocia in prior , currently resolved Obesity affecting resolved resolved Supervision of high risk , antepartum resolved Gestational diabetes acute Marijuana use acute Back pain affecting resolved Chlamydia infection affecting resolved False labor before 37 comple hiram weeks of gestation in third trimester resolved Former cigarette smoker reso lved H/O depression, currently resolved H/O pre-eclampsia in prior p regnancy, currently resolved History of shoulder dystocia in prior , currently resolved Obesity affecting resolved resolved Supervision of high risk , antepartum resolved Gestational diabetes acute Marijuana use acute Back pain affecting resolved Chlamydia infection affecting resolved False labor before 37 comple hiram weeks of gestation in third trimester resolved Former cigarette smoker reso lved H/O depression, currently resolved H/O pre-eclampsia in prior p regnancy, currently resolved History of shoulder dystocia in prior , currently resolved Obesity affecting resolved resolved Supervision of high risk , antepartum resolved delivery delivered acute Gestational diabetes acute Marijuana use acute Chlamydia infection affecting resolved Former cigarette smoker reso lved H/O depression, currently resolved H/O pre-eclampsia in prior p regnancy, currently resolved History of shoulder dystocia in prior , currently resolved Obesity affecting resolved resolved Supervision of high risk , antepartum resolved [facility] Work Phone: Reason for referral (narrative)No reason for referral information [facility] Work [facility]: Summary Purpose Family History Relationship Condition Age at Onset Recorded Date/T roxanne mother Diabetes mellitus Unknown grandfather Diabetes mellitus Unknown Advance Directives Advance Directive Response Recorded Date/ Time Living Will No July 05 2 2:08pm Power of Information [employer] Data Analyst No July 05, 2 022 2:08pm Advance Directive Response Recorded Date/ Time Living Will No July 05 2 1:08pm Power of Information [employer] Data Analyst No July 05, 2 022 1:08pm Advance Directive Response Recorded Date/ Time Living Will No June 19, 2 023 2:28pm Power of Information [employer] Data Analyst No June 19, 2023 2:28pm Advance Directive Response Recorded Date/ Time Living Will No August 20, 2 024 7:05am Power of [employer] Data [employer]st No August 20, 2023 7:05am Chief Complaint and Reason for Visit Chief Complaint NOB LMP 11/23 DATING Reason for Visit Complete Former cigarette smoker H/O miscarriage, currently H/O depression, currently H/O pre-eclampsia in prior , currently History of shoulder dystocia in prior , currently Marijuana use Obesity affecting Seasonal allergies Supervision of high risk , antepartum Chief Complaint NOB LMP 11/23 DATING Reason for Visit Former cigarette smo ker H/O miscarriage, currently H/O depression, currently H/O pre-eclampsia in prior , currently History of shoulder dystocia in prior , currently Marijuana use Obesity affecting Seasonal allergies Supervision of high risk , antepartum Chief Complaint NOB LMP 11/23 DATING Gestational Diabetes 13 WK OB 17 WK OB ANTEPARTUM Reason for Visit Former cigarette smo ker H/O depression, currently H/O pre-eclampsia in prior , currently History of shoulder dystocia in prior , currently Marijuana use Obesity affecting Supervision of high risk , antepartum H/O miscarriage, currently Seasonal allergies Gestational diabetes Chlamydia infection affecting Former cigarette smoker Gestational diabetes H/O depression, currently H/O pre-eclampsia in prior , currently History of shoulder dystocia in prior , currently Marijuana use Obesity affecting Supervision of high risk , antepartum H/O miscarriage, currently Seasonal allergies Chlamydia infection affecting Former cigarette smoker Gestational diabetes H/O depression, currently H/O pre-eclampsia in prior , currently History of shoulder dystocia in prior , currently Marijuana use Obesity affecting Supervision of high risk , antepartum H/O miscarriage, currently Seasonal allergies Chief Complaint 13 WK OB 17 WK OB ANTEPARTUM 3 M FU 25 WK OB 28 WK OB/GLUCOSE SPECIFIED DISEASE AFFECTING Reason for Visit Chlamydia infection affecting Former cigarette smoker Gestational diabetes H/O depression, currently H/O pre-eclampsia in prior , currently History of shoulder dystocia in prior , currently Marijuana use Obesity affecting Supervision of high risk , antepartum H/O miscarriage, currently Seasonal allergies Chlamydia infection affecting Former cigarette smoker Gestational diabetes H/O depression, currently H/O pre-eclampsia in prior , currently History of shoulder dystocia in prior , currently Marijuana use Obesity affecting Supervision of high risk , antepartum H/O miscarriage, currently Seasonal allergies Gestational diabetes Chlamydia infection affecting Former cigarette smoker Gestational diabetes H/O depression, currently H/O pre-eclampsia in prior , currently History of shoulder dystocia in prior , currently Marijuana use Obesity affecting Supervision of high risk , antepartum Chlamydia infection affecting Former cigarette smoker Gestational diabetes H/O depression, currently H/O pre-eclampsia in prior , currently History of shoulder dystocia in prior , currently Marijuana use Obesity affecting Supervision of high risk , antepartum Chief Complaint 17 WK OB ANTEPARTUM 3 M FU 25 WK OB 28 WK OB/GLUCOSE SPECIFIED DISEASE AFFECTING OB - BP, Urine. US at 11 RUQ PAIN 30 WK OB Reason for Visit Chlamydia infection affecting Former cigarette smoker Gestational diabetes H/O depression, currently H/O pre-eclampsia in prior , currently History of shoulder dystocia in prior , currently Marijuana use Obesity affecting Supervision of high risk , antepartum H/O miscarriage, currently Seasonal allergies Gestational diabetes Chlamydia infection affecting Former cigarette smoker Gestational diabetes H/O depression, currently H/O pre-eclampsia in prior , currently History of shoulder dystocia in prior , currently Marijuana use Obesity affecting Supervision of high risk , antepartum Chlamydia infection affecting Former cigarette smoker Gestational diabetes H/O depression, currently H/O pre-eclampsia in prior , currently History of shoulder dystocia in prior , currently Marijuana use Obesity affecting Supervision of high risk , antepartum Back pain affecting Gestational diabetes H/O depression, currently H/O pre-eclampsia in prior , currently Marijuana use Supervision of high risk , antepartum Back pain affecting Chlamydia infection affecting Former cigarette smoker Gestational diabetes H/O depression, currently H/O pre-eclampsia in prior , currently History of shoulder dystocia in prior , currently Marijuana use Obesity affecting Supervision of high risk , antepartum Chief Complaint 17 WK OB ANTEPARTUM 3 M FU 25 WK OB 28 WK OB/GLUCOSE SPECIFIED DISEASE AFFECTING OB - BP, Urine. US at 11 RUQ PAIN 30 WK OB 32 WK OB/NST GESTATIONAL DIABETES IN Reason for Visit Chlamydia infection affecting Former cigarette smoker Gestational diabetes H/O depression, currently H/O pre-eclampsia in prior , currently History of shoulder dystocia in prior , currently Marijuana use Obesity affecting Supervision of high risk , antepartum H/O miscarriage, currently Seasonal allergies Gestational diabetes Chlamydia infection affecting Former cigarette smoker Gestational diabetes H/O depression, currently H/O pre-eclampsia in prior , currently History of shoulder dystocia in prior , currently Marijuana use Obesity affecting Supervision of high risk , antepartum Chlamydia infection affecting Former cigarette smoker Gestational diabetes H/O depression, currently H/O pre-eclampsia in prior , currently History of shoulder dystocia in prior , currently Marijuana use Obesity affecting Supervision of high risk , antepartum Back pain affecting Gestational diabetes H/O depression, currently H/O pre-eclampsia in prior , currently Marijuana use Supervision of high risk , antepartum Back pain affecting Chlamydia infection affecting Former cigarette smoker Gestational diabetes H/O depression, currently H/O pre-eclampsia in prior , currently History of shoulder dystocia in prior , currently Marijuana use Obesity affecting Supervision of high risk , antepartum Back pain affecting Chlamydia infection affecting Former cigarette smoker Gestational diabetes H/O depression, currently H/O pre-eclampsia in prior , currently History of shoulder dystocia in prior , currently Marijuana use Obesity affecting Supervision of high risk , antepartum Chief Complaint ANTEPARTUM 3 M FU 25 WK OB 28 WK OB/GLUCOSE SPECIFIED DISEASE AFFECTING OB - BP, Urine. US at 11 RUQ PAIN 30 WK OB 32 WK OB/NST GESTATIONAL DIABETES IN NST NST NST R/O LABOR Reason for Visit Gestational diabetes Chlamydia infection affecting Former cigarette smoker Gestational diabetes H/O depression, currently H/O pre-eclampsia in prior , currently History of shoulder dystocia in prior , currently Marijuana use Obesity affecting Supervision of high risk , antepartum Chlamydia infection affecting Former cigarette smoker Gestational diabetes H/O depression, currently H/O pre-eclampsia in prior , currently History of shoulder dystocia in prior , currently Marijuana use Obesity affecting Supervision of high risk , antepartum Back pain affecting Gestational diabetes H/O depression, currently H/O pre-eclampsia in prior , currently Marijuana use Supervision of high risk , antepartum Back pain affecting Chlamydia infection affecting Former cigarette smoker Gestational diabetes H/O depression, currently H/O pre-eclampsia in prior , currently History of shoulder dystocia in prior , currently Marijuana use Obesity affecting Supervision of high risk , antepartum Back pain affecting Chlamydia infection affecting Former cigarette smoker Gestational diabetes H/O depression, currently H/O pre-eclampsia in prior , currently History of shoulder dystocia in prior , currently Marijuana use Obesity affecting Supervision of high risk , antepartum Back pain affecting Chlamydia infection affecting Former cigarette smoker Gestational diabetes H/O depression, currently H/O pre-eclampsia in prior , currently History of shoulder dystocia in prior , currently Marijuana use Obesity affecting Supervision of high risk , antepartum Back pain affecting Chlamydia infection affecting Former cigarette smoker Gestational diabetes H/O depression, currently H/O pre-eclampsia in prior , currently History of shoulder dystocia in prior , currently Marijuana use Obesity affecting Supervision of high risk , antepartum Back pain affecting Chlamydia infection affecting Former cigarette smoker Gestational diabetes H/O depression, currently H/O pre-eclampsia in prior , currently History of shoulder dystocia in prior , currently Marijuana use Obesity affecting Supervision of high risk , antepartum Chief Complaint ANTEPARTUM 3 M FU 25 WK OB 28 WK OB/GLUCOSE SPECIFIED DISEASE AFFECTING OB - BP, Urine. US at 11 RUQ PAIN 30 WK OB 32 WK OB/NST GESTATIONAL DIABETES IN NST NST NST R/O LABOR R/O LABOR Reason for Visit Gestational diabetes Chlamydia infection affecting Former cigarette smoker Gestational diabetes H/O depression, currently H/O pre-eclampsia in prior , currently History of shoulder dystocia in prior , currently Marijuana use Obesity affecting Supervision of high risk , antepartum Chlamydia infection affecting Former cigarette smoker Gestational diabetes H/O depression, currently H/O pre-eclampsia in prior , currently History of shoulder dystocia in prior , currently Marijuana use Obesity affecting Supervision of high risk , antepartum Back pain affecting Gestational diabetes H/O depression, currently H/O pre-eclampsia in prior , currently Marijuana use Supervision of high risk , antepartum Back pain affecting Chlamydia infection affecting Former cigarette smoker Gestational diabetes H/O depression, currently H/O pre-eclampsia in prior , currently History of shoulder dystocia in prior , currently Marijuana use Obesity affecting Supervision of high risk , antepartum Back pain affecting Chlamydia infection affecting Former cigarette smoker Gestational diabetes H/O depression, currently H/O pre-eclampsia in prior , currently History of shoulder dystocia in prior , currently Marijuana use Obesity affecting Supervision of high risk , antepartum Back pain affecting Chlamydia infection affecting Former cigarette smoker Gestational diabetes H/O depression, currently H/O pre-eclampsia in prior , currently History of shoulder dystocia in prior , currently Marijuana use Obesity affecting Supervision of high risk , antepartum Back pain affecting Chlamydia infection affecting Former cigarette smoker Gestational diabetes H/O depression, currently H/O pre-eclampsia in prior , currently History of shoulder dystocia in prior , currently Marijuana use Obesity affecting Supervision of high risk , antepartum Back pain affecting Chlamydia infection affecting Former cigarette smoker Gestational diabetes H/O depression, currently H/O pre-eclampsia in prior , currently History of shoulder dystocia in prior , currently Marijuana use Obesity affecting Supervision of high risk , antepartum Back pain affecting Chlamydia infection affecting False labor before 37 completed weeks of gestation in third trimester Former cigarette smoker Gestational diabetes H/O depression, currently H/O pre-eclampsia in prior , currently History of shoulder dystocia in prior , currently Marijuana use Obesity affecting Supervision of high risk , antepartum Chief Complaint ANTEPARTUM 3 M FU 25 WK OB 28 WK OB/GLUCOSE SPECIFIED DISEASE AFFECTING OB - BP, Urine. US at 11 RUQ PAIN 30 WK OB 32 WK OB/NST GESTATIONAL DIABETES IN NST NST NST R/O LABOR R/O LABOR NST NST GESTATIONAL DIABETES IN 36 WK OB/NST NST Reason for Visit Gestational diabetes Chlamydia infection affecting Former cigarette smoker Gestational diabetes H/O depression, currently H/O pre-eclampsia in prior , currently History of shoulder dystocia in prior , currently Marijuana use Obesity affecting Supervision of high risk , antepartum Chlamydia infection affecting Former cigarette smoker Gestational diabetes H/O depression, currently H/O pre-eclampsia in prior , currently History of shoulder dystocia in prior , currently Marijuana use Obesity affecting Supervision of high risk , antepartum Back pain affecting Gestational diabetes H/O depression, currently H/O pre-eclampsia in prior , currently Marijuana use Supervision of high risk , antepartum Back pain affecting Chlamydia infection affecting Former cigarette smoker Gestational diabetes H/O depression, currently H/O pre-eclampsia in prior , currently History of shoulder dystocia in prior , currently Marijuana use Obesity affecting Supervision of high risk , antepartum Back pain affecting Chlamydia infection affecting Former cigarette smoker Gestational diabetes H/O depression, currently H/O pre-eclampsia in prior , currently History of shoulder dystocia in prior , currently Marijuana use Obesity affecting Supervision of high risk , antepartum Back pain affecting Chlamydia infection affecting Former cigarette smoker Gestational diabetes H/O depression, currently H/O pre-eclampsia in prior , currently History of shoulder dystocia in prior , currently Marijuana use Obesity affecting Supervision of high risk , antepartum Back pain affecting Chlamydia infection affecting Former cigarette smoker Gestational diabetes H/O depression, currently H/O pre-eclampsia in prior , currently History of shoulder dystocia in prior , currently Marijuana use Obesity affecting Supervision of high risk , antepartum Back pain affecting Chlamydia infection affecting Former cigarette smoker Gestational diabetes H/O depression, currently H/O pre-eclampsia in prior , currently History of shoulder dystocia in prior , currently Marijuana use Obesity affecting Supervision of high risk , antepartum Back pain affecting Chlamydia infection affecting False labor before 37 completed weeks of gestation in third trimester Former cigarette smoker Gestational diabetes H/O depression, currently H/O pre-eclampsia in prior , currently History of shoulder dystocia in prior , currently Marijuana use Obesity affecting Supervision of high risk , antepartum Back pain affecting Chlamydia infection affecting False labor before 37 completed weeks of gestation in third trimester Former cigarette smoker Gestational diabetes H/O depression, currently H/O pre-eclampsia in prior , currently History of shoulder dystocia in prior , currently Marijuana use Obesity affecting Supervision of high risk , antepartum Back pain affecting Chlamydia infection affecting False labor before 37 completed weeks of gestation in third trimester Former cigarette smoker Gestational diabetes H/O depression, currently H/O pre-eclampsia in prior , currently History of shoulder dystocia in prior , currently Marijuana use Obesity affecting Supervision of high risk , antepartum Back pain affecting Chlamydia infection affecting False labor before 37 completed weeks of gestation in third trimester Former cigarette smoker Gestational diabetes H/O depression, currently H/O pre-eclampsia in prior , currently History of shoulder dystocia in prior , currently Marijuana use Obesity affecting Supervision of high risk , antepartum Back pain affecting Chlamydia infection affecting False labor before 37 completed weeks of gestation in third trimester Former cigarette smoker Gestational diabetes H/O depression, currently H/O pre-eclampsia in prior , currently History of shoulder dystocia in prior , currently Marijuana use Obesity affecting Supervision of high risk , antepartum Chief Complaint 3 M FU 25 WK OB 28 WK OB/GLUCOSE SPECIFIED DISEASE AFFECTING OB - BP, Urine. US at 11 RUQ PAIN 30 WK OB 32 WK OB/NST GESTATIONAL DIABETES IN NST NST NST R/O LABOR R/O LABOR NST NST GESTATIONAL DIABETES IN 36 WK OB/NST NST 37 WK OB/NST Reason for Visit Gestational diabetes Chlamydia infection affecting Former cigarette smoker Gestational diabetes H/O depression, currently H/O pre-eclampsia in prior , currently History of shoulder dystocia in prior , currently Marijuana use Obesity affecting Supervision of high risk , antepartum Chlamydia infection affecting Former cigarette smoker Gestational diabetes H/O depression, currently H/O pre-eclampsia in prior , currently History of shoulder dystocia in prior , currently Marijuana use Obesity affecting Supervision of high risk , antepartum Back pain affecting Gestational diabetes H/O depression, currently H/O pre-eclampsia in prior , currently Marijuana use Supervision of high risk , antepartum Back pain affecting Chlamydia infection affecting Former cigarette smoker Gestational diabetes H/O depression, currently H/O pre-eclampsia in prior , currently History of shoulder dystocia in prior , currently Marijuana use Obesity affecting Supervision of high risk , antepartum Back pain affecting Chlamydia infection affecting Former cigarette smoker Gestational diabetes H/O depression, currently H/O pre-eclampsia in prior , currently History of shoulder dystocia in prior , currently Marijuana use Obesity affecting Supervision of high risk , antepartum Back pain affecting Chlamydia infection affecting Former cigarette smoker Gestational diabetes H/O depression, currently H/O pre-eclampsia in prior , currently History of shoulder dystocia in prior , currently Marijuana use Obesity affecting Supervision of high risk , antepartum Back pain affecting Chlamydia infection affecting Former cigarette smoker Gestational diabetes H/O depression, currently H/O pre-eclampsia in prior , currently History of shoulder dystocia in prior , currently Marijuana use Obesity affecting Supervision of high risk , antepartum Back pain affecting Chlamydia infection affecting Former cigarette smoker Gestational diabetes H/O depression, currently H/O pre-eclampsia in prior , currently History of shoulder dystocia in prior , currently Marijuana use Obesity affecting Supervision of high risk , antepartum Back pain affecting Chlamydia infection affecting False labor before 37 completed weeks of gestation in third trimester Former cigarette smoker Gestational diabetes H/O depression, currently H/O pre-eclampsia in prior , currently History of shoulder dystocia in prior , currently Marijuana use Obesity affecting Supervision of high risk , antepartum Back pain affecting Chlamydia infection affecting False labor before 37 completed weeks of gestation in third trimester Former cigarette smoker Gestational diabetes H/O depression, currently H/O pre-eclampsia in prior , currently History of shoulder dystocia in prior , currently Marijuana use Obesity affecting Supervision of high risk , antepartum Back pain affecting Chlamydia infection affecting False labor before 37 completed weeks of gestation in third trimester Former cigarette smoker Gestational diabetes H/O depression, currently H/O pre-eclampsia in prior , currently History of shoulder dystocia in prior , currently Marijuana use Obesity affecting Supervision of high risk , antepartum Back pain affecting Chlamydia infection affecting False labor before 37 completed weeks of gestation in third trimester Former cigarette smoker Gestational diabetes H/O depression, currently H/O pre-eclampsia in prior , currently History of shoulder dystocia in prior , currently Marijuana use Obesity affecting Supervision of high risk , antepartum Back pain affecting Chlamydia infection affecting False labor before 37 completed weeks of gestation in third trimester Former cigarette smoker Gestational diabetes H/O depression, currently H/O pre-eclampsia in prior , currently History of shoulder dystocia in prior , currently Marijuana use Obesity affecting Supervision of high risk , antepartum Back pain affecting Chlamydia infection affecting False labor before 37 completed weeks of gestation in third trimester Former cigarette smoker Gestational diabetes H/O depression, currently H/O pre-eclampsia in prior , currently History of shoulder dystocia in prior , currently Marijuana use Obesity affecting Supervision of high risk , antepartum Chief Complaint 3 M FU 25 WK OB 28 WK OB/GLUCOSE SPECIFIED DISEASE AFFECTING OB - BP, Urine. US at 11 RUQ PAIN 30 WK OB 32 WK OB/NST GESTATIONAL DIABETES IN NST NST NST R/O LABOR R/O LABOR NST NST GESTATIONAL DIABETES IN 36 WK OB/NST NST 37 WK OB/NST NST GEST DIABETES PRIMARY PRIMARY PRIMARY Reason for Visit Gestational diabetes Gestational diabetes Marijuana use Chlamydia infection affecting Former cigarette smoker H/O depression, currently H/O pre-eclampsia in prior , currently History of shoulder dystocia in prior , currently Obesity affecting Supervision of high risk , antepartum Gestational diabetes Marijuana use Chlamydia infection affecting Former cigarette smoker H/O depression, currently H/O pre-eclampsia in prior , currently History of shoulder dystocia in prior , currently Obesity affecting Supervision of high risk , antepartum Gestational diabetes Marijuana use Back pain affecting H/O depression, currently H/O pre-eclampsia in prior , currently Supervision of high risk , antepartum Gestational diabetes Marijuana use Back pain affecting Chlamydia infection affecting Former cigarette smoker H/O depression, currently H/O pre-eclampsia in prior , currently History of shoulder dystocia in prior , currently Obesity affecting Supervision of high risk , antepartum Gestational diabetes Marijuana use Back pain affecting Chlamydia infection affecting Former cigarette smoker H/O depression, currently H/O pre-eclampsia in prior , currently History of shoulder dystocia in prior , currently Obesity affecting Supervision of high risk , antepartum Gestational diabetes Marijuana use Back pain affecting Chlamydia infection affecting Former cigarette smoker H/O depression, currently H/O pre-eclampsia in prior , currently History of shoulder dystocia in prior , currently Obesity affecting Supervision of high risk , antepartum Gestational diabetes Marijuana use Back pain affecting Chlamydia infection affecting Former cigarette smoker H/O depression, currently H/O pre-eclampsia in prior , currently History of shoulder dystocia in prior , currently Obesity affecting Supervision of high risk , antepartum Gestational diabetes Marijuana use Back pain affecting Chlamydia infection affecting Former cigarette smoker H/O depression, currently H/O pre-eclampsia in prior , currently History of shoulder dystocia in prior , currently Obesity affecting Supervision of high risk , antepartum Gestational diabetes Marijuana use Back pain affecting Chlamydia infection affecting False labor before 37 completed weeks of gestation in third trimester Former cigarette smoker H/O depression, currently H/O pre-eclampsia in prior , currently History of shoulder dystocia in prior , currently Obesity affecting Supervision of high risk , antepartum Gestational diabetes Marijuana use Back pain affecting Chlamydia infection affecting False labor before 37 completed weeks of gestation in third trimester Former cigarette smoker H/O depression, currently H/O pre-eclampsia in prior , currently History of shoulder dystocia in prior , currently Obesity affecting Supervision of high risk , antepartum Gestational diabetes Marijuana use Back pain affecting Chlamydia infection affecting False labor before 37 completed weeks of gestation in third trimester Former cigarette smoker H/O depression, currently H/O pre-eclampsia in prior , currently History of shoulder dystocia in prior , currently Obesity affecting Supervision of high risk , antepartum Gestational diabetes Marijuana use Back pain affecting Chlamydia infection affecting False labor before 37 completed weeks of gestation in third trimester Former cigarette smoker H/O depression, currently H/O pre-eclampsia in prior , currently History of shoulder dystocia in prior , currently Obesity affecting Supervision of high risk , antepartum Gestational diabetes Marijuana use Back pain affecting Chlamydia infection affecting False labor before 37 completed weeks of gestation in third trimester Former cigarette smoker H/O depression, currently H/O pre-eclampsia in prior , currently History of shoulder dystocia in prior , currently Obesity affecting Supervision of high risk , antepartum Gestational diabetes Marijuana use Back pain affecting Chlamydia infection affecting False labor before 37 completed weeks of gestation in third trimester Former cigarette smoker H/O depression, currently H/O pre-eclampsia in prior , currently History of shoulder dystocia in prior , currently Obesity affecting Supervision of high risk , antepartum Gestational diabetes Marijuana use Back pain affecting Chlamydia infection affecting False labor before 37 completed weeks of gestation in third trimester Former cigarette smoker H/O depression, currently H/O pre-eclampsia in prior , currently History of shoulder dystocia in prior , currently Obesity affecting Supervision of high risk , antepartum delivery delivered Gestational diabetes Marijuana use Chlamydia infection affecting Former cigarette smoker H/O depression, currently H/O pre-eclampsia in prior , currently History of shoulder dystocia in prior , currently Obesity affecting Supervision of high risk , antepartum Chief Complaint Admit Date 12wk OB August 01, 2024 1 1:34am 16 WK OB August 27, 2024 3:25pm 20WK OB October 02, 2024 2:52 pm 26 WK OB October 31, 2024 2:01pm 28 wk ob/glucose November 11, 2024 2:55p m Reason for Visit Admit Date Adopted August 01, 2024 1 1:34am Allergy to adhesive tape August 01 025 11:34am Anxiety August 01, 2024 1 1:34am History of miscarriage, currently pregna nt August 01, 2024 11:34am History of pre-eclampsia in prior , currently August 01, 2024 11:34am Hx of gestational diabetes i n prior , currently August 01, 2024 11:34am Marijuana use August 01, 2024 1 1:34am Mild depression August 01, 2024 1 1:34am Obesity affecting July 11:[facility] August 01, 2024 1 1:34am Previous section August 01, 2024 11:34am [facility] 11:34[facility] Left shoulder strain August 01, 2024 11:34am Right shoulder strain August 01, 2024 11:34am Adopted August 27, 2024 3:25pm Allergy to adhesive tape August 27, 2024 3:25pm Anxiety August 27, 2024 3:25pm History of miscarriage, currently pregna nt August 27, 2024 3:25pm History of pre-eclampsia in prior , currently August 27, 2024 3:25pm Hx of gestational diabetes i n prior , currently August 27, 2024 3:25pm Marijuana use August 27, 2024 3:25pm Mild depression August 27, 2024 3:25pm Obesity affecting August 3:25pm [facility] 3:[facility] August 27, 2024 3:25pm Previous section August 27, 2024 3:25pm Supervision of high-risk [facility] d[facility] 2024 3:25pm Left shoulder strain August 27, 2024 3:25pm Right shoulder strain August 27 3:25pm Adopted October 02, 2024 2:52 pm Allergy to adhesive tape October 02, 2024 2:52pm Anxiety October 02, 2024 2:52 pm Circumvallate placenta October 02, 2024 2 :52pm History of miscarriage, currently pregna nt October 02, 2024 2:52pm History of pre-eclampsia in prior , currently October 02, 2024 2:52pm Hx of gestational diabetes i n prior , currently October 02, 2024 2:52pm Marijuana use October 02, 2024 2:52 pm Mild depression October 02, 2024 2:52 pm Obesity affecting October 02, 2:52pm Pelvic floor dysfunction in female October 02, 2024 2:52pm October 02, 2024 2:52 pm Previous section October 02 2:52pm Supervision of high-risk October 02, 2024 2:52pm Adopted October 31, 2024 2:01pm Allergy to adhesive tape October 31, 2024 2 :01pm Anxiety October 31, 2024 2:01pm Circumvallate placenta October 31, 2024 2:0 1pm History of miscarriage, currently pregna nt October 31, 2024 2:01pm History of pre-eclampsia in prior , currently October 31, 2024 2:01pm Hx of gestational diabetes i n prior , currently October 31, 2024 2:01pm Marijuana use October 31, 2024 2:01pm Mild depression October 31, 2024 2:01pm Obesity affecting October 31 2:01pm Pelvic floor dysfunction in female October [id number] 2:01pm October 31, 2024 2:01pm Previous section October 31, 2024 2:01pm Supervision of high-risk October [id number] 2:01pm Adopted November 11, 2024 2:55p m Allergy to adhesive tape November 11, 2024 2:55pm Anxiety November 11, 2024 2:55p m Circumvallate placenta November 11, 2024 2: 55pm History of miscarriage, currently pregna nt November 11, 2024 2:55pm History of pre-eclampsia in prior , currently November 11, 2024 2:55pm Hx of gestational diabetes i n prior , currently November 11, 2024 2:55pm Marijuana use November 11, 2024 2:55p m Mild depression November 11, 2024 2:55p m Obesity affecting November 11 2:55pm Pelvic floor dysfunction in female October [id number] 2:55pm November 11, 2024 2:55p m Previous section November 11, 2024 2:55pm Supervision of high-risk October [id number] 2:55pm Chief Complaint Admit Date 16 WK OB August 27, 2024 3:25pm 20WK OB October 02, 2024 2:52 pm 26 WK OB October 31, 2024 2:01pm 28 wk ob/glucose November 11, 2024 2:55p m 32 WK OB December 11, 2024 3:47 pm Reason for Visit Admit Date Adopted August 27, 2024 3:25pm Allergy to adhesive tape August 27, 2024 3:25pm Anxiety August 27, 2024 3:25pm History of miscarriage, currently pregna nt August 27, 2024 3:25pm History of pre-eclampsia in prior , currently August 27, 2024 3:25pm Hx of gestational diabetes i n prior , currently August 27, 2024 3:25pm Marijuana use August 27, 2024 3:25pm Mild depression August 27, 2024 3:25pm Obesity affecting August 3:25pm Pelvic floor dysfunction in female Feb[facility] [email or web address] 3:25pm August 27, 2024 3:25pm Previous section August 27, 2024 3:25pm Supervision of high-risk Febru [email or web address] 3:25pm Left shoulder strain August 27, 2024 3:25pm Right shoulder strain August 27 3:25pm Adopted October 02, 2024 2:52 pm Allergy to adhesive tape October 02, 2024 2:52pm Anxiety October 02, 2024 2:52 pm Circumvallate placenta October 02, 2024 2 :52pm History of miscarriage, currently pregna nt October 02, 2024 2:52pm History of pre-eclampsia in prior , currently October 02, 2024 2:52pm Hx of gestational diabetes i n prior , currently October 02, 2024 2:52pm Marijuana use October 02, 2024 2:52 pm Mild depression October 02, 2024 2:52 pm Obesity affecting October 02, 2:52pm Pelvic floor dysfunction in female October 02, 2024 2:52pm October 02, 2024 2:52 pm Previous section October 02 2:52pm Supervision of high-risk October 02, 2024 2:52pm Adopted October 31, 2024 2:01pm Allergy to adhesive tape October 31, 2024 2 :01pm Anxiety October 31, 2024 2:01pm Circumvallate placenta October 31, 2024 2:0 1pm History of miscarriage, currently pregna nt October 31, 2024 2:01pm History of pre-eclampsia in prior , currently October 31, 2024 2:01pm Hx of gestational diabetes i n prior , currently October 31, 2024 2:01pm Marijuana use October 31, 2024 2:01pm Mild depression October 31, 2024 2:01pm Obesity affecting October 31 2:01pm Pelvic floor dysfunction in female October [id number] 2:01pm October 31, 2024 2:01pm Previous section October 31, 2024 2:01pm Supervision of high-risk October [id number] 2:01pm Adopted November 11, 2024 2:55p m Allergy to adhesive tape November 11, 2024 2:55pm Anxiety November 11, 2024 2:55p m Circumvallate placenta November 11, 2024 2: 55pm History of miscarriage, currently pregna nt November 11, 2024 2:55pm History of pre-eclampsia in prior , currently November 11, 2024 2:55pm Hx of gestational diabetes i n prior , currently November 11, 2024 2:55pm Marijuana use November 11, 2024 2:55p m Mild depression November 11, 2024 2:55p m Obesity affecting November 11 2:55pm Pelvic floor dysfunction in female October [id number] 2:55pm November 11, 2024 2:55p m Previous section November 11, 2024 2:55pm Supervision of high-risk October [id number] 2:55pm Adopted December 11, 2024 3:47 pm Allergy to adhesive tape December 11, 2024 3:47pm Anxiety December 11, 2024 3:47 pm Circumvallate placenta December 11, 2024 3 :47pm Gestational diabetes mellitu s (GDM) affecting , antepartum December 11, 2024 3:47pm History of miscarriage, currently pregna nt December 11, 2024 3:47pm History of pre-eclampsia in prior , currently December 11, 2024 3:47pm Hx of gestational diabetes i n prior , currently December 11, 2024 3:47pm Marijuana use December 11, 2024 3:47 pm Mild depression December 11, 2024 3:47 pm Obesity affecting December 11, 025 3:47pm Pelvic floor dysfunction in female December 11, 2024 3:47pm December 11, 2024 3:47 pm Previous section December 11 3:47pm Supervision of high-risk December 11, 2024 3:47pm Chief Complaint Admit Date 16 WK OB August 27, 2024 3:25pm 20WK OB October 02, 2024 2:52 pm 26 WK OB October 31, 2024 2:01pm 28 wk ob/glucose November 11, 2024 2:55p m 32 WK OB December 11, 2024 3:47 pm Gestational Diabetes December 16, 2024 10: 37am Chief Complaint Admit Date 16 WK OB August 27, 2024 3:25pm 20WK OB October 02, 2024 2:52 pm 26 WK OB October 31, 2024 2:01pm 28 wk ob/glucose November 11, 2024 2:55p m 32 WK OB December 11, 2024 3:47 pm Gestational Diabetes December 16, 2024 10: 37am 31 WEEK GROWTH December 17, 2024 3:34 pm Reason for Visit Admit Date Adopted August 27, 2024 3:25pm Allergy to adhesive tape August 27, 2024 3:25pm Anxiety August 27, 2024 3:25pm History of miscarriage, currently pregna nt August 27, 2024 3:25pm History of pre-eclampsia in prior , currently August 27, 2024 3:25pm Hx of gestational diabetes i n prior , currently August 27, 2024 3:25pm Marijuana use August 27, 2024 3:25pm Mild depression August 27, 2024 3:25pm Obesity affecting August 3:25pm Pelvic floor dysfunction in female Feb[facility] [email or web address] 3:25pm August 27, 2024 3:25pm Previous section August 27, 2024 3:25pm Supervision of high-risk Febru [email or web address] 3:25pm Left shoulder strain August 27, 2024 3:25pm Right shoulder strain August 27 3:25pm Adopted October 02, 2024 2:52 pm Allergy to adhesive tape October 02, 2024 2:52pm Anxiety October 02, 2024 2:52 pm Circumvallate placenta October 02, 2024 2 :52pm History of miscarriage, currently pregna nt October 02, 2024 2:52pm History of pre-eclampsia in prior , currently October 02, 2024 2:52pm Hx of gestational diabetes i n prior , currently October 02, 2024 2:52pm Marijuana use October 02, 2024 2:52 pm Mild depression October 02, 2024 2:52 pm Obesity affecting October 02, 2 025 2:52pm Pelvic floor dysfunction in female October 02, 2024 2:52pm October 02, 2024 2:52 pm Previous section October 02 2:52pm Supervision of high-risk October 02, 2024 2:52pm Adopted October 31, 2024 2:01pm Allergy to adhesive tape October 31, 2024 2 :01pm Anxiety October 31, 2024 2:01pm Circumvallate placenta October 31, 2024 2:0 1pm History of miscarriage, currently pregna nt October 31, 2024 2:01pm History of pre-eclampsia in prior , currently October 31, 2024 2:01pm Hx of gestational diabetes i n prior , currently October 31, 2024 2:01pm Marijuana use October 31, 2024 2:01pm Mild depression October 31, 2024 2:01pm Obesity affecting October 31 2:01pm Pelvic floor dysfunction in female October 312024 2:01pm October 31, 2024 2:01pm Previous section October 31, 2024 2:01pm Supervision of high-risk October 312024 2:01pm Adopted November 11, 2024 2:55p m Allergy to adhesive tape November 11, 2024 2:55pm Anxiety November 11, 2024 2:55p m Circumvallate placenta November 11, 2024 2: 55pm History of miscarriage, currently pregna nt November 11, 2024 2:55pm History of pre-eclampsia in prior , currently November 11, 2024 2:55pm Hx of gestational diabetes i n prior , currently November 11, 2024 2:55pm Marijuana use November 11, 2024 2:55p m Mild depression November 11, 2024 2:55p m Obesity affecting November 11 2:55pm Pelvic floor dysfunction in female October 302024 2:55pm November 11, 2024 2:55p m Previous section November 11, 2024 2:55pm Supervision of high-risk October 302024 2:55pm Adopted December 11, 2024 3:47 pm Allergy to adhesive tape December 11, 2024 3:47pm Anxiety December 11, 2024 3:47 pm Circumvallate placenta December 11, 2024 3 :47pm Gestational diabetes mellitu s (GDM) affecting , antepartum December 11, 2024 3:47pm History of miscarriage, currently pregna nt December 11, 2024 3:47pm History of pre-eclampsia in prior , currently December 11, 2024 3:47pm Hx of gestational diabetes i n prior , currently December 11, 2024 3:47pm Marijuana use December 11, 2024 3:47 pm Mild depression December 11, 2024 3:47 pm Obesity affecting December 11, 2 025 3:47pm Pelvic floor dysfunction in female December 11, 2024 3:47pm December 11, 2024 3:47 pm Previous section December 11 3:47pm Supervision of high-risk December 11, 2024 3:47pm Gestational diabetes mellitu s (GDM) affecting , antepartum December 16, 2024 10:37am Chief Complaint Admit Date 20WK OB October 02, 2024 2:52 pm 26 WK OB October 31, 2024 2:01pm 28 wk ob/glucose November 11, 2024 2:55p m 32 WK OB December 11, 2024 3:47 pm Gestational Diabetes December 16, 2024 10: 37am 31 WEEK GROWTH December 17, 2024 3:34 pm 34 WK OB December 26, 2024 2:34 pm Reason for Visit Admit Date Adopted October 02, 2024 2:52 pm Allergy to adhesive tape October 02, 2024 2:52pm Anxiety October 02, 2024 2:52 pm Circumvallate placenta October 02, 2024 2 :52pm History of miscarriage, currently pregna nt October 02, 2024 2:52pm History of pre-eclampsia in prior , currently October 02, 2024 2:52pm Hx of gestational diabetes i n prior , currently October 02, 2024 2:52pm Marijuana use October 02, 2024 2:52 pm Mild depression October 02, 2024 2:52 pm Obesity affecting October 02, 2:52pm Pelvic floor dysfunction in female October 02, 2024 2:52pm October 02, 2024 2:52 pm Previous section October 02 2:52pm Supervision of high-risk October 02, 2024 2:52pm Adopted October 31, 2024 2:01pm Allergy to adhesive tape October 31, 2024 2 :01pm Anxiety October 31, 2024 2:01pm Circumvallate placenta October 31, 2024 2:0 1pm History of miscarriage, currently pregna nt October 31, 2024 2:01pm History of pre-eclampsia in prior , currently October 31, 2024 2:01pm Hx of gestational diabetes i n prior , currently October 31, 2024 2:01pm Marijuana use October 31, 2024 2:01pm Mild depression October 31, 2024 2:01pm Obesity affecting October 31 2:01pm Pelvic floor dysfunction in female October 312024 2:01pm October 31, 2024 2:01pm Previous section October 31, 2024 2:01pm Supervision of high-risk October 312024 2:01pm Adopted November 11, 2024 2:55p m Allergy to adhesive tape November 11, 2024 2:55pm Anxiety November 11, 2024 2:55p m Circumvallate placenta November 11, 2024 2: 55pm History of miscarriage, currently pregna nt November 11, 2024 2:55pm History of pre-eclampsia in prior , currently November 11, 2024 2:55pm Hx of gestational diabetes i n prior , currently November 11, 2024 2:55pm Marijuana use November 11, 2024 2:55p m Mild depression November 11, 2024 2:55p m Obesity affecting November 11 2:55pm Pelvic floor dysfunction in female October 302024 2:55pm November 11, 2024 2:55p m Previous section November 11, 2024 2:55pm Supervision of high-risk October 302024 2:55pm Adopted December 11, 2024 3:47 pm Allergy to adhesive tape December 11, 2024 3:47pm Anxiety December 11, 2024 3:47 pm Circumvallate placenta December 11, 2024 3 :47pm Gestational diabetes mellitu s (GDM) affecting , antepartum December 11, 2024 3:47pm History of miscarriage, currently pregna nt December 11, 2024 3:47pm History of pre-eclampsia in prior , currently December 11, 2024 3:47pm Hx of gestational diabetes i n prior , currently December 11, 2024 3:47pm Marijuana use December 11, 2024 3:47 pm Mild depression December 11, 2024 3:47 pm Obesity affecting December 11, 025 3:47pm Pelvic floor dysfunction in female December 11, 2024 3:47pm December 11, 2024 3:47 pm Previous section December 11 3:47pm Supervision of high-risk December 11, 2024 3:47pm Gestational diabetes mellitu s (GDM) affecting , antepartum December 16, 2024 10:37am Adopted December 26, 2024 2:34 pm Allergy to adhesive tape December 26, 2024 2:34pm Anxiety December 26, 2024 2:34 pm Circumvallate placenta December 26, 2024 2 :34pm Gestational diabetes mellitu s (GDM) affecting , antepartum December 26, 2024 2:34pm History of miscarriage, currently pregna nt December 26, 2024 2:34pm History of pre-eclampsia in prior , currently December 26, 2024 2:34pm Hx of gestational diabetes i n prior , currently December 26, 2024 2:34pm Marijuana use December 26, 2024 2:34 pm Mild depression December 26, 2024 2:34 pm Obesity affecting December 26, 2 025 2:34pm Pelvic floor dysfunction in female December 26, 2024 2:34pm December 26, 2024 2:34 pm Previous section December 26 2:34pm Supervision of high-risk December 26, 2024 2:34pm Chief Complaint Admit Date 20WK OB October 02, 2024 2:52 pm 26 WK OB October 31, 2024 2:01pm 28 wk ob/glucose November 11, 2024 2:55p m 32 WK OB December 11, 2024 3:47 pm Gestational Diabetes December 16, 2024 10: 37am 31 WEEK GROWTH December 17, 2024 3:34 pm 34 WK OB December 26, 2024 2:34 pm 35 WEEK GROWTH January 01, 2025 1:35p m 36 WEEK WELL BEING January 08, 2025 12:36pm 36wk ob January 08, 2025 1:46 pm Reason for Visit Admit Date Adopted October 02, 2024 2:52 pm Allergy to adhesive tape October 02, 2024 2:52pm Anxiety October 02, 2024 2:52 pm Circumvallate placenta October 02, 2024 2 :52pm History of miscarriage, currently pregna nt October 02, 2024 2:52pm History of pre-eclampsia in prior , currently October 02, 2024 2:52pm Hx of gestational diabetes i n prior , currently October 02, 2024 2:52pm Marijuana use October 02, 2024 2:52 pm Mild depression October 02, 2024 2:52 pm Obesity affecting October 02, 2 025 2:52pm Pelvic floor dysfunction in female October 02, 2024 2:52pm October 02, 2024 2:52 pm Previous section October 02 2:52pm Supervision of high-risk October 02, 2024 2:52pm Adopted October 31, 2024 2:01pm Allergy to adhesive tape October 31, 2024 2 :01pm Anxiety October 31, 2024 2:01pm Circumvallate placenta October 31, 2024 2:0 1pm History of miscarriage, currently pregna nt October 31, 2024 2:01pm History of pre-eclampsia in prior , currently October 31, 2024 2:01pm Hx of gestational diabetes i n prior , currently October 31, 2024 2:01pm Marijuana use October 31, 2024 2:01pm Mild depression October 31, 2024 2:01pm Obesity affecting October 31 2:01pm Pelvic floor dysfunction in female October 312024 2:01pm October 31, 2024 2:01pm Previous section October 31, 2024 2:01pm Supervision of high-risk October 312024 2:01pm Adopted November 11, 2024 2:55p m Allergy to adhesive tape November 11, 2024 2:55pm Anxiety November 11, 2024 2:55p m Circumvallate placenta November 11, 2024 2: 55pm History of miscarriage, currently pregna nt November 11, 2024 2:55pm History of pre-eclampsia in prior , currently November 11, 2024 2:55pm Hx of gestational diabetes i n prior , currently November 11, 2024 2:55pm Marijuana use November 11, 2024 2:55p m Mild depression November 11, 2024 2:55p m Obesity affecting November 11 2:55pm Pelvic floor dysfunction in female October 302024 2:55pm November 11, 2024 2:55p m Previous section November 11, 2024 2:55pm Supervision of high-risk October 302024 2:55pm Adopted December 11, 2024 3:47 pm Allergy to adhesive tape December 11, 2024 3:47pm Anxiety December 11, 2024 3:47 pm Circumvallate placenta December 11, 2024 3 :47pm Gestational diabetes mellitu s (GDM) affecting , antepartum December 11, 2024 3:47pm History of miscarriage, currently pregna nt December 11, 2024 3:47pm History of pre-eclampsia in prior , currently December 11, 2024 3:47pm Hx of gestational diabetes i n prior , currently December 11, 2024 3:47pm Marijuana use December 11, 2024 3:47 pm Mild depression December 11, 2024 3:47 pm Obesity affecting December 11, 2 025 3:47pm Pelvic floor dysfunction in female December 11, 2024 3:47pm December 11, 2024 3:47 pm Previous section December 11 3:47pm Supervision of high-risk December 11, 2024 3:47pm Gestational diabetes mellitu s (GDM) affecting , antepartum December 16, 2024 10:37am Adopted December 26, 2024 2:34 pm Allergy to adhesive tape December 26, 2024 2:34pm Anxiety December 26, 2024 2:34 pm Circumvallate placenta December 26, 2024 2 :34pm Gestational diabetes mellitu s (GDM) affecting , antepartum December 26, 2024 2:34pm History of miscarriage, currently pregna nt December 26, 2024 2:34pm History of pre-eclampsia in prior , currently December 26, 2024 2:34pm Hx of gestational diabetes i n prior , currently December 26, 2024 2:34pm Marijuana use December 26, 2024 2:34 pm Mild depression December 26, 2024 2:34 pm Obesity affecting December 26 025 2:34pm Pelvic floor dysfunction in female December 26, 2024 2:34pm December 26, 2024 2:34 pm Previous section December 26 2:34pm Supervision of high-risk December 26, 2024 2:34pm Adopted January 08, 2025 1:46 pm Allergy to adhesive tape January 08, 2025 1:46pm Anxiety January 08, 2025 1:46 pm Circumvallate placenta January 08, 2025 1 :46pm Gestational diabetes mellitu s (GDM) affecting , antepartum January 08, 2025 1:46pm Headache in January 08, 2025 1: 46pm History of miscarriage, currently pregna nt January 08, 2025 1:46pm History of pre-eclampsia in prior , currently January 08, 2025 1:46pm Hx of gestational diabetes i n prior , currently January 08, 2025 1:46pm Marijuana use January 08, 2025 1:46 pm Mild depression January 08, 2025 1:46 pm Obesity affecting January 08, 025 1:46pm Pelvic floor dysfunction in female January 08, 2025 1:46pm January 08, 2025 1:46 pm Previous section January 08 1:46pm Supervision of high-risk January 08, 2025 1:46pm Chief Complaint Admit Date 20WK OB October 02, 2024 2:52 pm 26 WK OB October 31, 2024 2:01pm 28 wk ob/glucose November 11, 2024 2:55p m 32 WK OB December 11, 2024 3:47 pm Gestational Diabetes December 16, 2024 10: 37am 31 WEEK GROWTH December 17, 2024 3:34 pm 34 WK OB December 26, 2024 2:34 pm 35 WEEK GROWTH January 01, 2025 1:35p m R/O PRE-ECLAMPSIA January 08, 2025 12:3 6pm 36wk ob January 08, 2025 1:46 pm Chief Complaint Admit Date 20WK OB October 02, 2024 2:52 pm 26 WK OB October 31, 2024 2:01pm 28 wk ob/glucose November 11, 2024 2:55p m 32 WK OB December 11, 2024 3:47 pm Gestational Diabetes December 16, 2024 10: 37am 31 WEEK GROWTH December 17, 2024 3:34 pm 34 WK OB December 26, 2024 2:34 pm 35 WEEK GROWTH January 01, 2025 1:35p m R/O PRE-ECLAMPSIA January 08, 2025 12:3 6pm 36wk ob January 08, 2025 1:46 pm R/O PRE-ECLAMPSIA January 08, 2025 7:15 pm Reason for Visit Admit Date Adopted October 02, 2024 2:52 pm Allergy to adhesive tape October 02, 2024 2:52pm Anxiety October 02, 2024 2:52 pm Circumvallate placenta October 02, 2024 2 :52pm History of miscarriage, currently pregna nt October 02, 2024 2:52pm History of pre-eclampsia in prior , currently October 02, 2024 2:52pm Hx of gestational diabetes i n prior , currently October 02, 2024 2:52pm Marijuana use October 02, 2024 2:52 pm Mild depression October 02, 2024 2:52 pm Obesity affecting October 02, 2 025 2:52pm Pelvic floor dysfunction in female October 02, 2024 2:52pm October 02, 2024 2:52 pm Previous section October 02 2:52pm Supervision of high-risk October 02, 2024 2:52pm Adopted October 31, 2024 2:01pm Allergy to adhesive tape October 31, 2024 2 :01pm Anxiety October 31, 2024 2:01pm Circumvallate placenta October 31, 2024 2:0 1pm History of miscarriage, currently pregna nt October 31, 2024 2:01pm History of pre-eclampsia in prior , currently October 31, 2024 2:01pm Hx of gestational diabetes i n prior , currently October 31, 2024 2:01pm Marijuana use October 31, 2024 2:01pm Mild depression October 31, 2024 2:01pm Obesity affecting October 31 2:01pm Pelvic floor dysfunction in female October 312024 2:01pm October 31, 2024 2:01pm Previous section October 31, 2024 2:01pm Supervision of high-risk October 312024 2:01pm Adopted November 11, 2024 2:55p m Allergy to adhesive tape November 11, 2024 2:55pm Anxiety November 11, 2024 2:55p m Circumvallate placenta November 11, 2024 2: 55pm History of miscarriage, currently pregna nt November 11, 2024 2:55pm History of pre-eclampsia in prior , currently November 11, 2024 2:55pm Hx of gestational diabetes i n prior , currently November 11, 2024 2:55pm Marijuana use November 11, 2024 2:55p m Mild depression November 11, 2024 2:55p m Obesity affecting November 11 2:55pm Pelvic floor dysfunction in female October 302024 2:55pm November 11, 2024 2:55p m Previous section November 11, 2024 2:55pm Supervision of high-risk October 302024 2:55pm Adopted December 11, 2024 3:47 pm Allergy to adhesive tape December 11, 2024 3:47pm Anxiety December 11, 2024 3:47 pm Circumvallate placenta December 11, 2024 3 :47pm Gestational diabetes mellitu s (GDM) affecting , antepartum December 11, 2024 3:47pm History of miscarriage, currently pregna nt December 11, 2024 3:47pm History of pre-eclampsia in prior , currently December 11, 2024 3:47pm Hx of gestational diabetes i n prior , currently December 11, 2024 3:47pm Marijuana use December 11, 2024 3:47 pm Mild depression December 11, 2024 3:47 pm Obesity affecting December 11, 2 025 3:47pm Pelvic floor dysfunction in female December 11, 2024 3:47pm December 11, 2024 3:47 pm Previous section December 11 3:47pm Supervision of high-risk December 11, 2024 3:47pm Gestational diabetes mellitu s (GDM) affecting , antepartum December 16, 2024 10:37am Adopted December 26, 2024 2:34 pm Allergy to adhesive tape December 26, 2024 2:34pm Anxiety December 26, 2024 2:34 pm Circumvallate placenta December 26, 2024 2 :34pm Gestational diabetes mellitu s (GDM) affecting , antepartum December 26, 2024 2:34pm History of miscarriage, currently pregna nt December 26, 2024 2:34pm History of pre-eclampsia in prior , currently December 26, 2024 2:34pm Hx of gestational diabetes i n prior , currently December 26, 2024 2:34pm Marijuana use December 26, 2024 2:34 pm Mild depression December 26, 2024 2:34 pm Obesity affecting December 26, 2 025 2:34pm Pelvic floor dysfunction in female December 26, 2024 2:34pm December 26, 2024 2:34 pm Previous section December 26 2:34pm Supervision of high-risk December 26, 2024 2:34pm Adopted January 08, 2025 12:3 6pm Anxiety January 08, 2025 12:3 6pm Circumvallate placenta January 08, 2025 1 2:36pm Gestational diabetes mellitu s (GDM) affecting , antepartum January 08, 2025 12:36pm Headache in January 08, 2025 12 :36pm History of miscarriage, currently pregna nt January 08, 2025 12:36pm History of pre-eclampsia in prior , currently January 08, 2025 12:36pm Hx of gestational diabetes i n prior , currently January 08, 2025 12:36pm Marijuana use January 08, 2025 12:3 6pm Mild depression January 08, 2025 12:3 6pm Obesity affecting January 08, 2 025 12:36pm January 08, 2025 12:3 6pm Previous section January 08 12:36pm Supervision of high-risk January 08, 2025 12:36pm Adopted January 08, 2025 1:46 pm Allergy to adhesive tape January 08, 2025 1:46pm Anxiety January 08, 2025 1:46 pm Circumvallate placenta January 08, 2025 1 :46pm Gestational diabetes mellitu s (GDM) affecting , antepartum January 08, 2025 1:46pm Headache in January 08, 2025 1: 46pm History of miscarriage, currently pregna nt January 08, 2025 1:46pm History of pre-eclampsia in prior , currently January 08, 2025 1:46pm Hx of gestational diabetes i n prior , currently January 08, 2025 1:46pm Marijuana use January 08, 2025 1:46 pm Mild depression January 08, 2025 1:46 pm Obesity affecting January 08 025 1:46pm Pelvic floor dysfunction in female January 08, 2025 1:46pm January 08, 2025 1:46 pm Previous section January 08 1:46pm Supervision of high-risk January 08, 2025 1:46pm Chief Complaint Admit Date 20WK OB October 02, 2024 2:52 pm 26 WK OB October 31, 2024 2:01pm 28 wk ob/glucose November 11, 2024 2:55p m 32 WK OB December 11, 2024 3:47 pm Gestational Diabetes December 16, 2024 10: 37am 31 WEEK GROWTH December 17, 2024 3:34 pm 34 WK OB December 26, 2024 2:34 pm 35 WEEK GROWTH January 01, 2025 1:35p m R/O PRE-ECLAMPSIA January 08, 2025 12:3 6pm 36wk ob January 08, 2025 1:46 pm R/O PRE-ECLAMPSIA January 08, 2025 7:15 pm RULE OUT SPONTANOUS MEMBRANE RUPTURE Dec 6:37pm Chief Complaint Admit Date 20WK OB October 02, 2024 2:52 pm 26 WK OB October 31, 2024 2:01pm 28 wk ob/glucose November 11, 2024 2:55p m 32 WK OB December 11, 2024 3:47 pm Gestational Diabetes December 16, 2024 10: 37am 31 WEEK GROWTH December 17, 2024 3:34 pm 34 WK OB December 26, 2024 2:34 pm 35 WEEK GROWTH January 01, 2025 1:35p m R/O PRE-ECLAMPSIA January 08, 2025 12:3 6pm 36wk ob January 08, 2025 1:46 pm R/O PRE-ECLAMPSIA January 08, 2025 7:15 pm RULE OUT SPONTANOUS MEMBRANE RUPTURE Dec 6:37pm RULE OUT SPONTANOUS MEMBRANE RUPTURE Dec 7:12pm 37wk ob *csection January 16, 2025 4:01 pm Reason for Visit Admit Date Adopted October 02, 2024 2:52 pm Allergy to adhesive tape October 02, 2024 2:52pm Anxiety October 02, 2024 2:52 pm Circumvallate placenta October 02, 2024 2 :52pm History of miscarriage, currently pregna nt October 02, 2024 2:52pm History of pre-eclampsia in prior , currently October 02, 2024 2:52pm Hx of gestational diabetes i n prior , currently October 02, 2024 2:52pm Marijuana use October 02, 2024 2:52 pm Mild depression October 02, 2024 2:52 pm Obesity affecting October 02, 2 025 2:52pm Pelvic floor dysfunction in female October 02, 2024 2:52pm October 02, 2024 2:52 pm Previous section October 02 2:52pm Supervision of high-risk October 02, 2024 2:52pm Adopted October 31, 2024 2:01pm Allergy to adhesive tape October 31, 2024 2 :01pm Anxiety October 31, 2024 2:01pm Circumvallate placenta October 31, 2024 2:0 1pm History of miscarriage, currently pregna nt October 31, 2024 2:01pm History of pre-eclampsia in prior , currently October 31, 2024 2:01pm Hx of gestational diabetes i n prior , currently October 31, 2024 2:01pm Marijuana use October 31, 2024 2:01pm Mild depression October 31, 2024 2:01pm Obesity affecting May 2nd, 202 5 2:01pm Pelvic floor dysfunction in female October 312024 2:01pm October 31, 2024 2:01pm Previous section October 31, 2024 2:01pm Supervision of high-risk October 312024 2:01pm Adopted November 11, 2024 2:55p m Allergy to adhesive tape November 11, 2024 2:55pm Anxiety November 11, 2024 2:55p m Circumvallate placenta November 11, 2024 2: 55pm History of miscarriage, currently pregna nt November 11, 2024 2:55pm History of pre-eclampsia in prior , currently November 11, 2024 2:55pm Hx of gestational diabetes i n prior , currently November 11, 2024 2:55pm Marijuana use November 11, 2024 2:55p m Mild depression November 11, 2024 2:55p m Obesity affecting November 11 2:55pm Pelvic floor dysfunction in female October 302024 2:55pm November 11, 2024 2:55p m Previous section November 11, 2024 2:55pm Supervision of high-risk October 302024 2:55pm Adopted December 11, 2024 3:47 pm Allergy to adhesive tape December 11, 2024 3:47pm Anxiety December 11, 2024 3:47 pm Circumvallate placenta December 11, 2024 3 :47pm Gestational diabetes mellitu s (GDM) affecting , antepartum December 11, 2024 3:47pm History of miscarriage, currently pregna nt December 11, 2024 3:47pm History of pre-eclampsia in prior , currently December 11, 2024 3:47pm Hx of gestational diabetes i n prior , currently December 11, 2024 3:47pm Marijuana use December 11, 2024 3:47 pm Mild depression December 11, 2024 3:47 pm Obesity affecting December 11, 2 025 3:47pm Pelvic floor dysfunction in female December 11, 2024 3:47pm December 11, 2024 3:47 pm Previous section December 11 3:47pm Supervision of high-risk December 11, 2024 3:47pm Gestational diabetes mellitu s (GDM) affecting , antepartum December 16, 2024 10:37am Adopted December 26, 2024 2:34 pm Allergy to adhesive tape December 26, 2024 2:34pm Anxiety December 26, 2024 2:34 pm Circumvallate placenta December 26, 2024 2 :34pm Gestational diabetes mellitu s (GDM) affecting , antepartum December 26, 2024 2:34pm History of miscarriage, currently pregna nt December 26, 2024 2:34pm History of pre-eclampsia in prior , currently December 26, 2024 2:34pm Hx of gestational diabetes i n prior , currently December 26, 2024 2:34pm Marijuana use December 26, 2024 2:34 pm Mild depression December 26, 2024 2:34 pm Obesity affecting December 26 025 2:34pm Pelvic floor dysfunction in female December 26, 2024 2:34pm December 26, 2024 2:34 pm Previous section December 26 2:34pm Supervision of high-risk December 26, 2024 2:34pm Adopted January 08, 2025 12:3 6pm Anxiety January 08, 2025 12:3 6pm Circumvallate placenta January 08, 2025 1 2:36pm Gestational diabetes mellitu s (GDM) affecting , antepartum January 08, 2025 12:36pm History of miscarriage, currently pregna nt January 08, 2025 12:36pm History of pre-eclampsia in prior , currently January 08, 2025 12:36pm Hx of gestational diabetes i n prior , currently January 08, 2025 12:36pm Marijuana use January 08, 2025 12:3 6pm Mild depression January 08, 2025 12:3 6pm Obesity affecting January 08 025 12:36pm January 08, 2025 12:3 6pm Previous section January 08 12:36pm Supervision of high-risk January 08, 2025 12:36pm Headache in January 08, 2025 12 :36pm Adopted January 08, 2025 1:46 pm Allergy to adhesive tape January 08, 2025 1:46pm Anxiety January 08, 2025 1:46 pm Circumvallate placenta January 08, 2025 1 :46pm Gestational diabetes mellitu s (GDM) affecting , antepartum January 08, 2025 1:46pm History of miscarriage, currently pregna nt January 08, 2025 1:46pm History of pre-eclampsia in prior , currently January 08, 2025 1:46pm Hx of gestational diabetes i n prior , currently January 08, 2025 1:46pm Marijuana use January 08, 2025 1:46 pm Mild depression January 08, 2025 1:46 pm Obesity affecting January 08 025 1:46pm Pelvic floor dysfunction in female January 08, 2025 1:46pm January 08, 2025 1:46 pm Previous section January 08 1:46pm Supervision of high-risk January 08, 2025 1:46pm Headache in January 08, 2025 1: 46pm Adopted January 13, 2025 6:37 pm Allergy to adhesive tape January 13, 2025 6:37pm Anxiety January 13, 2025 6:37 pm Circumvallate placenta January 13, 2025 6 :37pm Gestational diabetes mellitu s (GDM) affecting , antepartum January 13, 2025 6:37pm History of miscarriage, currently pregna nt January 13, 2025 6:37pm History of pre-eclampsia in prior , currently January 13, 2025 6:37pm Hx of gestational diabetes i n prior , currently January 13, 2025 6:37pm Marijuana use January 13, 2025 6:37 pm Mild depression January 13, 2025 6:37 pm Obesity affecting January 13 025 6:37pm Pelvic floor dysfunction in female January 13, 2025 6:37pm January 13, 2025 6:37 pm Previous section January 13 6:37pm Supervision of high-risk January 13, 2025 6:37pm Headache in January 13, 2025 6: 37pm Adopted January 16, 2025 4:01 pm Allergy to adhesive tape January 16, 2025 4:01pm Anxiety January 16, 2025 4:01 pm Circumvallate placenta January 16, 2025 4 :01pm Gestational diabetes mellitu s (GDM) affecting , antepartum January 16, 2025 4:01pm History of miscarriage, currently pregna nt January 16, 2025 4:01pm History of pre-eclampsia in prior , currently January 16, 2025 4:01pm Hx of gestational diabetes i n prior , currently January 16, 2025 4:01pm Marijuana use January 16, 2025 4:01 pm Mild depression January 16, 2025 4:01 pm Obesity affecting January 16, 025 4:01pm Pelvic floor dysfunction in female January 16, 2025 4:01pm January 16, 2025 4:01 pm Previous section January 16 4:01pm Supervision of high-risk January 16, 2025 4:01pm Chief Complaint Admit Date 20WK OB October 02, 2024 2:52 pm 26 WK OB October 31, 2024 2:01pm 28 wk ob/glucose November 11, 2024 2:55p m 32 WK OB December 11, 2024 3:47 pm Gestational Diabetes December 16, 2024 10: 37am 31 WEEK GROWTH December 17, 2024 3:34 pm 34 WK OB December 26, 2024 2:34 pm 35 WEEK GROWTH January 01, 2025 1:35p m R/O PRE-ECLAMPSIA January 08, 2025 12:3 6pm 36wk ob January 08, 2025 1:46 pm R/O PRE-ECLAMPSIA January 08, 2025 7:15 pm RULE OUT SPONTANOUS MEMBRANE RUPTURE Dec 6:37pm RULE OUT SPONTANOUS MEMBRANE RUPTURE Dec 7:12pm 37wk ob *csection January 16, 2025 4:01 pm 37 WEEK WELL BEING January 16, 2025 4:35pm 38 WEEK WELL BEING January 22, 2025 1:33pm 38wk ob *csection January 22, 2025 2:43 pm Reason for Visit Admit Date Adopted October 02, 2024 2:52 pm Allergy to adhesive tape October 02, 2024 2:52pm Anxiety October 02, 2024 2:52 pm Circumvallate placenta October 02, 2024 2 :52pm History of miscarriage, currently pregna nt October 02, 2024 2:52pm History of pre-eclampsia in prior , currently October 02, 2024 2:52pm Hx of gestational diabetes i n prior , currently October 02, 2024 2:52pm Marijuana use October 02, 2024 2:52 pm Mild depression October 02, 2024 2:52 pm Obesity affecting October 02, 2 025 2:52pm Pelvic floor dysfunction in female October 02, 2024 2:52pm October 02, 2024 2:52 pm Previous section October 02 2:52pm Supervision of high-risk October 02, 2024 2:52pm Adopted October 31, 2024 2:01pm Allergy to adhesive tape October 31, 2024 2 :01pm Anxiety October 31, 2024 2:01pm Circumvallate placenta October 31, 2024 2:0 1pm History of miscarriage, currently pregna nt October 31, 2024 2:01pm History of pre-eclampsia in prior , currently October 31, 2024 2:01pm Hx of gestational diabetes i n prior , currently October 31, 2024 2:01pm Marijuana use October 31, 2024 2:01pm Mild depression October 31, 2024 2:01pm Obesity affecting October 31 2:01pm Pelvic floor dysfunction in female October [id number] 2:01pm October 31, 2024 2:01pm Previous section October 31, 2024 2:01pm Supervision of high-risk October [id number] 2:01pm Adopted November 11, 2024 2:55p m Allergy to adhesive tape November 11, 2024 2:55pm Anxiety November 11, 2024 2:55p m Circumvallate placenta November 11, 2024 2: 55pm History of miscarriage, currently pregna nt November 11, 2024 2:55pm History of pre-eclampsia in prior , currently November 11, 2024 2:55pm Hx of gestational diabetes i n prior , currently November 11, 2024 2:55pm Marijuana use November 11, 2024 2:55p m Mild depression November 11, 2024 2:55p m Obesity affecting November 11 2:55pm Pelvic floor dysfunction in female October [id number] 2:55pm November 11, 2024 2:55p m Previous section November 11, 2024 2:55pm Supervision of high-risk October [id number] 2:55pm Adopted December 11, 2024 3:47 pm Allergy to adhesive tape December 11, 2024 3:47pm Anxiety December 11, 2024 3:47 pm Circumvallate placenta December 11, 2024 3 :47pm Gestational diabetes mellitu s (GDM) affecting , antepartum December 11, 2024 3:47pm History of miscarriage, currently pregna nt December 11, 2024 3:47pm History of pre-eclampsia in prior , currently December 11, 2024 3:47pm Hx of gestational diabetes i n prior , currently December 11, 2024 3:47pm Marijuana use December 11, 2024 3:47 pm Mild depression December 11, 2024 3:47 pm Obesity affecting December 11, 2 025 3:47pm Pelvic floor dysfunction in female December 11, 2024 3:47pm December 11, 2024 3:47 pm Previous section December 11 3:47pm Supervision of high-risk December 11, 2024 3:47pm Gestational diabetes mellitu s (GDM) affecting , antepartum December 16, 2024 10:37am Adopted December 26, 2024 2:34 pm Allergy to adhesive tape December 26, 2024 2:34pm Anxiety December 26, 2024 2:34 pm Circumvallate placenta December 26, 2024 2 :34pm Gestational diabetes mellitu s (GDM) affecting , antepartum December 26, 2024 2:34pm History of miscarriage, currently pregna nt December 26, 2024 2:34pm History of pre-eclampsia in prior , currently December 26, 2024 2:34pm Hx of gestational diabetes i n prior , currently December 26, 2024 2:34pm Marijuana use December 26, 2024 2:34 pm Mild depression December 26, 2024 2:34 pm Obesity affecting December 26, 2 025 2:34pm Pelvic floor dysfunction in female December 26, 2024 2:34pm December 26, 2024 2:34 pm Previous section December 26 2:34pm Supervision of high-risk December 26, 2024 2:34pm Adopted January 08, 2025 12:3 6pm Anxiety January 08, 2025 12:3 6pm Circumvallate placenta January 08, 2025 1 2:36pm Gestational diabetes mellitu s (GDM) affecting , antepartum January 08, 2025 12:36pm History of miscarriage, currently pregna nt January 08, 2025 12:36pm History of pre-eclampsia in prior , currently January 08, 2025 12:36pm Hx of gestational diabetes i n prior , currently January 08, 2025 12:36pm Marijuana use January 08, 2025 12:3 6pm Mild depression January 08, 2025 12:3 6pm Obesity affecting January 08, 2 025 12:36pm January 08, 2025 12:3 6pm Previous section January 08 12:36pm Supervision of high-risk January 08, 2025 12:36pm Headache in January 08, 2025 12 :36pm Adopted January 08, 2025 1:46 pm Allergy to adhesive tape January 08, 2025 1:46pm Anxiety January 08, 2025 1:46 pm Circumvallate placenta January 08, 2025 1 :46pm Gestational diabetes mellitu s (GDM) affecting , antepartum January 08, 2025 1:46pm History of miscarriage, currently pregna nt January 08, 2025 1:46pm History of pre-eclampsia in prior , currently January 08, 2025 1:46pm Hx of gestational diabetes i n prior , currently January 08, 2025 1:46pm Marijuana use January 08, 2025 1:46 pm Mild depression January 08, 2025 1:46 pm Obesity affecting January 08 1:46pm Pelvic floor dysfunction in female January 08, 2025 1:46pm January 08, 2025 1:46 pm Previous section January 08 1:46pm Supervision of high-risk January 08, 2025 1:46pm Headache in January 08, 2025 1: 46pm Adopted January 13, 2025 6:37 pm Allergy to adhesive tape January 13, 2025 6:37pm Anxiety January 13, 2025 6:37 pm Circumvallate placenta January 13, 2025 6 :37pm Gestational diabetes mellitu s (GDM) affecting , antepartum January 13, 2025 6:37pm History of miscarriage, currently pregna nt January 13, 2025 6:37pm History of pre-eclampsia in prior , currently January 13, 2025 6:37pm Hx of gestational diabetes i n prior , currently January 13, 2025 6:37pm Marijuana use January 13, 2025 6:37 pm Mild depression January 13, 2025 6:37 pm Obesity affecting January 13, 025 6:37pm Pelvic floor dysfunction in female January 13, 2025 6:37pm January 13, 2025 6:37 pm Previous section January 13 6:37pm Supervision of high-risk January 13, 2025 6:37pm Headache in January 13, 2025 6: 37pm Adopted January 16, 2025 4:01 pm Allergy to adhesive tape January 16, 2025 4:01pm Anxiety January 16, 2025 4:01 pm Circumvallate placenta January 16, 2025 4 :01pm Gestational diabetes mellitu s (GDM) affecting , antepartum January 16, 2025 4:01pm History of miscarriage, currently pregna nt January 16, 2025 4:01pm History of pre-eclampsia in prior , currently January 16, 2025 4:01pm Hx of gestational diabetes i n prior , currently January 16, 2025 4:01pm Marijuana use January 16, 2025 4:01 pm Mild depression January 16, 2025 4:01 pm Obesity affecting January 16, 025 4:01pm Pelvic floor dysfunction in female January 16, 2025 4:01pm January 16, 2025 4:01 pm Previous section January 16 4:01pm Supervision of high-risk January 16, 2025 4:01pm Adopted January 22, 2025 2:43 pm Allergy to adhesive tape January 22, 2025 2:43pm Anxiety January 22, 2025 2:43 pm Circumvallate placenta January 22, 2025 2 :43pm Gestational diabetes mellitu s (GDM) affecting , antepartum January 22, 2025 2:43pm History of miscarriage, currently pregna nt January 22, 2025 2:43pm History of pre-eclampsia in prior , currently January 22, 2025 2:43pm Hx of gestational diabetes i n prior , currently January 22, 2025 2:43pm Marijuana use January 22, 2025 2:43 pm Mild depression January 22, 2025 2:43 pm Obesity affecting January 22, 2 025 2:43pm Pelvic floor dysfunction in female January 22, 2025 2:43pm January 22, 2025 2:43 pm Previous section January 22 2:43pm Supervision of high-risk January 22, 2025 2:43pm Additional Source Comments INFORMATION SOURCE (unrecogn ized section and content) DATE CREATED AUTHOR 12/24/2017 [facility], [place], operated [facility] DATE CREATED AUTHOR AUTHOR'S ORGANIZ ATION 12/25/2017 [facility] DATE CREATED AUTHOR AUTHOR'S ORGANIZ ATION 12/26/2017 [facility] Ce sasha Sarmiento DATE CREATED AUTHOR AUTHOR'S ORGANIZ ATION 05/12/[address] [facility] ([place]) DATE CREATED AUTHOR AUTHOR'S ORGANIZ ATION 09/24/2024 [facility] DATE CREATED AUTHOR AUTHOR'S ORGANIZ ATION 11/14/2024 [facility] DATE CREATED AUTHOR AUTHOR'S ORGANIZ ATION 01/21/2025 [facility] Care Teams (unrecognized sec tion and content) Team Status: Active Member Role Status Dates No Primary Care Physician Family Provider Active Bird Ruiz NP, INDUSTRIAL PSYCHOLOGY PROFESSOR-C Primary Care Provider Active Team Status: Inactive Member Role Status Dates Bird Ruiz NP, INDUSTRIAL PSYCHOLOGY PROFESSOR-C Primary Care Provider, Referri ng Provider Active Dr. Evelin Cardona DO Attending Provider Activ e Team Status: Inactive Member Role Status Dates Bird Ruiz NP, INDUSTRIAL PSYCHOLOGY PROFESSOR-C Primary Care Provider Active Dr. Evelin Cardona DO Attending Provider, Refe rring Provider Active Team Status: Inactive Member Role Status Dates Bird Ruiz NP, INDUSTRIAL PSYCHOLOGY PROFESSOR-C Primary Care Provider, Referri ng Provider Active Marietta Ghosh CNM Attending Provider Active Team Status: Inactive Member Role Status Dates Bird Ruiz NP, INDUSTRIAL PSYCHOLOGY PROFESSOR-C Primary Care Provider, Referri ng Provider Active Dr. Fadumo Zelaya MD Attending Provider Active Team Status: Inactive Member Role Status Dates Bird Ruiz NP, INDUSTRIAL PSYCHOLOGY PROFESSOR-C Primary Care Provider, Referri ng Provider Active Dr. Sha Vaughan MD Attending Provider Active Team Status: Inactive Member Role Status Dates Bird Ruiz NP, INDUSTRIAL PSYCHOLOGY PROFESSOR-C Primary Care Provider Active Dr. Fadumo Zelaya MD Attending Provider, Referr ing Provider Active Team Status: Inactive Member Role Status Dates Bird Ruiz NP, INDUSTRIAL PSYCHOLOGY PROFESSOR-C Primary Care Provider, Referri ng Provider Active Anisa [place] INDUSTRIAL PSYCHOLOGY PROFESSOR, INDUSTRIAL PSYCHOLOGY PROFESSOR-C Attending Provider Active Team Status: Inactive Member Role Status Dates Bird Ruiz INDUSTRIAL PSYCHOLOGY PROFESSOR, INDUSTRIAL PSYCHOLOGY PROFESSOR-C Primary Care Provider Active Anisa Blackmon NP, INDUSTRIAL PSYCHOLOGY PROFESSOR-C Attending Provider, Referring Provider Active Team Status: Active Member Role Status Dates Bird Ruiz INDUSTRIAL PSYCHOLOGY PROFESSOR, INDUSTRIAL PSYCHOLOGY PROFESSOR-C Primary Care Provider Active Marietta Ghosh CNM Attending Provider, Referring Pro vider Active Team Status: Active Member Role Status Dates Bird Ruiz INDUSTRIAL PSYCHOLOGY PROFESSOR, INDUSTRIAL PSYCHOLOGY PROFESSOR-C Primary Care Provider Active Dr. Evelin Cardona DO Attending Provider, Referring Provider, Other Provider Active Team Status: Inactive Member Role Status Dates Bird Ruiz INDUSTRIAL PSYCHOLOGY PROFESSOR, INDUSTRIAL PSYCHOLOGY PROFESSOR-C Primary Care Provider Active Marietta Ghosh CNM Attending Provider, Referring Pro vider Active Team Status: Active Member Role Status Dates Bird Ruiz NP, INDUSTRIAL PSYCHOLOGY PROFESSOR-C Primary Care Provider Active Dr. Fadumo Zelaya MD Admit Provid er, Attending Provider, Other Provider Active Team Status: Active Member Role Status Dates Bird Ruiz NP, INDUSTRIAL PSYCHOLOGY PROFESSOR-C Primary Care Provider Active Dr. Fadumo Zelaya MD Admit Provider, Other Prov ider Active Marietta Ghosh CNM Attending Provider Active Team Status: Active Member Role Status Dates Bird Ruiz NP, INDUSTRIAL PSYCHOLOGY PROFESSOR-C Primary Care Provider Active Dr. Fadumo Zelaya MD Admit Provider, Other Prov ider Active Anisa Blackmon INDUSTRIAL PSYCHOLOGY PROFESSOR, INDUSTRIAL PSYCHOLOGY PROFESSOR-C Attending Provider Active Team Status: Inactive Member Role Status Dates Bird Ruiz NP, INDUSTRIAL PSYCHOLOGY PROFESSOR-C Primary Care Provider Active Dr. Fadumo Zelaya MD Admit Provider, Attending Provider Active Team Status: Active Member Role Status Dates Bird Ruiz NP, INDUSTRIAL PSYCHOLOGY PROFESSOR-C Primary Care Provider Active Dr. Fadumo Zelaya MD Attending Provider, Referr ing Provider Active Team Status: Active Member Role Status Dates Bird Ruiz NP, INDUSTRIAL PSYCHOLOGY PROFESSOR-C Primary Care Provider Active Team Status: Inactive Member Role Status Dates Bird Ruiz INDUSTRIAL PSYCHOLOGY PROFESSOR, INDUSTRIAL PSYCHOLOGY PROFESSOR-C Primary Care Provider Active Start: July 21, 2024 End: July 21, 2024 Marietta Ghosh CNM Attending Provider Active S tart: July 21, 2024 End: July 21, 2024 Marietta Ghosh CNM Referring Provider Active S tart: July 21, 2024 End: July 21, 2024 Team Status: Inactive Member Role Status Dates Bird Ruiz NP, INDUSTRIAL PSYCHOLOGY PROFESSOR-C Primary Care Provider Active Start: August 01, 2024 End: August 01, 2024 Bird Ruiz NP, INDUSTRIAL PSYCHOLOGY PROFESSOR-C Referring Provider Active Start: August 01, 2024 End: August 01, 2024 Dr. Fadumo Zelaya MD Attending Provider Active Start: August 01, 2024 End: August 01, 2024 Team Status: Inactive Member Role Status Dates Bird Ruiz INDUSTRIAL PSYCHOLOGY PROFESSOR, INDUSTRIAL PSYCHOLOGY PROFESSOR-C Primary Care Provider Active Start: August 27, 2024 End: August 27, 2024 Bird Ruiz NP, INDUSTRIAL PSYCHOLOGY PROFESSOR-C Referring Provider Active Start: August 27, 2024 End: August 27, 2024 Dr. Fadumo Zelaya MD Attending Provider Active Start: August 27, 2024 End: August 27, 2024 Team Status: Inactive Member Role Status Dates Bird Ruiz NP, INDUSTRIAL PSYCHOLOGY PROFESSOR-C Primary Care Provider Active Start: October 02, 2024 End: October 02, 2024 Bird Ruiz INDUSTRIAL PSYCHOLOGY PROFESSOR, INDUSTRIAL PSYCHOLOGY PROFESSOR-C Referring Provider Active Start: October 02, 2024 End: October 02, 2024 Marietta Ghosh CNM Attending Provider Active S tart: October 02, 2024 End: October 02, 2024 Team Status: Inactive Member Role Status Dates Bird Ruiz NP, INDUSTRIAL PSYCHOLOGY PROFESSOR-C Primary Care Provider Active Start: October 31, 2024 End: October 31, 2024 Bird Ruiz NP, INDUSTRIAL PSYCHOLOGY PROFESSOR-C Referring Provider Active Start: October 31, 2024 End: October 31, 2024 Marietta Ghosh CNM Attending Provider Active S tart: October 31, 2024 End: October 31, 2024 Team Status: Inactive Member Role Status Dates Bird Ruiz NP, INDUSTRIAL PSYCHOLOGY PROFESSOR-C Primary Care Provider Active Start: November 11, 2024 End: November 11, 2024 Bird Ruiz NP, INDUSTRIAL PSYCHOLOGY PROFESSOR-C Referring Provider Active Start: November 11, 2024 End: November 11, 2024 Marietta Ghosh CNM Attending Provider Active S tart: November 11, 2024 End: November 11, 2024 Team Status: Active Member Role Status Dates Bird Ruiz NP, INDUSTRIAL PSYCHOLOGY PROFESSOR-C Primary Care Provider Active Start: November 11, 2024 Anisa Blackmon NP, INDUSTRIAL PSYCHOLOGY PROFESSOR-C Attending Provider Active Start: November 11, 2024 Anisa Blackmon NP, INDUSTRIAL PSYCHOLOGY PROFESSOR-C Referring Provider Active Start: November 11, 2024 Team Status: Inactive Member Role Status Dates Bird Ruiz NP, INDUSTRIAL PSYCHOLOGY PROFESSOR-C Primary Care Provider Active Start: November 11, 2024 End: November 11, 2024 Anisa Blackmon INDUSTRIAL PSYCHOLOGY PROFESSOR, INDUSTRIAL PSYCHOLOGY PROFESSOR-C Attending Provider Active Start: November 11, 2024 End: November 11, 2024 Anisa Blackmon INDUSTRIAL PSYCHOLOGY PROFESSOR, INDUSTRIAL PSYCHOLOGY PROFESSOR-C Referring Provider Active Start: November 11, 2024 End: November 11, 2024 Team Status: Inactive Member Role Status Dates Bird Ruiz NP, INDUSTRIAL PSYCHOLOGY PROFESSOR-C Primary Care Provider Active Start: December 11, 2024 End: December 11, 2024 Bird Ruiz NP, INDUSTRIAL PSYCHOLOGY PROFESSOR-C Referring Provider Active Start: December 11, 2024 End: December 11, 2024 Anisa Blackmon INDUSTRIAL PSYCHOLOGY PROFESSOR, INDUSTRIAL PSYCHOLOGY PROFESSOR-C Attending Provider Active Start: December 11, 2024 End: December 11, 2024 Team Status: Inactive Member Role Status Dates Bird Ruiz NP, INDUSTRIAL PSYCHOLOGY PROFESSOR-C Primary Care Provider Active Start: December 16, 2024 End: December 16, 2024 Bird Ruiz NP, INDUSTRIAL PSYCHOLOGY PROFESSOR-C Referring Provider Active Start: December 16, 2024 End: December 16, 2024 Dr. Sha Vaughan MD Attending Provider Active Sta rt: December 16, 2024 End: December 16, 2024 Team Status: Inactive Member Role Status Dates Bird Ruiz NP, INDUSTRIAL PSYCHOLOGY PROFESSOR-C Primary Care Provider Active Start: December 17, 2024 End: December 17, 2024 Marietta Ghosh CNM Attending Provider Active S tart: December 17, 2024 End: December 17, 2024 Marietta Ghosh CNM Referring Provider Active S tart: December 17, 2024 End: December 17, 2024 Team Status: Active Member Role/Relationship Status Dates Bird Ruiz NP, INDUSTRIAL PSYCHOLOGY PROFESSOR-C Primary Care Provider Active Team Status: Inactive Member Role/Relationship Status Dates Bird Ruiz NP, INDUSTRIAL PSYCHOLOGY PROFESSOR-C Primary Care Provider Active Start: October 02, 2024 End: October 02, 2024 Bird Ruiz NP, INDUSTRIAL PSYCHOLOGY PROFESSOR-C Referring Provider Active Start: October 02, 2024 End: October 02, 2024 Marietta Ghosh CNM Attending Provider Active S tart: October 02, 2024 End: October 02, 2024 Team Status: Inactive Member Role/Relationship Status Dates Bird Ruiz NP, INDUSTRIAL PSYCHOLOGY PROFESSOR-C Primary Care Provider Active Start: October 31, 2024 End: October 31, 2024 Bird Ruiz NP, INDUSTRIAL PSYCHOLOGY PROFESSOR-C Referring Provider Active Start: October 31, 2024 End: October 31, 2024 Marietta Ghosh CNM Attending Provider Active S tart: October 31, 2024 End: October 31, 2024 Team Status: Inactive Member Role/Relationship Status Dates Bird Ruiz NP, INDUSTRIAL PSYCHOLOGY PROFESSOR-C Primary Care Provider Active Start: November 11, 2024 End: November 11, 2024 Bird Ruiz NP, INDUSTRIAL PSYCHOLOGY PROFESSOR-C Referring Provider Active Start: November 11, 2024 End: November 11, 2024 Marietta Ghosh CNM Attending Provider Active S tart: November 11, 2024 End: November 11, 2024 Team Status: Inactive Member Role/Relationship Status Dates Bird Ruiz NP, INDUSTRIAL PSYCHOLOGY PROFESSOR-C Primary Care Provider Active Start: November 11, 2024 End: November 11, 2024 Anisa Blackmon NP, INDUSTRIAL PSYCHOLOGY PROFESSOR-C Attending Provider Active Start: November 11, 2024 End: November 11, 2024 Anisa Blackmon NP, INDUSTRIAL PSYCHOLOGY PROFESSOR-C Referring Provider Active Start: November 11, 2024 End: November 11, 2024 Team Status: Inactive Member Role/Relationship Status Dates Bird Ruiz NP, INDUSTRIAL PSYCHOLOGY PROFESSOR-C Primary Care Provider Active Start: December 11, 2024 End: December 11, 2024 Bird Ruiz INDUSTRIAL PSYCHOLOGY PROFESSOR, INDUSTRIAL PSYCHOLOGY PROFESSOR-C Referring Provider Active Start: December 11, 2024 End: December 11, 2024 Anisa Blackmon NP, INDUSTRIAL PSYCHOLOGY PROFESSOR-C Attending Provider Active Start: December 11, 2024 End: December 11, 2024 Team Status: Inactive Member Role/Relationship Status Dates Bird Ruiz NP, INDUSTRIAL PSYCHOLOGY PROFESSOR-C Primary Care Provider Active Start: December 16, 2024 End: December 16, 2024 Bird Ruiz NP, INDUSTRIAL PSYCHOLOGY PROFESSOR-C Referring Provider Active Start: December 16, 2024 End: December 16, 2024 Dr. Sha Vaughan MD Attending Provider Active Sta rt: December 16, 2024 End: December 16, 2024 Team Status: Inactive Member Role/Relationship Status Dates Bird Ruiz NP, INDUSTRIAL PSYCHOLOGY PROFESSOR-C Primary Care Provider Active Start: December 17, 2024 End: December 17, 2024 Marietta Ghosh CNM Attending Provider Active S tart: December 17, 2024 End: December 17, 2024 Marietta Ghosh CNM Referring Provider Active S tart: December 17, 2024 End: December 17, 2024 Team Status: Inactive Member Role/Relationship Status Dates Bird Ruiz INDUSTRIAL PSYCHOLOGY PROFESSOR, INDUSTRIAL PSYCHOLOGY PROFESSOR-C Primary Care Provider Active Start: December 26, 2024 End: December 26, 2024 Bird Ruiz INDUSTRIAL PSYCHOLOGY PROFESSOR, INDUSTRIAL PSYCHOLOGY PROFESSOR-C Referring Provider Active Start: December 26, 2024 End: December 26, 2024 Dr. Fadumo Zelaya MD Attending Provider Active Start: December 26, 2024 End: December 26, 2024 Team Status: Active Member Role/Relationship Status Dates Bird Ruiz INDUSTRIAL PSYCHOLOGY PROFESSOR, INDUSTRIAL PSYCHOLOGY PROFESSOR-C Primary Care Provider Active Start: December 26, 2024 Dr. Fadumo Zelaya MD Attending Provider Active Start: December 26, 2024 Dr. Fadumo Zelaya MD Referring Provider Active Start: December 26, 2024 Team Status: Inactive Member Role/Relationship Status Dates Bird Ruiz INDUSTRIAL PSYCHOLOGY PROFESSOR, INDUSTRIAL PSYCHOLOGY PROFESSOR-C Primary Care Provider Active Start: December 26, 2024 End: December 26, 2024 Dr. Fadumo Zelaya MD Attending Provider Active Start: December 26, 2024 End: December 26, 2024 Dr. Fadumo Zelaya MD Referring Provider Active Start: December 26, 2024 End: December 26, 2024 Team Status: Active Member Role/Relationship Status Dates Bird Ruiz INDUSTRIAL PSYCHOLOGY PROFESSOR, INDUSTRIAL PSYCHOLOGY PROFESSOR-C Primary Care Provider Active Start: January 01, 2025 Marietta Ghosh CNM Attending Provider Active S tart: January 01, 2025 Marietta Ghosh CNM Referring Provider Active S tart: January 01, 2025 Dr. Fadumo Zelaya MD Other Provider Active Start: January 01, 2025 Team Status: Active Member Role/Relationship Status Dates Bird Ruiz INDUSTRIAL PSYCHOLOGY PROFESSOR, INDUSTRIAL PSYCHOLOGY PROFESSOR-C Primary Care Provider Active Start: January 08, 2025 Dr. Fadumo Zelaya MD Attending Provider Active Start: January 08, 2025 Dr. Fadumo Zelaya MD Referring Provider Active Start: January 08, 2025 Team Status: Inactive Member Role/Relationship Status Dates Bird Ruiz INDUSTRIAL PSYCHOLOGY PROFESSOR, INDUSTRIAL PSYCHOLOGY PROFESSOR-C Primary Care Provider Active Start: January 08, 2025 End: January 08, 2025 Bird Ruiz INDUSTRIAL PSYCHOLOGY PROFESSOR, INDUSTRIAL PSYCHOLOGY PROFESSOR-C Referring Provider Active Start: January 08, 2025 End: January 08, 2025 Anisa [place] INDUSTRIAL PSYCHOLOGY PROFESSOR, INDUSTRIAL PSYCHOLOGY PROFESSOR-C Attending Provider Active Start: January 08, 2025 End: January 08, 2025 Team Status: Inactive Member Role/Relationship Status Dates Bird Ruiz INDUSTRIAL PSYCHOLOGY PROFESSOR, INDUSTRIAL PSYCHOLOGY PROFESSOR-C Primary Care Provider Active Start: January 08, 2025 End: January 08, 2025 Dr. Fadumo Zelaya MD Referring Provider Active Start: January 08, 2025 End: January 08, 2025 Dr. Fadumo Zelaya MD Other Provider Active Start: January 08, 2025 End: January 08, 2025 Dr. Evelin Cardona , DO Attending Provider Activ e Start: January 08, 2025 End: January 08, 2025 Team Status: Inactive Member Role/Relationship Status Dates Bird Ruiz INDUSTRIAL PSYCHOLOGY PROFESSOR, INDUSTRIAL PSYCHOLOGY PROFESSOR-C Primary Care Provider Active Start: January 01, 2025 End: January 01, 2025 Marietta Ghosh CNM Attending Provider Active S tart: January 01, 2025 End: January 01, 2025 Marietta Ghosh CNM Referring Provider Active S tart: January 01, 2025 End: January 01, 2025 Dr. Fadumo Zelaya MD Other Provider Active Start: January 01, 2025 End: January 01, 2025 Team Status: Active Member Role/Relationship Status Dates Brid Ruiz NP, INDUSTRIAL PSYCHOLOGY PROFESSOR-C Primary Care Provider Active Start: January 08, 2025 Dr. Fadumo Zelaya MD Referring Provider Active Start: January 08, 2025 Dr. Fadumo Zelaya MD Other Provider Active Start: January 08, 2025 Dr. Evelin Cardona DO Attending Provider Activ e Start: January 08, 2025 Dr. Evelin Cardona DO Other Provider Active Start: January 08, 2025 Team Status: Inactive Member Role/Relationship Status Dates Bird Ruiz NP, INDUSTRIAL PSYCHOLOGY PROFESSOR-C Primary Care Provider Active Start: January 13, 2025 End: January 13, 2025 Dr. Evelin Cardona DO Attending Provider Activ e Start: January 13, 2025 End: January 13, 2025 Dr. Evelin Cardona DO Referring Provider Activ e Start: January 13, 2025 End: January 13, 2025 Team Status: Active Member Role/Relationship Status Dates Bird Ruiz NP, INDUSTRIAL PSYCHOLOGY PROFESSOR-C Primary Care Provider Active Start: January 13, 2025 Dr. Evelin Cardona DO Attending Provider Activ e Start: January 13, 2025 Dr. Evelin Cardona DO Referring Provider Activ e Start: January 13, 2025 Dr. Evelin Cardona DO Other Provider Active Start: January 13, 2025 Team Status: Inactive Member Role/Relationship Status Dates Bird Ruiz INDUSTRIAL PSYCHOLOGY PROFESSOR, INDUSTRIAL PSYCHOLOGY PROFESSOR-C Primary Care Provider Active Start: January 16, 2025 End: January 16, 2025 Bird Ruiz INDUSTRIAL PSYCHOLOGY PROFESSOR, INDUSTRIAL PSYCHOLOGY PROFESSOR-C Referring Provider Active Start: January 16, 2025 End: January 16, 2025 Dr. Fadumo Zelaya MD Attending Provider Active Start: January 16, 2025 End: January 16, 2025 Team Status: Active Member Role/Relationship Status Dates Bird Ruiz NP, INDUSTRIAL PSYCHOLOGY PROFESSOR-C Primary Care Provider Active Start: January 16, 2025 Dr. Fadumo Zelaya MD Attending Provider Active Start: January 16, 2025 Dr. Fadumo Zelaya MD Referring Provider Active Start: January 16, 2025 Team Status: Active Member Role/Relationship Status Dates Bird Ruiz NP, INDUSTRIAL PSYCHOLOGY PROFESSOR-C Primary Care Provider Active Start: January 22, 2025 Dr. Fadumo Zelaya MD Attending Provider Active Start: January 22, 2025 Dr. Fadumo Zelaya MD Referring Provider Active Start: January 22, 2025 Team Status: Inactive Member Role/Relationship Status Dates Bird Ruiz INDUSTRIAL PSYCHOLOGY PROFESSOR, INDUSTRIAL PSYCHOLOGY PROFESSOR-C Primary Care Provider Active Start: January 22, 2025 End: January 22, 2025 Bird Ruiz NP, INDUSTRIAL PSYCHOLOGY PROFESSOR-C Referring Provider Active Start: January 22, 2025 End: January 22, 2025 Dr. Fadumo Zelaya MD Attending Provider Active Start: January 22, 2025 End: January 22, 2025 Team Status: Inactive Member Role/Relationship Status Dates Bird Ruiz NP, INDUSTRIAL PSYCHOLOGY PROFESSOR-C Primary Care Provider Active Start: January 16, 2025 End: January 16, 2025 Dr. Fadumo Zelaya MD Attending Provider Active Start: January 16, 2025 End: January 16, 2025 Dr. Fadumo Zelaya MD Referring Provider Active Start: January 16, 2025 End: January 16, 2025 Goals (unrecognized section and content) Goals may be documented in a n alternate sectionGoals may be documented in an alternate sectionGoals may be documented in an alternate sectionGoals may be documented in an alternate sectionGoals may be documented in an alternate sectionGoals may be documented in an alternate sectionGoals may be documented in an alternate sectionGoals may be documented in an alternate sectionGoals may be documented in an alternate sectionGoals may be documented in an alternate sectionGoals may be documented in an alternate sectionGoals may be documented in an alternate sectionGoals may be documented in an alternate sectionGoals may be documented in an alternate sectionGoals may be documented in an alternate sectionGoals may be documented in an alternate sectionGoals may be documented in an alternate sectionGoals may be documented in an alternate sectionGoals may be documented in an alternate sectionGoals may be documented in an alternate sectionGoals may be documented in an alternate sectionGoals may be documented in an alternate sectionGoals may be documented in an alternate sectionGoals may be documented in an alternate section FOR RECORDS PERTAINING TO PATIENTS WHO ARE [...] BE BASED ON THE PRIMARY CLINICAL RECORDS. [facility]. provides no warranty or guarantee of the accuracy or completeness of information in this document.
== END 2025-01-22 23:59 | disposition home or self-care (01) ==
LOC: US 13:33
PROVIDERS: PCP Nurse Practitioner Family; Referring Provider Obstetrics & Gynecology; Visit Provider Obstetrics & Gynecology
DX: O26.893 Other specified pregnancy related conditions, third trimester (principal); R51.9 Headache, unspecified; Z3A.35 35 weeks gestation of pregnancy
CPT/HCPCS: 76819

== ENCOUNTER 2025-01-30 05:14 | Inpatient (IN) | payer SELFPAY ==
[2025-01-30] VITALS (16 sets, daily range): BP systolic 106–135; BP diastolic 56–89; PULSE 60–79; RESP 15–18; TEMP 36.1–36.7; O2SAT 97–100; BMI 48.7
--- OUTSIDE RECORDS SUMMARY | 2025-01-30 05:16 | XMS RPT_ITS | CCD ---
Author Organization [facility] Care Team Providers Care Mud Mill Tender Name Role Phone Mahnaz, Ali Alban Unavailable Unavailable *SELF, REFERRED Unavailable Unavailable Sukumar Joya Unavailable Unavailable CAROLYNE CURRY Unavailable Unavailable Michelle Roberts Unavailable Unavailable Maribel Mccabe Unavailable Unavailable Joseph INSPECTING MACHINE ADJUSTER, INSPECTING MACHINE ADJUSTER-C Bird Primary Care Provider [phone] Joseph INSPECTING MACHINE ADJUSTER, INSPECTING MACHINE ADJUSTER-C Bird Referring Provider Dr. Evelin Cardona Attending Provider Dr. Sha Vaughan Attending Provider RACHAEL Ghosh Attending Provider Dr. Fadumo Zelaya Attending Provider Joseph ZURITA, INSPECTING MACHINE ADJUSTER-C Bird Primary Care Provider Joseph ZURITA, INSPECTING MACHINE ADJUSTER-C Bird Referring Provider [phone] RACHAEL Ghosh Attending Provider Dr. Fadumo Zelaya Attending Provider Dr. Sha Vaughan Attending Provider [phone] Neymar INSPECTING MACHINE ADJUSTER, INSPECTING MACHINE ADJUSTER-C Anisa Attending Provider Joseph ZURITA, INSPECTING MACHINE ADJUSTER-C Bird Primary Care Provider Joseph ZURITA, INSPECTING MACHINE ADJUSTER-C Bird Referring Provider RACHAEL Ghosh Attending Provider Joseph INSPECTING MACHINE ADJUSTER, INSPECTING MACHINE ADJUSTER-C Bird Primary Care Provider [phone] Joseph INSPECTING MACHINE ADJUSTER, INSPECTING MACHINE ADJUSTER-C Bird Referring Provider Dr. Fadumo Zelaya Attending Provider Dr. Evelin Cardona Attending Provider [phone] Dr. Evelin Cardona Referring Provider [phone]( [phone] Dr. Evelin Cardona Other Provider Dr. Fadumo Zelaya Admit Provider [phone] Dr. Fadumo Zelaya Other Provider [phone] JOSEPH, BIRD CERVANTES Primary Care Unavailable JOSEPH, BIRD ONCOLOGY RN Consulting Unavailable JOSEPH, IBRD ONCOLOGY RN Attending Unavailable JOSEPH, BIRD ONCOLOGY RN Admitting Unavailable PROVIDER, UNKNOWN Consulting Unavailable PROVIDER, UNKNOWN Consulting Unavailable JOSEPH, BIRD ONCOLOGY RN Primary Care Unavailable JOSEPH, BIRD ONCOLOGY RN Consulting Unavailable JOSEPH, BIRD ONCOLOGY RN Attending Unavailable JOSEPH, BIRD ONCOLOGY RN Admitting Unavailable PROVIDER, UNKNOWN Consulting Unavailable PROVIDER, UNKNOWN Consulting Unavailable JOSEPH, BIRD ONCOLOGY RN Primary Care Unavailable JOSEPH, BIRD ONCOLOGY RN Consulting Unavailable JOSEPH, BIRD ONCOLOGY RN Attending Unavailable JOSEPH, BIRD ONCOLOGY RN Admitting Unavailable PROVIDER, UNKNOWN Consulting Unavailable PROVIDER, UNKNOWN Consulting Unavailable Joseph INSPECTING MACHINE ADJUSTER-C, Bird Primary Care Provider Marietta Ghosh CNM Attending Provider [phone] Marietta Ghosh CNM Referring Provider [phone] Joseph INSPECTING MACHINE ADJUSTER-C, Bird Referring Provider Dr. Fadumo Zelaya MD Attending Provider [phone] Neymar INSPECTING MACHINE ADJUSTER-CAnisa Attending Provider [phone] Neymar INSPECTING MACHINE ADJUSTER-CAnisa Referring Provider [phone] BIRD RUIZ Primary Care Unavailable FADUMO ZELAYA Referring Unavailabl e FADUMO ZELAYA Attending Unavailabl e FADUMO ZELAYA Attending Unavailabl e BIRD RUIZ Primary Care Unavailable FADUMO ZELAYA Referring Unavailabl e Joseph INSPECTING MACHINE ADJUSTER-C, Bird Primary Care Provider Joseph ZURITA-CBrid Referring Provider Dr. Fadumo Zelaya MD Attending Provider Marietta Ghosh CNM Attending Provider [phone] Dr. Sha Vaughan MD Attending Provider [phone] Augie CNM, Marietta Referring Provider [phone] Joseph INSPECTING MACHINE ADJUSTER-C, Bird Primary Care Provider Joseph INSPECTING MACHINE ADJUSTER-C, Bird Referring Provider Alex LUNA, Dr. Thorne Attending Provider Alex LUNA, Dr. Thorne Referring Provider Alex LUAN, Dr. Thorne Other Provider [phone] Pooja Porter DO, Dr. Waters Attending Provider Pooja Porter DO, Dr. Waters Other Provider [phone] Pooja Porter DO, Dr. Waters Referring Provider Anisa Blackmon Attending Unavailable Joseph, Bird Referring Unavailable Joseph, Bird Primary Care Unavailable Anisa Blackmon Attending Unavailable NeymarAnisa benjamin Referring Unavailable Joseph, Bird Primary Care Unavailable Mykeanthony, Fadumo Attending Unavailable Marcanthony, Fadumo Referring Unavailable Joseph, Bird Primary Care Unavailable Joseph, Bird Primary Care Unavailable Augie, Marietta Attending Unavailable Augie, Marietta Referring Unavailable NeymarAnisa benjamin Attending Unavailable Joseph, Bird Referring Unavailable Joseph, Bird Primary Care Unavailable Arturo Valentine Attending Unavailable Joseph, Bird Referring Unavailable Joseph, Bird Primary Care Unavailable Augie, Marietta Attending Unavailable Joseph, Bird Referring Unavailable Joseph, Bird Primary Care Unavailable Sha Vaughan Attending Unavailable Joseph, Bird Referring Unavailable Joseph, Bird Primary Care Unavailable Augie, Marietta Attending Unavailable Augie, Marietta Referring Unavailable Joseph, Bird Primary Care Unavailable Marcanthony, Fadumo Attending Unavailable Marcanthony, Fadumo Referring Unavailable Joseph, Bird Primary Care Unavailable Augie, Marietta Attending Unavailable Augie, Marietta Referring Unavailable Joseph, Bird Primary Care Unavailable Marcanthony, Fadumo Consulting Unavailable Marcanthony, Fadumo Referring Unavailable Joseph, Bird Primary Care Unavailable Evelin Cardona Attending Unavailabl e Marcanthony, Fadumo Consulting Unavailable Joseph, Bird Referring Unavailable Joseph, Bird Primary Care Unavailable Mykeanthony, Fadumo Attending Unavailable Augie, Marietta Attending Unavailable Joseph, Bird Referring Unavailable Joseph, Bird Primary Care Unavailable Joseph, Bird Referring Unavailable Joseph, Bird Primary Care Unavailable Marcanthony, Fadumo Attending Unavailable Marcanthony, Fadumo Attending Unavailable Joseph, Bird Referring Unavailable Joseph, Bird Primary Care Unavailable Vande Velde, Evelin Attending Unavailabl e Vande Velde, Evelin Referring Unavailabl e Joseph, Bird Primary Care Unavailable Marcanthony, Fadumo Attending Unavailable Joseph, Bird Primary Care Unavailable Marietta Ghosh Attending Unavailable Marietta Ghosh Referring Unavailable Joseph, Bird Primary Care Unavailable Marcanthony, Fadumo Attending Unavailable Marcanthony, Fadumo Referring Unavailable Joseph, Bird Primary Care Unavailable Marietta Ghosh Attending Unavailable Joseph, Bird Referring Unavailable Joseph, Bird Primary Care Unavailable Marietta Ghosh Attending Unavailable Joseph, Bird Referring Unavailable Joseph, Bird Primary Care Unavailable Vande Velde, Evelin Attending Unavailabl e Vande Velde, Evelin Referring Unavailabl e Joseph, Bird Primary Care Unavailable Vande Velde, Evelin Consulting Unavailabl e Anisa Blackmon Attending Unavailable Joseph, Bird Referring Unavailable Joseph, Bird Primary Care Unavailable Joseph, Bird Referring Unavailable Joseph, Bird Primary Care Unavailable Marietta Ghosh Attending Unavailable Vande Velde, Evelin Attending Unavailabl e Marcanthony, Fadumo Referring Unavailable Joseph, Bird Primary Care Unavailable Marcanthony, Fadumo Consulting Unavailable Vande Velde, Evelin Consulting Unavailabl e Marcanthony, Fadumo Attending Unavailable Joseph, Bird Referring Unavailable Joseph, Bird Primary Care Unavailable Marcanthony, Fadumo Attending Unavailable Joseph, Bird Referring Unavailable Joseph, Bird Primary Care Unavailable Allergies Allergy Classification Reported Allergen(s) Allergy Type Date of Onset Reaction(s) Facility (17 sources) Adhesive Tape; Translations: [adhesive tape] Allergy to substance 11-11-2024 [facility] Comment on above: mepilex dressing Medications Current Medications Medication Drug Class(es) Dates Sig (Normalized) Sig (Original) Blood-Glucose Meter (11 sources) Start: 02-08-2023 Blood-Glucose Meter Active 0 .[employer] [email or web address] 1 February 07, 2023 11:00pm As directed- [...] 2 February 13, 2023 12:00am As directed Blood-Glucose,Automotive Design Drafter,Cont (Freestyle Dot 3 [place]) misc (14 sources) Start: 12-03-2024 Blood-Glucose,Automotive Design Drafter,Cont (Freestyle Dot 3 [place]) misc Active 0 .Route 1 0 December 03, 2024 12:00am As directed Start: 12-03-2024 Blood-Glucose, Automotive Design Drafter,Cont (Freestyle Dot 3 [place]) misc Active 0 .Route 1 December 03, 2024 12:00am As directed Insulin Degludec (Tresiba Flextouch U-100) 100 unit/mL (3 mL) insulin pen (14 sources) Start: 01-16-2025 Insulin Deglud ec (Tresiba [...] 2025 12:00am metoclopramide 10 mg oral tablet (16 sources) Dopamine-2 Receptor Antagonist Start: 08-27-2024 take 5 tablets by mouth three times daily as needed Metoclopramide Hcl (Reglan) 10 mg tablet Active 10 mg PO THREE TIMES A DAY August 27, 2024 1:00am nausea take as needed for headaches with 1000mg of tylenol and 50 mg of caffeine Mv-Mins 77-Yuvq-Qpzkr No.1-Dha (Pnv-Windsor) 28-1-300 mg capsule (20 sources) Start: 01-11-2023 Mv-Mins 71-Ymhe-Ibsph No.1-Dha (Pnv-Windsor) 28-1-300 mg capsule Active 300 NMA PO DAILY January 11, 2023 12:00am Start: 01-11-2023 Mv-Mins 71-Iro n-Folic No.1-Dha (Pnv-Windsor) 28-1-300 mg capsule Active 300 NMA PO DAILY January 11, 2023 12:00am Start: 01-11-2023 take 1 capsule by mo uth once daily Mv-Mins 38-Cgap-Yvxam No.1-Dha (Pnv-Windsor) 28-1-300 mg capsule Active 300 CAP PO DAILY January 10, 2023 11:00pm Start: 01-11-2023 take 1 capsule by mouth once M v-Mins 81-Hdfw-Ybvdr No.1-Dha (Pnv-Windsor) 28-1-300 mg capsule Active CAP PO January 10, 2023 11:00pm Start: 01-11-2023 take 1 capsule by mouth once M v-Mins 88-Muxe-Jyciq No.1-Dha (Pnv-Windsor) 28-1-300 mg capsule Active CAP PO January [...] mg/ml / clotrimazole 10 mg/ml topical cream (16 sources) Azole Antifungal, Corticosteroid Start: 09-04-2023 End: 06-30-2024 Clotrimazole-Betamethasone 1-0.05 % cream Discontinued 1 NMA TOPICAL TWICE A DAY 45 14 1 September 04, 2023 1:00am June 30, 2024 12:21pm Blood-Glucose Meter misc (16 sources) Start: 02-08-2023 End: 09-04-2023 Blood-Glucose Meter [...] Glucose Scanning Reade r (Freestyle Dot 2 [place]) misc (15 sources) Start: 11-12-2024 End: 12-16-2024 Flash Glucose Scanning Reade r (Freestyle Dot 2 [place]) misc Discontinued 0 .Route 1 0 November 12, 2024 12:00am December 16, 2024 10:41am As directed Start: 11-12-2024 End: 12-16-2024 Flash Glucose Scanning Reade r (Freestyle Dot 2 [place]) misc Discontinued 0 .Route 1 November 12, 2024 12:00am December 16, 2024 10:41am As directed Start: 11-12-2024 Flash Glucose Scanning York (Freestyle Dot 2 [place]) misc Active 0 .Route 1 November 12, 2024 12:00am As directed Flash Glucose Sensor (Freest yle Dot 2 Sensor) kit (15 sources) Start: 11-12-2024 End: 12-16-2024 Flash Glucose [...] insulin pen Discontinued 40 U SC DAILY 9 February 13, 2023 12:00am March 23, 2023 2:13pm [...] 2:13pm metFORMIN hydrochloride 1000 mg oral tablet (13 sources) Biguanide Start: 12-16-2024 End: 01-13-2025 take [...] 07, 2020 August 16, 2020 3:35pm Pediatric Dpojcour-Eqkm-Tzl (Flintstones Complete (Iron)) tablet,chewable (20 sources) Start: 03-24-2020 End: 04-26-2020 Pediatric Cawliipw-Wrst-Jgf (Flintstones Complete (Iron)) tablet,chewable Discontinued 2 {tbl} PO DAILY 90 3 March 24, 2020 12:00am April 26, 2020 1:40pm administer with a meal Start: 03-24-2020 End: 04-26-2020 Pediatric Yleuazkh-Atzq-Fsn (Flintstones Complete (Iron)) tablet,chewable Discontinued 2 {tbl} PO DAILY March 24, 2020 12:00am April 26, 2020 1:40pm administer with a meal Start: 03-24-2020 End: 04-26-2020 take 2 tablets by mouth once daily Pediatric Tcxkouqz-Nxim-Xdk (Flintstones Complete (Iron)) tablet,chewable Discontinued 2 TABLET PO DAILY March 23, 2020 11:00pm April 26, 2020 12:40pm administer with a meal Start: 03-24-2020 End: 04-26-2020 take 2 tablets by mouth once daily Pediatric Lphucozr-Ktjl-Dgc (Flintstones Complete (Iron)) tablet,chewable Discontinued 2 TABLET PO DAILY March 24, 2020 12:00am April 26, 2020 1:40pm administer with a meal Pnv #76-Wbro-Iqwnm Acid-Omeg a3 30 mg iron-10 mg iron-1 mg capsule (20 sources) Start: 04-26-2020 End: 08-16-2020 Pnv #48-Cfth-Jubco Acid-Omeg a3 30 mg iron-10 mg iron-1 mg capsule Discontinued 1 NMA PO DAILY April 26, 2020 12:00am August 16, 2020 3:35pm vitamin Start: 04-26-2020 End: 08-16-2020 Pnv #55-Hqtj-Iarxr Acid-Omeg a3 30 mg iron-10 mg iron-1 mg capsule Discontinued 1 NMA PO DAILY April 26, 2020 12:00am August 16, 2020 3:35pm Start: 01-19-2020 End: 01-30-2020 Pnv #01-Ahut-Bfuhg Acid-Omeg a3 30 mg iron-10 mg iron-1 mg capsule Discontinued 1 NMA PO daily 30 06January 19, 2020 1:47pm January 30, 2020 1:50pm Start: 01-19-2020 End: 01-30-2020 Pnv #13-Ycpl-Lhgqy Acid-Omeg a3 30 mg iron-10 mg iron-1 mg capsule Discontinued 1 NMA PO daily January 19, 2020 1:47pm January 30, 2020 1:50pm Start: 01-01-2020 End: 01-19-2020 Pnv #66-Wodm-Qqien Acid-Omeg a3 30 mg iron-10 mg iron-1 mg capsule Discontinued NMA PO January 01, 2020 12:00am January 19, 2020 1:48pm CWQ20-WL 400 mcg-om3 35 mg-dha 25 mg-epa 5 mg-fish oil chewable tablet (12 sources) Start: 01-30-2020 End: 03-24-2020 take 2 tablets by mouth once daily BPE96-HV 400 mcg-om3 35 mg-dha 25 mg-epa 5 mg-fish oil chewable tablet Discontinued 2 TABLET PO DAILY 60 January 29, 2020 11:00pm March 24, 2020 12:38pm Start: 01-30-2020 End: 03-24-2020 take 2 tablets by mouth once daily IXB99-FW 400 mcg-om3 35 mg-dha 25 mg-epa 5 mg-fish oil chewable tablet Discontinued 2 TABLET PO DAILY 60 January 30, 2020 12:00am March 24, 2020 1:38pm Oty76-Py-Il9-Vwe-Dhv-Pbbx Oi l ( Gummy) 400 mcg-35 mg -25 mg-5 mg tablet,chewable (16 sources) Start: 01-30-2020 End: 03-24-2020 Iwr19-Bf-Jq5-Tlm-Hlv-Ozax Oi l ( Gummy) 400 mcg-35 mg -25 mg-5 mg tablet,chewable Discontinued 2 {tbl} PO DAILY 60 12 January 30, 2020 12:00am March 24, 2020 1:38pm Start: 01-30-2020 End: 03-24-2020 Qki83-Bw-Wa2-Yev-Ivf-Zuro Oi l ( Gummy) 400 mcg-35 mg [...] PRN Conditions associated with dizziness or vertigo (16 sources) Lightheadedness; Translations: [Dizziness and giddiness] 06-30-2024 [...] Vaughan. nutrition consult on NPH insulin at [facility]. discussed if polyhydramnios may recommend 38 week delivery on NPH insulin at [facility]. discussed if polyhydramnios may recommend 38 week delivery. C/s 01/30 SM. Early or threatened labor (20 sources) False labor before 37 completed weeks of gestation; Translations: [False labor before 37 completed weeks of gestation, third trimester] 07-25-2023 Episodic Comment on above: ROM plus negative on 07/25/23 Genitourinary symptoms and ill-defined conditions (16 sources) Urinary incontinence; Translations: [Unspecified urinary incontinence] [...] of ; puerperium affecting management of mother (18 sources) Deliveries by ; Translations: [Encounter for [...] on above: Treated 01/29/23. 02/07:reexposure and retreated. 03/23/23- neg08/07/23-neg Other complications of (20 sources) History of [...] 01-09-2025 Episodic Other complications of (2 sources) Supervision of high risk , unspecified, third trimester; Translations: [Supervision of high risk , unspecified, third trimester] Onset: 01-19-2025 Episodic Other complications of (2 sources) Circumvallate [...] history, third trimester] Onset: 01-19-2025 Episodic Other complications of (1 source) Circumvallate placenta, unspecified trimester; Translations: [Circumvallate placenta, unspecified trimester] Onset: 12-24-2024 Episodic Other connective tissue disease (20 sources) [...] sources) Unknown / UNK(Unknown) Onset: 04-02-2017 Unclassified (15 sources) Z3A.27 - 27 weeks gestation of ,M62.89 - Other specified disorders of muscle Unclassified (11 sources) Unclassified (11 sources) Pelvic floor dysfunction in female Past [...] Episodic Unclassified (1 source) PRE EMP UDS [place] Onset: 06-05-2017 Unclassified (1 source) Z79.899 Onset: 04-02-2017 Results Test Name Value Interpretation Reference Range Facility Laboratory - Chemistry and C hemistry - challengeOrdered By: Fadumo Zelaya on 01-22-2025 Glucose Ql (U) Negative [facility] Laboratory - UrinalysisOrder ed By: Fadumo Zelaya on 01-22-2025 Protein Ql (U) Negative [facility] OB Biophysical Prof W/O NSTo n 01-22-2025 OB Biophysical Prof W/O NST [facility] Imaging Services [address], [place] [id number] OB Biophysical Prof W/O NST MR#: [id number] Acct: [id number] Name: AZAEL SULTANA Rep #: [id number] : 2000 F 24 From: Eduardo noe MD PCP: Bird Ruiz NP-C Status: REG CLI Study: OB Biophysical Prof W/O NST Date of Exam: 12/31 10/24 Exam# [id number] Ordering Dr: Fadumo Zelaya PROCEDURE: OB BIOPHYSICAL PROF W/O NST 01/22/2025 REASON FOR EXAM: WELL BEING TECHNIQUE: OB BIOPHYSICAL PROF W/O NST COMPARISON: Prior study dated January 08, 2025. FINDINGS Number: 1 Position: Vertex Placental Position: Anterior and not low-lying Placental Abnormalities: No evidence of previa. ESTIMATED GESTATIONAL AGE: Baseline: 37 weeks and 6 days Delete ESTIMATED DATE OF DELIVERY: Baseline: February 06, 2025. BIOPHYSICAL ASSESSMENT: Amniotic Fluid Volume: 6.6 cm Amniotic Fluid Index: 17 (8-24 cm normal range) Cardiac Motion: 153 beats per minute (average) Trunk and Limb Motion: Present. MATERNAL ANATOMY: Adnexa: Neither maternal ovary is successfully identified. Biophysical profile: Breathing movements: 2 Gross body movements: 2 tone: 2 Amniotic fluid volume: 2 Total score: 8/8 US/OB Biophysical Prof W/O NST IMPRESSION: Normal biophysical profile with a score of 8/8. Reading Location: [id number] CC: MING Ruiz; Dr. Fadumo Zelaya MD Pulp Piler: Signed Normal [facility] Trailer Technician Office Visit Reporton 01-22-2025 Trailer Technician Office Visit Report [facility] [address], [address] [place] [address] OFFICE VISIT Date of Service: 01/22/25 MR#: [id number] Acct: [id number] Name: AZAEL SULTANA Rep #: [id number] : 2000 Provider: Dr. Fadumo smith MD Age/Sex: 24/F Location: [facility] Status: Signed Intake Vital Signs 12/11/24 15:58 01/16/25 16:07 01/22/25 14:48 Height 5 ft 3 in 5 ft 3 in 5 ft 3 in Weight: 273 lb 6 oz BMI 48.4 BP 125/84 H Intake Visit Reasons: 38wk ob *csection 3D Artist Required: No Is patient in pain?: No Feel stressed/tense/nervous/ anxious/difficulty sleeping: not at all Allergies adhesive tape Allergy (Mild, Verified 01/22/25 14:54) Rash Medications ???Medication ???Instructions ???Recorded ???Confirmed ???Type multivit-min no.71-iron fum 28 300 cap PO DAILY 3 01/22/25 History mg-folate no.1 1 mg-dha 300 mg capsule (PNV-Windsor) ondansetron 4 mg disintegrating 4 mg PO Q4H PRN nausea and 4 01/22/25 Rx tablet vomiting #60 tabs metoclopramide HCl 10 mg tablet 10 mg PO TID nausea #90 tabs 08/2701/22/25 Rx (Reglan) 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 sensor (FreeStyle #1 ea 12/03/24 01/22/25 Rx Dot 3 Sensor device) 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,behavioral consultant, cont #1 ea 12/03/24 01/22/25 Rx (FreeStyle Dot 3 [place]) insulin degludec 100 unit/mL (3 46 unit [...] 2 current occupational status: employed current occupation: [employer] current occupational exposures/hazards: No pets and animals: [...] physical activity do you participate in: none matt/sabianist: None seatbelt use: always do you feel safe at home: Yes additional social history: Patient works at [employer]- Works at [employer] History 4 Elective abortions Hx Para 2 Spontaneous abortions 1 Hx # Term Pregnancies 2 Ectopic pregnancies Hx # Pregnancies Multiple births # of living children 2 Past Pregnancies Del. Date Name GA/Weeks Outcome Route Bth Weight Infant Gen Labor Lgth Anesthesia Del Locatn Provider FOB 07/20/20 Andre 37 live - full term vacuum 8# 11oz Male [facility] Myke ellison 08/20/23 Radames Mikhail 38 live - full term 7lbs 8oz Male [facility] Delivery Date: 07/20/20 Last Updated by: Fadumo Zelaya MD IOL pre-eclampsia VAVD triple I, shoulder dystocia Delivery Date: 08/20/23 Last Updated by: Fadumo Zelaya MD secondary to shoulder dystocia with the first HPI 38wk ob *csection Details: AZAEL SULTANA is a 24 year old who presents for routine OB visit. OB Visit ANNA MARIE Calculator Estimated Delivery Date Method Current WG Current Estimate 02/06/25 LMP (Certain) 37w 6d Other Estimates 02/05/25 Ultrasound #1 38w 0d Expected Delivery Route/Plan RLTCS SM Labor [...] unless otherwise noted in visit notes/problem list deta (more content not included)... Normal [facility] Rule out Beta Strep (Grp. B) on 01-18-2025 KEL Group B Beta Streptococcus is not isolated. Normal [facility] Comment on above: Performed By: #### M 100.3400 #### [facility] [address] [place], [place], [address] Laboratory - Chemistry and C hemistry - challengeOrdered By: Fadumo Zelaya on 01-16-2025 Glucose Ql (U) Negative [facility] Laboratory - UrinalysisOrder ed By: Fadumo Zelaya on 01-16-2025 Protein Ql (U) Negative [facility] OB Limited With Biometricson 01-16-2025 OB Limited With Biometrics [facility] Imaging Services [address], [place] [address] OB Limited With Biometrics MR#: [id number] Acct: [id number] Name: AZAEL SULTANA Rep #: [id number] : 2000 F 24 From: Sumit Puckett MD PCP: MING Sagastume Status: REG CLI Study: OB Limited With Biometrics Date of Exam: 01/16 Exam# [id number] Ordering Dr: Marietta Ghosh CNM PROCEDURE: OB [...] Location: [facility] CC: RACHAEL Ghosh; MING Ruiz Pulp Piler: Signed Normal [facility] Trailer Technician Office Visit Reporton 01-16-2025 Trailer Technician Office Visit Report [facility] [address], [address] [place] [address] OFFICE VISIT Date of Service: 01/16/25 MR#: [id number] Acct: [id number] Name: AZAEL SULTANA Rep #: [id number] 21 : 2000 Provider: Dr. Fadumo smith MD Age/Sex: 24/F Location[place] [facility] Status: Signed Intake Vital Signs 12/11/24 15:58 01/13/25 19:19 01/16/25 16:03 01/16/25 16:07 Height 5 ft 3 in 5 ft 3 in 5 ft 3 in 5 ft 3 in Weight: 272 lb 2 oz BMI 48.2 BP 121/83 H Intake Visit Reasons: 37wk ob *csection Chief Complaint: 37 Week OB 3D Artist Required: No Is patient in pain?: No Allergies adhesive tape Allergy (Mild, Verified 01/16/25 16:02) Rash Medications ???Medication ???Instructions ???Recorded ???Confirmed ???Type multivit-min no.71-iron fum 28 300 cap PO DAILY 3 01/16/25 History mg-folate no.1 1 mg-dha 300 mg capsule (PNV-Windsor) ondansetron 4 mg disintegrating 4 mg PO Q4H PRN nausea and 4 01/16/25 Rx tablet vomiting #60 tabs metoclopramide HCl 10 mg tablet 10 mg PO TID nausea #90 tabs 08/2701/16/25 Rx (Reglan) 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 sensor (FreeStyle #1 ea 12/03/24 01/16/25 Rx Dot 3 Sensor device) 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,behavioral consultant, cont #1 ea 12/03/24 01/16/25 Rx (FreeStyle Dot 3 [place]) insulin degludec 100 unit/mL (3 46 unit [...] 2 current occupational status: employed current occupation: [employer] current occupational exposures/hazards: No pets and animals: [...] physical activity do you participate in: none matt/sabianist: None seatbelt use: always do you feel safe at home: Yes additional social history: Patient works at [employer]- Works at [employer] History 4 Elective abortions Hx Para 2 Spontaneous abortions 1 Hx # Term Pregnancies 2 Ectopic pregnancies Hx # Pregnancies Multiple births # of living children 2 Past Pregnancies Del. Date Name GA/Weeks Outcome Route Bth Weight Infant Gen Labor Lgth Anesthesia Del Locatn Provider FOB 07/20/20 Andre 37 live - full term vacuum 8# 11oz Male [facility] Myke ellison 08/20/23 Radames Elizondo 38 live - full term 7lbs 8oz Male [facility] SM Delivery Date: 07/20/20 Last Updated by: [...] list detai (more content not included)... Normal [facility] Screening beta-hemolytic Str eptococcus cultureOrdered By: Fadumo Zelaya on 01-16-2025 Beta-hemolytic Streptococcus culture Group B Beta Streptococcus is not isolated. [facility] (ROM) Rupture Of Membraneson 01-13-2025 ROM Negative Normal Negative [facility] Comment on above: Result Comment: Amni otic fluid not present indicates No Rupture of Membranes at time of specimen collection. Performed By: #### L 205.1000 #### [facility] System [facility] [address] [place], [address] OB Triage Physician Noteon 0 01-13-2025 OB Triage Physician Note [facility] Medical Records Department [address] [place] [address] OB Triage Physician Note 01/13/25 1912 MR#: [id number] Acct: [id number] Name: AZAEL SULTANA Rep #: [id number] : 2000 24 From: Evelin Cardona DO PCP: MING Sagastume Status:DEP CLI Y Location: [email or web address] HPI - General HPI Narrative AZAEL SULTANA, is a 24 y/o @ 36 weeks 4 days who presents to [facility] with possible rupture of membranes. Maternal Data [...] mg-folate no.1 1 mg-dha 300 mg capsule (PNV-Windsor) ondansetron 4 mg disintegrating 4 mg PO Q4H PRN nausea and 4 Unknown Rx tablet vomiting #60 tabs metoclopramide HCl 10 mg tablet 10 mg PO TID nausea #90 tabs 08/27 Unknown Rx (Reglan) 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 sensor (FreeStyle #1 ea 12/03/24 Unknown Rx Dot 3 Sensor device) 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,behavioral consultant, cont #1 ea 12/03/24 Unknown Rx (FreeStyle Dot 3 [place]) insulin degludec 100 unit/mL (3 42 unit [...] 2 current occupational status: employed current occupation: [employer] current occupational exposures/hazards: No pets and animals: [...] physical activity do you participate in: none matt/sabianist: None seatbelt use: always do you feel safe at home: Yes additional social history: Patient works at [employer]- Works at [employer] History 4 Elective abortions Hx Para 2 Spontaneous abortions 1 Hx # Term Pregnancies 2 Ectopic pregnancies Hx # Pregnancies Multiple births # of living children 2 Past Pregnancies Del. Date Name GA/Weeks Outcome Route Bth Weight Infant Gen Labor Lgth Anesthesia Del Locatn Provider FOB 07/20/20 Andre 37 live - full term vacuum 8# 11oz Male [facility] Myke ellison 08/20/23 Radames Elizondo 38 live - full term 7lbs 8oz Male [facility] Delivery Date: 07/20/20 Last Updated by: Fadumo [...] -???-???-???-???-???-?? ?-???- (more content not included)... Normal [facility] AST(SGOT)on 01-08-2025 AST [Catalytic activity/Vol] 12 U/L Normal <=31 [facility] Comment on above: Performed By: #### M 100.3400 #### [facility] [address] [facility] [place], [address] Alanine Aminotransferas (SGP T)on 01-08-2025 ALT [Catalytic activity/Vol] U/L Normal <=34 [facility] Comment on above: Performed By: #### M 100.3400 #### [facility] [address] [place], [address] CBC-Complete Blood Cnt No Di ffon 01-08-2025 Erythrocyte distribution width (RBC) [Ratio] 14.7 % High 11.6-14.6 [facility] Comment on above: Performed By: #### M 100.3400 #### [facility] [address] [place], [address] Hematocrit (Bld) [Volume fraction] 34.3 % Low 37-47 [facility] Comment on above: Performed By: #### M 100.3400 #### [facility] [address] [place], [address] Hemoglobin (Bld) [Mass/Vol] 11.4 g/dL Low 12.0-15.0 [facility] Comment on above: Performed By: #### M 100.3400 #### [facility] [address] [place], [address] MCH (RBC) [Entitic mass] 29.4 pg Normal 27.0-32.0 [facility] Comment on above: Performed By: #### M 100.3400 #### [facility] [address] [place], [address] MCHC (RBC) [Mass/Vol] 33.2 g/dL Normal 32-36 [facility] Comment on above: Performed By: #### M 100.3400 #### [facility] [address] [place], [address] MCV (RBC) [Entitic vol] 88.4 fL Normal 81-99 [facility] Comment on above: Performed By: #### M 100.3400 #### [facility] [address] [place], [address] Platelet mean volume (Bld) [Entitic vol] 10.8 fL Normal 6.2-12.0 [facility] Comment on above: Performed By: #### M 100.3400 #### [facility] [address] [place], [address] Platelets (Bld) [#/Vol] 301 10*3/uL Normal 150-450 [facility] Comment on above: Performed By: #### M 100.3400 #### [facility] [address] [place], [address] RBC (Bld) [#/Vol] 3.88 10*6/uL Low 4.2-5.4 [facility] Comment on above: Performed By: #### M 100.3400 #### [facility] [address] [place], [address] RDW SD 47.6 fl High 35.1-43.9 [facility] Comment on above: Performed By: #### M 100.3400 #### [facility] [address] [place], [address] WBC (Bld) [#/Vol] 11.7 10*3/uL High 4.4-11.0 [facility] Comment on above: Performed By: #### M 100.3400 #### [facility] [address] [place], [place], [id number] (017) Erythrocyte distribution wid th ratioOrdered By: Evelin Porter on 01-08-2025 Erythrocyte distribution width (RBC) [Ratio] 14.7 % High 11.6-14.6 [facility] Erythrocyte distribution wid th standard deviationOrdered By: Evelin Porter on 01-08-2025 Erythrocyte distribution width (RBC) [Ratio] 47.6 fl High 35.1-43.9 [facility] Glomerular filtration rate ( GFR) estimation/1.73 sq m using serum, plasma, or whole bOrdered By: Evelin Porter on 01-08-2025 GFR/1.73 sq M.predicted among non-blacks MDRD (S/P/Bld) [Vol rate/Area] 133 mL/min/{1.73_m2} >60 [facility] Comment on above: mL/min/1.73m2 CKD-EP I Creatinine Equation (2020) Hematocrit Auto (Bld) [Volum e fraction]Ordered By: Evelin Porter on 01-08-2025 Hematocrit (Bld) [Volume fraction] 34.3 % Low 37-47 [facility] Hemoglobin measurementOrdere d By: Evelin Porter on 01-08-2025 Hemoglobin (Bld) [Mass/Vol] 11.4 g/dL Low 12.0-15.0 [facility] Laboratory - Chemistry and C hemistry - challengeOrdered By: Evelin Porter on 01-08-2025 AST [Catalytic activity/Vol] 12 U/L <32 [facility] Laboratory - Chemistry and C hemistry - challengeOrdered By: Anisa Blackmon on 01-08-2025 Glucose Ql (U) Negative [facility] Laboratory - UrinalysisOrder ed By: Anisa Blackmon on 01-08-2025 Protein Ql (U) Trace [facility] MCV (mean corpuscular volume ) determinationOrdered By: Evelin Porter on 01-08-2025 MCV (RBC) [Entitic vol] 88.4 fL 81-99 [facility] Mean corpuscular hemoglobin (MCH) determinationOrdered By: Evelin Porter on 01-08-2025 MCH (RBC) [Entitic mass] 29.4 pg 27.0-32.0 [facility] Mean corpuscular hemoglobin concentration (MCHC) determinationOrdered By: Evelin Porter on 01-08-2025 MCHC (RBC) [Mass/Vol] 33.2 g/dL 32-36 [facility] Mean platelet volume determi nationOrdered By: Evelin Porter on 01-08-2025 Platelet mean volume (Bld) [Entitic vol] 10.8 fL 6.2-12.0 [facility] OB Biophysical Prof W/O NSTo n 01-08-2025 OB Biophysical Prof W/O NST [facility] Imaging Services [address] [place], [place] [id number] OB Biophysical Prof W/O NST MR#: [id number] Acct: [id number] Name: AZAEL SULTANA Rep #: [id number] : 2000 F 24 From: Eduardo noe MD PCP: MING Sagastume Status: REG CLI Study: OB Biophysical Prof W/O NST Date of Exam: 12/30 Exam# [id number] Ordering Dr: Fadumo Zelaya PROCEDURE: OB BIOPHYSICAL [...] biophysical profile score of 8/8 Reading Location: [place] [address] CC: INSPECTING MACHINE ADJUSTERMontezC Bird Ruiz; Dr. Fadumo Zelaya MD Pulp Piler: Signed Normal [facility] OB Triage Physician Noteon 0 01-08-2025 OB Triage Physician Note [facility] Medical Records Department [address] [place] [address] OB Triage Physician Note 01/08/251914 MR#: [id number] Acct: [id number] Name: AZAEL SULTANA Rep #: [id number] : 2000 24 From: Evelin Cardona DO PCP: MING Sagastume Status:DEP CLI Y Location: HPI - General General Date of Admission: 01/08/25 HPI Narrative AZAEL SULTANA, is a 24 y/o @ 35 weeks 6 days who presents to D with headaches. She had a bp [...] mg-folate no.1 1 mg-dha 300 mg capsule (PNV-Windsor) ondansetron 4 mg disintegrating 4 mg PO Q4H PRN nausea and 4 Unknown Rx tablet vomiting #60 tabs metoclopramide HCl 10 mg tablet 10 mg PO TID nausea #90 tabs 08/27 Unknown Rx (Reglan) 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 sensor (FreeStyle #1 ea 12/03/24 Unknown Rx Dot 3 Sensor device) 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,behavioral consultant, cont #1 ea 12/03/24 Unknown Rx (FreeStyle Dot 3 [place]) metformin 1,000 mg tablet 1,000 mg PO [...] 2 current occupational status: employed current occupation: [employer] current occupational exposures/hazards: No pets and animals: [...] physical activity do you participate in: none matt/sabianist: None seatbelt use: always do you feel safe at home: Yes additional social history: Patient works at [employer]- Works at [employer] History 4 Elective abortions Hx Para 2 Spontaneous abortions 1 Hx # Term Pregnancies 2 Ectopic pregnancies Hx # Pregnancies Multiple births # of living children 2 Past Pregnancies Del. Date Name GA/Weeks Outcome Route Bth Weight Gen Labor Lgth Anesthesia Del Locatn Provider FOB 07/20/20 Andre 37 live - full term vacuum 8# 11oz Male [facility] Myke ellison 08/20/23 Radames Elizondo 38 live - full term 7lbs 8oz Male [facility] Delivery Date: 07/20/20 Last Updated by: Fadumo Zelaya MD IOL pre-eclampsia VAVD triple I, shoulder dystocia Delivery Date: 08/20/23 Last Updated by: Fadumo Zelaya MD secondary to shoulder dystocia with the first Visit Details Expected Delivery Route/Plan RLTCS Labor Preferences- CB/BF classes: n0 labor support person: Andre-rpt c section labor intervention preferences: [] pain [...] -???-???-???-???-???-?? ?-???-???-? (more content not included)... Normal [facility] Trailer Technician Office Visit Reporton 01-08-2025 Trailer Technician Office Visit Report [facility] [address], [address] [place] [address] OFFICE VISIT Date of Service: 01/08/25 MR#: [id number] Acct: [id number] Name: AZAEL SULTANA Rep #: [id number] : 2000 Provider: MING cordero Age/Sex: 24/F Location: [facility] Status: Signed Intake Vital Signs 12/11/24 15:58 12/26/24 14:28 01/08/25 13:50 01/08/25 13:57 Height 5 ft 3 in 5 ft 3 in 5 ft 3 in 5 ft 3 in Weight: 271 lb 4 oz BMI 48.0 BP 140/82 H Intake Visit Reasons: 36wk ob Chief Complaint: 36 Week OB 3D Artist Required: No Is patient in pain?: No Allergies adhesive tape Allergy (Mild, Verified 01/08/25 13:48) Rash Medications ???Medication ???Instructions ???Recorded ???Confirmed ???Type multivit-min no.71-iron fum 28 300 cap PO DAILY 3 01/08/25 History mg-folate no.1 1 mg-dha 300 mg capsule (PNV-Windsor) ondansetron 4 mg disintegrating 4 mg PO Q4H PRN nausea and 4 01/08/25 Rx tablet vomiting #60 tabs metoclopramide HCl 10 mg tablet 10 mg PO TID nausea #90 tabs 08/2701/08/25 Rx (Reglan) 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 sensor (FreeStyle #1 ea 12/03/24 01/08/25 Rx Dot 3 Sensor device) 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,behavioral consultant, cont #1 ea 12/03/24 01/08/25 Rx (FreeStyle Dot 3 [place]) metformin 1,000 mg tablet 1,000 mg PO [...] 2 current occupational status: employed current occupation: [employer] current occupational exposures/hazards: No pets and animals: [...] physical activity do you participate in: none matt/sabianist: None seatbelt use: always do you feel safe at home: Yes additional social history: Patient works at [employer]- Works at [employer] History 4 Elective abortions Hx Para 2 Spontaneous abortions 1 Hx # Term Pregnancies 2 Ectopic pregnancies Hx # Pregnancies Multiple births # of living children 2 Past Pregnancies Del. Date Name GA/Weeks Outcome Route Bth Weight Gen Labor Lgth Anesthesia Del Locatn Provider FOB 07/20/20 Andre 37 live - full term vacuum 8# 11oz Male [facility] Myke ellison 08/20/23 Radames Elizondo 38 live - full term 7lbs 8oz Male [facility] Delivery Date: 07/20/20 Last Updated by: Fadumo [...] up unless (more content not included)... Normal [facility] Platelet countOrdered By: Davi Porter on 01-08-2025 Platelets (Bld) [#/Vol] 301 10*3/uL 150-450 [facility] Protein+Creatinine Ratio,Uri neon 01-08-2025 PROT:CRE RATIO 97 mg/g CRE Normal 0-200 [facility] Comment on above: Performed By: #### M 100.3400 #### [facility] [address] [place], [address] Protein (U) [Mass/Vol] 25.5 mg/dL High 0.0-12.0 [facility] Comment on above: Performed By: #### M 100.3400 #### [facility] [address] [place], [address] UR CREAT 263.00 mg/dL High 28.00-217.00 [facility] Comment on above: Performed By: #### M 100.3400 #### [facility] [address] [place], [address] RBC Auto (Bld) [#/Vol]Ordere d By: Evelin Porter on 01-08-2025 RBC (Bld) [#/Vol] 3.88 10*6/uL Low 4.2-5.4 [facility] Random urine creatinine jose cruz urement (mass/volume)Ordered By: Evelin Porter on 01-08-2025 Creatinine Unsp time (U) [Mass/Vol] 263.00 mg/dL High 28.00-217.00 [facility] Serum Creatinine AND GFRon 0 01-08-2025 Creatinine [Mass/Vol] 0.52 mg/dL Low 0.70-1.20 [facility] Comment on above: Performed By: #### M 100.3400 #### [facility] [address] [place], [address] ECRCL 212.26 ml/min Normal 50-250 [facility] Comment on above: Performed By: #### M 100.3400 #### [facility] [address] [place], [address] GFR/1.73 sq M.predicted among non-blacks MDRD (S/P/Bld) [Vol rate/Area] 133 mL/min/{1.73_m2} Normal >60 [facility] Comment on above: Result Comment: mL/m in/1.73m2 CKD-EPI Creatinine Equation (2020) Performed By: #### M 100.3400 #### [facility] [address] [place], [place], [address] Serum creatinine measurement (mass/volume)Ordered By: Evelin Porter on 01-08-2025 Creatinine [Mass/Vol] 0.52 mg/dL Low 0.70-1.20 [facility] Serum or plasma alanine purdy otransferase (ALT) measurementOrdered By: Evelin Porter on 01-08-2025 ALT [Catalytic activity/Vol] U/L <35 [facility] Serum or plasma uric acid me asurement (mass/volume)Ordered By: Evelin Porter on 01-08-2025 Urate [Mass/Vol] 4.9 mg/dL 2.6-6.0 [facility] Comment on above: The drugs N-Acetylcy steine and Metamizole may falsely depress this assay. Uric Acidon 01-08-2025 URIC 4.9 mg/dL Normal 2.6-6.0 [facility] Comment on above: Result Comment: The drugs N-Acetylcysteine and Metamizole may falsely depress this assay. Performed By: #### M 100.3400 #### [facility] [address] [place], [place], [address] Urine protein measurement (m ass/volume)Ordered By: Evelin Porter on 01-08-2025 Protein (U) [Mass/Vol] 25.5 mg/dL High 0.0-12.0 [facility] Urine protein/creatinine mas s ratioOrdered By: Evelin Porter on 01-08-2025 Protein/Creatinine (U) [Mass ratio] 97 mg/g CRE 0-200 [facility] White blood cell (WBC) count Ordered By: Evelin Porter on 01-08-2025 WBC (Bld) [#/Vol] 11.7 10*3/uL High 4.4-11.0 [facility] OB Biophysical Prof W/O NSTo n 01-01-2025 OB Biophysical Prof W/O NST [facility] Imaging Services [address] [place], [place] [address] OB Biophysical Prof W/O NST MR#: [id number] Acct: [id number] Name: AZAEL SULTANA Rep #: [id number] : 2000 F 24 From: Franki Vanessa DO PCP: MING Sagastume Status: [facility] CLI Study: OB Biophysical Prof W/O NST Date of Exam: 09/23 Exam# [id number] Ordering Dr: Fadumo Zelaya PROCEDURE: OB BIOPHYSICAL [...] IMPRESSION: Biophysical profile score: 8/8 Reading Location: [facility] CC: MING Ruiz; Dr. Fadumo Zelaya MD Pulp Piler: Signed Normal [facility] Absolute lymphocyte countOrd ered By: Fadumo Zelaya on 12-26-2024 Lymphocytes Auto (Unsp spec) [#/Vol] 2.01 10*3/uL 0.83-4.51 [facility] Absolute neutrophil countOrd ered By: Fadumo Zelaya on 12-26-2024 Neutrophils (Bld) [#/Vol] 10.1 10*3/uL High 2.0-7.7 [facility] Anion gap in Serum or Plasma Ordered By: Fadumo Zelaya on 12-26-2024 Anion gap [Moles/Vol] 12 mmol/L 5-15 [facility] Automated lymphocyte count a s percentage of total leukocytesOrdered By: Fadumo Zelaya on 12-26-2024 Lymphocytes/100 WBC Auto (Unsp spec) 15.3 % Low 19-41 [facility] BUN/creatinine ratioOrdered By: Fadumo Zelaya on 12-26-2024 Urea nitrogen/Creatinine [Mass ratio] 14.4 mg/mg 10-20 [facility] Basophil percentageOrdered B y: Fadumo Zelaya on 12-26-2024 Basophils/100 WBC (Bld) 0.5 % 0-1 [facility] Bilirubin, totalOrdered By: Fadumo Zelaya on 12-26-2024 Bilirubin [Mass/Vol] 0.18 mg/dL 0.00-1.30 [facility] CBC W/Diff, Automatedon 12-01 Absolute Lymph 2.01 X10 3/uL Normal 0.83-4.51 [facility] Comment on above: Performed By: #### L 100.0100, L500.4050 #### [facility] [address] [place], [place], [id number] Absolute Neut 10.1 X10 3/uL High 2.0-7.7 [facility] Comment on above: Performed By: #### L 100.0100, L500.4050 #### [facility] [address] [place], [address] Basophils/100 WBC (Bld) 0.5 % Normal 0-1 [facility] Comment on above: Performed By: #### L 100.0100, L500.4050 #### [facility] [address] [place], [address] Eosinophils/100 WBC (Bld) 0.6 % Normal 0-5 [facility] Comment on above: Performed By: #### L 100.0100, L500.4050 #### [facility] [address] [place], [address] Erythrocyte distribution width (RBC) [Ratio] 14.6 % Normal 11.6-14.6 [facility] Comment on above: Performed By: #### L 100.0100, L500.4050 #### [facility] [address] [place], [address] Hematocrit (Bld) [Volume fraction] 37.3 % Normal 37-47 [facility] Comment on above: Performed By: #### L 100.0100, L500.4050 #### [facility] [address] [place], [address] Hemoglobin (Bld) [Mass/Vol] 12.3 g/dL Normal 12.0-15.0 [facility] Comment on above: Performed By: #### L 100.0100, L500.4050 #### [facility] [address] [place], [address] IG% 1.600 High 0.0-0.9 [facility] Comment on above: Result Comment: IG% - Immature Granulocytes (promyelocytes, myelocytes and metamyelocytes) > 1% indicates that a LEFT SHIFT is Present. Performed By: #### L 100.0100, L500.4050 #### [facility] [place] [facility] [address] [place], [address] Lymphocytes/100 WBC (Bld) 15.3 % Low 19-41 [facility] Comment on above: Performed By: #### L 100.0100, L500.4050 #### [facility] [address] [place], [address] MCH (RBC) [Entitic mass] 29.5 pg Normal 27.0-32.0 [facility] Comment on above: Performed By: #### L 100.0100, L500.4050 #### [facility] [address] [place], [address] MCHC (RBC) [Mass/Vol] 33.0 g/dL Normal 32-36 [facility] Comment on above: Performed By: #### L 100.0100, L500.4050 #### [facility] [address] [place], [address] MCV (RBC) [Entitic vol] 89.4 fL Normal 81-99 [facility] Comment on above: Performed By: #### L 100.0100, L500.4050 #### [facility] [address] [place], [address] Monocytes/100 WBC (Bld) 4.8 % Normal 0-10 [facility] Comment on above: Performed By: #### L 100.0100, L500.4050 #### [facility] [address] [place], [address] Neutrophils/100 WBC (Bld) 77.2 % High 47-70 [facility] Comment on above: Performed By: #### L 100.0100, L500.4050 #### [facility] [address] [place], [address] Nucleated RBC (Bld) [#/Vol] 0 10*3/uL Normal 0-5 [facility] Comment on above: Performed By: #### L 100.0100, L500.4050 #### [facility] [address] [place], [address] Platelet mean volume (Bld) [Entitic vol] 10.4 fL Normal 6.2-12.0 [facility] Comment on above: Performed By: #### L 100.0100, L500.4050 #### [facility] [address] [place], [address] Platelets (Bld) [#/Vol] 340 10*3/uL Normal 150-450 [facility] Comment on above: Performed By: #### L 100.0100, L500.4050 #### [facility] [address] [place], [address] RBC (Bld) [#/Vol] 4.17 10*6/uL Low 4.2-5.4 [facility] Comment on above: Performed By: #### L 100.0100, L500.4050 #### [facility] [address] [place], [address] RDW SD 47.1 fl High 35.1-43.9 [facility] Comment on above: Performed By: #### L 100.0100, L500.4050 #### [facility] [address] [place], [address] WBC (Bld) [#/Vol] 13.1 10*3/uL High 4.4-11.0 [facility] Comment on above: Performed By: #### L 100.0100, L500.4050 #### [facility] [address] [place], [address] Carbon dioxide, total [Moles /volume] in Central venous bloodOrdered By: Fadumo Zelaya on 12-26-2024 CO2 [Moles/Vol] 21.8 mmol/L 21.0-32.0 [facility] Chloride assayOrdered By: Ene Zelaya on 12-26-2024 Chloride [Moles/Vol] 100 mmol/L 98-108 [facility] Comprehensive Metabolic Prof ilon 12-26-2024 Albumin [Mass/Vol] 3.7 g/dL Normal 3.5-5.0 [facility] Comment on above: Performed By: #### L 100.0100, L500.4050 #### [facility] [address] [place], [address] Albumin/Globulin [Mass ratio] 1.2 {ratio} Normal 0.9-2.4 [facility] Comment on above: Performed By: #### L 100.0100, L500.4050 #### [facility] [address] [place], [address] ALK PHOS 124 U/L High 35-104 [facility] Comment on above: Performed By: #### L 100.0100, L500.4050 #### [facility] [address] [place], [address] ALT [Catalytic activity/Vol] U/L Normal <=34 [facility] Comment on above: Performed By: #### L 100.0100, L500.4050 #### [facility] [address] [place], [address] AST [Catalytic activity/Vol] 12 U/L Normal <=31 [facility] Comment on above: Performed By: #### L 100.0100, L500.4050 #### [facility] [address] [place], [address] Bilirubin [Mass/Vol] 0.18 mg/dL Normal 0.00-1.30 [facility] Comment on above: Performed By: #### L 100.0100, L500.4050 #### [facility] [address] [place], [address] BUN/CRE 14.4 RATIO Normal 10-20 [facility] Comment on above: Performed By: #### L 100.0100, L500.4050 #### [facility] [address] [place], [address] Calcium [Mass/Vol] 9.6 mg/dL Normal 7.6-11.0 [facility] Comment on above: Performed By: #### L 100.0100, L500.4050 #### [facility] [address] [place], [address] Chloride [Moles/Vol] 100 mmol/L Normal 98-108 [facility] Comment on above: Performed By: #### L 100.0100, L500.4050 #### [facility] [address] [place], [address] CO2 [Moles/Vol] 21.8 mmol/L Normal 21.0-32.0 [facility] Comment on above: Performed By: #### L 100.0100, L500.4050 #### [facility] [address] [place], [address] Creatinine [Mass/Vol] 0.49 mg/dL Low 0.70-1.20 [facility] Comment on above: Performed By: #### L 100.0100, L500.4050 #### [facility] [address] [place], [address] GAP 12 Normal 5-15 [facility] Comment on above: Performed By: #### L 100.0100, L500.4050 #### [facility] [address] [place], [address] GFR/1.73 sq M.predicted among non-blacks MDRD (S/P/Bld) [Vol rate/Area] 135 mL/min/{1.73_m2} Normal >60 [facility] Comment on above: Result Comment: mL/m in/1.73m2 CKD-EPI Creatinine Equation (2020) Performed By: #### L 100.0100, L500.4050 #### [facility] [address] [place], [address] Globulin (S) [Mass/Vol] 3.1 g/dL Normal 2.2-4.2 [facility] Comment on above: Performed By: #### L 100.0100, L500.4050 #### [facility] [address] [place], [address] Glucose [Mass/Vol] 109 mg/dL High 70-99 [facility] Comment on above: Performed By: #### L 100.0100, L500.4050 #### [facility] [address] [place], [address] Potassium [Moles/Vol] 4.0 mmol/L Normal 3.3-5.1 [facility] Comment on above: Performed By: #### L 100.0100, L500.4050 #### [facility] [address] [place], [address] Sodium [Moles/Vol] 133 mmol/L Normal 133-145 [facility] Comment on above: Performed By: #### L 100.0100, L500.4050 #### [facility] [address] [place], [address] T PROT 6.8 g/dL Normal 5.9-8.4 [facility] Comment on above: Performed By: #### L 100.0100, L500.4050 #### [facility] [address] [place], [address] Urea nitrogen [Mass/Vol] 7 mg/dL Normal 4-19 [facility] Comment on above: Performed By: #### L 100.0100, L500.4050 #### [facility] [address] [place], [address] Eosinophil percentageOrdered By: Fadumo Zelaya on 12-26-2024 Eosinophils/100 WBC (Bld) 0.6 % 0-5 [facility] Erythrocyte distribution wid th ratioOrdered By: Fadumo Zelaya on 12-26-2024 Erythrocyte distribution width (RBC) [Ratio] 14.6 % 11.6-14.6 [facility] Erythrocyte distribution wid th standard deviationOrdered By: Fadumo Zelaya on 12-26-2024 Erythrocyte distribution width (RBC) [Ratio] 47.1 fl High 35.1-43.9 [facility] Glomerular filtration rate ( GFR) estimation/1.73 sq m using serum, plasma, or whole bOrdered By: Fadumo Zelaya on 12-26-2024 GFR/1.73 sq M.predicted among non-blacks MDRD (S/P/Bld) [Vol rate/Area] 135 mL/min/{1.73_m2} >60 [facility] Comment on above: mL/min/1.73m2 CKD-EP I Creatinine Equation (2020) Hematocrit Auto (Bld) [Volum e fraction]Ordered By: Fadumo Zelaya on 12-26-2024 Hematocrit (Bld) [Volume fraction] 37.3 % 37-47 [facility] Hemoglobin measurementOrdere d By: Fadumo Zelaya on 12-26-2024 Hemoglobin (Bld) [Mass/Vol] 12.3 g/dL 12.0-15.0 [facility] Immature granulocytes/100 WB C Auto (Bld)Ordered By: Fadumo Zelaya on 12-26-2024 Immature granulocytes/100 WBC (Bld) 1.600 % High 0.0-0.9 [facility] Comment on above: IG% - Immature Granu locytes (promyelocytes, myelocytes and metamyelocytes) > 1% indicates that a LEFT SHIFT is Present. Laboratory - Chemistry and C hemistry - challengeOrdered By: Fadumo Zelaya on 12-26-2024 AST [Catalytic activity/Vol] 12 U/L <32 [facility] - Chemistry and C hemistry - challengeOrdered By: Evelin Porter on 12-26-2024 Bilirubin Ql (U) Negative [facility] Glucose Ql (U) Negative [facility] Ketones Ql (U) Negative [facility] pH (U) 5.0 [pH] [facility] Specific gravity (U) [Rel density] 1.025 [facility] Urobilinogen (U) [Mass/Vol] 0.1747667 mg/dL [facility] - Hematology and Cell countsOrdered By: Evelin Porter on 12-26-2024 Hemoglobin Ql (U) Negative [facility] - Specimen inform ationOrdered By: Evelin Porter on 12-26-2024 Clarity (U) Cloudy [facility] Color (U) STRAW [facility] - UrinalysisOrder ed By: Evelin Porter on 12-26-2024 Nitrite Ql (U) Negative [facility] Protein Ql (U) Trace [facility] MCV (mean corpuscular volume ) determinationOrdered By: Fadumo Zelaya on 12-26-2024 MCV (RBC) [Entitic vol] 89.4 fL 81-99 [facility] Mean corpuscular hemoglobin (MCH) determinationOrdered By: Fadumo Zelaya on 12-26-2024 MCH (RBC) [Entitic mass] 29.5 pg 27.0-32.0 [facility] Mean corpuscular hemoglobin concentration (MCHC) determinationOrdered By: Fdaumo Zelaya on 12-26-2024 MCHC (RBC) [Mass/Vol] 33.0 g/dL 32-36 [facility] Mean platelet volume determi nationOrdered By: Fadumo Zelaya on 12-26-2024 Platelet mean volume (Bld) [Entitic vol] 10.4 fL 6.2-12.0 [facility] Monocyte percentageOrdered B y: Fadumo Zelaya on 12-26-2024 Monocytes/100 WBC (Bld) 4.8 % 0-10 [facility] Neutrophil percentageOrdered By: Fdaumo Zelaya on 12-26-2024 Neutrophils/100 WBC (Bld) 77.2 % High 47-70 [facility] No Panel InformationOrdered By: Evelin Porter on 12-26-2024 Urine Leukocytes Negatve [facility] Nucleated red blood cell per centageOrdered By: Fadumo Zelaya on 12-26-2024 Nucleated RBC/100 WBC (Bld) [Ratio] 0 % 0-5 [facility] Trailer Technician Office Visit Reporton 12-26-2024 Trailer Technician Office Visit Report [facility] [address], [address] [place] [address] OFFICE VISIT Date of Service: 12/26/24 MR#: [id number] Acct: [id number] Name: AZAEL SULTANA Rep #: [id number] : 2000 Provider: Dr. Fadumo smith MD Age/Sex: 24/F [place] [facility] [place]: Signed Intake Vital Signs 07/03/24 13:01 12/16/24 10:39 12/26/24 14:26 12/26/24 14:28 Height 5 ft 3 in 5 ft 3 in 5 ft 3 in 5 ft 3 in Weight: 264 lb 6 oz BMI 46.8 BP 138/82 H Intake Visit Reasons: 34 WK OB 3D Artist Required: No Is patient in pain?: No Allergies adhesive tape Allergy (Mild, Verified 12/26/24 14:26) Rash Medications ???Medication ???Instructions ???Recorded ???Confirmed ???Type multivit-min no.71-iron fum 28 300 cap PO DAILY 3 12/26/24 History mg-folate no.1 1 mg-dha 300 mg capsule (PNV-Windsor) ondansetron 4 mg disintegrating 4 mg PO Q4H PRN nausea and 4 12/26/24 Rx tablet vomiting #60 tabs metoclopramide HCl 10 mg tablet 10 mg PO TID nausea #90 tabs 08/2712/26/24 Rx (Reglan) 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 sensor (FreeStyle #1 ea 12/03/24 12/26/24 Rx Dot 3 Sensor device) 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,behavioral consultant, cont #1 ea 12/03/24 12/26/24 Rx (FreeStyle Dot 3 [place]) metformin 1,000 mg tablet 1,000 mg PO [...] 2 current occupational status: employed current occupation: [employer] current occupational exposures/hazards: No pets and animals: [...] physical activity do you participate in: none matt/sabianist: None seatbelt use: always do you feel safe at home: Yes additional social history: Patient works at [employer]- Works at [employer] History 4 Elective abortions Hx Para 2 Spontaneous abortions 1 Hx # Term Pregnancies 2 Ectopic pregnancies Hx # Pregnancies Multiple births # of living children 2 Past Pregnancies Del. Date Name GA/Weeks Outcome Route Bth Weight Infant Gen Labor Lgth Anesthesia Del Locatn Provider FOB 07/20/20 Andre 37 live - full term vacuum 8# 11oz Male [facility] Myke ellison 08/20/23 Radames Elizondo 38 live - full term 7lbs 8oz Male [facility] SM Delivery Date: 07/20/20 Last Updated by: [...] Urine Pr (more content not included)... Normal [facility] Platelet countOrdered By: Ene Zelaya on 12-26-2024 Platelets (Bld) [#/Vol] 340 10*3/uL 150-450 [facility] Potassium measurement (mass/ volume)Ordered By: Fadumo Zelaya on 12-26-2024 Potassium (Unsp spec) [Mass/Vol] 4.0 mmol/L 3.3-5.1 [facility] Protein+Creatinine Ratio,Uri neon 12-26-2024 PROT:CRE RATIO 182 mg/g CRE Normal 0-200 [facility] Comment on above: Performed By: #### L 501.0900 #### [facility] [address] [place], [address] Protein (U) [Mass/Vol] 28.8 mg/dL High 0.0-12.0 [facility] Comment on above: Performed By: #### L 501.0900 #### [facility] [address] [place], [address] UR CREAT 158.00 mg/dL Normal 28.00-217.00 [facility] Comment on above: Performed By: #### L 501.0900 #### [facility] [address] [place], [address] RBC Auto (Bld) [#/Vol]Ordere d By: Fadumo Zelaya on 12-26-2024 RBC (Bld) [#/Vol] 4.17 10*6/uL Low 4.2-5.4 [facility] Random urine creatinine jose cruz urement (mass/volume)Ordered By: Fadumo Zelaya on 12-26-2024 Creatinine Unsp time (U) [Mass/Vol] 158.00 mg/dL 28.00-217.00 [facility] Serum creatinine measurement (mass/volume)Ordered By: Fadumo Zelaya on 12-26-2024 Creatinine [Mass/Vol] 0.49 mg/dL Low 0.70-1.20 [facility] Serum globulin measurementOr dered By: Fadumo Zelaya on 12-26-2024 Globulin (S) [Mass/Vol] 3.1 g/dL 2.2-4.2 [facility] Serum glucose measurement (m ass/volume)Ordered By: Fadumo Zelaya on 12-26-2024 Glucose [Mass/Vol] 109 mg/dL High 70-99 [facility] Serum or plasma alanine purdy otransferase (ALT) measurementOrdered By: Fadumo Zelaya on 12-26-2024 ALT [Catalytic activity/Vol] U/L <35 [facility] Serum or plasma albumin jose cruz urement (mass/volume)Ordered By: Fadumo Zelaya on 12-26-2024 Albumin [Mass/Vol] 3.7 g/dL 3.5-5.0 [facility] Serum or plasma albumin/glob ulin mass ratioOrdered By: Fadumo Zelaya on 12-26-2024 Albumin/Globulin [Mass ratio] 1.2 {ratio} 0.9-2.4 [facility] Serum or plasma alkaline silvio sphatase measurementOrdered By: Fadumo Zelaya on 12-26-2024 ALP [Catalytic activity/Vol] 124 U/L High 35-104 [facility] Serum or plasma calcium jose cruz urement (mass/volume)Ordered By: Fadumo Zelaya on 12-26-2024 Calcium [Mass/Vol] 9.6 mg/dL 7.6-11.0 [facility] Serum or plasma urea nitroge n measurement (mass/volume)Ordered By: Fadumo Zelaya on 12-26-2024 Urea nitrogen [Mass/Vol] 7 mg/dL 4-19 [facility] Sodium levelOrdered By: Reddy Zelaya on 12-26-2024 Sodium [Moles/Vol] 133 mmol/L 133-145 [facility] Total proteinOrdered By: Eb Zelaya on 12-26-2024 Protein [Mass/Vol] 6.8 g/dL 5.9-8.4 [facility] Urine protein measurement (m ass/volume)Ordered By: Fadumo Zelaya on 12-26-2024 Protein (U) [Mass/Vol] 28.8 mg/dL High 0.0-12.0 [facility] Urine protein/creatinine mas s ratioOrdered By: Fadumo Zelaya on 12-26-2024 Protein/Creatinine (U) [Mass ratio] 182 mg/g CRE 0-200 [facility] White blood cell (WBC) count Ordered By: Fadumo Zelaya on 12-26-2024 WBC (Bld) [#/Vol] 13.1 10*3/uL High 4.4-11.0 [facility] OB Limited With Biometricson 12-17-2024 OB Limited With Biometrics [facility] Imaging Services [address] [place], [place] [id number] OB Limited With Biometrics MR#: [id number] Acct: [id number] Name: AZAEL SULTANA Rep #: [id number] : 2000 F 24 From: Eduardo noe MD PCP: MING Sagastume Status: REG CLI Study: OB Limited With Biometrics Date of Exam: 12/17 Exam# [id number] Ordering Dr: Marietta Ghosh CNM PROCEDURE: OB [...] 33 weeks and 3 days. Reading Location: [place] [address] CC: RACHAEL Ghosh; INSPECTING MACHINE ADJUSTERRaymnudo Ruiz Pulp Piler: Signed Normal [facility] Endocrinology Visit Reporton 12-16-2024 Endocrinology Visit Report [facility] [address] [place] [address] [address] [place] [address] OFFICE VISIT Date of Service: 12/16/24 MR#: [id number] Acct: [id number] Name: AZAEL SULTANA Rep #: [id number] : 2000 Provider: Shaneka Dooley Age/Sex: 24/F Location: [facility] [place] Status: Signed Intake Vital Signs 11/11/24 15:03 12/11/24 15:58 12/16/24 10:39 Height 5 ft 3 in 5 ft 3 in 5 ft 3 in Weight: 267 lb BMI 47.2 BP 120/77 Blood Pressure Location Lt brachial Position Sitting Pulse 88 Pulse Source Monitor Pulse Oximetry (%) 97 Oxygen Delivery Method room air Intake Visit Reasons: Gestational Diabetes Chief Complaint: GDM 3D Artist Required: No Accompanied by: Self Is patient in pain?: No Allergies adhesive tape Allergy (Mild, Verified 12/16/24 10:40) Rash Medications ???Medication ???Instructions ???Recorded ???Confirmed ???Type multivit-min no.71-iron fum 28 300 cap PO DAILY 3 12/16/24 History mg-folate no.1 1 mg-dha 300 mg capsule (PNV-Windsor) ondansetron 4 mg disintegrating 4 mg PO Q4H PRN nausea and 4 12/16/24 Rx tablet vomiting #60 tabs metoclopramide HCl 10 mg tablet 10 mg PO TID nausea #90 tabs 08/2712/16/24 Rx (Reglan) 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 sensor (FreeStyle #1 ea 12/03/24 12/16/24 Rx Dot 3 Sensor device) 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,behavioral consultant, cont #1 ea 12/03/24 12/16/24 Rx (FreeStyle Dot 3 [place]) metformin 1,000 mg tablet 1,000 mg PO [...] 2 current occupational status: employed current occupation: [employer] current occupational exposures/hazards: No pets and [...] physical activity do you participate in: none matt/sabianist: None seatbelt use: always do you feel safe at home: Yes additional social history: Patient works at [employer]- Works at [employer] Female Reproductive History Menstrual Ab spontaneous: 1 [...] Cardio Rate (more content not included)... Normal [facility] - Chemistry and C hemistry - challengeOrdered By: Anisa Blackmon on 12-11-2024 Glucose Ql (U) Negative [facility] - UrinalysisOrder ed By: Anisa Blackmno on 12-11-2024 Protein Ql (U) Negative [facility] Trailer Technician Office Visit Reporton 12-11-2024 Trailer Technician Office Visit Report [address], [address] [place] [address] OFFICE VISIT Date of Service: 12/11/24 MR#: [id number] Acct: [id number] Name: AZAEL SULTANA Rep #: [id number] : 2000 Provider: MING cordero Age/Sex: 24/F [place] [facility] Status: Signed with Addenda ADDENDUM by Chelsie Garcia on 12/11/24 at 1620 Office Procedure Documentation entered by Chelsie Garcia 12/11/24 16:20: Immunizations Adacel(Tdap Adolesn/Adult)(PF) 2 Lf-(2.5-5-3-5)-5 Lf/0.5 mL IM syringe Performing Provider: Anisa Blackmon INSPECTING MACHINE ADJUSTER, MING Performing Location: [facility] Administered by: Chelsie Garcia on 12/11/24 16:19 Dose Route Admin Location Dispensed Lot Number Expiration Date NDC Man ufacturer 0.5 mL IM Left Deltoid 0.5 mL [id number] 11/29/25 97600-912-53 SANOFI-P ASTEUR VIS Given Date VIS Provided [...] WK OB Chief Complaint: 32 Week OB 3D Artist Required: No Is patient in pain?: No Allergies adhesive tape Allergy (Mild, Verified 12/11/24 15:49) Rash Medications ???Medication ???Instructions ???Recorded ???Confirmed ???Type multivit-min no.71-iron fum 28 300 cap PO DAILY 3 12/11/24 History mg-folate no.1 1 mg-dha 300 mg capsule (PNV-Windsor) ondansetron 4 mg disintegrating 4 mg PO Q4H PRN nausea and 4 12/11/24 Rx tablet vomiting #60 tabs metoclopramide HCl 10 mg tablet 10 mg PO TID nausea #90 tabs 08/2712/11/24 Rx (Reglan) flash glucose scanning reader #1 ea 11/12/24 12/11/24 Rx (FreeStyle Dot 2 [place]) flash glucose sensor (FreeStyle #1 ea 11/12/24 12/11/24 Rx Dot 2 Sensor kit) 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 sensor (FreeStyle #1 ea 12/03/24 12/11/24 Rx Dot 3 Sensor device) 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,behavioral consultant, cont #1 ea 12/03/24 12/11/24 Rx (FreeStyle Dot 3 [place]) Last Menstrual Period: 05/02/24 Zika: Zika virus screening: Negative : No PFSH PFSH Medical History Seasonal allergies Hx of chlamydia infection Adopted Chlamydia infection affecting Anxiety Surgical History History of dental surgery Family History Mother Diabetes Grandfather Diabetes Social History adopted: Yes (limited family medical history known) household members: spouse, family and children number of children: 2 current occupational status: employed current occupation: [employer] current occupational exposures/hazards: No pets and animals: [...] physical activity do you participate in: none matt/sabianist: None seatbelt use: always do you feel safe at home: Yes additional social history: Patient works at [employer]- Works at [employer] History 4 Elective abortions Hx Para 2 Spontaneous abortions 1 Hx # Term Pregnancies 2 Ectopic pregnancies Hx # Pregnancies Multiple births # of living children 2 Past Pregnancies Del. Date Name GA/Weeks Outcome Route Bth Weight Gen Labor Lgth Anesthesia Del Locatn Provider FOB 07/20/20 Andre 37 live - full term vacuum 8# 11oz Male [facility] Myke ellison 08/20/23 Radameslizz Nayakon 38 live - full term 7lbs 8oz Male [facility] SM Delivery Date: 07/20/20 Last Updated by: [...] 6d Other (more content not included)... Normal [facility] Absolute lymphocyte countOrd ered By: Marietta Ghosh on 11-11-2024 Lymphocytes Auto (Unsp spec) [#/Vol] 1.79 10*3/uL 0.83-4.51 [facility] Absolute neutrophil countOrd ered By: Marietta Ghosh on 11-11-2024 Neutrophils (Bld) [#/Vol] 8.6 10*3/uL High 2.0-7.7 [facility] Automated lymphocyte count a s percentage of total leukocytesOrdered By: Marietta Ghosh on 11-11-2024 Lymphocytes/100 WBC Auto (Unsp spec) 16.0 % Low 19-41 [facility] Basophil percentageOrdered B y: Marietta Ghosh on 11-11-2024 Basophils/100 WBC (Bld) 0.5 % 0-1 [facility] CBC W/Diff, Automatedon 10-30 Absolute Lymph 1.79 X10 3/uL Normal 0.83-4.51 [facility] Comment on above: Performed By: #### L 205.1000 #### [facility] [address] [place], [address] Absolute Neut 8.6 X10 3/uL High 2.0-7.7 [facility] Comment on above: Performed By: #### L 205.1000 #### [facility] [address] [place], [address] Basophils/100 WBC (Bld) 0.5 % Normal 0-1 [facility] Comment on above: Performed By: #### L 205.1000 #### [facility] [address] [place], [address] Eosinophils/100 WBC (Bld) 1.0 % Normal 0-5 [facility] Comment on above: Performed By: #### L 205.1000 #### [facility] [address] [place], [address] Erythrocyte distribution width (RBC) [Ratio] 14.0 % Normal 11.6-14.6 [facility] Comment on above: Performed By: #### L 205.1000 #### [facility] [address] [place], [address] Hematocrit (Bld) [Volume fraction] 35.7 % Low 37-47 [facility] Comment on above: Performed By: #### L 205.1000 #### [facility] [address] [place], [address] Hemoglobin (Bld) [Mass/Vol] 11.8 g/dL Low 12.0-15.0 [facility] Comment on above: Performed By: #### L 205.1000 #### [facility] [address] [place], [address] IG% 2.100 High 0.0-0.9 [facility] Comment on above: Result Comment: IG% - Immature Granulocytes (promyelocytes, myelocytes and metamyelocytes) > 1% indicates that a LEFT SHIFT is Present. Performed By: #### L 205.1000 #### [facility] [address] [place], [address] Lymphocytes/100 WBC (Bld) 16.0 % Low 19-41 [facility] Comment on above: Performed By: #### L 205.1000 #### [facility] [address] [place], [address] MCH (RBC) [Entitic mass] 29.6 pg Normal 27.0-32.0 [facility] Comment on above: Performed By: #### L 205.1000 #### [facility] [address] [place], [address] MCHC (RBC) [Mass/Vol] 33.1 g/dL Normal 32-36 [facility] Comment on above: Performed By: #### L 205.1000 #### [facility] [address] [place], [address] MCV (RBC) [Entitic vol] 89.7 fL Normal 81-99 [facility] Comment on above: Performed By: #### L 205.1000 #### [facility] [address] [place], [address] Monocytes/100 WBC (Bld) 3.8 % Normal 0-10 [facility] Comment on above: Performed By: #### L 205.1000 #### [facility] [address] [place], [address] Neutrophils/100 WBC (Bld) 76.6 % High 47-70 [facility] Comment on above: Performed By: #### L 205.1000 #### [facility] [address] [place], [address] Nucleated RBC (Bld) [#/Vol] 0 10*3/uL Normal 0-5 [facility] Comment on above: Performed By: #### L 205.1000 #### [facility] [address] [place], [address] Platelet mean volume (Bld) [Entitic vol] 10.7 fL Normal 6.2-12.0 [facility] Comment on above: Performed By: #### L 205.1000 #### [facility] [address] [place], [address] Platelets (Bld) [#/Vol] 347 10*3/uL Normal 150-450 [facility] Comment on above: Performed By: #### L 205.1000 #### [facility] [address] [place], [address] RBC (Bld) [#/Vol] 3.98 10*6/uL Low 4.2-5.4 [facility] Comment on above: Performed By: #### L 205.1000 #### [facility] [address] [place], [address] RDW SD 45.7 fl High 35.1-43.9 [facility] Comment on above: Performed By: #### L 205.1000 #### [facility] [address] [place], [address] WBC (Bld) [#/Vol] 11.2 10*3/uL High 4.4-11.0 [facility] Comment on above: Performed By: #### L 205.1000 #### [facility] [address] [place], [address] Eosinophil percentageOrdered By: Marietta Ghosh on 11-11-2024 Eosinophils/100 WBC (Bld) 1.0 % 0-5 [facility] Erythrocyte distribution wid th ratioOrdered By: Marietta Ghosh on 11-11-2024 Erythrocyte distribution width (RBC) [Ratio] 14.0 % 11.6-14.6 [facility] Erythrocyte distribution wid th standard deviationOrdered By: Marietta Ghosh on 11-11-2024 Erythrocyte distribution width (RBC) [Ratio] 45.7 fl High 35.1-43.9 [facility] Glucose Challenge Gest 1H 50 qi 11-11-2024 GLU GEST 50g 1H 194 mg/dL High 70-140 [facility] Comment on above: Performed By: #### L 205.1000 #### [facility] [address] [facility] [place], [place], [address] Glucose measurement at 2 marvin rs post-dose gestational glucose tolerance testOrdered By: Marietta Ghosh on 11-11-2024 Glucose [Mass/Vol] 194 mg/dL High 70-140 [facility] HIVon 11-11-2024 HIV Non-Reactive Normal Nonreactive [facility] Comment on above: Result Comment: Non- Reactive Reactive Repeatedly reactive samples must be confirmed according to CDC recommended confirmatory algorithms. The subresults for either HIVAG or AHIV can be used as an aid in the selection of the confirmation algorithm for reactive samples. Send out specimens with Reactive results to [facility] for confirmation. Order the HIV antibody detection and differentiation: #[id number] Performed By: #### L 205.1000 #### [facility] [address] [facility] [place], [place], [address] Hematocrit Auto (Bld) [Volum e fraction]Ordered By: Marietta Ghosh on 11-11-2024 Hematocrit (Bld) [Volume fraction] 35.7 % Low 37-47 [facility] Hemoglobin measurementOrdere d By: Marietta Ghosh on 11-11-2024 Hemoglobin (Bld) [Mass/Vol] 11.8 g/dL Low 12.0-15.0 [facility] Immature granulocytes/100 WB C Auto (Bld)Ordered By: Marietta Ghosh on 11-11-2024 Immature granulocytes/100 WBC (Bld) 2.100 % High 0.0-0.9 [facility] Comment on above: IG% - Immature Granu locytes (promyelocytes, myelocytes and metamyelocytes) > 1% indicates that a LEFT SHIFT is Present. Laboratory - Chemistry and C hemistry - challengeOrdered By: Marietta Ghosh on 11-11-2024 Glucose Ql (U) Negative [facility] - UrinalysisOrder ed By: Marietta Ghosh on 11-11-2024 Protein Ql (U) Negative [facility] MCV (mean corpuscular volume ) determinationOrdered By: Marietta Ghosh on 11-11-2024 MCV (RBC) [Entitic vol] 89.7 fL 81-99 [facility] Mean corpuscular hemoglobin (MCH) determinationOrdered By: Marietta Ghosh on 11-11-2024 MCH (RBC) [Entitic mass] 29.6 pg 27.0-32.0 [facility] Mean corpuscular hemoglobin concentration (MCHC) determinationOrdered By: Marietta Ghosh on 11-11-2024 MCHC (RBC) [Mass/Vol] 33.1 g/dL 32-36 [facility] Mean platelet volume determi nationOrdered By: Marietta Ghosh on 11-11-2024 Platelet mean volume (Bld) [Entitic vol] 10.7 fL 6.2-12.0 [facility] Monocyte percentageOrdered B y: Marietta Ghosh on 11-11-2024 Monocytes/100 WBC (Bld) 3.8 % 0-10 [facility] Neutrophil percentageOrdered By: Marietta Ghosh on 11-11-2024 Neutrophils/100 WBC (Bld) 76.6 % High 47-70 [facility] No Panel InformationOrdered By: Marietta Ghosh on 11-11-2024 HIV (1&2) Antibody Non-Reactive Nonreactive [facility] Comment on above: Non-ReactiveReactive Repeatedly reactive samples must be confirmed according to CDC recommended confirmatory algorithms. The subresults for either HIVAG or AHIV can be used as an aid in the selection of the confirmation algorithm for reactive samples.Send out specimens with Reactive results to [facility] for confirmation.Order the HIV antibody detection and differentiation: #[id number] Nucleated red blood cell per centageOrdered By: Marietta Ghosh on 11-11-2024 Nucleated RBC/100 WBC (Bld) [Ratio] 0 % 0-5 [facility] Trailer Technician Office Visit Reporton 11-11-2024 Trailer Technician Office Visit Report [facility]'s [address], [address] [place] [address] OFFICE VISIT Date of Service: 11/11/24 MR#: [id number] Acct: [id number] Name: AZAEL SULTANA Rep #: [id number] : 2000 Provider: RACHAEL Gutiérrez ams Age/Sex: 24/F [place] [facility] [place] Signed Intake Vital Signs 10/31/24 14:10 11/11/24 15:03 Height 5 ft 3 in 5 ft 3 in Weight: 264 lb 4 oz 261 lb 8 oz BMI 46.7 46.3 BP 129/84 H 120/82 H Intake Visit Reasons: 28 wk ob/glucose Chief Complaint: 28wk OB 3D Artist Required: No Is patient in pain?: No Allergies adhesive tape Allergy (Mild, Verified 11/11/24 15:01) Rash Medications ???Medication ???Instructions ???Recorded ???Confirmed ???Type multivit-min no.71-iron fum 28 300 cap PO DAILY 3 11/11/24 History mg-folate no.1 1 mg-dha 300 mg capsule (PNV-Windsor) ondansetron 4 mg disintegrating 4 mg PO [...] 2 current occupational status: employed current occupation: [employer] current occupational exposures/hazards: No pets and animals: [...] physical activity do you participate in: none matt/sabianist: None seatbelt use: always do you feel safe at home: Yes additional social history: Patient works at [employer]- Works at [employer] History 4 Elective abortions Hx Para 2 Spontaneous abortions 1 Hx # Term Pregnancies 2 Ectopic pregnancies Hx # Pregnancies Multiple births # of living children 2 Past Pregnancies Del. Date Name GA/Weeks Outcome Route Bth Weight Gen Labor Lgth Anesthesia Del Locatn Provider FOB 07/20/20 Andre 37 live - full term vacuum 8# 11oz Male [facility] Myke ellison 08/20/23 Radames Elizondo 38 live - full term 7lbs 8oz Male [facility] SM Delivery Date: 07/20/20 Last Updated by: [...] -???-???-???-???-???-?? ?-??? (more content not included)... Normal [facility] Platelet countOrdered By: Jovan Ghosh on 11-11-2024 Platelets (Bld) [#/Vol] 347 10*3/uL 150-450 [facility] RBC Auto (Bld) [#/Vol]Ordere d By: Marietta Ghosh on 11-11-2024 RBC (Bld) [#/Vol] 3.98 10*6/uL Low 4.2-5.4 [facility] Syphilis Antibodieson 2024 Syphilis Abs Non-Reactive Normal Nonreactive [facility] Comment on above: Performed By: #### L 205.1000 #### [facility] [address] [place], [address] White blood cell (WBC) count Ordered By: Marietta Ghosh on 11-11-2024 WBC (Bld) [#/Vol] 11.2 10*3/uL High 4.4-11.0 [facility] Laboratory - Chemistry and C hemistry - challengeOrdered By: Marietta Ghosh on 10-31-2024 Glucose Ql (U) Negative [facility] - UrinalysisOrder ed By: Marietta Ghosh on 10-31-2024 Protein Ql (U) Negative [facility] Trailer Technician Office Visit Reporton 10-31-2024 Trailer Technician Office Visit Report [facility] [address], [address] [place] [address] OFFICE VISIT Date of Service: 10/31/24 MR#: [id number] Acct: [id number] Name: AZAEL SULTANA Rep #: [id number] : 2000 Provider: RACHAEL Gutiérrez ams Age/Sex: 23/F [place] [facility] [place]: Signed Intake Vital Signs 07/03/24 13:01 10/02/24 15:00 10/31/24 14:10 Height 5 ft 3 in 5 ft 3 in 5 ft 3 in Weight: 264 lb 4 oz BMI 46.7 BP 129/84 H Intake Visit Reasons: 24 WK OB Chief Complaint: 26wk OB 3D Artist Required: No Is patient in pain?: No Allergies adhesive tape Allergy (Mild, Verified 10/31/24 14:08) Rash Medications ???Medication ???Instructions ???Recorded ???Confirmed ???Type multivit-min no.71-iron fum 28 300 cap PO DAILY 3 10/31/24 History mg-folate no.1 1 mg-dha 300 mg capsule (PNV-Windsor) ondansetron 4 mg disintegrating 4 mg PO [...] 2 current occupational status: employed current occupation: [employer] current occupational exposures/hazards: No pets and animals: [...] physical activity do you participate in: none matt/sabianist: None seatbelt use: always do you feel safe at home: Yes additional social history: Patient works at [employer]- Works at [employer] History 4 Elective abortions Hx Para 2 Spontaneous abortions 1 Hx # Term Pregnancies 2 Ectopic pregnancies Hx # Pregnancies Multiple births # of living children 2 Past Pregnancies Del. Date Name GA/Weeks Outcome Route Bth Weight Gen Labor Lgth Anesthesia Del Locatn Provider FOB 07/20/20 Andre 37 live - full term vacuum 8# 11oz Male [facility] Myke ellison 08/20/23 Radames Elizondo 38 live - full term 7lbs 8oz Male [facility] SM Delivery Date: 07/20/20 Last Updated by: [...] 174 -???-???-???-???-???-?? ?- (more content not included)... [facility] Trailer Technician Office Visit Reporton 10-02-2024 Trailer Technician Office Visit Report [facility] [address], [address] [place] [address] OFFICE VISIT Date of Service: 10/02/24 MR#: [id number] Acct: [id number] Name: AZAEL SULTANA Rep #: [id number] : 2000 Provider: RACHAEL Gutiérrez ams Age/Sex: 23/F Location[place] [facility] [place]: Signed Intake Vital Signs 08/27/24 15:32 10/02/24 15:00 10/02/24 15:00 Height 5 ft 3 in 5 ft 3 in 5 ft 3 in Weight: 258 lb 2 oz BMI 45.7 BP 122/82 H Intake Visit Reasons: 20WK OB Chief Complaint: 20wk ob 3D Artist Required: No Is patient in pain?: No Allergies adhesive tape Allergy (Mild, Verified 10/02/24 14:54) Rash Medications ???Medication ???Instructions ???Recorded ???Confirmed ???Type multivit-min no.71-iron fum 28 300 cap PO DAILY 3 10/02/24 History mg-folate no.1 1 mg-dha 300 mg capsule (PNV-Windsor) ondansetron 4 mg disintegrating 4 mg PO [...] 2 current occupational status: employed current occupation: [employer] current occupational exposures/hazards: No pets and [...] physical activity do you participate in: none matt/sabianist: None seatbelt use: always do you feel safe at home: Yes additional social history: Patient works at [employer]- Works at [employer] History 4 Elective abortions Hx Para 2 Spontaneous abortions 1 Hx # Term Pregnancies 2 Ectopic pregnancies Hx # Pregnancies Multiple births # of living children 2 Past Pregnancies Del. Date Name GA/Weeks Outcome Route Bth Weight Gen Labor Lgth Anesthesia Del Locatn Provider FOB 07/20/20 Andre 37 live - full term vacuum 8# 11oz Male [facility] Myke ellison 08/20/23 Radames Elizondo 38 live - full term 7lbs 8oz Male [facility] SM Delivery Date: 07/20/20 Last Updated by: [...] -???-???-???-???-???-?? ?-?? (more content not included)... Normal [facility] SHOULDER COMPLETE RTon 09-23 SHOULDER COMPLETE RT [place] [address] Patient: AZAEL SULTANA Phone#: : [phone] Age: 23 Gender: F Pt. Type: Out Account: [id number] Location: 052 Ordering: BIRD RUIZ Exam Date: 09/23/2024/14:30 Family Phys: Charge Code: 417501 Physician: [place] Order #: [id number] Dose#: PROCEDURE: X-RAY SHOULDER COMPLETE RT MIN [...] Fraser MD on 09/23/2024 at 15:45 Normal [facility] Trailer Technician Office Visit Reporton 08-27-2024 Trailer Technician Office Visit Report [facility] [address], [address] [place] [address] OFFICE VISIT Date of Service: 08/27/24 MR#: [id number] Acct: [id number] Name: AZAEL SULTANA Rep #: [id number] : 2000 Provider: Dr. Fadumo smith MD Age/Sex: 23/F Location[place] [facility] [place]: Signed Intake Vital Signs 07/03/24 13:01 08/01/24 11:40 08/27/24 15:30 08/27/24 15:32 Height 5 ft 3 in 5 ft 3 in 5 ft 3 in 5 ft 3 in Weight: 255 lb 4 oz BMI 45.2 BP 135/82 H Intake Visit Reasons: 16 WK OB 3D Artist Required: No Is patient in pain?: No Feel stressed/tense/nervous/ anxious/difficulty sleeping: not at all Allergies adhesive tape Allergy (Mild, Verified 08/27/24 15:30) Rash Medications ???Medication ???Instructions ???Recorded ???Confirmed ???Type multivit-min no.71-iron fum 28 300 cap PO DAILY 3 08/27/24 History mg-folate no.1 1 mg-dha 300 mg capsule (PNV-Windsor) ondansetron 4 mg disintegrating 4 mg PO [...] 2 current occupational status: employed current occupation: [employer] current occupational exposures/hazards: No pets and animals: [...] physical activity do you participate in: none matt/sabianist: None seatbelt use: always do you feel safe at home: Yes additional social history: Patient works at [employer]- Works at [employer] History 4 Elective abortions Hx Para 2 Spontaneous abortions 1 Hx # Term Pregnancies 2 Ectopic pregnancies Hx # Pregnancies Multiple births # of living children 2 Past Pregnancies Del. Date Name GA/Weeks Outcome Route Bth Weight Infant Gen Labor Lgth Anesthesia Del Locatn Provider FOB 07/20/20 Andre 37 live - full term vacuum 8# 11oz Male [facility] Myke ellison 08/20/23 Radames Elizondo 38 live - full term 7lbs 8oz Male [facility] SM Delivery Date: 07/20/20 Last Updated by: [...] ?-???-???-???-???-???-? ??- (more content not included)... Normal [facility] Laboratory - Chemistry and C hemistry - challengeOrdered By: Fadumo Zelaya on 08-01-2024 Glucose Ql (U) Negative [facility] Laboratory - UrinalysisOrder ed By: Fadumo Zelaya on 08-01-2024 Protein Ql (U) Negative [facility] Trailer Technician Office Visit Reporton 08-01-2024 Trailer Technician Office Visit Report [facility] [address], [address] [place] [address] OFFICE VISIT Date of Service: 08/01/24 MR#: [id number] Acct: [id number] Name: AZAEL SULTANA Rep #: [id number] : 2000 Provider: Dr. Fadumo smith MD Age/Sex: 23/F Location[place] [facility] [place]: Signed Intake Vital Signs 03/11/24 08:55 [...] mg-folate no.1 1 mg-dha 300 mg capsule (PNV-Windsor) ondansetron 4 mg disintegrating 4 mg PO [...] 2 current occupational status: employed current occupation: [employer] current occupational exposures/hazards: No pets and [...] physical activity do you participate in: none matt/sabianist: None seatbelt use: always do you feel safe at home: Yes additional social history: Patient works at [employer]- Works at [employer] History 4 Elective abortions Hx Para 2 Spontaneous abortions 1 Hx # Term Pregnancies 2 Ectopic pregnancies Hx # Pregnancies Multiple births # of living children 2 Past Pregnancies Del. Date Name GA/Weeks Outcome Route Bth Weight Gen Labor Lgth Anesthesia Del Locatn Provider FOB 07/20/20 Andre 37 live - full term vacuum 8# 11oz Male [facility] Myke ellison 08/20/23 Radames Elizondo 38 live - full term 7lbs 8oz Male [facility] SM Delivery Date: 07/20/20 Last Updated by: [...] weeks 01 (more content not included)... Normal [facility] HEP B SURFACE AB, QUANT [CCL ]on 07-22-2024 HepB Surface Ab,Qual Negative Normal [facility] Comment on above: Result Comment: No s erological evidence of immunity to Hepatitis B Virus. Performed By: #### 2 [id number] #### [facility],[address] [place] [address] HepB SurfaceAb,Quant <8.00 Normal [facility] Comment on above: Result Comment: <8 m IU/mL: No serological evidence of immunity to Hepatitis B Virus. >/= 8 to <12 mIU/mL: No serological evidence of immunity to Hepatitis B Virus. >/= 12 mIU/mL: Consistent with serological evidence of immunity to Hepatitis B Virus. [facility] [employer] [facility] [place] [id number] Ruben Stephenson III, M.D. [id number] Performed By: #### 2 84956 #### [address] [address] MEASLES IGG ANTIBODY [CCL]on 07-22-2024 Measles IgG, Qual Positive Normal Positive [facility] Comment on above: Result Comment: The result suggests recent or past exposure to Measles virus or Measles vaccination. The current test does not detect neutralizing antibodies. Positive result may also be seen due to presence of passively-transferred antibodies. Please correlate with patient's history. [facility] [employer] [facility] [place] [address] Ruben Stephenson III, M.D. [id number] Performed By: #### 2 32666 #### [address] [address] MUMPS IGG AB [CCL]on 025 Mumps IgG, Qual Positive Normal Positive [facility] Comment on above: Result Comment: The result suggests recent or past exposure to Mumps virus or Mumps vaccination. The current test does not detect neutralizing antibodies. Positive result may also be seen due to presence of passively-transferred antibodies. Please correlate with patient's history. [facility] [employer] [facility] [place] [address] Ruben Stephenson III, M.D. [id number] Performed By: #### 2 15779 #### [address] [address] RUBELLA IgG ANTIBODY [CCL]on 07-22-2024 Rubella IgG Ab, Qual Positive Normal Positive [facility] Comment on above: Result Comment: The result suggests recent or past exposure to Rubella virus or history of Rubella vaccination. Positive result may also be seen due to presence of passively-transferred antibodies. Please correlate with patient's history. [facility] [employer] [address] [place] [address] Ruben Stephenson III, M.D. [id number] Performed By: #### 2 26950 #### [facility],[address] [place] [address] VARICELLA ZOSTER IGG AB [CCL ]on 07-22-2024 V. zoster IgG, Qual Positive Normal Positive [facility] Comment on above: Result Comment: The result suggests recent or past exposure to Varicella-Zoster virus or chickenpox vaccination or zoster vaccination. Positive result may also be seen due to presence of passively-transferred antibodies. Please correlate with patient's history. [facility] [employer] [address] [place] [address] Ruben Stephenson III, M.D. [id number] Performed By: #### 2 01940 #### [facility],[address] [place] [address] Absolute lymphocyte countOrd ered By: Marietta Ghosh on 07-21-2024 Lymphocytes Auto (Unsp spec) [#/Vol] 1.97 10*3/uL 0.83-4.51 [facility] Absolute neutrophil countOrd ered By: Marietta Ghosh on 07-21-2024 Neutrophils (Bld) [#/Vol] 6.5 10*3/uL 2.0-7.7 [facility] Albumin to globulin ratioOrd ered By: Marietta Ghosh on 07-21-2024 Albumin/Globulin [Mass ratio] 0.7 {ratio} Low 0.9-2.4 [facility] Automated lymphocyte count a s percentage of total leukocytesOrdered By: Marietta Ghosh on 07-21-2024 Lymphocytes/100 WBC Auto (Unsp spec) 21.8 % 19-41 [facility] Basophil percentageOrdered B y: Marietta Ghosh on 07-21-2024 Basophils/100 WBC (Bld) 0.3 % 0-1 [facility] Bilirubin, totalOrdered By: Marietta Ghosh on 07-21-2024 Bilirubin [Mass/Vol] 0.10 mg/dL Low 0.20-1.00 [facility] Comment on above: For patients on eltr ombopag therapy, use of Dimension [place] TBIL is not recommended. Blood urea nitrogen (BUN)/cr eatinine ratioOrdered By: Marietta Ghosh on 07-21-2024 Urea nitrogen/Creatinine [Mass ratio] 15.8 mg/mg 04-20 [facility] CBC W/Diff, Automatedon 07-03 Absolute Lymph 1.97 X10 3/uL Normal 0.83-4.51 [facility] Comment on above: Performed By: #### L 509.8000, BTS, L3890.6300, L500.4050, L3890.6100, L100.0100, L501.9985, L900.0098, L505.5000, L509.4005, L3890.6005 ####[facility] [address] [place], [place], [id number] Absolute Neut 6.5 X10 3/uL Normal 2.0-7.7 [facility] Comment on above: Performed By: #### L 509.8000, BTS, L3890.6300, L500.4050, L3890.6100, L100.0100, L501.9985, L900.0098, L505.5000, L509.4005, L3890.6005 ####[facility] [address] [place], [place], [id number] Basophils/100 WBC (Bld) 0.3 % Normal 0-1 [facility] Comment on above: Performed By: #### L 509.8000, BTS, L3890.6300, L500.4050, L3890.6100, L100.0100, L501.9985, L900.0098, L505.5000, L509.4005, L3890.6005 ####[facility] [address] [place], [address] Eosinophils/100 WBC (Bld) 0.9 % Normal 0-5 [facility] Comment on above: Performed By: #### L 509.8000, BTS, L3890.6300, L500.4050, L3890.6100, L100.0100, L501.9985, L900.0098, L505.5000, L509.4005, L3890.6005 ####[facility] [address] [place], [address] Erythrocyte distribution width (RBC) [Ratio] 15.9 % High 11.6-14.6 [facility] Comment on above: Performed By: #### L 509.8000, BTS, L3890.6300, L500.4050, L3890.6100, L100.0100, L501.9985, L900.0098, L505.5000, L509.4005, L3890.6005 ####[facility] [address] [place], [place], [phone](232) Hematocrit (Bld) [Volume fraction] 35.2 % Low 37-47 [facility] Comment on above: Performed By: #### L 509.8000, BTS, L3890.6300, L500.4050, L3890.6100, L100.0100, L501.9985, L900.0098, L505.5000, L509.4005, L3890.6005 ####[facility] [address] [place], [address] Hemoglobin (Bld) [Mass/Vol] 11.4 g/dL Low 12.0-15.0 [facility] Comment on above: Performed By: #### L 509.8000, BTS, L3890.6300, L500.4050, L3890.6100, L100.0100, L501.9985, L900.0098, L505.5000, L509.4005, L3890.6005 ####[facility] [address] [place], [address] IG% 0.400 Normal 0.0-0.9 [facility] Comment on above: Result Comment: IG% - Immature Granulocytes (promyelocytes, myelocytes and metamyelocytes) > 1% indicates that a LEFT SHIFT is Present. Performed By: #### L 509.8000, BTS, L3890.6300, L500.4050, L3890.6100, L100.0100, L501.9985, L900.0098, L505.5000, L509.4005, L3890.6005 ####[facility] [address] [facility] [place], [address] Lymphocytes/100 WBC (Bld) 21.8 % Normal 19-41 [facility] Comment on above: Performed By: #### L 509.8000, BTS, L3890.6300, L500.4050, L3890.6100, L100.0100, L501.9985, L900.0098, L505.5000, L509.4005, L3890.6005 ####[facility] [address] [facility] [place], [address] MCH (RBC) [Entitic mass] 28.6 pg Normal 27.0-32.0 [facility] Comment on above: Performed By: #### L 509.8000, BTS, L3890.6300, L500.4050, L3890.6100, L100.0100, L501.9985, L900.0098, L505.5000, L509.4005, L3890.6005 ####[facility] [address] [facility] [place], [address] MCHC (RBC) [Mass/Vol] 32.4 g/dL Normal 32-36 [facility] Comment on above: Performed By: #### L 509.8000, BTS, L3890.6300, L500.4050, L3890.6100, L100.0100, L501.9985, L900.0098, L505.5000, L509.4005, L3890.6005 ####[facility] [address] [place], [address] MCV (RBC) [Entitic vol] 88.4 fL Normal 81-99 [facility] Comment on above: Performed By: #### L 509.8000, BTS, L3890.6300, L500.4050, L3890.6100, L100.0100, L501.9985, L900.0098, L505.5000, L509.4005, L3890.6005 ####[facility] [address] [place], [address] Monocytes/100 WBC (Bld) 5.0 % Normal 0-10 [facility] Comment on above: Performed By: #### L 509.8000, BTS, L3890.6300, L500.4050, L3890.6100, L100.0100, L501.9985, L900.0098, L505.5000, L509.4005, L3890.6005 ####[facility] [address] [place], [address] Neutrophils/100 WBC (Bld) 71.6 % High 47-70 [facility] Comment on above: Performed By: #### L 509.8000, BTS, L3890.6300, L500.4050, L3890.6100, L100.0100, L501.9985, L900.0098, L505.5000, L509.4005, L3890.6005 ####[facility] [address] [place], [address] Nucleated RBC (Bld) [#/Vol] 0 10*3/uL Normal 0-5 [facility] Comment on above: Performed By: #### L 509.8000, BTS, L3890.6300, L500.4050, L3890.6100, L100.0100, L501.9985, L900.0098, L505.5000, L509.4005, L3890.6005 ####[facility] [address] [place], [address](750) Platelet mean volume (Bld) [Entitic vol] 10.2 fL Normal 6.2-12.0 [facility] Comment on above: Performed By: #### L 509.8000, BTS, L3890.6300, L500.4050, L3890.6100, L100.0100, L501.9985, L900.0098, L505.5000, L509.4005, L3890.6005 ####[facility] [address] [place], [address](647) Platelets (Bld) [#/Vol] 329 10*3/uL Normal 150-450 [facility] Comment on above: Performed By: #### L 509.8000, BTS, L3890.6300, L500.4050, L3890.6100, L100.0100, L501.9985, L900.0098, L505.5000, L509.4005, L3890.6005 ####[facility] [address] [place], [address](472) RBC (Bld) [#/Vol] 3.98 10*6/uL Low 4.2-5.4 [facility] Comment on above: Performed By: #### L 509.8000, BTS, L3890.6300, L500.4050, L3890.6100, L100.0100, L501.9985, L900.0098, L505.5000, L509.4005, L3890.6005 ####[facility] [address] [place], [address](314) RDW SD 52.0 fl High 35.1-43.9 [facility] Comment on above: Performed By: #### L 509.8000, BTS, L3890.6300, L500.4050, L3890.6100, L100.0100, L501.9985, L900.0098, L505.5000, L509.4005, L3890.6005 ####[facility] [address] [place], [address] WBC (Bld) [#/Vol] 9.0 10*3/uL Normal 4.4-11.0 [facility] Comment on above: Performed By: #### L 509.8000, BTS, L3890.6300, L500.4050, L3890.6100, L100.0100, L501.9985, L900.0098, L505.5000, L509.4005, L3890.6005 ####[facility] [address] [place], [address] Carbon dioxide measurementOr dered By: Marietta Ghosh on 07-21-2024 CO2 [Moles/Vol] 24.0 mmol/L 21.0-32.0 [facility] Chloride measurementOrdered By: Marietta Ghosh on 07-21-2024 Chloride [Moles/Vol] 106 mmol/L 98-107 [facility] Comprehensive Metabolic Prof ilon 07-21-2024 Albumin [Mass/Vol] 2.8 g/dL Low 3.2-5.0 [facility] Comment on above: Order Comment: NIPT with Gender Performed By: #### L 509.8000, BTS, L3890.6300, L500.4050, L3890.6100, L100.0100, L501.9985, L900.0098, L505.5000, L509.4005, L3890.6005 ####[facility] [address] [place], [place], [id number] Albumin/Globulin [Mass ratio] 0.7 {ratio} Low 0.9-2.4 [facility] Comment on above: Order Comment: NIPT with Gender Performed By: #### L 509.8000, BTS, L3890.6300, L500.4050, L3890.6100, L100.0100, L501.9985, L900.0098, L505.5000, L509.4005, L3890.6005 ####[facility] [address] [place], [place], [id number] ALK P 82 U/L Normal 45-117 [facility] Comment on above: Order Comment: NIPT with Gender Performed By: #### L 509.8000, BTS, L3890.6300, L500.4050, L3890.6100, L100.0100, L501.9985, L900.0098, L505.5000, L509.4005, L3890.6005 ####[facility] [address] [place], [place], [id number] ALT [Catalytic activity/Vol] 11 U/L Low 13-56 [facility] Comment on above: Order Comment: NIPT with Gender Performed By: #### L 509.8000, BTS, L3890.6300, L500.4050, L3890.6100, L100.0100, L501.9985, L900.0098, L505.5000, L509.4005, L3890.6005 ####[facility] [address] [place], [place], [phone] AST [Catalytic activity/Vol] 8 U/L Low 15-37 [facility] Comment on above: Order Comment: NIPT with Gender Performed By: #### L 509.8000, BTS, L3890.6300, L500.4050, L3890.6100, L100.0100, L501.9985, L900.0098, L505.5000, L509.4005, L3890.6005 ####[facility] [address] [place], [address] Bilirubin [Mass/Vol] 0.10 mg/dL Low 0.20-1.00 [facility] Comment on above: Order Comment: NIPT with Gender Result Comment: For patients on eltrombopag therapy, use of Dimension [place] TBIL is not recommended. Performed By: #### L 509.8000, BTS, L3890.6300, L500.4050, L3890.6100, L100.0100, L501.9985, L900.0098, L505.5000, L509.4005, L3890.6005 ####[facility] [address] [place], [place], [phone] BUN/CRE 15.8 RATIO Normal 10-20 [facility] Comment on above: Order Comment: NIPT with Gender Performed By: #### L 509.8000, BTS, L3890.6300, L500.4050, L3890.6100, L100.0100, L501.9985, L900.0098, L505.5000, L509.4005, L3890.6005 ####[facility] [address] [place], [place], [phone] CA,Total 9.0 mg/dL Normal 8.5-10.1 [facility] Comment on above: Order Comment: NIPT with Gender Performed By: #### L 509.8000, BTS, L3890.6300, L500.4050, L3890.6100, L100.0100, L501.9985, L900.0098, L505.5000, L509.4005, L3890.6005 ####[facility] [address] [place], [place], [phone] Chloride [Moles/Vol] 106 mmol/L Normal 98-107 [facility] Comment on above: Order Comment: NIPT with Gender Performed By: #### L 509.8000, BTS, L3890.6300, L500.4050, L3890.6100, L100.0100, L501.9985, L900.0098, L505.5000, L509.4005, L3890.6005 ####[facility] [address] [place], [address] CO2 [Moles/Vol] 24.0 mmol/L Normal 21.0-32.0 [facility] Comment on above: Order Comment: NIPT with Gender Performed By: #### L 509.8000, BTS, L3890.6300, L500.4050, L3890.6100, L100.0100, L501.9985, L900.0098, L505.5000, L509.4005, L3890.6005 ####[facility] [address] [place], [address] Creatinine [Mass/Vol] 0.50 mg/dL Low 0.55-1.02 [facility] Comment on above: Order Comment: NIPT with Gender Result Comment: The validity of the calculated GFR GFRAA in patients over 70 years has not been determined. Clinical correlation is essential. Performed By: #### L 509.8000, BTS, L3890.6300, L500.4050, L3890.6100, L100.0100, L501.9985, L900.0098, L505.5000, L509.4005, L3890.6005 ####[facility] [address] [place], [address] EST GFR - AA 193 mL/min Normal >60 [facility] Comment on above: Order Comment: NIPT with Gender Result Comment: Afri can Jamaican GFR Calc Performed By: #### L 509.8000, BTS, L3890.6300, L500.4050, L3890.6100, L100.0100, L501.9985, L900.0098, L505.5000, L509.4005, L3890.6005 ####[facility] [address] [place], [address] GAP 5 Normal 5-15 [facility] Comment on above: Order Comment: NIPT with Gender Performed By: #### L 509.8000, BTS, L3890.6300, L500.4050, L3890.6100, L100.0100, L501.9985, L900.0098, L505.5000, L509.4005, L3890.6005 ####[facility] [address] [place], [place], [phone] GFR/1.73 sq M.predicted among non-blacks MDRD (S/P/Bld) [Vol rate/Area] 160 mL/min/{1.73_m2} Normal >60 [facility] Comment on above: Order Comment: NIPT with Gender Result Comment: Non- GFR Calc Performed By: #### L 509.8000, BTS, L3890.6300, L500.4050, L3890.6100, L100.0100, L501.9985, L900.0098, L505.5000, L509.4005, L3890.6005 ####[facility] [address] [place], [address] Globulin (S) [Mass/Vol] 3.9 g/dL Normal 2.2-4.2 [facility] Comment on above: Order Comment: NIPT with Gender Performed By: #### L 509.8000, BTS, L3890.6300, L500.4050, L3890.6100, L100.0100, L501.9985, L900.0098, L505.5000, L509.4005, L3890.6005 ####[facility] [address] [place], [place], [phone] Glucose [Mass/Vol] 138 mg/dL High 74-106 [facility] Comment on above: Order Comment: NIPT with Gender Result Comment: Fast ing Glucose result greater than or equal to 126 mg/dL suggests DIABETES MELLITUS per A.D.A. criteria. Performed By: #### L 509.8000, BTS, L3890.6300, L500.4050, L3890.6100, L100.0100, L501.9985, L900.0098, L505.5000, L509.4005, L3890.6005 ####[facility] [address] [place], [address] Potassium [Moles/Vol] 3.6 mmol/L Normal 3.5-5.1 [facility] Comment on above: Order Comment: NIPT with Gender Performed By: #### L 509.8000, BTS, L3890.6300, L500.4050, L3890.6100, L100.0100, L501.9985, L900.0098, L505.5000, L509.4005, L3890.6005 ####[facility] [address] [place], [address] Sodium [Moles/Vol] 135 mmol/L Low 136-145 [facility] Comment on above: Order Comment: NIPT with Gender Performed By: #### L 509.8000, BTS, L3890.6300, L500.4050, L3890.6100, L100.0100, L501.9985, L900.0098, L505.5000, L509.4005, L3890.6005 ####[facility] [address] [place], [address] T PROT 6.7 g/dL Normal 6.4-8.2 [facility] Comment on above: Order Comment: NIPT with Gender Performed By: #### L 509.8000, BTS, L3890.6300, L500.4050, L3890.6100, L100.0100, L501.9985, L900.0098, L505.5000, L509.4005, L3890.6005 ####[facility] [address] [place], [address] Urea nitrogen [Mass/Vol] 8 mg/dL Normal 7-18 [facility] Comment on above: Order Comment: NIPT with Gender Performed By: #### L 509.8000, BTS, L3890.6300, L500.4050, L3890.6100, L100.0100, L501.9985, L900.0098, L505.5000, L509.4005, L3890.6005 ####[facility] [address] [place], [place], [phone] Eosinophil percentageOrdered By: Marietta hGosh on 07-21-2024 Eosinophils/100 WBC (Bld) 0.9 % 0-5 [facility] Erythrocyte distribution wid th ratioOrdered By: Marietta Ghosh on 07-21-2024 Erythrocyte distribution width (RBC) [Ratio] 15.9 % High 11.6-14.6 [facility] Erythrocyte distribution wid th standard deviationOrdered By: Marietta Ghosh on 07-21-2024 Erythrocyte distribution width (RBC) [Ratio] 52.0 fl High 35.1-43.9 [facility] Gestational diabetes screen 1-hour screen with 50g oral glucose loadOrdered By: Marietta Ghosh on 07-21-2024 Glucose 1 Hr post 50 g glucose PO [Mass/Vol] 130 mg/dL 70-140 [facility] Glomerular filtration rate ( GFR) estimationOrdered By: Marietta Ghosh on 07-21-2024 GFR/1.73 sq M.predicted among non-blacks MDRD (S/P/Bld) [Vol rate/Area] 160 mL/min/{1.73_m2} >60 [facility] Comment on above: Non- GFR Calc Glucose Challenge Gest 1H 50 qi 07-21-2024 GLU GEST 50g 1H 130 mg/dL Normal 70-140 [facility] Comment on above: Performed By: #### L 501.0250, L501.0900 #### [facility] [address] [place], [place], [phone] Glucose measurementOrdered B y: Marietta Ghosh on 07-21-2024 Glucose [Mass/Vol] 138 mg/dL High 74-106 [facility] Comment on above: Fasting Glucose resu lt greater than or equal to 126 mg/dL suggests DIABETES MELLITUS per A.D.A. criteria. HIV - WCHon 07-21-2024 HIV Non-Reactive Normal Nonreactive [facility] Comment on above: Order Comment: Gartho n for Exam: Performed By: #### L 509.8000, BTS, L3890.6300, L500.4050, L3890.6100, L100.0100, L501.9985, L900.0098, L505.5000, L509.4005, L3890.6005 ####[facility] [address] [place], [place], [address] HIV 1 and HIV-2 antibody ass ay with HIV-1 p24 antigen detectionOrdered By: Marietta Ghosh on 07-21-2024 HIV 1+2 Ab+HIV1 p24 Ag IA Ql Non-Reactive Nonreactive [facility] Hematocrit Auto (Bld) [Volum e fraction]Ordered By: Marietta Ghosh on 07-21-2024 Hematocrit (Bld) [Volume fraction] 35.2 % Low 37-47 [facility] Hemoglobin A1con 07-21-2024 HbA1c (Bld) [Mass fraction] 5.5 % Normal 3.8-5.6 [facility] Comment on above: Result Comment: Norm al < 5.7 % Prediabetic 5.7 - 6.4 % Diabetic >or= 6.5 % Please note range changes. Performed By: #### L 509.8000, BTS, L3890.6300, L500.4050, L3890.6100, L100.0100, L501.9985, L900.0098, L505.5000, L509.4005, L3890.6005 ####[facility] [address] [place], [place], [phone] Hemoglobin A1c percentageOrd ered By: Marietta Ghosh on 07-21-2024 HbA1c (Bld) [Mass fraction] 5.5 % 3.8-5.6 [facility] Comment on above: Normal < 5.7 % Predi abetic 5.7 - 6.4 % Diabetic >or= 6.5 % Please note range changes. Hemoglobin measurementOrdere d By: Marietta Ghosh on 07-21-2024 Hemoglobin (Bld) [Mass/Vol] 11.4 g/dL Low 12.0-15.0 [facility] Hepatitis B Surface Antigeno n 07-21-2024 HEP B Surf Ag Non-Reactive Normal Nonreactive [facility] Comment on above: Order Comment: Reaso n for Exam: Performed By: #### L 509.8000, BTS, L3890.6300, L500.4050, L3890.6100, L100.0100, L501.9985, L900.0098, L505.5000, L509.4005, L3890.6005 ####[facility] [address] [place], [address] Hepatitis C Antibodyon 07-21 Hepatitis C AB Non-Reactive Normal Nonreactive [facility] Comment on above: Order Comment: Reaso n for Exam: Result Comment: Non Reactive: < 0.8 Equivocal: >/= 0.8 to < 1.0 Reactive: >/= 1.0 The CDC requires that a reactive/equivocal HCV antibody result be sent out for confirmation. HCV Quant by PCR testing. Performed By: #### L 509.8000, BTS, L3890.6300, L500.4050, L3890.6100, L100.0100, L501.9985, L900.0098, L505.5000, L509.4005, L3890.6005 ####[facility] [address] [place], [address] Immature granulocytes/100 WB C Auto (Bld)Ordered By: Marietta Ghosh on 07-21-2024 Immature granulocytes/100 WBC (Bld) 0.400 % 0.0-0.9 [facility] Comment on above: IG% - Immature Granu locytes (promyelocytes, myelocytes and metamyelocytes) > 1% indicates that a LEFT SHIFT is Present. L509.8000on 07-21-2024 Syphilis Abs Non-Reactive Normal [facility] Comment on above: Order Comment: Reaso n for Exam: Performed By: #### L 509.8000, BTS, L3890.6300, L500.4050, L3890.6100, L100.0100, L501.9985, L900.0098, L505.5000, L509.4005, L3890.6005 ####[facility] [address] [place], [place], [id number] Laboratory - Chemistry and C hemistry - challengeOrdered By: Marietta Ghosh on 07-21-2024 AST [Catalytic activity/Vol] 8 U/L Low 15-37 [facility] MCV (mean corpuscular volume ) determinationOrdered By: Marietta Ghosh on 07-21-2024 MCV (RBC) [Entitic vol] 88.4 fL 81-99 [facility] Mean corpuscular hemoglobin (MCH) determinationOrdered By: Marietta Ghosh on 07-21-2024 MCH (RBC) [Entitic mass] 28.6 pg 27.0-32.0 [facility] Mean corpuscular hemoglobin concentration (MCHC) determinationOrdered By: Marietta Ghosh on 07-21-2024 MCHC (RBC) [Mass/Vol] 32.4 g/dL 32-36 [facility] Mean platelet volume determi nationOrdered By: Marietta Ghosh on 07-21-2024 Platelet mean volume (Bld) [Entitic vol] 10.2 fL 6.2-12.0 [facility] Monocyte percentageOrdered B y: Marietta Ghosh on 07-21-2024 Monocytes/100 WBC (Bld) 5.0 % 0-10 [facility] NATERAon 07-21-2024 NATURA SEE SCANNED REPORT Normal [facility] Comment on above: Order Comment: Comme nts: NIPT with Gender Performed By: #### L 509.8000, BTS, L3890.6300, L500.4050, L3890.6100, L100.0100, L501.9985, L900.0098, L505.5000, L509.4005, L3890.6005 ####[facility] [address] [place], [place], [phone] Neutrophil percentageOrdered By: Marietta Ghosh on 07-21-2024 Neutrophils/100 WBC (Bld) 71.6 % High 47-70 [facility] No Panel InformationOrdered By: Marietta Ghosh on 07-21-2024 Urine Drug Screen Comment [facility] Comment on above: CONFIRMATORY TESTING FOR ALL [...] RBC/100 WBC (Bld) [Ratio] 0 % 0-5 [facility] Platelet countOrdered By: Jovan Ghosh on 07-21-2024 Platelets (Bld) [#/Vol] 329 10*3/uL 150-450 [facility] Potassium measurementOrdered By: Marietta Ghosh on 07-21-2024 Potassium [Moles/Vol] 3.6 mmol/L 3.5-5.1 [facility] Protein+Creatinine Ratio,Uri neon 07-21-2024 PROT:CRE RATIO 98 mg/g CRE Normal 0-200 [facility] Comment on above: Performed By: #### L 501.0250, L501.0900 #### [facility] [address] [place], [place], [phone] UR CREAT 131.00 mg/dL Normal NO RANGE EST. [facility] Comment on above: Performed By: #### L 501.0250, L501.0900 #### [facility] [address] [facility], [address] Quantitative urine opiates m easurementOrdered By: Marietta Ghosh on 07-21-2024 Opiates Ql (U) Negative < 300 ng/mL [facility] RBC Auto (Bld) [#/Vol]Ordere d By: Marietta Ghosh on 07-21-2024 RBC (Bld) [#/Vol] 3.98 10*6/uL Low 4.2-5.4 [facility] Random urine protein measure mentOrdered By: Marietta Ghosh on 07-21-2024 Protein (U) [Mass/Vol] 12.9 mg/dL High <11.9 [facility] Comment on above: Performed By: #### L 501.0250, L501.0900 #### [facility] [address] [place], [address] Rubella IgGon 07-21-2024 Rubella IgG Reactive Normal Nonreactive [facility] Comment on above: Order Comment: Reaso n for Exam: Result Comment: Anti body Results Interpretation of Immune Status Non Reactive Presumed Non-Immune Equivocal Equivocal Reactive Presumed Immune Performed By: #### L 509.8000, BTS, L3890.6300, L500.4050, L3890.6100, L100.0100, L501.9985, L900.0098, L505.5000, L509.4005, L3890.6005 ####[facility] [address] [place], [address] Serum Treponema species anti body detectionOrdered By: Marietta Ghosh on 07-21-2024 Treponema sp Ab Ql (S) Non-Reactive [facility] Serum anion gap measurementO rdered By: Marietta Ghosh on 07-21-2024 Anion gap [Moles/Vol] 5 mmol/L 5-15 [facility] Serum globulin measurementOr dered By: Marietta Ghosh on 07-21-2024 Globulin (S) [Mass/Vol] 3.9 g/dL 2.2-4.2 [facility] Serum or plasma alanine purdy otransferase (ALT) measurementOrdered By: Marietta Ghosh on 07-21-2024 ALT [Catalytic activity/Vol] 11 U/L Low 13-56 [facility] Serum or plasma albumin jose cruz urement (mass/volume)Ordered By: Marietta Ghosh on 07-21-2024 Albumin [Mass/Vol] 2.8 g/dL Low 3.2-5.0 [facility] Serum or plasma alkaline silvio sphatase measurementOrdered By: Marietta Ghosh on 07-21-2024 ALP [Catalytic activity/Vol] 82 U/L 45-117 [facility] Serum or plasma calcium jose cruz urement (mass/volume)Ordered By: Marietta Ghosh on 07-21-2024 Calcium [Mass/Vol] 9.0 mg/dL 8.5-10.1 [facility] Serum or plasma creatinine m easurement (mass/volume)Ordered By: Marietta Ghosh on 07-21-2024 Creatinine [Mass/Vol] 0.50 mg/dL Low 0.55-1.02 [facility] Comment on above: The validity of the calculated GFR & GFRAA in patients over 70 years has not been determined. Clinical correlation is essential. Serum or plasma urea nitroge n measurement (mass/volume)Ordered By: Marietta Ghosh on 07-21-2024 Urea nitrogen [Mass/Vol] 8 mg/dL 7-18 [facility] Sodium levelOrdered By: Grace Ghosh on 07-21-2024 Sodium [Moles/Vol] 135 mmol/L Low 136-145 [facility] Total proteinOrdered By: Arthur Ghosh on 07-21-2024 Protein [Mass/Vol] 6.7 g/dL 6.4-8.2 [facility] Type AND Screenon 07-21-2024 Ab SCREEN GEL Negative Normal [facility] Comment on above: Order Comment: PN Performed By: #### L 509.8000, BTS, L3890.6300, L500.4050, L3890.6100, L100.0100, L501.9985, L900.0098, L505.5000, L509.4005, L3890.6005 ####[facility] [address] [place], [address] Urine Drug Screen (VISTA)on 07-21-2024 AMPHETAMINES Negative Normal <1000 ng/mL [facility] Comment on above: Order Comment: NIPT with Gender UNK Performed By: #### L 509.8000, BTS, L3890.6300, L500.4050, L3890.6100, L100.0100, L501.9985, L900.0098, L505.5000, L509.4005, L3890.6005 #### [facility] [address] [place], [address] BARBITIURATES Negative Normal < 200 ng/mL [facility] Comment on above: Order Comment: NIPT with Gender UNK Performed By: #### L 509.8000, BTS, L3890.6300, L500.4050, L3890.6100, L100.0100, L501.9985, L900.0098, L505.5000, L509.4005, L3890.6005 #### [facility] [address] [place], [address] BENZODIAZIPINE Negative Normal < 200 ng/mL [facility] Comment on above: Order Comment: NIPT with Gender UNK Performed By: #### L 509.8000, BTS, L3890.6300, L500.4050, L3890.6100, L100.0100, L501.9985, L900.0098, L505.5000, L509.4005, L3890.6005 #### [facility] [address] [place], [address] COCAINE Negative Normal < 300 ng/mL [facility] Comment on above: Order Comment: NIPT with Gender UNK Performed By: #### L 509.8000, BTS, L3890.6300, L500.4050, L3890.6100, L100.0100, L501.9985, L900.0098, L505.5000, L509.4005, L3890.6005 #### [facility] [address] [place], [address] ECSTACY Negative Normal < 500 ng/mL [facility] Comment on above: Order Comment: NIPT with Gender UNK Performed By: #### L 509.8000, BTS, L3890.6300, L500.4050, L3890.6100, L100.0100, L501.9985, L900.0098, L505.5000, L509.4005, L3890.6005 #### [facility] [address] [facility] [place], [address] METHADONE Negative Normal < 300 ng/mL [facility] Comment on above: Order Comment: NIPT with Gender UNK Performed By: #### L 509.8000, BTS, L3890.6300, L500.4050, L3890.6100, L100.0100, L501.9985, L900.0098, L505.5000, L509.4005, L3890.6005 #### [facility] [address] [facility] [place], [address] OPIATES Negative Normal < 300 ng/mL [facility] Comment on above: Order Comment: NIPT with Gender UNK Performed By: #### L 509.8000, BTS, L3890.6300, L500.4050, L3890.6100, L100.0100, L501.9985, L900.0098, L505.5000, L509.4005, L3890.6005 #### [facility] [address] [facility] [place], [address] PCP Negative Normal < 25 ng/mL [facility] Comment on above: Order Comment: NIPT with Gender UNK Performed By: #### L 509.8000, BTS, L3890.6300, L500.4050, L3890.6100, L100.0100, L501.9985, L900.0098, L505.5000, L509.4005, L3890.6005 #### [facility] [address] [facility], [address] THC Positive Abnormal < 50 ng/mL [facility] Comment on above: Order Comment: NIPT with Gender UNK Performed By: #### L 509.8000, BTS, L3890.6300, L500.4050, L3890.6100, L100.0100, L501.9985, L900.0098, L505.5000, L509.4005, L3890.6005 #### [facility] [address] [place], [place], [id number] VISTA UDS PH 5 Normal [facility] Comment on above: Order Comment: NIPT with Gender UNK Performed By: #### L 509.8000, BTS, L3890.6300, L500.4050, L3890.6100, L100.0100, L501.9985, L900.0098, L505.5000, L509.4005, L3890.6005 #### [facility] [address] [place], [place], [phone] Urine amphetamine measuremen tOrdered By: Marietta Ghosh on 07-21-2024 Amphetamines Ql (U) Negative <1000 ng/mL [facility] Urine benzodiazepine levelOr dered By: Marietta Ghosh on 07-21-2024 Benzodiazepines Ql (U) Negative < 200 ng/mL [facility] Urine cocaine levelOrdered B y: Marietta Ghosh on 07-21-2024 Cocaine Ql (U) Negative < 300 ng/mL [facility] Urine creatinine measurement (mass/volume)Ordered By: Marietta Ghosh on 07-21-2024 Creatinine (U) [Mass/Vol] 131.00 mg/dL NO RANGE EST. [facility] Urine ednlz-4-mcpjaiiflrnusu abinol (THC) measurementOrdered By: Marietta Ghosh on 07-21-2024 Cannabinoids Screen Ql (U) Positive High < 50 ng/mL [facility] Urine phencyclidine (PCP) de tectionOrdered By: Marietta Ghosh on 07-21-2024 Phencyclidine Ql (U) Negative < 25 ng/mL [facility] Urine protein/creatinine mas s ratioOrdered By: Marietta Ghosh on 07-21-2024 Protein/Creatinine (U) [Mass ratio] 98 mg/g CRE 0-200 [facility] White blood cell (WBC) count Ordered By: Marietta Ghosh on 07-21-2024 WBC (Bld) [#/Vol] 9.0 10*3/uL 4.4-11.0 [facility] Chlamydia/GC AMBER aptimaon CHLAMY,NUC ACID Negative Normal Negative [facility] Comment on above: Performed By: #### M 100.3400 #### [facility] [address] [place], [place], [address] GC BY NUC ACID Negative Normal Negative [facility] Comment on above: Result Comment: Perf ormed at: =G - [facility] [address] [id number] Promotions Manager: Cely Funk MD, Phone: [phone] Performed By: #### M 100.3400 #### [facility] [address] [place], [place], [address] Urine Cultureon 07-05-2024 [facility] Mixed Gram Pos Gram Neg Org Garrison Count 80,000-100,000 MIXC Mixed contaminants. Submit a new specimen if indicated. Normal [facility] Comment on above: Performed By: #### M 100.3400 #### [facility] [address] [place], [place], [address] Trailer Technician Office Visit Reporton 07-03-2024 Trailer Technician Office Visit Report [facility] [address], [address] [place] [address] OFFICE VISIT Date of Service: 07/03/24 MR#: [id number] Acct: [id number] Name: KAYYAZAELYE Rep #: [id number] : 2000 Provider: RACHAEL Gutiérrez ams Age/Sex: 23/F [place] [facility] [place]: Signed Intake Vital Signs 03/11/24 08:55 07/03/24 13:01 Height 5 ft 3 in 5 ft 3 in Weight: 243 lb 247 lb 6 oz BMI 43.0 43.8 BP 136/88 H 127/78 H Blood Pressure Location Lt brachial Position Sitting Pulse 78 Pulse Source Monitor Temp 98.4 F Pulse Oximetry (%) 99 Intake Visit Reasons: NOB LMP 05/02 Chief Complaint: NOB 3D Artist Required: No Is patient in pain?: No Allergies adhesive tape Allergy (Mild, Verified 07/03/24 13:04) Rash Medications ???Medication ???Instructions ???Recorded ???Confirmed ???Type multivit-min no.71-iron fum 28 300 cap PO DAILY 01/11/23 06/30/24 History mg-folate no.1 1 mg-dha 300 mg capsule (PNV-[place]) ondansetron 4 mg disintegrating 4 mg PO [...] 2 current occupational status: employed current occupation: [employer] current occupational exposures/hazards: No pets and animals: [...] physical activity do you participate in: none matt/sabianist: None seatbelt use: always do you feel safe at home: Yes additional social history: Patient works at [employer]- Works at [employer] History 4 Elective abortions Hx Para 2 Spontaneous abortions 1 Hx # Term Pregnancies 2 Ectopic pregnancies Hx # Pregnancies Multiple births # of living children 2 Past Pregnancies Del. Date Name GA/Weeks Outcome Route Bth Weight Gen Labor Lgth Anesthesia Del Locatn Provider FOB 07/20/20 Andre 37 live - full term vacuum 8# 11oz Male [facility] Myke ellison 08/20/23 Radames Elizondo 38 live - full term 7lbs 8oz Male [facility] SM Delivery Date: 07/20/20 Last Updated by: [...] -???-???-???-???-???-?? ? (more content not included)... Normal [facility] QUANTIFERON TB INCUBATED [CC L]on 06-16-2024 Mitogen minus Nil >10.00 Normal >=0.50 [facility] Comment on above: Performed By: #### [id number] #### [facility],[address] [place] [address] TB Gamma Interpretation Infection with M . tuberculosis complex is unlikely. If latent tuberculosis infec Normal [facility] Comment on above: Result Comment: [facility] [address] [place] [address] Ruben Stephenson III, M.D. [id number] Performed By: #### 2 46060 #### [facility],[address] [place], [place] [id number] TB NIL 0.00 IU/mL Normal <=8.00 [facility] Comment on above: Performed By: #### 2 40423 #### [facility],[address] [place], [place] [id number] TB Result Negative Normal [facility] Comment on above: Performed By: #### 2 64884 #### [facility],[address] [place], [place] [id number] TB1 Ag minus Nil 0.00 IU/mL Normal <0.35 [facility] Comment on above: Performed By: #### 2 21916 #### [facility],[address] [place], [place] [id number] TB2 Ag minus Nil 0.00 IU/mL Normal <0.35 [facility] Comment on above: Performed By: #### 2 84569 #### [facility],[address] [place] [address] 47519 HEP B SURFACE AG [CCL]on Hepatitis B Surf. Ag Negative Normal Negative [facility] Comment on above: Result Comment: [facility] [address] [place] [id number] Ruben Stephenson III, M.D. [id number] Performed By: #### 2 54061 #### [facility],[address] [place] [address] 23230 CBC + DIFFon 06-13-2024 Baso # 0.03 x10EE3/UL Normal 0.00 - 0.10 [facility] Comment on above: Performed By: #### 2 08381 #### [facility],[address] [place] [address] 87664 Basophils/100 WBC (Bld) 0.3 % Normal 0.0 - 2.0 [facility] Comment on above: Performed By: #### 2 68694 #### [facility],[address] [place] [address] 60072 CBC + DIFF Normal [facility] Comment on above: Result Comment: CBC- COMPLETE BLOOD COUNT Performed By: #### 2 69964 #### [facility],[address] [place] [address] 27196 EO # 0.11 x10EE3/UL Normal 0.00 - 0.50 [facility] Comment on above: Performed By: #### 2 09294 #### [facility],[address] [place] [address] 32245 Eosinophils/100 WBC (Bld) 1.1 % Normal 0.0 - 7.0 [facility] Comment on above: Performed By: #### 2 96251 #### [facility],[address] [place] [address] 50285 Erythrocyte distribution width (RBC) [Ratio] 15.5 % Normal 12.0 - 15.6 [facility] Comment on above: Performed By: #### 2 53797 #### [facility],[address] [place] [address] 65652 Hematocrit (Bld) [Volume fraction] 42.1 % Normal 34.0 - 46.0 [facility] Comment on above: Performed By: #### 2 01449 #### [facility],[address] [place] [address] 27413 Hemoglobin (Bld) [Mass/Vol] 13.9 g/dL Normal 12.0 - 16.0 [facility] Comment on above: Performed By: #### 2 89955 #### [facility],[address] [place] [address] Lymph # 2.29 x10EE3/UL Normal 0.80 - 2.80 [facility] Comment on above: Performed By: #### 2 23775 #### [facility],[address] [place], [place] [phone] Lymphocytes/100 WBC (Bld) 24.4 % Normal 20.0 - 45.0 [facility] Comment on above: Performed By: #### 2 01415 #### [facility],[address] [place] [address] 86031 MANUAL DIFF N/A Normal [facility] Comment on above: Performed By: #### 2 36864 #### [facility],[address] [place] [address] 68827 MCH (RBC) [Entitic mass] 28 pg Normal 27 - 33 [facility] Comment on above: Performed By: #### 2 55390 #### [facility],[address] [place] [address] 49085 MCHC 33 X10 3 Normal 32 - 36 [facility] Comment on above: Performed By: #### 2 10296 #### [facility],[address] [place] [address] 27638 MCV (RBC) [Entitic vol] 85 fL Normal 80 - 99 [facility] Comment on above: Performed By: #### 2 16809 #### [facility],[address] [place] [address] 73029 [place] # 0.48 x10EE3/UL Normal 0.20 - 1.00 [facility] Comment on above: Performed By: #### 2 06835 #### [facility],[address] [place] [address] 16335 MONOS % 5.1 % Normal 0.0 - 10.0 [facility] Comment on above: Performed By: #### 2 14847 #### [facility],[address] [place] [address] 32848 Morphology Armand (Bld) [Interp] N/A Normal [facility] Comment on above: Performed By: #### 2 42688 #### [facility],[address] [place] [address] 77950 Neut # 6.47 x10EE3/UL Normal 1.50 - 7.10 [facility] Comment on above: Performed By: #### 2 52529 #### [facility],[address] [place] [address] 15568 Neutrophils/100 WBC (Bld) 69.0 % Normal 46.0 - 76.0 [facility] Comment on above: Performed By: #### 2 54882 #### [facility],[address] [place] [address] 24619 PLATELET 467 x10EE3/UL High 150 - 450 [facility] Comment on above: Performed By: #### 2 35518 #### [facility],[address] [place] [address] 13570 Platelet mean volume (Bld) [Entitic vol] 8.5 fL Normal 6.6 - 10.5 [facility] Comment on above: Result Comment: AUTO MATED DIFFERENTIAL Performed By: #### 2 08196 #### [facility],[address] [place] [address] 06261 RBC 4.93 x 10EE6/UL Normal 4.10 - 5.30 [facility] Comment on above: Performed By: #### 2 14465 #### [facility],[address] [place] [address] 06932 WBC 9.4 x 10EE3/UL Normal 4.5 - 10.8 [facility] Comment on above: Performed By: #### 2 02681 #### [facility],[address] [place] [address] 95157 CMP with eGFRon 06-13-2024 AGE 23 years Normal [facility] Comment on above: Performed By: #### 2 50490 #### [facility],[address] [place] [address] 99235 Albumin [Mass/Vol] 3.8 g/dL Normal 3.4 - 5.0 [facility] Comment on above: Performed By: #### 2 07222 #### [facility],[address] [place], [place] [id number] Albumin/Globulin [Mass ratio] 1.1 {ratio} Normal 0.9 - 1.6 [facility] Comment on above: Performed By: #### 2 98730 #### [facility],[address] [place] [address] 47687 ALK PHOS 133 U/L High 46 - 116 [facility] Comment on above: Performed By: #### 2 45073 #### [facility],[address] [place] [address] 60030 ALT [Catalytic activity/Vol] 7 U/L Low 16 - 63 [facility] Comment on above: Performed By: #### 2 06721 #### [facility],[address] [place] [address] 19563 Anion gap [Moles/Vol] 9 mmol/L Low 10 - 20 [facility] Comment on above: Performed By: #### 2 89858 #### [facility],[address] [place] [address] 25093 AST [Catalytic activity/Vol] 14 U/L Normal 13 - 39 [facility] Comment on above: Performed By: #### 2 65144 #### [facility],[address] [place] [address] 49182 B/C RATIO 15 ratio Normal 0 - 30 [facility] Comment on above: Performed By: #### 2 93939 #### [facility],[address] [place] [address] 59548 Bilirubin [Mass/Vol] 0.4 mg/dL Normal 0.2 - 1.0 [facility] Comment on above: Performed By: #### 2 09454 #### [facility],[address] [place] [address] 87165 Calcium [Mass/Vol] 9.6 mg/dL Normal 8.5 - 10.1 [facility] Comment on above: Performed By: #### 2 45466 #### [facility],[address] [place] [address] 15903 Chloride [Moles/Vol] 99 mmol/L Normal 98 - 107 [facility] Comment on above: Performed By: #### 2 18728 #### [facility],[address] [place] [address] 55441 CMP with eGFR Normal [facility] Comment on above: Result Comment: COMP REHENSIVE METABOLIC PANEL Performed By: #### 2 33802 #### [facility],[address] [place] [address] 86403 CO2 [Moles/Vol] 28.4 mmol/L Normal 21.0 - 32.0 [facility] Comment on above: Performed By: #### 2 01287 #### [facility],[address] [place] [address] 37499 Creatinine [Mass/Vol] 0.73 mg/dL Normal 0.55 - 1.02 [facility] Comment on above: Performed By: #### 2 35520 #### [facility],[address] [place] [address] 75685 GFR/1.73 sq M.predicted among non-blacks MDRD (S/P/Bld) [Vol rate/Area] mL/min/{1.73_m2} Normal 60 - 999 [facility] Comment on above: Performed By: #### 2 67217 #### [facility],[address] [place], [place] [phone] Result Comment: ACCO RDING TO THE NATIONAL KIDNEY DISEASE EDUCATION PROGRAM(NKDE), A NORMAL eGFR IS A VALUE GREATER THAN OR EQUAL TO 60 ML/MIN/1.73 SQ METERS. CHRONIC KIDNEY DISEASE: <60mL/MIN/1.73 SQ METERS KIDNEY FAILURE: <15mL/MIN/1.73 SQ METERS THIS TEST SHOULD ONLY BE USED FOR PATIENTS 18 YEARS OF AGE AND OLDER. Globulin (S) [Mass/Vol] 3.6 g/dL Normal 1.5 - 3.8 [facility] Comment on above: Performed By: #### 2 19782 #### [place] [id number] Glucose [Mass/Vol] 128 mg/dL High 74 - 106 [facility] Comment on above: Performed By: #### 2 52349 #### [address] [address] Potassium [Moles/Vol] 3.9 mmol/L Normal 3.5 - 5.1 [facility] Comment on above: Performed By: #### 2 83999 #### [address] [address] Protein [Mass/Vol] 7.4 g/dL Normal 6.4 - 8.2 [facility] Comment on above: Performed By: #### 2 00097 #### [address] [address] Sodium [Moles/Vol] 132 mmol/L Low 136 - 145 [facility] Comment on above: Performed By: #### 2 92409 #### [address] [address] Urea nitrogen [Mass/Vol] 11 mg/dL Normal 7 - 18 [facility] Comment on above: Performed By: #### 2 74001 #### [facility],[address] [place] [address] 01740 LIPID PROFILEon 06-13-2024 Cholesterol [Mass/Vol] 189 mg/dL Normal 0 - 240 [facility] Comment on above: Performed By: #### 2 53682 #### [facility],[address] [place] [address] 36604 Cholesterol in HDL [Mass/Vol] 59 mg/dL Normal 40 - 60 [facility] Comment on above: Performed By: #### 2 49992 #### [facility],[address] [place] [address] 66227 Cholesterol in LDL [Mass/Vol] 111 mg/dL Normal 0 - 129 [facility] Comment on above: Performed By: #### 2 71652 #### [facility],[address] [place] [address] 84804 Cholesterol.total/[place] sterol in HDL [Mass ratio] 3.2 {ratio} Normal 0.0 - 5.0 [facility] Comment on above: Performed By: #### 2 63486 #### [facility],[address] [place] [address] 83428 Lipid 1996 panel Normal [facility] Comment on above: Result Comment: LIPI D PROFILE Performed By: #### 2 62922 #### [facility],[address] [place] [address] 34689 Triglyceride [Mass/Vol] 95 mg/dL Normal 0 - 150 [facility] Comment on above: Performed By: #### 2 99121 #### [facility],[address] [place] [address] 83137 Office Visit Reporton 2023 Office Visit Report [facility] [address] [place] [address] OFFICE VISIT Date of Service: 03/11/24 MR#: [id number] Acct: [id number] Patient: AZAEL SULTANA Rep #: [id number] : 2000 Provider: DEANA Burgess Age/Sex: 23/F Location: [facility] Status: Signed Intake Vital Signs 10/10/23 15:41 [...] mg-folate no.1 1 mg-dha 300 mg capsule (PNV-[place]sor) clotrimazole-betamethas one 1 1 applic topical BID [...] 1 current occupational status: employed current occupation: [employer] current occupational exposures/hazards: No pets and animals: [...] 1-2 times per week duration: 30-45 minutes/day matt/sabianist: None seatbelt use: always do you feel safe at home: Yes additional social history: Patient works at [employer]- Works at [email or web address] Female Reproductive History Menstrual Ab spontaneous: 1 [...] oriented x3 HENMT Head: normocephalic and atraumatic Musc Other: Neck and c spine normal ROM and nontender. Shoulders and arm non tender to palpation. Shoulders/arms ROM / strength - intact and = BL. pain elicited with ROM especially overhead reach and abduction. Culinary Manager strength normal. Coding Level of Care Code [...] her. There (more content not included)... Normal [facility] Basophil percentageOrdered B y: Marietta Ghosh on 08-21-2023 Hemoglobin (Bld) [Mass/Vol] 8.8 g/dL 12.0-15.0 [facility] WBC (Bld) [#/Vol] 11.7 10*3/uL 4.4-11.0 [facility] Determination of erythrocyte mean corpuscular volume (MCV)Ordered By: Marietta Ghosh on 08-21-2023 MCV (RBC) [Entitic vol] 87.7 fL 81-99 [facility] Erythrocyte distribution wid th ratioOrdered By: Marietta Ghosh on 08-21-2023 Erythrocyte distribution width (RBC) [Ratio] 14.7 % 11.6-14.6 [facility] Erythrocyte distribution wid th standard deviationOrdered By: Marietta Ghosh on 08-21-2023 Erythrocyte distribution width (RBC) [Entitic vol] 46.5 fL 35.1-43.9 [facility] Hematocrit Auto (Bld) [Volum e fraction]Ordered By: Marietta Ghosh on 08-21-2023 Hematocrit (Bld) [Volume fraction] 27.0 % 37-47 [facility] Laboratory - Hematology and Cell countsOrdered By: Marietta Ghosh on 08-21-2023 MCH (RBC) [Entitic mass] 28.6 pg 27.0-32.0 [facility] MCHC (RBC) [Mass/Vol] 32.6 g/dL 32-36 [facility] Platelet mean volume (Bld) [Entitic vol] 10.7 fL 6.2-12.0 [facility] Platelets (Bld) [#/Vol] 284 10*3/uL 150-450 [facility] RBC Auto (Bld) [#/Vol]Ordere d By: Marietta Ghosh on 08-21-2023 RBC (Bld) [#/Vol] 3.08 10*6/uL 4.2-5.4 [facility] Thin prep Papanicolaou smear with manual screeningOrdered By: Fadumo Zelaya on 08-21-2023 Thin prep Papanicolaou smear with manual screening 80 mg/dL 74-106 [facility] Comment on above: MANAGEMENT OF PATIEN T CARE PER NURSING PROTOCOL Absolute lymphocyte countOrd ered By: Fadumo Zelaya on 08-20-2023 Lymphocytes Auto (Unsp spec) [#/Vol] 2.62 10*3/uL 0.83-4.51 [facility] Automated lymphocyte count a s percentage of total leukocytesOrdered By: Fadumo Zelaya on 08-20-2023 Lymphocytes/100 WBC Auto (Unsp spec) 17.6 % 19-41 [facility] Basophil percentageOrdered B y: Fadumo Zelaya on 08-20-2023 Basophils/100 WBC (Bld) 0.7 % 0-1 [facility] Eosinophils/100 WBC (Bld) 0.7 % 0-5 [facility] Monocytes/100 WBC (Bld) 6.1 % 0-10 [facility] Neutrophils (Bld) [#/Vol] 10.9 10*3/uL 2.0-7.7 [facility] Neutrophils/100 WBC (Bld) 73.2 % 47-70 [facility] Immature granulocytes/100 WB C Auto (Bld)Ordered By: Fadumo Zelaya on 08-20-2023 Immature granulocytes/100 WBC (Bld) 1.700 % 0.0-0.9 [facility] Comment on above: IG% - Immature Granu locytes (promyelocytes, myelocytes and metamyelocytes) > 1% indicates that a LEFT SHIFT is Present. Laboratory - Drug toxicology Ordered By: Fadumo Zelaya on 08-20-2023 Amphetamines Ql (U) Negative <1000 ng/mL [facility] Benzodiazepines Ql (U) Negative < 200 ng/mL [facility] Cannabinoids Screen Ql (U) Positive < 50 ng/mL [facility] Cocaine Ql (U) Negative < 300 ng/mL [facility] Opiates Ql (U) Negative < 300 ng/mL [facility] Laboratory - Hematology and Cell countsOrdered By: Fadumo Zelaya on 08-20-2023 Nucleated RBC/100 WBC (Bld) [Ratio] 0 % 0-5 [facility] No Panel InformationOrdered By: Fadumo Zelaya on 08-20-2023 MDMA (Ecstasy) Screen Negative < 500 ng/mL [facility] Urine Barbiturates Screen Negative < 200 ng/mL [facility] Urine Drug Screen Comment [facility] Comment on above: CONFIRMATORY TESTING FOR ALL [...] Methadone Screen Negative < 300 ng/mL [facility] Serum Treponema species anti body detectionOrdered By: Fadumo Zelaya on 08-20-2023 Treponema sp Ab Ql (S) Non-Reactive [facility] Urine phencyclidine (PCP) de tectionOrdered By: Fadumo Zelaya on 08-20-2023 Phencyclidine Ql (U) Negative < 25 ng/mL [facility] Laboratory - Chemistry and C hemistry - challengeon 08-14-2023 Glucose Ql (U) Negative [facility] Laboratory - Urinalysison Protein Ql (U) Negative [facility] Laboratory - Chemistry and C hemistry - challengeon 08-10-2023 Glucose Ql (U) Negative [facility] Laboratory - Urinalysison Protein Ql (U) Negative [facility] Laboratory - Chemistry and C hemistry - challengeon 08-07-2023 Glucose Ql (U) Negative [facility] Laboratory - Urinalysison Protein Ql (U) Negative [facility] Neisseria gonorrhoeae genita l PCROrdered By: Marietta Ghosh on 08-07-2023 N. gonorrhoeae DNA AMBER+probe Ql (Genital specimen) [facility] No Panel InformationOrdered By: Marietta Ghosh on 08-07-2023 Chlamydia trachomatis (PCR) [facility] Laboratory - Chemistry and C hemistry - challengeon 08-03-2023 Glucose Ql (U) Negative [facility] Laboratory - Urinalysison Protein Ql (U) Negative [facility] No Panel InformationOrdered By: Marietta Ghosh on 08-03-2023 Group B Streptococcus Culture Group B Beta Streptococcus is not isolated. [facility] Specimen Comment (Misc) Not Reportable [facility] Thin prep Papanicolaou smear with manual screeningOrdered By: Marietta Ghosh on 08-03-2023 Thin prep Papanicolaou smear with manual screening Negative Negative [facility] Laboratory - Chemistry and C hemistry - challengeon 07-31-2023 Glucose Ql (U) Negative [facility] Laboratory - Urinalysison Protein Ql (U) Negative [facility] Laboratory - Chemistry and C hemistry - challengeon 07-27-2023 Glucose Ql (U) Negative [facility] Laboratory - Urinalysison Protein Ql (U) Negative [facility] No Panel InformationOrdered By: Evelin Porter on 07-25-2023 Vaginal Amniotic Fluid Detection Negative Negative [facility] Comment on above: Amniotic fluid not p resent indicates No Rupture of FetalMembranes at time of specimen collection. Culture, urineOrdered By: Jovan Ghosh on 07-24-2023 Bacteria identified Cx Nom (U) Culture exhibits no growth. [facility] Laboratory - Chemistry and C hemistry - challengeon 07-17-2023 Glucose Ql (U) Negative [facility] Laboratory - Urinalysison Protein Ql (U) Negative [facility] Laboratory - Chemistry and C hemistry - challengeon 07-06-2023 Glucose Ql (U) Negative [facility] Laboratory - Urinalysison Protein Ql (U) Negative [facility] Laboratory - Chemistry and C hemistry - challengeon 06-22-2023 Glucose Ql (U) Negative [facility] Laboratory - Urinalysison Protein Ql (U) Negative [facility] Laboratory - Chemistry and C hemistry - challengeon 06-20-2023 Glucose Ql (U) Negative [facility] Laboratory - Urinalysison Protein Ql (U) Negative [facility] Absolute lymphocyte countOrd ered By: Anisa Blackmon on 06-14-2023 Lymphocytes Auto (Unsp spec) [#/Vol] 1.82 10*3/uL 0.83-4.51 [facility] Basophil percentageOrdered B y: Anisa Blackmon on 06-14-2023 Basophils/100 WBC (Bld) 0.4 % 0-1 [facility] Eosinophils/100 WBC (Bld) 0.7 % 0-5 [facility] Neutrophils (Bld) [#/Vol] 9.1 10*3/uL 2.0-7.7 [facility] Neutrophils/100 WBC (Bld) 77.7 % 47-70 [facility] WBC (Bld) [#/Vol] 11.7 10*3/uL 4.4-11.0 [facility] Blood erythrocytes count (nu mber/volume)Ordered By: Anisa Blackmon on 06-14-2023 RBC (Bld) [#/Vol] 3.79 10*6/uL 4.2-5.4 [facility] Blood hemoglobin measurement (mass/volume)Ordered By: Anisa Blackmon on 06-14-2023 Hemoglobin (Bld) [Mass/Vol] 11.2 g/dL 12.0-15.0 [facility] Blood lymphocytes/100 leukoc ytesOrdered By: Anisa Blackmon on 06-14-2023 Lymphocytes/100 WBC (Bld) 15.6 % 19-41 [facility] Blood monocytes/100 leukocyt esOrdered By: Anisa Blackmon on 06-14-2023 Monocytes/100 WBC (Bld) 3.9 % 0-10 [facility] Blood platelet mean volumeOr dered By: Anisa Blackmon on 06-14-2023 Platelet mean volume (Bld) [Entitic vol] 10.0 fL 6.2-12.0 [facility] Determination of erythrocyte mean corpuscular volume (MCV)Ordered By: Anisa Blackmon on 06-14-2023 MCV (RBC) [Entitic vol] 93.1 fL 81-99 [facility] HIV 1 and HIV-2 antibody ass ay with HIV-1 p24 antigen detectionOrdered By: Anisa Blackmon on 06-14-2023 HIV 1+2 Ab+HIV1 p24 Ag IA Ql Non-Reactive Nonreactive [facility] Hematocrit Auto (Bld) [Volum e fraction]Ordered By: Anisa Blackmon on 06-14-2023 Hematocrit (Bld) [Volume fraction] 35.3 % 37-47 [facility] Laboratory - Hematology and Cell countsOrdered By: Anisa Blackmon on 06-14-2023 Erythrocyte distribution width (RBC) [Entitic vol] 47.8 fL 35.1-43.9 [facility] Erythrocyte distribution width (RBC) [Ratio] 14.0 % 11.6-14.6 [facility] Immature granulocytes/100 WBC (Bld) 1.700 % 0.0-0.9 [facility] Comment on above: IG% - Immature Granu locytes (promyelocytes, myelocytes and metamyelocytes) > 1% indicates that a LEFT SHIFT is Present. MCH (RBC) [Entitic mass] 29.6 pg 27.0-32.0 [facility] Nucleated RBC/100 WBC (Bld) [Ratio] 0 % 0-5 [facility] MCHC Auto (RBC) [Mass/Vol]Or dered By: Anisa Blackmon on 06-14-2023 MCHC (RBC) [Mass/Vol] 31.7 g/dL 32-36 [facility] Platelets bldOrdered By: Fidel Blackmon on 06-14-2023 Platelets (Bld) [#/Vol] 315 10*3/uL 150-450 [facility] Serum Treponema species anti body detectionOrdered By: Anisa Blackmon on 06-14-2023 Treponema sp Ab Ql (S) Non-Reactive [facility] Laboratory - Chemistry and C hemistry - challengeon 06-06-2023 Glucose Ql (U) Negative [facility] Laboratory - Urinalysison Protein Ql (U) Negative [facility] Laboratory - Chemistry and C hemistry - challengeon 05-18-2023 Glucose Ql (U) Negative [facility] Laboratory - Urinalysison Protein Ql (U) Negative [facility] Laboratory - Hematology and Cell countson 05-11-2023 HbA1c (Bld) [Mass fraction] 5.3 % 4.2-6.3 [facility] RUBEOon 05-11-2023 Rubeola IgG Ab Positive Normal [facility] [place] Comment on above: Result Comment: INTE RPRETATION [...] #### R UBIS, VARIS, HBSAB, RUBEO #### [place] [address] VARISon 05-11-[address] Positive Normal [facility] Comment on above: Result Comment: INTE RPRETATION OF VARICELLA IMMUNE STATUS IgG BY EIA: Negative: No detectable VZV IgG antibody. Positive: VZV IgG antibody Detected. If clinically indicated, order Varicella IgM to rule out recent infection. Equivocal: Equivocal for antibodies to VZV. Suggest repeat testing in 10-14 days. Performed By: #### R UBIS, VARIS, HBSAB, RUBEO #### [place] [address] RUBISon 05-10-[address] Positive Normal Positive [facility] ([place]) Comment on above: Result Comment: This immune status assay detects IgM and/or IgG antibody to Rubella. Interpret results in conjunction with clinical history. POS: Antibody detected; exposure at undetermined recent or distant time. If clinically indicated, order Rubella IGM to rule out recent infection. NEG: No antibody detected. Performed By: #### R UBIS, VARIS, HBSAB, RUBEO #### [place] [address] HBSABon 05-09-2023 Hep B Surf Ab 8.8 mIU/mL Low >=10.0 [facility] ([place]) Comment on above: Result Comment: 0 to [...] #### R UBIS, VARIS, HBSAB, RUBEO #### [place] [address] Chlamydia trachomatis rRNA d etection by probe and target amplification methodOrdered By: Fadumo Zelaya on 03-23-2023 C. trachomatis rRNA AMBER+probe Ql (Unsp spec) Negative Negative [facility] Laboratory - Chemistry and C hemistry - challengeon 03-23-2023 Glucose Ql (U) Negative [facility] Laboratory - Microbiology an d Antimicrobial susceptibilityOrdered By: Fadumo Zelaya on 03-23-2023 N. gonorrhoeae DNA AMBER+probe Ql (Unsp spec) Negative Negative [facility] Comment on above: Performed at: =[address] [id number] Director: Cely Funk MD, Phone: [phone] Laboratory - Urinalysison Protein Ql (U) Negative [facility] Laboratory - Chemistry and C hemistry - challengeon 02-23-2023 Glucose Ql (U) 500 g/dL [facility] Laboratory - Urinalysison Protein Ql (U) Negative [facility] Laboratory - Hematology and Cell countson 02-13-2023 HbA1c (Bld) [Mass fraction] 5.6 % 4.2-6.3 [facility] Absolute lymphocyte countOrd ered By: Evelin Porter on 02-08-2023 Lymphocytes Auto (Unsp spec) [#/Vol] 2.10 10*3/uL 0.83-4.51 [facility] Basophil percentageOrdered B y: Evelin Porter on 02-08-2023 Basophils/100 WBC (Bld) 0.4 % 0-1 [facility] Bilirubin [Mass/Vol] 0.20 mg/dL 0.20-1.00 [facility] Comment on above: For patients on eltr ombopag therapy, use of Dimension [place] TBIL is not recommended. Chloride [Moles/Vol] 105 mmol/L 98-107 [facility] Eosinophils/100 WBC (Bld) 0.6 % 0-5 [facility] Glucose [Mass/Vol] 187 mg/dL 74-106 [facility] Comment on above: Fasting Glucose resu lt greater than or equal to 126 mg/dL suggests DIABETES MELLITUS per A.D.A. criteria. Neutrophils (Bld) [#/Vol] 9.1 10*3/uL 2.0-7.7 [facility] Neutrophils/100 WBC (Bld) 77.0 % 47-70 [facility] Potassium [Moles/Vol] 3.8 mmol/L 3.5-5.1 [facility] Protein [Mass/Vol] 7.3 g/dL 6.4-8.2 [facility] Sodium [Moles/Vol] 136 mmol/L 136-145 [facility] WBC (Bld) [#/Vol] 11.8 10*3/uL 4.4-11.0 [facility] Blood erythrocytes count (nu mber/volume)Ordered By: Evelin Porter on 02-08-2023 RBC (Bld) [#/Vol] 4.25 10*6/uL 4.2-5.4 [facility] Blood hemoglobin measurement (mass/volume)Ordered By: Evelin Porter on 02-08-2023 Hemoglobin (Bld) [Mass/Vol] 12.5 g/dL 12.0-15.0 [facility] Blood lymphocytes/100 leukoc ytesOrdered By: Evelin Porter on 02-08-2023 Lymphocytes/100 WBC (Bld) 17.8 % 19-41 [facility] Blood monocytes/100 leukocyt esOrdered By: Evelin Porter on 02-08-2023 Monocytes/100 WBC (Bld) 3.4 % 0-10 [facility] Blood platelet mean volumeOr dered By: Evelin Porter on 02-08-2023 Platelet mean volume (Bld) [Entitic vol] 9.6 fL 6.2-12.0 [facility] Determination of erythrocyte mean corpuscular volume (MCV)Ordered By: Evelin Porter on 02-08-2023 MCV (RBC) [Entitic vol] 89.9 fL 81-99 [facility] Gestational diabetes screen 1-hour screen with 50g oral glucose loadOrdered By: Evelin Porter on 02-08-2023 Glucose 1 Hr post 50 g glucose PO [Mass/Vol] 187 mg/dL 70-140 [facility] HIV 1 and HIV-2 antibody ass ay with HIV-1 p24 antigen detectionOrdered By: Evelin Porter on 02-08-2023 HIV 1+2 Ab+HIV1 p24 Ag IA Ql Non-Reactive Nonreactive [facility] Hematocrit Auto (Bld) [Volum e fraction]Ordered By: Evelin Porter on 02-08-2023 Hematocrit (Bld) [Volume fraction] 38.2 % 37-47 [facility] Laboratory - Chemistry and C hemistry - challengeOrdered By: Evelin Porter on 02-08-2023 ALP [Catalytic activity/Vol] 92 U/L 45-117 [facility] ALT [Catalytic activity/Vol] U/L 13-56 [facility] CO2 [Moles/Vol] 24.0 mmol/L 21.0-32.0 [facility] Globulin (S) [Mass/Vol] 4.3 g/dL 2.2-4.2 [facility] Urea nitrogen/Creatinine [Mass ratio] 13.9 mg/mg 10-20 [facility] Laboratory - Hematology and Cell countsOrdered By: Evelin Porter on 02-08-2023 Erythrocyte distribution width (RBC) [Entitic vol] 47.7 fL 35.1-43.9 [facility] Erythrocyte distribution width (RBC) [Ratio] 14.5 % 11.6-14.6 [facility] Immature granulocytes/100 WBC (Bld) 0.800 % 0.0-0.9 [facility] Comment on above: IG% - Immature Granu locytes (promyelocytes, myelocytes and metamyelocytes) > 1% indicates that a LEFT SHIFT is Present. MCH (RBC) [Entitic mass] 29.4 pg 27.0-32.0 [facility] Nucleated RBC/100 WBC (Bld) [Ratio] 0 % 0-5 [facility] MCHC Auto (RBC) [Mass/Vol]Or dered By: Evelin Porter on 02-08-2023 MCHC (RBC) [Mass/Vol] 32.7 g/dL 32-36 [facility] No Panel InformationOrdered By: Evelin Porter on 02-08-2023 Estimated GFR (MDRD) Amer 168 mL/min >60 [facility] Comment on above: GFR Calc Estimated GFR (MDRD) Non-Af Amer 139 mL/min >60 [facility] Comment on above: Non- GFR Calc Hepatitis B Surface Antigen Non-Reactive Nonreactive [facility] Hepatitis C Antibody Non-Reactive Nonreactive [facility] Comment on above: Non Reactive: < 0.8 Equivocal: >/= 0.8 to < 1.0 Reactive: >/= 1.0The CDC recommends that a reactive/equivocal HCV antibody result be followed up by the HCV Nucleic Acid Amplificationtest (611265) Miscellaneous Test Comment MAILED SPECIMEN [facility] Rubella IgG Antibody Reactive Nonreactive [facility] Comment on above: Antibody Results Int erpretation of Immune Status Non Reactive Presumed Non-Immune Equivocal Equivocal Reactive Presumed Immune Platelets bldOrdered By: Gladis Porter on 02-08-2023 Platelets (Bld) [#/Vol] 375 10*3/uL 150-450 [facility] Serum Treponema species anti body detectionOrdered By: Evelin Porter on 02-08-2023 Treponema sp Ab Ql (S) Non-Reactive [facility] Serum or plasma albumin jose cruz urement (mass/volume)Ordered By: Evelin Porter on 02-08-2023 Albumin [Mass/Vol] 3.0 g/dL 3.2-5.0 [facility] Serum or plasma albumin/glob ulin mass ratioOrdered By: Evelin Porter on 02-08-2023 Albumin/Globulin [Mass ratio] 0.7 {ratio} 0.9-2.4 [facility] Serum or plasma calcium jose cruz urement (mass/volume)Ordered By: Evelin Porter on 02-08-2023 Calcium [Mass/Vol] 9.1 mg/dL 8.5-10.1 [facility] Serum or plasma creatinine m easurement (mass/volume)Ordered By: Evelin Porter on 02-08-2023 Creatinine [Mass/Vol] 0.58 mg/dL 0.55-1.02 [facility] Comment on above: The validity of the calculated GFR & GFRAA in patients over 70 years has not been determined. Clinical correlation is essential. Serum or plasma urea nitroge n measurement (mass/volume)Ordered By: Evelin Porter on 02-08-2023 Urea nitrogen [Mass/Vol] 8 mg/dL 7-18 [facility] Thin prep Papanicolaou smear with manual screeningOrdered By: Evelin Porter on 02-08-2023 Thin prep Papanicolaou smear with manual screening 9 U/L 15-37 [facility] Thin prep Papanicolaou smear with manual screening 7 5-15 [facility] Cervical or vagninal specime n microscopic examination by cytology stain (reported asOrdered By: Evelin Porter on 01-25-2023 Cytology report Cyto stain Doc (Cvx/Vag) Comment . [facility] Comment on above: The Pap smear is [...] rRNA AMBER+probe Ql (Unsp spec) Positive Negative [facility] Culture, urineOrdered By: Davi Porter on 01-25-2023 Bacteria identified Cx Nom (U) Positive [facility] Detection in cervical specim en of any of human papilloma virus (HPV) 16, 18, 31, 33,Ordered By: Evelin Porter on 01-25-2023 HPV 16+18+31+33+35+39+45+51 +52+56+58+59+66+68 DNA Probe+sig amp Ql (Cvx) Negative Negative [facility] Comment on above: This nucleic acid am plification test detects fourteen high-risk HPV types (16,18,31,33,35,39,45,51,52,56,58,59,66,68)without differentiation. Laboratory - CytologyOrdered By: Evelin Porter on 01-25-2023 Compress Machine Operator Cyto stain Nom (Cvx/Vag) [ID] Comment . [facility] Comment on above: Guillermo Coates totechnologist (ASCP) Laboratory - Drug toxicology Ordered By: Evelin Porter on 01-25-2023 Amphetamines Ql (U) Negative <1000 ng/mL [facility] Benzodiazepines Ql (U) Negative < 200 ng/mL [facility] Cannabinoids Screen Ql (U) Positive < 50 ng/mL [facility] Cocaine Ql (U) Negative < 300 ng/mL [facility] Opiates Ql (U) Negative < 300 ng/mL [facility] Laboratory - Microbiology an d Antimicrobial susceptibilityOrdered By: Evelin Porter on 01-25-2023 N. gonorrhoeae DNA AMBER+probe Ql (Unsp spec) Negative Negative [facility] Comment on above: Performed at: =G - [address] [id number] Director: Cely Funk MD, Phone: [phone] Laboratory - Miscellaneous t estsOrdered By: Evelin Porter on 01-25-2023 Service comment (Unsp spec) [Interp] Comment . [facility] Comment on above: This liquid based Th inPrep(R) pap test was screened withthe use of an image guided system. Service comment (Unsp spec) [Interp] . . [facility] Liquid-based cerv Pap + CT/G C by AMBER w reflex to high-risk HPV for ASCUSOrdered By: Evelin Porter on 01-25-2023 Cytology report Cyto stain.thin prep Doc (Cvx/Vag) Comment . [facility] Comment on above: Criteria not met, HP V Genotype not performed.Performed at: - [address] [id number] Director: Cely Funk MD, Phone: [phone] at: = - Lab[address] [place] [id number] Director: Cely Funk MD, Phone: [phone] No Panel InformationOrdered By: Evelin Porter on 01-25-2023 MDMA (Ecstasy) Screen Negative < 500 ng/mL [facility] Pathology report final diagnosis Narrative Comment . [facility] Comment on above: NEGATIVE FOR INTRAEP ITHELIAL LESION OR MALIGNANCY. Urine Barbiturates Screen Negative < 200 ng/mL [facility] Urine Drug Screen Comment [facility] Comment on above: CONFIRMATORY TESTING FOR ALL [...] Urine Methadone Screen Negative < 300 ng/mL [facility] Urine creatinine measurement (mass/volume)Ordered By: Evelin Porter on 01-25-2023 Creatinine (U) [Mass/Vol] 344.00 mg/dL NO RANGE EST. [facility] Urine phencyclidine (PCP) de tectionOrdered By: Evelin Porter on 01-25-2023 Phencyclidine Ql (U) Negative < 25 ng/mL [facility] Urine protein measurement (m ass/volume)Ordered By: Evelin Porter on 01-25-2023 Protein (U) [Mass/Vol] 44.5 mg/dL 0.0-11.8 [facility] Urine protein/creatinine mas s ratioOrdered By: Evelin Porter on 01-25-2023 Protein/Creatinine (U) [Mass ratio] 129 mg/g CRE 0-200 [facility] CBCon 04-02-2017 Erythrocyte distribution width Auto Ratio (RBC) 13.0 % Normal 11-14.5 [facility] Comment on above: Performed By: #### L 200.37189 ####[facility] [id number] [place], [place] [address]Yc# [phone] Erythrocytes (RBC) 0.0 % Normal Less than 1 [facility] Comment on above: Performed By: #### L 200.65689 ####[facility] [id number] [place], [place] [address]Xe# [phone] Erythrocytes (RBC) 4.40 M/CU MM Normal 3.90-5.30 [facility] Comment on above: Performed By: #### L 200.55113 ####[facility] [id number] [place] [address]Rm# [phone] Hematocrit (HCT) 38.7 % Normal 35.0-47.0 [facility] Comment on above: Performed By: #### L 200.17311 ####[address] [address]Bg# [phone] Hemoglobin mass conc (Bld) 13.1 g/dL Normal 11.5-15.5 [facility] Comment on above: Performed By: #### L 200.46174 ####[facility] [id number] [place] [address]Yc# [phone] MCHC mass conc (RBC) 33.9 g/dL Normal 32.0-36.0 [facility] Comment on above: Performed By: #### L 200.09686 ####[facility] [id number] [place] [address]Lb# [phone] MCV 88.0 fL Normal 80.0-99.0 [facility] Comment on above: Performed By: #### L 200.47769 ####[facility] [id number] [place] [address]Au# [phone] Platelet mean volume (PMV) 10.2 fL Normal 9.4-12.4 [facility] Comment on above: Performed By: #### L 200.27184 ####[facility] [id number] [place] [address]Au# [phone] Platelets 364 K/CU MM Normal 150-450 [facility] Comment on above: Performed By: #### L 200.95027 ####[facility] [id number] [place], [place] [address]Fg# [phone] WBC (Leukocytes) 9.9 K/CU MM Normal 4.5-11.0 [facility] Comment on above: Performed By: #### L 200.78224 ####[facility] [id number] [place], [place] [address]Ro# [phone] CMPon 04-02-2017 Alanine aminotransferase (ALT) 11 U/L Low 13-61 [facility] Comment on above: Performed By: #### L 500.86540, L500.93277 ####[facility] [id number] [place], [place] [address]Aa# [phone] Albumin 3.9 g/dL Normal 3.2-5.0 [facility] Comment on above: Performed By: #### L 500.52628, L500.80246 ####[facility] [id number] [place], [place] [address]Vu# [phone] Albumin/Globulin Ratio 1.1 {ratio} Normal 0.8-2.0 [facility] Comment on above: Performed By: #### L 500.06337, L500.21897 ####[facility] [id number] [place], [place] [address]Vm# [phone] ALK PHOS 160 U/L High 45-117 [facility] Comment on above: Performed By: #### L 500.78972, L500.74449 ####[facility] [id number] [place], [place] [address]Bt# [phone] Anion gap 8 mmol/L Normal 5-16 [facility] Comment on above: Performed By: #### L 500.24952, L500.52632 ####[facility] [id number] [place], [place] [address]As# [phone] BILI TOTAL 0.3 MG/DL Normal 0.2-1.0 [facility] Comment on above: Performed By: #### L 500.63850, L500.19168 ####[facility] [id number] [place], [place] [address]Bo# [phone] BUN/Creatinine Ratio 13 mg/mg Low 15-24 [facility] Comment on above: Performed By: #### L 500.81140, L500.03206 ####[facility] [id number] [place], [place] [address]Dt# [phone] Calcium 9.3 mg/dL Normal 8.5-10.1 [facility] Comment on above: Performed By: #### L 500.82436, L500.85305 ####[facility] [id number] [place], [place] [address]Xd# [phone] Chloride 106 mmol/L Normal 98-107 [facility] Comment on above: Performed By: #### L 500.55853, L500.72821 ####[facility] [id number] [place] [address]Qm# [phone] CO2 24 mmol/L Normal 21-32 [facility] Comment on above: Performed By: #### L 500.07580, L500.52752 ####[facility] [id number] [place], [place] [address]He# [phone] Creatinine 0.957 mg/dL High 0.510-0.950 [facility] Comment on above: Result Comment: Marlyn ents receiving either N-Acetylcysteine (NAC) orMetamizole prior to venipuncture, may have falsely depressedresults. Performed By: #### L 500.56934, L500.33822 ####[facility] [id number] [place], [place] [address]Zg# [phone] Globulin 3.4 g/dL Normal 2.2-4.2 [facility] Comment on above: Performed By: #### L 500.43366, L500.79405 ####[facility] [id number] [place], [place] [address]Bb# [phone] Glucose mass conc 76 mg/dL Normal 70-100 [facility] Comment on above: Result Comment: 70-1 00-Normal Fasting; [phone] Fasting; greaterthan 126 on more than one result-Diabetes. ADA guidelines Performed By: #### L 500.48104, L500.79448 ####[facility] [id number] [place], [place] [address]It# [phone] Potassium molar conc 4.2 mmol/L Normal 3.5-5.1 [facility] Comment on above: Performed By: #### L 500.43812, L500.03019 ####[facility] [id number] [place], [place] [address]Ik# [phone] Protein 7.3 g/dL Normal 6.0-8.5 [facility] Comment on above: Performed By: #### L 500.82995, L500.69190 ####[facility] [id number] [place], [place] [address]Iu# [phone] SGOT (AST) 10 U/L Normal 8-34 [facility] Comment on above: Performed By: #### L 500.50570, L500.08794 ####[facility] [id number] [place], [place] [address]Lq# [phone] Sodium 138 mmol/L Normal 136-145 [facility] Comment on above: Performed By: #### L 500.52389, L500.00508 ####[facility] [id number] [place], [place] [address]Wi# [phone] Urea nitrogen 12 mg/dL Normal 7-26 [facility] Comment on above: Performed By: #### L 500.03485, L500.17322 ####[facility] [id number] [place], [place] [address]Cz# [phone] TSHon 04-02-2017 Thyroid stimulating hormone (TSH) 1.350 UIU/ML Normal 0.438-3.980 [facility] Comment on above: Result Comment: 3rd generation ultra sensitive TSH Performed By: #### L 500.96619, L500.49223 ####[facility] [id number] [place], [place] [address]Kz# [phone] UR DRUG ABUSEon 04-02-2017 UR AMPH Negative Normal Mafbud=5493 [facility] Comment on above: Performed By: #### L 600.54714 ####[facility] [id number] [place] [address]Az# [phone] UR SAGRARIO Negative Normal Savtym=549 [facility] Comment on above: Performed By: #### L 600.92829 ####[facility] [id number] [place] [address]Fg# [phone] UR LULU Negative Normal Pyfuds=257 [facility] Comment on above: Performed By: #### L 600.96855 ####[facility] [id number] [place] [address]Bm# [phone] UR ADRIANNE/THC Negative Normal Cutoff=50 [facility] Comment on above: Performed By: #### L 600.89340 ####[facility] [id number] [place] [address]Cn# [phone] UR TIP Negative Normal Xybhju=487 [facility] Comment on above: Performed By: #### L 600.37937 ####[facility] [id number] [place] [address]Rg# [phone] UR OPIAT Negative Normal Qpbxsg=204 [facility] Comment on above: Performed By: #### L 600.21484 ####[facility] [id number] [place] [address]Sy# [phone] UR PCP Negative Normal Cutoff=25 [facility] Comment on above: Performed By: #### L 600.24181 ####[facility] [id number] [place] [address]Hg# [phone] DRAB COMMENT Normal [facility] Comment on above: Result Comment: [facility] [employer] [facility] results are qualitative, providing apreliminary analytical result. A positive result for anassay should be confirmed by another nonimmunological,reference method. A negative result indicates that theassay material is either not present, or present at levelsbelow the cutoff threshold for the analytical method range(AMR) validation. Performed By: #### L 600.16272 ####[facility] [id number] [place], [place] [address]Ot# [phone] Vital Signs Date Time Vital Sign Value Performing Clinician Faci lity 01-29-2025 15:02-0400 Body height 160.02 cm Bird Ruiz INSPECTING MACHINE ADJUSTER-C Work Phone: [facility] 01-29-2025 15:02-0400 Body mass index (BMI) [Ratio] 48.4 kg/m2 Bird Ruiz INSPECTING MACHINE ADJUSTER-C Work Phone: [facility] 01-29-2025 15:02-0400 Body weight 124 kg Bird Ruiz INSPECTING MACHINE ADJUSTER-C Work Phone: [facility] 01-29-2025 15:02-0400 Diastolic blood pressure 79 mm[Hg] Bird Ruiz INSPECTING MACHINE ADJUSTER-C Work Phone: [facility] 01-29-2025 15:02-0400 Systolic blood pressure 134 mm[Hg] Bird Ruiz INSPECTING MACHINE ADJUSTER-C Work Phone: [facility] 01-22-2025 14:48-0400 Body height 160.02 cm Bird Ruiz INSPECTING MACHINE ADJUSTER-C Work Phone: [facility] 01-22-2025 14:48-0400 Body mass index (BMI) [Ratio] 48.4 kg/m2 Bird Ruiz INSPECTING MACHINE ADJUSTER-C Work Phone: [facility] 01-22-2025 14:48-0400 Body weight 124 kg Bird Ruiz INSPECTING MACHINE ADJUSTER-C Work Phone: [facility] 01-22-2025 14:48-0400 Diastolic blood pressure 84 mm[Hg] Bird Ruiz INSPECTING MACHINE ADJUSTER-C Work Phone: [facility] 01-22-2025 14:48-0400 Systolic blood pressure 125 mm[Hg] Bird Ruiz INSPECTING MACHINE ADJUSTER-C Work Phone: [facility] 01-16-2025 16:07-0400 Body height 160.02 cm Bird Ruiz INSPECTING MACHINE ADJUSTER-C Work Phone: [facility] 01-16-2025 16:03-0400 Body mass index (BMI) [Ratio] 48.2 kg/m2 Bird Ruiz INSPECTING MACHINE ADJUSTER-C Work Phone: [facility] 01-16-2025 16:03-0400 Body weight 123.43 kg Bird Ruiz INSPECTING MACHINE ADJUSTER-C Work Phone: [facility] 01-16-2025 16:03-0400 Diastolic blood pressure 83 mm[Hg] Bird Ruiz INSPECTING MACHINE ADJUSTER-C Work Phone: [facility] 01-16-2025 16:03-0400 Systolic blood pressure 121 mm[Hg] Bird Ruiz INSPECTING MACHINE ADJUSTER-C Work Phone: [facility] 01-13-2025 19:19-0400 Body height 160.02 cm Bird Ruiz INSPECTING MACHINE ADJUSTER-C Work Phone: [facility] 01-13-2025 19:19-0400 Body mass index (BMI) [Ratio] 48.5 kg/m2 Bird Ruiz INSPECTING MACHINE ADJUSTER-C Work Phone: [facility] 01-13-2025 19:19-0400 Body weight 124.28 kg Bird Ruiz INSPECTING MACHINE ADJUSTER-C Work Phone: [facility] 01-13-2025 19:17-0400 Body temperature 97.6 [degF] Bird Ruiz INSPECTING MACHINE ADJUSTER-C Work Phone: [facility] 01-13-2025 19:17-0400 Diastolic blood pressure 66 mm[Hg] Bird Ruiz INSPECTING MACHINE ADJUSTER-C Work Phone: [facility] 01-13-2025 19:17-0400 Heart rate 86 /min Bird Ruiz INSPECTING MACHINE ADJUSTER-C Work Phone: [facility] 01-13-2025 19:17-0400 Respiratory rate 16 /min Bird Ruiz INSPECTING MACHINE ADJUSTER-C Work Phone: [facility] 01-13-2025 19:17-0400 Systolic blood pressure 128 mm[Hg] Bird Ruiz INSPECTING MACHINE ADJUSTER-C Work Phone: [facility] 01-08-2025 15:50-0400 Diastolic blood pressure 74 mm[Hg] Bird Ruiz INSPECTING MACHINE ADJUSTER-C Work Phone: [facility] 01-08-2025 15:50-0400 Heart rate 76 /min Bird Ruiz INSPECTING MACHINE ADJUSTER-C Work Phone: [facility] 01-08-2025 15:50-0400 Systolic blood pressure 135 mm[Hg] Bird Ruiz INSPECTING MACHINE ADJUSTER-C Work Phone: [facility] 01-08-2025 14:35-0400 SaO2% (BldA) [Mass fraction] 98 % Bird Ruiz INSPECTING MACHINE ADJUSTER-C Work Phone: [facility] 01-08-2025 14:30-0400 Body height 160.02 cm Bird Ruiz INSPECTING MACHINE ADJUSTER-C Work Phone: [facility] 01-08-2025 14:30-0400 Body mass index (BMI) [Ratio] 47.9 kg/m2 Bird Ruiz INSPECTING MACHINE ADJUSTER-C Work Phone: [facility] 01-08-2025 14:30-0400 Body temperature 96.9 [degF] Bird Riuz INSPECTING MACHINE ADJUSTER-C Work Phone: [facility] 01-08-2025 14:30-0400 Body weight 122.9 kg Bird Ruiz INSPECTING MACHINE ADJUSTER-C Work Phone: [facility] 01-08-2025 14:30-0400 Respiratory rate 16 /min Bird Ruiz INSPECTING MACHINE ADJUSTER-C Work Phone: [facility] 01-08-2025 13:57-0400 Body height 160.02 cm Bird Ruiz INSPECTING MACHINE ADJUSTER-C Work Phone: [facility] 01-08-2025 13:50-0400 Body mass index (BMI) [Ratio] 48 kg/m2 Bird Ruiz INSPECTING MACHINE ADJUSTER-C Work Phone: [facility] 01-08-2025 13:50-0400 Body weight 123.03 kg Bird Ruiz INSPECTING MACHINE ADJUSTER-C Work Phone: [facility] 01-08-2025 13:50-0400 Diastolic blood pressure 82 mm[Hg] Bird Ruiz INSPECTING MACHINE ADJUSTER-C Work Phone: [facility] 01-08-2025 13:50-0400 Systolic blood pressure 140 mm[Hg] Bird Ruiz INSPECTING MACHINE ADJUSTER-C Work Phone: [facility] 12-26-2024 14:28-0400 Body height 160.02 cm Bird Ruiz INSPECTING MACHINE ADJUSTER-C Work Phone: [facility] 12-26-2024 14:26-0400 Body mass index (BMI) [Ratio] 46.8 kg/m2 Bird Ruiz INSPECTING MACHINE ADJUSTER-C Work Phone: [facility] 12-26-2024 14:26-0400 Body weight 119.91 kg Bird Ruiz INSPECTING MACHINE ADJUSTER-C Work Phone: [facility] 12-26-2024 14:26-0400 Diastolic blood pressure 82 mm[Hg] Bird Ruiz INSPECTING MACHINE ADJUSTER-C Work Phone: [facility] 12-26-2024 14:26-0400 Systolic blood pressure 138 mm[Hg] Bird Ruiz INSPECTING MACHINE ADJUSTER-C Work Phone: [facility] 12-16-2024 10:39-0400 Body height 160.02 cm Bird Ruiz INSPECTING MACHINE ADJUSTER-C Work Phone: [facility] 12-16-2024 10:39-0400 Body mass index (BMI) [Ratio] 47.2 kg/m2 Bird Ruiz INSPECTING MACHINE ADJUSTER-C Work Phone: [facility] 12-16-2024 10:39-0400 Body weight 121.1 kg Bird Ruiz INSPECTING MACHINE ADJUSTER-C Work Phone: [facility] 12-16-2024 10:39-0400 Diastolic blood pressure 77 mm[Hg] Bird Ruiz INSPECTING MACHINE ADJUSTER-C Work Phone: [facility] 12-16-2024 10:39-0400 Heart rate 88 /min Bird Ruiz INSPECTING MACHINE ADJUSTER-C Work Phone: [facility] 12-16-2024 10:39-0400 SaO2% (BldA) [Mass fraction] 97 % Bird Ruiz INSPECTING MACHINE ADJUSTER-C Work Phone: [facility] 12-16-2024 10:39-0400 Systolic blood pressure 120 mm[Hg] Bird Ruiz INSPECTING MACHINE ADJUSTER-C Work Phone: [facility] 12-11-2024 15:58-0400 Body height 160.02 cm Bird Ruiz INSPECTING MACHINE ADJUSTER-C Work Phone: [facility] 12-11-2024 15:51-0400 Body mass index (BMI) [Ratio] 46.6 kg/m2 Bird Ruiz INSPECTING MACHINE ADJUSTER-C Work Phone: [facility] 12-11-2024 15:51-0400 Body weight 119.4 kg Bird Ruiz INSPECTING MACHINE ADJUSTER-C Work Phone: [facility] 12-11-2024 15:51-0400 Diastolic blood pressure 78 mm[Hg] Bird Ruiz INSPECTING MACHINE ADJUSTER-C Work Phone: [facility] 12-11-2024 15:51-0400 Systolic blood pressure 124 mm[Hg] Bird Ruiz INSPECTING MACHINE ADJUSTER-C Work Phone: [facility] 11-11-2024 15:03-0400 Body height 160.02 cm Bird Ruiz INSPECTING MACHINE ADJUSTER-C Work Phone: [facility] 11-11-2024 15:03-0400 Body mass index (BMI) [Ratio] 46.3 kg/m2 Bird Ruiz INSPECTING MACHINE ADJUSTER-C Work Phone: [facility] 11-11-2024 15:03-0400 Body weight 118.61 kg Bird Ruiz INSPECTING MACHINE ADJUSTER-C Work Phone: [facility] 11-11-2024 15:03-0400 Diastolic blood pressure 82 mm[Hg] Bird Ruiz INSPECTING MACHINE ADJUSTER-C Work Phone: [facility] 11-11-2024 15:03-0400 Systolic blood pressure 120 mm[Hg] Bird Ruiz INSPECTING MACHINE ADJUSTER-C Work Phone: [facility] 10-31-2024 14:10-0400 Body mass index (BMI) [Ratio] 46.7 kg/m2 Bird Ruiz INSPECTING MACHINE ADJUSTER-C Work Phone: [facility] 10-31-2024 14:10-0400 Body weight 119.86 kg Bird Ruiz INSPECTING MACHINE ADJUSTER-C Work Phone: [facility] 10-31-2024 14:10-0400 Diastolic blood pressure 84 mm[Hg] Bird Ruiz INSPECTING MACHINE ADJUSTER-C Work Phone: [facility] 10-31-2024 14:10-0400 Systolic blood pressure 129 mm[Hg] Bird Ruiz INSPECTING MACHINE ADJUSTER-C Work Phone: [facility] 10-02-2024 15:00-0400 Body mass index (BMI) [Ratio] 45.7 kg/m2 Bird Ruiz INSPECTING MACHINE ADJUSTER-C Work Phone: [facility] 10-02-2024 15:00-0400 Body weight 117.08 kg Bird Ruiz INSPECTING MACHINE ADJUSTER-C Work Phone: [facility] 10-02-2024 15:00-0400 Diastolic blood pressure 82 mm[Hg] Bird Ruiz INSPECTING MACHINE ADJUSTER-C Work Phone: [phone](012)[phone] [place] [address] 10-02-2024 15:00-0400 Systolic blood pressure 122 mm[Hg] Bird Ruiz INSPECTING MACHINE ADJUSTER-C Work Phone: 8(299)[phone] [place] [address] 08-27-2024 15:30-0500 Body mass index (BMI) [Ratio] 45.2 kg/m2 Bird Ruiz INSPECTING MACHINE ADJUSTER-C Work Phone: 5([phone] [place] [address] 08-27-2024 15:30-0500 Body weight 115.77 kg Bird Ruiz INSPECTING MACHINE ADJUSTER-C Work Phone: 4(109)[phone] [place] [address] 08-27-2024 15:30-0500 Diastolic blood pressure 82 mm[Hg] Bird Ruiz INSPECTING MACHINE ADJUSTER-C Work Phone: 4(254)[phone] [place] [address] 08-27-2024 15:30-0500 Systolic blood pressure 135 mm[Hg] Bird Ruiz INSPECTING MACHINE ADJUSTER-C Work Phone: 1(606)[phone] [place] [address] 08-01-2024 11:40-0500 Body mass index (BMI) [Ratio] 44.3 kg/m2 Bird Ruiz INSPECTING MACHINE ADJUSTER-C Work Phone: [facility] 08-01-2024 11:40-0500 Body weight 113.56 kg Bird Ruiz INSPECTING MACHINE ADJUSTER-C Work Phone: [facility] 08-01-2024 11:40-0500 Diastolic blood pressure 83 mm[Hg] Bird Ruiz INSPECTING MACHINE ADJUSTER-C Work Phone: [facility] 08-01-2024 11:40-0500 Systolic blood pressure 124 mm[Hg] Bird Ruiz INSPECTING MACHINE ADJUSTER-C Work Phone: [facility] 08-22-2023 08:42-0500 Body temperature 97.4 [degF] INSPECTING MACHINE ADJUSTER-C Bird Ruiz INSPECTING MACHINE ADJUSTER Work Phone: [facility] 08-22-2023 08:42-0500 Diastolic blood pressure 70 mm[Hg] INSPECTING MACHINE ADJUSTER-C Bird Ruiz INSPECTING MACHINE ADJUSTER Work Phone: [facility] 08-22-2023 08:42-0500 Heart rate 93 /min INSPECTING MACHINE ADJUSTER-Holden Ruiz INSPECTING MACHINE ADJUSTER Work Phone: [facility] 08-22-2023 08:42-0500 Respiratory rate 16 /min INSPECTING MACHINE ADJUSTER-C Bird Ruiz INSPECTING MACHINE ADJUSTER Work Phone: [facility] 08-22-2023 08:42-0500 SaO2% (BldA) [Mass fraction] 98 % INSPECTING MACHINE ADJUSTER-Holden Ruiz INSPECTING MACHINE ADJUSTER Work Phone: [facility] 08-22-2023 08:42-0500 Systolic blood pressure 124 mm[Hg] INSPECTING MACHINE ADJUSTER-C Bird Ruiz INSPECTING MACHINE ADJUSTER Work Phone: [facility] 08-20-2023 06:16-0500 Body height 160.02 cm INSPECTING MACHINE ADJUSTER-Holden Ruiz INSPECTING MACHINE ADJUSTER Work Phone: [facility] 08-20-2023 06:16-0500 Body mass index (BMI) [Ratio] 47.9 kg/m2 INSPECTING MACHINE ADJUSTER-Holden Ruiz INSPECTING MACHINE ADJUSTER Work Phone: [facility] 08-20-2023 06:16-0500 Body weight 122.74 kg INSPECTING MACHINE ADJUSTER-Holden Ruiz INSPECTING MACHINE ADJUSTER Work Phone: [facility] 08-14-2023 11:12-0500 Body mass index (BMI) [Ratio] 47.3 kg/m2 INSPECTING MACHINE ADJUSTER-Holden Ruiz INSPECTING MACHINE ADJUSTER Work Phone: [facility] 08-14-2023 11:12-0500 Body weight 121.16 kg INSPECTING MACHINE ADJUSTER-Holden Ruiz INSPECTING MACHINE ADJUSTER Work Phone: [facility] 08-14-2023 11:12-0500 Diastolic blood pressure 79 mm[Hg] PARMINDER-Holden Ruiz INSPECTING MACHINE ADJUSTER Work Phone: [facility] 08-14-2023 11:12-0500 Systolic blood pressure 124 mm[Hg] MING Ruiz INSPECTING MACHINE ADJUSTER Work Phone: [facility] 08-10-2023 14:17-0500 Body height 160.02 cm PARMINDER-Holden Ruiz INSPECTING MACHINE ADJUSTER Work Phone: [facility] 08-10-2023 14:17-0500 Body mass index (BMI) [Ratio] 47.3 kg/m2 INSPECTING MACHINE ADJUSTER-C Bird Ruiz INSPECTING MACHINE ADJUSTER Work Phone: [facility] 08-10-2023 14:17-0500 Body weight 121.16 kg INSPECTING MACHINE ADJUSTER-C Bird Ruiz INSPECTING MACHINE ADJUSTER Work Phone: [facility] 08-10-2023 14:17-0500 Diastolic blood pressure 84 mm[Hg] INSPECTING MACHINE ADJUSTER-C Bird Ruiz INSPECTING MACHINE ADJUSTER Work Phone: [facility] 08-10-2023 14:17-0500 Systolic blood pressure 125 mm[Hg] INSPECTING MACHINE ADJUSTER-C Bird Ruiz INSPECTING MACHINE ADJUSTER Work Phone: [facility] 08-07-2023 11:21-0500 Body height 160.02 cm INSPECTING MACHINE ADJUSTER-Holden Ruiz INSPECTING MACHINE ADJUSTER Work Phone: [facility] 08-07-2023 11:18-0500 Body mass index (BMI) [Ratio] 47.2 kg/m2 INSPECTING MACHINE ADJUSTER-C Bird Ruiz INSPECTING MACHINE ADJUSTER Work Phone: [facility] 08-07-2023 11:18-0500 Body weight 121.1 kg INSPECTING MACHINE ADJUSTER-Holden Ruiz INSPECTING MACHINE ADJUSTER Work Phone: [facility] 08-07-2023 11:18-0500 Diastolic blood pressure 76 mm[Hg] INSPECTING MACHINE ADJUSTER-Holden Ruiz INSPECTING MACHINE ADJUSTER Work Phone: [facility] 08-07-2023 11:18-0500 Systolic blood pressure 120 mm[Hg] INSPECTING MACHINE ADJUSTER-C Bird Ruiz INSPECTING MACHINE ADJUSTER Work Phone: [facility] 08-03-2023 13:12-0500 Body mass index (BMI) [Ratio] 46.5 kg/m2 INSPECTING MACHINE ADJUSTER-Holden Ruiz INSPECTING MACHINE ADJUSTER Work Phone: [facility] 08-03-2023 13:12-0500 Body weight 119.29 kg INSPECTING MACHINE ADJUSTER-C Bird Ruiz INSPECTING MACHINE ADJUSTER Work Phone: [facility] 08-03-2023 13:12-0500 Diastolic blood pressure 77 mm[Hg] INSPECTING MACHINE ADJUSTER-C Bird Ruiz INSPECTING MACHINE ADJUSTER Work Phone: [facility] 08-03-2023 13:12-0500 Systolic blood pressure 123 mm[Hg] INSPECTING MACHINE ADJUSTER-C Bird Ruiz INSPECTING MACHINE ADJUSTER Work Phone: [facility] 07-31-2023 13:41-0500 Body mass index (BMI) [Ratio] 46 kg/m2 INSPECTING MACHINE ADJUSTER-C Bird Ruiz INSPECTING MACHINE ADJUSTER Work Phone: [facility] 07-31-2023 13:41-0500 Body weight 117.93 kg INSPECTING MACHINE ADJUSTER-C Bird Ruiz INSPECTING MACHINE ADJUSTER Work Phone: [facility] 07-31-2023 13:41-0500 Diastolic blood pressure 84 mm[Hg] INSPECTING MACHINE ADJUSTER-C Bird Ruiz INSPECTING MACHINE ADJUSTER Work Phone: [facility] 07-31-2023 13:41-0500 Systolic blood pressure 124 mm[Hg] INSPECTING MACHINE ADJUSTER-C Bird Ruiz INSPECTING MACHINE ADJUSTER Work Phone: [facility] 07-27-2023 14:43-0500 Body mass index (BMI) [Ratio] 46.4 kg/m2 INSPECTING MACHINE ADJUSTER-C Bird Ruiz INSPECTING MACHINE ADJUSTER Work Phone: [facility] 07-27-2023 14:43-0500 Body weight 118.89 kg INSPECTING MACHINE ADJUSTER-Holden Ruiz INSPECTING MACHINE ADJUSTER Work Phone: [facility] 07-27-2023 14:43-0500 Diastolic blood pressure 79 mm[Hg] INSPECTING MACHINE ADJUSTER-C Bird Ruiz INSPECTING MACHINE ADJUSTER Work Phone: [facility] 07-27-2023 14:43-0500 Systolic blood pressure 113 mm[Hg] INSPECTING MACHINE ADJUSTER-C Bird Ruiz INSPECTING MACHINE ADJUSTER Work Phone: [facility] 07-25-2023 16:32-0500 Diastolic blood pressure 73 mm[Hg] INSPECTING MACHINE ADJUSTER-C Bird Ruiz INSPECTING MACHINE ADJUSTER Work Phone: [facility] 07-25-2023 16:32-0500 Heart rate 90 /min INSPECTING MACHINE ADJUSTER-Holden Ruiz INSPECTING MACHINE ADJUSTER Work Phone: [facility] 07-25-2023 16:32-0500 Systolic blood pressure 119 mm[Hg] INSPECTING MACHINE ADJUSTER-Holden Ruiz INSPECTING MACHINE ADJUSTER Work Phone: [facility] 07-25-2023 15:56-0500 SaO2% (BldA) [Mass fraction] 98 % INSPECTING MACHINE ADJUSTER-Holden Ruiz INSPECTING MACHINE ADJUSTER Work Phone: [facility] 07-25-2023 15:34-0500 Body height 160.02 cm INSPECTING MACHINE ADJUSTER-Holden Ruiz INSPECTING MACHINE ADJUSTER Work Phone: [facility] 07-25-2023 15:34-0500 Body mass index (BMI) [Ratio] 46 kg/m2 INSPECTING MACHINE ADJUSTER-Holden Ruiz INSPECTING MACHINE ADJUSTER Work Phone: [phone] [place] [address] 07-25-2023 15:34-0500 Body weight 117.93 kg INSPECTING MACHINE ADJUSTER-Holden Ruiz INSPECTING MACHINE ADJUSTER Work Phone: [facility] 07-25-2023 15:26-0500 Body temperature 98.1 [degF] PARMINDER-Holden Ruiz INSPECTING MACHINE ADJUSTER Work Phone: [facility] 07-24-2023 13:57-0500 Body mass index (BMI) [Ratio] 46.4 kg/m2 PARMINDER-Holden Ruiz INSPECTING MACHINE ADJUSTER Work Phone: [facility] 07-24-2023 13:57-0500 Body weight 118.89 kg INSPECTING MACHINE ADJUSTER-Holden Ruiz INSPECTING MACHINE ADJUSTER Work Phone: [facility] 07-24-2023 13:57-0500 Diastolic blood pressure 81 mm[Hg] PARMINDER-Holden Ruiz INSPECTING MACHINE ADJUSTER Work Phone: [facility] 07-24-2023 13:57-0500 Systolic blood pressure 120 mm[Hg] PARMINDER-Holden Ruiz INSPECTING MACHINE ADJUSTER Work Phone: [facility] 07-17-2023 14:39-0500 Body mass index (BMI) [Ratio] 46.4 kg/m2 INSPECTING MACHINE ADJUSTER-Holden Ruiz INSPECTING MACHINE ADJUSTER Work Phone: [facility] 07-17-2023 14:39-0500 Body weight 118.84 kg INSPECTING MACHINE ADJUSTER-C Bird Ruiz INSPECTING MACHINE ADJUSTER Work Phone: [facility] 07-17-2023 14:39-0500 Diastolic blood pressure 77 mm[Hg] INSPECTING MACHINE ADJUSTER-C Bird Ruiz INSPECTING MACHINE ADJUSTER Work Phone: [facility] 07-17-2023 14:39-0500 Systolic blood pressure 122 mm[Hg] INSPECTING MACHINE ADJUSTER-C Bird Ruiz INSPECTING MACHINE ADJUSTER Work Phone: [facility] 07-13-2023 15:20-0500 Body mass index (BMI) [Ratio] 45.9 kg/m2 INSPECTING MACHINE ADJUSTER-Holden Ruiz INSPECTING MACHINE ADJUSTER Work Phone: [facility] 07-13-2023 15:20-0500 Body weight 117.65 kg INSPECTING MACHINE ADJUSTER-C Bird Ruiz INSPECTING MACHINE ADJUSTER Work Phone: [facility] 07-13-2023 15:20-0500 Diastolic blood pressure 80 mm[Hg] INSPECTING MACHINE ADJUSTER-C Bird Ruiz INSPECTING MACHINE ADJUSTER Work Phone: [facility] 07-13-2023 15:20-0500 Systolic blood pressure 124 mm[Hg] INSPECTING MACHINE ADJUSTER-Holden Ruiz INSPECTING MACHINE ADJUSTER Work Phone: [facility] 07-06-2023 13:47-0500 Body height 160.02 cm INSPECTING MACHINE ADJUSTER-Holden Ruiz INSPECTING MACHINE ADJUSTER Work Phone: [facility] 07-06-2023 13:44-0500 Body mass index (BMI) [Ratio] 47.5 kg/m2 INSPECTING MACHINE ADJUSTER-Holden Ruiz INSPECTING MACHINE ADJUSTER Work Phone: [facility] 07-06-2023 13:44-0500 Body weight 121.56 kg INSPECTING MACHINE ADJUSTER-Holden Ruiz INSPECTING MACHINE ADJUSTER Work Phone: [facility] 07-06-2023 13:44-0500 Diastolic blood pressure 76 mm[Hg] INSPECTING MACHINE ADJUSTER-C Bird Ruiz INSPECTING MACHINE ADJUSTER Work Phone: [facility] 07-06-2023 13:44-0500 Systolic blood pressure 120 mm[Hg] INSPECTING MACHINE ADJUSTER-C Bird Ruiz INSPECTING MACHINE ADJUSTER Work Phone: [facility] 06-22-2023 14:12-0500 Body height 160.02 cm INSPECTING MACHINE ADJUSTER-Holden Ruiz INSPECTING MACHINE ADJUSTER Work Phone: [facility] 06-22-2023 14:07-0500 Body mass index (BMI) [Ratio] 45.7 kg/m2 INSPECTING MACHINE ADJUSTER-C Bird Ruiz INSPECTING MACHINE ADJUSTER Work Phone: [facility] 06-22-2023 14:07-0500 Body weight 117.14 kg INSPECTING MACHINE ADJUSTER-C Bird Ruiz INSPECTING MACHINE ADJUSTER Work Phone: [facility] 06-22-2023 14:07-0500 Diastolic blood pressure 53 mm[Hg] INSPECTING MACHINE ADJUSTER-C Bird Ruiz INSPECTING MACHINE ADJUSTER Work Phone: [facility] 06-22-2023 14:07-0500 Systolic blood pressure 91 mm[Hg] INSPECTING MACHINE ADJUSTER-C Bird Ruiz INSPECTING MACHINE ADJUSTER Work Phone: [facility] 06-20-2023 11:01-0500 Body mass index (BMI) [Ratio] 45.6 kg/m2 INSPECTING MACHINE ADJUSTER-Holden Ruiz INSPECTING MACHINE ADJUSTER Work Phone: [facility] 06-20-2023 11:01-0500 Body weight 116.71 kg INSPECTING MACHINE ADJUSTER-Holden Ruiz INSPECTING MACHINE ADJUSTER Work Phone: [facility] 06-20-2023 11:01-0500 Diastolic blood pressure 82 mm[Hg] INSPECTING MACHINE ADJUSTER-Holden Ruiz INSPECTING MACHINE ADJUSTER Work Phone: [facility] 06-20-2023 11:01-0500 Systolic blood pressure 122 mm[Hg] INSPECTING MACHINE ADJUSTER-Holden Ruiz INSPECTING MACHINE ADJUSTER Work Phone: [facility] 06-06-2023 13:33-0500 Body height 160.02 cm INSPECTING MACHINE ADJUSTER-C Bird Ruiz INSPECTING MACHINE ADJUSTER Work Phone: [facility] 06-06-2023 13:33-0500 Body mass index (BMI) [Ratio] 45.7 kg/m2 INSPECTING MACHINE ADJUSTER-C Bird Ruiz INSPECTING MACHINE ADJUSTER Work Phone: [facility] 06-06-2023 13:33-0500 Body weight 117.02 kg INSPECTING MACHINE ADJUSTER-C Bird Ruiz INSPECTING MACHINE ADJUSTER Work Phone: [facility] 06-06-2023 13:33-0500 Diastolic blood pressure 82 mm[Hg] INSPECTING MACHINE ADJUSTER-C Bird Ruiz INSPECTING MACHINE ADJUSTER Work Phone: [facility] 06-06-2023 13:33-0500 Systolic blood pressure 116 mm[Hg] INSPECTING MACHINE ADJUSTER-C Bird Ruiz INSPECTING MACHINE ADJUSTER Work Phone: [phone] [place] [address] 05-18-2023 13:52-0500 Body mass index (BMI) [Ratio] 43.8 kg/m2 INSPECTING MACHINE ADJUSTER-C Bird Ruiz INSPECTING MACHINE ADJUSTER Work Phone: [facility] 05-18-2023 13:52-0500 Body weight 112.23 kg INSPECTING MACHINE ADJUSTER-C Bird Ruiz INSPECTING MACHINE ADJUSTER Work Phone: [facility] 05-18-2023 13:52-0500 Diastolic blood pressure 83 mm[Hg] INSPECTING MACHINE ADJUSTER-C Bird Ruiz INSPECTING MACHINE ADJUSTER Work Phone: [facility] 05-18-2023 13:52-0500 Systolic blood pressure 130 mm[Hg] INSPECTING MACHINE ADJUSTER-C Bird Ruiz INSPECTING MACHINE ADJUSTER Work Phone: [facility] 05-11-2023 14:40-0500 Body mass index (BMI) [Ratio] 43.4 kg/m2 INSPECTING MACHINE ADJUSTER-Holden Ruzi INSPECTING MACHINE ADJUSTER Work Phone: [facility] 05-11-2023 14:40-0500 Body temperature 98 [degF] INSPECTING MACHINE ADJUSTER-Holden Ruiz INSPECTING MACHINE ADJUSTER Work Phone: [facility] 05-11-2023 14:40-0500 Body weight 111.3 kg INSPECTING MACHINE ADJUSTER-C Bird Ruiz INSPECTING MACHINE ADJUSTER Work Phone: [facility] 05-11-2023 14:40-0500 Diastolic blood pressure 68 mm[Hg] INSPECTING MACHINE ADJUSTER-C Bird Ruiz INSPECTING MACHINE ADJUSTER Work Phone: [facility] 05-11-2023 14:40-0500 Heart rate 76 /min INSPECTING MACHINE ADJUSTER-C Bird Ruiz INSPECTING MACHINE ADJUSTER Work Phone: [facility] 05-11-2023 14:40-0500 Respiratory rate 16 /min INSPECTING MACHINE ADJUSTER-C Bird Ruiz INSPECTING MACHINE ADJUSTER Work Phone: [facility] 05-11-2023 14:40-0500 SaO2% (BldA) [Mass fraction] 97 % INSPECTING MACHINE ADJUSTER-C Bird Ruiz INSPECTING MACHINE ADJUSTER Work Phone: [facility] 05-11-2023 14:40-0500 Systolic blood pressure 102 mm[Hg] INSPECTING MACHINE ADJUSTER-C Bird Ruiz INSPECTING MACHINE ADJUSTER Work Phone: [facility] 03-23-2023 14:09-0400 Body height 160.02 cm INSPECTING MACHINE ADJUSTER-Holden Ruiz INSPECTING MACHINE ADJUSTER Work Phone: [facility] 03-23-2023 14:06-0400 Body mass index (BMI) [Ratio] 43.2 kg/m2 INSPECTING MACHINE ADJUSTER-Holden Ruiz INSPECTING MACHINE ADJUSTER Work Phone: [facility] 03-23-2023 14:06-0400 Body weight 110.67 kg INSPECTING MACHINE ADJUSTER-Holden Ruiz INSPECTING MACHINE ADJUSTER Work Phone: [facility] 03-23-2023 14:06-0400 Diastolic blood pressure 69 mm[Hg] INSPECTING MACHINE ADJUSTER-Holden Ruiz INSPECTING MACHINE ADJUSTER Work Phone: [facility] 03-23-2023 14:06-0400 Systolic blood pressure 110 mm[Hg] PARMINDER-Holden Ruiz INSPECTING MACHINE ADJUSTER Work Phone: [facility] 02-23-2023 13:14-0400 Body mass index (BMI) [Ratio] 43 kg/m2 INSPECTING MACHINE ADJUSTER-C Bird Ruiz INSPECTING MACHINE ADJUSTER Work Phone: [facility] 02-23-2023 13:14-0400 Body weight 110.22 kg INSPECTING MACHINE ADJUSTER-C Bird Ruiz INSPECTING MACHINE ADJUSTER Work Phone: [facility] 02-23-2023 13:14-0400 Diastolic blood pressure 80 mm[Hg] INSPECTING MACHINE ADJUSTER-C Bird Ruiz INSPECTING MACHINE ADJUSTER Work Phone: [facility] 02-23-2023 13:14-0400 Systolic blood pressure 112 mm[Hg] INSPECTING MACHINE ADJUSTER-C Bird Ruiz INSPECTING MACHINE ADJUSTER Work Phone: [facility] 02-13-2023 08:32-0400 Body mass index (BMI) [Ratio] 43.7 kg/m2 INSPECTING MACHINE ADJUSTER-C Bird Ruiz INSPECTING MACHINE ADJUSTER Work Phone: [facility] 02-13-2023 08:32-0400 Body temperature 98.4 [degF] INSPECTING MACHINE ADJUSTER-C Bird Ruiz INSPECTING MACHINE ADJUSTER Work Phone: [facility] 02-13-2023 08:32-0400 Body weight 112.09 kg INSPECTING MACHINE ADJUSTER-C Bird Ruiz INSPECTING MACHINE ADJUSTER Work Phone: [facility] 02-13-2023 08:32-0400 Diastolic blood pressure 84 mm[Hg] INSPECTING MACHINE ADJUSTER-C Bird Ruiz INSPECTING MACHINE ADJUSTER Work Phone: [facility] 02-13-2023 08:32-0400 Heart rate 80 /min INSPECTING MACHINE ADJUSTER-C Bird Ruiz INSPECTING MACHINE ADJUSTER Work Phone: [facility] 02-13-2023 08:32-0400 Respiratory rate 16 /min INSPECTING MACHINE ADJUSTER-C Bird Ruiz INSPECTING MACHINE ADJUSTER Work Phone: [facility] 02-13-2023 08:32-0400 SaO2% (BldA) [Mass fraction] 97 % INSPECTING MACHINE ADJUSTER-C Bird Ruiz INSPECTING MACHINE ADJUSTER Work Phone: [facility] 02-13-2023 08:32-0400 Systolic blood pressure 112 mm[Hg] INSPECTING MACHINE ADJUSTER-C Bird Ruiz INSPECTING MACHINE ADJUSTER Work Phone: [facility] 01-25-2023 10:49-0400 Body height 160.02 cm INSPECTING MACHINE ADJUSTER-C Bird Ruiz INSPECTING MACHINE ADJUSTER Work Phone: [facility] 01-25-2023 10:48-0400 Body mass index (BMI) [Ratio] 42.5 kg/m2 INSPECTING MACHINE ADJUSTER-C Bird Ruiz INSPECTING MACHINE ADJUSTER Work Phone: [facility] 01-25-2023 10:48-0400 Body weight 109.08 kg INSPECTING MACHINE ADJUSTER-C Bird Ruiz INSPECTING MACHINE ADJUSTER Work Phone: [facility] 01-25-2023 10:48-0400 Diastolic blood pressure 80 mm[Hg] INSPECTING MACHINE ADJUSTER-C Bird Ruiz INSPECTING MACHINE ADJUSTER Work Phone: [facility] 01-25-2023 10:48-0400 Systolic blood pressure 129 mm[Hg] INSPECTING MACHINE ADJUSTER-C Bird Ruiz INSPECTING MACHINE ADJUSTER Work Phone: [facility] Encounters Encounter Date Encounter Type Care Provider Facility Start: 01-30-2025 ambulatory Fadumo Anna lity:[facility] Start: 01-29-2025 End: 01-29-2025 ambulatory Bird Ruiz INSPECTING MACHINE ADJUSTER-C Work Phone: -[facility] Start: 01-29-2025 End: 01-29-[address] Fadumo Zelaya MD -[facility] Work Phone: Start: 01-22-2025 End: 01-22-[address] Fadumo Zelaya MD -[facility] Work Phone: Start: 01-22-2025 End: 01-22-2025 ambulatory Bird Ruiz INSPECTING MACHINE ADJUSTER-C Work Phone: -[facility] Start: 01-22-2025 End: 01-22-[address] Fadumo Zelaya MD -[facility] Work Phone: Start: 01-22-2025 End: 01-22-2025 ambulatory Fadumo Zelaya Facility:[facility] Start: 01-16-2025 End: 01-16-[address] Fadumo Zelaya MD -[facility] Work Phone: Start: 01-16-2025 End: 01-16-2025 ambulatory Bird Ruiz INSPECTING MACHINE ADJUSTER-C Work Phone: -[facility] Start: 01-16-2025 End: 01-16-2025 ambulatory Fadumo Zelaya Facility:[facility] Start: 01-13-2025 Non-patient / Non-visit Dr. Evelin Cardona DO [facility] Start: 01-13-2025 End: 01-13-2025 ambulatory Bird Ruiz INSPECTING MACHINE ADJUSTER-C Work Phone: -[facility] Start: 01-13-2025 End: 01-13-[address] Evelin Cardona DO [facility] Work Phone: Start: 01-08-2025 ambulatory Evelin Cardona cility:[facility] Start: 01-08-2025 Non-patient / Non-visit Dr. Evelin Cardona DO [facility] Start: 01-08-2025 End: 01-08-2025 Patient encounter procedure Anisa KEITAC -[facility] Work Phone: Start: 01-08-2025 End: 01-08-2025 ambulatory Bird Ruiz INSPECTING MACHINE ADJUSTER-C Work Phone: -[facility] Start: 01-08-2025 End: 01-08-[address] Fadumo Zelaya MD -[facility] Work Phone: Start: 01-08-2025 End: 01-08-2025 ambulatory Bird Ruiz INSPECTING MACHINE ADJUSTER-C Work Phone: -[facility] Start: 01-01-2025 End: 01-01-2025 ambulatory Bird Ruiz INSPECTING MACHINE ADJUSTER-C Work Phone: -[facility] Start: 01-01-2025 End: 01-01-2025 Patient encounter procedure Marietta Augie CNM -[facility]tras[facility] Work Phone: Start: 01-01-2025 End: 01-01-2025 ambulatory Marietta Ghosh Facility:[facility] Start: 12-26-2024 End: 12-26-[address] Fadumo Zelaya MD -[facility] Work Phone: Start: 12-26-2024 End: 12-26-2024 ambulatory Bird Ruiz INSPECTING MACHINE ADJUSTER-C Work Phone: -[facility] Start: 12-26-2024 End: 12-26-2024 ambulatory Fadumo Zelaya Facility:[facility] Start: 12-17-2024 End: 12-17-2024 ambulatory Bird Ruiz INSPECTING MACHINE ADJUSTER-C Work Phone: [facility] Work Phone: Start: 12-17-2024 End: 12-17-2024 Patient encounter procedure Marietta Ghosh CNM -[facility] Work Phone: Start: 12-16-2024 End: 12-16-[address] Sha Vaughan MD -[facility] Work Phone: Start: 12-16-2024 End: 12-17-2024 ambulatory Bird Ruiz INSPECTING MACHINE ADJUSTER-C Work Phone: [facility] Work Phone: Start: 12-11-2024 End: 12-11-2024 Patient encounter procedure Anisa Blacmkon INSPECTING MACHINE ADJUSTER-C -[facility] Work Phone: Start: 12-11-2024 End: 12-11-2024 ambulatory Bird Riuz INSPECTING MACHINE ADJUSTER-C Work Phone: [facility] Work Phone: Start: 12-01-2024 ambulatory Bird Ruiz Facility :[facility] Start: 11-13-2024 End: 11-13-2024 ambulatory BIRD RUIZ [facility] Start: 11-11-2024 End: 11-11-2024 Patient encounter procedure [facility]etta [facility] Work Phone: Start: 11-11-2024 End: 11-11-2024 ambulatory Bird Ruiz INSPECTING MACHINE ADJUSTER-C Work Phone: [facility] Work Phone: Start: 11-11-2024 End: 11-11-2024 ambulatory [facility] Facility:[facility] Start: 10-31-2024 End: 10-31-2024 Patient encounter procedure Marietta Ghosh CN -[facility] Work Phone: Start: 10-31-2024 End: 10-31-2024 ambulatory Marietta Ghosh Facility:[facility] Start: 10-02-2024 End: 10-02-2024 Patient encounter procedure Marietta Ghosh [facility] -[facility] Work Phone: Start: 10-02-2024 End: 10-02-2024 ambulatory Marietta Ghosh Facility:[facility] Start: 09-26-2024 ambulatory [facility] Facility :[facility] Start: 09-23-2024 End: 09-23-2024 ambulatory BIRD CERVANTES [facility] Start: 09-16-2024 End: 09-16-2024 ambulatory FADUMO ZELAYA [facility] Start: 08-27-2024 End: 08-27-[address] Fadumo Zelaya MD -[facility] Work Phone: Start: 08-27-2024 End: 08-27-2024 ambulatory Bird Ruiz Facility:[facility] Start: 08-01-2024 End: 08-01-[address] Fadumo Zelaya MD -[facility] Work Phone: Start: 08-01-2024 End: 08-01-2024 ambulatory Fadumo Zelaya Facility:[facility] Start: 07-21-2024 End: 07-21-2024 ambulatory BIRD CERVANTES [facility] Start: 07-21-2024 End: 07-21-2024 Patient encounter procedure Marietta Ghosh CNM -Lab, [facility] Start: 07-21-2024 End: 07-21-2024 ambulatory Marietta Ghosh Facility:[facility] Start: 07-03-2024 End: 07-03-2024 ambulatory Marietta Ghosh Facility:[facility] Start: 07-03-2024 End: 07-03-2024 ambulatory Marietta Ghosh Facility:[facility] Start: 06-13-2024 End: 06-13-2024 ambulatory BIRD CERVANTES [facility] Start: 06-13-2024 End: 06-13-2024 Encounter for general adult medical examination with abnormal findings BIRD CERVANTES [facility] Start: 03-11-2024 End: 03-11-2024 ambulatory Arturo LEBLANC Facility:[facility] Start: 08-22-2023 Non-patient / Non-visit INSPECTING MACHINE ADJUSTER-C Bird Ruiz INSPECTING MACHINE ADJUSTER Work Phone: [facility] Start: 08-21-2023 Non-patient / Non-visit INSPECTING MACHINE ADJUSTER-C Bird Ruiz INSPECTING MACHINE ADJUSTER Work Phone: [facility] Start: 08-20-2023 Non-patient / Non-visit INSPECTING MACHINE ADJUSTER-C Bird Ruiz INSPECTING MACHINE ADJUSTER Work Phone: [facility] Start: 08-20-2023 End: 08-22-2023 Evaluation and management of inpatient INSPECTING MACHINE ADJUSTER-C Bird Ruiz INSPECTING MACHINE ADJUSTER [facility] Phone[facility] Work Phone: Start: 08-17-2023 End: 08-17-2023 ambulatory INSPECTING MACHINE ADJUSTER-C Bird Ruiz INSPECTING MACHINE ADJUSTER Work Phone: [facility] Work Phone: Start: 08-17-2023 End: 08-17-2023 Patient encounter procedure INSPECTING MACHINE ADJUSTER-C Bird Ruiz INSPECTING MACHINE ADJUSTER Work Phone: [facility] Work Phone: Start: 08-14-2023 End: 08-14-2023 Patient encounter procedure INSPECTING MACHINE ADJUSTER-Holden Ruiz INSPECTING MACHINE ADJUSTER Work Phone: [facility] Work Phone: Start: 08-10-2023 End: 08-10-2023 Patient encounter procedure INSPECTING MACHINE ADJUSTER-Holden Ruiz INSPECTING MACHINE ADJUSTER Work Phone: [facility] Work Phone: Start: 08-07-2023 End: 08-07-2023 ambulatory INSPECTING MACHINE ADJUSTER-C Bird Ruiz INSPECTING MACHINE ADJUSTER Work Phone: [facility] Work Phone: Start: 08-07-2023 End: 08-07-2023 Patient encounter procedure INSPECTING MACHINE ADJUSTER-C Bird Ruiz INSPECTING MACHINE ADJUSTER Work Phone: [facility]-Laboratory, Specimen Work Phone: Start: 08-07-2023 End: 08-07-2023 Patient encounter procedure INSPECTING MACHINE ADJUSTER-C Bird Ruiz INSPECTING MACHINE ADJUSTER Work Phone: [facility] Work Phone: Start: 08-03-2023 End: 08-03-2023 ambulatory INSPECTING MACHINE ADJUSTER-C Bird Ruiz INSPECTING MACHINE ADJUSTER Work Phone: [facility] Work Phone: Start: 08-03-2023 End: 08-03-2023 Patient encounter procedure INSPECTING MACHINE ADJUSTER-Holden Ruiz INSPECTING MACHINE ADJUSTER Work Phone: [facility] Work Phone: Start: 07-31-2023 End: 07-31-2023 Patient encounter procedure INSPECTING MACHINE ADJUSTER-Holden Ruiz INSPECTING MACHINE ADJUSTER Work Phone: [facility] Work Phone: Start: 07-27-2023 End: 07-27-2023 Patient encounter procedure INSPECTING MACHINE ADJUSTER-Holden Ruiz INSPECTING MACHINE ADJUSTER Work Phone: [facility] Work Phone: Start: 07-25-2023 Non-patient / Non-visit INSPECTING MACHINE ADJUSTER-C Bird Ruiz INSPECTING MACHINE ADJUSTER Work Phone: [facility] Start: 07-25-2023 End: 07-25-2023 ambulatory INSPECTING MACHINE ADJUSTER-C Bird Ruiz INSPECTING MACHINE ADJUSTER Work Phone: [facility] Work Phone: Start: 07-25-2023 End: 07-25-2023 Patient encounter procedure INSPECTING MACHINE ADJUSTER-C Bird Ruiz INSPECTING MACHINE ADJUSTER Work Phone: [facility] Work Phone: Start: 07-24-2023 End: 07-24-2023 ambulatory INSPECTING MACHINE ADJUSTER-C Bird Ruiz INSPECTING MACHINE ADJUSTER Work Phone: [facility] Work Phone: Start: 07-24-2023 End: 07-24-2023 Patient encounter procedure INSPECTING MACHINE ADJUSTER-C Bird Ruiz INSPECTING MACHINE ADJUSTER Work Phone: [facility]-Laboratory, Specimen Work Phone: Start: 07-24-2023 End: 07-24-2023 Patient encounter procedure INSPECTING MACHINE ADJUSTER-C Bird Ruiz INSPECTING MACHINE ADJUSTER Work Phone: [facility] Work Phone: Start: 07-17-2023 End: 07-17-2023 Patient encounter procedure INSPECTING MACHINE ADJUSTER-C Bird Ruiz INSPECTING MACHINE ADJUSTER Work Phone: [facility] Work Phone: Start: 07-13-2023 End: 07-13-2023 Patient encounter procedure INSPECTING MACHINE ADJUSTER-C Bird Ruiz INSPECTING MACHINE ADJUSTER Work Phone: [facility] Work Phone: Start: 07-06-2023 End: 07-06-2023 ambulatory INSPECTING MACHINE ADJUSTER-C Bird Ruiz INSPECTING MACHINE ADJUSTER Work Phone: [facility] Work Phone: Start: 07-06-2023 End: 07-06-2023 Patient encounter procedure INSPECTING MACHINE ADJUSTER-C Bird Ruiz INSPECTING MACHINE ADJUSTER Work Phone: [facility] Work Phone: Start: 06-22-2023 End: 06-22-2023 Patient encounter procedure INSPECTING MACHINE ADJUSTER-C Bird Ruiz INSPECTING MACHINE ADJUSTER Work Phone: [facility] Work Phone: Start: 06-20-2023 End: 06-20-2023 ambulatory INSPECTING MACHINE ADJUSTER-C Bird Ruiz INSPECTING MACHINE ADJUSTER Work Phone: [facility] Work Phone: Start: 06-20-2023 End: 06-20-2023 Patient encounter procedure INSPECTING MACHINE ADJUSTER-C Bird Ruiz INSPECTING MACHINE ADJUSTER Work Phone: [facility] Work Phone: Start: 06-14-2023 End: 06-14-2023 ambulatory INSPECTING MACHINE ADJUSTER-C Bird Ruiz INSPECTING MACHINE ADJUSTER Work Phone: [facility] Work Phone: Start: 06-14-2023 End: 06-14-2023 Patient encounter procedure INSPECTING MACHINE ADJUSTER-C Bird Ruiz INSPECTING MACHINE ADJUSTER Work Phone: [facility]-Ultrasound, [facility] Work Phone: Start: 06-06-2023 End: 06-06-2023 Patient encounter procedure INSPECTING MACHINE ADJUSTER-C Bird Ruiz INSPECTING MACHINE ADJUSTER Work Phone: [facility] Work Phone: Start: 05-18-2023 End: 05-18-2023 Patient encounter procedure INSPECTING MACHINE ADJUSTER-C Bird Ruiz INSPECTING MACHINE ADJUSTER Work Phone: [facility] Work Phone: Start: 05-11-2023 End: 05-11-2023 Patient encounter procedure INSPECTING MACHINE ADJUSTER-C Bird Ruiz INSPECTING MACHINE ADJUSTER Work Phone: [facility] Work Phone: Start: 04-12-2023 End: 04-12-2023 ambulatory INSPECTING MACHINE ADJUSTER-C Bird Ruiz INSPECTING MACHINE ADJUSTER Work Phone: [facility] Work Phone: Start: 04-12-2023 End: 04-12-2023 Patient encounter procedure INSPECTING MACHINE ADJUSTER-C Bird Ruiz INSPECTING MACHINE ADJUSTER Work Phone: [facility]-Outpatient Pavilion Ultrasound Work Phone: Start: 03-23-2023 End: 03-23-2023 Patient encounter procedure INSPECTING MACHINE ADJUSTER-C Bird Ruiz INSPECTING MACHINE ADJUSTER Work Phone: [facility]-Laboratory, Specimen Work Phone: Start: 03-23-2023 End: 03-23-2023 Patient encounter procedure INSPECTING MACHINE ADJUSTER-C Bird Ruiz INSPECTING MACHINE ADJUSTER Work Phone: [facility] Work Phone: Start: 02-23-2023 End: 02-23-2023 Patient encounter procedure INSPECTING MACHINE ADJUSTER-C Bird Ruiz INSPECTING MACHINE ADJUSTER Work Phone: [facility] Work Phone: Start: 02-13-2023 End: 02-13-2023 Patient encounter procedure INSPECTING MACHINE ADJUSTER-C Bird Ruiz INSPECTING MACHINE ADJUSTER Work Phone: [facility] Work Phone: Start: 02-08-2023 End: 02-08-2023 ambulatory INSPECTING MACHINE ADJUSTER-C Bird Ruiz INSPECTING MACHINE ADJUSTER Work Phone: [facility] Work Phone: Start: 02-08-2023 End: 02-08-2023 Patient encounter procedure INSPECTING MACHINE ADJUSTER-C Bird Ruiz INSPECTING MACHINE ADJUSTER Work Phone: [facility]-Laboratory, OP Pavilion Start: 01-25-2023 End: 01-25-2023 ambulatory INSPECTING MACHINE ADJUSTER-C Bird Ruiz INSPECTING MACHINE ADJUSTER Work Phone: [facility] Work Phone: Start: 01-25-2023 End: 01-25-2023 Patient encounter procedure INSPECTING MACHINE ADJUSTER-C Bird Ruiz INSPECTING MACHINE ADJUSTER Work Phone: [facility]-Outpatient Pavilion Ultrasound Work Phone: Start: 01-25-2023 End: 01-25-2023 Patient encounter procedure INSPECTING MACHINE ADJUSTER-C Bird Ruiz INSPECTING MACHINE ADJUSTER Work Phone: [facility] Work Phone: Start: 08-14-2017 Ambulatory Sukumar Joya Facil ity:[facility] Start: 07-31-2017 Ambulatory Sukumar Joya Facil ity:[facility] Start: 06-05-2017 Ambulatory CAROLYNE Bennetti ty:[facility] Start: 04-02-2017 Ambulatory Michelle Roberts Facilit y:[facility] Procedures Date Procedure Procedure Detail Performing Clinician Start: 01-22-2025 Ultrasonography for biophysical profile without non-stress testing Bird KEITAC Work Phone: Start: 01-16-2025 Ultrasound scan for growth Bird KEITAC Work Phone: Start: 01-16-2025 Beta-hemolytic Streptococcus culture Bird Ruiz NP-C Work Phone: Start: 01-13-2025 Measurement of pH in vaginal fluid specimen using nitrazine yellow for detection of rupture of amniotic membrane Bird Ruiz NP-C Work Phone: Comment on above: Amniotic fluid not p resent indicates No Rupture of FetalMembranes at time of specimen collection. Start: 01-08-2025 Estimated creatinine clearance Bird KEITAC Work Phone: Start: 01-08-2025 Ultrasonography for biophysical profile without non-stress testing Bird Ruiz INSPECTING MACHINE ADJUSTER-C Work Phone: Start: 01-01-2025 Ultrasonography for biophysical profile without non-stress testing Bird Ruiz INSPECTING MACHINE ADJUSTER-C Work Phone: Start: 12-17-2024 Ultrasound scan for growth Bird Ruiz INSPECTING MACHINE ADJUSTER-C Work Phone: Start: 11-11-2024 Serologic test for syphilis Bird Ruiz INSPECTING MACHINE ADJUSTER-C Work Phone: Start: 07-21-2024 Hepatitis B surface antigen measurement Bird Ruiz INSPECTING MACHINE ADJUSTER-C Work Phone: Start: 07-21-2024 Hepatitis C antibody measurement Bird Ruiz INSPECTING MACHINE ADJUSTER-C Work Phone: Comment on above: Non Reactive: < 0.8 Equivocal: >/= 0.8 to < 1.0 Reactive: >/= 1.0The [facility] requires that a reactive/equivocal HCV antibody result be sent out for confirmation. HCV Quant by PCR testing. Start: 07-21-2024 Measurement of 3,4-methylenedioxymethamph etamine in urine Bird Ruiz INSPECTING MACHINE ADJUSTER-C Work Phone: Start: 07-21-2024 Measurement of renal function Bird Ruiz INSPECTING MACHINE ADJUSTER-C Work Phone: Comment on above: GFR Calc Start: 07-21-2024 Methadone measuremen t, urine Bird Ruiz INSPECTING MACHINE ADJUSTER-C Work Phone: Start: 07-21-2024 Procedure Bird B yler INSPECTING MACHINE ADJUSTER-C Work Phone: Start: 07-21-2024 Rubella IgG measurement Bird Ruiz INSPECTING MACHINE ADJUSTER-C Work Phone: Comment on above: Antibody Results Int erpretation of Immune Status Non Reactive Presumed Non-Immune Equivocal Equivocal Reactive Presumed Immune Start: 07-21-2024 Urine barbiturate measurement Bird Ruiz INSPECTING MACHINE ADJUSTER-C Work Phone: Start: 08-17-2023 Ultrasonography for biophysical profile without non-stress testing INSPECTING MACHINE ADJUSTER-C Bird Ruiz INSPECTING MACHINE ADJUSTER Work Phone: Start: 08-07-2023 Bacterial nucleic ac id assay INSPECTING MACHINE ADJUSTER-C Bird Donnellyler INSPECTING MACHINE ADJUSTER Work Phone: Start: 08-07-2023 Chlamydia trachomati s (PCR) INSPECTING MACHINE ADJUSTER-C Bird Donnellyler INSPECTING MACHINE ADJUSTER Work Phone: Start: 08-03-2023 Group B Streptococcu s Culture INSPECTING MACHINE ADJUSTER-C Bird Donnellyler INSPECTING MACHINE ADJUSTER Work Phone: Start: 08-03-2023 Ultrasound scan for growth INSPECTING MACHINE ADJUSTER-C Bird Donnellyler INSPECTING MACHINE ADJUSTER Work Phone: Start: 07-24-2023 Urine culture INSPECTING MACHINE ADJUSTER-C Charanjit waters Joseph INSPECTING MACHINE ADJUSTER Work Phone: Start: 07-06-2023 Ultrasonography for biophysical profile without non-stress testing INSPECTING MACHINE ADJUSTER-C Bird Joseph INSPECTING MACHINE ADJUSTER Work Phone: Start: 06-20-2023 US scan of gallbladder INSPECTING MACHINE ADJUSTER-C Bird Joseph INSPECTING MACHINE ADJUSTER Work Phone: Start: 06-14-2023 US urinary tract INSPECTING MACHINE ADJUSTER-C Bartolo george Ruiz INSPECTING MACHINE ADJUSTER Work Phone: Start: 04-12-2023 Ultrasonography in f irst trimester INSPECTING MACHINE ADJUSTER-C Bird Donnellyler INSPECTING MACHINE ADJUSTER Work Phone: Start: 01-25-2023 Urine culture INSPECTING MACHINE ADJUSTER-C Charanjit waters Joseph INSPECTING MACHINE ADJUSTER Work Phone: Start: 01-25-2023 Transvaginal obstetr ic ultrasonography INSPECTING MACHINE ADJUSTER-C Bird Joseph INSPECTING MACHINE ADJUSTER Work Phone: H/O: section Previous c esarean section Bird Ruiz INSPECTING MACHINE ADJUSTER-C Work Phone: H/O: section Previous c esarean section Dr. Fadumo Zelaya MD H/O: section Previous c esarean section Dr. Fadumo Zelaya MD H/O: section Previous c esarean section Marietta Ghosh CNM H/O: section Previous c esarean section Marietta Ghosh CNM H/O: section Previous c esarean section Marietta Ghosh CNM H/O: section Previous c esarean section Anisa Blackmon INSPECTING MACHINE ADJUSTER-C H/O: section Previous c esarean section Dr. Fadumo Zelaya MD H/O: section Previous c esarean section Anisa Blackmon INSPECTING MACHINE ADJUSTER-C H/O: section Previous c esarean section Dr. Evelin Cardona DO H/O: section Previous c esarean section Dr. Evelin Cardona DO H/O: section Previous c esarean section Dr. Fadumo Zelaya MD H/O: section Previous c esarean section Dr. Fadumo Zelaya MD H/O: section Previous c esarean section Dr. Fadumo Zelaya MD Plan of Treatment Date Care Activity Detail Author Start: 01-22-2025 Biophysical profile panel [facility] Start: 01-22-2025 Ultrasonography for biophysical profile without non-stress testing OB Biophysical Prof W/O NST [facility] Start: 01-13-2025 Nonstress test [facility] Start: 01-13-2025 Obstetric monitoring [facility] Start: 01-13-2025 [facility] Start: 01-13-2025 Vital signs measurements [facility] Start: 01-08-2025 Nonstress test [facility] Start: 01-08-2025 Obstetric monitoring [facility] Start: 01-08-2025 [facility] Start: 01-08-2025 Vital signs measurements [facility] Start: 01-08-2025 Biophysical profile panel [facility] Start: 01-08-2025 Ultrasonography for biophysical profile without non-stress testing OB Biophysical Prof W/O NST [facility] Start: 01-08-2025 Patient discharge [facility] Start: 12-26-2024 CBC W Auto Differential panel - Blood [facility] Start: 12-26-2024 Comprehensive metabolic 2000 panel - Serum or Plasma [facility] Start: 11-11-2024 CBC W Auto Differential panel - Blood [facility] Start: 11-11-2024 Measurement of glucose 2 hours after glucose challenge for glucose tolerance test [facility] Start: 11-11-2024 Serologic test for syphilis [facility] Start: 11-11-2024 [facility] Start: 11-11-2024 Patient referral [facility] Work Phone: Start: 08-22-2023 Patient discharge [facility] Start: 08-21-2023 [facility] Start: 08-21-2023 Application of abdominal corset [facility] Start: 08-20-2023 Administration of medication [facility] Start: 08-20-2023 Ambulation therapy management [facility] Start: 08-20-2023 Application of device [facility] Start: 08-20-2023 End: 08-20-2023 Application of intermittent pneumatic compression device [facility] Start: 08-20-2023 Assessment of risk of venous thromboembolism [facility] Start: 08-20-2023 Catheterization of vein [facility] Start: 08-20-2023 Deep breathing and coughing exercises [facility] Start: 08-20-2023 Exercises [facility] Start: 08-20-2023 Measuring intake and output [facility] Start: 08-20-2023 Notification of physician [facility] Start: 08-20-2023 Procedure discontinued [facility] Start: 08-20-2023 Provision of activity privileges [facility] Start: 08-20-2023 Skin care [facility] Start: 08-20-2023 Vital signs measurements [facility] Start: 08-20-2023 Wound care [facility] Start: 08-20-2023 [facility] Start: 08-20-2023 Application of abdominal corset [facility] Start: 08-20-2023 section Primary C Section (Not Applicable) [facility] Start: 08-20-2023 Admission procedure [facility] Start: 08-20-2023 Consultation [facility] Start: 08-17-2023 biophysical profile w/o non-stress testing BIOPHYS PROFIL W/O NST [facility] Start: 07-25-2023 Nonstress test [facility] Start: 07-25-2023 Obstetric monitoring [facility] Start: 07-25-2023 Vital signs measurements [facility] Start: 07-25-2023 [facility] Start: 07-25-2023 Patient discharge [facility] Start: 07-24-2023 [facility] Start: 07-24-2023 Bacteria identified in Urine by Culture [facility] Alanine aminotransfe rase [Enzymatic activity/volume] in Serum or Plasma [facility] Albumin [Mass/volume ] in Serum or Plasma [facility] Alkaline phosphatase [Enzymatic activity/volume] in Serum or Plasma [facility] Anion gap in Serum o r Plasma [facility] Bilirubin, total measurement [facility] BUN/Creatinine ratio [facility] Calcium [Mass/volume ] in Serum or Plasma [facility] Carbon dioxide, tota l [Moles/volume] in Central venous blood [facility] CBC W Auto Different ial panel - Blood [facility] CBC W Auto Different ial panel - Blood [facility] Comprehensive metabo lic 2000 panel - Serum or Plasma [facility] Creatinine [Mass/vol ume] in Serum or Plasma [facility] Erythrocyte mean corpuscular volume determination [facility] Erythrocyte mean corpuscular volume determination [facility] Biophysical pr ofile panel US [facility] Glucose [Mass/volume ] in Serum or Plasma [facility] Glucose [Mass/volume ] in Serum or Plasma --1 hour post 50 g glucose PO [facility] Hematocrit [Volume Fraction] of Blood [facility] Hematocrit [Volume Fraction] of Blood [facility] Hemoglobin [Mass/vol ume] in Blood [facility] Hemoglobin [Mass/vol ume] in Blood [facility] Hepatitis B surface antigen measurement [facility] Hepatitis C antibody measurement [facility] HIV 1+2 Ab+HIV1 p24 Ag [Presence] in Serum or Plasma by Immunoassay [facility] Leukocytes [#/volume ] in Blood [facility] Leukocytes [#/volume ] in Blood [facility] Mean corpuscular hem oglobin concentration determination [facility] Mean corpuscular hem oglobin concentration determination [facility] Mean corpuscular hem oglobin determination [facility] Mean corpuscular hem oglobin determination [facility] Measurement of renal function [facility] Neutrophil count [facility] Neutrophil count [facility] Neutrophil percent differential count [facility] Neutrophil percent differential count [facility] Patient Education Kick Counts ED False Labor OB Triage: Return to Hospital or Notify Physician if you Experience: [facility] [facility] Work Phone: Patient referral [facility] Work Phone: Platelets [#/volume] in Blood [facility] Platelets [#/volume] in Blood [facility] Potassium measurement [facility] Protein/Creatinine [ Ratio] in Urine [facility] Protein/Creatinine [ Ratio] in Urine [facility] Red blood cell count [facility] Red blood cell count [facility] Red cell distributio n width determination [facility] Red cell distributio n width determination [facility] Rubella IgG measurement [facility] Serum chloride measurement [facility] Sodium measurement [facility] Streptococcus agalac tiae [Presence] in Unspecified specimen by Organism specific culture [facility] Total protein measurement [facility] Treponema sp Ab [Pre sence] in Serum [facility] Ultrasound scan for growth [facility] Ultrasound scan for growth [facility] Ultrasound scan for growth [facility] Urea nitrogen [Mass/ volume] in Serum or Plasma [facility] Immunizations Immunization Date Immunization Notes Care Provider Shikha pérez 12-11-2024 tetanus toxoid, redu thomas diphtheria toxoid, and acellular pertussis vaccine, adsorbed Bird Ruiz INSPECTING MACHINE ADJUSTER-C Work Phone: [facility] 06-06-2023 influenza, injectabl e, quadrivalent, preservative free INSPECTING MACHINE ADJUSTER-C Bird Ruiz INSPECTING MACHINE ADJUSTER Work Phone: [facility] 06-06-2023 tetanus toxoid, redu thomas diphtheria toxoid, and acellular pertussis vaccine, adsorbed INSPECTING MACHINE ADJUSTER-C Bird Ruiz INSPECTING MACHINE ADJUSTER Work Phone: [facility] 05-24-2020 tetanus toxoid, redu thomas diphtheria toxoid, and acellular pertussis vaccine, adsorbed INSPECTING MACHINE ADJUSTER-C Bird Ruiz INSPECTING MACHINE ADJUSTER Work Phone: [facility] 03-24-2020 influenza, injectable,quadrivalent , preservative free, parachute rigger-C Bird Ruiz INSPECTING MACHINE ADJUSTER Work Phone: [facility] Payers Date Payer Category Payer Medicaid [id number] 2024 Private Health Insurance [id number] 2024 Self-pay [id number] 2016 Unknown [id number] 2000 Unknown [id number] 2.16.840.1.501080.3.579.2.651 2000 Unknown [id number] 2.16.840.1.449554.3.579.2.651 2000 Unknown [id number] 2.16.840.1.507349.3.579.2.479 2000 Unknown [id number] 2.16.840.1.931434.3.579.2.479 Unknown [id number] Unknown [facility] [id number] Unknown [facility] PACKAGE PLAN . [id number] Unknown [id number] 2.16.840.1.428802.3.579.2.462 Unknown [id number] 2.16.840.1.871813.3.579.2.462 Unknown [id number] 2.16.840.1.464890.3.579.2.462 Unknown [id number] 2.16.840.1.247685.3.579.2.462 Unknown [id number] 2.16.840.1.001734.3.579.2.462 Unknown [id number] 2.16.840.1.705116.3.579.2.462 Unknown [id number] 2.16.840.1.130776.3.579.2.462 Unknown [id number] 2.16.840.1.845554.3.579.2.462 Unknown [id number] 2.16.840.1.589375.3.579.2.462 Unknown [id number] 2.840.1.174892.3.579.2.462 Unknown [id number] 2.840.1.632113.3.579.2.462 Unknown [id number] 2.840.1.303475.3.579.2.462 Unknown [id number] 2.840.1.918024.3.579.2.462 Unknown [id number] 2.840.1.768402.3.579.2.462 Unknown [id number] 2.840.1.646330.3.579.2.462 Unknown [id number] 2.840.1.415497.3.579.2.462 Unknown [id number] 2.840.1.468944.3.579.2.462 Unknown [id number] 2.840.1.202692.3.579.2.462 Unknown [id number] 2.840.1.729706.3.579.2.462 Unknown [id number] 2.840.1.852854.3.579.2.462 Unknown [id number] 2.840.1.897914.3.579.2.462 Unknown [id number] 2.840.1.553018.3.579.2.462 Unknown [id number] 2.16.840.1.984725.3.579.2.462 Unknown [id number] 2.840.1.826228.3.579.2.462 Unknown [id number] 2.16.840.1.050343.3.579.2.462 Unknown [id number] 2.16.840.1.163529.3.579.2.462 Unknown [id number] 2.16.840.1.392513.3.579.2.462 Unknown [id number] 2.16.840.1.317938.3.579.2.462 Social History Date Type Detail Facility Start: 01-25-2023 End: 08-20-2023 Tobacco smoking status DCIS Unknown if ever smoked [facility] Start: 04-23-2020 None [facility] Start: 2000 Sex Assigned At Female [facility] Start: 06-30-2024 Tobacco smoking stat us [facility] Ex-smoker (finding) [facility] Medical Equipment Procedure Code Equipment Code Equipment Origin al Text Equipment Identifier Dates Blood Sugar Diagnostic (Blood Glucose Test) strip Start: 02-08-2023 Lancets Start: 02-08-2023 Blood Sugar Diagnostic (Blood Glucose Test) strip Start: 02-08-2023 Lancets Start: 02-08-2023 Pen Needle, Diab etic (Bd Ultra-Fine Shelley Pen Needle) 32 gauge x 5/32 needle Start: 02-13-2023 Blood Sugar Diagnostic (Blood Glucose Test) strip Start: 02-08-2023 Lancets Start: 02-08-2023 Pen Needle, Diab etic (Bd Ultra-Fine Shelley Pen Needle) 32 gauge x 5/32 needle Start: 02-13-2023 Blood Sugar Diagnostic (Blood Glucose Test) strip Start: 02-08-2023 Lancets Start: 02-08-2023 Pen Needle, Diab etic (Bd Ultra-Fine Shelley Pen Needle) 32 gauge x 5/32 needle Start: 02-13-2023 Blood Sugar Diagnostic (Blood Glucose Test) strip Start: 02-08-2023 Lancets Start: 02-08-2023 Pen Needle, Diab etic (Bd Ultra-Fine Shelley Pen Needle) 32 gauge x 5/32 needle Start: 02-13-2023 Blood Sugar Diagnostic (Blood Glucose Test) strip Start: 02-08-2023 Lancets Start: 02-08-2023 Pen Needle, Diab etic (Bd Ultra-Fine Shelley Pen Needle) 32 gauge x 5/32 needle Start: 02-13-2023 Blood Sugar Diagnostic (Blood Glucose Test) strip Start: 02-08-2023 Lancets Start: 02-08-2023 Pen Needle, Diab etic (Bd Ultra-Fine Shelley Pen Needle) 32 gauge x 5/32 needle Start: 02-13-2023 Blood Sugar Diagnostic (Blood Glucose Test) strip Start: 02-08-2023 Lancets Start: 02-08-2023 Pen Needle, Diab etic (Bd Ultra-Fine Shelley Pen Needle) 32 gauge x 5/32 needle Start: 02-13-2023 Blood Sugar Diagnostic (Blood Glucose Test) strip Start: 02-08-2023 Lancets Start: 02-08-2023 Pen Needle, Diab etic (Bd Ultra-Fine Shelley Pen Needle) 32 gauge x 5/32 needle Start: 02-13-2023 Blood Sugar Diagnostic (Blood Glucose Test) strip Start: 02-08-2023 Lancets Start: 02-08-2023 Pen Needle, Diab etic (Bd Ultra-Fine Shelley Pen Needle) 32 gauge x 5/32 needle Start: 02-13-2023 Blood Sugar Diagnostic (Blood Glucose Test) strip Start: 02-08-2023 Lancets Start: 02-08-2023 Pen Needle, Diab etic (Bd Ultra-Fine Shelley Pen Needle) 32 gauge x 5/32 needle Start: 02-13-2023 Blood Sugar Diagnostic (Blood Glucose Test) strip Start: 02-08-2023 End: 09-04-2023 Lancets misc Start: 02-08-2023 End: 09-04-2023 Pen Needle, Diab etic (Bd Ultra-Fine Shelley Pen Needle) 32 gauge x 5/32 needle Start: 02-13-2023 End: 09-04-2023 Blood Sugar Diagnostic (Blood Glucose Test) strip Start: 02-08-2023 End: 09-04-2023 Lancets misc Start: 02-08-2023 End: 09-04-2023 Pen Needle, Diab etic (Bd Ultra-Fine Shelley Pen Needle) 32 gauge x 5/32 needle Start: 02-13-2023 End: 09-04-2023 Blood Sugar Diagnostic (Blood Glucose Test) strip Start: 02-08-2023 End: 09-04-2023 Lancets misc Start: 02-08-2023 End: 09-04-2023 Pen Needle, Diab etic (Bd Ultra-Fine Shelley Pen Needle) 32 gauge x 5/32 needle Start: 02-13-2023 End: 09-04-2023 Blood Sugar Diagnostic (Blood Glucose Test) strip Start: 02-08-2023 End: 09-04-2023 Lancets misc Start: 02-08-2023 End: 09-04-2023 Pen Needle, Diab etic (Bd Ultra-Fine Shelley Pen Needle) 32 gauge x 5/32 needle Start: 02-13-2023 End: 09-04-2023 Blood Sugar Diagnostic (Blood Glucose Test) strip Start: 02-08-2023 End: 09-04-2023 Lancets misc Start: 02-08-2023 End: 09-04-2023 Pen Needle, Diab etic (Bd Ultra-Fine Shelley Pen Needle) 32 gauge x 5/32 needle Start: 02-13-2023 End: 09-04-2023 Blood Sugar Diagnostic (Blood Glucose Test) strip Start: 02-08-2023 End: 09-04-2023 Lancets misc Start: 02-08-2023 End: 09-04-2023 Pen Needle, Diab etic (Bd Ultra-Fine Shelley Pen Needle) 32 gauge x 5/32 needle Start: 02-13-2023 End: 09-04-2023 Blood Sugar Diagnostic (Blood Glucose Test) strip Start: 02-08-2023 End: 09-04-2023 Lancets misc Start: 02-08-2023 End: 09-04-2023 Pen Needle, Diab etic (Bd Ultra-Fine Shelley Pen Needle) 32 gauge x 5/32 needle Start: 02-13-2023 End: 09-04-2023 Blood Sugar Diagnostic (Blood Glucose Test) strip Start: 02-08-2023 End: 09-04-2023 Lancets misc Start: 02-08-2023 End: 09-04-2023 Pen Needle, Diab etic (Bd Ultra-Fine Shelley Pen Needle) 32 gauge x 5/32 needle Start: 02-13-2023 End: 09-04-2023 Blood Sugar Diagnostic (Blood Glucose Test) strip Start: 02-08-2023 End: 09-04-2023 Lancets misc Start: 02-08-2023 End: 09-04-2023 Pen Needle, Diab etic (Bd Ultra-Fine Shelley Pen Needle) 32 gauge x 5/32 needle Start: 02-13-2023 End: 09-04-2023 Blood Sugar Diagnostic (Blood Glucose Test) strip Start: 02-08-2023 End: 09-04-2023 Lancets misc Start: 02-08-2023 End: 09-04-2023 Pen Needle, Diab etic (Bd Ultra-Fine Shelley Pen Needle) 32 gauge x 5/32 needle Start: 02-13-2023 End: 09-04-2023 Blood Sugar Diagnostic (Blood Glucose Test) strip Start: 02-08-2023 End: 09-04-2023 Lancets misc Start: 02-08-2023 End: 09-04-2023 Pen Needle, Diab etic (Bd Ultra-Fine Shelley Pen Needle) 32 gauge x 5/32 needle Start: 02-13-2023 End: 09-04-2023 Blood Sugar Diagnostic (Blood Glucose Test) strip Start: 02-08-2023 End: 09-04-2023 Lancets misc Start: 02-08-2023 End: 09-04-2023 Pen Needle, Diab etic (Bd Ultra-Fine Shelley Pen Needle) 32 gauge x 5/32 needle Start: 02-13-2023 End: 09-04-2023 Blood Sugar Diagnostic (Blood Glucose Test) strip Start: 02-08-2023 End: 09-04-2023 Lancets misc Start: 02-08-2023 End: 09-04-2023 Pen Needle, Diab etic (Bd Ultra-Fine Shelley Pen Needle) 32 gauge x 5/32 needle Start: 02-13-2023 End: 09-04-2023 Blood Sugar Diagnostic (Blood Glucose Test) strip Start: 02-08-2023 End: 09-04-2023 Lancets misc Start: 02-08-2023 End: 09-04-2023 Pen Needle, Diab etic (Bd Ultra-Fine Shelley Pen Needle) 32 gauge x 5/32 needle Start: 02-13-2023 End: 09-04-2023 Blood Sugar Diagnostic (Blood Glucose Test) strip Start: 02-08-2023 End: 09-04-2023 Lancets misc Start: 02-08-2023 End: 09-04-2023 Pen Needle, Diab etic (Bd Ultra-Fine Shelley Pen Needle) 32 gauge x 5/32 needle Start: 02-13-2023 End: 09-04-2023 Blood Sugar Diagnostic (Blood Glucose Test) strip Start: 02-08-2023 End: 09-04-2023 Lancets misc Start: 02-08-2023 End: 09-04-2023 Pen Needle, Diab etic (Bd Ultra-Fine Shelley Pen Needle) 32 gauge x 5/32 needle Start: 02-13-2023 End: 09-04-2023 Goals Date Patient Goal Desired Activity /State Mental Status Date Assessment Result Facility 08-22-2023 Cognitive function Awake;Alert;A ppropriate;Fol lows Commands [facility] Work Phone: Clinical Notes 01-25-2023 to 01-26-2025 Note Date & Type Note Facility 01-26-2025 Radiology Diagnostic study note [facility] Imaging Services [address] [place] [address] OB Biophysical Prof W/O NST MR#: [id number] Acct: [id number] Name: AZAEL SULTANA Rep #: [id number] : 2000 F 24 From: Guille Eugene MD PCP: MING Sagastume Status: REG C DEREK Study:OB Biophysical Prof W/O NST Date of Exa m: 01/22/25 Exam# [id number] Ordering Dr: Fadumo Zhang MD PROCEDURE: OB BIOPHYSICAL PROF W/O NST 01/22/2025 REASON FOR EXAM: WELL BEING TECHNIQUE: OB BIOPHYSICAL PROF W/O NST COMPARISON: Prior study dated January 08, 2025. FINDINGS Number: 1 Position: Vertex Placental Position: Anterior and not low-lying Placental Abnormalities: No evidence of previa. ESTIMATED GESTATIONAL AGE: Baseline: 37 weeks and 6 days Delete ESTIMATED DATE OF DELIVERY: Baseline: February 06, 2025. BIOPHYSICAL ASSESSMENT: Amniotic Fluid Volume: 6.6 cm Amniotic Fluid Index: 17 (8-24 cm normal range) Cardiac Motion: 153 beats per minute (average) Trunk and Limb Motion: Present. MATERNAL ANATOMY: Adnexa: Neither maternal ovary is successfully identified. Biophysical profile: Breathing movements: 2 Gross body movements: 2 tone: 2 Amniotic fluid volume: 2 Total score: 8/8 US/OB Biophysical Prof W/O NST IMPRESSION: Normal biophysical profile with a score of 8/8. Reading Location: [id number] CC: INSPECTING MACHINE ADJUSTER-C Bird Ruiz; Dr. Fadumo Zelaya MD ~ Pulp Piler: Signed [facility] 01-21-2025 Radiology Diagnostic study note [facility] Imaging Services [address] [place], [place] [id number] OB Limited With Biometrics MR#: [id number] Acct: [id number] Name: AZAEL SULTANA Rep #: [id number] : 2000 F 24 From: Zahra Puckett MD PCP: MING Sagastume Status: REG C DEREK Study:OB Limited With Biometrics Date of Exam : 01/16/25 Exam# [id number] Ordering Dr: Marietta Ghosh CNM PROCEDURE: OB [...] LILLY CC: RACHAEL Ghosh; MING Ruiz ~ Pulp Piler: Signed [facility] 01-16-2025 Progress note [facility] 01-16-2025 Progress note Note Date/Time January 16, 2025 4:31pm [facility]alt [facility] [address], [address] [place] [address] OFFICE VISIT Date of Service: 01/16/25 MR#: [id number] Acct: [id number] Name: AZAEL SULTANA Rep #: [id number] : 2000 Provider: Dr. Reddy Zelaya MD Age/Sex: 24/F Location: [facility] Status: Signed Intake Vital Signs 12/11/24 15:58 01/13/25 19:19 01/16/25 16:03 01/16/25 16:07 Height 5 ft 3 in 5 ft 3 in 5 ft 3 in 5 ft 3 in Weight: 272 lb 2 oz BMI 48.2 BP 121/83 H Intake Visit Reasons: 37wk ob *csection Chief Complaint: 37 Week OB 3D Artist Required: No Is patient in pain?: No Allergies adhesive tape Allergy (Mild, Verified 01/16/25 16:02) Rash Medications ?Medication ?Instructions ?Recorded ?Confirmed ?Type multivit-min no.71-iron fum 28 300 cap PO DAILY pregna ncy 01/11/23 01/16/25 History mg-folate no.1 1 mg-dha 300 mg capsule (PNV-Windsor) ondansetron 4 mg disintegrating 4 mg PO Q4H PRN nausea and 06/18/24 01/16/25 Rx tablet vomiting #60 tabs metoclopramide HCl 10 mg tablet 10 mg PO TID nausea #9 0 tabs 08/27/24 01/16/25 Rx (Reglan) 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 sensor (FreeStyle #1 ea 12/03/24 5 Rx Dot 3 Sensor device) 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,behavioral consultant,cont #1 ea 12/03/24 01/16/25 Rx (FreeStyle Dot 3 [place]) insulin degludec 100 unit/mL (3 46 unit [...] 2 current occupational status: employed current occupation: [employer] current occupational exposures/hazards: No pets and animals: [...] physical activity do you participate in: none matt/sabianist: None seatbelt use: always do you feel safe at home: Yes additional social history: Patient works at [employer]- Works at [employer] History 4 Elective abortions Hx Para 2 Spontaneous abortions 1 Hx # Term Pregnancies 2 Ectopic pregnancies Hx # Pregnancies Multiple births # of living children 2 Past Pregnancies Del. Date Name GA/Weeks Outcome Route Bth Weight Infant Gen Labor Lgth Anesthesia Del Locatn Provider FOB 07/20/20 Andre 37 live - full term vacuum 8# 11oz Male [facility] Alex 08/20/23 Radames Elizondo 38 live - full term 7lbs 8oz Male [facility] SM Delivery Date: 07/20/20 Last Updated by: [...] 4 weeks- requesting to do them at [facility] because insurance lapsed. 10/31/24 -?-?-?-?-?-?-?-?-?-?-?-?- 26w 0d [...] today. To [facility] for further evaluation/discussed with NORA 01/16/25 -?-?-?-?-?-?-?-?-?-?-?-?- 37w 0d 272 lb 2 [...] Cosigner Signature: Date (if applicable) CC: ~ [place] [employer] Work Phone: 1(787) 358-227807-10-2025 Radiology Diagnostic study note [facility] Imaging Services [address] [place] [address] OB Biophysical Prof W/O NST MR#: [id number] Acct: [id number] Name: AZAEL SULTANA Rep #: [id number] : 2000 F 24 From: Guille Eugene MD PCP: MING Sagastume Status: REG C DEREK Study:OB Biophysical Prof W/O NST Date of Exa m: 01/08/25 Exam# [id number] Ordering Dr: Fadumo Zhang MD PROCEDURE: OB [...] biophysical profile score of 8/8 Reading Location: [facility] CC: MING Ruiz; Dr. Fadumo Zelaya MD ~ Pulp Piler: Signed [facility]07-06-2025 Radiology Diagnostic study note [facility] Imaging Services [address] [place] [address] OB Biophysical Prof W/O NST MR#: [id number] Acct: [id number] Name: AZAEL SULTANA Rep #: [id number] : 2000 F 24 From: Pet Peer DO PCP: MING Sagastume Status: REG C LI Study:OB Biophysical Prof W/O NST Date of Exa m: 01/01/25 Exam# [id number] Ordering Dr: Fadumo Zhang MD PROCEDURE: OB [...] IMPRESSION: Biophysical profile score: 8/8 Reading Location: [facility] CC: MING Ruiz; Dr. Fadumo Zelaya MD ~ Pulp Piler: Signed [facility]06-27-2025 Progress [facility] [address], [address] [place] [address] OFFICE VISIT Date of Service: 12/26/24 MR#: [id number] Acct: [id number] Name: AZAEL SULTANA Rep #: [id number] : 2000 Provider: Dr. Reddy Zelaya MD Age/Sex: 24/F Location: [facility] Status: Signed Intake Vital Signs 07/03/24 13:01 12/16/24 10:39 12/26/24 14:26 12/26/24 14:28 Height 5 ft 3 in 5 ft 3 in 5 ft 3 in 5 ft 3 in Weight: 264 lb 6 oz BMI 46.8 BP 138/82 H Intake Visit Reasons: 34 WK OB 3D Artist Required: No Is patient in pain?: No Allergies adhesive tape Allergy (Mild, Verified 12/26/24 14:26) Rash Medications ?Medication ?Instructions ?Recorded ?Confirmed ?Type multivit-min no.71-iron fum 28 300 cap PO DAILY pregna ncy 01/11/23 12/26/24 History mg-folate no.1 1 mg-dha 300 mg capsule (PNV-Windsor) ondansetron 4 mg disintegrating 4 mg PO Q4H PRN nausea and 06/18/24 12/26/24 Rx tablet vomiting #60 tabs metoclopramide HCl 10 mg tablet 10 mg PO TID nausea #9 0 tabs 08/27/24 12/26/24 Rx (Reglan) 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 sensor (FreeStyle #1 ea 12/03/24 5 Rx Dot 3 Sensor device) 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,behavioral consultant,cont #1 ea 12/03/24 12/26/24 Rx (FreeStyle Dot 3 [place]) metformin 1,000 mg tablet 1,000 mg PO [...] 2 current occupational status: employed current occupation: [employer] current occupational exposures/hazards: No pets and animals: [...] physical activity do you participate in: none matt/sabianist: None seatbelt use: always do you feel safe at home: Yes additional social history: Patient works at [employer]- Works at [employer] History 4 Elective abortions Hx Para 2 Spontaneous abortions 1 Hx # Term Pregnancies 2 Ectopic pregnancies Hx # Pregnancies Multiple births # of living children 2 Past Pregnancies Del. Date Name GA/Weeks Outcome Route Bth Weight Gen Labor Lgth Anesthesia Del Locatn Provider FOB 07/20/20 Andre 37 live - full term vacuum 8# 11oz Male [facility] Alex 08/20/23 Radameslizz Elizondo 38 live - full term 7lbs 8oz Male [facility] Delivery Date: 07/20/20 Last Updated by: Fadumo [...] 4 weeks- requesting to do them at [facility] because insurance lapsed. 10/31/24 -?-?-?-?-?-?-?-?-?-?-?-?- 26w 0d [...] on 12/26/24 14: 39 Off Ur Spec [place] 1.025 Last Edit by Maribel Crisostomo on [...] POC Urinalysis Dip (Clinic) Today Dr. Evelin Cardona, R10.2 - Pelvic and perineal pain CBC [...] trimester, R51.9 - Headache, unspecified 12/26/24 1450 irena LUNA> Date _ [facility] Signature: Date (if applicable) CC: ~ [facility]06-27-2025 Progress note Author Fadumo Zelaya [facility] Services Note Date/Time December 26, 2024 2:49 pm [facility] [address], [address] [place] [address] OFFICE VISIT Date of Service: 12/26/24 MR#: [id number] Acct: [id number] Name: KAYYAZAEL MUÑOZ Rep #: [id number] : 2000 Provider: Dr. Reddy Zelaya MD Age/Sex: 24/F [place] [facility] Status: Signed Intake Vital Signs 07/03/24 13:01 12/16/24 10:39 12/26/24 14:26 06/27/25 14:28 Height 5 ft 3 in 5 ft 3 in 5 ft 3 in 5 ft 3 in Weight: 264 lb 6 oz BMI 46.8 BP 138/82 H Intake Visit Reasons: 34 WK OB 3D Artist Required: No Is patient in pain?: No Allergies adhesive tape Allergy (Mild, Verified 12/26/24 14:26) Rash Medications ?Medication ?Instructions ?Recorded ?Confirmed ?Type multivit-min no.71-iron fum 28 300 cap PO DAILY pregna ncy 01/11/23 12/26/24 History mg-folate no.1 1 mg-dha 300 mg capsule (PNV-Windsor) ondansetron 4 mg disintegrating 4 mg PO Q4H PRN nausea and 06/18/24 12/26/24 Rx tablet vomiting #60 tabs metoclopramide HCl 10 mg tablet 10 mg PO TID nausea #9 0 tabs 08/27/24 12/26/24 Rx (Reglan) 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 sensor (FreeStyle #1 ea 12/03/24 5 Rx Dot 3 Sensor device) 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,behavioral consultant,cont #1 ea 12/03/24 12/26/24 Rx (FreeStyle Dot 3 [place]) metformin 1,000 mg tablet 1,000 mg PO [...] 2 current occupational status: employed current occupation: [employer] current occupational exposures/hazards: No pets and animals: [...] physical activity do you participate in: none matt/sabianist: None seatbelt use: always do you feel safe at home: Yes additional social history: Patient works at [employer]- Works at [employer] History 4 Elective abortions Hx Para 2 Spontaneous abortions 1 Hx # Term Pregnancies 2 Ectopic pregnancies Hx # Pregnancies Multiple births # of living children 2 Past Pregnancies Del. Date Name GA/Weeks Outcome Route Bth Weight Gen Labor Lgth Anesthesia Del Locatn Provider FOB 07/20/20 Andre 37 live - full term vacuum 8# 11oz Male [facility] Alex 08/20/23 Radames Elizondo 38 live - full term 7lbs 8oz Male [facility] Delivery Date: 07/20/20 Last Updated by: Fadumo [...] 4 weeks- requesting to do them at [facility] because insurance lapsed. 10/31/24 -?-?-?-?-?-?-?-?-?-?-?-?- 26w 0d [...] on 12/26/24 14: 39 Off Ur Spec [place] 1.025 Last Edit by Maribel Crisostomo on [...] Comment: PRR, , ANNA MARIE 02/06/25, PC AndreRadames, Andre- goes by Reuben (12) : Status: Acute Qualifiers: Weeks of gestation: 34 weeks Qualified Code(s): Z3A.34 - 34 weeks gestation of Comment: NIPT low risk (13) Previous section: Status: Acute (14) Pelvic floor dysfunction in female: Status: Acute (15) Allergy to adhesive tape: Status: Acute Orders: Orders POC Urinalysis Dip (Clinic) Today Dr. Evelin Cardona, DO R10.2 - Pelvic and perineal pain [...] Cosigner Signature: Date (if applicable) CC: ~ [place] [employer] Work Phone: 1(448) 376-325906-19-2025 Radiology Diagnostic study note [facility] Imaging Services [address] [place] [id number] OB Limited With Biometrics MR#: [id number] Acct: [id number] Name: AZAEL SULTANA Rep #: [id number] : 2000 F 24 From: Guille Eugene MD PCP: MING Sagastume Status: REG C DEREK Study:OB Limited With Biometrics Date of Exam : 12/17/24 Exam# [id number] Ordering Dr: Marietta Ghosh CNM PROCEDURE: OB [...] of 33 weeks and 3days. Reading Location: [place] [address] CC: RACHAEL Ghosh; MING Ruiz ~ Pulp Piler: Signed [facility]06-12-2025 Progress [facility] [address], [address] [place] [address] OFFICE VISIT Date of Service: 12/11/24 MR#: [id number] Acct: [id number] Name: AZAEL SULTANA Rep #: [id number] : 2000 Provider: MING Blackmon Age/Sex: 24/F Location[place] [facility] Status: Signed Intake Vital Signs 07/03/24 13:01 11/11/24 15:03 12/11/24 15:51 12/11/24 15:58 Height 5 ft 3 in 5 ft 3 in 5 ft 3 in 5 ft 3 in Weight: 263 lb 4 oz BMI 46.6 BP 124/78 H Intake Visit Reasons: 32 WK OB Chief Complaint: 32 Week OB 3D Artist Required: No Is patient in pain?: No Allergies adhesive tape Allergy (Mild, Verified 12/11/24 15:49) Rash Medications ?Medication ?Instructions ?Recorded ?Confirmed ?Type multivit-min no.71-iron fum 28 300 cap PO DAILY pregna ncy 01/11/23 12/11/24 History mg-folate no.1 1 mg-dha 300 mg capsule (PNV-Windsor) ondansetron 4 mg disintegrating 4 mg PO Q4H PRN nausea and 06/18/24 12/11/24 Rx tablet vomiting #60 tabs metoclopramide HCl 10 mg tablet 10 mg PO TID nausea #9 0 tabs 08/27/24 12/11/24 Rx (Reglan) flash glucose scanning reader #1 ea 11/12/24 12/11/24 Rx (FreeStyle Dot 2 [place]) flash glucose sensor (FreeStyle #1 ea 11/12/24 5 Rx Dot 2 Sensor kit) 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 sensor (FreeStyle #1 ea 12/03/24 5 Rx Dot 3 Sensor device) 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,behavioral consultant,cont #1 ea 12/03/24 12/11/24 Rx (FreeStyle Dot 3 [place]) Last Menstrual Period: 05/02/24 Zika: Zika virus screening: Negative : No PFSH PFSH Medical History Seasonal allergies Hx of chlamydia infection Adopted Chlamydia infection affecting Anxiety Surgical History History of dental surgery Family History Mother Diabetes Grandfather Diabetes Social History adopted: Yes (limited family medical history known) household members: spouse, family and children number of children: 2 current occupational status: employed current occupation: [employer] current occupational exposures/hazards: No pets and animals: [...] physical activity do you participate in: none matt/sabianist: None seatbelt use: always do you feel safe at home: Yes additional social history: Patient works at [employer]- Works at [employer] History 4 Elective abortions Hx Para 2 Spontaneous abortions 1 Hx # Term Pregnancies 2 Ectopic pregnancies Hx # Pregnancies Multiple births # of living children 2 Past Pregnancies Del. Date Name GA/Weeks Outcome Route Bth Weight Infant Gen Labor Lgth Anesthesia Del Locatn Provider FOB 07/20/20 Andre 37 live - full term vacuum 8# 11oz Male [facility] Alex 08/20/23 Radamse Elizondo 38 live - full term 7lbs 8oz Male [facility] SM Delivery Date: 07/20/20 Last Updated by: [...] 4 weeks- requesting to do them at [facility] because insurance lapsed. 10/31/24 -?-?-?-?-?-?-?-?-?-?-?-?- 26w 0d [...] care and follow up. 12/11/24 1614 s INSPECTING MACHINE ADJUSTER INSPECTING MACHINE ADJUSTER-C> Date _ Anisa Blackmon NP INSPECTING MACHINE ADJUSTER-C Cosigner Signature: Date (if applicable) CC: ~ [facility]06-12-2025 Progress note Author Anisa Blackmon [facility] Note Date/Time December 11, 2024 4:14 pm [facility] [address] [place] [address], [address] [place] [address] OFFICE VISIT Date of Service: 12/11/24 MR#: [id number] Acct: [id number] Name: AZAEL SULTANA Rep #: [id number] : 2000 Provider: MING Blackmon Age/Sex: 24/F Location: [facility] Status: Signed Intake Vital Signs 07/03/24 13:01 11/11/24 15:03 12/11/24 15:51 12/11/24 15:58 Height 5 ft 3 in 5 ft 3 in 5 ft 3 in 5 ft 3 in Weight: 263 lb 4 oz BMI 46.6 BP 124/78 H Intake Visit Reasons: 32 WK OB Chief Complaint: 32 Week OB 3D Artist Required: No Is patient in pain?: No Allergies adhesive tape Allergy (Mild, Verified 12/11/24 15:49) Rash Medications ?Medication ?Instructions ?Recorded ?Confirmed ?Type multivit-min no.71-iron fum 28 300 cap PO DAILY pregna ncy 01/11/23 12/11/24 History mg-folate no.1 1 mg-dha 300 mg capsule (PNV-Windsor) ondansetron 4 mg disintegrating 4 mg PO Q4H PRN nausea and 06/18/24 12/11/24 Rx tablet vomiting #60 tabs metoclopramide HCl 10 mg tablet 10 mg PO TID nausea #9 0 tabs 08/27/24 12/11/24 Rx (Reglan) flash glucose scanning reader #1 ea 11/12/24 12/11/24 Rx (FreeStyle Dot 2 [place]) flash glucose sensor (FreeStyle #1 ea 11/12/24 5 Rx Dot 2 Sensor kit) 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 sensor (FreeStyle #1 ea 12/03/24 5 Rx Dot 3 Sensor device) 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,behavioral consultant,cont #1 ea 12/03/24 12/11/24 Rx (FreeStyle Dot 3 [place]) Last Menstrual Period: 05/02/24 Zika: Zika virus screening: Negative : No PFSH PFSH Medical History Seasonal allergies Hx of chlamydia infection Adopted Chlamydia infection affecting Anxiety Surgical History History of dental surgery Family History Mother Diabetes Grandfather Diabetes Social History adopted: Yes (limited family medical history known) household members: spouse, family and children number of children: 2 current occupational status: employed current occupation: [employer] current occupational exposures/hazards: No pets and animals: [...] physical activity do you participate in: none matt/sabianist: None seatbelt use: always do you feel safe at home: Yes additional social history: Patient works at [employer]- Works at [employer] History 4 Elective abortions Hx Para 2 Spontaneous abortions 1 Hx # Term Pregnancies 2 Ectopic pregnancies Hx # Pregnancies Multiple births # of living children 2 Past Pregnancies Del. Date Name GA/Weeks Outcome Route Bth Weight Infant Gen Labor Lgth Anesthesia Del Locatn Provider FOB 07/20/20 Andre 37 live - full term vacuum 8# 11oz Male [facility] Alex 08/20/23 Radames Elizondo 38 live - full term 7lbs 8oz Male [facility] SM Delivery Date: 07/20/20 Last Updated by: [...] 4 weeks- requesting to do them at [facility] because insurance lapsed. 10/31/24 -?-?-?-?-?-?-?-?-?-?-?-?- 26w 0d [...] Continue routine care and follow up. 12/11/24 3569 <Electronically signed by Anisa rueda INSPECTING MACHINE ADJUSTER INSPECTING MACHINE ADJUSTER-C> Date _ Anisa Shasta INSPECTING MACHINE ADJUSTER INSPECTING MACHINE ADJUSTER-C Cosigner Signature: Date (if applicable) CC: ~ [facility] Work Phone: 1(358) 295-564205-13-2025 Progress [facility] [address] [place] [address], [address] [place] [address] OFFICE VISIT Date of Service: 11/11/24 MR#: [id number] Acct: [id number] Name: AZAEL SULTANA Rep #: [id number] : 2000 Provider: RACHAEL Ghosh Age/Sex: 24/F [place] [facility] Status: Signed Intake Vital Signs 10/31/24 14:10 11/11/24 15:03 Height 5 ft 3 in 5 ft 3 in Weight: 264 lb 4 oz 261 lb 8 oz BMI 46.7 46.3 BP 129/84 H 120/82 H Intake Visit Reasons: 28 wk ob/glucose Chief Complaint: 28wk OB 3D Artist Required: No Is patient in pain?: No Allergies adhesive tape Allergy (Mild, Verified 11/11/24 15:01) Rash Medications ?Medication ?Instructions ?Recorded ?Confirmed ?Type multivit-min no.71-iron fum 28 300 cap PO DAILY pregna ncy 01/11/23 11/11/24 History mg-folate no.1 1 mg-dha 300 mg capsule (PNV-Windsor) ondansetron 4 mg disintegrating 4 mg PO [...] 2 current occupational status: employed current occupation: [employer] current occupational exposures/hazards: No pets and animals: [...] physical activity do you participate in: none matt/sabianist: None seatbelt use: always do you feel safe at home: Yes additional social history: Patient works at [employer]- Works at [employer] History 4 Elective abortions Hx Para 2 Spontaneous abortions 1 Hx # Term Pregnancies 2 Ectopic pregnancies Hx # Pregnancies Multiple births # of living children 2 Past Pregnancies Del. Date Name GA/Weeks Outcome Route Bth Weight Gen Labor Lgth Anesthesia Del Locatn Provider FOB 07/20/20 Andre 37 live - full term vacuum 8# 11oz Male [facility] Alex 08/20/23 Radames Elizondo 38 live - full term 7lbs 8oz Male [facility] SM Delivery Date: 07/20/20 Last Updated by: [...] 4 weeks- requesting to do them at [facility] because insurance lapsed. 10/31/24 -?-?-?-?-?-?-?-?-?-?-?--?- 26w 0d [...] ANNA MARIE 02/06/25, PC Radames Powell, Andre- rachel by Reuben (11) : Status: Acute Qualifiers: [...] the past year?: No 11/11/24 1527 s RACHAEL> Date _ [place] Augie RACHAEL Cosigner Signature: Date (if applicable) CC: ~ [facility]05-13-2025 Progress note Author [place] Ghosh [facility] Note Date/Time November 11, 2024 3:27p [facility] [address], [address] [place] [address] OFFICE VISIT Date of Service: 11/11/24 MR#: [id number] Acct: [id number] Name: KAYYAZAELCURT MUÑOZ Rep #: [id number] : 2000 Provider: RACHAEL Ghosh Age/Sex: 24/F Location[place] [facility] Status: Signed Intake Vital Signs 10/31/24 14:10 11/11/24 15:03 Height 5 ft 3 in 5 ft 3 in Weight: 264 lb 4 oz 261 lb 8 oz BMI 46.7 46.3 BP 129/84 H 120/82 H Intake Visit Reasons: 28 wk ob/glucose Chief Complaint: 28wk OB 3D Artist Required: No Is patient in pain?: No Allergies adhesive tape Allergy (Mild, Verified 11/11/24 15:01) Rash Medications ?Medication ?Instructions ?Recorded ?Confirmed ?Type multivit-min no.71-iron fum 28 300 cap PO DAILY pregna ncy 01/11/23 11/11/24 History mg-folate no.1 1 mg-dha 300 mg capsule (PNV-Windsor) ondansetron 4 mg disintegrating 4 mg PO [...] 2 current occupational status: employed current occupation: [employer] current occupational exposures/hazards: No pets and animals: [...] physical activity do you participate in: none matt/sabianist: None seatbelt use: always do you feel safe at home: Yes additional social history: Patient works at [employer]- Works at [employer] History 4 Elective abortions Hx Para 2 Spontaneous abortions 1 Hx # Term Pregnancies 2 Ectopic pregnancies Hx # Pregnancies Multiple births # of living children 2 Past Pregnancies Del. Date Name GA/Weeks Outcome Route Bth Weight Infant Gen Labor Lgth Anesthesia Del Locatn Provider FOB 07/20/20 Andre 37 live - full term vacuum 8# 11oz Male [facility] Alex 08/20/23 Radameslizz Nayakon 38 live - full term 7lbs 8oz Male [facility] SM Delivery Date: 07/20/20 Last Updated by: [...] 4 weeks- requesting to do them at [facility] because insurance lapsed. 10/31/24 -?-?-?-?-?-?-?-?-?-?-?--?- 26w 0d [...] Cosigner Signature: Date (if applicable) CC: ~ [place] [employer] Work Phone: 1(828) 367-717304-03-2025 Evaluation note* Diagnosis Onset Date Resolution Status [...] of high-risk acute December 26, 2024 2:34pm [facility] Work Phone: 1([phone]) 268-925404-03-2025 Evaluation note* Diagnosis Onset Date Resolution Status [...] of high-risk acute January 08, 2025 1:46pm [facility] [employer] Work Phone: 1([phone]) 637-680704-03-2025 Evaluation note* Diagnosis Onset Date Resolution Status [...] October 31, 2024 2:01pm Circumvallate placenta acute 2024 2:01pm History of miscarriage, currently acute [...] acute January 08 1:46pm Circumvallate placenta acute Ju 2024 1:46pm Gestational diabetes mellitu s (GDM) [...] 1:46pm acute January 08 1:46pm Previous section January 08, 2025 1:46pm Supervision of high-risk acute January 08, 2025 1:46pm [facility] Work Phone: 1(344) 481-408004-03-2025 Evaluation note* Diagnosis Onset Date Resolution Status [...] December 11 3:47pm Circumvallate placenta acute Ju ne 12th, 2025 3:47pm Gestational diabetes mellitu s (GDM) affecting [...] acute January 08 12:36pm Circumvallate placenta acute Ju 2024 12:36pm Gestational diabetes mellitu s (GDM) [...] January 13 6:37pm Circumvallate placenta acute Ju 2024 6:37pm Gestational diabetes mellitu s (GDM) [...] acute January 16 4:01pm Circumvallate placenta acute 2024 4:01pm Gestational diabetes mellitu s (GDM) [...] of high-risk acute January 16, 2025 4:01pm [facility] Work Phone: 1(803) 442-863204-03-2025 Evaluation note* Diagnosis Onset Date Resolution Status Admit Date Adopted acute October 02 2:52pm Allergy to adhesive tape acute October 02, 2024 2:52pm Anxiety acute October 02 2:52pm Circumvallate placenta acute 2024 2:52pm History of miscarriage, currently acute [...] acute January 08 12:36pm Circumvallate placenta acute Ju 2024 12:36pm Gestational diabetes mellitu s (GDM) [...] acute January 22 2:43pm Circumvallate placenta acute Ju 2024 2:43pm Gestational diabetes mellitu s (GDM) [...] of high-risk acute January 22, 2025 2:43pm [facility] Work Phone: [phone]) 792-831204-03-2025 Evaluation note* Diagnosis Onset Date Resolution Status [...] acute January 08 12:36pm Circumvallate placenta acute Ju 2024 12:36pm Gestational diabetes mellitu s (GDM) [...] January 13, 2025 6:37pm Headache in resolved Navid 2024 6:37pm Adopted acute January 16 4:01pm Allergy [...] acute January 22 2:43pm Circumvallate placenta acute Ju ly 2024 2:43pm Gestational diabetes mellitu s (GDM) [...] of high-risk acute January 22, 2025 2:43pm Adopted acute January 29 2:58pm Allergy to adhesive tape acute January 29, 2025 2:58pm Anxiety acute January 29 2:58pm Circumvallate placenta acute 2024 2:58pm Gestational diabetes mellitu s (GDM) affecting , antepartum acute January 29, 2025 2:58pm History of miscarriage, currently acute January 29 2:58pm History of pre-eclampsia in prior , currently acute January 29, 2025 2:58pm Hx of gestational diabetes i n prior , currently acute January 29, 2025 2:58pm Marijuana use acute January 29, 2025 2:58pm Mild depression acute December 2:58pm Obesity affecting acute January 29, 2025 2:58pm Pelvic floor dysfunction in female acute January 29, 2025 2:58pm acute January 29 2:58pm Previous section acute January 29, 2025 2:58pm Supervision of high-risk acute January 29, 2025 2:58pm [facility] Work Phone: 1(434) 666-599502-26-2025 Evaluation note* Diagnosis Onset Date Resolution Status [...] of high-risk acute December 11, 2024 3:47pm [facility] Work Phone: [phone] 365-202402-26-2025 Evaluation note* Diagnosis Onset Date Resolution Status [...] 2 :55pm Marijuana use acute November 11, 2:55pm Mild depression acute November 11, 2024 [...] , antepartum acute December 16, 2024 10:37am [facility] Work Phone: 1(505) 845-739201-31-2025 Evaluation note* Diagnosis Onset Date Resolution Status [...] August 01 11:34am Left shoulder strain resolved Rodolfo diana 2024 11:34am Right shoulder strain resolved Joselito uary 2024 11:34am Adopted acute August 27, 2024 [...] 2024 2:55pm History of miscarriage, currently acute May 13th, 202 5 2:55pm History of pre-eclampsia in prior , [...] high-risk acute November 11, 2024 2 :55pm [facility] Work Phone: 1([phone]) 901-349902-21-2024 Progress note Author Anisa Blackmon [facility] August 22, 2023 7:55am Note Date/Time August 22, 2023 7:55am [facility] Medical Records Department [address] [place] [address] Progress Note - OBGYN 08/22/23 0753 MR#: [id number] Acct: [id number] Name: AZAEL SULTANA Rep #:[id number] : 2000 22 From: Anisa Blackmon NP INSPECTING MACHINE ADJUSTER-C PCP: MING Sagastume Status:ADM I N Location: [place] [address] Subjective Subjective Patient doing well without complaints. [...] and BP stable 6. home today 08/22/23 8325 <Electronically signed by Anisa Blackmon NP INSPECTING MACHINE ADJUSTER-C> Cosigner Signature (if applicable): CC: ~ Signed [facility] Work Phone: 1(381) 553-942302-20-2024 Discharge summary Author [place] Ghosh [facility] August 21, 2023 4:10pm Note Date/Time August 20, 2023 7:45am [facility] Medical Records Department [address] [place] [address] Instructions for Home/Discharge Instructions 08/20/23 0745 MR#: [id number] Acct: [id number] Name: AZAEL SULTANA Rep #:[id number] : [...] Up With: Fadumo Zelaya MD When: Call [phone] to make an appointment for an incision check in 1-2 weeks. Test Results: Test results from this visit will be discussed in further detail at your follow- up appointment, if applicable. Discharge Plan Admission Admit Date/Time: 08/20/23 05:30 Attending Provider: Fadumo Zelaya Primary Care Provider: Bird Ruiz NP Discharge Orders/Prescriptions Prescriptions: No Action PNV-Windsor 28-1-300 mg capsule 300 cap PO DAILY aspirin 81 mg tablet,delayed release (DR/EC) 81 mg PO DAILY Qty: 90 3RF insulin degludec [Tresiba FlexTouch U-200] 200 unit/mL (3 mL) insulin pen 60 unit subcut DAILY Rx Instructions: 60 units HS (DME) pen needle, diabetic [BD Ultra-Fine Shelley Pen Needle] 32 gauge x 5/32 needle See Rx Instructions .ROUTE .MEDSUPPLY Qty: [...] Referrals / Follow Up: Bird Ruiz NP, INSPECTING MACHINE ADJUSTER-C [Primary Care Provider] - Disposition Disposition (needs filled in before D/C Order can be placed): Home, Self Care 08/21/23 1411<Electronically signed by Fadumo Zelaya MD>Fadumo Zelaya MD CC: INSPECTING MACHINE ADJUSTER-C Bird Ruiz ~ Signed [facility] Work Phone: 1(742) 565-148002-20-2024 Progress note Author [place] Ghosh [facility] August 21, 2023 8:09am Note Date/Time August 21, 2023 8:09am [facility] Medical Records Department [address] [place] [address] Progress Note - OBGYN 08/21/23 0807 MR#: [id number] Acct: [id number] Name: AZAEL SULTANA Rep #:[id number] : 2000 22 From: [place] Ghosh CNM PCP: MING Sagastume Status:ADM I N Location: [place] [address] Subjective Subjective Patient doing well without complaints. [...] Cosigner Signature (if applicable): CC: ~ Signed [facility] Work Phone: 1(776) 512-247302-19-2024 Procedure [facility] 08-20-2023 History and physical note Author Fadumo Zelaya [facility] August 20, 2023 7:40am Note Date/Time August 20, 2023 7:39am [facility] Medical Records Department [address] [facility] [address] History & Physical Exam 08/20/23 0735 MR#: [id number] Acct: [id number] Name: AZAEL SULTANA Rep #:[id number] : 2000 22 From: Fadumo lepe MD PCP: MING Sagastume Status:ADM I N Location: [place] [address] History and Physical Date of Admission: 08/20/23 Vital Signs 05/18/2313:53 08/10/2413:17 08/14/2410:12 08/14/2410:12 Height 5 ft 3 in 5 ft 3 in 5 ft 3 in 5 ft 3 in Weight: 267 lb 2 oz BMI 47.3 BP 124/79 H Intake Visit Reasons: NST 3D Artist Required: No Is patient in pain?: No Allergies No Known Allergies Allergy (Verified 08/14/23 11:11) Medications multivit-min no.71-iron fum 28 mg-folate no.1 1 mg-dha 300 mg capsule (PNV- Windsor) cap PO 01/11/23 [History Confirmed 08/14/23] aspirin 81 mg tablet,delayed release 81 mg PO DAILY #90 tabs 01/25/23 [Rx Confirmed 08/14/23] blood sugar diagnostic (Blood Glucose Test strips) #120 ea 02/08/23 [Rx Confirmed 08/14/23] 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 meter #1 ea 02/08/23 [Rx Confirmed 08/14/23] lancets #200 ea 02/08/23 [Rx Confirmed 08/14/23] BD Ultra-Fine Shelley Pen Needle 32 gauge x 5/32 (pen needle, diabetic) #150 ea 02/13/23 [Rx [...] 1 current occupational status: employed current occupation: [employer] current occupational exposures/hazards: No pets and animals: [...] 1-2 times per week duration: 30-45 minutes/day matt/sabianist: None seatbelt use: always do you feel safe at home: Yes additional social history: Patient works at [employer]- Works at [employer] History 3 Elective abortions Hx Para 1 Spontaneous abortions 1 Hx # Term Pregnancies 1 Ectopic pregnancies Hx # Pregnancies Multiple births # of living children 1 Past Pregnancies Del. Date Name GA/Weeks Outcome Route Bth Weight Gen Labor Lgth Anesthesia Del Locatn Provider FOB 07/20/20 Andre 37 live - full term va cuum Male [facility] Alex Delivery Date: 07/20/20 Last Updated by: Angy Ayon IOL pre-eclampsia VAVD triple I HPI NST Details: AZAEL SULTANA is a 22 year old @ 38w4d who presents for primary low transverse section due to uncontrolled diabetes, increased insulin demands and history of shoulder dystocia with EFW similar to previous infant. patient was counseled regarding risks of shoulder dystocia recurrence and prematurity, and decision is made to proceed with delivery. OB Visit ANNA MARIE Calculator Estimated Delivery Date Method Current WG Current Estimate 08/30/23 LMP (Certain) 38w 3d Other Estimates 09/02/23 Ultrasound #1 38w 0d Expected Delivery Route/Plan [...] 116/82 Negative -?-?-?-?-?-?-?-?-?-?-?-?- Negative 150 28 -?-?-?-?-?-?-?-?-?-?-?-?- -No VB, LOF. Good FM. States insulin same dosage, reports to Dr Vaughan. Audra, tdap, 28 wk labs 06/20/23-?-?-?-?-?-?-?-?-?-?-?-?- 29w 6d 257 lb 5 oz(+17 lb 5 oz) 122/82 Negative -?-?-?-?-?-?-?-?-?-?-?-?- Negative -?-?-?-?-?-?-?-?-?-?-?-?- -nurse visit for vision issues. No headache. Normal [...] 268 lb(+28 lb) 120/76 Negative -?-?-?-?-?-?-?-?-?-?-?-?- Negative [id number] 32 -?-?-?-?-?-?-?-?-?-?-?-?- SM- unable to keep on [...] fm. labor precautions reviewed. Had SD with 5yu23wd (approx 3486g) baby. This baby EFW 3458 [...] gestation: 37 weeks CPT Codes Non-Stress Test (63540) Assessment and Plan Assessment and Plan (1) [...] Zelaya MD> Cosigner Signature (if applicable): CC: INSPECTING MACHINE ADJUSTERRaymundo Ruiz; Dr. Fadumo Zelaya MD~ Signed [facility] Work Phone: 1([phone]) 478-354007-27-2023 NotePap Smear Specimen AdequacyJuly 2022 1:13pmComment.Satisfactory for evaluation. No endocervical component is identified.An endocervical component is not commonly seen in the patient.[facility] A#[id number] Health System [facility] HospitalComment on above: Satisfactory for evaluation. No endocervical component is identified.An endocervical component is not commonly seen in the patient.01-25-2023 NotePap Smear Specimen AdequacyJuly 2022 1:13pmComment.Satisfactory for evaluation. No endocervical component is identified.An endocervical component is not commonly seen in the patient.[facility] A#[id number] Health SystemComment on above:Satisfactory for evaluation. No endocervical component is identified.An endocervical component is not commonly seen in the patient.01-25-2023 NotePap Smear Specimen AdequacyJuly 2022 1:13pmComment.Satisfactory for evaluation. No endocervical component is identified.An endocervical component is not commonly seen in the patient.[facility] A#[id number] Health SystemComment on above: Satisfactory for evaluation. No endocervical [...] Supervision of high risk , antepartum acute [facility] Work Phone: Evaluation note* Diagnosis Onset Date Resolution Status Former cigarette smoker acut e H/O miscarriage, currently acute H/O depression, currently acute H/O pre-eclampsia in prior , currently pregna nt acute History of shoulder dystocia in prior , currently acute Marijuana use acute Obesity affecting acute acute Seasonal allergies acute Supervision of high risk , antepartum acute [facility] Work Phone: Evaluation note* Diagnosis Onset Date [...] H/O miscarriage, currently resolved Seasonal allergies resolved [facility] Work Phone: Evaluation note* Diagnosis Onset Date [...] Supervision of high risk , antepartum acute [facility] Work Phone: Evaluation note* Diagnosis Onset Date [...] Supervision of high risk , antepartum acute [facility] Work Phone: Evaluation note* Diagnosis Onset Date [...] Supervision of high risk , antepartum acute [facility] Work Phone: Evaluation note* Diagnosis Onset Date [...] Supervision of high risk , antepartum acute [facility] Work Phone: Evaluation note* Diagnosis Onset Date [...] Supervision of high risk , antepartum acute [facility] Work Phone: Evaluation note* Diagnosis Onset Date [...] Supervision of high risk , antepartum acute [facility] Work Phone: Evaluation note* Diagnosis Onset Date [...] Supervision of high risk , antepartum acute [facility] Work Phone: Evaluation note* Diagnosis Onset Date [...] Supervision of high risk , antepartum resolved [facility] Work Phone: Reason for referral (narrative)No reason for referral information availableMadison [facility] Work Phone: Summary Purpose Family History Relationship Condition Age at Onset Recorded Date/T roxanne mother Diabetes mellitus Unknown grandfather Diabetes mellitus Unknown Advance Directives Advance Directive Response Recorded Date/ Time Living Will No July 05 2 2:08pm Power of Real Estate Job Titles No July 05, 2 022 2:08pm Advance Directive Response Recorded Date/ Time Living Will No July 05 2 1:08pm Power of Real Estate Job Titles No July 05, 2 022 1:08pm Advance Directive Response Recorded Date/ Time Living Will No June 19, 2 023 2:28pm Power of Real Estate Job Titles No June 19, 2023 2:28pm Advance Directive Response Recorded Date/ Time Living Will No August 20, 2 024 7:05am Power of Real Estate Job Titles No August 20, 2023 7:05am Chief Complaint [...] 1:34am Allergy to adhesive tape August 01 11:34am Anxiety August 01, 2024 1 1:34am [...] July 11:34am Pelvic floor dysfunction in female Scottie ry 2024 11:34am August 01, 2024 1 1:34am Previous section August 01, 2024 11:34am Supervision of high-risk Scottie ry 2024 11:34am Left shoulder strain August [...] August 3:25pm [facility] 3:25[facility] August 27, 2024 3:25pm Previous section August 27, 2024 3:25pm Supervision of high-risk Sachinu diana 2024 3:25pm Left shoulder strain August [...] 11, 2024 3:47 pm Obesity affecting December 11 025 3:47pm Pelvic floor dysfunction in female [...] 3:25pm Pelvic floor dysfunction in female Febru diana 2024 3:25pm February 26th, 2025 3:25pm Previous section August 27, 2024 3:25pm Supervision of high-risk Alcon linky 2024 3:25pm Left shoulder strain August 27, [...] 11, 2024 3:47 pm Obesity affecting December 11 025 3:47pm Pelvic floor dysfunction in female [...] 2024 2:34 pm Obesity affecting December 26, 025 2:34pm Pelvic floor dysfunction in female [...] 2025 12:3 6pm Obesity affecting January 08, 025 12:36pm January 08, 2025 12:3 6pm [...] 2025 1:46 pm Obesity affecting January 08, 1:46pm Pelvic floor dysfunction in female January [...] 2024 2:34 pm Obesity affecting December 26, 025 2:34pm Pelvic floor dysfunction in female [...] 16, 2025 4:01 pm Obesity affecting January 16 2 025 4:01pm Pelvic floor dysfunction in female [...] 11, 2024 2:55pm Supervision of high-risk October 30 [id number] 2:55pm Adopted December 11, 2024 3:47 pm [...] 11, 2024 3:47 pm Obesity affecting December 11 025 3:47pm Pelvic floor dysfunction in female [...] 2025 4:01 pm Obesity affecting January 16, 2 025 4:01pm Pelvic floor dysfunction in female [...] Supervision of high-risk January 22, 2025 2:43pm Chief Complaint Admit Date 20WK OB October [...] ob *csection January 22, 2025 2:43 pm 39wk ob *csection January 29, 2025 2:58 pm Reason for Visit Admit Date Adopted [...] 2024 2:34 pm Obesity affecting December 26, 025 2:34pm Pelvic floor dysfunction in female [...] 2025 12:3 6pm Obesity affecting January 08, 025 12:36pm January 08, 2025 12:3 6pm [...] 2025 4:01 pm Obesity affecting January 16, 2 025 4:01pm Pelvic floor dysfunction in female [...] Supervision of high-risk January 22, 2025 2:43pm Adopted January 29, 2025 2:58 pm Allergy to adhesive tape January 29, 2025 2:58pm Anxiety January 29, 2025 2:58 pm Circumvallate placenta January 29, 2025 2 :58pm Gestational diabetes mellitu s (GDM) affecting , antepartum January 29, 2025 2:58pm History of miscarriage, currently pregna nt January 29, 2025 2:58pm History of pre-eclampsia in prior , currently January 29, 2025 2:58pm Hx of gestational diabetes i n prior , currently January 29, 2025 2:58pm Marijuana use January 29, 2025 2:58 pm Mild depression January 29, 2025 2:58 pm Obesity affecting January 29 025 2:58pm Pelvic floor dysfunction in female January 29, 2025 2:58pm January 29, 2025 2:58 pm Previous section January 29 2:58pm Supervision of high-risk January 29, 2025 2:58pm Additional Source Comments INFORMATION SOURCE (unrecogn ized section and content) DATE CREATED AUTHOR 12/24/2017 [facility] DATE CREATED AUTHOR AUTHOR'S ORGANIZ ATION 12/25/2017 [facility] DATE CREATED AUTHOR AUTHOR'S ORGANIZ ATION 12/26/2017 [facility] DATE CREATED AUTHOR AUTHOR'S ORGANIZ ATION 05/12/2023 [facility] DATE CREATED AUTHOR AUTHOR'S ORGANIZ ATION 09/24/2024 [facility] DATE CREATED AUTHOR AUTHOR'S ORGANIZ ATION 11/14/2024 [facility] DATE CREATED AUTHOR AUTHOR'S ORGANIZ ATION 01/26/2025 [facility] Care Teams (unrecognized sec tion and content) Team Status: Active Member Role Status Dates No Primary Care Physician Family Provider Active Bird Ruiz INSPECTING MACHINE ADJUSTER, INSPECTING MACHINE ADJUSTER-C Primary Care Provider Active Team Status: Inactive Member Role Status Dates Bird Ruiz NP, INSPECTING MACHINE ADJUSTER-C Primary Care Provider, Referri ng Provider Active Dr. Evelin Cardona DO Attending Provider Activ e Team Status: Inactive Member Role Status Dates Bird Ruiz NP, INSPECTING MACHINE ADJUSTER-C Primary Care Provider Active Dr. Evelin Cardona DO Attending Provider, Refe rring Provider Active Team Status: Inactive Member Role Status Dates Bird Ruiz INSPECTING MACHINE ADJUSTER, INSPECTING MACHINE ADJUSTER-C Primary Care Provider, Referri ng Provider Active Marietta Ghosh CNM Attending Provider Active Team Status: Inactive Member Role Status Dates Bird Ruiz NP, INSPECTING MACHINE ADJUSTER-C Primary Care Provider, Referri ng Provider Active Dr. Fadumo Zelaya MD Attending Provider Active Team Status: Inactive Member Role Status Dates Bird Ruiz INSPECTING MACHINE ADJUSTER, INSPECTING MACHINE ADJUSTER-C Primary Care Provider, Referri ng Provider Active Dr. Sha Vaughan MD Attending Provider Active Team Status: Inactive Member Role Status Dates Bird Ruiz INSPECTING MACHINE ADJUSTER, INSPECTING MACHINE ADJUSTER-C Primary Care Provider Active Dr. Fadumo Zelaya MD Attending Provider, Referr ing Provider Active Team Status: Inactive Member Role Status Dates Bird Ruiz INSPECTING MACHINE ADJUSTER, INSPECTING MACHINE ADJUSTER-C Primary Care Provider, Referri ng Provider Active Anisa Blackmon INSPECTING MACHINE ADJUSTER, INSPECTING MACHINE ADJUSTER-C Attending Provider Active Team Status: Inactive Member Role Status Dates Bird Ruiz INSPECTING MACHINE ADJUSTER, INSPECTING MACHINE ADJUSTER-C Primary Care Provider Active Anisa Blackmon INSPECTING MACHINE ADJUSTER, INSPECTING MACHINE ADJUSTER-C Attending Provider, Referring Provider Active Team Status: Active Member Role Status Dates Bird Ruiz INSPECTING MACHINE ADJUSTER, INSPECTING MACHINE ADJUSTER-C Primary Care Provider Active Marietta Ghosh CNM Attending Provider, Referring Pro vider Active Team Status: Active Member Role Status Dates Bird Ruiz INSPECTING MACHINE ADJUSTER, INSPECTING MACHINE ADJUSTER-C Primary Care Provider Active Dr. Evelin Cardona DO Attending Provider, Referring Provider, Other Provider Active Team Status: Inactive Member Role Status Dates Bird Ruiz INSPECTING MACHINE ADJUSTER, INSPECTING MACHINE ADJUSTER-C Primary Care Provider Active Marietta Ghosh CNM Attending Provider, Referring Pro vider Active Team Status: Active Member Role Status Dates Bird Ruiz INSPECTING MACHINE ADJUSTER, INSPECTING MACHINE ADJUSTER-C Primary Care Provider Active Dr. Fadumo Zelaya MD Admit Provid er, Attending Provider, Other Provider Active Team Status: Active Member Role Status Dates Bird Ruiz NP, INSPECTING MACHINE ADJUSTER-C Primary Care Provider Active Dr. Fadumo Zelaya MD Admit Provider, Other Prov ider Active Marietta Ghosh CNM Attending Provider Active Team Status: Active Member Role Status Dates Bird Ruiz INSPECTING MACHINE ADJUSTER, INSPECTING MACHINE ADJUSTER-C Primary Care Provider Active Dr. Fadumo Zelaya MD Admit Provider, Other Prov ider Active Anisa Blackmon NP, INSPECTING MACHINE ADJUSTER-C Attending Provider Active Team Status: Inactive Member Role Status Siddhartha Ruiz INSPECTING MACHINE ADJUSTER, INSPECTING MACHINE ADJUSTER-C Primary Care Provider Active Dr. Fadumo Zelaya MD Admit Provider, Attending Provider Active Team Status: Active Member Role Status Siddhartha Ruiz INSPECTING MACHINE ADJUSTER, INSPECTING MACHINE ADJUSTER-C Primary Care Provider Active Dr. Fadumo Zelaya MD Attending Provider, Referr ing Provider Active Team Status: Active Member Role Status Dates Bird Ruiz INSPECTING MACHINE ADJUSTER, INSPECTING MACHINE ADJUSTER-C Primary Care Provider Active Team Status: Inactive Member Role Status Dates Bird Ruiz NP, INSPECTING MACHINE ADJUSTER-C Primary Care Provider Active Start: July 21, 2024 End: July 21, 2024 Marietta Ghosh CNM Attending Provider Active S tart: July 21, 2024 End: July 21, 2024 Marietta Ghosh CNM Referring Provider Active S tart: July 21, 2024 End: July 21, 2024 Team Status: Inactive Member Role Status Dates Bird Ruiz INSPECTING MACHINE ADJUSTER, INSPECTING MACHINE ADJUSTER-C Primary Care Provider Active Start: August 01, 2024 End: August 01, 2024 Bird Ruiz NP, INSPECTING MACHINE ADJUSTER-C Referring Provider Active Start: August 01, 2024 End: August 01, 2024 Dr. Fadumo Zelaya MD Attending Provider Active Start: August 01, 2024 End: August 01, 2024 Team Status: Inactive Member Role Status Dates Bird Ruiz NP, INSPECTING MACHINE ADJUSTER-C Primary Care Provider Active Start: August 27, 2024 End: August 27, 2024 Bird Ruiz INSPECTING MACHINE ADJUSTER, INSPECTING MACHINE ADJUSTER-C Referring Provider Active Start: August 27, 2024 End: August 27, 2024 Dr. Fadumo Zelaya MD Attending Provider Active Start: August 27, 2024 End: August 27, 2024 Team Status: Inactive Member Role Status Dates Bird Ruiz NP, INSPECTING MACHINE ADJUSTER-C Primary Care Provider Active Start: October 02, 2024 End: October 02, 2024 Bird Ruiz NP, INSPECTING MACHINE ADJUSTER-C Referring Provider Active Start: October 02, 2024 End: October 02, 2024 Marietta Ghosh CNM Attending Provider Active S tart: October 02, 2024 End: October 02, 2024 Team Status: Inactive Member Role Status Dates Bird Ruiz NP, INSPECTING MACHINE ADJUSTER-C Primary Care Provider Active Start: October 31, 2024 End: October 31, 2024 Bird Ruiz NP, INSPECTING MACHINE ADJUSTER-C Referring Provider Active Start: October 31, 2024 End: October 31, 2024 Marietta Ghosh CNM Attending Provider Active S tart: October 31, 2024 End: October 31, 2024 Team Status: Inactive Member Role Status Dates Bird Ruiz NP, INSPECTING MACHINE ADJUSTER-C Primary Care Provider Active Start: November 11, 2024 End: November 11, 2024 Bird Ruiz NP, INSPECTING MACHINE ADJUSTER-C Referring Provider Active Start: November 11, 2024 End: November 11, 2024 Marietta Ghosh CNM Attending Provider Active S tart: November 11, 2024 End: November 11, 2024 Team Status: Active Member Role Status Dates Bird Ruiz INSPECTING MACHINE ADJUSTER, INSPECTING MACHINE ADJUSTER-C Primary Care Provider Active Start: November 11, 2024 Anisa Blackmon INSPECTING MACHINE ADJUSTER, INSPECTING MACHINE ADJUSTER-C Attending Provider Active Start: November 11, 2024 Anisa Blackmon INSPECTING MACHINE ADJUSTER, INSPECTING MACHINE ADJUSTER-C Referring Provider Active Start: November 11, 2024 Team Status: Inactive Member Role Status Dates Bird Ruiz INSPECTING MACHINE ADJUSTER, INSPECTING MACHINE ADJUSTER-C Primary Care Provider Active Start: November 11, 2024 End: November 11, 2024 Anisa Blackmon INSPECTING MACHINE ADJUSTER, INSPECTING MACHINE ADJUSTER-C Attending Provider Active Start: November 11, 2024 End: November 11, 2024 Anisa Blackmon INSPECTING MACHINE ADJUSTER, INSPECTING MACHINE ADJUSTER-C Referring Provider Active Start: November 11, 2024 End: November 11, 2024 Team Status: Inactive Member Role Status Dates Bird Ruiz NP, INSPECTING MACHINE ADJUSTER-C Primary Care Provider Active Start: December 11, 2024 End: December 11, 2024 Bird Ruiz INSPECTING MACHINE ADJUSTER, INSPECTING MACHINE ADJUSTER-C Referring Provider Active Start: December 11, 2024 End: December 11, 2024 Anisa Blackmon INSPECTING MACHINE ADJUSTER, INSPECTING MACHINE ADJUSTER-C Attending Provider Active Start: December 11, 2024 End: December 11, 2024 Team Status: Inactive Member Role Status Dates Bird Ruiz NP, INSPECTING MACHINE ADJUSTER-C Primary Care Provider Active Start: December 16, 2024 End: December 16, 2024 Bird Ruiz NP, INSPECTING MACHINE ADJUSTER-C Referring Provider Active Start: December 16, 2024 End: December 16, 2024 Dr. Sha Vaughan MD Attending Provider Active Sta rt: December 16, 2024 End: December 16, 2024 Team Status: Inactive Member Role Status Dates Bird Ruiz NP, INSPECTING MACHINE ADJUSTER-C Primary Care Provider Active Start: December 17, 2024 End: December 17, 2024 Marietta Ghosh CNM Attending Provider Active S tart: December 17, 2024 End: December 17, 2024 Marietta Ghosh CNM Referring Provider Active S tart: December 17, 2024 End: December 17, 2024 Team Status: Active Member Role/Relationship Status Dates Bird Ruiz NP, INSPECTING MACHINE ADJUSTER-C Primary Care Provider Active Team Status: Inactive Member Role/Relationship Status Dates Bird Ruiz NP, INSPECTING MACHINE ADJUSTER-C Primary Care Provider Active Start: October 02, 2024 End: October 02, 2024 Bird Ruiz NP, INSPECTING MACHINE ADJUSTER-C Referring Provider Active Start: October 02, 2024 End: October 02, 2024 Marietta Ghosh CNM Attending Provider Active S tart: October 02, 2024 End: October 02, 2024 Team Status: Inactive Member Role/Relationship Status Dates Bird Ruiz INSPECTING MACHINE ADJUSTER, INSPECTING MACHINE ADJUSTER-C Primary Care Provider Active Start: October 31, 2024 End: October 31, 2024 Bird Ruiz NP, INSPECTING MACHINE ADJUSTER-C Referring Provider Active Start: October 31, 2024 End: October 31, 2024 Marietta Ghosh CNM Attending Provider Active S tart: October 31, 2024 End: October 31, 2024 Team Status: Inactive Member Role/Relationship Status Dates Bird Ruiz NP, INSPECTING MACHINE ADJUSTER-C Primary Care Provider Active Start: November 11, 2024 End: November 11, 2024 Bird Ruiz NP, INSPECTING MACHINE ADJUSTER-C Referring Provider Active Start: November 11, 2024 End: November 11, 2024 Marietta Ghosh CNM Attending Provider Active S tart: November 11, 2024 End: November 11, 2024 Team Status: Inactive Member Role/Relationship Status Dates Bird Ruiz NP, INSPECTING MACHINE ADJUSTER-C Primary Care Provider Active Start: November 11, 2024 End: November 11, 2024 Anisa Blackmon NP, INSPECTING MACHINE ADJUSTER-C Attending Provider Active Start: November 11, 2024 End: November 11, 2024 Anisa Blackmon INSPECTING MACHINE ADJUSTER, INSPECTING MACHINE ADJUSTER-C Referring Provider Active Start: November 11, 2024 End: November 11, 2024 Team Status: Inactive Member Role/Relationship Status Dates Bird Ruiz NP, INSPECTING MACHINE ADJUSTER-C Primary Care Provider Active Start: December 11, 2024 End: December 11, 2024 Bird Ruiz NP, INSPECTING MACHINE ADJUSTER-C Referring Provider Active Start: December 11, 2024 End: December 11, 2024 Anisa Blackmon NP, INSPECTING MACHINE ADJUSTER-C Attending Provider Active Start: December 11, 2024 End: December 11, 2024 Team Status: Inactive Member Role/Relationship Status Dates Bird Ruiz NP, INSPECTING MACHINE ADJUSTER-C Primary Care Provider Active Start: December 16, 2024 End: December 16, 2024 Bird Ruiz NP, INSPECTING MACHINE ADJUSTER-C Referring Provider Active Start: December 16, 2024 End: December 16, 2024 Dr. Sha Vaughan MD Attending Provider Active Sta rt: December 16, 2024 End: December 16, 2024 Team Status: Inactive Member Role/Relationship Status Dates Bird Ruiz INSPECTING MACHINE ADJUSTER, INSPECTING MACHINE ADJUSTER-C Primary Care Provider Active Start: December 17, 2024 End: December 17, 2024 Marietta Ghosh CNM Attending Provider Active S tart: December 17, 2024 End: December 17, 2024 Marietta Ghosh CNM Referring Provider Active S tart: December 17, 2024 End: December 17, 2024 Team Status: Inactive Member Role/Relationship Status Dates Bird Ruiz INSPECTING MACHINE ADJUSTER, INSPECTING MACHINE ADJUSTER-C Primary Care Provider Active Start: December 26, 2024 End: December 26, 2024 Bird Ruiz INSPECTING MACHINE ADJUSTER, INSPECTING MACHINE ADJUSTER-C Referring Provider Active Start: December 26, 2024 End: December 26, 2024 Dr. Fadumo Zelaya MD Attending Provider Active Start: December 26, 2024 End: December 26, 2024 Team Status: Active Member Role/Relationship Status Dates Bird Ruiz INSPECTING MACHINE ADJUSTER, INSPECTING MACHINE ADJUSTER-C Primary Care Provider Active Start: December 26, 2024 Dr. Fadumo Zelaya MD Attending Provider Active Start: December 26, 2024 Dr. Fadumo Zelaya MD Referring Provider Active Start: December 26, 2024 Team Status: Inactive Member Role/Relationship Status Dates Bird Ruiz INSPECTING MACHINE ADJUSTER, INSPECTING MACHINE ADJUSTER-C Primary Care Provider Active Start: December 26, 2024 End: December 26, 2024 Dr. Fadumo Zelaya MD Attending Provider Active Start: December 26, 2024 End: December 26, 2024 Dr. Fadumo Zelaya MD Referring Provider Active Start: December 26, 2024 End: December 26, 2024 Team Status: Active Member Role/Relationship Status Dates Bird Ruiz NP, INSPECTING MACHINE ADJUSTER-C Primary Care Provider Active Start: January 01, 2025 Marietta Ghosh CNM Attending Provider Active S tart: January 01, 2025 Marietta Ghosh CNM Referring Provider Active S tart: January 01, 2025 Dr. Fadumo Zelaya MD Other Provider Active Start: January 01, 2025 Team Status: Active Member Role/Relationship Status Dates Bird Ruiz NP, INSPECTING MACHINE ADJUSTER-C Primary Care Provider Active Start: January 08, 2025 Dr. Fadumo Zelaya MD Attending Provider Active Start: January 08, 2025 Dr. Fadumo Zelaya MD Referring Provider Active Start: January 08, 2025 Team Status: Inactive Member Role/Relationship Status Dates Bird Ruiz INSPECTING MACHINE ADJUSTER, INSPECTING MACHINE ADJUSTER-C Primary Care Provider Active Start: January 08, 2025 End: January 08, 2025 Bird Ruiz INSPECTING MACHINE ADJUSTER, INSPECTING MACHINE ADJUSTER-C Referring Provider Active Start: January 08, 2025 End: January 08, 2025 Anisa Blackmon INSPECTING MACHINE ADJUSTER, INSPECTING MACHINE ADJUSTER-C Attending Provider Active Start: January 08, 2025 End: January 08, 2025 Team Status: Inactive Member Role/Relationship Status Dates Bird Ruiz INSPECTING MACHINE ADJUSTER, INSPECTING MACHINE ADJUSTER-C Primary Care Provider Active Start: January 08, 2025 End: January 08, 2025 Dr. Fadumo Zelaya MD Referring Provider Active Start: January 08, 2025 End: January 08, 2025 Dr. Fadumo Zelaya MD Other Provider Active Start: January 08, 2025 End: January 08, 2025 Dr. Evelin Cardona DO Attending Provider Activ e Start: January 08, 2025 End: January 08, 2025 Team Status: Inactive Member Role/Relationship Status Dates Bidr Ruiz NP, INSPECTING MACHINE ADJUSTER-C Primary Care Provider Active Start: January 01, [...] Member Role/Relationship Status Dates Bird Ruiz NP, INSPECTING MACHINE ADJUSTER-C Primary Care Provider Active Start: January 08, 2025 Dr. Fadumo Zelaya MD Referring Provider Active Start: January 08, 2025 Dr. Fadumo Zelaya MD Other Provider Active Start: January 08, 2025 Dr. Evelin Cardona DO Attending Provider Activ e Start: January 08, 2025 Dr. Evelin Cardona DO Other Provider Active Start: January 08, 2025 Team Status: Inactive Member Role/Relationship Status Dates Bird Ruiz INSPECTING MACHINE ADJUSTER, INSPECTING MACHINE ADJUSTER-C Primary Care Provider Active Start: January 13, 2025 End: January 13, 2025 Dr. Evelin Cardona DO Attending Provider Activ e Start: January 13, 2025 End: January 13, 2025 Dr. Evelin Cardona DO Referring Provider Activ e Start: January 13, 2025 End: January 13, 2025 Team Status: Active Member Role/Relationship Status Dates Bird Ruiz INSPECTING MACHINE ADJUSTER, INSPECTING MACHINE ADJUSTER-C Primary Care Provider Active Start: January 13, 2025 Dr. Evelin Cardona , Attending Provider Activ e Start: January 13, 2025 Dr. Evelin Cardona DO Referring Provider Activ e Start: January 13, 2025 Dr. Evelin Cardona , DO Other Provider Active Start: January 13, 2025 Team Status: Inactive Member Role/Relationship Status Dates Bird Ruiz INSPECTING MACHINE ADJUSTER, INSPECTING MACHINE ADJUSTER-C Primary Care Provider Active Start: January 16, 2025 End: January 16, 2025 Bird Ruiz INSPECTING MACHINE ADJUSTER, INSPECTING MACHINE ADJUSTER-C Referring Provider Active Start: January 16, 2025 End: January 16, 2025 Dr. Fadumo Zelaya MD Attending Provider Active Start: January 16, 2025 End: January 16, 2025 Team Status: Active Member Role/Relationship Status Dates Bird Ruiz INSPECTING MACHINE ADJUSTER, INSPECTING MACHINE ADJUSTER-C Primary Care Provider Active Start: January 16, 2025 Dr. Fadumo Zelaya MD Attending Provider Active Start: January 16, 2025 Dr. Fadumo Zelaya MD Referring Provider Active Start: January 16, 2025 Team Status: Active Member Role/Relationship Status Dates Bird Ruiz NP, INSPECTING MACHINE ADJUSTER-C Primary Care Provider Active Start: January 22, 2025 Dr. Fadumo Zelaya MD Attending Provider Active Start: January 22, 2025 Dr. Fadumo Zelaya MD Referring Provider Active Start: January 22, 2025 Team Status: Inactive Member Role/Relationship Status Dates Bird Ruiz INSPECTING MACHINE ADJUSTER, INSPECTING MACHINE ADJUSTER-C Primary Care Provider Active Start: January 22, 2025 End: January 22, 2025 Bird Ruiz INSPECTING MACHINE ADJUSTER, INSPECTING MACHINE ADJUSTER-C Referring Provider Active Start: January 22, 2025 End: January 22, 2025 Dr. Fadumo Zelaya MD Attending Provider Active Start: January 22, 2025 End: January 22, 2025 Team Status: Inactive Member Role/Relationship Status Dates Bird Ruiz NP, INSPECTING MACHINE ADJUSTER-C Primary Care Provider Active Start: January 16, 2025 End: January 16, 2025 Dr. Fadumo Zelaya MD Attending Provider Active Start: January 16, 2025 End: January 16, 2025 Dr. Fadumo Zelaya MD Referring Provider Active Start: January 16, 2025 End: January 16, 2025 Team Status: Inactive Member Role/Relationship Status Dates Bird Ruiz NP, INSPECTING MACHINE ADJUSTER-C Primary Care Provider Active Start: January 22, 2025 End: January 22, 2025 Dr. Fadumo Zelaya MD Attending Provider Active Start: January 22, 2025 End: January 22, 2025 Dr. Fadumo Zelaya MD Referring Provider Active Start: January 22, 2025 End: January 22, 2025 Team Status: Inactive Member Role/Relationship Status Dates Bird Ruiz NP, INSPECTING MACHINE ADJUSTER-C Primary Care Provider Active Start: January 29, 2025 End: January 29, 2025 Bird Ruiz NP, INSPECTING MACHINE ADJUSTER-C Referring Provider Active Start: January 29, 2025 End: January 29, 2025 Dr. Fadumo Zelaya MD Attending Provider Active Start: January 29, 2025 End: January 29, 2025 Goals (unrecognized section and content) Goals [...] BE BASED ON THE PRIMARY CLINICAL RECORDS. [facility] [employer] [facility]. provides no warranty or guarantee of the accuracy or completeness of information in this document.
--- OUTSIDE RECORDS SUMMARY | 2025-01-30 05:23 | XMS RPT_ITS | CCD ---
Author Organization [facility] Care Team Providers Care Floriculture Teacher Name Role Phone Mahnaz, Ali Alban Unavailable Unavailable *SELF, REFERRED Unavailable Unavailable Sukumar Joya Unavailable Unavailable CAROLYNE CURRY Unavailable Unavailable Michelle Roberts Unavailable Unavailable Maribel Mccabe Unavailable Unavailable Joseph SWINE GENETICS RESEARCHER, SWINE GENETICS RESEARCHER-C Bird Primary Care Provider [phone] Joseph SWINE GENETICS RESEARCHER, SWINE GENETICS RESEARCHER-C Bird Referring Provider Dr. Evelin Cardona Attending Provider Dr. Sha Vaughan Attending Provider RACHAEL Ghosh Attending Provider [phone] Dr. Fadumo Zelaya Attending Provider Joseph ZURITA, SWINE GENETICS RESEARCHER-C Bird Primary Care Provider Joseph ZURITA, SWINE GENETICS RESEARCHER-C Bird Referring Provider RACHAEL Ghosh Attending Provider [phone] Dr. Fadumo Zelaya Attending Provider Dr. Sha Vaughan Attending Provider Neymar SWINE GENETICS RESEARCHER, SWINE GENETICS RESEARCHER-C Anisa Attending Provider Joseph ZURITA, SWINE GENETICS RESEARCHER-C Bird Primary Care Provider [phone] Joseph ZURITA, SWINE GENETICS RESEARCHER-C Bird Referring Provider RACHAEL Ghosh Attending Provider Joseph SWINE GENETICS RESEARCHER, SWINE GENETICS RESEARCHER-C Bird Primary Care Provider Joseph SWINE GENETICS RESEARCHER, SWINE GENETICS RESEARCHER-C Bird Referring Provider Dr. Fadumo Zelaya Attending Provider Dr. Evelin Cardona Attending Provider [phone] Dr. Evelin Cardona Referring Provider [phone] Dr. Evelin Cardona Other Provider Dr. Fadumo Zelaya Admit Provider [phone] Dr. Fadumo Zelaya Other Provider [phone] JOSEPH, BIRD CERVANTES Primary Care Unavailable JOSEPH, BIRD PRINCIPAL JAVA SOFTWARE ENGINEER Consulting Unavailable JOSEPH, BIRD PRINCIPAL JAVA SOFTWARE ENGINEER Attending Unavailable JOSEPH, BIRD PRINCIPAL JAVA SOFTWARE ENGINEER Admitting Unavailable PROVIDER, UNKNOWN Consulting Unavailable PROVIDER, UNKNOWN Consulting Unavailable JOSEPH, BIRD PRINCIPAL JAVA SOFTWARE ENGINEER Primary Care Unavailable JOSEPH, BIRD PRINCIPAL JAVA SOFTWARE ENGINEER Consulting Unavailable JOSEPH, BIRD PRINCIPAL JAVA SOFTWARE ENGINEER Attending Unavailable JOSEPH, BIRD PRINCIPAL JAVA SOFTWARE ENGINEER Admitting Unavailable PROVIDER, UNKNOWN Consulting Unavailable PROVIDER, UNKNOWN Consulting Unavailable JOSEPH, BIRD PRINCIPAL JAVA SOFTWARE ENGINEER Primary Care Unavailable JOSEPH, BIRD PRINCIPAL JAVA SOFTWARE ENGINEER Consulting Unavailable JOSEPH, BIRD PRINCIPAL JAVA SOFTWARE ENGINEER Attending Unavailable JOSEPH, BIRD PRINCIPAL JAVA SOFTWARE ENGINEER Admitting Unavailable PROVIDER, UNKNOWN Consulting Unavailable PROVIDER, UNKNOWN Consulting Unavailable Joseph SWINE GENETICS RESEARCHER-C, Bird Primary Care Provider Marietta Ghosh CNM Attending Provider [phone] Marietta Ghosh CNM Referring Provider [phone] Joseph SWINE GENETICS RESEARCHER-C, Bird Referring Provider Dr. Fadumo Zelaya MD Attending Provider [phone] Neymar SWINE GENETICS RESEARCHER-CAnisa Attending Provider [phone] Neymar SWINE GENETICS RESEARCHER-CAnisa Referring Provider [phone] BIRD RUIZ Primary Care Unavailable FADUMO ZELAYA Referring Unavailabl e FADUMO EZLAYA Attending Unavailabl e FADUMO ZELAYA Attending Unavailabl e BIRD RUIZ Primary Care Unavailable FADUMO ZELAYA Referring Unavailabl e Joseph SWINE GENETICS RESEARCHER-C, Bird Primary Care Provider Joseph ZURITA-CBird Referring Provider Dr. Fadumo Zelaya MD Attending Provider [phone] Marietta Ghosh CNM Attending Provider [phone] Dr. Sha Vaughan MD Attending Provider [phone] Augie CNM, Marietta Referring Provider [phone] Joseph SWINE GENETICS RESEARCHER-C, Bird Primary Care Provider Joseph SWINE GENETICS RESEARCHER-C, Bird Referring Provider Alex LUNA, Dr. Thorne Attending Provider Alex LUNA, Dr. Thorne Referring Provider Alex LUNA, Dr. Thorne Other Provider [phone] Pooja Porter DO, Dr. Waters Attending Provider Pooja Porter DO, Dr. Waters Other Provider [phone] Pooja Porter DO, Dr. Waters Referring Provider [...] Translations: [adhesive tape] Allergy to substance 11-11-2024 [facility] Comment on above: mepilex dressing Medications Current Medications Medication Drug Class(es) Dates Sig (Normalized) Sig (Original) Blood-Glucose Meter (11 sources) Start: 02-08-2023 Blood-Glucose Meter Active 0 .[facility] 1 February 07, 2023 11:00pm As directed- [...] 2 February 13, 2023 12:00am As directed Blood-Glucose,Hydro Technician,Cont (Freestyle Dot 3 [place]) misc (14 sources) Start: 12-03-2024 Blood-Glucose,Hydro Technician,Cont (Freestyle Dot 3 [place]) misc Active 0 .Route 1 0 December 03, 2024 12:00am As directed Start: 12-03-2024 Blood-Glucose, Hydro Technician,Cont (Freestyle Dot 3 [place]) misc Active 0 .Route 1 December 03, [...] tylenol and 50 mg of caffeine Mv-Mins 08-Xqzr-Sttrt No.1-Dha (Pnv-[place]) 28-1-300 mg capsule (20 sources) Start: 01-11-2023 Mv-Mins 83-Sovf-[place] No.1-Dha (Pnv-[place]) 28-1-300 mg capsule Active 300 NMA PO DAILY January 11, 2023 12:00am Start: 01-11-2023 Mv-Mins 71-Iro n-Folic No.1-Dha (Pnv-[place]) 28-1-300 mg capsule Active 300 NMA PO DAILY January 11, 2023 12:00am Start: 01-11-2023 take 1 capsule by mo uth once daily Mv-Mins 72-Lqkg-Nrahk No.1-Dha (Pnv-[place]) 28-1-300 mg capsule Active 300 CAP PO DAILY January 10, 2023 11:00pm Start: 01-11-2023 take 1 capsule by mouth once M v-Mins 96-Cqhn-Mfrkp No.1-Dha (Pnv-[place]) 28-1-300 mg capsule Active CAP PO January 10, 2023 11:00pm Start: 01-11-2023 take 1 capsule by mouth once M v-Mins 56-Xqhi-Useuk No.1-Dha (Pnv-[place]) 28-1-300 mg capsule Active CAP PO January [...] Glucose Scanning Reade r (Freestyle Dot 2 [place]) misc (15 sources) Start: 11-12-2024 End: 12-16-2024 Flash Glucose Scanning Reade r (Freestyle Dot 2 [place]) misc Discontinued 0 .Route 1 0 November 12, 2024 12:00am December 16, 2024 10:41am As directed Start: 11-12-2024 End: 12-16-2024 Flash Glucose Scanning Reade r (Freestyle Dot 2 [place]) misc Discontinued 0 .Route 1 November 12, 2024 12:00am December 16, 2024 10:41am As directed Start: 11-12-2024 Flash Glucose Scanning [place] (Freestyle Dot 2 [place]) misc Active 0 .Route 1 November 12, [...] 07, 2020 August 16, 2020 3:35pm Pediatric Bqsnyiqw-Eutz-Gtc (Flintstones Complete (Iron)) tablet,chewable (20 sources) Start: 03-24-2020 End: 04-26-2020 Pediatric Qmuhfxoe-Ktzx-Tdg (Flintstones Complete (Iron)) tablet,chewable Discontinued 2 {tbl} PO DAILY 90 3 March 24, 2020 12:00am April 26, 2020 1:40pm administer with a meal Start: 03-24-2020 End: 04-26-2020 Pediatric Hntqakml-Pgio-Unb (Flintstones Complete (Iron)) tablet,chewable Discontinued 2 {tbl} PO DAILY March 24, 2020 12:00am April 26, 2020 1:40pm administer with a meal Start: 03-24-2020 End: 04-26-2020 take 2 tablets by mouth once daily Pediatric Vrnqdxmz-Atox-Cth (Flintstones Complete (Iron)) tablet,chewable Discontinued 2 TABLET PO DAILY March 23, 2020 11:00pm April 26, 2020 12:40pm administer with a meal Start: 03-24-2020 End: 04-26-2020 take 2 tablets by mouth once daily Pediatric Laieiafj-Zvod-Cph (Flintstones Complete (Iron)) tablet,chewable Discontinued 2 TABLET PO DAILY March 24, 2020 12:00am April 26, 2020 1:40pm administer with a meal Pnv #07-Daff-Mkqni Acid-Omeg a3 30 mg iron-10 mg iron-1 mg capsule (20 sources) Start: 04-26-2020 End: 08-16-2020 Pnv #54-Hrpg-Mnpyi Acid-Omeg a3 30 mg iron-10 mg iron-1 mg capsule Discontinued 1 NMA PO DAILY April 26, 2020 12:00am August 16, 2020 3:35pm vitamin Start: 04-26-2020 End: 08-16-2020 Pnv #38-Pwpk-Rnmov Acid-Omeg a3 30 mg iron-10 mg iron-1 mg capsule Discontinued 1 NMA PO DAILY April 26, 2020 12:00am August 16, 2020 3:35pm Start: 01-19-2020 End: 01-30-2020 Pnv #95-Iiyk-Tpjbu Acid-Omeg a3 30 mg iron-10 mg iron-1 mg capsule Discontinued 1 NMA PO daily 30 06January 19, 2020 1:47pm January 30, 2020 1:50pm Start: 01-19-2020 End: 01-30-2020 Pnv #11-Jser-Febxp Acid-Omeg a3 30 mg iron-10 mg iron-1 mg capsule Discontinued 1 NMA PO daily January 19, 2020 1:47pm January 30, 2020 1:50pm Start: 01-01-2020 End: 01-19-2020 Pnv #35-Hmvy-Rngjl Acid-Omeg a3 30 mg iron-10 mg iron-1 mg capsule Discontinued NMA PO January 01, 2020 12:00am January 19, 2020 1:48pm FSP65-UB 400 mcg-om3 35 mg-dha 25 mg-epa 5 mg-fish oil chewable tablet (12 sources) Start: 01-30-2020 End: 03-24-2020 take 2 tablets by mouth once daily DJP40-QU 400 mcg-om3 35 mg-dha 25 mg-epa 5 mg-fish oil chewable tablet Discontinued 2 TABLET PO DAILY 60 January 29, 2020 11:00pm March 24, 2020 12:38pm Start: 01-30-2020 End: 03-24-2020 take 2 tablets by mouth once daily WOU35-HY 400 mcg-om3 35 mg-dha 25 mg-epa 5 mg-fish oil chewable tablet Discontinued 2 TABLET PO DAILY 60 January 30, 2020 12:00am March 24, 2020 1:38pm Rkz59-Qy-Jq6-Vjl-Hav-Reub Oi l ( Gummy) 400 mcg-35 mg -25 mg-5 mg tablet,chewable (16 sources) Start: 01-30-2020 End: 03-24-2020 Gxk21-Jl-Gr9-Qjo-Yyx-Makg Oi l ( Gummy) 400 mcg-35 mg -25 mg-5 mg tablet,chewable Discontinued 2 {tbl} PO DAILY 60 12 January 30, 2020 12:00am March 24, 2020 1:38pm Start: 01-30-2020 End: 03-24-2020 Bgo58-Tp-Kj7-Pwv-Atk-Zjtf Oi l ( Gummy) 400 mcg-35 mg [...] Vaughan. nutrition consult on NPH insulin at [facility]. discussed if polyhydramnios may recommend 38 week delivery on NPH insulin at [facility]. discussed if polyhydramnios may recommend 38 [...] Zelaya on 01-22-2025 Glucose Ql (U) Negative [facility] - UrinalysisOrder ed By: Fadumo Zelaya on 01-22-2025 Protein Ql (U) Negative [facility] OB Biophysical Prof W/O NSTo n 01-22-2025 OB Biophysical Prof W/O NST [facility] Imaging Services [address], [place] [id number] OB Biophysical Prof W/O NST MR#: [id number] Acct: [id number] Name: AZAEL SULTANA Rep #: [id number] : 2000 F 24 From: Eduardo noe MD PCP: Bird Ruiz NP-C Status: REG CLI Study: OB Biophysical Prof W/O NST Date of Exam: 12/31 10/24 Exam# [id number] Ordering Dr: Fadumo Zelaya PROCEDURE: OB BIOPHYSICAL [...] with a score of 8/8. Reading Location: [id number] CC: MING Ruiz; Dr. Fadumo Zelaya MD Legal Specialist: Signed Normal [facility] Locomotive Crane Operator Helper Office Visit Reporton 01-22-2025 Locomotive Crane Operator Helper Office Visit Report [facility] [address], [address] [place] [address] OFFICE VISIT Date of Service: 01/22/25 MR#: [id number] Acct: [id number] Name: AZAEL SULTANA Rep #: [id number] : 2000 Provider: Dr. Fadumo smith MD Age/Sex: 24/F Location[place] [facility] [place] Status: Signed Intake Vital Signs 12/11/24 15:58 01/16/25 16:07 01/22/25 14:48 Height 5 ft 3 in 5 ft 3 in 5 ft 3 in Weight: 273 lb 6 oz BMI 48.4 BP 125/84 H Intake Visit Reasons: 38wk ob *csection Belt Notcher Required: No Is patient in pain?: No Feel stressed/tense/nervous/ anxious/difficulty sleeping: not at all Allergies adhesive tape Allergy (Mild, Verified 01/22/25 14:54) Rash Medications ???Medication ???Instructions ???Recorded ???Confirmed ???Type multivit-min no.71-iron fum 28 300 cap PO DAILY 3 01/22/25 History mg-folate no.1 1 mg-dha 300 mg capsule (PNV-[place]) ondansetron 4 mg disintegrating 4 mg PO Q4H PRN nausea and 4 01/22/25 Rx tablet vomiting #60 tabs metoclopramide HCl 10 mg tablet 10 mg PO TID nausea #90 tabs 08/2701/22/25 Rx (Reglan) 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 sensor (FreeStyle #1 ea 12/03/24 01/22/25 Rx Dot 3 Sensor device) 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,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, cont #1 ea 12/03/24 01/22/25 Rx (FreeStyle Dot 3 [place]) insulin degludec 100 unit/mL (3 46 unit [...] 2 current occupational status: employed current occupation: [employer] current occupational exposures/hazards: No pets and [...] physical activity do you participate in: none matt/restoration: None seatbelt use: always do you feel safe at home: Yes additional social history: Patient works at [employer]- Works at [employer] History 4 Elective abortions Hx Para 2 Spontaneous abortions 1 Hx # Term Pregnancies 2 Ectopic pregnancies Hx # Pregnancies Multiple births # of living children 2 Past Pregnancies Del. Date Name GA/Weeks Outcome Route Bth Weight Infant Gen Labor Lgth Anesthesia Del Locatn Provider FOB 07/20/20 Andre 37 live - full term vacuum 8# 11oz Male [facility] Myke ellison 08/20/23 Radames Mikhail 38 live [...] list deta (more content not included)... Normal [facility] Rule out Beta Strep (Grp. B) on 01-18-2025 KEL Group B Beta Streptococcus is not isolated. Normal [facility] Comment on above: Performed By: #### M 100.3400 #### [facility] [address] [place], [place], [address] Laboratory - Chemistry and C hemistry - challengeOrdered By: Fadumo Zelaya on 01-16-2025 Glucose Ql (U) Negative [facility] - UrinalysisOrder ed By: Fadumo Zelaya on 01-16-2025 Protein Ql (U) Negative [facility] OB Limited With Biometricson 01-16-2025 OB Limited With Biometrics [facility] Imaging Services [address], [place] [address] OB Limited With Biometrics MR#: [id number] Acct: [id number] Name: AZAEL SULTANA Rep #: [id number] : 2000 F 24 From: Sumit Puckett MD PCP: MING Sagastume Status: REG CLI Study: OB Limited With Biometrics Date of Exam: 01/16 Exam# [id number] Ordering Dr: Marietta Ghosh CNM PROCEDURE: OB [...] Location: [facility] CC: RACHAEL Ghosh; MING Ruiz Legal Specialist: Signed Normal [facility] Locomotive Crane Operator Helper Office Visit Reporton 01-16-2025 Locomotive Crane Operator Helper Office Visit Report [facility] [address], [address] [place] [address] OFFICE VISIT Date of Service: 01/16/25 MR#: [id number] Acct: [id number] Name: AZAEL SULTANA Rep #: [id number] : 2000 Provider: Dr. Fadumo smith MD Age/Sex: 24/F [place] [facility] [place]: Signed Intake Vital Signs 12/11/24 15:58 01/13/25 19:19 01/16/25 16:03 01/16/25 16:07 Height 5 ft 3 in 5 ft 3 in 5 ft 3 in 5 ft 3 in Weight: 272 lb 2 oz BMI 48.2 BP 121/83 H Intake Visit Reasons: 37wk ob *csection Chief Complaint: 37 Week OB Belt Notcher Required: No Is patient in pain?: No Allergies adhesive tape Allergy (Mild, Verified 01/16/25 16:02) Rash Medications ???Medication ???Instructions ???Recorded ???Confirmed ???Type multivit-min no.71-iron fum 28 300 cap PO DAILY 3 01/16/25 History mg-folate no.1 1 mg-dha 300 mg capsule (PNV-[place]) ondansetron 4 mg disintegrating 4 mg PO Q4H PRN nausea and 4 01/16/25 Rx tablet vomiting #60 tabs metoclopramide HCl 10 mg tablet 10 mg PO TID nausea #90 tabs 08/2701/16/25 Rx (Reglan) 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 sensor (FreeStyle #1 ea 12/03/24 01/16/25 Rx Dot 3 Sensor device) 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,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, cont #1 ea 12/03/24 01/16/25 Rx (FreeStyle Dot 3 [place]) insulin degludec 100 unit/mL (3 46 unit [...] 2 current occupational status: employed current occupation: [employer] current occupational exposures/hazards: No pets and animals: [...] physical activity do you participate in: none matt/restoration: None seatbelt use: always do you feel safe at home: Yes additional social history: Patient works at [employer]- Works at [employer] History 4 Elective abortions Hx Para 2 Spontaneous abortions 1 Hx # Term Pregnancies 2 Ectopic pregnancies Hx # Pregnancies Multiple births # of living children 2 Past Pregnancies Del. Date Name GA/Weeks Outcome Route Bth Weight Infant Gen Labor Lgth Anesthesia Del Locatn Provider FOB 07/20/20 Andre 37 live - full term vacuum 8# 11oz Male [facility] Myke ellison 08/20/23 Radames Elizondo 38 live - full term 7lbs 8oz Male [facility] SM Delivery Date: 07/20/20 Last Updated [...] list detai (more content not included)... Normal [facility] Screening beta-hemolytic Str eptococcus cultureOrdered By: Fadumo Zelaya on 01-16-2025 Beta-hemolytic Streptococcus culture Group B Beta Streptococcus is not isolated. [facility] (ROM) Rupture Of Membraneson 01-13-2025 ROM Negative Normal Negative [facility] Comment on above: Result Comment: Amni otic fluid not present indicates No Rupture of Membranes at time of specimen collection. Performed By: #### L 205.1000 #### [facility] [address] [place], [address] OB Triage Physician Noteon 0 01-13-2025 OB Triage Physician Note [facility] Medical Records Department [address] [place] [address] OB Triage Physician Note 01/13/25 1912 MR#: [id number] Acct: [id number] Name: AZAEL SULTANA Rep #: [id number] : 2000 24 From: Evelin Cardona DO PCP: MING Sagastume Status:DEP CLI Y Location: [facility] HPI - General HPI Narrative AZAEL SULTANA, is a 24 y/o @ 36 weeks 4 days who presents to [facility] with possible rupture of membranes. Maternal [...] mg-folate no.1 1 mg-dha 300 mg capsule (PNV-[place]) ondansetron 4 mg disintegrating 4 mg PO Q4H PRN nausea and 4 Unknown Rx tablet vomiting #60 tabs metoclopramide HCl 10 mg tablet 10 mg PO TID nausea #90 tabs 08/27 Unknown Rx (Reglan) 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 sensor (FreeStyle #1 ea 12/03/24 Unknown Rx Dot 3 Sensor device) 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,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, cont #1 ea 12/03/24 Unknown Rx (FreeStyle Dot 3 [place]) insulin degludec 100 unit/mL (3 42 unit [...] 2 current occupational status: employed current occupation: [employer] current occupational exposures/hazards: No pets and [...] physical activity do you participate in: none matt/restoration: None seatbelt use: always do you feel safe at home: Yes additional social history: Patient works at [employer]- Works at [employer] History 4 Elective abortions Hx Para 2 Spontaneous abortions 1 Hx # Term Pregnancies 2 Ectopic pregnancies Hx # Pregnancies Multiple births # of living children 2 Past Pregnancies Del. Date Name GA/Weeks Outcome Route Bth Weight Infant Gen Labor Lgth Anesthesia Del Locatn Provider FOB 07/20/20 Andre 37 live - full term vacuum 8# 11oz Male [facility] Myke ellison 08/20/23 Radames Elizondo 38 [...] -???-???-???-???-???-?? ?-???- (more content not included)... Normal [facility] AST(SGOT)on 01-08-2025 AST [Catalytic activity/Vol] 12 U/L Normal <=31 [facility] Comment on above: Performed By: #### M 100.3400 #### [facility] [address] [place], [address] Alanine Aminotransferas (SGP T)on 01-08-2025 ALT [Catalytic activity/Vol] U/L Normal <=34 [facility] Comment on above: Performed By: #### M 100.3400 #### [facility] [address] [place], [address] CBC-Complete Blood Cnt No Di ffon 01-08-2025 Erythrocyte distribution width (RBC) [Ratio] 14.7 % High 11.6-14.6 [facility] Comment on above: Performed By: #### M 100.3400 #### [facility] [address] [place], [address] Hematocrit (Bld) [Volume fraction] 34.3 % Low 37-47 [facility] Comment on above: Performed By: #### M 100.3400 #### [facility] [address] [place], [address] Hemoglobin (Bld) [Mass/Vol] 11.4 g/dL Low 12.0-15.0 [facility] Comment on above: Performed By: #### M 100.3400 #### [facility] [address] [place], [address] MCH (RBC) [Entitic mass] 29.4 pg Normal 27.0-32.0 [facility] Comment on above: Performed By: #### M 100.3400 #### [facility] [address] [place], [address] MCHC (RBC) [Mass/Vol] 33.2 g/dL Normal 32-36 [facility] Comment on above: Performed By: #### M 100.3400 #### [facility] [address] [place], [address] MCV (RBC) [Entitic vol] 88.4 fL Normal 81-99 [facility] Comment on above: Performed By: #### M 100.3400 #### [facility] [address] [place], [address] Platelet mean volume (Bld) [Entitic vol] 10.8 fL Normal 6.2-12.0 [facility] Comment on above: Performed By: #### M 100.3400 #### [facility] [address] [place], [address] Platelets (Bld) [#/Vol] 301 10*3/uL Normal 150-450 [facility] Comment on above: Performed By: #### M 100.3400 #### [facility] [address] [place], [address] RBC (Bld) [#/Vol] 3.88 10*6/uL Low 4.2-5.4 [facility] Comment on above: Performed By: #### M 100.3400 #### [facility] [address] [place], [address] RDW SD 47.6 fl High 35.1-43.9 [facility] Comment on above: Performed By: #### M 100.3400 #### [facility] [address] [place], [address] WBC (Bld) [#/Vol] 11.7 10*3/uL High 4.4-11.0 [facility] Comment on above: Performed By: #### M 100.3400 #### [facility] [address] [place], [place], [id number] (479) Erythrocyte distribution wid th ratioOrdered By: Evelin Porter on 01-08-2025 Erythrocyte distribution width (RBC) [Ratio] 14.7 % High 11.6-14.6 [facility] Erythrocyte distribution wid th standard deviationOrdered By: Evelin Porter on 01-08-2025 Erythrocyte distribution width (RBC) [Ratio] 47.6 fl High 35.1-43.9 [facility] Glomerular filtration rate ( GFR) estimation/1.73 sq m using serum, plasma, or whole bOrdered By: Evelin Porter on 01-08-2025 GFR/1.73 sq M.predicted among non-blacks MDRD (S/P/Bld) [Vol rate/Area] 133 mL/min/{1.73_m2} >60 [facility] Comment on above: mL/min/1.73m2 CKD-EP I Creatinine Equation (2020) Hematocrit Auto (Bld) [Volum e fraction]Ordered By: Evelin Porter on 01-08-2025 Hematocrit (Bld) [Volume fraction] 34.3 % Low 37-47 [facility] Hemoglobin measurementOrdere d By: Evelin Porter on 01-08-2025 Hemoglobin (Bld) [Mass/Vol] 11.4 g/dL Low 12.0-15.0 [facility] - Chemistry and C hemistry - challengeOrdered By: Evelin Porter on 01-08-2025 AST [Catalytic activity/Vol] 12 U/L <32 [facility] - Chemistry and C hemistry - challengeOrdered By: Anisa Blackmon on 01-08-2025 Glucose Ql (U) Negative [facility] - UrinalysisOrder ed By: Anisa Blackmon on 01-08-2025 Protein Ql (U) Trace [facility] MCV (mean corpuscular volume ) determinationOrdered By: Evelin Porter on 01-08-2025 MCV (RBC) [Entitic vol] 88.4 fL 81-99 [facility] Mean corpuscular hemoglobin (MCH) determinationOrdered By: Evelin Porter on 01-08-2025 MCH (RBC) [Entitic mass] 29.4 pg 27.0-32.0 [facility] Mean corpuscular hemoglobin concentration (MCHC) determinationOrdered By: Evelin Porter on 01-08-2025 MCHC (RBC) [Mass/Vol] 33.2 g/dL 32-36 [facility] Mean platelet volume determi nationOrdered By: Evelin Porter on 01-08-2025 Platelet mean volume (Bld) [Entitic vol] 10.8 fL 6.2-12.0 [facility] OB Biophysical Prof W/O NSTo n 01-08-2025 OB Biophysical Prof W/O NST [facility] Imaging Services [address] [place], [place] [address] OB Biophysical Prof W/O NST MR#: [id number] Acct: [id number] Name: AZAEL SULTANA Rep #: [id number] : 2000 F 24 From: Eduardo noe MD PCP: MING Sagastume Status: REG CLI Study: OB Biophysical Prof W/O NST Date of Exam: 12/30 Exam# [id number] Ordering Dr: Fadumo Zelaya PROCEDURE: OB BIOPHYSICAL [...] biophysical profile score of 8/8 Reading Location: [place] [address] CC: SWINE GENETICS RESEARCHERMontezC Bird Ruiz; Dr. Fadumo Zelaya MD Legal Specialist: Signed Normal [facility] OB Triage Physician Noteon 0 01-08-2025 OB Triage Physician Note [facility] Medical Records Department [address] [place] [address] OB Triage Physician Note 01/08/251914 MR#: [id number] Acct: [id number] Name: AZAEL SULTANA Rep #: [id number] : 2000 24 From: Evelin Cardona DO [...] mg-folate no.1 1 mg-dha 300 mg capsule (PNV-[place]) ondansetron 4 mg disintegrating 4 mg PO Q4H PRN nausea and 4 Unknown Rx tablet vomiting #60 tabs metoclopramide HCl 10 mg tablet 10 mg PO TID nausea #90 tabs 08/27 Unknown Rx (Reglan) 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 sensor (FreeStyle #1 ea 12/03/24 Unknown Rx Dot 3 Sensor device) 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,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, cont #1 ea 12/03/24 Unknown Rx (FreeStyle Dot 3 [place]) metformin 1,000 mg tablet 1,000 mg PO [...] 2 current occupational status: employed current occupation: [employer] current occupational exposures/hazards: No pets and [...] physical activity do you participate in: none matt/restoration: None seatbelt use: always do you feel safe at home: Yes additional social history: Patient works at [employer]- Works at [employer] History 4 Elective abortions Hx Para 2 Spontaneous abortions 1 Hx # Term Pregnancies 2 Ectopic pregnancies Hx # Pregnancies Multiple births # of living children 2 Past Pregnancies Del. Date Name GA/Weeks Outcome Route Bth Weight Gen Labor Lgth Anesthesia Del Locatn Provider FOB 07/20/20 Andre 37 live - full term vacuum 8# 11oz Male [facility] Myke ellison 08/20/23 Radames Elizondo 38 [...] -???-???-???-???-???-?? ?-???-???-? (more content not included)... Normal [facility] L[employer]otive Crane Operator Helper Office Visit Reporton 01-08-2025 Locomotive Crane Operator Helper Office Visit Report [facility]'s [address], [address] [place] [address] OFFICE VISIT Date of Service: 01/08/25 MR#: [id number] Acct: [id number] Name: AZAEL SULTANA Rep #: [id number] : 2000 Provider: MING cordero Age/Sex: 24/F Location[place] [facility] [place] Status: Signed Intake Vital Signs 12/11/24 15:58 12/26/24 14:28 01/08/25 13:50 01/08/25 13:57 Height 5 ft 3 in 5 ft 3 in 5 ft 3 in 5 ft 3 in Weight: 271 lb 4 oz BMI 48.0 BP 140/82 H Intake Visit Reasons: 36wk ob Chief Complaint: 36 Week OB Belt Notcher Required: No Is patient in pain?: No Allergies adhesive tape Allergy (Mild, Verified 01/08/25 13:48) Rash Medications ???Medication ???Instructions ???Recorded ???Confirmed ???Type multivit-min no.71-iron fum 28 300 cap PO DAILY 3 01/08/25 History mg-folate no.1 1 mg-dha 300 mg capsule (PNV-[place]) ondansetron 4 mg disintegrating 4 mg PO Q4H PRN nausea and 4 01/08/25 Rx tablet vomiting #60 tabs metoclopramide HCl 10 mg tablet 10 mg PO TID nausea #90 tabs 08/2701/08/25 Rx (Reglan) 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 sensor (FreeStyle #1 ea 12/03/24 01/08/25 Rx Dot 3 Sensor device) 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 current occupational exposures/hazards: No pets and animals: [...] physical activity do you participate in: none matt/restoration: None seatbelt use: always do you feel safe at home: Yes additional social history: Patient works at [employer]- Works at [employer] History 4 Elective abortions Hx Para 2 Spontaneous abortions 1 Hx # Term Pregnancies 2 Ectopic pregnancies Hx # Pregnancies Multiple births # of living children 2 Past Pregnancies Del. Date Name GA/Weeks Outcome Route Bth Weight Gen Labor Lgth Anesthesia Del Locatn Provider FOB 07/20/20 Andre 37 live - full term vacuum 8# 11oz Male [facility] Myke ellison 08/20/23 Radames Elizondo 38 [...] up unless (more content not included)... [facility] Platelet countOrdered By: Davi Porter on 01-08-2025 Platelets (Bld) [#/Vol] 301 10*3/uL 150-450 [facility] Protein+Creatinine Ratio,Uri neon 01-08-2025 PROT:CRE RATIO 97 mg/g CRE Normal 0-200 [facility] Comment on above: Performed By: #### M 100.3400 #### [facility] [address] [place], [address] Protein (U) [Mass/Vol] 25.5 mg/dL High 0.0-12.0 [facility] Comment on above: Performed By: #### M 100.3400 #### [facility] [address] [place], [address] UR CREAT 263.00 mg/dL High 28.00-217.00 [facility] Comment on above: Performed By: #### M 100.3400 #### [facility] [address] [place], [address] RBC Auto (Bld) [#/Vol]Ordere d By: Evelin Porter on 01-08-2025 RBC (Bld) [#/Vol] 3.88 10*6/uL Low 4.2-5.4 [facility] Random urine creatinine jose cruz urement (mass/volume)Ordered By: Evelin Porter on 01-08-2025 Creatinine Unsp time (U) [Mass/Vol] 263.00 mg/dL High 28.00-217.00 [facility] Serum Creatinine AND GFRon 0 01-08-2025 Creatinine [Mass/Vol] 0.52 mg/dL Low 0.70-1.20 [facility] Comment on above: Performed By: #### M 100.3400 #### [facility] [address] [place], [address] ECRCL 212.26 ml/min Normal 50-250 [facility] Comment on above: Performed By: #### M 100.3400 #### [facility] [address] [place], [address] GFR/1.73 sq M.predicted among non-blacks MDRD (S/P/Bld) [Vol rate/Area] 133 mL/min/{1.73_m2} Normal >60 [facility] Comment on above: Result Comment: mL/m in/1.73m2 CKD-EPI Creatinine Equation (2020) Performed By: #### M 100.3400 #### [facility] [address] [place], [place], [address] Serum creatinine measurement (mass/volume)Ordered By: Evelin Porter on 01-08-2025 Creatinine [Mass/Vol] 0.52 mg/dL Low 0.70-1.20 [facility] Serum or plasma alanine purdy otransferase (ALT) measurementOrdered By: Evelin Porter on 01-08-2025 ALT [Catalytic activity/Vol] U/L <35 [facility] Serum or plasma uric acid me asurement (mass/volume)Ordered By: Evelin Porter on 01-08-2025 Urate [Mass/Vol] 4.9 mg/dL 2.6-6.0 [facility] Comment on above: The drugs N-Acetylcy steine and Metamizole may falsely depress this assay. Uric Acidon 01-08-2025 URIC 4.9 mg/dL Normal 2.6-6.0 [facility] Comment on above: Result Comment: The drugs N-Acetylcysteine and Metamizole may falsely depress this assay. Performed By: #### M 100.3400 #### [facility] [address] [place], [place], [address] Urine protein measurement (m ass/volume)Ordered By: Evelin Porter on 01-08-2025 Protein (U) [Mass/Vol] 25.5 mg/dL High 0.0-12.0 [facility] Urine protein/creatinine mas s ratioOrdered By: Evelin Porter on 01-08-2025 Protein/Creatinine (U) [Mass ratio] 97 mg/g CRE 0-200 [facility] White blood cell (WBC) count Ordered By: Evelin Porter on 01-08-2025 WBC (Bld) [#/Vol] 11.7 10*3/uL High 4.4-11.0 [facility] OB Biophysical Prof W/O NSTo n 01-01-2025 OB Biophysical Prof W/O NST [facility] Imaging Services [address] [place], [place] [address] OB Biophysical Prof W/O NST MR#: [id number] Acct: [id number] Name: AZAEL SULTANA Rep #: [id number] : 2000 F 24 From: Franki Vanessa DO PCP: MING Sagastume Status: [facility] CLI Study: OB Biophysical Prof W/O NST Date of Exam: 09/23 Exam# [id number] Ordering Dr: Fadumo Zelaya PROCEDURE: OB BIOPHYSICAL [...] IMPRESSION: Biophysical profile score: 8/8 Reading Location: [facility] CC: MING Ruiz; Dr. Fadumo Zelaya MD Legal Specialist: Signed Normal [facility] Absolute lymphocyte countOrd ered By: Fadumo Zelaya on 12-26-2024 Lymphocytes Auto (Unsp spec) [#/Vol] 2.01 10*3/uL 0.83-4.51 [facility] Absolute neutrophil countOrd ered By: Fadumo Zelaya on 12-26-2024 Neutrophils (Bld) [#/Vol] 10.1 10*3/uL High 2.0-7.7 [facility] Anion gap in Serum or Plasma Ordered By: Fadumo Zelaya on 12-26-2024 Anion gap [Moles/Vol] 12 mmol/L 5-15 [facility] Automated lymphocyte count a s percentage of total leukocytesOrdered By: Fadumo Zelaya on 12-26-2024 Lymphocytes/100 WBC Auto (Unsp spec) 15.3 % Low 19-41 [facility] BUN/creatinine ratioOrdered By: Fadumo Zelaya on 12-26-2024 Urea nitrogen/Creatinine [Mass ratio] 14.4 mg/mg 10-20 [facility] Basophil percentageOrdered B y: Fadumo Zelaya on 12-26-2024 Basophils/100 WBC (Bld) 0.5 % 0-1 [facility] Bilirubin, totalOrdered By: Fadumo Zelaya on 12-26-2024 Bilirubin [Mass/Vol] 0.18 mg/dL 0.00-1.30 [facility] CBC W/Diff, Automatedon 12-01 Absolute Lymph 2.01 X10 3/uL Normal 0.83-4.51 [facility] Comment on above: Performed By: #### L 100.0100, L500.4050 #### [facility] [address] [place], [place], [address] Absolute Neut 10.1 X10 3/uL High 2.0-7.7 [facility] Comment on above: Performed By: #### L 100.0100, L500.4050 #### [facility] [address] [place], [address] Basophils/100 WBC (Bld) 0.5 % Normal 0-1 [facility] Comment on above: Performed By: #### L 100.0100, L500.4050 #### [facility] [address] [place], [address] Eosinophils/100 WBC (Bld) 0.6 % Normal 0-5 [facility] Comment on above: Performed By: #### L 100.0100, L500.4050 #### [facility] [address] [place], [address] Erythrocyte distribution width (RBC) [Ratio] 14.6 % Normal 11.6-14.6 [facility] Comment on above: Performed By: #### L 100.0100, L500.4050 #### [facility] [address] [place], [address] Hematocrit (Bld) [Volume fraction] 37.3 % Normal 37-47 [facility] Comment on above: Performed By: #### L 100.0100, L500.4050 #### [facility] [address] [place], [address] Hemoglobin (Bld) [Mass/Vol] 12.3 g/dL Normal 12.0-15.0 [facility] Comment on above: Performed By: #### L 100.0100, L500.4050 #### [facility] [address] [place], [address] IG% 1.600 High 0.0-0.9 [facility] Comment on above: Result Comment: IG% - Immature Granulocytes (promyelocytes, myelocytes and metamyelocytes) > 1% indicates that a LEFT SHIFT is Present. Performed By: #### L 100.0100, L500.4050 #### [facility] [address] [place], [address] Lymphocytes/100 WBC (Bld) 15.3 % Low 19-41 [facility] Comment on above: Performed By: #### L 100.0100, L500.4050 #### [facility] [address] [place], [address] MCH (RBC) [Entitic mass] 29.5 pg Normal 27.0-32.0 [facility] Comment on above: Performed By: #### L 100.0100, L500.4050 #### [facility] [address] [place], [address] MCHC (RBC) [Mass/Vol] 33.0 g/dL Normal 32-36 [facility] Comment on above: Performed By: #### L 100.0100, L500.4050 #### [facility] [address] [place], [address] MCV (RBC) [Entitic vol] 89.4 fL Normal 81-99 [facility] Comment on above: Performed By: #### L 100.0100, L500.4050 #### [facility] [address] [place], [address] Monocytes/100 WBC (Bld) 4.8 % Normal 0-10 [facility] Comment on above: Performed By: #### L 100.0100, L500.4050 #### [facility] [address] [place], [address] Neutrophils/100 WBC (Bld) 77.2 % High 47-70 [facility] Comment on above: Performed By: #### L 100.0100, L500.4050 #### [facility] [address] [place], [address] Nucleated RBC (Bld) [#/Vol] 0 10*3/uL Normal 0-5 [facility] Comment on above: Performed By: #### L 100.0100, L500.4050 #### [facility] [address] [place], [address] Platelet mean volume (Bld) [Entitic vol] 10.4 fL Normal 6.2-12.0 [facility] Comment on above: Performed By: #### L 100.0100, L500.4050 #### [facility] [address] [place], [address] Platelets (Bld) [#/Vol] 340 10*3/uL Normal 150-450 [facility] Comment on above: Performed By: #### L 100.0100, L500.4050 #### [facility] [address] [place], [address] RBC (Bld) [#/Vol] 4.17 10*6/uL Low 4.2-5.4 [facility] Comment on above: Performed By: #### L 100.0100, L500.4050 #### [facility] [address] [place], [address] RDW SD 47.1 fl High 35.1-43.9 [facility] Comment on above: Performed By: #### L 100.0100, L500.4050 #### [facility] [address] [place], [address] WBC (Bld) [#/Vol] 13.1 10*3/uL High 4.4-11.0 [facility] Comment on above: Performed By: #### L 100.0100, L500.4050 #### [facility] [address] [place], [address] Carbon dioxide, total [Moles /volume] in Central venous bloodOrdered By: Fadumo Zelaya on 12-26-2024 CO2 [Moles/Vol] 21.8 mmol/L 21.0-32.0 [facility] Chloride assayOrdered By: Ene Zelaya on 12-26-2024 Chloride [Moles/Vol] 100 mmol/L 98-108 [facility] Comprehensive Metabolic Prof ilon 12-26-2024 Albumin [Mass/Vol] 3.7 g/dL Normal 3.5-5.0 [facility] Comment on above: Performed By: #### L 100.0100, L500.4050 #### [facility] [address] [place], [address] Albumin/Globulin [Mass ratio] 1.2 {ratio} Normal 0.9-2.4 [facility] Comment on above: Performed By: #### L 100.0100, L500.4050 #### [facility] [address] [place], [address] ALK PHOS 124 U/L High 35-104 [facility] Comment on above: Performed By: #### L 100.0100, L500.4050 #### [facility] [address] [place], [address] ALT [Catalytic activity/Vol] U/L Normal <=34 [facility] Comment on above: Performed By: #### L 100.0100, L500.4050 #### [facility] [address] [place], [address] AST [Catalytic activity/Vol] 12 U/L Normal <=31 [facility] Comment on above: Performed By: #### L 100.0100, L500.4050 #### [facility] [address] [place], [address] Bilirubin [Mass/Vol] 0.18 mg/dL Normal 0.00-1.30 [facility] Comment on above: Performed By: #### L 100.0100, L500.4050 #### [facility] [address] [place], [address] BUN/CRE 14.4 RATIO Normal 10-20 [facility] Comment on above: Performed By: #### L 100.0100, L500.4050 #### [facility] [address] [place], [address] Calcium [Mass/Vol] 9.6 mg/dL Normal 7.6-11.0 [facility] Comment on above: Performed By: #### L 100.0100, L500.4050 #### [facility] [address] [place], [address] Chloride [Moles/Vol] 100 mmol/L Normal 98-108 [facility] Comment on above: Performed By: #### L 100.0100, L500.4050 #### [facility] [address] [place], [address] CO2 [Moles/Vol] 21.8 mmol/L Normal 21.0-32.0 [facility] Comment on above: Performed By: #### L 100.0100, L500.4050 #### [facility] [address] [place], [address] Creatinine [Mass/Vol] 0.49 mg/dL Low 0.70-1.20 [facility] Comment on above: Performed By: #### L 100.0100, L500.4050 #### [facility] [address] [place], [address] GAP 12 Normal 5-15 [facility] Comment on above: Performed By: #### L 100.0100, L500.4050 #### [facility] [address] [place], [address] GFR/1.73 sq M.predicted among non-blacks MDRD (S/P/Bld) [Vol rate/Area] 135 mL/min/{1.73_m2} Normal >60 [facility] Comment on above: Result Comment: mL/m in/1.73m2 CKD-EPI Creatinine Equation (2020) Performed By: #### L 100.0100, L500.4050 #### [facility] [address] [place], [address] Globulin (S) [Mass/Vol] 3.1 g/dL Normal 2.2-4.2 [facility] Comment on above: Performed By: #### L 100.0100, L500.4050 #### [facility] [address] [place], [address] Glucose [Mass/Vol] 109 mg/dL High 70-99 [facility] Comment on above: Performed By: #### L 100.0100, L500.4050 #### [facility] [address] [place], [address] Potassium [Moles/Vol] 4.0 mmol/L Normal 3.3-5.1 [facility] Comment on above: Performed By: #### L 100.0100, L500.4050 #### [facility] [address] [place], [address] Sodium [Moles/Vol] 133 mmol/L Normal 133-145 [facility] Comment on above: Performed By: #### L 100.0100, L500.4050 #### [facility] [address] [place], [address] T PROT 6.8 g/dL Normal 5.9-8.4 [facility] Comment on above: Performed By: #### L 100.0100, L500.4050 #### [facility] [address] [place], [address] Urea nitrogen [Mass/Vol] 7 mg/dL Normal 4-19 [facility] Comment on above: Performed By: #### L 100.0100, L500.4050 #### [facility] [address] [place], [address] Eosinophil percentageOrdered By: Fadumo Zelaya on 12-26-2024 Eosinophils/100 WBC (Bld) 0.6 % 0-5 [facility] Erythrocyte distribution wid th ratioOrdered By: Fadumo Zelaya on 12-26-2024 Erythrocyte distribution width (RBC) [Ratio] 14.6 % 11.6-14.6 [facility] Erythrocyte distribution wid th standard deviationOrdered By: Fadumo Zelaya on 12-26-2024 Erythrocyte distribution width (RBC) [Ratio] 47.1 fl High 35.1-43.9 [facility] Glomerular filtration rate ( GFR) estimation/1.73 sq m using serum, plasma, or whole bOrdered By: Fadumo Zelaya on 12-26-2024 GFR/1.73 sq M.predicted among non-blacks MDRD (S/P/Bld) [Vol rate/Area] 135 mL/min/{1.73_m2} >60 [facility] Comment on above: mL/min/1.73m2 CKD-EP I Creatinine Equation (2020) Hematocrit Auto (Bld) [Volum e fraction]Ordered By: Fadumo Zelaya on 12-26-2024 Hematocrit (Bld) [Volume fraction] 37.3 % 37-47 [facility] Hemoglobin measurementOrdere d By: Fadumo Zelaya on 12-26-2024 Hemoglobin (Bld) [Mass/Vol] 12.3 g/dL 12.0-15.0 [facility] Immature granulocytes/100 WB C Auto (Bld)Ordered By: Fadumo Zelaya on 12-26-2024 Immature granulocytes/100 WBC (Bld) 1.600 % High 0.0-0.9 [facility] Comment on above: IG% - Immature Granu locytes (promyelocytes, myelocytes and metamyelocytes) > 1% indicates that a LEFT SHIFT is Present. Laboratory - Chemistry and C hemistry - challengeOrdered By: Fadumo Zelaya on 12-26-2024 AST [Catalytic activity/Vol] 12 U/L <32 [facility] - Chemistry and C hemistry - challengeOrdered By: Evelin Porter on 12-26-2024 Bilirubin Ql (U) Negative [facility] Glucose Ql (U) Negative [facility] Ketones Ql (U) Negative [facility] pH (U) 5.0 [pH] [facility] Specific gravity (U) [Rel density] 1.025 [facility] Urobilinogen (U) [Mass/Vol] 0.2276319 mg/dL [facility] - Hematology and Cell countsOrdered By: Evelin Porter on 12-26-2024 Hemoglobin Ql (U) Negative [facility] - Specimen inform ationOrdered By: Evelin Porter on 12-26-2024 Clarity (U) Cloudy [facility] Color (U) STRAW [facility] - UrinalysisOrder ed By: Evelin Porter on 12-26-2024 Nitrite Ql (U) Negative [facility] Protein Ql (U) Trace [facility] MCV (mean corpuscular volume ) determinationOrdered By: Fadumo Zelaya on 12-26-2024 MCV (RBC) [Entitic vol] 89.4 fL 81-99 [facility] Mean corpuscular hemoglobin (MCH) determinationOrdered By: Fadumo Zelaya on 12-26-2024 MCH (RBC) [Entitic mass] 29.5 pg 27.0-32.0 [facility] Mean corpuscular hemoglobin concentration (MCHC) determinationOrdered By: Fadumo Zelaya on 12-26-2024 MCHC (RBC) [Mass/Vol] 33.0 g/dL 32-36 [facility] Mean platelet volume determi nationOrdered By: Fadumo Zelaya on 12-26-2024 Platelet mean volume (Bld) [Entitic vol] 10.4 fL 6.2-12.0 [facility] Monocyte percentageOrdered B y: Fadumo Zelaya on 12-26-2024 Monocytes/100 WBC (Bld) 4.8 % 0-10 [facility] Neutrophil percentageOrdered By: Fadumo Zelaya on 12-26-2024 Neutrophils/100 WBC (Bld) 77.2 % High 47-70 [facility] No Panel InformationOrdered By: Evelin Porter on 12-26-2024 Urine Leukocytes Negatve [facility] Nucleated red blood cell per centageOrdered By: Fadumo Zelaya on 12-26-2024 Nucleated RBC/100 WBC (Bld) [Ratio] 0 % 0-5 [facility] [employer] Hel[employer] Office Visit Reporton 12-26-2024 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 Fadumo smith MD Age/Sex: 24/F [place] [facility] [place]: Signed Intake Vital Signs 07/03/24 13:01 12/16/24 10:39 12/26/24 14:26 12/26/24 14:28 Height 5 ft 3 in 5 ft 3 in 5 ft 3 in 5 ft 3 in Weight: 264 lb 6 oz BMI 46.8 BP 138/82 H Intake Visit Reasons: 34 WK OB Belt Notcher Required: No Is patient in pain?: No Allergies adhesive tape Allergy (Mild, Verified 12/26/24 14:26) Rash Medications ???Medication ???Instructions ???Recorded ???Confirmed ???Type multivit-min no.71-iron fum 28 300 cap PO DAILY 3 12/26/24 History mg-folate no.1 1 mg-dha 300 mg capsule (PNV-[place]) ondansetron 4 mg disintegrating 4 mg PO Q4H PRN nausea and 4 12/26/24 Rx tablet vomiting #60 tabs metoclopramide HCl 10 mg tablet 10 mg PO TID nausea #90 tabs 08/2712/26/24 Rx (Reglan) 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 sensor (FreeStyle #1 ea 12/03/24 12/26/24 Rx Dot 3 Sensor device) 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 current occupational exposures/hazards: No pets and animals: [...] physical activity do you participate in: none matt/restoration: None seatbelt use: always do you feel safe at home: Yes additional social history: Patient works at [employer]- Works at [employer] History 4 Elective abortions Hx Para 2 Spontaneous abortions 1 Hx # Term Pregnancies 2 Ectopic pregnancies Hx # Pregnancies Multiple births # of living children 2 Past Pregnancies Del. Date Name GA/Weeks Outcome Route Bth Weight Infant Gen Labor Lgth Anesthesia Del Locatn Provider FOB 07/20/20 Andre 37 live - full term vacuum 8# 11oz Male [facility] Myke ellison 08/20/23 Radames Elizondo 38 live - full term 7lbs 8oz Male [facility] SM Delivery Date: 07/20/20 Last Updated [...] Urine Pr (more content not included)... Normal [facility] Platelet countOrdered By: Ene Zelaya on 12-26-2024 Platelets (Bld) [#/Vol] 340 10*3/uL 150-450 [facility] Potassium measurement (mass/ volume)Ordered By: Fadumo Zelaya on 12-26-2024 Potassium (Unsp spec) [Mass/Vol] 4.0 mmol/L 3.3-5.1 [facility] Protein+Creatinine Ratio,Uri neon 12-26-2024 PROT:CRE RATIO 182 mg/g CRE Normal 0-200 [facility] Comment on above: Performed By: #### L 501.0900 #### [facility] [address] [place], [address] Protein (U) [Mass/Vol] 28.8 mg/dL High 0.0-12.0 [facility] Comment on above: Performed By: #### L 501.0900 #### [facility] [address] [place], [address] UR CREAT 158.00 mg/dL Normal 28.00-217.00 [facility] Comment on above: Performed By: #### L 501.0900 #### [facility] [address] [place], [address] RBC Auto (Bld) [#/Vol]Ordere d By: Fadumo Zelaya on 12-26-2024 RBC (Bld) [#/Vol] 4.17 10*6/uL Low 4.2-5.4 [facility] Random urine creatinine jose cruz urement (mass/volume)Ordered By: Fadumo Zelaya on 12-26-2024 Creatinine Unsp time (U) [Mass/Vol] 158.00 mg/dL 28.00-217.00 [facility] Serum creatinine measurement (mass/volume)Ordered By: Fadumo Zelaya on 12-26-2024 Creatinine [Mass/Vol] 0.49 mg/dL Low 0.70-1.20 [facility] Serum globulin measurementOr dered By: Fadumo Zelaya on 12-26-2024 Globulin (S) [Mass/Vol] 3.1 g/dL 2.2-4.2 [facility] Serum glucose measurement (m ass/volume)Ordered By: Fadumo Zelaya on 12-26-2024 Glucose [Mass/Vol] 109 mg/dL High 70-99 [facility] Serum or plasma alanine purdy otransferase (ALT) measurementOrdered By: Fadumo Zelaya on 12-26-2024 ALT [Catalytic activity/Vol] U/L <35 [facility] Serum or plasma albumin jose cruz urement (mass/volume)Ordered By: Fadumo Zelaya on 12-26-2024 Albumin [Mass/Vol] 3.7 g/dL 3.5-5.0 [facility] Serum or plasma albumin/glob ulin mass ratioOrdered By: Fadumo Zelaya on 12-26-2024 Albumin/Globulin [Mass ratio] 1.2 {ratio} 0.9-2.4 [facility] Serum or plasma alkaline silvio sphatase measurementOrdered By: Fadumo Zelaya on 12-26-2024 ALP [Catalytic activity/Vol] 124 U/L High 35-104 [facility] Serum or plasma calcium jose cruz urement (mass/volume)Ordered By: Fadumo Zelaya on 12-26-2024 Calcium [Mass/Vol] 9.6 mg/dL 7.6-11.0 [facility] Serum or plasma urea nitroge n measurement (mass/volume)Ordered By: Fadumo Zelaya on 12-26-2024 Urea nitrogen [Mass/Vol] 7 mg/dL 4-19 [facility] Sodium levelOrdered By: Reddy Zelaya on 12-26-2024 Sodium [Moles/Vol] 133 mmol/L 133-145 [facility] Total proteinOrdered By: Eb Zelaya on 12-26-2024 Protein [Mass/Vol] 6.8 g/dL 5.9-8.4 [facility] Urine protein measurement (m ass/volume)Ordered By: Fadumo Zelaya on 12-26-2024 Protein (U) [Mass/Vol] 28.8 mg/dL High 0.0-12.0 [facility] Urine protein/creatinine mas s ratioOrdered By: Fadumo Zelaya on 12-26-2024 Protein/Creatinine (U) [Mass ratio] 182 mg/g CRE 0-200 [facility] White blood cell (WBC) count Ordered By: Fadumo Zelaya on 12-26-2024 WBC (Bld) [#/Vol] 13.1 10*3/uL High 4.4-11.0 [facility] OB Limited With Biometricson 12-17-2024 OB Limited With Biometrics [facility] Imaging Services [address] [place], [place] [id number] OB Limited With Biometrics MR#: [id number] Acct: [id number] Name: AZAEL SULTANA Rep #: [id number] : 2000 F 24 From: Eduardo noe MD PCP: MING Sagastume Status: REG CLI Study: OB Limited With Biometrics Date of Exam: 12/17 Exam# [id number] Ordering Dr: Marietta Ghosh CNM PROCEDURE: OB [...] 33 weeks and 3 days. Reading Location: [place] [address] CC: RACHAEL Ghosh; SWINE GENETICS RESEARCHERRaymundo Ruiz Legal Specialist: Signed Normal [facility] Endocrinology Visit Reporton 12-16-2024 Endocrinology Visit Report [facility] [address] [place] [address] [address] [place] [address] OFFICE VISIT Date of Service: 12/16/24 MR#: [id number] Acct: [id number] Name: AZAEL SULTANA Rep #: [id number] : 2000 Provider: Shaneka Dooley Age/Sex: 24/F [place] [facility] [place] Status: Signed Intake Vital Signs 11/11/24 15:03 12/11/24 15:58 12/16/24 10:39 Height 5 ft 3 in 5 ft 3 in 5 ft 3 in Weight: 267 lb BMI 47.2 BP 120/77 Blood Pressure Location Lt brachial Position Sitting Pulse 88 Pulse Source Monitor Pulse Oximetry (%) 97 Oxygen Delivery Method room air Intake Visit Reasons: Gestational Diabetes Chief Complaint: GDM Belt Notcher Required: No Accompanied by: Self Is patient in pain?: No Allergies adhesive tape Allergy (Mild, Verified 12/16/24 10:40) Rash Medications ???Medication ???Instructions ???Recorded ???Confirmed ???Type multivit-min no.71-iron fum 28 300 cap PO DAILY 3 12/16/24 History mg-folate no.1 1 mg-dha 300 mg capsule (PNV-[place]) ondansetron 4 mg disintegrating 4 mg PO Q4H PRN nausea and 4 12/16/24 Rx tablet vomiting #60 tabs metoclopramide HCl 10 mg tablet 10 mg PO TID nausea #90 tabs 08/2712/16/24 Rx (Reglan) 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 sensor (FreeStyle #1 ea 12/03/24 12/16/24 Rx Dot 3 Sensor device) 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,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 Report [address], [address] [place] [address] OFFICE VISIT Date of Service: 12/11/24 MR#: [id number] Acct: [id number] Name: AZAEL SULTANA Rep #: [id number] : 2000 Provider: MING cordero Age/Sex: 24/F [place] [facility] [place]: Signed with Addenda ADDENDUM by Chelsie Garcia on 12/11/24 at 1620 Office Procedure Documentation entered by Chelsie Garcia 12/11/24 16:20: Immunizations Adacel(Tdap Adolesn/Adult)(PF) 2 Lf-(2.5-5-3-5)-5 Lf/0.5 mL IM syringe Performing Provider: Anisa Blackmon SWINE GENETICS RESEARCHER, MING Performing Location: [facility] Administered by: Chelsie Garcia on 12/11/24 16:19 Dose Route Admin Location Dispensed Lot Number Expiration Date NDC Man ufacturer 0.5 mL IM Left Deltoid 0.5 mL [id number] 11/29/25 82836-404-06 SANOFI-P ASTEUR VIS Given Date VIS Provided [...] WK OB Chief Complaint: 32 Week OB Belt Notcher Required: No Is patient in pain?: No Allergies adhesive tape Allergy (Mild, Verified 12/11/24 15:49) Rash Medications ???Medication ???Instructions ???Recorded ???Confirmed ???Type multivit-min no.71-iron fum 28 300 cap PO DAILY 3 12/11/24 History mg-folate no.1 1 mg-dha 300 mg capsule (PNV-[place]) ondansetron 4 mg disintegrating 4 mg PO Q4H PRN nausea and 4 12/11/24 Rx tablet vomiting #60 tabs metoclopramide HCl 10 mg tablet 10 mg PO TID nausea #90 tabs 08/2712/11/24 Rx (Reglan) flash glucose scanning reader #1 ea 11/12/24 12/11/24 Rx (FreeStyle Dot 2 [place]) flash glucose sensor (FreeStyle #1 ea 11/12/24 12/11/24 Rx Dot 2 Sensor kit) 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 sensor (FreeStyle #1 ea 12/03/24 12/11/24 Rx Dot 3 Sensor device) 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,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, cont #1 ea 12/03/24 12/11/24 Rx (FreeStyle Dot 3 [place]) Last Menstrual Period: 05/02/24 Zika: Zika virus screening: Negative : No PFSH PFSH Medical History Seasonal allergies Hx of chlamydia infection Adopted Chlamydia infection affecting Anxiety Surgical History History of dental surgery Family History Mother Diabetes Grandfather Diabetes Social History adopted: Yes (limited family medical history known) household members: spouse, family and children number of children: 2 current occupational status: employed current occupation: [employer] current occupational exposures/hazards: No pets and [...] physical activity do you participate in: none matt/restoration: None seatbelt use: always do you feel safe at home: Yes additional social history: Patient works at [employer]- Works at [employer] History 4 Elective abortions Hx Para 2 Spontaneous abortions 1 Hx # Term Pregnancies 2 Ectopic pregnancies Hx # Pregnancies Multiple births # of living children 2 Past Pregnancies Del. Date Name GA/Weeks Outcome Route Bth Weight Gen Labor Lgth Anesthesia Del Locatn Provider FOB 07/20/20 Andre 37 live - full term vacuum 8# 11oz Male [facility] Myke ellison 08/20/23 Radameslizz Nayakon 38 live - full term 7lbs 8oz Male [facility] SM Delivery Date: 07/20/20 Last Updated [...] 6d Other (more content not included)... Normal [facility] Absolute lymphocyte countOrd ered By: Marietta Ghosh on 11-11-2024 Lymphocytes Auto (Unsp spec) [#/Vol] 1.79 10*3/uL 0.83-4.51 [facility] Absolute neutrophil countOrd ered By: Marietta Ghosh on 11-11-2024 Neutrophils (Bld) [#/Vol] 8.6 10*3/uL High 2.0-7.7 [facility] Automated lymphocyte count a s percentage of total leukocytesOrdered By: Marietta Ghosh on 11-11-2024 Lymphocytes/100 WBC Auto (Unsp spec) 16.0 % Low 19-41 [facility] Basophil percentageOrdered B y: Marietta Ghosh on 11-11-2024 Basophils/100 WBC (Bld) 0.5 % 0-1 [facility] CBC W/Diff, Automatedon 10-30 Absolute Lymph 1.79 X10 3/uL Normal 0.83-4.51 [facility] Comment on above: Performed By: #### L 205.1000 #### [facility] [address] [place], [address] Absolute Neut 8.6 X10 3/uL High 2.0-7.7 [facility] Comment on above: Performed By: #### L 205.1000 #### [facility] [address] [place], [address] Basophils/100 WBC (Bld) 0.5 % Normal 0-1 [facility] Comment on above: Performed By: #### L 205.1000 #### [facility] [address] [place], [address] Eosinophils/100 WBC (Bld) 1.0 % Normal 0-5 [facility] Comment on above: Performed By: #### L 205.1000 #### [facility] [address] [place], [address] Erythrocyte distribution width (RBC) [Ratio] 14.0 % Normal 11.6-14.6 [facility] Comment on above: Performed By: #### L 205.1000 #### [facility] [address] [place], [address] Hematocrit (Bld) [Volume fraction] 35.7 % Low 37-47 [facility] Comment on above: Performed By: #### L 205.1000 #### [facility] [address] [place], [address] Hemoglobin (Bld) [Mass/Vol] 11.8 g/dL Low 12.0-15.0 [facility] Comment on above: Performed By: #### L 205.1000 #### [facility] [address] [place], [address] IG% 2.100 High 0.0-0.9 [facility] Comment on above: Result Comment: IG% - Immature Granulocytes (promyelocytes, myelocytes and metamyelocytes) > 1% indicates that a LEFT SHIFT is Present. Performed By: #### L 205.1000 #### [facility] [address] [place], [address] Lymphocytes/100 WBC (Bld) 16.0 % Low 19-41 [facility] Comment on above: Performed By: #### L 205.1000 #### [facility] [address] [place], [address] MCH (RBC) [Entitic mass] 29.6 pg Normal 27.0-32.0 [facility] Comment on above: Performed By: #### L 205.1000 #### [facility] [address] [place], [address] MCHC (RBC) [Mass/Vol] 33.1 g/dL Normal 32-36 [facility] Comment on above: Performed By: #### L 205.1000 #### [facility] [address] [place], [address] MCV (RBC) [Entitic vol] 89.7 fL Normal 81-99 [facility] Comment on above: Performed By: #### L 205.1000 #### [facility] [address] [place], [address] Monocytes/100 WBC (Bld) 3.8 % Normal 0-10 [facility] Comment on above: Performed By: #### L 205.1000 #### [facility] [address] [place], [address] Neutrophils/100 WBC (Bld) 76.6 % High 47-70 [facility] Comment on above: Performed By: #### L 205.1000 #### [facility] [address] [place], [address] Nucleated RBC (Bld) [#/Vol] 0 10*3/uL Normal 0-5 [facility] Comment on above: Performed By: #### L 205.1000 #### [facility] [address] [place], [address] Platelet mean volume (Bld) [Entitic vol] 10.7 fL Normal 6.2-12.0 [facility] Comment on above: Performed By: #### L 205.1000 #### [facility] [address] [place], [address] Platelets (Bld) [#/Vol] 347 10*3/uL Normal 150-450 [facility] Comment on above: Performed By: #### L 205.1000 #### [facility] [address] [place], [address] RBC (Bld) [#/Vol] 3.98 10*6/uL Low 4.2-5.4 [facility] Comment on above: Performed By: #### L 205.1000 #### [facility] [address] [place], [address] RDW SD 45.7 fl High 35.1-43.9 [facility] Comment on above: Performed By: #### L 205.1000 #### [facility] [address] [place], [address] WBC (Bld) [#/Vol] 11.2 10*3/uL High 4.4-11.0 [facility] Comment on above: Performed By: #### L 205.1000 #### [facility] [address] [place], [address] Eosinophil percentageOrdered By: Marietta Ghosh on 11-11-2024 Eosinophils/100 WBC (Bld) 1.0 % 0-5 [facility] Erythrocyte distribution wid th ratioOrdered By: Marietta Ghosh on 11-11-2024 Erythrocyte distribution width (RBC) [Ratio] 14.0 % 11.6-14.6 [facility] Erythrocyte distribution wid th standard deviationOrdered By: Marietta Ghosh on 11-11-2024 Erythrocyte distribution width (RBC) [Ratio] 45.7 fl High 35.1-43.9 [facility] Glucose Challenge Gest 1H 50 qi 11-11-2024 GLU GEST 50g 1H 194 mg/dL High 70-140 [facility] Comment on above: Performed By: #### L 205.1000 #### [facility] [address] [facility] [place], [place], [address] Glucose measurement at 2 marvin rs post-dose gestational glucose tolerance testOrdered By: Marietta Ghosh on 11-11-2024 Glucose [Mass/Vol] 194 mg/dL High 70-140 [facility] HIVon 11-11-2024 HIV Non-Reactive Normal Nonreactive [facility] Comment on above: Result Comment: Non- Reactive Reactive Repeatedly reactive samples must be confirmed according to CDC recommended confirmatory algorithms. The subresults for either HIVAG or AHIV can be used as an aid in the selection of the confirmation algorithm for reactive samples. Send out specimens with Reactive results to [facility] for confirmation. Order the HIV antibody detection and differentiation: #[id number] Performed By: #### L 205.1000 #### [facility] [address] [facility] [place], [place], [address] Hematocrit Auto (Bld) [Volum e fraction]Ordered By: Marietta Ghosh on 11-11-2024 Hematocrit (Bld) [Volume fraction] 35.7 % Low 37-47 [facility] Hemoglobin measurementOrdere d By: Marietta Ghosh on 11-11-2024 Hemoglobin (Bld) [Mass/Vol] 11.8 g/dL Low 12.0-15.0 [facility] Immature granulocytes/100 WB C Auto (Bld)Ordered By: Marietta Ghosh on 11-11-2024 Immature granulocytes/100 WBC (Bld) 2.100 % High 0.0-0.9 [facility] Comment on above: IG% - Immature Granu locytes (promyelocytes, myelocytes and metamyelocytes) > 1% indicates that a LEFT SHIFT is Present. Laboratory - Chemistry and C hemistry - challengeOrdered By: Marietta Ghosh on 11-11-2024 Glucose Ql (U) Negative [facility] - UrinalysisOrder ed By: Marietta Ghosh on 11-11-2024 Protein Ql (U) Negative [facility] MCV (mean corpuscular volume ) determinationOrdered By: Marietta Ghosh on 11-11-2024 MCV (RBC) [Entitic vol] 89.7 fL 81-99 [facility] Mean corpuscular hemoglobin (MCH) determinationOrdered By: Marietta Ghosh on 11-11-2024 MCH (RBC) [Entitic mass] 29.6 pg 27.0-32.0 [facility] Mean corpuscular hemoglobin concentration (MCHC) determinationOrdered By: Marietta Ghosh on 11-11-2024 MCHC (RBC) [Mass/Vol] 33.1 g/dL 32-36 [facility] Mean platelet volume determi nationOrdered By: Marietta Ghosh on 11-11-2024 Platelet mean volume (Bld) [Entitic vol] 10.7 fL 6.2-12.0 [facility] Monocyte percentageOrdered B y: Marietta Ghosh on 11-11-2024 Monocytes/100 WBC (Bld) 3.8 % 0-10 [facility] Neutrophil percentageOrdered By: Marietta Ghosh on 11-11-2024 Neutrophils/100 WBC (Bld) 76.6 % High 47-70 [facility] No Panel InformationOrdered By: Marietta Ghosh on 11-11-2024 HIV (1&2) Antibody Non-Reactive Nonreactive [facility] Comment on above: Non-ReactiveReactive Repeatedly reactive samples must be confirmed according to CDC recommended confirmatory algorithms. The subresults for either HIVAG or AHIV can be used as an aid in the selection of the confirmation algorithm for reactive samples.Send out specimens with Reactive results to [facility] for confirmation.Order the HIV antibody detection and differentiation: #[id number] Nucleated red blood cell per centageOrdered By: Marietta Ghosh on 11-11-2024 Nucleated RBC/100 WBC (Bld) [Ratio] 0 % 0-5 [facility] Locomotive Crane Operator Helper Office Visit Reporton 11-11-2024 Locomotive Crane Operator Helper Office Visit Report [facility] [address], [address] [place] [address] OFFICE VISIT Date of Service: 11/11/24 MR#: [id number] Acct: [id number] Name: AZAEL SULTANA Rep #: [id number] : 2000 Provider: RACHAEL Gutiérrez ams Age/Sex: 24/F [place] [facility] [place]: Signed Intake Vital Signs 10/31/24 14:10 11/11/24 15:03 Height 5 ft 3 in 5 ft 3 in Weight: 264 lb 4 oz 261 lb 8 oz BMI 46.7 46.3 BP 129/84 H 120/82 H Intake Visit Reasons: 28 wk ob/glucose Chief Complaint: 28wk OB Belt Notcher Required: No Is patient in pain?: No Allergies adhesive tape Allergy (Mild, Verified 11/11/24 15:01) Rash Medications ???Medication ???Instructions ???Recorded ???Confirmed ???Type multivit-min no.71-iron fum 28 300 cap PO DAILY 3 11/11/24 History mg-folate no.1 1 mg-dha 300 mg capsule (PNV-[place]) ondansetron 4 mg disintegrating 4 mg PO [...] 2 current occupational status: employed current occupation: [employer] current occupational exposures/hazards: No pets and [...] physical activity do you participate in: none matt/restoration: None seatbelt use: always do you feel safe at home: Yes additional social history: Patient works at [employer]- Works at [employer] History 4 Elective abortions Hx Para 2 Spontaneous abortions 1 Hx # Term Pregnancies 2 Ectopic pregnancies Hx # Pregnancies Multiple births # of living children 2 Past Pregnancies Del. Date Name GA/Weeks Outcome Route Bth Weight Gen Labor Lgth Anesthesia Del Locatn Provider FOB 07/20/20 Andre 37 live - full term vacuum 8# 11oz Male [facility] Myke ellison 08/20/23 Radames Elizondo 38 live - full term 7lbs 8oz Male [facility] SM Delivery Date: 07/20/20 Last Updated [...] -???-???-???-???-???-?? ?-??? (more content not included)... [facility] Platelet countOrdered By: Jovan Ghosh on 11-11-2024 Platelets (Bld) [#/Vol] 347 10*3/uL 150-450 [facility] RBC Auto (Bld) [#/Vol]Ordere d By: Marietta Ghosh on 11-11-2024 RBC (Bld) [#/Vol] 3.98 10*6/uL Low 4.2-5.4 [facility] Syphilis Antibodieson 2024 Syphilis Abs Non-Reactive Normal Nonreactive [facility] Comment on above: Performed By: #### L 205.1000 #### [facility] [address] [place], [address] White blood cell (WBC) count Ordered By: Marietta Ghosh on 11-11-2024 WBC (Bld) [#/Vol] 11.2 10*3/uL High 4.4-11.0 [facility] Laboratory - Chemistry and C hemistry - challengeOrdered By: Marietta Ghosh on 10-31-2024 Glucose Ql (U) Negative [facility] - UrinalysisOrder ed By: Mariteta Ghosh on 10-31-2024 Protein Ql (U) Negative [facility] Locomotive Crane Operator Helper Office Visit Reporton 10-31-2024 Locomotive Crane Operator Helper Office Visit Report [facility] [address], [address] [place] [address] OFFICE VISIT Date of Service: 10/31/24 MR#: [id number] Acct: [id number] Name: AZAEL SULTANA Rep #: [id number] : 2000 Provider: RACHAEL Gutiérrez ams Age/Sex: 23/F [place] [facility] [place]: Signed Intake Vital Signs 07/03/24 13:01 10/02/24 15:00 10/31/24 14:10 Height 5 ft 3 in 5 ft 3 in 5 ft 3 in Weight: 264 lb 4 oz BMI 46.7 BP 129/84 H Intake Visit Reasons: 24 WK OB Chief Complaint: 26wk OB Belt Notcher Required: No Is patient in pain?: No Allergies adhesive tape Allergy (Mild, Verified 10/31/24 14:08) Rash Medications ???Medication ???Instructions ???Recorded ???Confirmed ???Type multivit-min no.71-iron fum 28 300 cap PO DAILY 3 10/31/24 History mg-folate no.1 1 mg-dha 300 mg capsule (PNV-[place]) ondansetron 4 mg disintegrating 4 mg PO [...] 2 current occupational status: employed current occupation: [employer] current occupational exposures/hazards: No pets and animals: [...] physical activity do you participate in: none matt/restoration: None seatbelt use: always do you feel safe at home: Yes additional social history: Patient works at [employer]- Works at [employer] History 4 Elective abortions Hx Para 2 Spontaneous abortions 1 Hx # Term Pregnancies 2 Ectopic pregnancies Hx # Pregnancies Multiple births # of living children 2 Past Pregnancies Del. Date Name GA/Weeks Outcome Route Bth Weight Gen Labor Lgth Anesthesia Del Locatn Provider FOB 07/20/20 Andre 37 live - full term vacuum 8# 11oz Male [facility] Myke ellison 08/20/23 Radames Elizondo 38 live - full term 7lbs 8oz Male [facility] SM Delivery Date: 07/20/20 Last Updated [...] 174 -???-???-???-???-???-?? ?- (more content not included)... [facility] Locomotive Crane Operator Helper Office Visit Reporton 10-02-2024 Locomotive Crane Operator Helper Office Visit Report [facility] [address], [address] [place] [address] OFFICE VISIT Date of Service: 10/02/24 MR#: [id number] Acct: [id number] Name: AZAEL SULTANA Rep #: [id number] : 2000 Provider: RACHAEL Gutiérrez ams Age/Sex: 23/F [place] [facility] [place]: Signed Intake Vital Signs 08/27/24 15:32 10/02/24 15:00 10/02/24 15:00 Height 5 ft 3 in 5 ft 3 in 5 ft 3 in Weight: 258 lb 2 oz BMI 45.7 BP 122/82 H Intake Visit Reasons: 20WK OB Chief Complaint: 20wk ob Belt Notcher Required: No Is patient in pain?: No Allergies adhesive tape Allergy (Mild, Verified 10/02/24 14:54) Rash Medications ???Medication ???Instructions ???Recorded ???Confirmed ???Type multivit-min no.71-iron fum 28 300 cap PO DAILY 3 10/02/24 History mg-folate no.1 1 mg-dha 300 mg capsule (PNV-[place]) ondansetron 4 mg disintegrating 4 mg PO [...] 2 current occupational status: employed current occupation: [employer] current occupational exposures/hazards: No pets and [...] physical activity do you participate in: none matt/restoration: None seatbelt use: always do you feel safe at home: Yes additional social history: Patient works at [employer]- Works at [employer] History 4 Elective abortions Hx Para 2 Spontaneous abortions 1 Hx # Term Pregnancies 2 Ectopic pregnancies Hx # Pregnancies Multiple births # of living children 2 Past Pregnancies Del. Date Name GA/Weeks Outcome Route Bth Weight Gen Labor Lgth Anesthesia Del Locatn Provider FOB 07/20/20 Andre 37 live - full term vacuum 8# 11oz Male [facility] Myke ellison 08/20/23 Radames Elizondo 38 live - full term 7lbs 8oz Male [facility] SM Delivery Date: 07/20/20 Last Updated [...] -???-???-???-???-???-?? ?-?? (more content not included)... [facility] SHOULDER COMPLETE RTon 09-23 SHOULDER COMPLETE RT [place] [address] Patient: AZAEL SULTANA Phone#: : [phone] Age: 23 Gender: F Pt. Type: Out Account: [id number] Location: 052 Ordering: BIRD RUIZ Exam Date: 09/23/2024/14:30 Family Phys: Charge Code: [id number] Physician: Bulloch Order #: [id number] Dose#: PROCEDURE: X-RAY SHOULDER COMPLETE RT MIN [...] Fraser MD on 09/23/2024 at 15:45 Normal [facility] Locomotive Crane Operator Helper Office Visit Reporton 08-27-2024 Locomotive Crane Operator Helper Office Visit Report [facility] [address], [address] [place] [address] OFFICE VISIT Date of Service: 08/27/24 MR#: [id number] Acct: [id number] Name: AZAEL SULTANA Rep #: [id number] : 2000 Provider: Dr. Fadumo smith MD Age/Sex: 23/F [place] [facility] [place]: Signed Intake Vital Signs 07/03/24 13:01 08/01/24 11:40 08/27/24 15:30 08/27/24 15:32 Height 5 ft 3 in 5 ft 3 in 5 ft 3 in 5 ft 3 in Weight: 255 lb 4 oz BMI 45.2 BP 135/82 H Intake Visit Reasons: 16 WK OB Belt Notcher Required: No Is patient in pain?: No Feel stressed/tense/nervous/ anxious/difficulty sleeping: not at all Allergies adhesive tape Allergy (Mild, Verified 08/27/24 15:30) Rash Medications ???Medication ???Instructions ???Recorded ???Confirmed ???Type multivit-min no.71-iron fum 28 300 cap PO DAILY 3 08/27/24 History mg-folate no.1 1 mg-dha 300 mg capsule (PNV-[place]) ondansetron 4 mg disintegrating 4 mg PO [...] 2 current occupational status: employed current occupation: [employer] current occupational exposures/hazards: No pets and animals: [...] physical activity do you participate in: none matt/restoration: None seatbelt use: always do you feel safe at home: Yes additional social history: Patient works at [employer]- Works at [employer] History 4 Elective abortions Hx Para 2 Spontaneous abortions 1 Hx # Term Pregnancies 2 Ectopic pregnancies Hx # Pregnancies Multiple births # of living children 2 Past Pregnancies Del. Date Name GA/Weeks Outcome Route Bth Weight Infant Gen Labor Lgth Anesthesia Del Locatn Provider FOB 07/20/20 Andre 37 live - full term vacuum 8# 11oz Male [facility] Myke ellison 08/20/23 Radames Elizondo 38 live - full term 7lbs 8oz Male [facility] SM Delivery Date: 07/20/20 Last Updated [...] ?-???-???-???-???-???-? ??- (more content not included)... Normal [facility] - Chemistry and C hemistry - challengeOrdered By: Fadumo Zelaya on 08-01-2024 Glucose Ql (U) Negative [facility] - UrinalysisOrder ed By: Fadumo Zelaya on 08-01-2024 Protein Ql (U) Negative [facility] [employer] Office Visit Reporton 08-01-2024 [employer] Office Visit Report [facility] [address], [address] [place] [address] OFFICE VISIT Date of Service: 08/01/24 MR#: [id number] Acct: [id number] Name: AZAEL SULTANA Rep #: [id number] : 2000 Provider: Dr. Fadumo smith MD Age/Sex: 23/F [place] [facility] [place]: [place] Intake Vital Signs 03/11/24 08:55 [...] mg-folate no.1 1 mg-dha 300 mg capsule (PNV-[place]) ondansetron 4 mg disintegrating 4 mg PO [...] current occupational status: employed current occupation: [employer] current occupational exposures/hazards: No pets and [...] physical activity do you participate in: none matt/restoration: None seatbelt use: always do you feel safe at home: Yes additional social history: Patient works at [employer]- Works at [employer] History 4 Elective abortions Hx Para 2 Spontaneous abortions 1 Hx # Term Pregnancies 2 Ectopic pregnancies Hx # Pregnancies Multiple births # of living children 2 Past Pregnancies Del. Date Name GA/Weeks Outcome Route Bth Weight Gen Labor Lgth Anesthesia Del Locatn Provider FOB 07/20/20 Andre 37 live - full term vacuum 8# 11oz Male [facility] Myke ellison 08/20/23 Radames Elizondo 38 live - full term 7lbs 8oz Male [facility] SM Delivery Date: 07/20/20 Last Updated [...] weeks 01 (more content not included)... Normal [facility] HEP B SURFACE AB, QUANT [CCL ]on 07-22-2024 HepB Surface Ab,Qual Negative Normal [facility] Comment on above: Result Comment: No s erological evidence of immunity to Hepatitis B Virus. Performed By: #### 2 [id number] #### [facility],[address] [place] [address] HepB SurfaceAb,Quant <8.00 Normal [facility] Comment on above: Result Comment: <8 m IU/mL: No serological evidence of immunity to Hepatitis B Virus. >/= 8 to <12 mIU/mL: No serological evidence of immunity to Hepatitis B Virus. >/= 12 mIU/mL: Consistent with serological evidence of immunity to Hepatitis B Virus. [facility] [employer] [facility] [place] [id number] Ruben Stephenson III, M.D. [id number] Performed By: #### 2 85248 #### [address] [address] MEASLES IGG ANTIBODY [CCL]on 07-22-2024 Measles IgG, Qual Positive Normal Positive [facility] Comment on above: Result Comment: The result suggests recent or past exposure to Measles virus or Measles vaccination. The current test does not detect neutralizing antibodies. Positive result may also be seen due to presence of passively-transferred antibodies. Please correlate with patient's history. [facility] [employer] [facility] [place] [address] Ruben Stephenson III, M.D. [id number] Performed By: #### 2 04083 #### [address] [address] MUMPS IGG AB [CCL]on 025 Mumps IgG, Qual Positive Normal Positive [facility] Comment on above: Result Comment: The result suggests recent or past exposure to Mumps virus or Mumps vaccination. The current test does not detect neutralizing antibodies. Positive result may also be seen due to presence of passively-transferred antibodies. Please correlate with patient's history. [facility] [employer] [facility] [place] [address] Ruben Stephenson III, M.D. [id number] Performed By: #### 2 09696 #### [address] [address] RUBELLA IgG ANTIBODY [CCL]on 07-22-2024 Rubella IgG Ab, Qual Positive Normal Positive [facility] Comment on above: Result Comment: The result suggests recent or past exposure to Rubella virus or history of Rubella vaccination. Positive result may also be seen due to presence of passively-transferred antibodies. Please correlate with patient's history. [facility] [employer] [address] [place] [address] Ruben Stephenson III, M.D. [id number] Performed By: #### 2 48541 #### [facility],[address] [place] [address] VARICELLA ZOSTER IGG AB [CCL ]on 07-22-2024 V. zoster IgG, Qual Positive Normal Positive [facility] Comment on above: Result Comment: The result suggests recent or past exposure to Varicella-Zoster virus or chickenpox vaccination or zoster vaccination. Positive result may also be seen due to presence of passively-transferred antibodies. Please correlate with patient's history. [facility] [employer] [address] [place] [address] Ruben Stephenson III, M.D. [id number] Performed By: #### 2 21278 #### [facility],[address] [place] [address] Absolute lymphocyte countOrd ered By: Marietta Ghosh on 07-21-2024 Lymphocytes Auto (Unsp spec) [#/Vol] 1.97 10*3/uL 0.83-4.51 [facility] Absolute neutrophil countOrd ered By: Marietta Ghosh on 07-21-2024 Neutrophils (Bld) [#/Vol] 6.5 10*3/uL 2.0-7.7 [facility] Albumin to globulin ratioOrd ered By: Marietta Ghosh on 07-21-2024 Albumin/Globulin [Mass ratio] 0.7 {ratio} Low 0.9-2.4 [facility] Automated lymphocyte count a s percentage of total leukocytesOrdered By: Marietta Ghosh on 07-21-2024 Lymphocytes/100 WBC Auto (Unsp spec) 21.8 % 19-41 [facility] Basophil percentageOrdered B y: Marietta Ghosh on 07-21-2024 Basophils/100 WBC (Bld) 0.3 % 0-1 [facility] Bilirubin, totalOrdered By: Marietta Ghosh on 07-21-2024 Bilirubin [Mass/Vol] 0.10 mg/dL Low 0.20-1.00 [facility] Comment on above: For patients on eltr ombopag therapy, use of Dimension [place]comb TBIL is not recommended. Blood urea nitrogen (BUN)/cr eatinine ratioOrdered By: Marietta Ghosh on 07-21-2024 Urea nitrogen/Creatinine [Mass ratio] 15.8 mg/mg 04-20 [facility] CBC W/Diff, Automatedon 07-03 Absolute Lymph 1.97 X10 3/uL Normal 0.83-4.51 [facility] Comment on above: Performed By: #### L 509.8000, BTS, L3890.6300, L500.4050, L3890.6100, L100.0100, L501.9985, L900.0098, L505.5000, L509.4005, L3890.6005 ####[facility] [address] [place], [place], [phone] Absolute Neut 6.5 X10 3/uL Normal 2.0-7.7 [facility] Comment on above: Performed By: #### L 509.8000, BTS, L3890.6300, L500.4050, L3890.6100, L100.0100, L501.9985, L900.0098, L505.5000, L509.4005, L3890.6005 ####[facility] [address] [place], [place], [id number] Basophils/100 WBC (Bld) 0.3 % Normal 0-1 [facility] Comment on above: Performed By: #### L 509.8000, BTS, L3890.6300, L500.4050, L3890.6100, L100.0100, L501.9985, L900.0098, L505.5000, L509.4005, L3890.6005 ####[facility] [address] [place], [address] Eosinophils/100 WBC (Bld) 0.9 % Normal 0-5 [facility] Comment on above: Performed By: #### L 509.8000, BTS, L3890.6300, L500.4050, L3890.6100, L100.0100, L501.9985, L900.0098, L505.5000, L509.4005, L3890.6005 ####[facility] [address] [place], [address] Erythrocyte distribution width (RBC) [Ratio] 15.9 % High 11.6-14.6 [facility] Comment on above: Performed By: #### L 509.8000, BTS, L3890.6300, L500.4050, L3890.6100, L100.0100, L501.9985, L900.0098, L505.5000, L509.4005, L3890.6005 ####[facility] [address] [place], [place], [phone] Hematocrit (Bld) [Volume fraction] 35.2 % Low 37-47 [facility] Comment on above: Performed By: #### L 509.8000, BTS, L3890.6300, L500.4050, L3890.6100, L100.0100, L501.9985, L900.0098, L505.5000, L509.4005, L3890.6005 ####[facility] [address] [place], [address] Hemoglobin (Bld) [Mass/Vol] 11.4 g/dL Low 12.0-15.0 [facility] Comment on above: Performed By: #### L 509.8000, BTS, L3890.6300, L500.4050, L3890.6100, L100.0100, L501.9985, L900.0098, L505.5000, L509.4005, L3890.6005 ####[facility] [address] [place], [address] IG% 0.400 Normal 0.0-0.9 [facility] Comment on above: Result Comment: IG% - Immature Granulocytes (promyelocytes, myelocytes and metamyelocytes) > 1% indicates that a LEFT SHIFT is Present. Performed By: #### L 509.8000, BTS, L3890.6300, L500.4050, L3890.6100, L100.0100, L501.9985, L900.0098, L505.5000, L509.4005, L3890.6005 ####[facility] [address] [place], [address] Lymphocytes/100 WBC (Bld) 21.8 % Normal 19-41 [facility] Comment on above: Performed By: #### L 509.8000, BTS, L3890.6300, L500.4050, L3890.6100, L100.0100, L501.9985, L900.0098, L505.5000, L509.4005, L3890.6005 ####[facility] [address] [place], [address] MCH (RBC) [Entitic mass] 28.6 pg Normal 27.0-32.0 [facility] Comment on above: Performed By: #### L 509.8000, BTS, L3890.6300, L500.4050, L3890.6100, L100.0100, L501.9985, L900.0098, L505.5000, L509.4005, L3890.6005 ####[facility] [address] [place], [address] MCHC (RBC) [Mass/Vol] 32.4 g/dL Normal 32-36 [facility] Comment on above: Performed By: #### L 509.8000, BTS, L3890.6300, L500.4050, L3890.6100, L100.0100, L501.9985, L900.0098, L505.5000, L509.4005, L3890.6005 ####[facility] [address] [place], [address] MCV (RBC) [Entitic vol] 88.4 fL Normal 81-99 [facility] Comment on above: Performed By: #### L 509.8000, BTS, L3890.6300, L500.4050, L3890.6100, L100.0100, L501.9985, L900.0098, L505.5000, L509.4005, L3890.6005 ####[facility] [address] [place], [address] Monocytes/100 WBC (Bld) 5.0 % Normal 0-10 [facility] Comment on above: Performed By: #### L 509.8000, BTS, L3890.6300, L500.4050, L3890.6100, L100.0100, L501.9985, L900.0098, L505.5000, L509.4005, L3890.6005 ####[facility] [address] [place], [address] Neutrophils/100 WBC (Bld) 71.6 % High 47-70 [facility] Comment on above: Performed By: #### L 509.8000, BTS, L3890.6300, L500.4050, L3890.6100, L100.0100, L501.9985, L900.0098, L505.5000, L509.4005, L3890.6005 ####[facility] [address] [place], [address] Nucleated RBC (Bld) [#/Vol] 0 10*3/uL Normal 0-5 [facility] Comment on above: Performed By: #### L 509.8000, BTS, L3890.6300, L500.4050, L3890.6100, L100.0100, L501.9985, L900.0098, L505.5000, L509.4005, L3890.6005 ####[facility] [address] [place], [address](754) Platelet mean volume (Bld) [Entitic vol] 10.2 fL Normal 6.2-12.0 [facility] Comment on above: Performed By: #### L 509.8000, BTS, L3890.6300, L500.4050, L3890.6100, L100.0100, L501.9985, L900.0098, L505.5000, L509.4005, L3890.6005 ####[facility] [address] [place], [address](885) Platelets (Bld) [#/Vol] 329 10*3/uL Normal 150-450 [facility] Comment on above: Performed By: #### L 509.8000, BTS, L3890.6300, L500.4050, L3890.6100, L100.0100, L501.9985, L900.0098, L505.5000, L509.4005, L3890.6005 ####[facility] [address] [place], [address](595) RBC (Bld) [#/Vol] 3.98 10*6/uL Low 4.2-5.4 [facility] Comment on above: Performed By: #### L 509.8000, BTS, L3890.6300, L500.4050, L3890.6100, L100.0100, L501.9985, L900.0098, L505.5000, L509.4005, L3890.6005 ####[facility] [address] [place], [address](780) RDW SD 52.0 fl High 35.1-43.9 [facility] Comment on above: Performed By: #### L 509.8000, BTS, L3890.6300, L500.4050, L3890.6100, L100.0100, L501.9985, L900.0098, L505.5000, L509.4005, L3890.6005 ####[facility] [address] [place], [address] WBC (Bld) [#/Vol] 9.0 10*3/uL Normal 4.4-11.0 [facility] Comment on above: Performed By: #### L 509.8000, BTS, L3890.6300, L500.4050, L3890.6100, L100.0100, L501.9985, L900.0098, L505.5000, L509.4005, L3890.6005 ####[facility] [address] [place], [address] Carbon dioxide measurementOr dered By: Marietta Ghosh on 07-21-2024 CO2 [Moles/Vol] 24.0 mmol/L 21.0-32.0 [facility] Chloride measurementOrdered By: Marietta Ghosh on 07-21-2024 Chloride [Moles/Vol] 106 mmol/L 98-107 [facility] Comprehensive Metabolic Prof ilon 07-21-2024 Albumin [Mass/Vol] 2.8 g/dL Low 3.2-5.0 [facility] Comment on above: Order Comment: NIPT with Gender Performed By: #### L 509.8000, BTS, L3890.6300, L500.4050, L3890.6100, L100.0100, L501.9985, L900.0098, L505.5000, L509.4005, L3890.6005 ####[facility] [address] [place], [place], [phone] Albumin/Globulin [Mass ratio] 0.7 {ratio} Low 0.9-2.4 [facility] Comment on above: Order Comment: NIPT with Gender Performed By: #### L 509.8000, BTS, L3890.6300, L500.4050, L3890.6100, L100.0100, L501.9985, L900.0098, L505.5000, L509.4005, L3890.6005 ####[facility] [address] [place], [place], [phone] ALK P 82 U/L Normal 45-117 [facility] Comment on above: Order Comment: NIPT with Gender Performed By: #### L 509.8000, BTS, L3890.6300, L500.4050, L3890.6100, L100.0100, L501.9985, L900.0098, L505.5000, L509.4005, L3890.6005 ####[facility] [address] [place], [place], [phone] ALT [Catalytic activity/Vol] 11 U/L Low 13-56 [facility] Comment on above: Order Comment: NIPT with Gender Performed By: #### L 509.8000, BTS, L3890.6300, L500.4050, L3890.6100, L100.0100, L501.9985, L900.0098, L505.5000, L509.4005, L3890.6005 ####[facility] [address] [place], [place], [phone] AST [Catalytic activity/Vol] 8 U/L Low 15-37 [facility] Comment on above: Order Comment: NIPT with Gender Performed By: #### L 509.8000, BTS, L3890.6300, L500.4050, L3890.6100, L100.0100, L501.9985, L900.0098, L505.5000, L509.4005, L3890.6005 ####[facility] [address] [place], [address] Bilirubin [Mass/Vol] 0.10 mg/dL Low 0.20-1.00 [facility] Comment on above: Order Comment: NIPT with Gender Result Comment: For patients on eltrombopag therapy, use of Dimension Newcomb TBIL is not recommended. Performed By: #### L 509.8000, BTS, L3890.6300, L500.4050, L3890.6100, L100.0100, L501.9985, L900.0098, L505.5000, L509.4005, L3890.6005 ####[facility] [address] [place], [place], [phone](247) BUN/CRE 15.8 RATIO Normal 10-20 [facility] Comment on above: Order Comment: NIPT with Gender Performed By: #### L 509.8000, BTS, L3890.6300, L500.4050, L3890.6100, L100.0100, L501.9985, L900.0098, L505.5000, L509.4005, L3890.6005 ####[facility] [address] [place], [place], [phone] CA,Total 9.0 mg/dL Normal 8.5-10.1 [facility] Comment on above: Order Comment: NIPT with Gender Performed By: #### L 509.8000, BTS, L3890.6300, L500.4050, L3890.6100, L100.0100, L501.9985, L900.0098, L505.5000, L509.4005, L3890.6005 ####[facility] [address] [place], [place], [phone] Chloride [Moles/Vol] 106 mmol/L Normal 98-107 [facility] Comment on above: Order Comment: NIPT with Gender Performed By: #### L 509.8000, BTS, L3890.6300, L500.4050, L3890.6100, L100.0100, L501.9985, L900.0098, L505.5000, L509.4005, L3890.6005 ####[facility] [address] [place], [address] CO2 [Moles/Vol] 24.0 mmol/L Normal 21.0-32.0 [facility] Comment on above: Order Comment: NIPT with Gender Performed By: #### L 509.8000, BTS, L3890.6300, L500.4050, L3890.6100, L100.0100, L501.9985, L900.0098, L505.5000, L509.4005, L3890.6005 ####[facility] [address] [place], [address] Creatinine [Mass/Vol] 0.50 mg/dL Low 0.55-1.02 [facility] Comment on above: Order Comment: NIPT with Gender Result Comment: The validity of the calculated GFR GFRAA in patients over 70 years has not been determined. Clinical correlation is essential. Performed By: #### L 509.8000, BTS, L3890.6300, L500.4050, L3890.6100, L100.0100, L501.9985, L900.0098, L505.5000, L509.4005, L3890.6005 ####[facility] [address] [place], [address] EST GFR - AA 193 mL/min Normal >60 [facility] Comment on above: Order Comment: NIPT with Gender Result Comment: Afri can Scottish GFR Calc Performed By: #### L 509.8000, BTS, L3890.6300, L500.4050, L3890.6100, L100.0100, L501.9985, L900.0098, L505.5000, L509.4005, L3890.6005 ####[facility] [address] [place], [address] GAP 5 Normal 5-15 [facility] Comment on above: Order Comment: NIPT with Gender Performed By: #### L 509.8000, BTS, L3890.6300, L500.4050, L3890.6100, L100.0100, L501.9985, L900.0098, L505.5000, L509.4005, L3890.6005 ####[facility] [address] [place], [place], [phone](440) GFR/1.73 sq M.predicted among non-blacks MDRD (S/P/Bld) [Vol rate/Area] 160 mL/min/{1.73_m2} Normal >60 [facility] Comment on above: Order Comment: NIPT with Gender Result Comment: Non- GFR Calc Performed By: #### L 509.8000, BTS, L3890.6300, L500.4050, L3890.6100, L100.0100, L501.9985, L900.0098, L505.5000, L509.4005, L3890.6005 ####[facility] [address] [place], [address] Globulin (S) [Mass/Vol] 3.9 g/dL Normal 2.2-4.2 [facility] Comment on above: Order Comment: NIPT with Gender Performed By: #### L 509.8000, BTS, L3890.6300, L500.4050, L3890.6100, L100.0100, L501.9985, L900.0098, L505.5000, L509.4005, L3890.6005 ####[facility] [address] [place], [place], [phone](205) Glucose [Mass/Vol] 138 mg/dL High 74-106 [facility] Comment on above: Order Comment: NIPT with Gender Result Comment: Fast ing Glucose result greater than or equal to 126 mg/dL suggests DIABETES MELLITUS per A.D.A. criteria. Performed By: #### L 509.8000, BTS, L3890.6300, L500.4050, L3890.6100, L100.0100, L501.9985, L900.0098, L505.5000, L509.4005, L3890.6005 ####[facility] [address] [place], [address] Potassium [Moles/Vol] 3.6 mmol/L Normal 3.5-5.1 [facility] Comment on above: Order Comment: NIPT with Gender Performed By: #### L 509.8000, BTS, L3890.6300, L500.4050, L3890.6100, L100.0100, L501.9985, L900.0098, L505.5000, L509.4005, L3890.6005 ####[facility] [address] [place], [address] Sodium [Moles/Vol] 135 mmol/L Low 136-145 [facility] Comment on above: Order Comment: NIPT with Gender Performed By: #### L 509.8000, BTS, L3890.6300, L500.4050, L3890.6100, L100.0100, L501.9985, L900.0098, L505.5000, L509.4005, L3890.6005 ####[facility] [address] [place], [address] T PROT 6.7 g/dL Normal 6.4-8.2 [facility] Comment on above: Order Comment: NIPT with Gender Performed By: #### L 509.8000, BTS, L3890.6300, L500.4050, L3890.6100, L100.0100, L501.9985, L900.0098, L505.5000, L509.4005, L3890.6005 ####[facility] [address] [place], [address] Urea nitrogen [Mass/Vol] 8 mg/dL Normal 7-18 [facility] Comment on above: Order Comment: NIPT with Gender Performed By: #### L 509.8000, BTS, L3890.6300, L500.4050, L3890.6100, L100.0100, L501.9985, L900.0098, L505.5000, L509.4005, L3890.6005 ####[facility] [address] [place], [place], [phone] Eosinophil percentageOrdered By: Marietta Ghosh on 07-21-2024 Eosinophils/100 WBC (Bld) 0.9 % 0-5 [facility] Erythrocyte distribution wid th ratioOrdered By: Marietta Ghosh on 07-21-2024 Erythrocyte distribution width (RBC) [Ratio] 15.9 % High 11.6-14.6 [facility] Erythrocyte distribution wid th standard deviationOrdered By: Marietta Ghosh on 07-21-2024 Erythrocyte distribution width (RBC) [Ratio] 52.0 fl High 35.1-43.9 [facility] Gestational diabetes screen 1-hour screen with 50g oral glucose loadOrdered By: Marietta Ghosh on 07-21-2024 Glucose 1 Hr post 50 g glucose PO [Mass/Vol] 130 mg/dL 70-140 [facility] Glomerular filtration rate ( GFR) estimationOrdered By: Marietta Ghosh on 07-21-2024 GFR/1.73 sq M.predicted among non-blacks MDRD (S/P/Bld) [Vol rate/Area] 160 mL/min/{1.73_m2} >60 [facility] Comment on above: Non- GFR Calc Glucose Challenge Gest 1H 50 qi 07-21-2024 GLU GEST 50g 1H 130 mg/dL Normal 70-140 [facility] Comment on above: Performed By: #### L 501.0250, L501.0900 #### [facility] [address] [place], [place], [phone] Glucose measurementOrdered B y: Marietta Ghosh on 07-21-2024 Glucose [Mass/Vol] 138 mg/dL High 74-106 [facility] Comment on above: Fasting Glucose resu lt greater than or equal to 126 mg/dL suggests DIABETES MELLITUS per A.D.A. criteria. HIV - WCHon 07-21-2024 HIV Non-Reactive Normal Nonreactive [facility] Comment on above: Order Comment: Gartho n for Exam: Performed By: #### L 509.8000, BTS, L3890.6300, L500.4050, L3890.6100, L100.0100, L501.9985, L900.0098, L505.5000, L509.4005, L3890.6005 ####[facility] [address] [place], [place], [phone] HIV 1 and HIV-2 antibody ass ay with HIV-1 p24 antigen detectionOrdered By: Marietta Ghosh on 07-21-2024 HIV 1+2 Ab+HIV1 p24 Ag IA Ql Non-Reactive Nonreactive [facility] Hematocrit Auto (Bld) [Volum e fraction]Ordered By: Marietta Ghosh on 07-21-2024 Hematocrit (Bld) [Volume fraction] 35.2 % Low 37-47 [facility] Hemoglobin A1con 07-21-2024 HbA1c (Bld) [Mass fraction] 5.5 % Normal 3.8-5.6 [facility] Comment on above: Result Comment: Norm al < 5.7 % Prediabetic 5.7 - 6.4 % Diabetic >or= 6.5 % Please note range changes. Performed By: #### L 509.8000, BTS, L3890.6300, L500.4050, L3890.6100, L100.0100, L501.9985, L900.0098, L505.5000, L509.4005, L3890.6005 ####[facility] [address] [place], [place], [phone] Hemoglobin A1c percentageOrd ered By: Marietta Ghosh on 07-21-2024 HbA1c (Bld) [Mass fraction] 5.5 % 3.8-5.6 [facility] Comment on above: Normal < 5.7 % Predi abetic 5.7 - 6.4 % Diabetic >or= 6.5 % Please note range changes. Hemoglobin measurementOrdere d By: Marietta Ghosh on 07-21-2024 Hemoglobin (Bld) [Mass/Vol] 11.4 g/dL Low 12.0-15.0 [facility] Hepatitis B Surface Antigeno n 07-21-2024 HEP B Surf Ag Non-Reactive Normal Nonreactive [facility] Comment on above: Order Comment: Reaso n for Exam: Performed By: #### L 509.8000, BTS, L3890.6300, L500.4050, L3890.6100, L100.0100, L501.9985, L900.0098, L505.5000, L509.4005, L3890.6005 ####[facility] [id number] [place], [address] Hepatitis C Antibodyon 07-21 Hepatitis C AB Non-Reactive Normal Nonreactive [facility] Comment on above: Order Comment: Reaso n for Exam: Result Comment: Non Reactive: < 0.8 Equivocal: >/= 0.8 to < 1.0 Reactive: >/= 1.0 The CDC requires that a reactive/equivocal HCV antibody result be sent out for confirmation. HCV Quant by PCR testing. Performed By: #### L 509.8000, BTS, L3890.6300, L500.4050, L3890.6100, L100.0100, L501.9985, L900.0098, L505.5000, L509.4005, L3890.6005 ####[facility] [address] [place], [address] Immature granulocytes/100 WB C Auto (Bld)Ordered By: Marietta Ghosh on 07-21-2024 Immature granulocytes/100 WBC (Bld) 0.400 % 0.0-0.9 [facility] Comment on above: IG% - Immature Granu locytes (promyelocytes, myelocytes and metamyelocytes) > 1% indicates that a LEFT SHIFT is Present. L509.8000on 07-21-2024 Syphilis Abs Non-Reactive Normal [facility] Comment on above: Order Comment: Reaso n for Exam: Performed By: #### L 509.8000, BTS, L3890.6300, L500.4050, L3890.6100, L100.0100, L501.9985, L900.0098, L505.5000, L509.4005, L3890.6005 ####[facility] [address] [place], [place], [id number] Laboratory - Chemistry and C hemistry - challengeOrdered By: Marietta Ghosh on 07-21-2024 AST [Catalytic activity/Vol] 8 U/L Low 15-37 [facility] MCV (mean corpuscular volume ) determinationOrdered By: Marietta Ghosh on 07-21-2024 MCV (RBC) [Entitic vol] 88.4 fL 81-99 [facility] Mean corpuscular hemoglobin (MCH) determinationOrdered By: Marietta Ghosh on 07-21-2024 MCH (RBC) [Entitic mass] 28.6 pg 27.0-32.0 [facility] Mean corpuscular hemoglobin concentration (MCHC) determinationOrdered By: Marietta Ghosh on 07-21-2024 MCHC (RBC) [Mass/Vol] 32.4 g/dL 32-36 [facility] Mean platelet volume determi nationOrdered By: Marietta Ghosh on 07-21-2024 Platelet mean volume (Bld) [Entitic vol] 10.2 fL 6.2-12.0 [facility] Monocyte percentageOrdered B y: Marietta Ghosh on 07-21-2024 Monocytes/100 WBC (Bld) 5.0 % 0-10 [facility] NATERAon 07-21-2024 NATURA SEE SCANNED REPORT Normal [facility] Comment on above: Order Comment: Comme nts: NIPT with Gender Performed By: #### L 509.8000, BTS, L3890.6300, L500.4050, L3890.6100, L100.0100, L501.9985, L900.0098, L505.5000, L509.4005, L3890.6005 ####[facility] [address] [place], [place], [id number] Neutrophil percentageOrdered By: Marietta Ghosh on 07-21-2024 Neutrophils/100 WBC (Bld) 71.6 % High 47-70 [facility] No Panel InformationOrdered By: Marietta Ghosh on 07-21-2024 Urine Drug Screen Comment [facility] Comment on above: CONFIRMATORY TESTING FOR ALL [...] RBC/100 WBC (Bld) [Ratio] 0 % 0-5 [facility] Platelet countOrdered By: Jovan Ghosh on 07-21-2024 Platelets (Bld) [#/Vol] 329 10*3/uL 150-450 [facility] Potassium measurementOrdered By: Marietta Ghosh on 07-21-2024 Potassium [Moles/Vol] 3.6 mmol/L 3.5-5.1 [facility] Protein+Creatinine Ratio,Uri neon 07-21-2024 PROT:CRE RATIO 98 mg/g CRE Normal 0-200 [facility] Comment on above: Performed By: #### L 501.0250, L501.0900 #### [facility] [address] [place], [place], [address] UR CREAT 131.00 mg/dL Normal NO RANGE EST. [facility] Comment on above: Performed By: #### L 501.0250, L501.0900 #### [facility] [address] [place], [address] Quantitative urine opiates m easurementOrdered By: Marietta Ghosh on 07-21-2024 Opiates Ql (U) Negative < 300 ng/mL [facility] RBC Auto (Bld) [#/Vol]Ordere d By: Marietta Ghosh on 07-21-2024 RBC (Bld) [#/Vol] 3.98 10*6/uL Low 4.2-5.4 [facility] Random urine protein measure mentOrdered By: Marietta Ghosh on 07-21-2024 Protein (U) [Mass/Vol] 12.9 mg/dL High <11.9 [facility] Comment on above: Performed By: #### L 501.0250, L501.0900 #### [facility] [address] [place], [address] Rubella IgGon 07-21-2024 Rubella IgG Reactive Normal Nonreactive [facility] Comment on above: Order Comment: Reaso n for Exam: Result Comment: Anti body Results Interpretation of Immune Status Non Reactive Presumed Non-Immune Equivocal Equivocal Reactive Presumed Immune Performed By: #### L 509.8000, BTS, L3890.6300, L500.4050, L3890.6100, L100.0100, L501.9985, L900.0098, L505.5000, L509.4005, L3890.6005 ####[facility] [address] [place], [address] Serum Treponema species anti body detectionOrdered By: Marietta Ghosh on 07-21-2024 Treponema sp Ab Ql (S) Non-Reactive [facility] Serum anion gap measurementO rdered By: Marietta Ghosh on 07-21-2024 Anion gap [Moles/Vol] 5 mmol/L 5-15 [facility] Serum globulin measurementOr dered By: Marietta Ghosh on 07-21-2024 Globulin (S) [Mass/Vol] 3.9 g/dL 2.2-4.2 [facility] Serum or plasma alanine purdy otransferase (ALT) measurementOrdered By: Marietta Ghosh on 07-21-2024 ALT [Catalytic activity/Vol] 11 U/L Low 13-56 [facility] Serum or plasma albumin jose cruz urement (mass/volume)Ordered By: Marietta Ghosh on 07-21-2024 Albumin [Mass/Vol] 2.8 g/dL Low 3.2-5.0 [facility] Serum or plasma alkaline silvio sphatase measurementOrdered By: Marietta Ghosh on 07-21-2024 ALP [Catalytic activity/Vol] 82 U/L 45-117 [facility] Serum or plasma calcium jose cruz urement (mass/volume)Ordered By: Marietta Ghosh on 07-21-2024 Calcium [Mass/Vol] 9.0 mg/dL 8.5-10.1 [facility] Serum or plasma creatinine m easurement (mass/volume)Ordered By: Marietta Ghosh on 07-21-2024 Creatinine [Mass/Vol] 0.50 mg/dL Low 0.55-1.02 [facility] Comment on above: The validity of the calculated GFR & GFRAA in patients over 70 years has not been determined. Clinical correlation is essential. Serum or plasma urea nitroge n measurement (mass/volume)Ordered By: Marietta Ghosh on 07-21-2024 Urea nitrogen [Mass/Vol] 8 mg/dL 7-18 [facility] Sodium levelOrdered By: Grace Ghosh on 07-21-2024 Sodium [Moles/Vol] 135 mmol/L Low 136-145 [facility] Total proteinOrdered By: Arthur Ghosh on 07-21-2024 Protein [Mass/Vol] 6.7 g/dL 6.4-8.2 [facility] Type AND Screenon 07-21-2024 Ab SCREEN GEL Negative Normal [facility] Comment on above: Order Comment: PN Performed By: #### L 509.8000, BTS, L3890.6300, L500.4050, L3890.6100, L100.0100, L501.9985, L900.0098, L505.5000, L509.4005, L3890.6005 ####[facility] [address] [place], [address] Urine Drug Screen (VISTA)on 07-21-2024 AMPHETAMINES Negative Normal <1000 ng/mL [facility] Comment on above: Order Comment: NIPT with Gender UNK Performed By: #### L 509.8000, BTS, L3890.6300, L500.4050, L3890.6100, L100.0100, L501.9985, L900.0098, L505.5000, L509.4005, L3890.6005 #### [facility] [address] [place], [address] BARBITIURATES Negative Normal < 200 ng/mL [facility] Comment on above: Order Comment: NIPT with Gender UNK Performed By: #### L 509.8000, BTS, L3890.6300, L500.4050, L3890.6100, L100.0100, L501.9985, L900.0098, L505.5000, L509.4005, L3890.6005 #### [facility] [address] [place], [address] BENZODIAZIPINE Negative Normal < 200 ng/mL [facility] Comment on above: Order Comment: NIPT with Gender UNK Performed By: #### L 509.8000, BTS, L3890.6300, L500.4050, L3890.6100, L100.0100, L501.9985, L900.0098, L505.5000, L509.4005, L3890.6005 #### [facility] [address] [place], [address] COCAINE Negative Normal < 300 ng/mL [facility] Comment on above: Order Comment: NIPT with Gender UNK Performed By: #### L 509.8000, BTS, L3890.6300, L500.4050, L3890.6100, L100.0100, L501.9985, L900.0098, L505.5000, L509.4005, L3890.6005 #### [facility] [address] [place], [address] ECSTACY Negative Normal < 500 ng/mL [facility] Comment on above: Order Comment: NIPT with Gender UNK Performed By: #### L 509.8000, BTS, L3890.6300, L500.4050, L3890.6100, L100.0100, L501.9985, L900.0098, L505.5000, L509.4005, L3890.6005 #### [facility] [address] [place], [address] METHADONE Negative Normal < 300 ng/mL [facility] Comment on above: Order Comment: NIPT with Gender UNK Performed By: #### L 509.8000, BTS, L3890.6300, L500.4050, L3890.6100, L100.0100, L501.9985, L900.0098, L505.5000, L509.4005, L3890.6005 #### [facility] [address] [place], [address] OPIATES Negative Normal < 300 ng/mL [facility] Comment on above: Order Comment: NIPT with Gender UNK Performed By: #### L 509.8000, BTS, L3890.6300, L500.4050, L3890.6100, L100.0100, L501.9985, L900.0098, L505.5000, L509.4005, L3890.6005 #### [facility] [address] [place], [address] PCP Negative Normal < 25 ng/mL [facility] Comment on above: Order Comment: NIPT with Gender UNK Performed By: #### L 509.8000, BTS, L3890.6300, L500.4050, L3890.6100, L100.0100, L501.9985, L900.0098, L505.5000, L509.4005, L3890.6005 #### [facility] [address] [facility], [address] THC Positive Abnormal < 50 ng/mL [facility] Comment on above: Order Comment: NIPT with Gender UNK Performed By: #### L 509.8000, BTS, L3890.6300, L500.4050, L3890.6100, L100.0100, L501.9985, L900.0098, L505.5000, L509.4005, L3890.6005 #### [facility] [address] [place], [place], [address] VISTA UDS PH 5 Normal [facility] Comment on above: Order Comment: NIPT with Gender UNK Performed By: #### L 509.8000, BTS, L3890.6300, L500.4050, L3890.6100, L100.0100, L501.9985, L900.0098, L505.5000, L509.4005, L3890.6005 #### [facility] [address] [place], [place], [address] Urine amphetamine measuremen tOrdered By: Marietta Ghosh on 07-21-2024 Amphetamines Ql (U) Negative <1000 ng/mL [facility] Urine benzodiazepine levelOr dered By: Marietta Ghosh on 07-21-2024 Benzodiazepines Ql (U) Negative < 200 ng/mL [facility] Urine cocaine levelOrdered B y: Marietta Ghosh on 07-21-2024 Cocaine Ql (U) Negative < 300 ng/mL [facility] Urine creatinine measurement (mass/volume)Ordered By: Marietta Ghosh on 07-21-2024 Creatinine (U) [Mass/Vol] 131.00 mg/dL NO RANGE EST. [facility] Urine leqkg-1-hiinwjrsfabdnt abinol (THC) measurementOrdered By: Marietta Ghosh on 07-21-2024 Cannabinoids Screen Ql (U) Positive High < 50 ng/mL [facility] Urine phencyclidine (PCP) de tectionOrdered By: Marietta Ghosh on 07-21-2024 Phencyclidine Ql (U) Negative < 25 ng/mL [facility] Urine protein/creatinine mas s ratioOrdered By: Marietta Ghosh on 07-21-2024 Protein/Creatinine (U) [Mass ratio] 98 mg/g CRE 0-200 [facility] White blood cell (WBC) count Ordered By: Marietta Ghosh on 07-21-2024 WBC (Bld) [#/Vol] 9.0 10*3/uL 4.4-11.0 [facility] Chlamydia/GC AMBER aptimaon CHLAMY,NUC ACID Negative Normal Negative [facility] Comment on above: Performed By: #### M 100.3400 #### [facility] [address] [place], [place], [address] GC BY NUC ACID Negative Normal Negative [facility] Comment on above: Result Comment: Perf ormed at: =G - [facility] [address] [id number] [place] Operator: Cely Funk MD, Phone: [phone] Performed By: #### M 100.3400 #### [facility] [address] [place], [place], [address] Urine Cultureon 07-05-2024 [facility] Mixed Gram Pos Gram Neg Org [place] Count 80,000-100,000 MIX[facility] Mixed contaminants. Submit a new specimen if indicated. Normal [facility] Comment on above: Performed By: #### M 100.3400 #### [facility] [address] 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 Helper Office Visit Report [facility] [address], [address] [place] [address] OFFICE VISIT Date of Service: 07/03/24 MR#: [id number] Acct: [id number] Name: KAYYAZAELYE Rep #: [id number] : 2000 Provider: RACHAEL Gutiérrez ams Age/Sex: 23/F [place] [facility] [place]: Signed Intake Vital Signs 03/11/24 08:55 07/03/24 13:01 Height 5 ft 3 in 5 ft 3 in Weight: 243 lb 247 lb 6 oz BMI 43.0 43.8 BP 136/88 H 127/78 H Blood Pressure Location Lt brachial Position Sitting Pulse 78 Pulse Source Monitor Temp 98.4 F Pulse Oximetry (%) 99 Intake Visit Reasons: NOB LMP 05/02 Chief Complaint: NOB Belt Notcher Required: No Is patient in pain?: No Allergies adhesive tape Allergy (Mild, Verified 07/03/24 13:04) Rash Medications ???Medication ???Instructions ???Recorded ???Confirmed ???Type multivit-min no.71-iron fum 28 300 cap PO DAILY 01/11/23 06/30/24 History mg-folate no.1 1 mg-dha 300 mg capsule (PNV-[place]) ondansetron 4 mg disintegrating 4 mg PO [...] 2 current occupational status: employed current occupation: [employer] current occupational exposures/hazards: No pets and [...] physical activity do you participate in: none matt/restoration: None seatbelt use: always do you feel safe at home: Yes additional social history: Patient works at [employer]- Works at [employer] History 4 Elective abortions Hx Para 2 Spontaneous abortions 1 Hx # Term Pregnancies 2 Ectopic pregnancies Hx # Pregnancies Multiple births # of living children 2 Past Pregnancies Del. Date Name GA/Weeks Outcome Route Bth Weight Gen Labor Lgth Anesthesia Del Locatn Provider FOB 07/20/20 Andre 37 live - full term vacuum 8# 11oz Male [facility] Myke ellison 08/20/23 Radames Elizondo 38 live - full term 7lbs 8oz Male [facility] SM Delivery Date: 07/20/20 Last Updated [...] -???-???-???-???-???-?? ? (more content not included)... Normal [facility] QUANTIFERON TB INCUBATED [CC L]on 06-16-2024 Mitogen minus Nil >10.00 Normal >=0.50 [facility] Comment on above: Performed By: #### 2 33519 #### [facility],[address] [place] [address] TB Gamma Interpretation Infection with M . tuberculosis complex is unlikely. If latent tuberculosis infec Normal [facility] Comment on above: Result Comment: [facility] [address] [place] [address] Ruben Stephenson III, M.D. [id number] Performed By: #### 2 11297 #### [facility],[address] [place], [place] [address] TB NIL 0.00 IU/mL Normal <=8.00 [facility] Comment on above: Performed By: #### 2 30506 #### [facility],[address] [place], [place] [address] TB Result Negative Normal [facility] Comment on above: Performed By: #### 2 41573 #### [facility],[address] [place], [place] [address] TB1 Ag minus Nil 0.00 IU/mL Normal <0.35 [facility] Comment on above: Performed By: #### 2 72323 #### [facility],[address] [place], [place] [address] TB2 Ag minus Nil 0.00 IU/mL Normal <0.35 [facility] Comment on above: Performed By: #### 2 61943 #### [facility],[address] [place] [address] HEP B SURFACE AG [CCL]on Hepatitis B Surf. Ag Negative Normal Negative [facility] Comment on above: Result Comment: [facility] [address] [id number] Ruben Stephenson III, M.D. [id number] Performed By: #### 2 82598 #### [facility],[address] [place] [address] CBC + DIFFon 06-13-2024 Baso # 0.03 x10EE3/UL Normal 0.00 - 0.10 [facility] Comment on above: Performed By: #### 2 99992 #### [facility],[address] [place] [address] Basophils/100 WBC (Bld) 0.3 % Normal 0.0 - 2.0 [facility] Comment on above: Performed By: #### 2 81880 #### [facility],[address] [place] [address]0962 CBC + DIFF Normal [facility] Comment on above: Result Comment: CBC- COMPLETE BLOOD COUNT Performed By: #### 2 20569 #### [facility],[address] [place] [address] 22376 EO # 0.11 x10EE3/UL Normal 0.00 - 0.50 [facility] Comment on above: Performed By: #### 2 99749 #### [facility],[address] [place] [address] 17912 Eosinophils/100 WBC (Bld) 1.1 % Normal 0.0 - 7.0 [facility] Comment on above: Performed By: #### 2 09733 #### [facility],[address] [place] [address]19 Erythrocyte distribution width (RBC) [Ratio] 15.5 % Normal 12.0 - 15.6 [facility] Comment on above: Performed By: #### 2 50445 #### [facility],[address] [place] [address]58 Hematocrit (Bld) [Volume fraction] 42.1 % Normal 34.0 - 46.0 [facility] Comment on above: Performed By: #### 2 21192 #### [facility],[address] [place] [address]176 Hemoglobin (Bld) [Mass/Vol] 13.9 g/dL Normal 12.0 - 16.0 [facility] Comment on above: Performed By: #### 2 70261 #### [facility],[address] [place] [address] Lymph # 2.29 x10EE3/UL Normal 0.80 - 2.80 [facility] Comment on above: Performed By: #### 2 84372 #### [facility],[address] [place], [place] [address] Lymphocytes/100 WBC (Bld) 24.4 % Normal 20.0 - 45.0 [facility] Comment on above: Performed By: #### 2 57897 #### [facility],[address] [place] [address]211 MANUAL DIFF N/A Normal [facility] Comment on above: Performed By: #### 2 72936 #### [facility],[address] [place] [address] 01601 MCH (RBC) [Entitic mass] 28 pg Normal 27 - 33 [facility] Comment on above: Performed By: #### 2 23937 #### [facility],[address] [place] [address]18 MCHC 33 X10 3 Normal 32 - 36 [facility] Comment on above: Performed By: #### 2 60988 #### [facility],[address] [place] [address]189 MCV (RBC) [Entitic vol] 85 fL Normal 80 - 99 [facility] Comment on above: Performed By: #### 2 73244 #### [facility],[address] [place] [address] [place] # 0.48 x10EE3/UL Normal 0.20 - 1.00 [facility] Comment on above: Performed By: #### 2 77318 #### [facility],[address] [place] [address] 21826 MONOS % 5.1 % Normal 0.0 - 10.0 [facility] Comment on above: Performed By: #### 2 40658 #### [facility],[address] [place] [address] 88043 Morphology Armand (Bld) [Interp] N/A Normal [facility] Comment on above: Performed By: #### 2 73655 #### [facility],[address] [place] [address] 20663 Neut # 6.47 x10EE3/UL Normal 1.50 - 7.10 [facility] Comment on above: Performed By: #### 2 76049 #### [facility],[address] [place] [address] 91731 Neutrophils/100 WBC (Bld) 69.0 % Normal 46.0 - 76.0 [facility] Comment on above: Performed By: #### 2 32904 #### [facility],[address] [place] [address] 40198 PLATELET 467 x10EE3/UL High 150 - 450 [facility] Comment on above: Performed By: #### 2 80764 #### [facility],[address] [place] [address] 61530 Platelet mean volume (Bld) [Entitic vol] 8.5 fL Normal 6.6 - 10.5 [facility] Comment on above: Result Comment: AUTO MATED DIFFERENTIAL Performed By: #### 2 56475 #### [facility],[address] [place] [address] 43226 RBC 4.93 x 10EE6/UL Normal 4.10 - 5.30 [facility] Comment on above: Performed By: #### 2 13766 #### [facility],[address] [place] [address] 15127 WBC 9.4 x 10EE3/UL Normal 4.5 - 10.8 [facility] Comment on above: Performed By: #### 2 84428 #### [facility],[address] [place] [address] 83892 CMP with eGFRon 06-13-2024 AGE 23 years Normal [facility] Comment on above: Performed By: #### 2 08660 #### [facility],[address] [place] [address] 37044 Albumin [Mass/Vol] 3.8 g/dL Normal 3.4 - 5.0 [facility] Comment on above: Performed By: #### 2 39089 #### [facility],[address] [place], [place] [address] Albumin/Globulin [Mass ratio] 1.1 {ratio} Normal 0.9 - 1.6 [facility] Comment on above: Performed By: #### 2 00010 #### [facility],[address] [place] [address] 97817 ALK PHOS 133 U/L High 46 - 116 [facility] Comment on above: Performed By: #### 2 19484 #### [facility],[address] [place] [address] 88174 ALT [Catalytic activity/Vol] 7 U/L Low 16 - 63 [facility] Comment on above: Performed By: #### 2 70638 #### [facility],[address] [place] [address] 53168 Anion gap [Moles/Vol] 9 mmol/L Low 10 - 20 [facility] Comment on above: Performed By: #### 2 62331 #### [facility],[address] [place] [address] 49046 AST [Catalytic activity/Vol] 14 U/L Normal 13 - 39 [facility] Comment on above: Performed By: #### 2 65429 #### [facility],[address] [place] [address] 82813 B/C RATIO 15 ratio Normal 0 - 30 [facility] Comment on above: Performed By: #### 2 00710 #### [facility],[address] [place] [address] 32000 Bilirubin [Mass/Vol] 0.4 mg/dL Normal 0.2 - 1.0 [facility] Comment on above: Performed By: #### 2 46224 #### [facility],[address] [place] [address] 42185 Calcium [Mass/Vol] 9.6 mg/dL Normal 8.5 - 10.1 [facility] Comment on above: Performed By: #### 2 19828 #### [facility],[address] [place] [address] 66481 Chloride [Moles/Vol] 99 mmol/L Normal 98 - 107 [facility] Comment on above: Performed By: #### 2 51648 #### [facility],[address] [place] [address] 90328 CMP with eGFR Normal [facility] Comment on above: Result Comment: COMP REHENSIVE METABOLIC PANEL Performed By: #### 2 51479 #### [facility],[address] [place] [address] 53762 CO2 [Moles/Vol] 28.4 mmol/L Normal 21.0 - 32.0 [facility] Comment on above: Performed By: #### 2 30263 #### [facility],[address] [place] [address] 37762 Creatinine [Mass/Vol] 0.73 mg/dL Normal 0.55 - 1.02 [facility] Comment on above: Performed By: #### 2 06683 #### [facility],[address] [place] [address] 38911 GFR/1.73 sq M.predicted among non-blacks MDRD (S/P/Bld) [Vol rate/Area] mL/min/{1.73_m2} Normal 60 - 999 [facility] Comment on above: Performed By: #### 2 [id number] #### [facility],[address] [place], [place] [id number] Result Comment: ACCO RDING TO THE NATIONAL KIDNEY DISEASE EDUCATION PROGRAM(NKDE), A NORMAL eGFR IS A VALUE GREATER THAN OR EQUAL TO 60 ML/MIN/1.73 SQ METERS. CHRONIC KIDNEY DISEASE: <60mL/MIN/1.73 SQ METERS KIDNEY FAILURE: <15mL/MIN/1.73 SQ METERS THIS TEST SHOULD ONLY BE USED FOR PATIENTS 18 YEARS OF AGE AND OLDER. Globulin (S) [Mass/Vol] 3.6 g/dL Normal 1.5 - 3.8 [facility] Comment on above: Performed By: #### 2 [id number] #### [place] [id number] Glucose [Mass/Vol] 128 mg/dL High 74 - 106 [facility] Comment on above: Performed By: #### 2 [id number] #### [address] [address] Potassium [Moles/Vol] 3.9 mmol/L Normal 3.5 - 5.1 [facility] Comment on above: Performed By: #### 2 [id number] #### [address] [address] Protein [Mass/Vol] 7.4 g/dL Normal 6.4 - 8.2 [facility] Comment on above: Performed By: #### 2 [id number] #### [address] [address] Sodium [Moles/Vol] 132 mmol/L Low 136 - 145 [facility] Comment on above: Performed By: #### 2 88624 #### [address] [address] Urea nitrogen [Mass/Vol] 11 mg/dL Normal 7 - 18 [facility] Comment on above: Performed By: #### 2 [id number] #### [facility],[address] [place] [address] LIPID PROFILEon 06-13-2024 Cholesterol [Mass/Vol] 189 mg/dL Normal 0 - 240 [facility] Comment on above: Performed By: #### 2 [id number] #### [facility],[address] [place] [address] Cholesterol in HDL [Mass/Vol] 59 mg/dL Normal 40 - 60 [facility] Comment on above: Performed By: #### 2 [id number] #### [facility],[address] [place] [address] Cholesterol in LDL [Mass/Vol] 111 mg/dL Normal 0 - 129 [facility] Comment on above: Performed By: #### 2 [id number] #### [facility],[address] [place] [address] Cholesterol.total/[place] sterol in HDL [Mass ratio] 3.2 {ratio} Normal 0.0 - 5.0 [facility] Comment on above: Performed By: #### 2 [id number] #### [facility],[address] [place] [address] Lipid 1996 panel Normal [facility] Comment on above: Result Comment: LIPI D PROFILE Performed By: #### 2 [id number] #### [facility],[address] [place] [address] Triglyceride [Mass/Vol] 95 mg/dL Normal 0 - 150 [facility] Comment on above: Performed By: #### 2 13639 #### [facility],[address] [place] [address] Office Visit Reporton 2023 Office Visit Report [facility] [address] [place] [address] OFFICE VISIT Date of Service: 03/11/24 MR#: [id number] Acct: [id number] Patient: AZAEL SULTANA Rep #: [id number] : 2000 Provider: DEANA Burgess Age/Sex: 23/F Location: [facility] Status: Signed Intake Vital Signs 10/10/23 [...] mg-folate no.1 1 mg-dha 300 mg capsule (PNV-[place]) clotrimazole-betamethas one 1 1 applic topical BID [...] 1 current occupational status: employed current occupation: [employer] current occupational exposures/hazards: No pets and [...] 1-2 times per week duration: 30-45 minutes/day matt/restoration: None seatbelt use: always do you feel safe at home: Yes additional social history: Patient works at [employer]- Works at [employer] Female Reproductive History Menstrual Ab spontaneous: 1 [...] with ROM especially overhead reach and abduction. [employer] Operator strength normal. Coding Level of Care Code [...] her. There (more content not included)... Normal [facility] Basophil percentageOrdered B y: Marietta Ghosh on 08-21-2023 Hemoglobin (Bld) [Mass/Vol] 8.8 g/dL 12.0-15.0 [facility] WBC (Bld) [#/Vol] 11.7 10*3/uL 4.4-11.0 [facility] Determination of erythrocyte mean corpuscular volume (MCV)Ordered By: Marietta Ghosh on 08-21-2023 MCV (RBC) [Entitic vol] 87.7 fL 81-99 [facility] Erythrocyte distribution wid th ratioOrdered By: Marietta Ghosh on 08-21-2023 Erythrocyte distribution width (RBC) [Ratio] 14.7 % 11.6-14.6 [facility] Erythrocyte distribution wid th standard deviationOrdered By: Marietta Ghosh on 08-21-2023 Erythrocyte distribution width (RBC) [Entitic vol] 46.5 fL 35.1-43.9 [facility] Hematocrit Auto (Bld) [Volum e fraction]Ordered By: Marietta Ghosh on 08-21-2023 Hematocrit (Bld) [Volume fraction] 27.0 % 37-47 [facility] Laboratory - Hematology and Cell countsOrdered By: Marietta Ghosh on 08-21-2023 MCH (RBC) [Entitic mass] 28.6 pg 27.0-32.0 [facility] MCHC (RBC) [Mass/Vol] 32.6 g/dL 32-36 [facility] Platelet mean volume (Bld) [Entitic vol] 10.7 fL 6.2-12.0 [facility] Platelets (Bld) [#/Vol] 284 10*3/uL 150-450 [facility] RBC Auto (Bld) [#/Vol]Ordere d By: Marietta Ghosh on 08-21-2023 RBC (Bld) [#/Vol] 3.08 10*6/uL 4.2-5.4 [facility] Thin prep Papanicolaou smear with manual screeningOrdered By: Fadumo Zelaya on 08-21-2023 Thin prep Papanicolaou smear with manual screening 80 mg/dL 74-106 [facility] Comment on above: MANAGEMENT OF PATIEN T CARE PER NURSING PROTOCOL Absolute lymphocyte countOrd ered By: Fadumo Zelaya on 08-20-2023 Lymphocytes Auto (Unsp spec) [#/Vol] 2.62 10*3/uL 0.83-4.51 [facility] Automated lymphocyte count a s percentage of total leukocytesOrdered By: Fadumo Zelaya on 08-20-2023 Lymphocytes/100 WBC Auto (Unsp spec) 17.6 % 19-41 [facility] Basophil percentageOrdered B y: Fadumo Zelaya on 08-20-2023 Basophils/100 WBC (Bld) 0.7 % 0-1 [facility] Eosinophils/100 WBC (Bld) 0.7 % 0-5 [facility] Monocytes/100 WBC (Bld) 6.1 % 0-10 [facility] Neutrophils (Bld) [#/Vol] 10.9 10*3/uL 2.0-7.7 [facility] Neutrophils/100 WBC (Bld) 73.2 % 47-70 [facility] Immature granulocytes/100 WB C Auto (Bld)Ordered By: Fadumo Zelaya on 08-20-2023 Immature granulocytes/100 WBC (Bld) 1.700 % 0.0-0.9 [facility] Comment on above: IG% - Immature Granu locytes (promyelocytes, myelocytes and metamyelocytes) > 1% indicates that a LEFT SHIFT is Present. Laboratory - Drug toxicology Ordered By: Fadumo Zelaya on 08-20-2023 Amphetamines Ql (U) Negative <1000 ng/mL [facility] Benzodiazepines Ql (U) Negative < 200 ng/mL [facility] Cannabinoids Screen Ql (U) Positive < 50 ng/mL [facility] Cocaine Ql (U) Negative < 300 ng/mL [facility] Opiates Ql (U) Negative < 300 ng/mL [facility] Laboratory - Hematology and Cell countsOrdered By: Fadumo Zelaya on 08-20-2023 Nucleated RBC/100 WBC (Bld) [Ratio] 0 % 0-5 [facility] No Panel InformationOrdered By: Fadumo Zelaya on 08-20-2023 MDMA (Ecstasy) Screen Negative < 500 ng/mL [facility] Urine Barbiturates Screen Negative < 200 ng/mL [facility] Urine Drug Screen Comment [facility] Comment on above: CONFIRMATORY TESTING FOR ALL [...] Methadone Screen Negative < 300 ng/mL [facility] Serum Treponema species anti body detectionOrdered By: Fadumo Zelaya on 08-20-2023 Treponema sp Ab Ql (S) Non-Reactive [facility] Urine phencyclidine (PCP) de tectionOrdered By: Fadumo Zelaya on 08-20-2023 Phencyclidine Ql (U) Negative < 25 ng/mL [facility] Laboratory - Chemistry and C hemistry - challengeon 08-14-2023 Glucose Ql (U) Negative [facility] Laboratory - Urinalysison Protein Ql (U) Negative [facility] Laboratory - Chemistry and C hemistry - challengeon 08-10-2023 Glucose Ql (U) Negative [facility] Laboratory - Urinalysison Protein Ql (U) Negative [facility] Laboratory - Chemistry and C hemistry - challengeon 08-07-2023 Glucose Ql (U) Negative [facility] Laboratory - Urinalysison Protein Ql (U) Negative [facility] Neisseria gonorrhoeae genita l PCROrdered By: Marietta Ghosh on 08-07-2023 N. gonorrhoeae DNA AMBER+probe Ql (Genital specimen) [facility] No Panel InformationOrdered By: Marietta Ghosh on 08-07-2023 Chlamydia trachomatis (PCR) [facility] Laboratory - Chemistry and C hemistry - challengeon 08-03-2023 Glucose Ql (U) Negative [facility] Laboratory - Urinalysison Protein Ql (U) Negative [facility] No Panel InformationOrdered By: Marietta Ghosh on 08-03-2023 Group B Streptococcus Culture Group B Beta Streptococcus is not isolated. [facility] Specimen Comment (Misc) Not Reportable [facility] Thin prep Papanicolaou smear with manual screeningOrdered By: Marietta Ghosh on 08-03-2023 Thin prep Papanicolaou smear with manual screening Negative Negative [facility] Laboratory - Chemistry and C hemistry - challengeon 07-31-2023 Glucose Ql (U) Negative [facility] Laboratory - Urinalysison Protein Ql (U) Negative [facility] Laboratory - Chemistry and C hemistry - challengeon 07-27-2023 Glucose Ql (U) Negative [facility] Laboratory - Urinalysison Protein Ql (U) Negative [facility] No Panel InformationOrdered By: Evelin Porter on 07-25-2023 Vaginal Amniotic Fluid Detection Negative Negative [facility] Comment on above: Amniotic fluid not p resent indicates No Rupture of FetalMembranes at time of specimen collection. Culture, urineOrdered By: Jovan Ghosh on 07-24-2023 Bacteria identified Cx Nom (U) Culture exhibits no growth. [facility] Laboratory - Chemistry and C hemistry - challengeon 07-17-2023 Glucose Ql (U) Negative [facility] Laboratory - Urinalysison Protein Ql (U) Negative [facility] Laboratory - Chemistry and C hemistry - challengeon 07-06-2023 Glucose Ql (U) Negative [facility] Laboratory - Urinalysison Protein Ql (U) Negative [facility] Laboratory - Chemistry and C hemistry - challengeon 06-22-2023 Glucose Ql (U) Negative [facility] Laboratory - Urinalysison Protein Ql (U) Negative [facility] Laboratory - Chemistry and C hemistry - challengeon 06-20-2023 Glucose Ql (U) Negative [facility] Laboratory - Urinalysison Protein Ql (U) Negative [facility] Absolute lymphocyte countOrd ered By: Anisa Blackmon on 06-14-2023 Lymphocytes Auto (Unsp spec) [#/Vol] 1.82 10*3/uL 0.83-4.51 [facility] Basophil percentageOrdered B y: Anisa Blackmon on 06-14-2023 Basophils/100 WBC (Bld) 0.4 % 0-1 [facility] Eosinophils/100 WBC (Bld) 0.7 % 0-5 [facility] Neutrophils (Bld) [#/Vol] 9.1 10*3/uL 2.0-7.7 [facility] Neutrophils/100 WBC (Bld) 77.7 % 47-70 [facility] WBC (Bld) [#/Vol] 11.7 10*3/uL 4.4-11.0 [facility] Blood erythrocytes count (nu mber/volume)Ordered By: Anisa Blackmon on 06-14-2023 RBC (Bld) [#/Vol] 3.79 10*6/uL 4.2-5.4 [facility] Blood hemoglobin measurement (mass/volume)Ordered By: Anisa Blackmon on 06-14-2023 Hemoglobin (Bld) [Mass/Vol] 11.2 g/dL 12.0-15.0 [facility] Blood lymphocytes/100 leukoc ytesOrdered By: Anisa Blackmon on 06-14-2023 Lymphocytes/100 WBC (Bld) 15.6 % 19-41 [facility] Blood monocytes/100 leukocyt esOrdered By: Anisa Blackmon on 06-14-2023 Monocytes/100 WBC (Bld) 3.9 % 0-10 [facility] Blood platelet mean volumeOr dered By: Anisa Blackmon on 06-14-2023 Platelet mean volume (Bld) [Entitic vol] 10.0 fL 6.2-12.0 [facility] Determination of erythrocyte mean corpuscular volume (MCV)Ordered By: Anisa Blackmon on 06-14-2023 MCV (RBC) [Entitic vol] 93.1 fL 81-99 [facility] HIV 1 and HIV-2 antibody ass ay with HIV-1 p24 antigen detectionOrdered By: Anisa Blackmon on 06-14-2023 HIV 1+2 Ab+HIV1 p24 Ag IA Ql Non-Reactive Nonreactive [facility] Hematocrit Auto (Bld) [Volum e fraction]Ordered By: Anisa Blackmon on 06-14-2023 Hematocrit (Bld) [Volume fraction] 35.3 % 37-47 [facility] Laboratory - Hematology and Cell countsOrdered By: Anisa Blackmon on 06-14-2023 Erythrocyte distribution width (RBC) [Entitic vol] 47.8 fL 35.1-43.9 [facility] Erythrocyte distribution width (RBC) [Ratio] 14.0 % 11.6-14.6 [facility] Immature granulocytes/100 WBC (Bld) 1.700 % 0.0-0.9 [facility] Comment on above: IG% - Immature Granu locytes (promyelocytes, myelocytes and metamyelocytes) > 1% indicates that a LEFT SHIFT is Present. MCH (RBC) [Entitic mass] 29.6 pg 27.0-32.0 [facility] Nucleated RBC/100 WBC (Bld) [Ratio] 0 % 0-5 [facility] MCHC Auto (RBC) [Mass/Vol]Or dered By: Anisa Blackmon on 06-14-2023 MCHC (RBC) [Mass/Vol] 31.7 g/dL 32-36 [facility] Platelets bldOrdered By: Fidel Blackmon on 06-14-2023 Platelets (Bld) [#/Vol] 315 10*3/uL 150-450 [facility] Serum Treponema species anti body detectionOrdered By: Anisa Blackmon on 06-14-2023 Treponema sp Ab Ql (S) Non-Reactive [facility] Laboratory - Chemistry and C hemistry - challengeon 06-06-2023 Glucose Ql (U) Negative [facility] Laboratory - Urinalysison Protein Ql (U) Negative [facility] Laboratory - Chemistry and C hemistry - challengeon 05-18-2023 Glucose Ql (U) Negative [facility] Laboratory - Urinalysison Protein Ql (U) Negative [facility] Laboratory - Hematology and Cell countson 05-11-2023 HbA1c (Bld) [Mass fraction] 5.3 % 4.2-6.3 [facility] RUBEOon 05-11-2023 Rubeola IgG Ab Positive Normal [facility] ([place]) Comment on above: Result Comment: INTE RPRETATION [...] #### R UBIS, VARIS, HBSAB, RUBEO #### [place] [address] VARISon 05-11-[address] Positive Normal [facility] ([place]) Comment on above: Result Comment: INTE RPRETATION OF VARICELLA IMMUNE STATUS IgG BY EIA: Negative: No detectable VZV IgG antibody. Positive: VZV IgG antibody Detected. If clinically indicated, order Varicella IgM to rule out recent infection. Equivocal: Equivocal for antibodies to VZV. Suggest repeat testing in 10-14 days. Performed By: #### R UBIS, VARIS, HBSAB, RUBEO #### [place] [address] RUBISon 05-10-[address] Positive Normal Positive [facility] ([place]) Comment on above: Result Comment: This immune status assay detects IgM and/or IgG antibody to Rubella. Interpret results in conjunction with clinical history. POS: Antibody detected; exposure at undetermined recent or distant time. If clinically indicated, order Rubella IGM to rule out recent infection. NEG: No antibody detected. Performed By: #### R UBIS, VARIS, HBSAB, RUBEO #### [place] [address] HBSABon 05-09-2023 Hep B Surf Ab 8.8 mIU/mL Low >=10.0 [facility] ([place]) Comment on above: Result Comment: 0 to [...] #### R UBIS, VARIS, HBSAB, RUBEO #### [place] [address] Chlamydia trachomatis rRNA d etection by probe and target amplification methodOrdered By: Fadumo Zelaya on 03-23-2023 C. trachomatis rRNA AMBER+probe Ql (Unsp spec) Negative Negative [facility] Laboratory - Chemistry and C hemistry - challengeon 03-23-2023 Glucose Ql (U) Negative [facility] Laboratory - Microbiology an d Antimicrobial susceptibilityOrdered By: Fadumo Zelaya on 03-23-2023 N. gonorrhoeae DNA AMBER+probe Ql (Unsp spec) Negative Negative [facility] Comment on above: Performed at: =[address] [id number] Director: Cely Funk MD, Phone: [phone] Laboratory - Urinalysison Protein Ql (U) Negative [facility] Laboratory - Chemistry and C hemistry - challengeon 02-23-2023 Glucose Ql (U) 500 g/dL [facility] Laboratory - Urinalysison Protein Ql (U) Negative [facility] Laboratory - Hematology and Cell countson 02-13-2023 HbA1c (Bld) [Mass fraction] 5.6 % 4.2-6.3 [facility] Absolute lymphocyte countOrd ered By: Evelin Porter on 02-08-2023 Lymphocytes Auto (Unsp spec) [#/Vol] 2.10 10*3/uL 0.83-4.51 [facility] Basophil percentageOrdered B y: Evelin Porter on 02-08-2023 Basophils/100 WBC (Bld) 0.4 % 0-1 [facility] Bilirubin [Mass/Vol] 0.20 mg/dL 0.20-1.00 [facility] Comment on above: For patients on eltr ombopag therapy, use of Dimension Newcomb TBIL is not recommended. Chloride [Moles/Vol] 105 mmol/L 98-107 [facility] Eosinophils/100 WBC (Bld) 0.6 % 0-5 [facility] Glucose [Mass/Vol] 187 mg/dL 74-106 [facility] Comment on above: Fasting Glucose resu lt greater than or equal to 126 mg/dL suggests DIABETES MELLITUS per A.D.A. criteria. Neutrophils (Bld) [#/Vol] 9.1 10*3/uL 2.0-7.7 [facility] Neutrophils/100 WBC (Bld) 77.0 % 47-70 [facility] Potassium [Moles/Vol] 3.8 mmol/L 3.5-5.1 [facility] Protein [Mass/Vol] 7.3 g/dL 6.4-8.2 [facility] Sodium [Moles/Vol] 136 mmol/L 136-145 [facility] WBC (Bld) [#/Vol] 11.8 10*3/uL 4.4-11.0 [facility] Blood erythrocytes count (nu mber/volume)Ordered By: Evelin Porter on 02-08-2023 RBC (Bld) [#/Vol] 4.25 10*6/uL 4.2-5.4 [facility] Blood hemoglobin measurement (mass/volume)Ordered By: Evelin Porter on 02-08-2023 Hemoglobin (Bld) [Mass/Vol] 12.5 g/dL 12.0-15.0 [facility] Blood lymphocytes/100 leukoc ytesOrdered By: Evelin Porter on 02-08-2023 Lymphocytes/100 WBC (Bld) 17.8 % 19-41 [facility] Blood monocytes/100 leukocyt esOrdered By: Evelin Porter on 02-08-2023 Monocytes/100 WBC (Bld) 3.4 % 0-10 [facility] Blood platelet mean volumeOr dered By: Evelin Porter on 02-08-2023 Platelet mean volume (Bld) [Entitic vol] 9.6 fL 6.2-12.0 [facility] Determination of erythrocyte mean corpuscular volume (MCV)Ordered By: Evelin Porter on 02-08-2023 MCV (RBC) [Entitic vol] 89.9 fL 81-99 [facility] Gestational diabetes screen 1-hour screen with 50g oral glucose loadOrdered By: Evelin Porter on 02-08-2023 Glucose 1 Hr post 50 g glucose PO [Mass/Vol] 187 mg/dL 70-140 [facility] HIV 1 and HIV-2 antibody ass ay with HIV-1 p24 antigen detectionOrdered By: Evelin Porter on 02-08-2023 HIV 1+2 Ab+HIV1 p24 Ag IA Ql Non-Reactive Nonreactive [facility] Hematocrit Auto (Bld) [Volum e fraction]Ordered By: Evelin Porter on 02-08-2023 Hematocrit (Bld) [Volume fraction] 38.2 % 37-47 [facility] Laboratory - Chemistry and C hemistry - challengeOrdered By: Evelin Porter on 02-08-2023 ALP [Catalytic activity/Vol] 92 U/L 45-117 [facility] ALT [Catalytic activity/Vol] U/L 13-56 [facility] CO2 [Moles/Vol] 24.0 mmol/L 21.0-32.0 [facility] Globulin (S) [Mass/Vol] 4.3 g/dL 2.2-4.2 [facility] Urea nitrogen/Creatinine [Mass ratio] 13.9 mg/mg 10-20 [facility] Laboratory - Hematology and Cell countsOrdered By: Evelin Porter on 02-08-2023 Erythrocyte distribution width (RBC) [Entitic vol] 47.7 fL 35.1-43.9 [facility] Erythrocyte distribution width (RBC) [Ratio] 14.5 % 11.6-14.6 [facility] Immature granulocytes/100 WBC (Bld) 0.800 % 0.0-0.9 [facility] Comment on above: IG% - Immature Granu locytes (promyelocytes, myelocytes and metamyelocytes) > 1% indicates that a LEFT SHIFT is Present. MCH (RBC) [Entitic mass] 29.4 pg 27.0-32.0 [facility] Nucleated RBC/100 WBC (Bld) [Ratio] 0 % 0-5 [facility] MCHC Auto (RBC) [Mass/Vol]Or dered By: Evelin Porter on 02-08-2023 MCHC (RBC) [Mass/Vol] 32.7 g/dL 32-36 [facility] No Panel InformationOrdered By: Evelin Porter on 02-08-2023 Estimated GFR (MDRD) Amer 168 mL/min >60 [facility] Comment on above: GFR Calc Estimated GFR (MDRD) Non-Af Amer 139 mL/min >60 [facility] Comment on above: Non- GFR Calc Hepatitis B Surface Antigen Non-Reactive Nonreactive [facility] Hepatitis C Antibody Non-Reactive Nonreactive [facility] Comment on above: Non Reactive: < 0.8 Equivocal: >/= 0.8 to < 1.0 Reactive: >/= 1.0The CDC recommends that a reactive/equivocal HCV antibody result be followed up by the HCV Nucleic Acid Amplificationtest (619354) Miscellaneous Test Comment MAILED SPECIMEN [facility] Rubella IgG Antibody Reactive Nonreactive [facility] Comment on above: Antibody Results Int erpretation of Immune Status Non Reactive Presumed Non-Immune Equivocal Equivocal Reactive Presumed Immune Platelets bldOrdered By: Gladis Porter on 02-08-2023 Platelets (Bld) [#/Vol] 375 10*3/uL 150-450 [facility] Serum Treponema species anti body detectionOrdered By: Evelin Porter on 02-08-2023 Treponema sp Ab Ql (S) Non-Reactive [facility] Serum or plasma albumin jose cruz urement (mass/volume)Ordered By: Evelin Porter on 02-08-2023 Albumin [Mass/Vol] 3.0 g/dL 3.2-5.0 [facility] Serum or plasma albumin/glob ulin mass ratioOrdered By: Evelin Porter on 02-08-2023 Albumin/Globulin [Mass ratio] 0.7 {ratio} 0.9-2.4 [facility] Serum or plasma calcium jose cruz urement (mass/volume)Ordered By: Evelin Porter on 02-08-2023 Calcium [Mass/Vol] 9.1 mg/dL 8.5-10.1 [facility] Serum or plasma creatinine m easurement (mass/volume)Ordered By: Evelin Porter on 02-08-2023 Creatinine [Mass/Vol] 0.58 mg/dL 0.55-1.02 [facility] Comment on above: The validity of the calculated GFR & GFRAA in patients over 70 years has not been determined. Clinical correlation is essential. Serum or plasma urea nitroge n measurement (mass/volume)Ordered By: Evelin Porter on 02-08-2023 Urea nitrogen [Mass/Vol] 8 mg/dL 7-18 [facility] Thin prep Papanicolaou smear with manual screeningOrdered By: Evelin Porter on 02-08-2023 Thin prep Papanicolaou smear with manual screening 9 U/L 15-37 [facility] Thin prep Papanicolaou smear with manual screening 7 5-15 [facility] Cervical or vagninal specime n microscopic examination by cytology stain (reported asOrdered By: Evelin Porter on 01-25-2023 Cytology report Cyto stain Doc (Cvx/Vag) Comment . [facility] Comment on above: The Pap smear is [...] rRNA AMBER+probe Ql (Unsp spec) Positive Negative [facility] Culture, urineOrdered By: Davi Porter on 01-25-2023 Bacteria identified Cx Nom (U) Positive [facility] Detection in cervical specim en of any of human papilloma virus (HPV) 16, 18, 31, 33,Ordered By: Evelin Porter on 01-25-2023 HPV 16+18+31+33+35+39+45+51 +52+56+58+59+66+68 DNA Probe+sig amp Ql (Cvx) Negative Negative [facility] Comment on above: This nucleic acid am plification test detects fourteen high-risk HPV types (16,18,31,33,35,39,45,51,52,56,58,59,66,68)without differentiation. Laboratory - CytologyOrdered By: Evelin Porter on 01-25-2023 Debt Collection Specialist Cyto stain Nom (Cvx/Vag) [ID] Comment . [facility] Comment on above: Guillermo Coates totechnologist (ASCP) Laboratory - Drug toxicology Ordered By: Evelin Porter on 01-25-2023 Amphetamines Ql (U) Negative <1000 ng/mL [facility] Benzodiazepines Ql (U) Negative < 200 ng/mL [facility] Cannabinoids Screen Ql (U) Positive < 50 ng/mL [facility] Cocaine Ql (U) Negative < 300 ng/mL [facility] Opiates Ql (U) Negative < 300 ng/mL [facility] Laboratory - Microbiology an d Antimicrobial susceptibilityOrdered By: Evelin Porter on 01-25-2023 N. gonorrhoeae DNA AMBER+probe Ql (Unsp spec) Negative Negative [facility] Comment on above: Performed at: =G - [address] [id number] Director: Cely Funk MD, Phone: [phone] Laboratory - Miscellaneous t estsOrdered By: Evelin Porter on 01-25-2023 Service comment (Unsp spec) [Interp] Comment . [facility] Comment on above: This liquid based Th inPrep(R) pap test was screened withthe use of an image guided system. Service comment (Unsp spec) [Interp] . . [facility] Liquid-based cerv Pap + CT/G C by AMBER w reflex to high-risk HPV for ASCUSOrdered By: Evelin Porter on 01-25-2023 Cytology report Cyto stain.thin prep Doc (Cvx/Vag) Comment . [facility] Comment on above: Criteria not met, HP V Genotype not performed.Performed at: - [address] [id number] Director: Cely Funk MD, Phone: [phone] at: = - [address] [place] [id number] Director: Cely Funk MD, Phone: [phone] No Panel InformationOrdered By: Evelin Porter on 01-25-2023 MDMA (Ecstasy) Screen Negative < 500 ng/mL [facility] Pathology report final diagnosis Narrative Comment . [facility] Comment on above: NEGATIVE FOR INTRAEP ITHELIAL LESION OR MALIGNANCY. Urine Barbiturates Screen Negative < 200 ng/mL [facility] Urine Drug Screen Comment [facility] Comment on above: CONFIRMATORY TESTING FOR ALL [...] Urine Methadone Screen Negative < 300 ng/mL [facility] Urine creatinine measurement (mass/volume)Ordered By: Evelin Porter on 01-25-2023 Creatinine (U) [Mass/Vol] 344.00 mg/dL NO RANGE EST. [facility] Urine phencyclidine (PCP) de tectionOrdered By: Evelin Porter on 01-25-2023 Phencyclidine Ql (U) Negative < 25 ng/mL [facility] Urine protein measurement (m ass/volume)Ordered By: Evelin Porter on 01-25-2023 Protein (U) [Mass/Vol] 44.5 mg/dL 0.0-11.8 [facility] Urine protein/creatinine mas s ratioOrdered By: Evelin Porter on 01-25-2023 Protein/Creatinine (U) [Mass ratio] 129 mg/g CRE 0-200 [facility] CBCon 04-02-2017 Erythrocyte distribution width Auto Ratio (RBC) 13.0 % Normal 11-14.5 [facility] Comment on above: Performed By: #### L 200.18273 #### [id number] [place], [place] [address]Oe# [phone] Erythrocytes (RBC) 0.0 % Normal Less than [address] [facility] Comment on above: Performed By: #### L 200.81471 #### [id number] [place], [place] [address]Nl# [phone] Erythrocytes (RBC) 4.40 M/CU MM Normal 3.90-5.30 [facility] Comment on above: Performed By: #### L 200.27407 #### [id number] [place] [address]Cp# [phone] Hematocrit (HCT) 38.7 % Normal 35.0-47.[address] [facility] Comment on above: Performed By: #### L 200.81643 ####[address] [address]Dh# [phone] Hemoglobin mass conc (Bld) 13.1 g/dL Normal 11.5-15.[address] [facility] Comment on above: Performed By: #### L 200.16503 #### [id number] [place] [address]Vq# [phone] MCHC mass conc (RBC) 33.9 g/dL Normal 32.0-36.0 [facility] Comment on above: Performed By: #### L 200.82079 #### [id number] [place] [address]Sd# [phone] MCV 88.0 fL Normal 80.0-99.[address] [facility] Comment on above: Performed By: #### L 200.81520 #### [id number] [place] [address]Ss# [phone] Platelet mean volume (PMV) 10.2 fL Normal 9.4-12.[address] [facility] Comment on above: Performed By: #### L 200.53252 #### [id number] [place] [address]Gx# [phone] Platelets 364 K/CU MM Normal 150-[address] [facility] Comment on above: Performed By: #### L 200.92741 #### [id number] [place], [place] [address]Ni# [phone] WBC (Leukocytes) 9.9 K/CU MM Normal 4.5-11.[address] [facility] Comment on above: Performed By: #### L 200.76568 #### [id number] [place], [place] [address]Xs# [phone] CMPon 04-02-2017 Alanine aminotransferase (ALT) 11 U/L Low 13-[address] [facility] Comment on above: Performed By: #### L 500.29547, L500.13989 #### [id number] [place], [place] [address]Wt# [phone] Albumin 3.9 g/dL Normal 3.2-5.[address] [facility] Comment on above: Performed By: #### L 500.02829, L500.55601 #### [id number] [place], [place] [address]Cm# [phone] Albumin/Globulin Ratio 1.1 {ratio} Normal 0.8-2.0 M [facility] Comment on above: Performed By: #### L 500.68764, L500.70927 #### [id number] [place], [place] [address]Ce# [phone] ALK PHOS 160 U/L High 45-[address] [facility] Comment on above: Performed By: #### L 500.71880, L500.79125 #### [id number] [place], [place] [address]Zs# [phone] Anion gap 8 mmol/L Normal 5-[address] [facility] Comment on above: Performed By: #### L 500.33944, L500.10647 #### [id number] [place], [place] [address]Lq# [phone] BILI TOTAL 0.3 MG/DL Normal 0.2-1.[address] [facility] Comment on above: Performed By: #### L 500.87068, L500.69273 #### [id number] [place], [place] [address]So# [phone] BUN/Creatinine Ratio 13 mg/mg Low 15-24 [facility] Comment on above: Performed By: #### L 500.35748, L500.80166 #### [id number] [place], [place] [address]Lw# [phone] Calcium 9.3 mg/dL Normal 8.5-10.[address] [facility] Comment on above: Performed By: #### L 500.99650, L500.53565 #### [id number] [place], [place] [address]Bh# [phone] Chloride 106 mmol/L Normal 98-[address] [facility] Comment on above: Performed By: #### L 500.12959, L500.31598 #### [id number] [place] [address]Lm# [phone] CO2 24 mmol/L Normal 21-[address] [facility] Comment on above: Performed By: #### L 500.23653, L500.52029 #### [id number] [place], [place] [address]Ei# [phone] Creatinine 0.957 mg/dL High 0.510-0.[address] [facility] Comment on above: Result Comment: Marlyn ents receiving either N-Acetylcysteine (NAC) orMetamizole prior to venipuncture, may have falsely depressedresults. Performed By: #### L 500.56550, L500.87222 #### [id number] [place], [place] [address]Vs# [phone] Globulin 3.4 g/dL Normal 2.2-4.[address] [facility] Comment on above: Performed By: #### L 500.83082, L500.89927 #### [id number] [place], [place] [address]Np# [phone] Glucose mass conc 76 mg/dL Normal 70-[address] [facility] Comment on above: Result Comment: 70-1 00-Normal Fasting; 405-221-Yzrdjllh Fasting; greaterthan 126 on more than one result-Diabetes. ADA guidelines Performed By: #### L 500.77540, L500.08329 #### [id number] [place], [place] [address]Kv# [phone] Potassium molar conc 4.2 mmol/L Normal 3.5-5.1 [facility] Comment on above: Performed By: #### L 500.36737, L500.67560 #### [id number] [place], [place] [address]Dz# [phone] Protein 7.3 g/dL Normal 6.0-8.[address] [facility] Comment on above: Performed By: #### L 500.02678, L500.64678 #### [id number] [place], [place] [address]Ej# [phone] SGOT (AST) 10 U/L Normal 8-[address] [facility] Comment on above: Performed By: #### L 500.13152, L500.87948 #### [id number] [place], [place] [address]Oe# [phone] Sodium 138 mmol/L Normal 136-[address] [facility] Comment on above: Performed By: #### L 500.08167, L500.48905 #### [id number] [place], [place] [address]Ne# [phone] Urea nitrogen 12 mg/dL Normal 7-[address] [facility] Comment on above: Performed By: #### L 500.35627, L500.83568 #### [id number] [place], [place] [address]Cs# [phone] TSHon 04-02-2017 Thyroid stimulating hormone (TSH) 1.350 UIU/ML Normal 0.438-3.[address] [facility] Comment on above: Result Comment: 3rd generation ultra sensitive TSH Performed By: #### L 500.20648, L500.77588 #### [id number] [place], [place] [address]Zg# [phone] UR DRUG ABUSEon 04-02-2017 UR AMPH Negative Normal Hniibj=[address] [facility] Comment on above: Performed By: #### L 600.96912 #### [id number] [place] [address]Gd# [phone] UR SAGRARIO Negative Normal Vumfdt=[address] [facility] Comment on above: Performed By: #### L 600.33268 #### [id number] [place] [address]Pj# [phone] UR LULU Negative Normal Hgaysa=[address] [facility] Comment on above: Performed By: #### L 600.86183 #### [id number] [place] [address]Jf# [phone] UR ADRIANNE/THC Negative Normal Cutoff=[address] [facility] Comment on above: Performed By: #### L 600.54574 #### [id number] [place] [address]Dj# [phone] UR TIP Negative Normal Kflvuv=[address] [facility] Comment on above: Performed By: #### L 600.64753 #### [id number] [place] [address]Xo# [phone] UR OPIAT Negative Normal Ugffpx=[address] [facility] Comment on above: Performed By: #### L 600.42256 #### [id number] [place] [address]Iq# [phone] UR PCP Negative Normal Cutoff=[address] [facility] Comment on above: Performed By: #### L 600.98306 #### [id number] [place] [address]Io# [phone] DRAB COMMENT Normal [facility] Comment on above: Result Comment: [facility] results are qualitative, providing apreliminary analytical result. A positive result for anassay should be confirmed by another nonimmunological,reference method. A negative result indicates that theassay material is either not present, or present at levelsbelow the cutoff threshold for the analytical method range(AMR) validation. Performed By: #### L 600.46608 #### [id number] [place], [place] [address]Du# [phone] Vital Signs Date Time Vital Sign Value Performing Clinician Faci lity 01-29-2025 15:02-0400 Body height 160.02 cm Bird Ruiz [employer] RESEARCHER-C Work Phone: [facility] 01-29-2025 15:02-0400 Body mass index (BMI) [Ratio] 48.4 kg/m2 Bird Ruiz [employer] RESEARCHER-C Work Phone: [facility] 01-29-2025 15:02-0400 Body weight 124 kg Bird Ruiz [employer] RESEARCHER-C Work Phone: [facility] 01-29-2025 15:02-0400 Diastolic blood pressure 79 mm[Hg] iBrd Ruiz [employer] RESEARCHER-C Work Phone: [facility] 01-29-2025 15:02-0400 Systolic blood pressure 134 mm[Hg] Bird Ruiz [employer] RESEARCHER-C Work Phone: [facility] 01-22-2025 14:48-0400 Body height 160.02 cm Bird Ruiz [employer] RESEARCHER-C Work Phone: [facility] 01-22-2025 14:48-0400 Body mass index (BMI) [Ratio] 48.4 kg/m2 Bird Ruiz [employer] RESEARCHER-C Work Phone: [facility] 01-22-2025 14:48-0400 Body weight 124 kg Bird Ruiz [employer] RESEARCHER-C Work Phone: [facility] 01-22-2025 14:48-0400 Diastolic blood pressure 84 mm[Hg] Bird Ruiz [employer] RESEARCHER-C Work Phone: [facility] 01-22-2025 14:48-0400 Systolic blood pressure 125 mm[Hg] Bird Ruiz [employer] RESEARCHER-C Work Phone: [facility] 01-16-2025 16:07-0400 Body height 160.02 cm Bird Ruiz [employer] RESEARCHER-C Work Phone: [facility] 01-16-2025 16:03-0400 Body mass index (BMI) [Ratio] 48.2 kg/m2 iBrd Ruiz [employer] RESEARCHER-C Work Phone: [facility] 01-16-2025 16:03-0400 Body weight 123.43 kg Bird Ruiz [employer] RESEARCHER-C Work Phone: [facility] 01-16-2025 16:03-0400 Diastolic blood pressure 83 mm[Hg] Bird Ruiz [employer] RESEARCHER-C Work Phone: [facility] 01-16-2025 16:03-0400 Systolic blood pressure 121 mm[Hg] Bird Ruiz [employer] RESEARCHER-C Work Phone: [facility] 01-13-2025 19:19-0400 Body height 160.02 cm Bird Ruiz [employer] RESEARCHER-C Work Phone: [facility] 01-13-2025 19:19-0400 Body mass index (BMI) [Ratio] 48.5 kg/m2 Bird Ruiz [employer] RESEARCHER-C Work Phone: [facility] 01-13-2025 19:19-0400 Body weight 124.28 kg Bird Ruiz [employer] RESEARCHER-C Work Phone: [facility] 01-13-2025 19:17-0400 Body temperature 97.6 [degF] Bird Ruiz [employer] RESEARCHER-C Work Phone: [facility] 01-13-2025 19:17-0400 Diastolic blood pressure 66 mm[Hg] Bird Ruiz [employer] RESEARCHER-C Work Phone: [facility] 01-13-2025 19:17-0400 Heart rate 86 /min Bird Ruiz [employer] RESEARCHER-C Work Phone: [facility] 01-13-2025 19:17-0400 Respiratory rate 16 /min Bird Ruiz [employer] RESEARCHER-C Work Phone: [facility] 01-13-2025 19:17-0400 Systolic blood pressure 128 mm[Hg] Bird Ruiz [employer] RESEARCHER-C Work Phone: [facility] 01-08-2025 15:50-0400 Diastolic blood pressure 74 mm[Hg] Bird Ruiz [employer] RESEARCHER-C Work Phone: [facility] 01-08-2025 15:50-0400 Heart rate 76 /min Bird Ruiz [employer] RESEARCHER-C Work Phone: [facility] 01-08-2025 15:50-0400 Systolic blood pressure 135 mm[Hg] Bird Ruiz [employer] RESEARCHER-C Work Phone: [facility] 01-08-2025 14:35-0400 SaO2% (BldA) [Mass fraction] 98 % Bird Ruiz [employer] RESEARCHER-C Work Phone: [facility] 01-08-2025 14:30-0400 Body height 160.02 cm Bird Ruiz [employer] RESEARCHER-C Work Phone: [facility] 01-08-2025 14:30-0400 Body mass index (BMI) [Ratio] 47.9 kg/m2 Bird Ruiz [employer] RESEARCHER-C Work Phone: [facility] 01-08-2025 14:30-0400 Body temperature 96.9 [degF] Bird Ruiz [employer] RESEARCHER-C Work Phone: [facility] 01-08-2025 14:30-0400 Body weight 122.9 kg Bird Ruiz [employer] RESEARCHER-C Work Phone: [facility] 01-08-2025 14:30-0400 Respiratory rate 16 /min Bird Ruiz [employer] RESEARCHER-C Work Phone: [facility] 01-08-2025 13:57-0400 Body height 160.02 cm Bird Ruiz [employer] RESEARCHER-C Work Phone: [facility] 01-08-2025 13:50-0400 Body mass index (BMI) [Ratio] 48 kg/m2 Bird Ruiz [employer] RESEARCHER-C Work Phone: [facility] 01-08-2025 13:50-0400 Body weight 123.03 kg Bird Ruiz [employer] RESEARCHER-C Work Phone: [facility] 01-08-2025 13:50-0400 Diastolic blood pressure 82 mm[Hg] Bird Ruiz [employer] RESEARCHER-C Work Phone: [facility] 01-08-2025 13:50-0400 Systolic blood pressure 140 mm[Hg] Bird Ruiz [employer] RESEARCHER-C Work Phone: [facility] 12-26-2024 14:28-0400 Body height 160.02 cm Bird Ruiz [employer] RESEARCHER-C Work Phone: [facility] 12-26-2024 14:26-0400 Body mass index (BMI) [Ratio] 46.8 kg/m2 Bird Ruiz [employer] RESEARCHER-C Work Phone: [facility] 12-26-2024 14:26-0400 Body weight 119.91 kg Bird Ruiz [employer] RESEARCHER-C Work Phone: [facility] 12-26-2024 14:26-0400 Diastolic blood pressure 82 mm[Hg] Bird Ruiz [employer] RESEARCHER-C Work Phone: [facility] 12-26-2024 14:26-0400 Systolic blood pressure 138 mm[Hg] Bird Ruiz [employer] RESEARCHER-C Work Phone: [facility] 12-16-2024 10:39-0400 Body height 160.02 cm Bird Ruiz [employer] RESEARCHER-C Work Phone: [facility] 12-16-2024 10:39-0400 Body mass index (BMI) [Ratio] 47.2 kg/m2 Bird Ruiz [employer] RESEARCHER-C Work Phone: [facility] 12-16-2024 10:39-0400 Body weight 121.1 kg Bird Ruiz [employer] RESEARCHER-C Work Phone: [facility] 12-16-2024 10:39-0400 Diastolic blood pressure 77 mm[Hg] Bird Ruiz [employer] RESEARCHER-C Work Phone: [facility] 12-16-2024 10:39-0400 Heart rate 88 /min Bird Ruiz [employer] RESEARCHER-C Work Phone: [facility] 12-16-2024 10:39-0400 SaO2% (BldA) [Mass fraction] 97 % Bird Ruiz [employer] RESEARCHER-C Work Phone: [facility] 12-16-2024 10:39-0400 Systolic blood pressure 120 mm[Hg] Bird Ruiz [employer] RESEARCHER-C Work Phone: [facility] 12-11-2024 15:58-0400 Body height 160.02 cm Bird Ruiz [employer] RESEARCHER-C Work Phone: [facility] 12-11-2024 15:51-0400 Body mass index (BMI) [Ratio] 46.6 kg/m2 Bird Ruiz [employer] RESEARCHER-C Work Phone: [facility] 12-11-2024 15:51-0400 Body weight 119.4 kg Bird Ruiz [employer] RESEARCHER-C Work Phone: [facility] 12-11-2024 15:51-0400 Diastolic blood pressure 78 mm[Hg] Bird Ruiz [employer] RESEARCHER-C Work Phone: [facility] 12-11-2024 15:51-0400 Systolic blood pressure 124 mm[Hg] Bird Ruiz [employer] RESEARCHER-C Work Phone: [facility] 11-11-2024 15:03-0400 Body height 160.02 cm Bird Ruiz [employer] RESEARCHER-C Work Phone: [facility] 11-11-2024 15:03-0400 Body mass index (BMI) [Ratio] 46.3 kg/m2 Bird Ruiz [employer] RESEARCHER-C Work Phone: [facility] 11-11-2024 15:03-0400 Body weight 118.61 kg Bird Ruiz [employer] RESEARCHER-C Work Phone: [facility] 11-11-2024 15:03-0400 Diastolic blood pressure 82 mm[Hg] Bird Ruiz [employer] RESEARCHER-C Work Phone: [facility] 11-11-2024 15:03-0400 Systolic blood pressure 120 mm[Hg] Bird Ruiz [employer] RESEARCHER-C Work Phone: [facility] 10-31-2024 14:10-0400 Body mass index (BMI) [Ratio] 46.7 kg/m2 Bird Ruiz [employer] RESEARCHER-C Work Phone: [facility] 10-31-2024 14:10-0400 Body weight 119.86 kg Bird Ruiz [employer] RESEARCHER-C Work Phone: [facility] 10-31-2024 14:10-0400 Diastolic blood pressure 84 mm[Hg] Bird Ruiz [employer] RESEARCHER-C Work Phone: [facility] 10-31-2024 14:10-0400 Systolic blood pressure 129 mm[Hg] Bird Ruiz [employer] RESEARCHER-C Work Phone: [facility] 10-02-2024 15:00-0400 Body mass index (BMI) [Ratio] 45.7 kg/m2 Bird Ruiz [employer] RESEARCHER-C Work Phone: [facility] 10-02-2024 15:00-0400 Body weight 117.08 kg Bird Ruiz [employer] RESEARCHER-C Work Phone: [facility] 10-02-2024 15:00-0400 Diastolic blood pressure 82 mm[Hg] Bird Ruiz [employer] RESEARCHER-C Work Phone: [phone] [place] [address] 10-02-2024 15:00-0400 Systolic blood pressure 122 mm[Hg] Bird Ruiz [employer] RESEARCHER-C Work Phone: [phone] [place] [address] 08-27-2024 15:30-0500 Body mass index (BMI) [Ratio] 45.2 kg/m2 Bird Ruiz [employer] RESEARCHER-C Work Phone: [phone](676)[phone] [place] [address] 08-27-2024 15:30-0500 Body weight 115.77 kg Bird Ruiz [employer] RESEARCHER-C Work Phone: [phone])[phone] [place] [address] 08-27-2024 15:30-0500 Diastolic blood pressure 82 mm[Hg] Bird Ruiz [employer] RESEARCHER-C Work Phone: [phone] [place] [address] 08-27-2024 15:30-0500 Systolic blood pressure 135 mm[Hg] Bird Ruiz [employer] RESEARCHER-C Work Phone: [phone]([phone] [place] [address] 08-01-2024 11:40-0500 Body mass index (BMI) [Ratio] 44.3 kg/m2 Bird Ruiz [employer] RESEARCHER-C Work Phone: [facility] 08-01-2024 11:40-0500 Body weight 113.56 kg Bird Ruiz [employer] RESEARCHER-C Work Phone: [facility] 08-01-2024 11:40-0500 Diastolic blood pressure 83 mm[Hg] Bird Ruiz [employer] RESEARCHER-C Work Phone: [facility] 08-01-2024 11:40-0500 Systolic blood pressure 124 mm[Hg] Bird Ruiz [employer] RESEARCHER-C Work Phone: [facility] 08-22-2023 08:42-0500 Body temperature 97.4 [degF] [employer] RESEARCHER-C Bird Ruiz [employer] RESEARCHER Work Phone: [facility] 08-22-2023 08:42-0500 Diastolic blood pressure 70 mm[Hg] [employer] RESEARCHER-C Bird Ruiz [employer] RESEARCHER Work Phone: [facility] 08-22-2023 08:42-0500 Heart rate 93 /min [employer] RESEARCHER-Holden Ruiz [employer] RESEARCHER Work Phone: [facility] 08-22-2023 08:42-0500 Respiratory rate 16 /min [employer] RESE[employer]ER-C Bird Ruiz [employer] RESEARCHER Work Phone: [facility] 08-22-2023 08:42-0500 SaO2% (BldA) [Mass fraction] 98 % [employer] RESEARCHER-Holden Ruiz [employer] RESEARCHER Work Phone: [facility] 08-22-2023 08:42-0500 Systolic blood pressure 124 mm[Hg] [employer] RESEARCHER-C Bird Ruiz [employer] RESEARCHER Work Phone: [facility] 08-20-2023 06:16-0500 Body height 160.02 cm [employer] RESEARCHER-Holden Ruiz [employer] RESEARCHER Work Phone: [facility] 08-20-2023 06:16-0500 Body mass index (BMI) [Ratio] 47.9 kg/m2 [employer] RESEARCHER-Holden Ruiz [employer] RESEARCHER Work Phone: [facility] 08-20-2023 06:16-0500 Body weight 122.74 kg [employer] RESEARCHER-Holden Ruiz [employer] RESEARCHER Work Phone: [facility] 08-14-2023 11:12-0500 Body mass index (BMI) [Ratio] 47.3 kg/m2 [employer] RESEARCHER-Holden Ruiz [employer] RESEARCHER Work Phone: [facility] 08-14-2023 11:12-0500 Body weight 121.16 kg [employer] RESEARCHER-Holden Ruiz [employer] RESEARCHER Work Phone: [facility] 08-14-2023 11:12-0500 Diastolic blood pressure 79 mm[Hg] PARMINDER-Holden Ruiz [employer] RESEARCHER Work Phone: [facility] 08-14-2023 11:12-0500 Systolic blood pressure 124 mm[Hg] MING Ruiz [employer] RESEARCHER Work Phone: [facility] 08-10-2023 14:17-0500 Body height 160.02 cm PARMINDER-Holden Ruiz [employer] RESEARCHER Work Phone: [facility] 08-10-2023 14:17-0500 Body mass index (BMI) [Ratio] 47.3 kg/m2 [employer] RESEARCHER-C Bird Ruiz [employer] RESEARCHER Work Phone: [facility] 08-10-2023 14:17-0500 Body weight 121.16 kg [employer] RESEARCHER-C Bird Ruiz [employer] RESEARCHER Work Phone: [facility] 08-10-2023 14:17-0500 Diastolic blood pressure 84 mm[Hg] [employer] RESEARCHER-C Bird Ruiz [employer] RESEARCHER Work Phone: [facility] 08-10-2023 14:17-0500 Systolic blood pressure 125 mm[Hg] [employer] RESEARCHER-C Bird Ruiz [employer] RESEARCHER Work Phone: [facility] 08-07-2023 11:21-0500 Body height 160.02 cm [employer] RESEARCHER-Holden Ruiz [employer] RESEARCHER Work Phone: [facility] 08-07-2023 11:18-0500 Body mass index (BMI) [Ratio] 47.2 kg/m2 [employer] RESE[employer]ER-C Bird Ruiz [employer] RESEARCHER Work Phone: [facility] 08-07-2023 11:18-0500 Body weight 121.1 kg [employer] RESEARCHER-Holden Ruiz [employer] RESEARCHER Work Phone: [facility] 08-07-2023 11:18-0500 Diastolic blood pressure 76 mm[Hg] [employer] RESEARCHER-Holden Ruiz [employer] RESEARCHER Work Phone: [facility] 08-07-2023 11:18-0500 Systolic blood pressure 120 mm[Hg] [employer] RESEARCHER-C Bird Ruiz [employer] RESEARCHER Work Phone: [facility] 08-03-2023 13:12-0500 Body mass index (BMI) [Ratio] 46.5 kg/m2 [employer] RESEARCHER-Holden Ruiz [employer] RESEARCHER Work Phone: [facility] 08-03-2023 13:12-0500 Body weight 119.29 kg [employer] RESEARCHER-C Bird Ruiz [employer] RESEARCHER Work Phone: [facility] 08-03-2023 13:12-0500 Diastolic blood pressure 77 mm[Hg] [employer] RESEARCHER-C Bird Ruiz [employer] RESEARCHER Work Phone: [facility] 08-03-2023 13:12-0500 Systolic blood pressure 123 mm[Hg] [employer] RESEARCHER-C Bird Ruiz [employer] RESEARCHER Work Phone: [facility] 07-31-2023 13:41-0500 Body mass index (BMI) [Ratio] 46 kg/m2 [employer] RESEARCHER-C Bird Ruiz [employer] RESEARCHER Work Phone: [facility] 07-31-2023 13:41-0500 Body weight 117.93 kg [employer] RESEARCHER-C Bird Ruiz [employer] RESEARCHER Work Phone: [facility] 07-31-2023 13:41-0500 Diastolic blood pressure 84 mm[Hg] [employer] RESEARCHER-C Bird Ruiz [employer] RESEARCHER Work Phone: [facility] 07-31-2023 13:41-0500 Systolic blood pressure 124 mm[Hg] [employer] RESEARCHER-C Bird Ruiz [employer] RESEARCHER Work Phone: [facility] 07-27-2023 14:43-0500 Body mass index (BMI) [Ratio] 46.4 kg/m2 [employer] RESEARCHER-C Bird Ruiz [employer] RESEARCHER Work Phone: [facility] 07-27-2023 14:43-0500 Body weight 118.89 kg [employer] RESEARCHER-Holden Ruiz [employer] RESEARCHER Work Phone: [facility] 07-27-2023 14:43-0500 Diastolic blood pressure 79 mm[Hg] [employer] RESEARCHER-C Bird Ruiz [employer] RESEARCHER Work Phone: [facility] 07-27-2023 14:43-0500 Systolic blood pressure 113 mm[Hg] [employer] RESEARCHER-C Bird Ruiz [employer] GEN[employer] RESEARCHER Work Phone: [facility] 07-25-2023 16:32-0500 Diastolic blood pressure 73 mm[Hg] SWINE GENETICS RESEARCHER-C Bird Ruiz SWINE GENETICS RESEARCHER Work Phone: [facility] 07-25-2023 16:32-0500 Heart rate 90 /min SWINE GENETICS RESEARCHER-Holden Ruiz SWINE GENETICS RESEARCHER Work Phone: [facility] 07-25-2023 16:32-0500 Systolic blood pressure 119 mm[Hg] SWINE GENETICS RESEARCHER-Holden Ruiz SWINE GENETICS RESEARCHER Work Phone: [facility] 07-25-2023 15:56-0500 SaO2% (BldA) [Mass fraction] 98 % SWINE GENETICS RESEARCHER-Holden Ruiz SWINE GENETICS RESEARCHER Work Phone: [facility] 07-25-2023 15:34-0500 Body height 160.02 cm SWINE GENETICS RESEARCHER-Holden Ruiz SWINE GENETICS RESEARCHER Work Phone: [facility] 07-25-2023 15:34-0500 Body mass index (BMI) [Ratio] 46 kg/m2 SWINE GENETICS RESEARCHER-Holden Ruiz SWINE GENETICS RESEARCHER Work Phone: [phone] [place] [address] 07-25-2023 15:34-0500 Body weight 117.93 kg SWINE GENETICS RESEARCHER-Holden Ruiz SWINE GENETICS RESEARCHER Work Phone: [facility] 07-25-2023 15:26-0500 Body temperature 98.1 [degF] PARMINDER-Holden Ruiz SWINE GENETICS RESEARCHER Work Phone: [facility] 07-24-2023 13:57-0500 Body mass index (BMI) [Ratio] 46.4 kg/m2 PARMINDER-Holden Ruiz SWINE GENETICS RESEARCHER Work Phone: [facility] 07-24-2023 13:57-0500 Body weight 118.89 kg SWINE GENETICS RESEARCHER-Holden Ruiz SWINE GENETICS RESEARCHER Work Phone: [facility] 07-24-2023 13:57-0500 Diastolic blood pressure 81 mm[Hg] PARMINDER-Holden Ruiz SWINE GENETICS RESEARCHER Work Phone: [facility] 07-24-2023 13:57-0500 Systolic blood pressure 120 mm[Hg] PARMINDER-Holden Ruiz SWINE GENETICS RESEARCHER Work Phone: [facility] 07-17-2023 14:39-0500 Body mass index (BMI) [Ratio] 46.4 kg/m2 SWINE GENETICS RESEARCHER-Holden Ruiz SWINE GENETICS RESEARCHER Work Phone: [facility] 07-17-2023 14:39-0500 Body weight 118.84 kg SWINE GENETICS RESEARCHER-C Bird Ruiz SWINE GENETICS RESEARCHER Work Phone: [facility] 07-17-2023 14:39-0500 Diastolic blood pressure 77 mm[Hg] SWINE GENETICS RESEARCHER-C Bird Ruiz SWINE GENETICS RESEARCHER Work Phone: [facility] 07-17-2023 14:39-0500 Systolic blood pressure 122 mm[Hg] SWINE GENETICS RESEARCHER-C Bird Ruiz SWINE GENETICS RESEARCHER Work Phone: [facility] 07-13-2023 15:20-0500 Body mass index (BMI) [Ratio] 45.9 kg/m2 SWINE GENETICS RESEARCHER-Holden Ruiz SWINE GENETICS RESEARCHER Work Phone: [facility] 07-13-2023 15:20-0500 Body weight 117.65 kg SWINE GENETICS RESEARCHER-C Bird Ruzi SWINE GENETICS RESEARCHER Work Phone: [facility] 07-13-2023 15:20-0500 Diastolic blood pressure 80 mm[Hg] SWINE GENETICS RESEARCHER-C Bird Ruiz SWINE GENETICS RESEARCHER Work Phone: [facility] 07-13-2023 15:20-0500 Systolic blood pressure 124 mm[Hg] SWINE GENETICS RESEARCHER-Holden Ruiz SWINE GENETICS RESEARCHER Work Phone: [facility] 07-06-2023 13:47-0500 Body height 160.02 cm SWINE GENETICS RESEARCHER-Holden Ruiz SWINE GENETICS RESEARCHER Work Phone: [facility] 07-06-2023 13:44-0500 Body mass index (BMI) [Ratio] 47.5 kg/m2 SWINE GENETICS RESEARCHER-Holden Ruiz SWINE GENETICS RESEARCHER Work Phone: [facility] 07-06-2023 13:44-0500 Body weight 121.56 kg SWINE GENETICS RESEARCHER-Holden Ruiz SWINE GENETICS RESEARCHER Work Phone: [facility] 07-06-2023 13:44-0500 Diastolic blood pressure 76 mm[Hg] SWINE GENETICS RESEARCHER-C Bird Ruiz SWINE GENETICS RESEARCHER Work Phone: [facility] 07-06-2023 13:44-0500 Systolic blood pressure 120 mm[Hg] SWINE GENETICS RESEARCHER-C Bird Ruiz SWINE GENETICS RESEARCHER Work Phone: [facility] 06-22-2023 14:12-0500 Body height 160.02 cm SWINE GENETICS RESEARCHER-Holden Ruiz SWINE GENETICS RESEARCHER Work Phone: [facility] 06-22-2023 14:07-0500 Body mass index (BMI) [Ratio] 45.7 kg/m2 SWINE GENETICS RESEARCHER-C Bird Ruiz SWINE GENETICS RESEARCHER Work Phone: [facility] 06-22-2023 14:07-0500 Body weight 117.14 kg SWINE GENETICS RESEARCHER-C Bird Ruiz SWINE GENETICS RESEARCHER Work Phone: [facility] 06-22-2023 14:07-0500 Diastolic blood pressure 53 mm[Hg] SWINE GENETICS RESEARCHER-C Bird Ruiz SWINE GENETICS RESEARCHER Work Phone: [facility] 06-22-2023 14:07-0500 Systolic blood pressure 91 mm[Hg] SWINE GENETICS RESEARCHER-C Bird Ruiz SWINE GENETICS RESEARCHER Work Phone: [facility] 06-20-2023 11:01-0500 Body mass index (BMI) [Ratio] 45.6 kg/m2 SWINE GENETICS RESEARCHER-Holden Ruiz SWINE GENETICS RESEARCHER Work Phone: [facility] 06-20-2023 11:01-0500 Body weight 116.71 kg SWINE GENETICS RESEARCHER-Holden Ruiz SWINE GENETICS RESEARCHER Work Phone: [facility] 06-20-2023 11:01-0500 Diastolic blood pressure 82 mm[Hg] SWINE GENETICS RESEARCHER-Holden Ruiz SWINE GENETICS RESEARCHER Work Phone: [facility] 06-20-2023 11:01-0500 Systolic blood pressure 122 mm[Hg] SWINE GENETICS RESEARCHER-Holden Ruiz SWINE GENETICS RESEARCHER Work Phone: [facility] 06-06-2023 13:33-0500 Body height 160.02 cm SWINE GENETICS RESEARCHER-C Bird Ruiz SWINE GENETICS RESEARCHER Work Phone: [facility] 06-06-2023 13:33-0500 Body mass index (BMI) [Ratio] 45.7 kg/m2 SWINE GENETICS RESEARCHER-C Bird Ruiz SWINE GENETICS RESEARCHER Work Phone: [facility] 06-06-2023 13:33-0500 Body weight 117.02 kg SWINE GENETICS RESEARCHER-C Bird Ruiz SWINE GENETICS RESEARCHER Work Phone: [facility] 06-06-2023 13:33-0500 Diastolic blood pressure 82 mm[Hg] SWINE GENETICS RESEARCHER-C Bird Ruiz SWINE GENETICS RESEARCHER Work Phone: [facility] 06-06-2023 13:33-0500 Systolic blood pressure 116 mm[Hg] SWINE GENETICS RESEARCHER-C Bird Ruiz SWINE GENETICS RESEARCHER Work Phone: [phone] [place] [address] 05-18-2023 13:52-0500 Body mass index (BMI) [Ratio] 43.8 kg/m2 SWINE GENETICS RESEARCHER-C Bird Ruiz SWINE GENETICS RESEARCHER Work Phone: [facility] 05-18-2023 13:52-0500 Body weight 112.23 kg SWINE GENETICS RESEARCHER-C Bird Ruiz SWINE GENETICS RESEARCHER Work Phone: [facility] 05-18-2023 13:52-0500 Diastolic blood pressure 83 mm[Hg] SWINE GENETICS RESEARCHER-C Bird Ruiz SWINE GENETICS RESEARCHER Work Phone: [facility] 05-18-2023 13:52-0500 Systolic blood pressure 130 mm[Hg] SWINE GENETICS RESEARCHER-C Bird Ruiz SWINE GENETICS RESEARCHER Work Phone: [facility] 05-11-2023 14:40-0500 Body mass index (BMI) [Ratio] 43.4 kg/m2 SWINE GENETICS RESEARCHER-Holden Ruiz SWINE GENETICS RESEARCHER Work Phone: [facility] 05-11-2023 14:40-0500 Body temperature 98 [degF] SWINE GENETICS RESEARCHER-Holden Ruiz SWINE GENETICS RESEARCHER Work Phone: [facility] 05-11-2023 14:40-0500 Body weight 111.3 kg SWINE GENETICS RESEARCHER-C Bird Ruiz SWINE GENETICS RESEARCHER Work Phone: [facility] 05-11-2023 14:40-0500 Diastolic blood pressure 68 mm[Hg] SWINE GENETICS RESEARCHER-C Bird Ruiz SWINE GENETICS RESEARCHER Work Phone: [facility] 05-11-2023 14:40-0500 Heart rate 76 /min SWINE GENETICS RESEARCHER-C Bird Ruiz SWINE GENETICS RESEARCHER Work Phone: [facility] 05-11-2023 14:40-0500 Respiratory rate 16 /min SWINE GENETICS RESEARCHER-C Bird Ruiz SWINE GENETICS RESEARCHER Work Phone: [facility] 05-11-2023 14:40-0500 SaO2% (BldA) [Mass fraction] 97 % SWINE GENETICS RESEARCHER-C Bird Ruiz SWINE GENETICS RESEARCHER Work Phone: [facility] 05-11-2023 14:40-0500 Systolic blood pressure 102 mm[Hg] SWINE GENETICS RESEARCHER-C Bird Ruiz SWINE GENETICS RESEARCHER Work Phone: [facility] 03-23-2023 14:09-0400 Body height 160.02 cm SWINE GENETICS RESEARCHER-Holden Ruiz SWINE GENETICS RESEARCHER Work Phone: [facility] 03-23-2023 14:06-0400 Body mass index (BMI) [Ratio] 43.2 kg/m2 SWINE GENETICS RESEARCHER-Holden Ruiz SWINE GENETICS RESEARCHER Work Phone: [facility] 03-23-2023 14:06-0400 Body weight 110.67 kg SWINE GENETICS RESEARCHER-Holden Ruiz SWINE GENETICS RESEARCHER Work Phone: [facility] 03-23-2023 14:06-0400 Diastolic blood pressure 69 mm[Hg] SWINE GENETICS RESEARCHER-Holden Ruiz SWINE GENETICS RESEARCHER Work Phone: [facility] 03-23-2023 14:06-0400 Systolic blood pressure 110 mm[Hg] PARMINDER-Holden Ruiz SWINE GENETICS RESEARCHER Work Phone: [facility] 02-23-2023 13:14-0400 Body mass index (BMI) [Ratio] 43 kg/m2 SWINE GENETICS RESEARCHER-C Bird Ruiz SWINE GENETICS RESEARCHER Work Phone: [facility] 02-23-2023 13:14-0400 Body weight 110.22 kg SWINE GENETICS RESEARCHER-C Bird Ruiz SWINE GENETICS RESEARCHER Work Phone: [facility] 02-23-2023 13:14-0400 Diastolic blood pressure 80 mm[Hg] SWINE GENETICS RESEARCHER-C Bird Ruiz SWINE GENETICS RESEARCHER Work Phone: [facility] 02-23-2023 13:14-0400 Systolic blood pressure 112 mm[Hg] SWINE GENETICS RESEARCHER-C Bird Ruiz SWINE GENETICS RESEARCHER Work Phone: [facility] 02-13-2023 08:32-0400 Body mass index (BMI) [Ratio] 43.7 kg/m2 SWINE GENETICS RESEARCHER-C Bird Ruiz SWINE GENETICS RESEARCHER Work Phone: [facility] 02-13-2023 08:32-0400 Body temperature 98.4 [degF] SWINE GENETICS RESEARCHER-C Bird Ruiz SWINE GENETICS RESEARCHER Work Phone: [facility] 02-13-2023 08:32-0400 Body weight 112.09 kg SWINE GENETICS RESEARCHER-C Bird Ruiz SWINE GENETICS RESEARCHER Work Phone: [facility] 02-13-2023 08:32-0400 Diastolic blood pressure 84 mm[Hg] SWINE GENETICS RESEARCHER-C Bird Ruiz SWINE GENETICS RESEARCHER Work Phone: [facility] 02-13-2023 08:32-0400 Heart rate 80 /min SWINE GENETICS RESEARCHER-C Bird Ruiz SWINE GENETICS RESEARCHER Work Phone: [facility] 02-13-2023 08:32-0400 Respiratory rate 16 /min SWINE GENETICS RESEARCHER-C Bird Ruiz SWINE GENETICS RESEARCHER Work Phone: [facility] 02-13-2023 08:32-0400 SaO2% (BldA) [Mass fraction] 97 % SWINE GENETICS RESEARCHER-C Bird Ruiz SWINE GENETICS RESEARCHER Work Phone: [facility] 02-13-2023 08:32-0400 Systolic blood pressure 112 mm[Hg] SWINE GENETICS RESEARCHER-C Bird Ruiz SWINE GENETICS RESEARCHER Work Phone: [facility] 01-25-2023 10:49-0400 Body height 160.02 cm SWINE GENETICS RESEARCHER-C Bird Ruiz SWINE GENETICS RESEARCHER Work Phone: [facility] 01-25-2023 10:48-0400 Body mass index (BMI) [Ratio] 42.5 kg/m2 SWINE GENETICS RESEARCHER-C Bird Ruiz SWINE GENETICS RESEARCHER Work Phone: [facility] 01-25-2023 10:48-0400 Body weight 109.08 kg SWINE GENETICS RESEARCHER-C Bird Ruiz SWINE GENETICS RESEARCHER Work Phone: [facility] 01-25-2023 10:48-0400 Diastolic blood pressure 80 mm[Hg] SWINE GENETICS RESEARCHER-C Bird Ruiz SWINE GENETICS RESEARCHER Work Phone: [facility] 01-25-2023 10:48-0400 Systolic blood pressure 129 mm[Hg] SWINE GENETICS RESEARCHER-C Bird Ruiz SWINE GENETICS RESEARCHER Work Phone: [facility] Encounters Encounter Date Encounter Type Care Provider Facility Start: 01-30-2025 ambulatory Fadumo Anna lity:[facility] Start: 01-29-2025 End: 01-29-2025 ambulatory Bird Ruiz SWINE GENETICS RESEARCHER-C Work Phone: -[facility] Start: 01-29-2025 End: 01-29-[address] Fadumo Zelaya MD -[facility] Work Phone: Start: 01-22-2025 End: 01-22-[address] Fadumo Zelaya MD -[facility] Work Phone: Start: 01-22-2025 End: 01-22-2025 ambulatory Bird Ruiz SWINE GENETICS RESEARCHER-C Work Phone: -[facility] Start: 01-22-2025 End: 01-22-[address] Fadumo Zelaya MD -[facility] Work Phone: Start: 01-22-2025 End: 01-22-2025 ambulatory Fadumo Zelaya Facility:[facility] Start: 01-16-2025 End: 01-16-[address] Fadumo Zelaya MD -[facility] Work Phone: Start: 01-16-2025 End: 01-16-2025 ambulatory Bird Ruiz SWINE GENETICS RESEARCHER-C Work Phone: -[facility] Start: 01-16-2025 End: 01-16-2025 ambulatory Fadumo Zelaya Facility:[facility] Start: 01-13-2025 Non-patient / Non-visit Dr. Evelin Cardona DO [facility] Start: 01-13-2025 End: 01-13-2025 ambulatory Bird Ruiz SWINE GENETICS RESEARCHER-C Work Phone: -[facility] Start: 01-13-2025 End: 01-13-[address] Evelin Cardona DO [facility] Work Phone: Start: 01-08-2025 ambulatory Evelin Cardona cility:[facility] Start: 01-08-2025 Non-patient / Non-visit Dr. Evelin Cardona DO [facility] Start: 01-08-2025 End: 01-08-2025 Patient encounter procedure Anisa KEITAC -[facility] Work Phone: Start: 01-08-2025 End: 01-08-2025 ambulatory Bird Ruiz SWINE GENETICS RESEARCHER-C Work Phone: -[facility] Start: 01-08-2025 End: 01-08-[address] Fadumo Zelaya MD -Ultrasound [facility] Work Phone: Start: 01-08-2025 End: 01-08-2025 ambulatory Bird Ruiz SWINE GENETICS RESEARCHER-C Work Phone: -Ultrasound [facility] Start: 01-01-2025 End: 01-01-2025 ambulatory Bird Ruiz SWINE GENETICS RESEARCHER-C Work Phone: -Ultrasound [facility] Start: 01-01-2025 End: 01-01-2025 Patient encounter procedure Marietta Augie CNM -Ultrasound [facility] Work Phone: Start: 01-01-2025 End: 01-01-2025 ambulatory Marietta Ghosh Facility:[facility] Start: 12-26-2024 End: 12-26-[address] Fadumo Zelaya MD -[facility] Work Phone: Start: 12-26-2024 End: 12-26-2024 ambulatory Bird Ruiz SWINE GENETICS RESEARCHER-C Work Phone: -[facility] Start: 12-26-2024 End: 12-26-2024 ambulatory Fadumo Zelaya Facility:[facility] Start: 12-17-2024 End: 12-17-2024 ambulatory Bird Ruiz SWINE GENETICS RESEARCHER-C Work Phone: [facility] Work Phone: Start: 12-17-2024 End: 12-17-2024 Patient encounter procedure Marietta Ghosh CNM -Ultrasound [facility] Work Phone: Start: 12-16-2024 End: 12-16-[address] Sha Vaughan MD -[facility] Work Phone: Start: 12-16-2024 End: 12-17-2024 ambulatory Bird Ruiz SWINE GENETICS RESEARCHER-C Work Phone: [facility] Work Phone: Start: 12-11-2024 End: 12-11-2024 Patient encounter procedure Anisa Blackmon SWINE GENETICS RESEARCHER-C -[facility] Work Phone: Start: 12-11-2024 End: 12-11-2024 ambulatory Bird Ruiz SWINE GENETICS RESEARCHER-C Work Phone: [facility] Work Phone: Start: 12-01-2024 ambulatory Bird Ruiz Facility :[facility] Start: 11-13-2024 End: 11-13-2024 ambulatory BIRD RUIZ [facility] Start: 11-11-2024 End: 11-11-2024 Patient encounter procedure [facility] Work [facility] Start: 11-11-2024 End: 11-11-2024 ambulatory Bird Ruiz SWINE GENETICS RESEARCHER-C Work Phone: [facility] Work Phone: Start: 11-11-2024 End: 11-11-2024 ambulatory [facility] Facility:[facility] Start: 10-31-2024 End: 10-31-2024 Patient encounter procedure Marietta Ghosh CN -[facility] Work Phone: Start: 10-31-2024 End: 10-31-2024 ambulatory Marietta Ghosh Facility:[facility] Start: 10-02-2024 End: 10-02-2024 Patient encounter procedure Marietta Ghosh [facility] -[facility] Work Phone: Start: 10-02-2024 End: 10-02-2024 ambulatory Marietta Ghosh Facility:[facility] Start: 09-26-2024 ambulatory [facility] Facility :[facility] Start: 09-23-2024 End: 09-23-2024 ambulatory BIRD CERVANTES [facility] Start: 09-16-2024 End: 09-16-2024 ambulatory FADUMO ZELAYA [facility] Start: 08-27-2024 End: 08-27-[address] Fadumo Zelaya MD -[facility] Work Phone: Start: 08-27-2024 End: 08-27-2024 ambulatory Bird Ruiz Facility:[facility] Start: 08-01-2024 End: 08-01-[address] Fadumo Zelaya MD -[facility] Work Phone: Start: 08-01-2024 End: 08-01-2024 ambulatory Fadumo Zelaya Facility:[facility] Start: 07-21-2024 End: 07-21-2024 ambulatory BIRD CERVANTES [facility] Start: 07-21-2024 End: 07-21-2024 Patient encounter procedure Marietta Ghosh CNM -Lab, [facility] Start: 07-21-2024 End: 07-21-2024 ambulatory Marietta Ghosh Facility:[facility] Start: 07-03-2024 End: 07-03-2024 ambulatory Marietta Ghosh Facility:[facility] Start: 07-03-2024 End: 07-03-2024 ambulatory Marietta Ghosh Facility:[facility] Start: 06-13-2024 End: 06-13-2024 ambulatory BIRD CERVANTES [facility] Start: 06-13-2024 End: 06-13-2024 Encounter for general adult medical examination with abnormal findings BIRD CERVANTES [facility] Start: 03-11-2024 End: 03-11-2024 ambulatory Arturo LEBLANC Facility:[facility] Start: 08-22-2023 Non-patient / Non-visit SWINE GENETICS RESEARCHER-C Bird Ruiz SWINE GENETICS RESEARCHER Work Phone: [facility] Start: 08-21-2023 Non-patient / Non-visit SWINE GENETICS RESEARCHER-C Bird Ruiz SWINE GENETICS RESEARCHER Work Phone: [facility] Start: 08-20-2023 Non-patient / Non-visit SWINE GENETICS RESEARCHER-C Bird Ruiz SWINE GENETICS RESEARCHER Work Phone: [facility] Start: 08-20-2023 End: 08-22-2023 Evaluation and management of inpatient SWINE GENETICS RESEARCHER-C Bird Ruiz SWINE GENETICS RESEARCHER [facility] Work [facility]: Start: 08-17-2023 End: 08-17-2023 ambulatory SWINE GENETICS RESEARCHER-C Bird Ruiz SWINE GENETICS RESEARCHER Work Phone: [facility] Work Phone: Start: 08-17-2023 End: 08-17-2023 Patient encounter procedure SWINE GENETICS RESEARCHER-C Bird Ruiz SWINE GENETICS RESEARCHER Work Phone: [facility] Work Phone: Start: 08-14-2023 End: 08-14-2023 Patient encounter procedure SWINE GENETICS RESEARCHER-Holden Ruiz SWINE GENETICS RESEARCHER Work Phone: [facility] Work Phone: Start: 08-10-2023 End: 08-10-2023 Patient encounter procedure SWINE GENETICS RESEARCHER-Holden Ruiz SWINE GENETICS RESEARCHER Work Phone: [facility] Work Phone: Start: 08-07-2023 End: 08-07-2023 ambulatory SWINE GENETICS RESEARCHER-C Bird Ruiz SWINE GENETICS RESEARCHER Work Phone: [facility] Work Phone: Start: 08-07-2023 End: 08-07-2023 Patient encounter procedure SWINE GENETICS RESEARCHER-C Bird Ruiz SWINE GENETICS RESEARCHER Work Phone: [facility]Laboratory[facility] Specimen Work Phone: Start: 08-07-2023 End: 08-07-2023 Patient encounter procedure SWINE GENETICS RESEARCHER-C Bird Ruiz SWINE GENETICS RESEARCHER Work Phone: [facility] Work Phone: Start: 08-03-2023 End: 08-03-2023 ambulatory SWINE GENETICS RESEARCHER-C Bird Ruiz SWINE GENETICS RESEARCHER Work Phone: [facility] Work Phone: Start: 08-03-2023 End: 08-03-2023 Patient encounter procedure SWINE GENETICS RESEARCHER-Holden Ruiz SWINE GENETICS RESEARCHER Work Phone: [facility] Work Phone: Start: 07-31-2023 End: 07-31-2023 Patient encounter procedure SWINE GENETICS RESEARCHER-Holden Ruiz SWINE GENETICS RESEARCHER Work Phone: [facility] Work Phone: Start: 07-27-2023 End: 07-27-2023 Patient encounter procedure SWINE GENETICS RESEARCHER-Holden Ruiz SWINE GENETICS RESEARCHER Work Phone: [facility] Work Phone: Start: 07-25-2023 Non-patient / Non-visit SWINE GENETICS RESEARCHER-C Bird Ruiz SWINE GENETICS RESEARCHER Work Phone: [facility] Start: 07-25-2023 End: 07-25-2023 ambulatory SWINE GENETICS RESEARCHER-C Bird Ruiz SWINE GENETICS RESEARCHER Work Phone: [facility] Work Phone: Start: 07-25-2023 End: 07-25-2023 Patient encounter procedure SWINE GENETICS RESEARCHER-C Bird Ruiz SWINE GENETICS RESEARCHER [facility] Work Phone: Start: 07-24-2023 End: 07-24-2023 ambulatory SWINE GENETICS RESEARCHER-C Bird Ruiz SWINE GENETICS RESEARCHER Work Phone: [facility] Work Phone: Start: 07-24-2023 End: 07-24-2023 Patient encounter procedure SWINE GENETICS RESEARCHER-C Bird Ruiz SWINE GENETICS RESEARCHER Work Phone: [facility] Work Phone: Start: 07-24-2023 End: 07-24-2023 Patient encounter procedure SWINE GENETICS RESEARCHER-C Bird Ruiz SWINE GENETICS RESEARCHER Work Phone: [facility] Work Phone: Start: 07-17-2023 End: 07-17-2023 Patient encounter procedure SWINE GENETICS RESEARCHER-C Bird Ruiz SWINE GENETICS RESEARCHER Work Phone: [facility] Work Phone: Start: 07-13-2023 End: 07-13-2023 Patient encounter procedure SWINE GENETICS RESEARCHER-C Bird Ruiz SWINE GENETICS RESEARCHER Work Phone: [facility] Work Phone: Start: 07-06-2023 End: 07-06-2023 ambulatory SWINE GENETICS RESEARCHER-C Bird Ruiz SWINE GENETICS RESEARCHER Work Phone: [facility] Work Phone: Start: 07-06-2023 End: 07-06-2023 Patient encounter procedure SWINE GENETICS RESEARCHER-C Bird Ruiz SWINE GENETICS RESEARCHER Work Phone: [facility] Work Phone: Start: 06-22-2023 End: 06-22-2023 Patient encounter procedure SWINE GENETICS RESEARCHER-C Bird Riuz SWINE GENETICS RESEARCHER Work Phone: [facility] Work Phone: Start: 06-20-2023 End: 06-20-2023 ambulatory SWINE GENETICS RESEARCHER-C Bird Ruiz SWINE GENETICS RESEARCHER Work Phone: [facility] Work Phone: Start: 06-20-2023 End: 06-20-2023 Patient encounter procedure SWINE GENETICS RESEARCHER-C Bird Ruiz SWINE GENETICS RESEARCHER Work Phone: [facility] Work Phone: Start: 06-14-2023 End: 06-14-2023 ambulatory SWINE GENETICS RESEARCHER-C Bird Ruiz SWINE GENETICS RESEARCHER Work Phone: [facility] Work Phone: Start: 06-14-2023 End: 06-14-2023 Patient encounter procedure SWINE GENETICS RESEARCHER-C Bird Ruiz SWINE GENETICS RESEARCHER Work Phone: [facility]Ul[facility]ound, [facility] Work Phone: Start: 06-06-2023 End: 06-06-2023 Patient encounter procedure SWINE GENETICS RESEARCHER-C Bird Ruiz SWINE GENETICS RESEARCHER Work Phone: [facility] Work Phone: Start: 05-18-2023 End: 05-18-2023 Patient encounter procedure SWINE GENETICS RESEARCHER-C Bird Ruiz SWINE GENETICS RESEARCHER Work Phone: [facility] Work Phone: Start: 05-11-2023 End: 05-11-2023 Patient encounter procedure SWINE GENETICS RESEARCHER-C Bird Ruiz SWINE GENETICS RESEARCHER Work Phone: [facility] Work Phone: Start: 04-12-2023 End: 04-12-2023 ambulatory SWINE GENETICS RESEARCHER-C Bird Ruiz SWINE GENETICS RESEARCHER Work Phone: [facility] Work Phone: Start: 04-12-2023 End: 04-12-2023 Patient encounter procedure SWINE GENETICS RESEARCHER-C Bird Ruiz SWINE GENETICS RESEARCHER Work Phone: [facility] Work Phone: Start: 03-23-2023 End: 03-23-2023 Patient encounter procedure SWINE GENETICS RESEARCHER-C Bird Ruiz SWINE GENETICS RESEARCHER Work Phone: [facility]Labor[facility] Work Phone: Start: 03-23-2023 End: 03-23-2023 Patient encounter procedure SWINE GENETICS RESEARCHER-C Bird Ruiz SWINE GENETICS RESEARCHER Work Phone: [facility] Work Phone: Start: 02-23-2023 End: 02-23-2023 Patient encounter procedure SWINE GENETICS RESEARCHER-C Bird Ruiz SWINE GENETICS RESEARCHER Work Phone: [facility] Work Phone: Start: 02-13-2023 End: 02-13-2023 Patient encounter procedure SWINE GENETICS RESEARCHER-C Bird Ruiz SWINE GENETICS RESEARCHER Work Phone: [facility] Work Phone: Start: 02-08-2023 End: 02-08-2023 ambulatory SWINE GENETICS RESEARCHER-C Bird Ruiz SWINE GENETICS RESEARCHER Work Phone: [facility] Work Phone: Start: 02-08-2023 End: 02-08-2023 Patient encounter procedure SWINE GENETICS RESEARCHER-C Bird Ruiz SWINE GENETICS RESEARCHER Work Phone: [facility] Start: 01-25-2023 End: 01-25-2023 ambulatory SWINE GENETICS RESEARCHER-C Bird Ruiz SWINE GENETICS RESEARCHER Work Phone: [facility] Work Phone: Start: 01-25-2023 End: 01-25-2023 Patient encounter procedure SWINE GENET[employer] RESEARCHER-C Bird Ruiz SWINE GENETICS RESEARCHER Work Phone: [facility] Work Phone: Start: 01-25-2023 End: 01-25-2023 Patient encounter procedure SWINE GENETICS RESEARCHER-C Bird Ruiz SWINE GENETICS RESEARCHER Work Phone: [facility] Work Phone: Start: 08-14-2017 Ambulatory Sukumar Joya Facil ity:[facility] Start: 07-31-2017 Ambulatory Sukumar Joya Facil ity:[facility] Start: 06-05-2017 Ambulatory CAROLYNE Bennetti ty:UNI Start: 04-02-2017 Ambulatory Michelle Roberts Facilit y:[facility] Procedures Date Procedure Procedure Detail Performing [...] biophysical profile without non-stress testing Bird Ruiz SWINE GENETICS RESEARCHER-C Work Phone: Start: 01-01-2025 Ultrasonography for biophysical profile without non-stress testing Bird Ruiz SWINE GENETICS RESEARCHER-C Work Phone: Start: 12-17-2024 Ultrasound scan for growth Bird Ruiz SWINE GENETICS RESEARCHER-C Work Phone: Start: 11-11-2024 Serologic test for syphilis Bird Ruiz SWINE GENETICS RESEARCHER-C Work Phone: Start: 07-21-2024 Hepatitis B surface antigen measurement Bird Ruiz SWINE GENETICS RESEARCHER-C Work Phone: Start: 07-21-2024 Hepatitis C antibody measurement Bird Ruiz SWINE GENETICS RESEARCHER-C Work Phone: Comment on above: Non Reactive: < 0.8 Equivocal: >/= 0.8 to < 1.0 Reactive: >/= 1.0The [facility] requires that a reactive/equivocal HCV antibody result be sent out for confirmation. HCV Quant by PCR testing. Start: 07-21-2024 Measurement of 3,4-methylenedioxymethamph etamine in urine Bird Ruiz SWINE GENETICS RESEARCHER-C Work Phone: Start: 07-21-2024 Measurement of renal function Bird Ruiz SWINE GENETICS RESEARCHER-C Work Phone: Comment on above: GFR Calc Start: 07-21-2024 Methadone measuremen t, urine Bird Ruiz SWINE GENETICS RESEARCHER-C Work Phone: Start: 07-21-2024 Procedure Bird B yler SWINE GENETICS RESEARCHER-C Work Phone: Start: 07-21-2024 Rubella IgG measurement Bird Ruiz SWINE GENETICS RESEARCHER-C Work Phone: Comment on above: Antibody Results Int erpretation of Immune Status Non Reactive Presumed Non-Immune Equivocal Equivocal Reactive Presumed Immune Start: 07-21-2024 Urine barbiturate measurement Bird Ruiz SWINE GENETICS RESEARCHER-C Work Phone: Start: 08-17-2023 Ultrasonography for biophysical profile without non-stress testing [employer] RESEARCHER-C Bird Ruiz SWINE GENETICS RESEARCHER Work Phone: Start: 08-07-2023 Bacterial nucleic ac id assay [employer] RESEARCHER-C Bird Donnellyler SWINE GENETICS RESEARCHER Work Phone: Start: 08-07-2023 Chlamydia trachomati s (PCR) [employer] RESEARCHER-C Bird Donnellyler SWINE GENETICS RESEARCHER Work Phone: Start: 08-03-2023 Group B Streptococcu s Culture [employer] RESEARCHER-C Bird Donnellyler SWINE GENETICS RESEARCHER Work Phone: Start: 08-03-2023 Ultrasound scan for growth [employer] RESEARCHER-C Bird Donnellyler SWINE GENETICS RESEARCHER Work Phone: Start: 07-24-2023 Urine culture SWINE GENET[employer] RESEARCHER-C Charanjit waters Joseph SWINE GENETICS RESEARCHER Work Phone: Start: 07-06-2023 Ultrasonography for biophysical profile without non-stress testing SW[employer] RESEARCHER-C Bird Joseph SWINE GENETICS RESEARCHER Work Phone: Start: 06-20-2023 US scan of gallbladder SW[employer] RESEARCHER-C Bird Joseph SWINE GENETICS RESEARCHER Work Phone: Start: 06-14-2023 US urinary tract SW[employer] RESEARCHER-C Bartolo george Ruiz SWINE GENETICS RESEARCHER Work Phone: Start: 04-12-2023 Ultrasonography in f irst trimester SW[employer] RESEARCHER-C Bird Donnellyler SWINE GENETICS RESEARCHER Work Phone: Start: 01-25-2023 Urine culture SW[employer] RESEARCHER-C Charanjit waters Joseph SWINE GENETICS RESEARCHER Work Phone: Start: 01-25-2023 Transvaginal obstetr ic ultrasonography SW[employer] RESEARCHER-C Bird Joseph SWINE GENETICS RESEARCHER Work Phone: H/O: section Previous c esarean section Bird Ruiz SWINE GENETICS RESEARCHER-C Work Phone: H/O: section Previous c esarean section Dr. Fadumo Zelaya MD H/O: section Previous c esarean section Dr. Fadumo Zelaya MD H/O: section Previous c esarean section Marietta Ghosh CNM H/O: section Previous c esarean section Marietta Ghosh CNM H/O: section Previous c esarean section Marietta Ghosh CNM H/O: section Previous c esarean section Anisa Blackmon SWINE GENETICS RESEARCHER-C H/O: section Previous c esarean section Dr. Fadumo Zelaya MD H/O: section Previous c esarean section Anisa Blackmon SWINE GENETICS RESEARCHER-C H/O: section Previous c esarean section Dr. Evelin Cardona DO H/O: section Previous c esarean section Dr. Evelin Cardona DO H/O: section Previous c esarean section Dr. Fadumo Zelaya MD H/O: section Previous c esarean section Dr. Fadumo Zelaya MD H/O: section Previous c esarean section Dr. Fadumo Zelaya MD Plan of Treatment Date Care Activity Detail Author Start: 01-22-2025 Biophysical profile panel [facility] Start: 01-22-2025 Ultrasonography for biophysical profile without non-stress testing OB Biophysical Prof W/O NST [facility] Start: 01-13-2025 Nonstress test [facility] Start: 01-13-2025 Obstetric monitoring [facility] Start: 01-13-2025 [facility] Start: 01-13-2025 Vital signs measurements [facility] Start: 01-08-2025 Nonstress test [facility] Start: 01-08-2025 Obstetric monitoring [facility] Start: 01-08-2025 [facility] Start: 01-08-2025 Vital signs measurements [facility] Start: 01-08-2025 Biophysical profile panel [facility] Start: 01-08-2025 Ultrasonography for biophysical profile without non-stress testing OB Biophysical Prof W/O NST [facility] Start: 01-08-2025 Patient discharge [facility] Start: 12-26-2024 CBC W Auto Differential panel - Blood [facility] Start: 12-26-2024 Comprehensive metabolic 2000 panel - Serum or Plasma [facility] Start: 11-11-2024 CBC W Auto Differential panel - Blood [facility] Start: 11-11-2024 Measurement of glucose 2 hours after glucose challenge for glucose tolerance test [facility] Start: 11-11-2024 Serologic test for syphilis [facility] Start: 11-11-2024 [facility] Start: 11-11-2024 Patient referral [facility] Work Phone: Start: 08-22-2023 Patient discharge [facility] Start: 08-21-2023 [facility] Start: 08-21-2023 Application of abdominal corset [facility] Start: 08-20-2023 Administration of medication [facility] Start: 08-20-2023 Ambulation therapy management [facility] Start: 08-20-2023 Application of device [facility] Start: 08-20-2023 End: 08-20-2023 Application of intermittent pneumatic compression device [facility] Start: 08-20-2023 Assessment of risk of venous thromboembolism [facility] Start: 08-20-2023 Catheterization of vein [facility] Start: 08-20-2023 Deep breathing and coughing exercises [facility] Start: 08-20-2023 Exercises [facility] Start: 08-20-2023 Measuring intake and output [facility] Start: 08-20-2023 Notification of physician [facility] Start: 08-20-2023 Procedure discontinued [facility] Start: 08-20-2023 Provision of activity privileges [facility] Start: 08-20-2023 Skin care [facility] Start: 08-20-2023 Vital signs measurements [facility] Start: 08-20-2023 Wound care [facility] Start: 08-20-2023 [facility] Start: 08-20-2023 Application of abdominal corset [facility] Start: 08-20-2023 section Primary C Section (Not Applicable) [facility] Start: 08-20-2023 Admission procedure [facility] Start: 08-20-2023 Consultation [facility] Start: 08-17-2023 biophysical profile w/o non-stress testing BIOPHYS PROFIL W/O NST [facility] Start: 07-25-2023 Nonstress test [facility] Start: 07-25-2023 Obstetric monitoring [facility] Start: 07-25-2023 Vital signs measurements [facility] Start: 07-25-2023 [facility] Start: 07-25-2023 Patient discharge [facility] Start: 07-24-2023 [facility] Start: 07-24-2023 Bacteria identified in Urine by Culture [facility] Alanine aminotransfe rase [Enzymatic activity/volume] in Serum or Plasma [facility] Albumin [Mass/volume ] in Serum or Plasma [facility] Alkaline phosphatase [Enzymatic activity/volume] in Serum or Plasma [facility] Anion gap in Serum o r Plasma [facility] Bilirubin, total measurement [facility] BUN/Creatinine ratio [facility] Calcium [Mass/volume ] in Serum or Plasma [facility] Carbon dioxide, tota l [Moles/volume] in Central venous blood [facility] CBC W Auto Different ial panel - Blood [facility] CBC W Auto Different ial panel - Blood [facility] Comprehensive metabo lic 2000 panel - Serum or Plasma [facility] Creatinine [Mass/vol ume] in Serum or Plasma [facility] Erythrocyte mean corpuscular volume determination [facility] Erythrocyte mean corpuscular volume determination [facility] Biophysical pr ofile panel US [facility] Glucose [Mass/volume ] in Serum or Plasma [facility] Glucose [Mass/volume ] in Serum or Plasma --1 hour post 50 g glucose PO [facility] Hematocrit [Volume Fraction] of Blood [facility] Hematocrit [Volume Fraction] of Blood [facility] Hemoglobin [Mass/vol ume] in Blood [facility] Hemoglobin [Mass/vol ume] in Blood [facility] Hepatitis B surface antigen measurement [facility] Hepatitis C antibody measurement [facility] HIV 1+2 Ab+HIV1 p24 Ag [Presence] in Serum or Plasma by Immunoassay [facility] Leukocytes [#/volume ] in Blood [facility] Leukocytes [#/volume ] in Blood [facility] Mean corpuscular hem oglobin concentration determination [facility] Mean corpuscular hem oglobin concentration determination [facility] Mean corpuscular hem oglobin determination [facility] Mean corpuscular hem oglobin determination [facility] Measurement of renal function [facility] Neutrophil count [facility] Neutrophil count [facility] Neutrophil percent differential count [facility] Neutrophil percent differential count [facility] Patient Education Kick Counts ED False Labor OB Triage: Return to Hospital or Notify Physician if you Experience: [facility] Work Phone: Patient referral [facility] Work Phone: Platelets [#/volume] in Blood [facility] Platelets [#/volume] in Blood [facility] Potassium measurement [facility] Protein/Creatinine [ Ratio] in Urine [facility] Protein/Creatinine [ Ratio] in Urine [facility] Red blood cell count [facility] Red blood cell count [facility] Red cell distributio n width determination [facility] Red cell distributio n width determination [facility] Rubella IgG measurement [facility] Serum chloride measurement [facility] Sodium measurement [facility] Streptococcus agalac tiae [Presence] in Unspecified specimen by Organism specific culture [facility] Total protein measurement [facility] Treponema sp Ab [Pre sence] in Serum [facility] Ultrasound scan for growth [facility] Ultrasound scan for growth [facility] Ultrasound scan for growth [facility] Urea nitrogen [Mass/ volume] in Serum or Plasma [facility] Immunizations Immunization Date Immunization Notes Care Provider Shikha pérez 12-11-2024 tetanus toxoid, redu thomas diphtheria toxoid, and acellular pertussis vaccine, adsorbed Bird Ruiz SWINE GENETICS RESEARCHER-C Work Phone: [facility] 06-06-2023 influenza, injectabl e, quadrivalent, preservative free [employer] RESEARCHER-C Bird Ruiz SWINE GENETICS RESEARCHER Work Phone: [facility] 06-06-2023 tetanus toxoid, redu thomas diphtheria toxoid, and acellular pertussis vaccine, adsorbed SWINE GENET[employer] RESEARCHER-C Bird Ruiz SWINE GENETICS RESEARCHER Work Phone: [facility] 05-24-2020 tetanus toxoid, redu thomas diphtheria toxoid, and acellular pertussis vaccine, adsorbed SWINE GENETICS RESEARCHER-C Bird Ruiz SWINE GENETICS RESEARCHER Work Phone: [facility] 03-24-2020 influenza, injectable,quadrivalent , preservative free, pediatrics physician-C Bidr Ruiz SWINE GENETICS RESEARCHER Work Phone: [facility] Payers Date Payer Category Payer Medicaid [id number] 2024 Private Health Insurance [id number] 2024 Self-pay [id number] 2016 Unknown [id number] 2000 Unknown [id number] 2.16.840.1.142739.3.579.2.651 2000 Unknown [id number] 2.16.840.1.736557.3.579.2.651 2000 Unknown [id number] 2.16.840.1.796181.3.579.2.479 2000 Unknown [id number] 2.16.840.1.831300.3.579.2.479 Unknown [id number] Unknown [facility] [id number] Unknown [facility] PACKAGE PLAN . [id number] Unknown [id number] 2.16.840.1.887555.3.579.2.462 Unknown [id number] 2.16.840.1.588857.3.579.2.462 Unknown [id number] 2.16.840.1.290613.3.579.2.462 Unknown [id number] 2.16.840.1.117044.3.579.2.462 Unknown [id number] 2.16.840.1.227605.3.579.2.462 Unknown [id number] 2.16.840.1.847271.3.579.2.462 Unknown [id number] 2.16.840.1.620000.3.579.2.462 Unknown [id number] 2.16.840.1.344925.3.579.2.462 Unknown [id number] 2.16.840.1.694252.3.579.2.462 Unknown [id number] 2.840.1.762360.3.579.2.462 Unknown [id number] 2.840.1.615037.3.579.2.462 Unknown [id number] 2.840.1.712783.3.579.2.462 Unknown [id number] 2.840.1.436133.3.579.2.462 Unknown [id number] 2.840.1.779838.3.579.2.462 Unknown [id number] 2.840.1.429877.3.579.2.462 Unknown [id number] 2.840.1.705638.3.579.2.462 Unknown [id number] 2.840.1.204130.3.579.2.462 Unknown [id number] 2.840.1.640986.3.579.2.462 Unknown [id number] 2.840.1.653904.3.579.2.462 Unknown [id number] 2.840.1.728176.3.579.2.462 Unknown [id number] 2.840.1.674363.3.579.2.462 Unknown [id number] 2.840.1.761458.3.579.2.462 Unknown [id number] 2.16.840.1.690299.3.579.2.462 Unknown [id number] 2.840.1.102802.3.579.2.462 Unknown [id number] 2.16.840.1.172565.3.579.2.462 Unknown [id number] 2.16.840.1.927954.3.579.2.462 Unknown [id number] 2.16.840.1.652348.3.579.2.462 Unknown [id number] 2.16.840.1.827368.3.579.2.462 Social History Date Type Detail Facility Start: 01-25-2023 End: 08-20-2023 Tobacco smoking status MNIS Unknown if ever smoked [facility] Start: 04-23-2020 None [facility] Start: 2000 Sex Assigned At Female [facility] Start: 06-30-2024 Tobacco smoking stat us [facility] Ex-smoker (finding) [facility] Medical Equipment Procedure Code Equipment Code Equipment [...] 08-22-2023 Cognitive function Awake;Alert;A ppropriate;Fol lows Commands [facility] Work Phone: Clinical Notes 01-25-2023 to 01-26-2025 Note Date & Type Note Facility 01-26-2025 Radiology Diagnostic study note [facility] Imaging Services [address] [place] [address] OB Biophysical Prof W/O NST MR#: [id number] Acct: [id number] Name: AZAEL SULTANA Rep #: [id number] : 2000 F 24 From: Guille Eugene MD PCP: MING Sagastume Status: REG C DEREK Study:OB Biophysical Prof W/O NST Date of Exa m: 01/22/25 Exam# [id number] Ordering Dr: Fadumo Zhang MD PROCEDURE: OB [...] with a score of 8/8. Reading Location: [id number] CC: SWINE GENETICS RESEARCHER-C Bird Ruiz; Dr. Fadumo Zelaya MD ~ Legal Specialist: Signed [facility] 01-21-2025 Radiology Diagnostic study note [facility] Imaging Services [address] [place], [place] [id number] OB Limited With Biometrics MR#: [id number] Acct: [id number] Name: AZAEL SULTANA Rep #: [id number] : 2000 F 24 From: Zahra Puckett MD PCP: MING Sagastume Status: REG C DEREK Study:OB Limited With Biometrics Date of Exam : 01/16/25 Exam# [id number] Ordering Dr: Marietta Ghosh CNM PROCEDURE: OB [...] LILLY CC: RACHAEL Ghosh; MING Ruiz ~ Legal Specialist: Signed [facility] 01-16-2025 Progress note [facility] 01-16-2025 Progress note Note Date/Time January 16, 2025 4:31pm [facility] [address], [address] [place] [address] OFFICE VISIT Date of Service: 01/16/25 MR#: [id number] Acct: [id number] Name: AZAEL SULTANA Rep #: [id number] : 2000 Provider: Dr. Reddy Zelaya MD Age/Sex: 24/F Location[place] [facility] Status: Signed Intake Vital Signs 12/11/24 15:58 01/13/25 19:19 01/16/25 16:03 01/16/25 16:07 Height 5 ft 3 in 5 ft 3 in 5 ft 3 in 5 ft 3 in Weight: 272 lb 2 oz BMI 48.2 BP 121/83 H Intake Visit Reasons: 37wk ob *csection Chief Complaint: 37 Week OB Belt Notcher Required: No Is patient in pain?: No Allergies adhesive tape Allergy (Mild, Verified 01/16/25 16:02) Rash Medications ?Medication ?Instructions ?Recorded ?Confirmed ?Type multivit-min no.71-iron fum 28 300 cap PO DAILY pregna ncy 01/11/23 01/16/25 History mg-folate no.1 1 mg-dha 300 mg capsule (PNV-[place]) ondansetron 4 mg disintegrating 4 mg PO Q4H PRN nausea and 06/18/24 01/16/25 Rx tablet vomiting #60 tabs metoclopramide HCl 10 mg tablet 10 mg PO TID nausea #9 0 tabs 08/27/24 01/16/25 Rx (Reglan) 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 sensor (FreeStyle #1 ea 12/03/24 5 Rx Dot 3 Sensor device) 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 current occupational exposures/hazards: No pets and animals: [...] physical activity do you participate in: none matt/restoration: None seatbelt use: always do you feel safe at home: Yes additional social history: Patient works at [employer]- Works at [employer] History 4 Elective abortions Hx Para 2 Spontaneous abortions 1 Hx # Term Pregnancies 2 Ectopic pregnancies Hx # Pregnancies Multiple births # of living children 2 Past Pregnancies Del. Date Name GA/Weeks Outcome Route Bth Weight Infant Gen Labor Lgth Anesthesia Del Locatn Provider FOB 07/20/20 Andre 37 live - full term vacuum 8# 11oz Male [facility] Alex 08/20/23 Radames Elizondo 38 live - full term 7lbs 8oz Male [facility] SM Delivery Date: 07/20/20 Last Updated [...] 4 weeks- requesting to do them at [facility] because insurance lapsed. 10/31/24 -?-?-?-?-?-?-?-?-?-?-?-?- 26w [...] Cosigner Signature: Date (if applicable) CC: ~ [facility] [employer] Work Phone: 1(518) 687-138607-10-2025 Radiology Diagnostic study note [facility] Imaging Services [address] [place] [address] OB Biophysical Prof W/O NST MR#: [id number] Acct: [id number] Name: AZAEL SULTANA Rep #: [id number] : 2000 F 24 From: Guille Eugene MD PCP: MING Sagastume Status: REG C DEREK Study:OB Biophysical Prof W/O NST Date of Exa m: 01/08/25 Exam# [id number] Ordering Dr: Fadumo Zhang MD PROCEDURE: OB [...] biophysical profile score of 8/8 Reading Location: [facility] CC: MING Ruiz; Dr. Fadumo Zelaya MD ~ Legal Specialist: Signed [facility]07-06-2025 Radiology Diagnostic study note [facility] Imaging Services [address] [place] [address] OB Biophysical Prof W/O NST MR#: [id number] Acct: [id number] Name: AZAEL SULTANA Rep #: [id number] : 2000 F 24 From: Pet Peer DO PCP: MING Sagastume Status: REG C LI Study:OB Biophysical Prof W/O NST Date of Exa m: 01/01/25 Exam# [id number] Ordering Dr: Fadumo Zhang MD PROCEDURE: OB [...] IMPRESSION: Biophysical profile score: 8/8 Reading Location: [facility] CC: MING Ruiz; Dr. Fadumo Zelaya MD ~ Legal Specialist: Signed [facility]06-27-2025 Progress [facility] [address], [address] [place] [address] OFFICE VISIT Date of Service: 12/26/24 MR#: [id number] Acct: [id number] Name: AZAEL SULTANA Rep #: [id number] : 2000 Provider: Dr. Reddy Zelaya MD Age/Sex: 24/F Location: [facility] Status: Signed Intake Vital Signs 07/03/24 13:01 12/16/24 10:39 12/26/24 14:26 12/26/24 14:28 Height 5 ft 3 in 5 ft 3 in 5 ft 3 in 5 ft 3 in Weight: 264 lb 6 oz BMI 46.8 BP 138/82 H Intake Visit Reasons: 34 WK OB Belt Notcher Required: No Is patient in pain?: No Allergies adhesive tape Allergy (Mild, Verified 12/26/24 14:26) Rash Medications ?Medication ?Instructions ?Recorded ?Confirmed ?Type multivit-min no.71-iron fum 28 300 cap PO DAILY pregna ncy 01/11/23 12/26/24 History mg-folate no.1 1 mg-dha 300 mg capsule (PNV-[place]) ondansetron 4 mg disintegrating 4 mg PO Q4H PRN nausea and 06/18/24 12/26/24 Rx tablet vomiting #60 tabs metoclopramide HCl 10 mg tablet 10 mg PO TID nausea #9 0 tabs 08/27/24 12/26/24 Rx (Reglan) 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 sensor (FreeStyle #1 ea 12/03/24 5 Rx Dot 3 Sensor device) 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 current occupational exposures/hazards: No pets and animals: [...] physical activity do you participate in: none matt/restoration: None seatbelt use: always do you feel safe at home: Yes additional social history: Patient works at [employer]- Works at [employer] History 4 Elective abortions Hx Para 2 Spontaneous abortions 1 Hx # Term Pregnancies 2 Ectopic pregnancies Hx # Pregnancies Multiple births # of living children 2 Past Pregnancies Del. Date Name GA/Weeks Outcome Route Bth Weight Gen Labor Lgth Anesthesia Del Locatn Provider FOB 07/20/20 Andre 37 live - full term vacuum 8# 11oz Male [facility] Alex 08/20/23 Radameslizz Elizondo 38 live [...] 4 weeks- requesting to do them at [facility] because insurance lapsed. 10/31/24 -?-?-?-?-?-?-?-?-?-?-?-?- 26w [...] on 12/26/24 14: 39 Off Ur Spec [place] 1.025 Last Edit by Maribel Crisostomo on [...] irena LUNA> Date _ [facility] Signature: Date (if applicable) CC: ~ [facility]06-27-2025 Progress note Author Fadumo Zelaya [facility] Services Note Date/Time December 26, 2024 2:49 pm [facility] [address], [address] [place] [address] OFFICE VISIT Date of Service: 12/26/24 MR#: [id number] Acct: [id number] Name: KAYYAZAEL MUÑOZ Rep #: [id number] : 2000 Provider: Dr. Reddy Zelaya MD Age/Sex: 24/F [place] [facility] [place]: Signed Intake Vital Signs 07/03/24 13:01 12/16/24 10:39 12/26/24 14:26 06/27/25 14:28 Height 5 ft 3 in 5 ft 3 in 5 ft 3 in 5 ft 3 in Weight: 264 lb 6 oz BMI 46.8 BP 138/82 H Intake Visit Reasons: 34 WK OB Belt Notcher Required: No Is patient in pain?: No Allergies adhesive tape Allergy (Mild, Verified 12/26/24 14:26) Rash Medications ?Medication ?Instructions ?Recorded ?Confirmed ?Type multivit-min no.71-iron fum 28 300 cap PO DAILY pregna ncy 01/11/23 12/26/24 History mg-folate no.1 1 mg-dha 300 mg capsule (PNV-[place]) ondansetron 4 mg disintegrating 4 mg PO Q4H PRN nausea and 06/18/24 12/26/24 Rx tablet vomiting #60 tabs metoclopramide HCl 10 mg tablet 10 mg PO TID nausea #9 0 tabs 08/27/24 12/26/24 Rx (Reglan) 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 sensor (FreeStyle #1 ea 12/03/24 5 Rx Dot 3 Sensor device) 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,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,cont #1 ea 12/03/24 12/26/24 Rx (FreeStyle Dot 3 [place]) metformin 1,000 mg tablet 1,000 mg PO [...] 2 current occupational status: employed current occupation: [employer] current occupational exposures/hazards: No pets and [...] physical activity do you participate in: none matt/restoration: None seatbelt use: always do you feel safe at home: Yes additional social history: Patient works at [employer]- Works at [employer] History 4 Elective abortions Hx Para 2 Spontaneous abortions 1 Hx # Term Pregnancies 2 Ectopic pregnancies Hx # Pregnancies Multiple births # of living children 2 Past Pregnancies Del. Date Name GA/Weeks Outcome Route Bth Weight Gen Labor Lgth Anesthesia Del Locatn Provider FOB 07/20/20 Andre 37 live - full term vacuum 8# 11oz Male [facility] Alex 08/20/23 Radames Elizondo 38 live [...] 4 weeks- requesting to do them at [facility] because insurance lapsed. 10/31/24 -?-?-?-?-?-?-?-?-?-?-?-?- 26w [...] on 12/26/24 14: 39 Off Ur Spec [place] 1.025 Last Edit by Maribel Crisostomo on [...] Cosigner Signature: Date (if applicable) CC: ~ [facility] [employer] [facility] Work Phone: 1(258) 549-461306-19-2025 Radiology Diagnostic study note [facility] Imaging Services [address] [place] [address] [id number] OB Limited With Biometrics MR#: [id number] Acct: [id number] Name: AZAEL SULTANA Rep #: [id number] : 2000 F 24 From: Guille Eugene MD PCP: MING Sagastume Status: REG C DEREK Study:OB Limited With Biometrics Date of Exam : 12/17/24 Exam# [id number] Ordering Dr: Marietta Ghosh CNM PROCEDURE: OB [...] of 33 weeks and 3days. Reading Location: [place] [address] CC: RACHAEL Ghosh; MING Ruiz ~ Legal Specialist: Signed [facility]06-12-2025 Progress [facility] Women's [address], [address] [place] [address] OFFICE VISIT Date of Service: 12/11/24 MR#: [id number] Acct: [id number] Name: AZAEL SULTANA Rep #: [id number] : 2000 Provider: MING Blackmon Age/Sex: 24/F [place] [facility]: Signed Intake Vital Signs 07/03/24 13:01 11/11/24 15:03 12/11/24 15:51 12/11/24 15:58 Height 5 ft 3 in 5 ft 3 in 5 ft 3 in 5 ft 3 in Weight: 263 lb 4 oz BMI 46.6 BP 124/78 H Intake Visit Reasons: 32 WK OB Chief Complaint: 32 Week OB Belt Notcher Required: No Is patient in pain?: No Allergies adhesive tape Allergy (Mild, Verified 12/11/24 15:49) Rash Medications ?Medication ?Instructions ?Recorded ?Confirmed ?Type multivit-min no.71-iron fum 28 300 cap PO DAILY pregna ncy 01/11/23 12/11/24 History mg-folate no.1 1 mg-dha 300 mg capsule (PNV-[place]) ondansetron 4 mg disintegrating 4 mg PO Q4H PRN nausea and 06/18/24 12/11/24 Rx tablet vomiting #60 tabs metoclopramide HCl 10 mg tablet 10 mg PO TID nausea #9 0 tabs 08/27/24 12/11/24 Rx (Reglan) flash glucose scanning reader #1 ea 11/12/24 12/11/24 Rx (FreeStyle Dot 2 [place]) flash glucose sensor (FreeStyle #1 ea 11/12/24 5 Rx Dot 2 Sensor kit) 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 sensor (FreeStyle #1 ea 12/03/24 5 Rx Dot 3 Sensor device) 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,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,cont #1 ea 12/03/24 12/11/24 Rx (FreeStyle Dot 3 [place]) Last Menstrual Period: 05/02/24 Zika: Zika virus screening: Negative : No PFSH PFSH Medical History Seasonal allergies Hx of chlamydia infection Adopted Chlamydia infection affecting Anxiety Surgical History History of dental surgery Family History Mother Diabetes Grandfather Diabetes Social History adopted: Yes (limited family medical history known) household members: spouse, family and children number of children: 2 current occupational status: employed current occupation: [employer] current occupational exposures/hazards: No pets and [...] physical activity do you participate in: none matt/restoration: None seatbelt use: always do you feel safe at home: Yes additional social history: Patient works at [employer]- Works at [employer] History 4 Elective abortions Hx Para 2 Spontaneous abortions 1 Hx # Term Pregnancies 2 Ectopic pregnancies Hx # Pregnancies Multiple births # of living children 2 Past Pregnancies Del. Date Name GA/Weeks Outcome Route Bth Weight Infant Gen Labor Lgth Anesthesia Del Locatn Provider FOB 07/20/20 Andre 37 live - full term vacuum 8# 11oz Male [facility] Alex 08/20/23 Radames Elizondo 38 live - full term 7lbs 8oz Male [facility] SM Delivery Date: 07/20/20 Last Updated [...] 4 weeks- requesting to do them at [facility] because insurance lapsed. 10/31/24 -?-?-?-?-?-?-?-?-?-?-?-?- 26w [...] care and follow up. 12/11/24 1614 s SWINE GENETICS RESEARCHER SWINE GENETICS RESEARCHER-C> Date _ Anisa Blackmon NP SWINE GENETICS RESEARCHER-C Cosigner Signature: Date (if applicable) CC: ~ [facility]06-12-2025 Progress note Author Anisa Blackmon [facility] Note Date/Time December 11, 2024 4:14 pm [facility] Women's Care [address] [place] [address], [address] [place] [address] OFFICE VISIT Date of Service: 12/11/24 MR#: [id number] Acct: [id number] Name: AZAEL SULTANA Rep #: [id number] : 2000 Provider: MING Blackmon Age/Sex: 24/F [place] [facility] Status: Signed Intake Vital Signs 07/03/24 13:01 11/11/24 15:03 12/11/24 15:51 12/11/24 15:58 Height 5 ft 3 in 5 ft 3 in 5 ft 3 in 5 ft 3 in Weight: 263 lb 4 oz BMI 46.6 BP 124/78 H Intake Visit Reasons: 32 WK OB Chief Complaint: 32 Week OB Belt Notcher Required: No Is patient in pain?: No Allergies adhesive tape Allergy (Mild, Verified 12/11/24 15:49) Rash Medications ?Medication ?Instructions ?Recorded ?Confirmed ?Type multivit-min no.71-iron fum 28 300 cap PO DAILY pregna ncy 01/11/23 12/11/24 History mg-folate no.1 1 mg-dha 300 mg capsule (PNV-[place]) ondansetron 4 mg disintegrating 4 mg PO Q4H PRN nausea and 06/18/24 12/11/24 Rx tablet vomiting #60 tabs metoclopramide HCl 10 mg tablet 10 mg PO TID nausea #9 0 tabs 08/27/24 12/11/24 Rx (Reglan) flash glucose scanning reader #1 ea 11/12/24 12/11/24 Rx (FreeStyle Dot 2 [place]) flash glucose sensor (FreeStyle #1 ea 11/12/24 5 Rx Dot 2 Sensor kit) 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 sensor (FreeStyle #1 ea 12/03/24 5 Rx Dot 3 Sensor device) 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,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,cont #1 ea 12/03/24 12/11/24 Rx (FreeStyle Dot 3 [place]) Last Menstrual Period: 05/02/24 Zika: Zika virus screening: Negative : No PFSH PFSH Medical History Seasonal allergies Hx of chlamydia infection Adopted Chlamydia infection affecting Anxiety Surgical History History of dental surgery Family History Mother Diabetes Grandfather Diabetes Social History adopted: Yes (limited family medical history known) household members: spouse, family and children number of children: 2 current occupational status: employed current occupation: [employer] current occupational exposures/hazards: No pets and animals: [...] physical activity do you participate in: none matt/restoration: None seatbelt use: always do you feel safe at home: Yes additional social history: Patient works at [employer]- Works at [employer] History 4 Elective abortions Hx Para 2 Spontaneous abortions 1 Hx # Term Pregnancies 2 Ectopic pregnancies Hx # Pregnancies Multiple births # of living children 2 Past Pregnancies Del. Date Name GA/Weeks Outcome Route Bth Weight Infant Gen Labor Lgth Anesthesia Del Locatn Provider FOB 07/20/20 Andre 37 live - full term vacuum 8# 11oz Male [facility] Alex 08/20/23 Radames Elizondo 38 live - full term 7lbs 8oz Male [facility] SM Delivery Date: 07/20/20 Last Updated [...] 4 weeks- requesting to do them at [facility] because insurance lapsed. 10/31/24 -?-?-?-?-?-?-?-?-?-?-?-?- 26w [...] Continue routine care and follow up. 12/11/24 5988 <Electronically signed by Anisa rueda SWINE GENETICS RESEARCHER SWINE GENETICS RESEARCHER-C> Date _ Anisa Evergreen SWINE GENETICS RESEARCHER SWINE GENETICS RESEARCHER-C Cosigner Signature: Date (if applicable) CC: ~ [facility] Work Phone: 1([phone]) 880-249705-13-2025 Progress [facility] Women's Care [address] [place] [address], [address] [place] [address] OFFICE VISIT Date of Service: 11/11/24 MR#: [id number] Acct: [id number] Name: AZAEL SULTANA Rep #: [id number] : 2000 Provider: RACHAEL Ghosh Age/Sex: 24/F [place] [facility]: Signed Intake Vital Signs 10/31/24 14:10 11/11/24 15:03 Height 5 ft 3 in 5 ft 3 in Weight: 264 lb 4 oz 261 lb 8 oz BMI 46.7 46.3 BP 129/84 H 120/82 H Intake Visit Reasons: 28 wk ob/glucose Chief Complaint: 28wk OB Belt Notcher Required: No Is patient in pain?: No Allergies adhesive tape Allergy (Mild, Verified 11/11/24 15:01) Rash Medications ?Medication ?Instructions ?Recorded ?Confirmed ?Type multivit-min no.71-iron fum 28 300 cap PO DAILY pregna ncy 01/11/23 11/11/24 History mg-folate no.1 1 mg-dha 300 mg capsule (PNV-[place]) ondansetron 4 mg disintegrating 4 mg PO [...] 2 current occupational status: employed current occupation: [employer] current occupational exposures/hazards: No pets and animals: [...] physical activity do you participate in: none matt/restoration: None seatbelt use: always do you feel safe at home: Yes additional social history: Patient works at [employer]- Works at [employer] History 4 Elective abortions Hx Para 2 Spontaneous abortions 1 Hx # Term Pregnancies 2 Ectopic pregnancies Hx # Pregnancies Multiple births # of living children 2 Past Pregnancies Del. Date Name GA/Weeks Outcome Route Bth Weight Gen Labor Lgth Anesthesia Del Locatn Provider FOB 07/20/20 Andre 37 live - full term vacuum 8# 11oz Male [facility] Alex 08/20/23 Radames Elizondo 38 live - full term 7lbs 8oz Male [facility] SM Delivery Date: 07/20/20 Last Updated [...] 4 weeks- requesting to do them at [facility] because insurance lapsed. 10/31/24 -?-?-?-?-?-?-?-?-?-?-?--?- 26w [...] Cosigner Signature: Date (if applicable) CC: ~ [facility]05-13-2025 Progress note Author Marietta Ghosh [facility] Note Date/Time November 11, 2024 3:27p [facility]'s [address], [address] [place] [address] OFFICE VISIT Date of Service: 11/11/24 MR#: [id number] Acct: [id number] Name: KAYYAZAELCURT MUÑOZ Rep #: [id number] : 2000 Provider: RACHAEL Ghosh Age/Sex: 24/F [place] [facility]: Signed Intake Vital Signs 10/31/24 14:10 11/11/24 15:03 Height 5 ft 3 in 5 ft 3 in Weight: 264 lb 4 oz 261 lb 8 oz BMI 46.7 46.3 BP 129/84 H 120/82 H Intake Visit Reasons: 28 wk ob/glucose Chief Complaint: 28wk OB Belt Notcher Required: No Is patient in pain?: No Allergies adhesive tape Allergy (Mild, Verified 11/11/24 15:01) Rash Medications ?Medication ?Instructions ?Recorded ?Confirmed ?Type multivit-min no.71-iron fum 28 300 cap PO DAILY pregna ncy 01/11/23 11/11/24 History mg-folate no.1 1 mg-dha 300 mg capsule (PNV-[place]) ondansetron 4 mg disintegrating 4 mg PO [...] 2 current occupational status: employed current occupation: [employer] current occupational exposures/hazards: No pets and [...] physical activity do you participate in: none matt/restoration: None seatbelt use: always do you feel safe at home: Yes additional social history: Patient works at [employer]- Works at [employer] History 4 Elective abortions Hx Para 2 Spontaneous abortions 1 Hx # Term Pregnancies 2 Ectopic pregnancies Hx # Pregnancies Multiple births # of living children 2 Past Pregnancies Del. Date Name GA/Weeks Outcome Route Bth Weight Infant Gen Labor Lgth Anesthesia Del Locatn Provider FOB 07/20/20 Andre 37 live - full term vacuum 8# 11oz Male [facility] Alex 08/20/23 Radameslizz Nayakon 38 live - full term 7lbs 8oz Male [facility] SM Delivery Date: 07/20/20 Last Updated [...] 4 weeks- requesting to do them at [facility] because insurance lapsed. 10/31/24 -?-?-?-?-?-?-?-?-?-?-?--?- 26w [...] Cosigner Signature: Date (if applicable) CC: ~ [facility] [employer] Work Phone: 1([phone]) 630-461604-03-2025 Evaluation note* Diagnosis Onset Date Resolution Status [...] of high-risk acute December 26, 2024 2:34pm [facility] Work Phone: 1([phone]) 783-569704-03-2025 Evaluation note* Diagnosis Onset Date Resolution Status [...] of high-risk acute January 08, 2025 1:46pm [facility] Work Phone: 1([phone]) 838-927404-03-2025 Evaluation note* Diagnosis Onset Date Resolution Status [...] of high-risk acute January 08, 2025 1:46pm [facility] Work Phone: 1([phone]) 289-144504-03-2025 Evaluation note* Diagnosis Onset Date Resolution Status [...] of high-risk acute January 16, 2025 4:01pm [facility] Work Phone: 1([phone]) 709-481504-03-2025 Evaluation note* Diagnosis Onset Date Resolution Status [...] of high-risk acute January 22, 2025 2:43pm [facility] Work Phone: 1(157) 106-697204-03-2025 Evaluation note* Diagnosis Onset Date Resolution Status [...] of high-risk acute January 29, 2025 2:58pm [facility] Work Phone: 1(157) 730-960202-26-2025 Evaluation note* Diagnosis Onset Date Resolution Status [...] of high-risk acute December 11, 2024 3:47pm [facility] Work Phone: 1([phone]) 456-357902-26-2025 Evaluation note* Diagnosis Onset Date Resolution Status [...] , antepartum acute December 16, 2024 10:37am [facility] Work Phone: [phone] Evaluation note* Diagnosis Onset Date Resolution Status [...] high-risk acute November 11, 2024 2 :55pm [facility] Work Phone: 1(794) 513-351902-21-2024 Progress note Author Anisa Blackmon [facility] August 22, 2023 7:55am Note Date/Time August 22, 2023 7:55am [facility] Medical Records Department [address] [place] [address] Progress Note - OBGYN 08/22/23 0753 MR#: [id number] Acct: [id number] Name: AZAEL SULTANA Rep #:[id number] : 2000 22 From: Anisa Blackmon NP SWINE GENETICS RESEARCHER-C PCP: MING Sagastume Status:ADM I N Location: [place] [address] Subjective Subjective Patient doing well without complaints. [...] and BP stable 6. home today 08/22/23 4135 <Electronically signed by Anisa Blackmon NP SWINE GENETICS RESEARCHER-C> Cosigner Signature (if applicable): CC: ~ Signed [facility] Work Phone: 1([phone]) 737-627002-20-2024 Discharge summary Author Marietta Ghosh [facility] August 21, 2023 4:10pm Note Date/Time August 20, 2023 7:45am [facility] Medical Records Department [address] [place] [address] Instructions for Home/Discharge Instructions 08/20/23 0745 MR#: [id number] Acct: [id number] Name: AZAEL SULTANA Rep #:[id number] : [...] Up With: Fadumo Zelaya MD When: Call [phone] to make an appointment for an incision check in 1-2 weeks. Test Results: Test results from this visit will be discussed in further detail at your follow- up appointment, if applicable. Discharge Plan Admission Admit Date/Time: 08/20/23 05:30 Attending Provider: Fadumo Zelaya Primary Care Provider: Bird Ruiz NP Discharge Orders/Prescriptions Prescriptions: No Action PNV-[place] 28-1-300 mg capsule 300 cap PO DAILY [...] Referrals / Follow Up: Bird Ruiz NP, SWINE GENETICS RESEARCHER-C [Primary Care Provider] - Disposition Disposition (needs filled in before D/C Order can be placed): Home, Self Care 08/21/23 1411<Electronically signed by Fadumo Zelaya MD>Fadumo Zelaya MD CC: SWINE GENETICS RESEARCHER-C Bird Ruiz ~ Signed [facility] Work Phone: 1(482) 324-855802-20-2024 Progress note Author Marietta Ghosh [facility] August 21, 2023 8:09am Note Date/Time August 21, 2023 8:09am [facility] Medical Records Department [address] [place] [address] Progress Note - OBGYN 08/21/23 0807 MR#: [id number] Acct: [id number] Name: AZAEL SULTANA Rep #:[id number] : 2000 22 From: Marietta Ghosh CNM PCP: MING Sagastume Status:ADM I N Location: [place] [address] Subjective Subjective Patient doing well without complaints. [...] Cosigner Signature (if applicable): CC: ~ Signed [facility] Work Phone: 1(896) 344-182202-19-[address] [facility] 08-20-2023 History and physical note Author Fadumo Zelaya [facility] August 20, 2023 7:40am Note Date/Time August 20, 2023 7:39am [facility] Medical Records Department [address] [place] [address] History & Physical Exam 08/20/23 0735 MR#: [id number] Acct: [id number] Name: AZAEL SULTANA Rep #:[id number] : 2000 22 From: Fadumo lepe MD PCP: MING Sagastume Status:ADM I N Location: [place] [address]1 History and Physical Date of Admission: 08/20/23 Vital Signs 05/18/2313:53 08/10/2413:17 08/14/2410:12 08/14/2410:12 Height 5 ft 3 in 5 ft 3 in 5 ft 3 in 5 ft 3 in Weight: 267 lb 2 oz BMI 47.3 BP 124/79 H Intake Visit Reasons: NST Belt Notcher Required: No Is patient in pain?: No Allergies No Known Allergies Allergy (Verified 08/14/23 11:11) Medications multivit-min no.71-iron fum 28 mg-folate no.1 1 mg-dha 300 mg capsule (PNV- [place]) cap PO 01/11/23 [History Confirmed 08/14/23] aspirin [...] 1 current occupational status: employed current occupation: [employer] current occupational exposures/hazards: No pets and animals: [...] 1-2 times per week duration: 30-45 minutes/day matt/restoration: None seatbelt use: always do you feel safe at home: Yes additional social history: Patient works at [employer]- Works at [employer] History 3 Elective abortions Hx Para 1 Spontaneous abortions 1 Hx # Term Pregnancies 1 Ectopic pregnancies Hx # Pregnancies Multiple births # of living children 1 Past Pregnancies Del. Date Name GA/Weeks Outcome Route Bth Weight Gen Labor Lgth Anesthesia Del Locatn Provider FOB 07/20/20 Andre 37 live - full term va cuum Male [facility] Alex Delivery Date: 07/20/20 Last Updated [...] 268 lb(+28 lb) 120/76 Negative -?-?-?-?-?-?-?-?-?-?-?-?- Negative [id number] 32 -?-?-?-?-?-?-?-?-?-?-?-?- SM- unable to keep on [...] fm. labor precautions reviewed. Had SD with 1wc07pq (approx 3486g) baby. This baby EFW 3458 [...] gestation: 37 weeks CPT Codes Non-Stress Test (93106) Assessment and Plan Assessment and Plan (1) [...] Zelaya MD> Cosigner Signature (if applicable): CC: SWINE GENETICS RESEARCHERRaymundo Ruiz; Dr. Fadumo Zelaya MD~ Signed [facility] Work Phone: 1(330) [phone] NotePap Smear Specimen AdequacyJuly 2022 1:13pmComment.Satisfactory for evaluation. No endocervical component is identified.An endocervical component is not commonly seen in the patient.[facility] A#[id number] Cleveland Heights Medical CenterComment on above: Satisfactory for evaluation. No endocervical component is identified.An endocervical component is not commonly seen in the patient.01-25-2023 NotePap Smear Specimen AdequacyJuly 2022 1:13pmComment.Satisfactory for evaluation. No endocervical component is identified.An endocervical component is not commonly seen in the patient.[facility] INTER[facility] A#[id number] HospitalComment on above:Satisfactory for evaluation. No endocervical component is identified.An endocervical component is not commonly seen in the patient.01-25-2023 NotePap Smear Specimen AdequacyJuly 2022 1:13pmComment.Satisfactory for evaluation. No endocervical component is identified.An endocervical component is not commonly seen in the patient.[facility] A#[id number] HospitalComment on above: Satisfactory for evaluation. No [...] Supervision of high risk , antepartum acute [facility] Work Phone: Evaluation note* Diagnosis Onset Date Resolution Status Former cigarette smoker acut e H/O miscarriage, currently acute H/O depression, currently acute H/O pre-eclampsia in prior , currently pregna nt acute History of shoulder dystocia in prior , currently acute Marijuana use acute Obesity affecting acute acute Seasonal allergies acute Supervision of high risk , antepartum acute [facility] Work Phone: Evaluation note* Diagnosis Onset [...] H/O miscarriage, currently resolved Seasonal allergies resolved [facility] Work Phone: Evaluation note* Diagnosis Onset [...] Supervision of high risk , antepartum acute [facility] Work Phone: Evaluation note* Diagnosis Onset [...] Supervision of high risk , antepartum acute [facility] Work Phone: Evaluation note* Diagnosis Onset [...] Supervision of high risk , antepartum acute [facility] Work Phone: Evaluation note* Diagnosis Onset [...] Supervision of high risk , antepartum acute [facility] Work Phone: Evaluation note* Diagnosis Onset [...] Supervision of high risk , antepartum acute [facility] Work Phone: Evaluation note* Diagnosis [...] Supervision of high risk , antepartum acute [facility] Work Phone: Evaluation note* Diagnosis Onset [...] Supervision of high risk , antepartum acute [facility] Work Phone: Evaluation note* Diagnosis Onset [...] Supervision of high risk , antepartum resolved [facility] Work Phone: Reason for referral (narrative)No reason for referral information availableKing[facility] Work Phone: Summary Purpose Family History Relationship Condition Age at Onset Recorded Date/T roxanne mother Diabetes mellitus Unknown grandfather Diabetes mellitus Unknown Advance Directives Advance Directive Response Recorded Date/ Time Living Will No July 05 2 2:08pm Power of Exercise Instruct No July 05, 2 022 2:08pm Advance Directive Response Recorded Date/ Time Living Will No July 05 2 1:08pm Power of Exercise Instruct No July 05, 2 022 1:08pm Advance Directive Response Recorded Date/ Time Living Will No June 19, 2 023 2:28pm Power of Exercise Instruct No June 19, 2023 2:28pm Advance Directive Response Recorded Date/ Time Living Will No August 20, 2 024 7:05am Power of Exercise Instruct No August 20, 2023 7:05am Chief Complaint [...] August 3:25pm [facility]:25pm August 27, [...] section and content) DATE CREATED AUTHOR 12/24/2017 [facility] DATE CREATED AUTHOR AUTHOR'S ORGANIZ ATION 12/25/2017 [facility] DATE CREATED AUTHOR AUTHOR'S ORGANIZ ATION 12/26/2017 [facility] DATE CREATED AUTHOR AUTHOR'S ORGANIZ ATION 05/12/2023 [facility] DATE CREATED AUTHOR AUTHOR'S ORGANIZ ATION 09/24/2024 [facility] DATE CREATED AUTHOR AUTHOR'S ORGANIZ ATION 11/14/2024 [facility] DATE CREATED AUTHOR AUTHOR'S ORGANIZ ATION 01/26/2025 [facility] Care Teams (unrecognized sec tion and content) Team Status: Active Member Role Status Dates No Primary Care Physician Family Provider Active Bird Ruiz SWINE GENETICS RESEARCHER, SWINE GENETICS RESEARCHER-C Primary Care Provider Active Team Status: Inactive Member Role Status Dates Bird Ruiz NP, SWINE GENETICS RESEARCHER-C Primary Care Provider, Referri ng Provider Active Dr. Evelin Cardona DO Attending Provider Activ e Team Status: Inactive Member Role Status Dates Bird Ruiz NP, SWINE GENETICS RESEARCHER-C Primary Care Provider Active Dr. Evelin Cardona DO Attending Provider, Refe rring Provider Active Team Status: Inactive Member Role Status Dates Bird Ruiz SWINE GENETICS RESEARCHER, SWINE GENETICS RESEARCHER-C Primary Care Provider, Referri ng Provider Active Marietta Ghosh CNM Attending Provider Active Team Status: Inactive Member Role Status Dates Bird Ruiz NP, SWINE GENETICS RESEARCHER-C Primary Care Provider, Referri ng Provider Active Dr. Fdaumo Zelaya MD Attending Provider Active Team Status: Inactive Member Role Status Dates Bird Ruiz SWINE GENETICS RESEARCHER, SWINE GENETICS RESEARCHER-C Primary Care Provider, Referri ng Provider Active Dr. Sha Vaughan MD Attending Provider Active Team Status: Inactive Member Role Status Dates Bird Ruiz SWINE GENETICS RESEARCHER, SWINE GENETICS RESEARCHER-C Primary Care Provider Active Dr. Fadumo Zelaya MD Attending Provider, Referr ing Provider Active Team Status: Inactive Member Role Status Dates Bird Ruiz SWINE GENETICS RESEARCHER, SWINE GENETICS RESEARCHER-C Primary Care Provider, Referri ng Provider Active Anisa Blackmon SWINE GENETICS RESEARCHER, SWINE GENETICS RESEARCHER-C Attending Provider Active Team Status: Inactive Member Role Status Dates Bird Ruiz SWINE GENETICS RESEARCHER, SWINE GENETICS RESEARCHER-C Primary Care Provider Active Anisa Blackmon SWINE GENETICS RESEARCHER, SWINE GENETICS RESEARCHER-C Attending Provider, Referring Provider Active Team Status: Active Member Role Status Dates Bird Ruiz SWINE GENETICS RESEARCHER, SWINE GENETICS RESEARCHER-C Primary Care Provider Active Marietta Ghosh CNM Attending Provider, Referring Pro vider Active Team Status: Active Member Role Status Dates Bird Ruiz SWINE GENETICS RESEARCHER, SWINE GENETICS RESEARCHER-C Primary Care Provider Active Dr. Evelin Cardona DO Attending Provider, Referring Provider, Other Provider Active Team Status: Inactive Member Role Status Dates Bird Ruiz SWINE GENETICS RESEARCHER, SWINE GENETICS RESEARCHER-C Primary Care Provider Active Marietta Ghosh CNM Attending Provider, Referring Pro vider Active Team Status: Active Member Role Status Dates Bird Ruiz SWINE GENETICS RESEARCHER, SWINE GENETICS RESEARCHER-C Primary Care Provider Active Dr. Fadumo Zelaya MD Admit Provid er, Attending Provider, Other Provider Active Team Status: Active Member Role Status Dates Bird Ruiz NP, SWINE GENETICS RESEARCHER-C Primary Care Provider Active Dr. Fadumo Zelaya MD Admit Provider, Other Prov ider Active Marietta Ghosh CNM Attending Provider Active Team Status: Active Member Role Status Dates Bird Ruiz SWINE GENETICS RESEARCHER, SWINE GENETICS RESEARCHER-C Primary Care Provider Active Dr. Fadumo Zelaya MD Admit Provider, Other Prov ider Active Anisa Blackmon NP, SWINE GENETICS RESEARCHER-C Attending Provider Active Team Status: Inactive Member Role Status Siddhartha Ruiz SWINE GENETICS RESEARCHER, SWINE GENETICS RESEARCHER-C Primary Care Provider Active Dr. Fadumo Zelaya MD Admit Provider, Attending Provider Active Team Status: Active Member Role Status Siddhartha Ruiz SWINE GENETICS RESEARCHER, SWINE GENETICS RESEARCHER-C Primary Care Provider Active Dr. Fadumo Zelaya MD Attending Provider, Referr ing Provider Active Team Status: Active Member Role Status Dates Bird Ruiz SWINE GENETICS RESEARCHER, SWINE GENETICS RESEARCHER-C Primary Care Provider Active Team Status: Inactive Member Role Status Dates Bird Ruiz NP, SWINE GENETICS RESEARCHER-C Primary Care Provider Active Start: July 21, 2024 End: July 21, 2024 Marietta Ghosh CNM Attending Provider Active S tart: July 21, 2024 End: July 21, 2024 Marietta Ghosh CNM Referring Provider Active S tart: July 21, 2024 End: July 21, 2024 Team Status: Inactive Member Role Status Dates Bird Ruiz SWINE GENETICS RESEARCHER, SWINE GENETICS RESEARCHER-C Primary Care Provider Active Start: August 01, 2024 End: August 01, 2024 Bird Ruiz NP, SWINE GENETICS RESEARCHER-C Referring Provider Active Start: August 01, 2024 End: August 01, 2024 Dr. Fadumo Zelaya MD Attending Provider Active Start: August 01, 2024 End: August 01, 2024 Team Status: Inactive Member Role Status Dates Bird Ruiz NP, SWINE GENETICS RESEARCHER-C Primary Care Provider Active Start: August 27, 2024 End: August 27, 2024 Bird Ruiz SWINE GENETICS RESEARCHER, SWINE GENETICS RESEARCHER-C Referring Provider Active Start: August 27, 2024 End: August 27, 2024 Dr. Fadumo Zelaya MD Attending Provider Active Start: August 27, 2024 End: August 27, 2024 Team Status: Inactive Member Role Status Dates Bird Ruiz NP, SWINE GENETICS RESEARCHER-C Primary Care Provider Active Start: October 02, 2024 End: October 02, 2024 Bird Ruiz NP, SWINE GENETICS RESEARCHER-C Referring Provider Active Start: October 02, 2024 End: October 02, 2024 Marietta Ghosh CNM Attending Provider Active S tart: October 02, 2024 End: October 02, 2024 Team Status: Inactive Member Role Status Dates Bird Ruiz NP, SWINE GENETICS RESEARCHER-C Primary Care Provider Active Start: October 31, 2024 End: October 31, 2024 Bird Ruiz NP, SWINE GENETICS RESEARCHER-C Referring Provider Active Start: October 31, 2024 End: October 31, 2024 Marietta Ghosh CNM Attending Provider Active S tart: October 31, 2024 End: October 31, 2024 Team Status: Inactive Member Role Status Dates Bird Ruiz NP, SWINE GENETICS RESEARCHER-C Primary Care Provider Active Start: November 11, 2024 End: November 11, 2024 Bird Ruiz NP, SWINE GENETICS RESEARCHER-C Referring Provider Active Start: November 11, 2024 End: November 11, 2024 Marietta Ghosh CNM Attending Provider Active S tart: November 11, 2024 End: November 11, 2024 Team Status: Active Member Role Status Dates Bird Ruiz SWINE GENETICS RESEARCHER, SWINE GENETICS RESEARCHER-C Primary Care Provider Active Start: November 11, 2024 Anisa Blackmon SWINE GENETICS RESEARCHER, SWINE GENETICS RESEARCHER-C Attending Provider Active Start: November 11, 2024 Anisa Blackmon SWINE GENETICS RESEARCHER, SWINE GENETICS RESEARCHER-C Referring Provider Active Start: November 11, 2024 Team Status: Inactive Member Role Status Dates Bird Ruiz SWINE GENETICS RESEARCHER, SWINE GENETICS RESEARCHER-C Primary Care Provider Active Start: November 11, 2024 End: November 11, 2024 Anisa Blackmon SWINE GENETICS RESEARCHER, SWINE GENETICS RESEARCHER-C Attending Provider Active Start: November 11, 2024 End: November 11, 2024 Anisa Blackmon SWINE GENETICS RESEARCHER, SWINE GENETICS RESEARCHER-C Referring Provider Active Start: November 11, 2024 End: November 11, 2024 Team Status: Inactive Member Role Status Dates Bird Ruiz NP, SWINE GENETICS RESEARCHER-C Primary Care Provider Active Start: December 11, 2024 End: December 11, 2024 Bird Ruiz SWINE GENETICS RESEARCHER, SWINE GENETICS RESEARCHER-C Referring Provider Active Start: December 11, 2024 End: December 11, 2024 Anisa Blackmon SWINE GENETICS RESEARCHER, SWINE GENETICS RESEARCHER-C Attending Provider Active Start: December 11, 2024 End: December 11, 2024 Team Status: Inactive Member Role Status Dates Bird Ruiz NP, SWINE GENETICS RESEARCHER-C Primary Care Provider Active Start: December 16, 2024 End: December 16, 2024 Bird Ruiz NP, SWINE GENETICS RESEARCHER-C Referring Provider Active Start: December 16, 2024 End: December 16, 2024 Dr. Sha Vaughan MD Attending Provider Active Sta rt: December 16, 2024 End: December 16, 2024 Team Status: Inactive Member Role Status Dates Bird Ruiz NP, SWINE GENETICS RESEARCHER-C Primary Care Provider Active Start: December 17, 2024 End: December 17, 2024 Marietta Ghosh CNM Attending Provider Active S tart: December 17, 2024 End: December 17, 2024 Marietta Ghosh CNM Referring Provider Active S tart: December 17, 2024 End: December 17, 2024 Team Status: Active Member Role/Relationship Status Dates Bird Ruiz NP, SWINE GENETICS RESEARCHER-C Primary Care Provider Active Team Status: Inactive Member Role/Relationship Status Dates Bird Ruiz NP, SWINE GENETICS RESEARCHER-C Primary Care Provider Active Start: October 02, 2024 End: October 02, 2024 Bird Ruiz NP, SWINE GENETICS RESEARCHER-C Referring Provider Active Start: October 02, 2024 End: October 02, 2024 Marietta Ghosh CNM Attending Provider Active S tart: October 02, 2024 End: October 02, 2024 Team Status: Inactive Member Role/Relationship Status Dates Bird Ruiz SWINE GENETICS RESEARCHER, SWINE GENETICS RESEARCHER-C Primary Care Provider Active Start: October 31, 2024 End: October 31, 2024 Bird Ruiz NP, SWINE GENETICS RESEARCHER-C Referring Provider Active Start: October 31, 2024 End: October 31, 2024 Marietta Ghosh CNM Attending Provider Active S tart: October 31, 2024 End: October 31, 2024 Team Status: Inactive Member Role/Relationship Status Dates Bird Ruiz NP, SWINE GENETICS RESEARCHER-C Primary Care Provider Active Start: November 11, 2024 End: November 11, 2024 Bird Ruiz NP, SWINE GENETICS RESEARCHER-C Referring Provider Active Start: November 11, 2024 End: November 11, 2024 Marietta Ghosh CNM Attending Provider Active S tart: November 11, 2024 End: November 11, 2024 Team Status: Inactive Member Role/Relationship Status Dates Bird Ruiz NP, SWINE GENETICS RESEARCHER-C Primary Care Provider Active Start: November 11, 2024 End: November 11, 2024 Anisa Blackmon NP, SWINE GENETICS RESEARCHER-C Attending Provider Active Start: November 11, 2024 End: November 11, 2024 Anisa Blackmon SWINE GENETICS RESEARCHER, SWINE GENETICS RESEARCHER-C Referring Provider Active Start: November 11, 2024 End: November 11, 2024 Team Status: Inactive Member Role/Relationship Status Dates Bird Ruiz NP, SWINE GENETICS RESEARCHER-C Primary Care Provider Active Start: December 11, 2024 End: December 11, 2024 Bird Ruiz NP, SWINE GENETICS RESEARCHER-C Referring Provider Active Start: December 11, 2024 End: December 11, 2024 Anisa Blackmon NP, SWINE GENETICS RESEARCHER-C Attending Provider Active Start: December 11, 2024 End: December 11, 2024 Team Status: Inactive Member Role/Relationship Status Dates Bird Ruiz NP, SWINE GENETICS RESEARCHER-C Primary Care Provider Active Start: December 16, 2024 End: December 16, 2024 Bird Ruiz NP, SWINE GENETICS RESEARCHER-C Referring Provider Active Start: December 16, 2024 End: December 16, 2024 Dr. Sha Vaughan MD Attending Provider Active Sta rt: December 16, 2024 End: December 16, 2024 Team Status: Inactive Member Role/Relationship Status Dates Bird Ruiz SWINE GENETICS RESEARCHER, SWINE GENETICS RESEARCHER-C Primary Care Provider Active Start: December 17, 2024 End: December 17, 2024 Marietta Ghosh CNM Attending Provider Active S tart: December 17, 2024 End: December 17, 2024 Marietta Ghosh CNM Referring Provider Active S tart: December 17, 2024 End: December 17, 2024 Team Status: Inactive Member Role/Relationship Status Dates Bird Ruiz SWINE GENETICS RESEARCHER, SWINE GENETICS RESEARCHER-C Primary Care Provider Active Start: December 26, 2024 End: December 26, 2024 Bird Ruiz SWINE GENETICS RESEARCHER, SWINE GENETICS RESEARCHER-C Referring Provider Active Start: December 26, 2024 End: December 26, 2024 Dr. Fadumo Zelaya MD Attending Provider Active Start: December 26, 2024 End: December 26, 2024 Team Status: Active Member Role/Relationship Status Dates Bird Ruiz SWINE GENETICS RESEARCHER, SWINE GENETICS RESEARCHER-C Primary Care Provider Active Start: December 26, 2024 Dr. Fadumo Zelaya MD Attending Provider Active Start: December 26, 2024 Dr. Fadumo Zelaya MD Referring Provider Active Start: December 26, 2024 Team Status: Inactive Member Role/Relationship Status Dates Bird Ruiz SWINE GENETICS RESEARCHER, SWINE GENETICS RESEARCHER-C Primary Care Provider Active Start: December 26, 2024 End: December 26, 2024 Dr. Fadumo Zelaya MD Attending Provider Active Start: December 26, 2024 End: December 26, 2024 Dr. Fadumo Zelaya MD Referring Provider Active Start: December 26, 2024 End: December 26, 2024 Team Status: Active Member Role/Relationship Status Dates Bird Ruiz NP, SWINE GENETICS RESEARCHER-C Primary Care Provider Active Start: January 01, 2025 Marietta Ghosh CNM Attending Provider Active S tart: January 01, 2025 Marietta Ghosh CNM Referring Provider Active S tart: January 01, 2025 Dr. Fadumo Zelaya MD Other Provider Active Start: January 01, 2025 Team Status: Active Member Role/Relationship Status Dates Bird Ruiz NP, SWINE GENETICS RESEARCHER-C Primary Care Provider Active Start: January 08, 2025 Dr. Fadumo Zelaya MD Attending Provider Active Start: January 08, 2025 Dr. Fadumo Zelaya MD Referring Provider Active Start: January 08, 2025 Team Status: Inactive Member Role/Relationship Status Dates Bird Ruiz SWINE GENETICS RESEARCHER, SWINE GENETICS RESEARCHER-C Primary Care Provider Active Start: January 08, 2025 End: January 08, 2025 Bird Ruiz SWINE GENETICS RESEARCHER, SWINE GENETICS RESEARCHER-C Referring Provider Active Start: January 08, 2025 End: January 08, 2025 Anisa Blackmon SWINE GENETICS RESEARCHER, SWINE GENETICS RESEARCHER-C Attending Provider Active Start: January 08, 2025 End: January 08, 2025 Team Status: Inactive Member Role/Relationship Status Dates Bird Ruiz SWINE GENETICS RESEARCHER, SWINE GENETICS RESEARCHER-C Primary Care Provider Active Start: January 08, [...] Member Role/Relationship Status Dates Bird Ruiz NP, SWINE GENETICS RESEARCHER-C Primary Care Provider Active Start: January 01, [...] Member Role/Relationship Status Dates Bird Ruiz NP, SWINE GENETICS RESEARCHER-C Primary Care Provider Active Start: January 08, 2025 Dr. Fadumo Zelaya MD Referring Provider Active Start: January 08, 2025 Dr. Fadumo Zelaya MD Other Provider Active Start: January 08, 2025 Dr. Evelin Cardona DO Attending Provider Activ e Start: January 08, 2025 Dr. Evelin Cardona DO Other Provider Active Start: January 08, 2025 Team Status: Inactive Member Role/Relationship Status Dates Bird Ruiz SWINE GENETICS RESEARCHER, SWINE GENETICS RESEARCHER-C Primary Care Provider Active Start: January 13, 2025 End: January 13, 2025 Dr. Evelin Cardona DO Attending Provider Activ e Start: January 13, 2025 End: January 13, 2025 Dr. Evelin Cardona DO Referring Provider Activ e Start: January 13, 2025 End: January 13, 2025 Team Status: Active Member Role/Relationship Status Dates Bird Ruiz SWINE GENETICS RESEARCHER, SWINE GENETICS RESEARCHER-C Primary Care Provider Active Start: January 13, 2025 Dr. Evelin Cardona , Attending Provider Activ e Start: January 13, 2025 Dr. Evelin Cardona DO Referring Provider Activ e Start: January 13, 2025 Dr. Evelin Cardona , DO Other Provider Active Start: January 13, 2025 Team Status: Inactive Member Role/Relationship Status Dates Bird Ruiz SWINE GENETICS RESEARCHER, SWINE GENETICS RESEARCHER-C Primary Care Provider Active Start: January 16, 2025 End: January 16, 2025 Bird Ruiz SWINE GENETICS RESEARCHER, SWINE GENETICS RESEARCHER-C Referring Provider Active Start: January 16, 2025 End: January 16, 2025 Dr. Fadumo Zelaya MD Attending Provider Active Start: January 16, 2025 End: January 16, 2025 Team Status: Active Member Role/Relationship Status Dates Bird Ruiz SWINE GENETICS RESEARCHER, SWINE GENETICS RESEARCHER-C Primary Care Provider Active Start: January 16, 2025 Dr. Fadumo Zelaya MD Attending Provider Active Start: January 16, 2025 Dr. Fadumo Zelaya MD Referring Provider Active Start: January 16, 2025 Team Status: Active Member Role/Relationship Status Dates Bird Ruiz NP, SWINE GENETICS RESEARCHER-C Primary Care Provider Active Start: January 22, 2025 Dr. Fadumo Zelaya MD Attending Provider Active Start: January 22, 2025 Dr. Fadumo Zelaya MD Referring Provider Active Start: January 22, 2025 Team Status: Inactive Member Role/Relationship Status Dates Bird Ruiz SWINE GENETICS RESEARCHER, SWINE GENETICS RESEARCHER-C Primary Care Provider Active Start: January 22, 2025 End: January 22, 2025 Bird Ruiz SWINE GENETICS RESEARCHER, SWINE GENETICS RESEARCHER-C Referring Provider Active Start: January 22, 2025 End: January 22, 2025 Dr. Fadumo Zelaya MD Attending Provider Active Start: January 22, 2025 End: January 22, 2025 Team Status: Inactive Member Role/Relationship Status Dates Bird Ruiz NP, SWINE GENETICS RESEARCHER-C Primary Care Provider Active Start: January 16, 2025 End: January 16, 2025 Dr. Fadumo Zelaya MD Attending Provider Active Start: January 16, 2025 End: January 16, 2025 Dr. Fadumo Zelaya MD Referring Provider Active Start: January 16, 2025 End: January 16, 2025 Team Status: Inactive Member Role/Relationship Status Dates Bird Ruiz NP, SWINE GENETICS RESEARCHER-C Primary Care Provider Active Start: January 22, 2025 End: January 22, 2025 Dr. Fadumo Zelaya MD Attending Provider Active Start: January 22, 2025 End: January 22, 2025 Dr. Fadumo Zelaya MD Referring Provider Active Start: January 22, 2025 End: January 22, 2025 Team Status: Inactive Member Role/Relationship Status Dates Bird Ruiz NP, SWINE GENETICS RESEARCHER-C Primary Care Provider Active Start: January 29, 2025 End: January 29, 2025 Bird Ruiz NP, SWINE GENETICS RESEARCHER-C Referring Provider Active Start: January 29, 2025 [...] BE BASED ON THE PRIMARY CLINICAL RECORDS. [facility] [employer] [facility]. provides no warranty or guarantee of the accuracy or completeness of information in this document.
[2025-01-30] MEDS: Lactated Ringers 1,000 ML 999 ML IV (05:50)
[2025-01-30 06:30] LABS: Hematocrit 33.3 % (37-47); Hemoglobin 11.3 g/dL (12.0-15.0); Immature Granulocytes Count 0.090 X10^3/uL (0.0-0.0); Mean Corp Hgb Conc 33.9 g/dL (32-36); Mean Corpuscular Volume 87.6 fL (81-99); Mean Platelet Vol. 11.2 fl (6.2-12.0); NRBC Flagged by Analyzer 0 % (0-5); Platelet Count 282 K/mm3 (150-450); RBC Distribution Width CV 14.6 % (11.6-14.6); RBC Distribution Width SD 47.3 fl (35.1-43.9); Red Blood Count 3.80 M/mm3 (4.2-5.4); White Blood Count 11.7 K/mm3 (4.4-11.0)
[2025-01-30] MEDS: Lactated Ringers 1,000 ML 150 ML IV (06:58)
--- NOTE | 2025-01-30 07:11 | HP.PCM_ITS ---
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: No Is patient in pain?: No Allergies adhesive tape Allergy (Mild, Verified 01/29/25 15:03) Rash Medications ?Medication ?Instructions ?Recorded ?Confirmed ?Type multivit-min no.71-iron fum 28 300 cap PO DAILY 01/11/2301/01 History mg-folate no.1 1 mg-dha 300 mg capsule (PNV-[place]el[place]) ondansetron 4 mg disintegrating 4 mg PO Q4H PRN nausea and 06/18/2401/01 Rx tablet vomiting #60 tabs metoclopramide HCl 10 mg tablet 10 mg PO TID nausea #90 tabs 08/27/24 Rx (Reglan) 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 sensor (FreeStyle #1 ea 12/03/24 01/29/25 Rx Dot 3 Sensor device) 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,inspector floor,cont #1 ea 12/03/24 01/29/25 Rx (FreeStyle Dot 3 [place]) insulin degludec 100 unit/mL (3 46 unit subcut QHS 01/16/25 01/29/25 His tory mL) subcutaneous pen (Tresiba FlexTouch U-100 insulin) Last Menstrual Period: 05/02/24 Zika: Zika virus screening: Negative : No PFSH PFSH Medical History Seasonal allergies Hx of chlamydia infection Adopted Chlamydia infection affecting Anxiety Surgical History History of dental surgery Family History Mother DiabetesGrandfather Diabetes Social History adopted: Yes (limited family medical history known) household members: spouse, family and children number of children: 2 current occupational status: employed current occupation: [employer] current occupational exposures/hazards: No pets and animals: Yes pets and animals: dog(s) history of recent travel: No sexually active: Yes Smoking Status: Former smoker quit date: 10/30/22 how long ago did patient quit smokin year ago quit status: quit date established alcohol intake: former details: social drinking prior to substance use type: marijuana well-balanced diet: about half the time caffeine: Yes Type: carbonated beverages Number of servings: 1 eating out: 1-3 times/week during the past year weight has: increased > 10 lbs what type of physical activity do you participate in: none matt/confucianism: None seatbelt use: always do you feel safe at home: Yes additional social history: Patient works at [employer]- Works at [employer] History 4 Elective abortions Hx Para 2 Spontaneous abortions 1 Hx # Term Pregnancies 2 Ectopic pregnancies Hx # Pregnancies Multiple births # of living children 2 Past Pregnancies Del. Date Name GA/Weeks Outcome Route Bth Weight Gen Labor Lgth Anesthesia Del Locatn Provider FOB 07/20/20 Andre 37 live - full term vacuum 8# 11oz Male [facility] Alex 08/20/23 Radameslizz Elizondo 38 live - full term 7lbs 8oz Male [facility] Delivery Date: 07/20/20 Last Updated by: Fadumo Johnson MD IOL pre-eclampsia VAVD triple I, shoulder dystocia Delivery Date: 08/20/23 Last Updated by: Fadumo Johnson MD secondary to shoulder dystocia with the first HPI 39wk ob *csection Details: AZAEL SULTANA is a 24 year old who presents for RLTCS OB Visit ANNA MARIE Calculator Estimated Delivery Date Method Current WG Current Estimate 02/06/25 LMP (Certain) 38w 6d Other Estimates 02/05/25 Ultrasound #1 39w 0d Expected Delivery Route/Plan [facility] Labor Preferences- CB/BF classes: n0 labor support person: Marla c section labor intervention preferences: [] pain management options preferred: [] cut cord/dad catch: [] : [] PP control planned: [] discussed possible routes of delivery and associated risks: [] special requests: [] Specific Issue/Plans Covid status: [] Flu vaccine: [] Tdap vaccine: given Rhogam: na LARC form signed: yes Problem list reviewed and updated with the most current plan of care details and appropriate orders placed. Relevant counseling for the gestational age provided. Continue routine care and follow up unless otherwise noted in visit notes/problem list details Initial Weight: 247 lb Date -?-?-?-?-?-?-?-?-?-?-?-?- EGA Weight BP Urine Prot -?-?-?-?-?-?-?-?-?-?-?-?- Glucose FHR FuHt Pres Dilation -?-?-?-?-?-?-?-?-?-?-?-?- Effaced St Visit Note 07/03/24-?-?-?-?-?-?-?-?-?-?-?-?- 8w 6d 247 lb 6 oz(+6 oz) 127/78 -?-?-?-?-?-?-?-?-?-?-?-?- 174 -?-?-?-?-?-?-?-?-?-?-?-?- KW- CRL cons with dates. accepts NIPT. KW- CRL cons with dates. accepts NIPT. planning early gct due to hx of GDM and obesity. will start asa at 12 weeks 08/01/24-?-?-?-?-?-?-?-?-?-?-?-?- 13w 0d 250 lb 6 oz(+3 lb 6 oz) 124/83 Negative -?-?-?-?-?-?-?-?-?-?-?-?- Negative 150 -?-?-?-?-?-?-?-?-?-?-?-?- SM- no vb lof cramping having trouble sleeping 08/27/24-?-?-?-?-?-?-?-?-?-?-?-?- 16w 5d 255 lb 4 oz(+8 lb 4 oz) 135/82 -?-?-?-?-?-?-?-?-?-?-?-?- 150 -?-?-?-?-?-?-?-?-?-?-?-?- SM- having headaches and dizziness, approve intermittent FMLA as needed for symptoms. discussed supprotive care ordered reglan. anatomy us ordered 10/02/24-?-?-?-?-?-?-?-?-?-?-?-?- 21w 6d 258 lb 2 oz(+11 lb 2 oz) 122/82 -?-?-?-?-?-?-?-?-?-?-?-?- 150 -?-?-?-?-?-?-?-?-?-?-?-?- KW- no vb/cramping. +fm. no longer having headaches. US reviewed. growth US q 4 weeks- requesting to do them at [facility] because insurance lapsed. 10/31/24-?-?-?-?-?-?-?-?-?-?-?-?- 26w 0d 264 lb 4 oz(+17 lb 4 oz) 129/84 Negative -?-?-?-?-?-?-?-?-?-?-?-?- Negative 145 -?-?-?-?-?-?-?-?-?-?-?-?- KW- no vb/lof/ctx. good fm. glucose info given for next visit. US scheduled for 11/1311/11/24-?-?-?-?-?-?-?-?-?-?-?-?- 27w 4d 261 lb 8 oz(+14 lb 8 oz) 120/82 Negative -?-?-?-?-?-?-?-?-?-?-?-?- Negative 135 33 -?-?--?-?-?-?-?-?-?-?-?-?- KW- no vb/lof/ctx. good fm. glucose done. request for PFPT for pelvic pain. R c/s requested at 39 weeks-but wants to consider 12/11/24-?-?-?-?-?-?-?-?-?-?-?--?- 31w 6d 263 lb 4 oz(+16 lb 4 oz) 124/78 Negative -?-?-?-?-?-?-?-?-?-?-?-?- Negative 152 34 -?-?-?-?-?-?-?-?-?-?-?-?- MH-NO VB, LOF. Good FM. Growth Us ordered and gave number to call. Glucose readings not brought with her but states 2 hr pp running 150s. Sees Dr Vaughan early next week to discuss insulin. 12/26/24-?-?-?-?-?-?-?-?-?-?-?-?- 34w 0d 264 lb 6 oz(+17 lb 6 oz) 138/82 Trace -?-?-?-?-?-?-?-?-?-?-?-?- Negative 140 36 -?-?-?-?-?-?-?-?-?-?-?-?- SM- no vb lof good fm n oregular ctx feeling uncomfortable, going to start leave now 01/08/25-?-?-?-?-?-?-?-?-?-?-?-?- 35w 6d 271 lb 4 oz(+24 lb 4 oz) 140/82 Trace -?-?-?-?-?-?-?-?-?-?-?-?- Negative 142 38 -?-?-?-?-?-?-?-?-?-?-?-?- -No VB, LOF. Good FM. States had normal BPP earlier today. Slight headache. Dr Vaughan increased insulin to 30 U QHS today. To for further evaluation/discussed with NORA 01/16/25-?-?-?-?-?-?-?-?-?-?-?-?- 37w 0d 272 lb 2 oz(+25 lb 2 oz) 121/83 Negative -?-?-?-?-?-?-?-?-?-?-?-?- Negative 140 39 Cephalic 1.5-?-?-?-?-?--?-?-? -?-?-?-?- 50 -2 SM- no vb lof good fm no regular ctx increased night time insulin, discussed may move up to 38 wek delivery if polyhydramnios 01/22/25-?-?-?-?-?-?-?-?-?-?-?-?- 37w 6d 273 lb 6 oz(+26 lb 6 oz) 125/84 Negative -?-?-?-?-?-?-?-?-?-?-?-?- Negative 140 41 Cephalic 1.5-?-?-?-?-?-?-?-?- ?-?-?-?- SM- no vb lof good fm no regular ctx 01/29/25-?-?-?-?-?-?-?-?-?-?-?-?- 38w 6d 273 lb 6 oz(+26 lb 6 oz) 134/79 Negative -?-?-?-?-?-?-?-?-?-?-?-?- Negative 140 42 -?-?-?-?-?-?-?-?-?-?-?-?- Sm- no vb lof good fm no regular ctx ACOG First Trimester First Trimester: Discussed Second Trimester Second Trimester: Signs and Symptoms of Labor, Selecting a care provider, Reproductive Life Planning & Contreception, Care Planning, Depression/Anxiety and Intimate Partner Violence; Discussed Tobacco Cessation Third Trimester Third Trimester: Pain Management Plans, Labor support person(s), Immediate Larc, Circumcision preference, Movement Monitoring, Signs and Symptoms of Preeclampsia, Infant Feeding No and Family Medical Leave or Disability Forms; Discussed Tobacco Cessation ROS Const Reports system reviewed and no additional complaints, except as documented Card Reports system reviewed and no additional complaints, except as documented Resp Reports system reviewed and no additional complaints, except as documented GI Reports system reviewed and no additional complaints, except as documented and Reports nausea Reports system reviewed and no additional complaints, except as documented Musc Reports system reviewed and no additional complaints, except as documented Exam Const General: cooperative, healthy appearing, comfortable and anxious HENVA Head: normal to inspection Nose: external nose normal Face and sinus: normal facial exam Neck Neck: normal visual inspection, full ROM and no lymphadenopathy Thyroid: thyroid normal Chest Chest palpation & inspection: normal inspection of the chest Resp Effort & Inspection: normal respiratory effort GI Inspection: normal to inspection Palpation: soft and other (gravid uterus) Other: vertex and appropriate size for gestational age Other: Cervical Exam: Extrem General: pedal edema Results POC Urinalysis 2 Dip (Clinic) Office Urine Glucose Negative Last Edit by Anisa June on 01/29/25 15:09 Office Urine Protein Negative Last Edit by Anisa June on 01/29/25 15:09 Coding Level of Care Code OB Routine Diagnoses Gestational diabetes mellitus (GDM) affecting , antepartum O24.419 Circumvallate placenta in third trimester O43.113 Trimester: third trimester Obesity affecting in third trimester, unspecified obesity type O99.213 Obesity type affecting : unspecified obesity Trimester: third trimester History of miscarriage, currently O09.299 Anxiety F41.9 Mild depression F32.A Adopted Z02.82 Marijuana use F12.90 History of pre-eclampsia in prior , currently O09.299 Hx of gestational diabetes in prior , currently O09.299; Z86.32 Supervision of high risk in third trimester O09.93 Trimester: third trimester 38 weeks gestation of Z3A.38 Weeks of gestation: 38 weeks Previous section Z98.891 Pelvic floor dysfunction in female M62.89 Allergy to adhesive tape Z91.048 Assessment and Plan Assessment and Plan (1) Gestational diabetes mellitus (GDM) affecting , antepartum: Status: Acute Comment: on NPH insulin at night. discussed if polyhydramnios may recommend 38 week delivery. C/s 01/30 SM. (2) Circumvallate placenta: Status: Acute Qualifiers: Trimester: third trimester Qualified Code(s): O43.113 - Circumvallate placenta, third trimester Comment: growth US Q4w (3) Obesity affecting : Status: Acute Qualifiers: Obesity type affecting : unspecified obesity Trimester: third trimester Qualified Code(s): O99.213 - Obesity complicating , third trimester Comment: HgbA1c (4) History of miscarriage, currently : Status: Acute (5) Anxiety: Status: Acute (6) Mild depression: Status: Acute (7) Adopted: Status: Acute Comment: limited known family history (8) Marijuana use: Status: Acute Comment: positive at NOB, encouraged cessation, pt aware of random tox screens, Pt states uses 4 days/week in morning due to lack of appetite (9) History of pre-eclampsia in prior , currently : Status: Acute Comment: asa and pre e labs (10) Hx of gestational diabetes in prior , currently : Status: Acute Comment: early 1 hour gct (11) Supervision of high-risk : Status: Acute Qualifiers: Trimester: third trimester Qualified Code(s): O09.93 - Supervision of high risk , unspecified, third trimester Comment: PRR, , ANNA MARIE 02/06/25, girl PC Radames Powell, Andre- goes by Reuben (12) : Status: Acute Qualifiers: Weeks of gestation: 38 weeks Qualified Code(s): Z3A.38 - 38 weeks gestation of Comment: NIPT low risk (13) Previous section: Status: Acute (14) Pelvic floor dysfunction in female: Status: Acute (15) Allergy to adhesive tape: Status: Acute Orders: Orders POC Urinalysis 2 Dip (Clinic) Today plan RLTCS UPDATE- I have seen the patient and performed any clinically relevant updates to the history and physical exam. Fadumo Johnson MD
--- NOTE | 2025-01-30 07:13 | EX.PCM.OBRPT ---
Assessment & Plan (1) Gestational diabetes mellitus (GDM) affecting , antepartum: COMMENT: on NPH insulin at night. discussed if polyhydramnios may recommend 38 week delivery. C/s 01/30 . (2) Circumvallate placenta: QUALIFIERS: Trimester: third trimester Qualified Code(s): O43.113 - Circumvallate placenta, third trimester COMMENT: growth US Q4w (3) Obesity affecting : QUALIFIERS: Trimester: third trimester Obesity type affecting : unspecified obesity Qualified Code(s): O99.213 - Obesity complicating , third trimester COMMENT: HgbA1c (4) History of miscarriage, currently : (5) Mild depression: (6) Marijuana use: COMMENT: positive at NOB, encouraged cessation, pt aware of random tox screens, Pt states uses 4 days/week in morning due to lack of appetite (7) History of pre-eclampsia in prior , currently : COMMENT: asa and pre e labs (8) Hx of gestational diabetes in prior , currently : COMMENT: early 1 hour gct (9) Supervision of high-risk : QUALIFIERS: Trimester: third trimester Qualified Code(s): O09.93 - Supervision of high risk , unspecified, third trimester COMMENT: PRR, , ANNA MARIE 02/06/[birth year], girl PC Radames Powell, Andre- goes by Reuben (10) : QUALIFIERS: Weeks of gestation: 38 weeks Qualified Code(s): Z3A.38 - 38 weeks gestation of COMMENT: NIPT low risk (11) delivery delivered: COMMENT: RLTCS girl 39 GDMA2 Shelia Maternal Data Information ANNA MARIE Calculator Estimated Delivery Date Method Current WG Current Estimate 02/06/25 LMP (Certain) 39w 0d Other Estimates 02/05/25 Ultrasound #1 39w 1d Final ANNA MARIE Source: LMP Operative Report (OB) Details Procedure Type: low transverse Date of Procedure: 01/30/25 Procedure Start Time: 07:47 Pre-Operative Diagnosis: Repeat Elective and Other Other Pre-Operative diagnosis: see a/p comments Post-Operative Diagnosis: Same as Pre-operative diagnosis Classification: Scheduled Type of Anesthesia: Spinal Special Medications: none Antibiotic Given: Ancef 2 grams IV x1 Drain: Arceo to straight drain Estimated Blood Loss: 800 Fluids Replaced: crystalloid Findings Description of surgery: Arceo catheter was placed. The patient was placed in the dorsal supine position with leftward tilt. Patient was prepped and draped in the normal sterile fashion. Pfannenstiel skin incision was made with the scalpel and carried through to the underlying layer of fascia with the scalpel. Fascia was nicked in the midline and the incision extended laterally. The rectus bellies were dissected off superiorly and inferiorly with out complication both sharply and bluntly. The peritoneum was entered digitally. The incision was stretched and a low transverse uterine incision was made with the scalpel. The 's head was delivered atraumatically followed by the anterior and posterior shoulders without complication the rest of the infant delivered. The cord was clamped and cut and the was handed off to awaiting nurse. The placenta was delivered spontaneously immediately following and was noted to be intact and have a three-vessel cord. The uterus was exteriorized cleared of all clots and debris, and the incision was closed in a double layer closure using #1 Monocryl. The ovaries and fallopian tubes were noted to be within normal limits. The uterus was returned to the maternal abdomen and gutters were cleared of all clots and debris. The peritoneum was closed with 3-0 Monocryl in a running fashion. Gloves were changed prior to fascial closure. Fascia was closed with 0 PDS in a running fashion. Subcutaneous tissue was copiously irrigated and the skin was closed with 3-0 Monocryl in a subcuticular fashion. Mepilex dressing was applied without complication. Patient was taken to recovery in stable condition. It was discussed with the patient that based on the clinical information obtained during this encounter, combined with her history, at this time I would recommend cesareans for future deliveries if further pregnancies are desired. Surgical findings: some scarring, minimal Presentation: Vertex Amniotic Membrane Rupture Type: Artificial Amniotic Fluid Description: Clear Specimen collected: Yes Description of specimen(s) removed: placenta and baby Cord Vessel Description: 3 Vessels Delayed Cord Clamping: Yes Hot Wire Glass Tube Cutter airline pilot: Yes Corporate General Manager: Ada Martell Tasks completed by human resources executive assistant: Opening & closing, Retracting and Other (assisting in delivery of the infant) Additional diet assistant?: No Complications Complications: No Admit VTE Documentation VTE Present on Admission: No VTE Mechan Device Prophylaxis: SCD's Procedures Urinary/Genital [id number]: [id number] Delivery [facility]
--- NOTE | 2025-01-30 07:13 | PCM.DC ---
Discharge Instructions DC O2, CPAP, BIPAP needs Home O2 Discharge instructions: No Dressing / Incision Discharge Activity: May Not Drive (for 2 weeks or while taking narcotic pain medications.), May Shower and May Take a Tub Bath (in 7 days) May shower in (days): 0 May resume sexual activity in: 4-6 weeks Weight Bearing Status: Full weight bearing Lifting Restrictions: 20 pounds Dressing / Incision Call your doctor if your incision/area has: Continuous Slow Oozing, Sudden Increased Bleeding, Increased Pain/ Swelling, Increased Redness and Foul Smelling Discharge Call your doctor if you observe: Fever of 101 or Higher and Using more than 1 pad per hour (for 2 hours) Suture Line Care: Avoid Pulling/Pushing and Avoid Pinching/Bending Cleanse incision/area with: Soap & Water and Keep Dressing Clean & Dry Follow Up Care Please Follow Up With: Fadumo Johnson MD When: Call [phone] to make an appointment for an incision check in 1-2 weeks. Test Results: Test results from this visit will be discussed in further detail at your follow-up appointment, if applicable. Discharge Plan Admission Admit Date/Time: 01/30/25 05:14 Attending Provider: Fadumo Johnson Primary Care Provider: Bianca Borrero NP Discharge Orders/Prescriptions Prescriptions: New oxycodone-acetaminophen [Percocet] 5-325 mg tablet 1 tab PO Q4H PRN (Reason: pain) 7 Days Qty: 20 0RF naproxen 500 mg tablet 500 mg PO BID PRN PRN (Reason: Pain) Qty: 30 1RF No Action PNV-[place] 28-1-300 mg capsule 300 cap PO DAILY insulin degludec [Tresiba FlexTouch U-100] 100 unit/mL (3 mL) insulin pen 46 unit subcut QHS (DME) FreeStyle Dot 3 [place] Misc See Rx Instructions .Route Qty: 1 0RF Rx Instructions: As directed (DME) FreeStyle Dot 3 Sensor Device See Rx Instructions .Route Qty: 1 8RF Rx Instructions: As directed Referrals / Follow Up: Bianca Borrero NP, PRODUCTION WORKER-C [Primary Care Provider] - Disposition Disposition (needs filled in before D/C Order can be placed): Home, Self Care
[2025-01-30 07:27] LABS: Syphilis Antibodies Nonreactive (Nonreactive)
[2025-01-30 07:35] LABS: Barbiturate Urine NEGATIVE (< 200 ng/mL); Benzodiazepine Urine NEGATIVE (< 200 ng/mL); PCP Urine NEGATIVE (< 25 ng/mL); THC Urine PRESUMPTIVE POSITIVE (< 50 ng/mL)
[2025-01-30] MEDS: Oxytocin 15 Units/NS 250ml 15 UNITS/250 ML IV.SOLN 83 UNITS IV (09:00)
[2025-01-30] MEDS: Ketorolac 30 MG/ML Syringe IV ×3 (09:23→21:31)
[2025-01-30] MEDS: 0.9% Saline Lock 10 ML Syringe IV ×7 (09:23→21:31)
[2025-01-30] MEDS: Lactated Ringers 1,000 ML 100 ML IV (11:59)
[2025-01-30] MEDS: Senna/Docusate Sodium 1 Tablet PO (12:09)
--- NOTE | 2025-01-30 16:57 | NURSING ---
Ambulation delayed due to earlier nausea and working with
[2025-01-31] MEDS: guaiFENesin 10 ML UDC (200MG/10ML) 20 ML PO (00:17)
[2025-01-31] MEDS: Ketorolac 30 MG/ML Syringe IV (03:41)
[2025-01-31 03:53] VITALS: BP 119/78; PULSE 80; RESP 16; TEMP 36.4; O2SAT 98
[2025-01-31 06:39] LABS: Hematocrit 30.1 % (37-47); Hemoglobin 10.0 g/dL (12.0-15.0); Mean Corp Hgb Conc 33.2 g/dL (32-36); Mean Corpuscular Volume 88.5 fL (81-99); Mean Platelet Vol. 10.3 fl (6.2-12.0); Platelet Count 228 K/mm3 (150-450); RBC Distribution Width CV 14.6 % (11.6-14.6); RBC Distribution Width SD 47.3 fl (35.1-43.9); Red Blood Count 3.40 M/mm3 (4.2-5.4); White Blood Count 9.4 K/mm3 (4.4-11.0)
--- NOTE | 2025-01-31 08:15 | PCM.PN.CNM ---
Subjective Subjective S/P Repeat on 01/30/25, reports feeling well, is calm, cooperative and resting comfortably in bed. Objective Data Objective Data Vital Signs: Vital Signs Temp Pulse Resp BP Pulse Ox O2 Del Method 97.5 F L 80 16 119/78 98 Room Air 01/31/25 03:53 01/31/25 03:53 01/31/25 03:53 01/31/25 03:53 01/31/25 03:53 01/31/25 03:53 Oxygen Delivery Method Room Air Weight: 275 lb 6 oz Body Mass Index (BMI) 48.7 Intake & Output: Intake and Output for Last 24 Hours 01/29/25 01/30/25 01/31/25 23:59 23:59 23:59 Intake Total 1884.17 / 1884.17 Output Total 1900 / 1900 Balance -15.83 / -15.83 Lab / Micro Data Attestation: I reviewed the patient's lab results. 01/31/25 06:20 Labs: Laboratory Results - last 24 hr 01/30/25 09:33: POC Glucose 119 H 01/31/25 06:20: WBC 9.4, RBC 3.40 L, Hgb 10.0 L, Hct 30.1 L, MCV 88.5, MCH 29.4, MCHC 33.2, RDW Std Deviation 47.3 H, RDW Coeff of [place]ver 14.6, Plt Count 228, MPV 10.3 01/31/25 06:22: POC Glucose 78 ROS Constitutional Constitutional: Reports systems reviewed and no addt'l complaints, except as documented Eyes Eyes: Reports systems reviewed and no addt'l complaints, except as documented ENT HEENT: Reports systems reviewed and no addt'l complaints, except as documented Cardiovascular Cardiovascular: Reports systems reviewed and no addt'l complaints, except as documented Respiratory/Chest Respiratory/Chest: Reports systems reviewed and no addt'l complaints, except as documented Gastrointestinal Gastrointestinal: Reports systems reviewed and no addt'l complaints, except as documented Genitourinary Genitourinary: Reports systems reviewed and no addt'l complaints, except as documented Musculoskeletal Musculoskeletal: Reports systems reviewed and no addt'l complaints, except as documented Integumentary Integumentary: Reports systems reviewed and no addt'l complaints, except as documented Neurologic Neurologic: Reports systems reviewed and no addt'l complaints, except as documented Psychiatric Psychiatric: Reports systems reviewed and no addt'l complaints, except as documented Physical Exam Const alert, oriented x3 and no apparent distress General Appearance: cooperative, comfortable, well kempt and well developed HEENT normocephalic Chest inspection of chest normal and palpation of chest normal Chest Narrative: Respirations eased & unlabored. no s/s of respiratory distress noted. GI normal to inspection, nondistended, normoactive bowel sounds, soft to palpation, non-tender and non-distended GI Narrative: Pt reports passing flatus. Uterus Palpation: uterus fundus firm (Midline, u/1, small amount of dark red lochia, no odor.) Skin Skin Narrative: LTCS wound dressing dry & intact. No drainage noted. Neuro oriented x3 Psych mental status grossly normal, thought process normal, cooperative, affect normal and speech normal Assessment & Plan (1) delivery delivered: COMMENT: RLTCS girl 39 GDMA2 Shelia (2) Gestational diabetes mellitus (GDM) affecting , antepartum: COMMENT: on NPH insulin at night. discussed if polyhydramnios may recommend 38 week delivery. C/s 01/30 . PLAN: Dsc'd 2 hr Glucose testing at 6wks PP visit. Enc'd to maintain adapted lifestyle, exercise & dietary changes along with dsc'd increased risk for developing Type 2 Diabetes later in life. PLAN: Plan s/p LTCS PPD # 1 1. routine post care 2. breast feeding- support given 3. rh positive 4. rubella immune 5. Desires d/c to home today. 6. Continue PNV daily while 7. Take additional Iron supplement daily w/Vit C for 6 wks.
[2025-01-31 08:40] VITALS: BP 122/92; PULSE 69; RESP 16; TEMP 36.1; O2SAT 98
--- NOTE | 2025-01-31 11:50 | CASEMGMT ---
Social Work Assessment Labor and Delivery Unit Patient Address: [address] [place] [address] Phone number: [phone] Date of Referral: 01/30/25 Time of Referral: 06:03 Referred By: Fadumo Johnson Date of Intervention: 01/31/25 Time of Intervention: 11:50 Reason for Referral: THC use during , anxiety and depression. History obtained from: Medical records, mother of baby (MOB) and father of baby (FOB).? Household composition: MOB FOAshleigh (Andre Cain III, aka ?Reuben?, age 26), their two sons, Andre, age 4, Radames, age 18 months and daughter, Artur, born on 01/30/25 live with ?s maternal grandparents (MGP?s). MOB reported that she and the FOB have been allowed to renovate the basement to her parent?s house so that they have their own apartment within the home. ? Patient's parent/guardian status: MOB and FOB have been together for 6 years and have been for 5 years. ?MOB denied any previous or current issues of domestic violence and described a positive relationship with the FOB. MOB and FOB both denied having any other children. Medical History: : 4, Para, now 3.? JOE had a SAB on 07/05/2021. JOE received care (PNC) through [place] [facility] beginning at 8 weeks and 6 days. Visits were noted to be routine. Apgars: 8 and 8. Weight: 7lbs, 14oz. Preschool Education Director: Dr. Yolette Hutson. Educational Status: MOB and FOB denied any issues with reading, writing or learning comprehension. 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 The FOB earned his high school diploma. Financial Status: MOB and FOB reported that their income is sufficient to meet the needs of their family at this time since they live with ?s MGP?s. 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 FOAshleigh is currently employed full-time with [employer]. Infant Supplies: MOB and FOB reported they have the supplies they need for baby at this time including but not limited to: Car seat, bassinet, crib, pack-n-play, diapers, bottles, breast pump and clothing. Childcare/Caregiver(s): MOB reported that she is taking maternity leave through the end of the year and may not go back to work until next year. The FOB is allowed to take up to two weeks of paternity leave from work. Once the MOB returns to school and work, ?s MGP?s will provide childcare. Transportation: Both MOB and FOB are licensed drivers and have a reliable vehicle to get baby to and from all medical appointments. MOB and FOB denied any issues/barriers to transportation at this time. Programs/Agencies Involved: MOB reported she used to have Medicaid but then lost it, got it reinstated and lost it and just recently re-applied. WIC is not currently involved however the MOB had WIC with her first-born. MOB reported she attended counseling as a child but never as an adult. Children Services/Legal Issues: MOB reported someone made a referral to [facility] with her first-born due to the MOB smoking marijuana during . MOB reported she also smoked marijuana during her second however Children Services never got involved. MOB and FOB denied any previous or current legal involvement. Behavioral Health Issues:? Mental Health History: ??MOB has a history of anxiety and depression and is not on medication at this time.? MOB reported the of her first child was traumatic and reported symptoms are currently being managed at this time. FOB denied any history of mental health. ?Substance Use History:?? MOB and FOB denied any previous or current alcohol abuse or drug use other than marijuana. MOB and FOB both smoke marijuana and the MOB smoked throughout the as recent as the week of delivery. Automatic Embroidery Machine Tender provided education.? Family History:?? MOB is adopted so biological family history is not all known. MOB denied any knowledge of mental health history or drug or alcohol abuse history on her side of the family.? The FOB reported his paternal grandfather (PGF) is an alcoholic. ?Drug Screens: 01/30/25: MOB and baby both presumptive positive for cannabinoids. Meconium results pending for . ?Automatic Embroidery Machine Tender administered the [place] Depression Scale (EPDS). MOB?s score was a 3.? Automatic Embroidery Machine Tender provided education which the MOB verbalized she understood. Family/Social Stressors:?? Denied. Support Systems:? MOB identified her biggest support as the FOB, ?s MGS?s, paternal grandparents (PGP?s), MOB?s grandmother, MOB?s cousin and more of the FOB?s side of the family as well. Depression/Shaken Baby/Safe Sleeping: Automatic Embroidery Machine Tender provided verbal and written education on PPD, risk factors for PPD, Safe Sleeping and Shaken Baby.? MOB and FOB both verbalized an understanding. MOB reported she had PPD with her first born. ??? ASSESSMENT: MOB and FOB provided consent to social work visit. Upon arrival, the MOB was lying down in the hospital bed and the FOB was lying down on a nearby couch. Nogal was in the hospital crib sleeping. MOB were both very engaged and cooperative. Automatic Embroidery Machine Tender observed positive interaction between the MOB and FOB. ?At the end of the assessment, Automatic Embroidery Machine Tender requested to speak with the MOB alone, which she and the FOB were both agreeable to. MOB reported feeling safe in her home and denied any previous or current domestic violence, unmanaged mental health issues either with herself or with the FOB, and also denied any concerns with any additional drug or alcohol abuse either with herself or with the FOB as well as any unmanaged mantal health concerns. It should be noted that as the FOB left, the MOB got up from the bed and took from the crib and was holding and caressing ?s head. MOB appeared to be attached and bonded to and was observed to be very gentle and attentive with . Safe Plan of Care for related to substance use: MOB and FOB denied that any drugs or paraphernalia have ever been within reach/accessible to the children in the home. MOB and FOB denied ever being under the influence of marijuana while supervising/caring for/transporting any children in the home. 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 MOB has had a prescription for a medical marijuana card. Automatic Embroidery Machine Tender also provided verbal and written education on and marijuana use. PLAN: For MOB and baby to be discharged when medically ready. No other services requested or indicated. Automatic Embroidery Machine Tender will make a referral to Children Services due to drug use during per mandate. Evelin Vicente, SENIOR INSTRUCTIONAL DESIGNER, WAISTBAND SETTER
[2025-01-31] MEDS: Senna/Docusate Sodium 1 Tablet PO (12:03)
[2025-01-31 12:48] VITALS: BP 143/89; PULSE 72; RESP 18; TEMP 36.1; O2SAT 97
[2025-01-31 14:00] VITALS: BP 132/90
--- NOTE | 2025-01-31 15:43 | CASEMGMT ---
Social Work Full Stack Php Developer made phone contact with [facility] and spoke with Shen. Full Stack Php Developer made a referral due to drug abuse during . No restrictions on discharge. Evelin Vicente, ASPHALT ROLLER OPERATOR, TOBACCO STRIPPING MACHINE OPERATOR
--- NOTE | 2025-02-14 13:50 | CASEMGMT ---
Social Work: Inverter And Clipper received a written correspondence from [facility] dated 02/02/25 indicating that the referral was not accepted. Evelin Vicente, PRODUCE SORTER, PRINT BINDING WORKER
== END 2025-01-31 14:20 | disposition home or self-care (01) | DRG 787 ==
PROVIDERS: Admitting Provider Obstetrics & Gynecology; PCP Nurse Practitioner Family; Referring Provider Obstetrics & Gynecology; Visit Provider Obstetrics & Gynecology
PROC: 10D00Z1 Extraction of Products of Conception, Low, Open Approach (ICD-10-PCS; CPT 59514; principal; 2025-01-30 07:00)
DX: O24.424 Gestational diabetes mellitus in childbirth, insulin controlled (principal); O99.324 Drug use complicating childbirth; F32.0 Major depressive disorder, single episode, mild; O99.214 Obesity complicating childbirth; F12.90 Cannabis use, unspecified, uncomplicated; F41.9 Anxiety disorder, unspecified; Z37.0 Single live birth; O43.113 Circumvallate placenta, third trimester; Z87.891 Personal history of nicotine dependence; O99.344 Other mental disorders complicating childbirth; O34.211 Maternal care for low transverse scar from previous cesarean delivery; N96 Recurrent pregnancy loss; O99.893 Other specified diseases and conditions complicating puerperium; Z3A.39 39 weeks gestation of pregnancy; Z91.048 Other nonmedicinal substance allergy status
CPT/HCPCS: 59050; 80307; 82962; 85025; 85027; 86780; 86850; 86900; 86901; 99221; A4216; G0378; J2405

== ENCOUNTER → 2025-02-04 | Outpatient (CLI) | payer SELFPAY ==
[2025-02-04 16:38] LABS: Hematocrit 34.6 % (37-47); Hemoglobin 11.0 g/dL (12.0-15.0); Immature Granulocytes Count 0.100 X10^3/uL (0.0-0.0); Mean Corp Hgb Conc 31.8 g/dL (32-36); Mean Corpuscular Volume 91.1 fL (81-99); Mean Platelet Vol. 9.9 fl (6.2-12.0); NRBC Flagged by Analyzer 0 % (0-5); Platelet Count 393 K/mm3 (150-450); RBC Distribution Width CV 14.7 % (11.6-14.6); RBC Distribution Width SD 49.1 fl (35.1-43.9); Red Blood Count 3.80 M/mm3 (4.2-5.4); White Blood Count 8.6 K/mm3 (4.4-11.0)
[2025-02-04 17:20] LABS: AST(SGOT) 19 U/L (<=31); Alanine Aminotransfer ALT/SGPT 6 U/L (<=34); Albumin, Serum 3.5 g/dL (3.5-5.0); Alkaline Phosphatase 120 U/L (35-104); Anion Gap 14 (5-15); BUN 14 mg/dL (4-19); BUN/Creat Ratio 19.9 RATIO (10-20); Calcium,Total 9.6 mg/dL (7.6-11.0); Carbon Dioxide 23.4 mmol/L (21.0-32.0); Chloride 102 mmol/L (98-108); Globulin 3.1 g/dL (2.2-4.2); Glucose 66 mg/dL (70-99); Potassium 4.4 mmol/L (3.3-5.1)
[2025-02-04 18:23] LABS: Uric Acid 5.8 mg/dL (2.6-6.0)
== END | disposition home or self-care (01) ==
PROVIDERS: Advanced Practice Midwife; Obstetrics & Gynecology; PCP Nurse Practitioner Family; Referring Provider Nurse Practitioner Family; Visit Provider Nurse Practitioner Family
DX: O09.299 Supervision of pregnancy with other poor reproductive or obstetric history, unspecified trimester (principal); Z3A.00 Weeks of gestation of pregnancy not specified
CPT/HCPCS: 36415; 80053; 84550; 85025